=== PATIENT | female | born 1960 | race Caucasian/White ===

== ENCOUNTER 2017-07-11 16:59 | Inpatient (IN) | payer MEDICARE, OTHER ==
[2017-07-11 18:13] LABS: BASO # 0.1 10^3/uL (0.0-0.2); BASO % 0.9 % (0.0-1.0); EOS % 0.4 % (0.0-3.0); HEMATOCRIT 29.2 % (36.0-47.0); HEMOGLOBIN 9.3 g/dl (12.0-15.5); IMMATURE GRANULOCYTE % 0.4 % (0-3.0); LYMPH # 1.1 10^3/uL (1.5-4.5); LYMPH % 15.8 % (24.0-44.0); MEAN CORPUSCULAR HGB CONC 31.8 g/dl (32.0-36.5); MONO # 0.3 10^3/uL (0.0-0.8); MONO % 3.7 % (0.0-5.0); NEUTROPHILS # 5.4 10^3/uL (1.8-7.7); NEUTROPHILS % 78.8 % (36.0-66.0); PLATELET COUNT, AUTOMATED 363 10^3/uL (150-450); RED BLOOD COUNT 3.32 10^6/uL (4.00-5.40); RED CELL DISTRIBUTION WIDTH 14.2 % (11.5-14.5); WHITE BLOOD COUNT 6.8 10^3/uL (4.0-10.0)
[2017-07-11 18:22] LABS: INR 1.12; PROTHROMBIN TIME 14.6 SECONDS (12.4-14.5)
[2017-07-11 18:33] LABS: LACTIC ACID SEPSIS PROTOCOL 1.4 MMOL/L (0.4-2.0)
[2017-07-11 18:36] LABS: ALBUMIN 2.3 GM/DL (3.2-5.2); ALBUMIN/GLOBULIN RATIO 0.56 (1.00-1.93); ALKALINE PHOSPHATASE 192 U/L (45-117); ALT/SGPT 33 U/L (12-78); ANION GAP 11 MEQ/L (8-16); AST/SGOT 11 U/L (7-37); BILIRUBIN,DIRECT < 0.1 MG/DL (0.0-0.2); BILIRUBIN,TOTAL 0.1 MG/DL (0.2-1.0); BLOOD UREA NITROGEN 81 MG/DL (7-18); CALCIUM LEVEL 6.4 MG/DL (8.5-10.1); CARBON DIOXIDE LEVEL 17 MEQ/L (21-32); CHLORIDE LEVEL 110 MEQ/L (98-107); CPK CREATINE PHOSPHOKINASE 111 U/L (26-192); CREATININE FOR GFR 4.42 MG/DL (0.55-1.30); POTASSIUM SERUM 4.7 MEQ/L (3.5-5.1); SODIUM LEVEL 138 MEQ/L (136-145); TOTAL PROTEIN 6.4 GM/DL (6.4-8.2); TROPONIN I 0.03 NG/ML (< 0.10)
[2017-07-11 18:38] LABS: GLUCOSE, FASTING 409 MG/DL (70-100)
[2017-07-11 18:48] LABS: INFLUENZA A AMPLIFICATION NEGATIVE (NEGATIVE); INFLUENZA B AMPLIFICATION NEGATIVE (NEGATIVE)
[2017-07-11 18:51] LABS: CK-MB VALUE MASS 3.4 NG/ML (<3.6); MB/CK RELATIVE INDEX 3.06 (< OR =4); NT-PRO BNP 38772 PG/ML (<125)
[2017-07-11 19:11] LABS: C REACTIVE PROTEIN QUANTITATIV 5.29 MG/DL (0.00-0.30)
[2017-07-11] MEDS: ACETAMINOPHEN TAB 650MG DOSE (2X325MG) PO (19:30)
[2017-07-11 19:42] LABS: ERYTHROCYTE SEDIMENTATION RATE 56 mm/hr (0-30)
[2017-07-11] MEDS ORDERED: DEXTROSE 50% 50 ML SYRINGE IV (21:00)
[2017-07-11] MEDS: CYCLOBENZAPRINE 10 MG TAB PO (21:00)
[2017-07-11] MEDS ORDERED: GLUCAGON FOR INJ 1 MG VIAL (J1610) SC (21:00)
[2017-07-11] MEDS ORDERED: GLUCOSE 4 GM CHEW TABLET PO (21:00)
[2017-07-11] MEDS: PERCOCET 5MG/325MG TAB PO (21:08)
[2017-07-11] MEDS ORDERED: NITROGLYCERIN 0.4 MG SUBL TABLET SL (21:45)
[2017-07-11] MEDS: DOCUSATE SODIUM 100 MG CAP PO (22:40)
[2017-07-11 22:49] LABS: CK-MB VALUE MASS 3.5 NG/ML (<3.6); CPK CREATINE PHOSPHOKINASE 121 U/L (26-192); MB/CK RELATIVE INDEX 2.89 (< OR =4); TROPONIN I 0.04 NG/ML (< 0.10)
[2017-07-11] MEDS: ATORVASTATIN 20 MG TAB PO (23:07)
[2017-07-11] MEDS: ADACEL/BOOSTRIX VACCINE (DIPHTH/PERTUSS/ACELL/TETANUS)0.5ML SYR (90715) IM (23:08)
[2017-07-11] MEDS: NS 1,000 ML IV (23:08)
[2017-07-11] MEDS: METOPROLOL TART 50 MG TAB PO (23:08)
[2017-07-11] MEDS: AUGMENTIN 500 MG TAB PO (23:08)
[2017-07-11] MEDS: LEVEMIR (INSULIN DETEMIR) 1 UNITS/0.01ML SC (23:09)
[2017-07-11] MEDS: HumaLOG INSULIN (NovoLOG) PER UNIT SC (23:09)
[2017-07-12] MEDS: AUGMENTIN 500 MG TAB PO ×4 (00:17→22:23)
[2017-07-12] MEDS: PERCOCET 5MG/325MG TAB PO ×2 (00:56→05:28)
[2017-07-12] MEDS: CYCLOBENZAPRINE 10 MG TAB PO ×2 (02:39→20:32)
[2017-07-12] MEDS: HEPARIN SOD (PORCINE) 5000 UNITS/ML VIAL SC ×3 (05:29→22:23)
[2017-07-12 06:21] LABS: BEDSIDE GLUCOSE 278 MG/DL (70-105)
[2017-07-12 06:21] LABS: BEDSIDE GLUCOSE 496 MG/DL (70-105)
[2017-07-12 06:21] LABS: BEDSIDE GLUCOSE 217 MG/DL (70-105)
[2017-07-12 06:43] LABS: HEMATOCRIT 26.7 % (36.0-47.0); HEMOGLOBIN 8.6 g/dl (12.0-15.5); MEAN CORPUSCULAR HEMOGLOBIN 28.7 pg (27.0-33.0); MEAN CORPUSCULAR HGB CONC 32.2 g/dl (32.0-36.5); PLATELET COUNT, AUTOMATED 314 10^3/uL (150-450); RED CELL DISTRIBUTION WIDTH 14.3 % (11.5-14.5); WHITE BLOOD COUNT 6.8 10^3/uL (4.0-10.0)
[2017-07-12 07:07] LABS: ALBUMIN 1.9 GM/DL (3.2-5.2); ANION GAP 9 MEQ/L (8-16); BLOOD UREA NITROGEN 82 MG/DL (7-18); CALCIUM LEVEL 6.5 MG/DL (8.5-10.1); CARBON DIOXIDE LEVEL 18 MEQ/L (21-32); CHLORIDE LEVEL 114 MEQ/L (98-107); CK-MB VALUE MASS 3.3 NG/ML (<3.6); CPK CREATINE PHOSPHOKINASE 100 U/L (26-192); CREATININE FOR GFR 4.31 MG/DL (0.55-1.30); GLOMERULAR FILTRATION RATE 11.3 (>51); GLUCOSE, FASTING 63 MG/DL (70-100); PHOSPHORUS LEVEL 7.8 MG/DL (2.5-4.9); POTASSIUM SERUM 4.7 MEQ/L (3.5-5.1); SODIUM LEVEL 141 MEQ/L (136-145); TROPONIN I 0.04 NG/ML (< 0.10)
[2017-07-12] MEDS: HumaLOG INSULIN (NovoLOG) PER UNIT SC ×4 (07:30→20:21)
[2017-07-12] MEDS: LACTOBACILLUS ACIDOPHILUS CAP (BACID) PO ×3 (09:02→17:19)
[2017-07-12] MEDS: ASPIRIN 81 MG ENTERIC TAB PO (09:02)
[2017-07-12] MEDS: CLOPIDOGREL 75 MG TAB PO (09:02)
[2017-07-12] MEDS: METOPROLOL TART 50 MG TAB PO ×2 (09:03→20:32)
[2017-07-12] MEDS: LEVEMIR (INSULIN DETEMIR) 1 UNITS/0.01ML SC ×2 (09:03→20:34)
[2017-07-12] MEDS: amLODIPine 5 MG TAB PO (09:03)
[2017-07-12] MEDS: DOCUSATE SODIUM 100 MG CAP PO ×2 (09:03→20:31)
[2017-07-12] MEDS: NS 1,000 ML IV ×2 (13:21→21:30)
[2017-07-12] MEDS: NORCO, ANEXSIA 5/325MG TABLET (HYDROcodone/ACETAMINOPHEN) PO ×2 (14:39→20:34)
[2017-07-12 17:20] LABS: BEDSIDE GLUCOSE 291 MG/DL (70-105)
[2017-07-12] MEDS: ADVAIR HFA 230/21MCG INHALER INH (19:48)
[2017-07-12] MEDS: ATORVASTATIN 20 MG TAB PO (20:32)
[2017-07-12 20:34] LABS: AMORPHOUS SEDIMENT SMALL (NEGATIVE); APPEARANCE, URINE CLOUDY (CLEAR); BACTERIA, URINE AUTO NEGATIVE (NEGATIVE); BILIRUBIN, URINE AUTO NEGATIVE (NEGATIVE); BLOOD, URINE BLOOD 1+ (NEGATIVE); COLOR, URINE YELLOW (YELLOW); GLUCOSE, URINE (UA) AUTO 3+ mg/dL (NEGATIVE); KETONE, URINE AUTO NEGATIVE (NEGATIVE); LEUKOCYTE ESTERASE, URINE AUTO NEGATIVE (NEGATIVE); MUCUS, URINE SMALL (NEGATIVE); NITRITE, URINE AUTO NEGATIVE (NEGATIVE); PROTEIN, URINE AUTO 3+ mg/dL (NEGATIVE); RBC, URINE AUTO 2 /HPF (0-3); SPECIFIC GRAVITY URINE AUTO 1.012 (1.002-1.035); SQUAMOUS EPITHELIAL CELL UR AU 3 /HPF (0-6); UROBILINOGEN, URINE AUTO 0.2 mg/dL (0.0-2.0); WBC, URINE AUTO 2 /HPF (0-3)
[2017-07-12 20:42] LABS: CREATININE,RANDOM URINE 71.2 MG/DL; SODIUM,RANDOM URINE 12 MEQ/L
[2017-07-12 20:47] LABS: BEDSIDE GLUCOSE 208 MG/DL (70-105)
[2017-07-12] MEDS: ACETAMINOPHEN TAB 650MG DOSE (2X325MG) PO (23:41)
[2017-07-13] MEDS ORDERED: UNRESOLVED CLARIFICATION ENTRY XX (00:01)
[2017-07-13] MEDS: NORCO, ANEXSIA 5/325MG TABLET (HYDROcodone/ACETAMINOPHEN) PO ×5 (00:32→21:49)
[2017-07-13] MEDS: AUGMENTIN 500 MG TAB PO ×3 (05:05→21:47)
[2017-07-13] MEDS: HEPARIN SOD (PORCINE) 5000 UNITS/ML VIAL SC ×3 (05:06→21:47)
[2017-07-13 06:11] LABS: HEMATOCRIT 27.2 % (36.0-47.0); HEMOGLOBIN 8.7 g/dl (12.0-15.5); MEAN CORPUSCULAR HEMOGLOBIN 27.6 pg (27.0-33.0); MEAN CORPUSCULAR VOLUME 86.3 fl (80.0-96.0); PLATELET COUNT, AUTOMATED 338 10^3/uL (150-450); RED BLOOD COUNT 3.15 10^6/uL (4.00-5.40); RED CELL DISTRIBUTION WIDTH 14.2 % (11.5-14.5); WHITE BLOOD COUNT 6.1 10^3/uL (4.0-10.0)
[2017-07-13 06:34] LABS: ALBUMIN 1.9 GM/DL (3.2-5.2); ANION GAP 10 MEQ/L (8-16); BLOOD UREA NITROGEN 82 MG/DL (7-18); C REACTIVE PROTEIN QUANTITATIV 3.99 MG/DL (0.00-0.30); CALCIUM LEVEL 6.2 MG/DL (8.5-10.1); CARBON DIOXIDE LEVEL 14 MEQ/L (21-32); CHLORIDE LEVEL 112 MEQ/L (98-107); GLOMERULAR FILTRATION RATE 11.7 (>51); GLUCOSE, FASTING 59 MG/DL (70-100); PHOSPHORUS LEVEL 7.8 MG/DL (2.5-4.9); SODIUM LEVEL 136 MEQ/L (136-145)
[2017-07-13] MEDS: HumaLOG INSULIN (NovoLOG) PER UNIT SC ×4 (07:18→21:00)
[2017-07-13 07:38] LABS: BEDSIDE GLUCOSE 193 MG/DL (70-105)
[2017-07-13] MEDS: ADVAIR HFA 230/21MCG INHALER INH ×2 (07:52→21:42)
[2017-07-13] MEDS: LEVEMIR (INSULIN DETEMIR) 1 UNITS/0.01ML SC ×3 (08:53→21:00)
[2017-07-13] MEDS: amLODIPine 5 MG TAB PO (08:58)
[2017-07-13] MEDS: LACTOBACILLUS ACIDOPHILUS CAP (BACID) PO ×3 (08:58→17:34)
[2017-07-13] MEDS: CLOPIDOGREL 75 MG TAB PO (08:59)
[2017-07-13] MEDS: METOPROLOL TART 50 MG TAB PO ×2 (08:59→21:46)
[2017-07-13] MEDS: DOCUSATE SODIUM 100 MG CAP PO ×2 (08:59→21:47)
[2017-07-13] MEDS: ASPIRIN 81 MG ENTERIC TAB PO (08:59)
[2017-07-13 12:29] LABS: BEDSIDE GLUCOSE 167 MG/DL (70-105)
[2017-07-13] MEDS: SODIUM BICARBONATE 150 MEQ in STERILE WATER LITER BAG 1,000 ML IV (12:35)
[2017-07-13 16:55] LABS: BEDSIDE GLUCOSE 120 MG/DL (70-105)
[2017-07-13] MEDS: FUROSEMIDE 40 MG/4 ML VIAL (J1940) IV (17:34)
[2017-07-13 20:53] LABS: BEDSIDE GLUCOSE 235 MG/DL (70-105)
[2017-07-13] MEDS: ATORVASTATIN 20 MG TAB PO (21:46)
[2017-07-13] MEDS: CYCLOBENZAPRINE 10 MG TAB PO (21:47)
[2017-07-14] MEDS: SODIUM BICARBONATE 150 MEQ in STERILE WATER LITER BAG 1,000 ML IV ×3 (02:38→21:57)
[2017-07-14] MEDS: NORCO, ANEXSIA 5/325MG TABLET (HYDROcodone/ACETAMINOPHEN) PO ×4 (02:43→21:56)
[2017-07-14] MEDS: AUGMENTIN 500 MG TAB PO ×3 (05:36→21:53)
[2017-07-14] MEDS: HEPARIN SOD (PORCINE) 5000 UNITS/ML VIAL SC ×3 (05:37→21:54)
[2017-07-14 06:31] LABS: HEMATOCRIT 24.3 % (36.0-47.0); HEMOGLOBIN 7.9 g/dl (12.0-15.5); MEAN CORPUSCULAR HEMOGLOBIN 28.2 pg (27.0-33.0); MEAN CORPUSCULAR HGB CONC 32.5 g/dl (32.0-36.5); MEAN CORPUSCULAR VOLUME 86.8 fl (80.0-96.0); PLATELET COUNT, AUTOMATED 305 10^3/uL (150-450); WHITE BLOOD COUNT 5.8 10^3/uL (4.0-10.0)
[2017-07-14 06:44] LABS: ALBUMIN 1.8 GM/DL (3.2-5.2); BLOOD UREA NITROGEN 78 MG/DL (7-18); C REACTIVE PROTEIN QUANTITATIV 6.52 MG/DL (0.00-0.30); CHLORIDE LEVEL 101 MEQ/L (98-107); CREATININE FOR GFR 4.03 MG/DL (0.55-1.30); GLUCOSE, FASTING 297 MG/DL (70-100); PHOSPHORUS LEVEL 7.4 MG/DL (2.5-4.9); POTASSIUM SERUM 4.9 MEQ/L (3.5-5.1); SODIUM LEVEL 130 MEQ/L (136-145)
[2017-07-14] MEDS: HumaLOG INSULIN (NovoLOG) PER UNIT SC ×4 (07:30→21:00)
[2017-07-14] MEDS: LEVEMIR (INSULIN DETEMIR) 1 UNITS/0.01ML SC ×2 (09:03→21:55)
[2017-07-14] MEDS: LACTOBACILLUS ACIDOPHILUS CAP (BACID) PO ×3 (09:03→16:07)
[2017-07-14] MEDS: amLODIPine 5 MG TAB PO (09:04)
[2017-07-14] MEDS: METOPROLOL TART 50 MG TAB PO ×2 (09:04→21:54)
[2017-07-14] MEDS: DOCUSATE SODIUM 100 MG CAP PO ×2 (09:04→21:53)
[2017-07-14] MEDS: CLOPIDOGREL 75 MG TAB PO (09:16)
[2017-07-14] MEDS: ASPIRIN 81 MG ENTERIC TAB PO (09:16)
[2017-07-14] MEDS: ADVAIR HFA 230/21MCG INHALER INH ×2 (09:41→21:18)
[2017-07-14] MEDS ORDERED: guaiFENesin SYRUP 200 MG/10 ML UDC PO (09:45)
[2017-07-14 10:30] LABS: ANION GAP 13 MEQ/L (8-16); CARBON DIOXIDE LEVEL 16 MEQ/L (21-32)
[2017-07-14] MEDS: CALCIUM CARBONATE 500 MG CHEW U/D PO ×2 (12:00→16:07)
[2017-07-14 12:37] LABS: BEDSIDE GLUCOSE 334 MG/DL (70-105)
[2017-07-14 12:59] LABS: IMMEDIATE SPIN CROSSMATCH 1 1
[2017-07-14 13:58] LABS: FERRITIN 69 NG/ML (8-252); IRON (FE) 22 UG/DL (50-170); PERCENT SATURATION 10.8 % (13.2-45.0); TOTAL IRON BINDING CAPACITY 204 UG/DL (250-450)
[2017-07-14 14:20] LABS: OSMOLALITY SERUM 301 MOSM/KG (275-295)
[2017-07-14 15:53] LABS: BEDSIDE GLUCOSE 214 MG/DL (70-105)
[2017-07-14] MEDS: IPRATROPIUM 0.5MG/ALBUTEROL 2.5MG INH SOL UD 3ML (DUONEB)(J7620) NEB (16:18)
[2017-07-14 20:57] LABS: BEDSIDE GLUCOSE 143 MG/DL (70-105)
[2017-07-14] MEDS: CYCLOBENZAPRINE 10 MG TAB PO (21:53)
[2017-07-14] MEDS: ATORVASTATIN 20 MG TAB PO (21:53)
[2017-07-15] MEDS: ALPRAZolam 0.25 MG TAB PO ×2 (00:06→14:06)
[2017-07-15] MEDS: NORCO, ANEXSIA 5/325MG TABLET (HYDROcodone/ACETAMINOPHEN) PO ×3 (03:34→22:26)
[2017-07-15 05:51] LABS: HEMATOCRIT 26.9 % (36.0-47.0); HEMOGLOBIN 9.1 g/dl (12.0-15.5); MEAN CORPUSCULAR HEMOGLOBIN 27.7 pg (27.0-33.0); MEAN CORPUSCULAR HGB CONC 33.8 g/dl (32.0-36.5); PLATELET COUNT, AUTOMATED 314 10^3/uL (150-450); RED BLOOD COUNT 3.28 10^6/uL (4.00-5.40); RED CELL DISTRIBUTION WIDTH 14.7 % (11.5-14.5); WHITE BLOOD COUNT 8.4 10^3/uL (4.0-10.0)
[2017-07-15] MEDS: HEPARIN SOD (PORCINE) 5000 UNITS/ML VIAL SC (05:59)
[2017-07-15] MEDS: AUGMENTIN 500 MG TAB PO ×3 (05:59→22:27)
[2017-07-15 06:06] LABS: ALBUMIN 1.8 GM/DL (3.2-5.2); ANION GAP 14 MEQ/L (8-16); BLOOD UREA NITROGEN 73 MG/DL (7-18); CALCIUM LEVEL 5.8 MG/DL (8.5-10.1); CARBON DIOXIDE LEVEL 18 MEQ/L (21-32); CHLORIDE LEVEL 100 MEQ/L (98-107); CREATININE FOR GFR 3.98 MG/DL (0.55-1.30); GLOMERULAR FILTRATION RATE 12.4 (>51); GLUCOSE, FASTING 216 MG/DL (70-100); PHOSPHORUS LEVEL 7.2 MG/DL (2.5-4.9); POTASSIUM SERUM 4.6 MEQ/L (3.5-5.1); SODIUM LEVEL 132 MEQ/L (136-145)
[2017-07-15 06:43] LABS: OSMOLALITY URINE 238 MOSM/KG (500-800)
[2017-07-15 06:57] LABS: AMORPHOUS SEDIMENT SMALL (NEGATIVE); APPEARANCE, URINE HAZY (CLEAR); BACTERIA, URINE AUTO NEGATIVE (NEGATIVE); BILIRUBIN, URINE AUTO NEGATIVE (NEGATIVE); BLOOD, URINE BLOOD 1+ (NEGATIVE); COLOR, URINE YELLOW (YELLOW); GLUCOSE, URINE (UA) AUTO 1+ mg/dL (NEGATIVE); KETONE, URINE AUTO NEGATIVE (NEGATIVE); LEUKOCYTE ESTERASE, URINE AUTO NEGATIVE (NEGATIVE); MUCUS, URINE SMALL (NEGATIVE); NITRITE, URINE AUTO NEGATIVE (NEGATIVE); PROTEIN, URINE AUTO 3+ mg/dL (NEGATIVE); RBC, URINE AUTO 1 /HPF (0-3); SQUAMOUS EPITHELIAL CELL UR AU 2 /HPF (0-6); UROBILINOGEN, URINE AUTO 0.2 mg/dL (0.0-2.0); WBC, URINE AUTO 3 /HPF (0-3)
[2017-07-15 07:07] LABS: CREATININE,RANDOM URINE 46.2 MG/DL; SODIUM,RANDOM URINE 14 MEQ/L
[2017-07-15 08:07] LABS: TRANSFERRIN 150 mg/dL (200-370)
[2017-07-15] MEDS: ADVAIR HFA 230/21MCG INHALER INH ×2 (08:10→21:00)
[2017-07-15] MEDS: LACTOBACILLUS ACIDOPHILUS CAP (BACID) PO ×3 (08:54→17:56)
[2017-07-15] MEDS: ASPIRIN 81 MG ENTERIC TAB PO (08:54)
[2017-07-15] MEDS: amLODIPine 5 MG TAB PO (08:56)
[2017-07-15] MEDS: CLOPIDOGREL 75 MG TAB PO (08:56)
[2017-07-15] MEDS: CALCIUM CARBONATE 500 MG CHEW U/D PO ×3 (08:57→17:57)
[2017-07-15] MEDS: DOCUSATE SODIUM 100 MG CAP PO ×2 (08:57→22:27)
[2017-07-15] MEDS: METOPROLOL TART 50 MG TAB PO ×2 (08:57→22:25)
[2017-07-15] MEDS: LEVEMIR (INSULIN DETEMIR) 1 UNITS/0.01ML SC ×2 (08:58→22:28)
[2017-07-15] MEDS: SODIUM BICARBONATE 150 MEQ in STERILE WATER LITER BAG 1,000 ML IV (08:58)
[2017-07-15] MEDS: HumaLOG INSULIN (NovoLOG) PER UNIT SC ×4 (08:58→22:28)
[2017-07-15 12:17] LABS: BEDSIDE GLUCOSE 322 MG/DL (70-105)
[2017-07-15 12:37] LABS: PARTIAL THROMBOPLASTIN TIME 40.3 SECONDS (26.8-37.9)
[2017-07-15] MEDS: HEPARIN DRIP 25,000 UNITS in APPROPRIATE DILUENT 1 EA IV (14:06)
[2017-07-15] MEDS ORDERED: IRON SUCROSE 100MG 5ML VIAL (J1756 PER 1MG) IV (15:15)
[2017-07-15 16:57] LABS: BEDSIDE GLUCOSE 99 MG/DL (70-105)
[2017-07-15 20:13] LABS: PARTIAL THROMBOPLASTIN TIME 99.1 SECONDS (26.8-37.9)
[2017-07-15] MEDS: ONDANSETRON 4MG/2ML VIAL (J2405) IV (20:36)
[2017-07-15 20:40] LABS: ESTIMATED AVERAGE GLUCOSE 235 MG/DL (60-110); HEMOGLOBIN A1c 9.8 %
[2017-07-15 20:56] LABS: BEDSIDE GLUCOSE 72 MG/DL (70-105)
[2017-07-15 21:15] LABS: CHOLESTEROL LEVEL 95 MG/DL (<200); CHOLESTEROL RISK RATIO 1.979 (<5); HDL CHOLESTEROL 48 MG/DL (>40); LDL CHOLESTEROL 34.6 MG/DL (<100); NON-HDL-C 47 MG/DL; TRIGLYCERIDES LEVEL 62 MG/DL (<150)
[2017-07-15] MEDS: SODIUM BICARBONATE 325 MG TAB PO (22:24)
[2017-07-15] MEDS: CYCLOBENZAPRINE 10 MG TAB PO (22:24)
[2017-07-15] MEDS: ATORVASTATIN 20 MG TAB PO (22:27)
[2017-07-16 02:26] LABS: PARTIAL THROMBOPLASTIN TIME 81.5 SECONDS (26.8-37.9)
[2017-07-16] MEDS: NORCO, ANEXSIA 5/325MG TABLET (HYDROcodone/ACETAMINOPHEN) PO ×4 (03:05→20:20)
[2017-07-16 06:12] LABS: HEMATOCRIT 27.6 % (36.0-47.0); HEMOGLOBIN 9.1 g/dl (12.0-15.5); MEAN CORPUSCULAR HEMOGLOBIN 27.2 pg (27.0-33.0); MEAN CORPUSCULAR VOLUME 82.4 fl (80.0-96.0); PLATELET COUNT, AUTOMATED 339 10^3/uL (150-450); RED BLOOD COUNT 3.35 10^6/uL (4.00-5.40); RED CELL DISTRIBUTION WIDTH 14.7 % (11.5-14.5); WHITE BLOOD COUNT 8.3 10^3/uL (4.0-10.0)
[2017-07-16 06:31] LABS: ALBUMIN 1.9 GM/DL (3.2-5.2); ANION GAP 12 MEQ/L (8-16); BLOOD UREA NITROGEN 71 MG/DL (7-18); CARBON DIOXIDE LEVEL 21 MEQ/L (21-32); CHLORIDE LEVEL 96 MEQ/L (98-107); CREATININE FOR GFR 4.06 MG/DL (0.55-1.30); GLOMERULAR FILTRATION RATE 12.1 (>51); GLUCOSE, FASTING 237 MG/DL (70-100); PHOSPHORUS LEVEL 7.4 MG/DL (2.5-4.9); POTASSIUM SERUM 4.9 MEQ/L (3.5-5.1); SODIUM LEVEL 129 MEQ/L (136-145)
[2017-07-16] MEDS: AUGMENTIN 500 MG TAB PO ×3 (06:37→20:20)
[2017-07-16 06:42] LABS: PARTIAL THROMBOPLASTIN TIME 123.6 SECONDS (26.8-37.9)
[2017-07-16] MEDS: HumaLOG INSULIN (NovoLOG) PER UNIT SC ×4 (07:30→20:14)
[2017-07-16] MEDS: ADVAIR HFA 230/21MCG INHALER INH ×2 (08:27→20:38)
[2017-07-16] MEDS: CALCIUM CARBONATE 500 MG CHEW U/D PO ×3 (09:29→17:28)
[2017-07-16] MEDS: LACTOBACILLUS ACIDOPHILUS CAP (BACID) PO ×3 (09:30→17:29)
[2017-07-16] MEDS: CLOPIDOGREL 75 MG TAB PO (09:30)
[2017-07-16] MEDS: DOCUSATE SODIUM 100 MG CAP PO ×2 (09:30→20:20)
[2017-07-16] MEDS: METOPROLOL TART 50 MG TAB PO ×2 (09:30→20:21)
[2017-07-16] MEDS: PANTOPRAZOLE 40MG INJ (PROTONIX) (C9113) IV (09:31)
[2017-07-16] MEDS: SODIUM BICARBONATE 325 MG TAB PO ×2 (09:31→20:19)
[2017-07-16] MEDS: amLODIPine 5 MG TAB PO (09:31)
[2017-07-16] MEDS: ASPIRIN 81 MG ENTERIC TAB PO (09:31)
[2017-07-16] MEDS: LEVEMIR (INSULIN DETEMIR) 1 UNITS/0.01ML SC ×2 (09:32→20:22)
[2017-07-16] MEDS: GI COCKTAIL 50ML BTL(HYOSCYAMINE/MAALOX/LIDOCAINE VISCOUS)(1:3:1) PO (09:33)
[2017-07-16] MEDS: ONDANSETRON 4MG/2ML VIAL (J2405) IV (10:52)
[2017-07-16] MEDS: ALPRAZolam 0.25 MG TAB PO ×2 (10:52→20:21)
[2017-07-16 12:40] LABS: BEDSIDE GLUCOSE 376 MG/DL (70-105)
[2017-07-16] MEDS: HEPARIN DRIP 25,000 UNITS in APPROPRIATE DILUENT 1 EA IV (12:51)
[2017-07-16 13:58] LABS: PARTIAL THROMBOPLASTIN TIME 57.1 SECONDS (26.8-37.9)
[2017-07-16] MEDS: HEPARIN SOD (PORCINE) 5000 UNITS/ML VIAL IV (16:02)
[2017-07-16 17:13] LABS: BEDSIDE GLUCOSE 280 MG/DL (70-105)
[2017-07-16] MEDS: FUROSEMIDE 100 MG/10 ML VIAL (J1940) IV (17:28)
[2017-07-16] MEDS: CYCLOBENZAPRINE 10 MG TAB PO (20:19)
[2017-07-16] MEDS: ATORVASTATIN 20 MG TAB PO (20:20)
[2017-07-16 20:32] LABS: BEDSIDE GLUCOSE 157 MG/DL (70-105)
[2017-07-16 22:16] LABS: PARTIAL THROMBOPLASTIN TIME 84.5 SECONDS (26.8-37.9)
[2017-07-16] MEDS: MOM 30ML SUSPENSION UDC PO (23:59)
[2017-07-17 01:15] LABS: BEDSIDE GLUCOSE 170 MG/DL (70-105)
[2017-07-17] MEDS: NORCO, ANEXSIA 5/325MG TABLET (HYDROcodone/ACETAMINOPHEN) PO ×5 (02:21→22:15)
[2017-07-17] MEDS: ACETAMINOPHEN TAB 650MG DOSE (2X325MG) PO ×2 (03:16→19:47)
[2017-07-17 04:27] LABS: HEMATOCRIT 29.2 % (36.0-47.0); HEMOGLOBIN 9.5 g/dl (12.0-15.5); MEAN CORPUSCULAR HEMOGLOBIN 27.4 pg (27.0-33.0); MEAN CORPUSCULAR HGB CONC 32.5 g/dl (32.0-36.5); MEAN CORPUSCULAR VOLUME 84.1 fl (80.0-96.0); PLATELET COUNT, AUTOMATED 346 10^3/uL (150-450); RED BLOOD COUNT 3.47 10^6/uL (4.00-5.40); RED CELL DISTRIBUTION WIDTH 14.9 % (11.5-14.5); WHITE BLOOD COUNT 7.3 10^3/uL (4.0-10.0)
[2017-07-17 04:39] LABS: PARTIAL THROMBOPLASTIN TIME 73.5 SECONDS (26.8-37.9)
[2017-07-17 04:43] LABS: ALBUMIN 1.9 GM/DL (3.2-5.2); ANION GAP 9 MEQ/L (8-16); BLOOD UREA NITROGEN 78 MG/DL (7-18); CALCIUM LEVEL 6.2 MG/DL (8.5-10.1); CARBON DIOXIDE LEVEL 26 MEQ/L (21-32); CHLORIDE LEVEL 97 MEQ/L (98-107); CREATININE FOR GFR 4.37 MG/DL (0.55-1.30); GLOMERULAR FILTRATION RATE 11.1 (>51); GLUCOSE, FASTING 113 MG/DL (70-100); PHOSPHORUS LEVEL 7.3 MG/DL (2.5-4.9); SODIUM LEVEL 132 MEQ/L (136-145)
[2017-07-17 05:19] LABS: POTASSIUM SERUM 5.4 MEQ/L (3.5-5.1)
[2017-07-17] MEDS: AUGMENTIN 500 MG TAB PO ×3 (06:18→20:44)
[2017-07-17] MEDS: HumaLOG INSULIN (NovoLOG) PER UNIT SC ×4 (07:30→20:45)
[2017-07-17] MEDS ORDERED: DARBEPOETIN 100 MCG/0.5 ML *DIALYSIS* SYRINGE (J0882) IV (08:00)
[2017-07-17] MEDS: PANTOPRAZOLE 40MG INJ (PROTONIX) (C9113) IV (08:17)
[2017-07-17] MEDS: LACTOBACILLUS ACIDOPHILUS CAP (BACID) PO ×3 (08:17→17:41)
[2017-07-17] MEDS: amLODIPine 5 MG TAB PO (08:18)
[2017-07-17] MEDS: CALCIUM CARBONATE 500 MG CHEW U/D PO ×3 (08:18→17:41)
[2017-07-17] MEDS: DOCUSATE SODIUM 100 MG CAP PO ×2 (08:18→20:44)
[2017-07-17] MEDS: METOPROLOL TART 50 MG TAB PO ×2 (08:18→20:45)
[2017-07-17] MEDS: ADVAIR HFA 230/21MCG INHALER INH ×2 (08:19→20:58)
[2017-07-17] MEDS: ALPRAZolam 0.25 MG TAB PO ×2 (09:21→19:47)
[2017-07-17] MEDS: ONDANSETRON 4MG/2ML VIAL (J2405) IV (09:22)
[2017-07-17] MEDS: ASPIRIN 81 MG ENTERIC TAB PO (09:22)
[2017-07-17] MEDS: CLOPIDOGREL 75 MG TAB PO (09:22)
[2017-07-17] MEDS: LEVEMIR (INSULIN DETEMIR) 1 UNITS/0.01ML SC ×2 (09:22→20:45)
[2017-07-17 10:44] LABS: PTH INTACT 616.3 PG/ML (18.5-88.0)
[2017-07-17] MEDS ORDERED: HEPARIN 1,000 UNITS/ML 10ML VIAL (FOR RADIOLOGY& DIALYSIS ONLY) As Ordered (11:11)
[2017-07-17] MEDS ORDERED: LIDOCAINE 2% MDV 20 ML VIAL As Ordered (11:29)
[2017-07-17 11:59] LABS: HEPATITIS B SURFACE ANTIBODY NEGATIVE (POSITIVE)
[2017-07-17 12:08] LABS: HEPATITIS B SURFACE ANTIGEN NEGATIVE (NEGATIVE)
[2017-07-17 12:36] LABS: HEPATITIS B CORE ANTIBODY IGM NEGATIVE (NEGATIVE); HEPATITIS C VIRUS ABY INDEX < 0.0 INDEX (<0.8)
[2017-07-17] MEDS: HEPARIN 1,000 UNITS/ML 10ML VIAL (FOR RADIOLOGY& DIALYSIS ONLY) XX (12:49)
[2017-07-17] MEDS: HEPARIN 1,000 UNITS/ML 10ML VIAL (FOR RADIOLOGY& DIALYSIS ONLY) IV (12:49)
[2017-07-17 13:16] LABS: BEDSIDE GLUCOSE 70 MG/DL (70-105)
[2017-07-17 13:16] LABS: BEDSIDE GLUCOSE 152 MG/DL (70-105)
[2017-07-17] MEDS: HEPARIN DRIP 25,000 UNITS in APPROPRIATE DILUENT 1 EA IV (13:43)
[2017-07-17] MEDS: CALCITRIOL 0.25 MCG CAP (S0169) PO (13:44)
[2017-07-17] MEDS: ATORVASTATIN 20 MG TAB PO (20:44)
[2017-07-17] MEDS: CYCLOBENZAPRINE 10 MG TAB PO (20:44)
[2017-07-17 21:30] LABS: BEDSIDE GLUCOSE 194 MG/DL (70-105)
[2017-07-18] MEDS: AUGMENTIN 500 MG TAB PO ×2 (05:49→15:55)
[2017-07-18] MEDS: NORCO, ANEXSIA 5/325MG TABLET (HYDROcodone/ACETAMINOPHEN) PO ×3 (05:50→15:57)
[2017-07-18 06:08] LABS: HEMATOCRIT 27.7 % (36.0-47.0); MEAN CORPUSCULAR HEMOGLOBIN 27.5 pg (27.0-33.0); MEAN CORPUSCULAR HGB CONC 32.5 g/dl (32.0-36.5); MEAN CORPUSCULAR VOLUME 84.7 fl (80.0-96.0); PLATELET COUNT, AUTOMATED 356 10^3/uL (150-450); RED BLOOD COUNT 3.27 10^6/uL (4.00-5.40); RED CELL DISTRIBUTION WIDTH 14.8 % (11.5-14.5); WHITE BLOOD COUNT 9.2 10^3/uL (4.0-10.0)
[2017-07-18 06:20] LABS: PARTIAL THROMBOPLASTIN TIME 47.7 SECONDS (26.8-37.9)
[2017-07-18 06:23] LABS: ALBUMIN 1.8 GM/DL (3.2-5.2); ANION GAP 9 MEQ/L (8-16); BLOOD UREA NITROGEN 56 MG/DL (7-18); CARBON DIOXIDE LEVEL 24 MEQ/L (21-32); CHLORIDE LEVEL 101 MEQ/L (98-107); CREATININE FOR GFR 3.55 MG/DL (0.55-1.30); GLOMERULAR FILTRATION RATE 14.2 (>51); GLUCOSE, FASTING 336 MG/DL (70-100); PHOSPHORUS LEVEL 5.3 MG/DL (2.5-4.9); POTASSIUM SERUM 4.9 MEQ/L (3.5-5.1); SODIUM LEVEL 134 MEQ/L (136-145)
[2017-07-18] MEDS: HEPARIN SOD (PORCINE) 5000 UNITS/ML VIAL IV (06:40)
[2017-07-18] MEDS: HEPARIN DRIP 25,000 UNITS in APPROPRIATE DILUENT 1 EA IV (06:43)
[2017-07-18 06:44] LABS: BEDSIDE GLUCOSE 200 MG/DL (70-105)
[2017-07-18] MEDS: LACTOBACILLUS ACIDOPHILUS CAP (BACID) PO ×2 (06:59→12:06)
[2017-07-18] MEDS: CALCIUM CARBONATE 500 MG CHEW U/D PO ×2 (06:59→12:05)
[2017-07-18] MEDS: CLOPIDOGREL 75 MG TAB PO (06:59)
[2017-07-18] MEDS: amLODIPine 5 MG TAB PO (07:00)
[2017-07-18] MEDS: DOCUSATE SODIUM 100 MG CAP PO (07:00)
[2017-07-18] MEDS: ASPIRIN 81 MG ENTERIC TAB PO (07:00)
[2017-07-18] MEDS: ALPRAZolam 0.25 MG TAB PO (07:00)
[2017-07-18] MEDS: METOPROLOL TART 50 MG TAB PO (07:00)
[2017-07-18] MEDS: PANTOPRAZOLE 40MG INJ (PROTONIX) (C9113) IV (07:01)
[2017-07-18] MEDS: LEVEMIR (INSULIN DETEMIR) 1 UNITS/0.01ML SC (07:01)
[2017-07-18] MEDS: HumaLOG INSULIN (NovoLOG) PER UNIT SC ×2 (07:01→12:06)
[2017-07-18] MEDS: ADVAIR HFA 230/21MCG INHALER INH (07:21)
[2017-07-18 08:24] LABS: HEPATITIS B CORE ANTIBODY IGG Negative (Negative)
[2017-07-18] MEDS: HEPARIN 1,000 UNITS/ML 10ML VIAL (FOR RADIOLOGY& DIALYSIS ONLY) IV (10:45)
[2017-07-18 11:26] LABS: BEDSIDE GLUCOSE 203 MG/DL (70-105)
[2017-07-18 14:01] LABS: PARTIAL THROMBOPLASTIN TIME 187.2 SECONDS (26.8-37.9)
[2017-07-18 17:21] LABS: BEDSIDE GLUCOSE 136 MG/DL (70-105)
[2017-07-18] MEDS ORDERED: predniSONE 50 MG TAB PO (20:00)
[2017-07-18] MEDS ORDERED: diphenhydrAMINE 50 MG CAP PO (20:00)
[2017-07-19] MEDS ORDERED: predniSONE 50 MG TAB PO ×2 (02:00→09:00)
[2017-07-19] MEDS ORDERED: diphenhydrAMINE 50 MG CAP PO ×2 (02:00→09:00)
== END 2017-07-18 18:15 | disposition left against medical advice (07) | DRG 683 ==
LOC: M MSPAV 07-12 15:07 → M ED 16:59 → M ED INP 21:23
PROVIDERS: Hospitalist
PROC: 30233N1 Transfusion of Nonautologous Red Blood Cells into Peripheral Vein, Percutaneous Approach (ICD-10-PCS; 2017-07-14)
PROC: 5A1D70Z Performance of Urinary Filtration, Intermittent, Less than 6 Hours Per Day (ICD-10-PCS; principal; 2017-07-17)
PROC: 02HV33Z Insertion of Infusion Device into Superior Vena Cava, Percutaneous Approach (ICD-10-PCS; 2017-07-17)
PROC: B518YZA Fluoroscopy of Superior Vena Cava using Other Contrast, Guidance (ICD-10-PCS; 2017-07-17)
PROC: B548ZZA Ultrasonography of Superior Vena Cava, Guidance (ICD-10-PCS; 2017-07-17)
DX: N17.9 Acute kidney failure, unspecified (principal); E87.2 Acidosis; L03.115 Cellulitis of right lower limb; I12.0 Hypertensive chronic kidney disease with stage 5 chronic kidney disease or end stage renal disease; L97.519 Non-pressure chronic ulcer of other part of right foot with unspecified severity; N18.5 Chronic kidney disease, stage 5; S91.155A Open bite of left lesser toe(s) without damage to nail, initial encounter; E11.51 Type 2 diabetes mellitus with diabetic peripheral angiopathy without gangrene; F17.210 Nicotine dependence, cigarettes, uncomplicated; E78.5 Hyperlipidemia, unspecified; J44.9 Chronic obstructive pulmonary disease, unspecified; Z90.49 Acquired absence of other specified parts of digestive tract; Z79.82 Long term (current) use of aspirin; Z79.4 Long term (current) use of insulin; Z88.5 Allergy status to narcotic agent; Z91.041 Radiographic dye allergy status; Z89.512 Acquired absence of left leg below knee; Z95.9 Presence of cardiac and vascular implant and graft, unspecified; I25.2 Old myocardial infarction; W55.01XA Bitten by cat, initial encounter; Y92.9 Unspecified place or not applicable; Y93.9 Activity, unspecified

== ENCOUNTER 2017-08-17 13:55 | Inpatient (IN) | payer MEDICARE ==
[2017-08-17 14:51] LABS: BASO % 0.3 % (0.0-1.0); EOS # 0.1 10^3/uL (0.0-0.50); EOS % 0.5 % (0.0-3.0); HEMATOCRIT 27.7 % (36.0-47.0); HEMOGLOBIN 8.4 g/dl (12.0-15.5); IMMATURE GRANULOCYTE % 0.5 % (0-3.0); LYMPH # 0.5 10^3/uL (1.5-4.5); LYMPH % 3.8 % (24.0-44.0); MEAN CORPUSCULAR HEMOGLOBIN 27.2 pg (27.0-33.0); MEAN CORPUSCULAR HGB CONC 30.3 g/dl (32.0-36.5); MEAN CORPUSCULAR VOLUME 89.6 fl (80.0-96.0); MONO # 0.4 10^3/uL (0.0-0.8); MONO % 3.4 % (0.0-5.0); NEUTROPHILS # 11.9 10^3/uL (1.8-7.7); NEUTROPHILS % 91.5 % (36.0-66.0); PLATELET COUNT, AUTOMATED 466 10^3/uL (150-450); RED BLOOD COUNT 3.09 10^6/uL (4.00-5.40); RED CELL DISTRIBUTION WIDTH 17.6 % (11.5-14.5)
[2017-08-17 14:59] LABS: ABG BASE EXCESS 1.6 (-2.0-2.0); ABG HCO3 26.3 MEQ/L (22.0-26.0); ABG O2 SATURATION 96.9 % (95.0-99.0); ABG PARTIAL PRESSURE CO2 42.2 mmHg (35.0-45.0); ABG PARTIAL PRESSURE O2 85.7 mmHg (75.0-100.0); ABG STANDARD HCO3 25.9 MEQ/L (22.0-26.0); ABG TOTAL CO2 27.6 MEQ/L (22.0-29.0); ABG pH (ARTERIAL) 7.413 UNITS (7.350-7.450)
[2017-08-17 15:05] LABS: LACTIC ACID SEPSIS PROTOCOL 1.9 MMOL/L (0.4-2.0)
[2017-08-17 15:06] LABS: ALBUMIN 2.4 GM/DL (3.2-5.2); ALBUMIN/GLOBULIN RATIO 0.62 (1.00-1.93); ALKALINE PHOSPHATASE 189 U/L (45-117); ALT/SGPT 18 U/L (12-78); ANION GAP 10 MEQ/L (8-16); AST/SGOT 20 U/L (7-37); BILIRUBIN,DIRECT 0.2 MG/DL (0.0-0.2); BILIRUBIN,TOTAL 0.3 MG/DL (0.2-1.0); BLOOD UREA NITROGEN 36 MG/DL (7-18); CALCIUM LEVEL 7.7 MG/DL (8.5-10.1); CARBON DIOXIDE LEVEL 25 MEQ/L (21-32); CHLORIDE LEVEL 104 MEQ/L (98-107); CPK CREATINE PHOSPHOKINASE 99 U/L (26-192); CREATININE FOR GFR 3.36 MG/DL (0.55-1.30); GLOMERULAR FILTRATION RATE 15.1 (>51); GLUCOSE, FASTING 123 MG/DL (70-100); POTASSIUM SERUM 4.4 MEQ/L (3.5-5.1); SODIUM LEVEL 139 MEQ/L (136-145); THYROXINE (T4) 7.1 UG/DL (4.5-12.0); TOTAL PROTEIN 6.3 GM/DL (6.4-8.2); TROPONIN I 0.07 NG/ML (< 0.10)
[2017-08-17 15:08] LABS: INR 1.05; PROTHROMBIN TIME 13.8 SECONDS (12.4-14.5)
[2017-08-17 15:19] LABS: CK-MB VALUE MASS 2.3 NG/ML (<3.6); MB/CK RELATIVE INDEX 2.32 (< OR =4); NT-PRO BNP 66262 PG/ML (<125)
[2017-08-17 17:04] LABS: INFLUENZA A AMPLIFICATION NEGATIVE (NEGATIVE); INFLUENZA B AMPLIFICATION NEGATIVE (NEGATIVE); RSV AMPLIFICATION NEGATIVE (NEGATIVE)
[2017-08-17] MEDS: CLINDAMYCIN 600 MG in APPROPRIATE DILUENT 1 EA IV (18:15)
[2017-08-17] MEDS: FLEET ENEMA PR (18:40)
[2017-08-17] MEDS ORDERED: GLUCAGON FOR INJ 1 MG VIAL (J1610) SC (19:45)
[2017-08-17] MEDS ORDERED: ALBUTEROL SULFATE 2.5 MG/0.5 ML INH NEB SOLN NEB (19:45)
[2017-08-17] MEDS ORDERED: DEXTROSE 50% 50 ML SYRINGE IV (19:45)
[2017-08-17] MEDS ORDERED: ACETAMINOPHEN TAB 650MG DOSE (2X325MG) PO (19:45)
[2017-08-17] MEDS ORDERED: GLUCOSE 4 GM CHEW TABLET PO (19:45)
[2017-08-17] MEDS ORDERED: MIRALAX *UNIT DOSE* 17GM PACKET PO (20:00)
[2017-08-17] MEDS ORDERED: ALBUTEROL 90 MCG/ACT 8GM HFA INHALER INH (20:15)
[2017-08-17 20:46] LABS: CPK CREATINE PHOSPHOKINASE 93 U/L (26-192)
[2017-08-17 20:47] LABS: CK-MB VALUE MASS 2.3 NG/ML (<3.6); MB/CK RELATIVE INDEX 2.47 (< OR =4)
[2017-08-17] MEDS: ALPRAZolam 0.25 MG TAB PO (21:38)
[2017-08-17] MEDS: ATORVASTATIN 20 MG TAB PO (21:39)
[2017-08-17] MEDS: METOPROLOL TART 50 MG TAB PO (21:39)
[2017-08-17] MEDS: FUROSEMIDE 100 MG/10 ML VIAL (J1940) IV (21:39)
[2017-08-17] MEDS: HEPARIN SOD (PORCINE) 5000 UNITS/ML VIAL SC (21:40)
[2017-08-17] MEDS: HumaLOG INSULIN (NovoLOG) PER UNIT SC (21:50)
[2017-08-17] MEDS: CEFTAROLINE FOSAMIL 200 MG in D5W 50 ML IV (22:24)
[2017-08-17] MEDS: SENNA 8.6 MG TAB (SENOKOT) PO (22:48)
[2017-08-17] MEDS: traMADol 50 MG TAB PO (22:48)
[2017-08-18] MEDS: CYCLOBENZAPRINE 10 MG TAB PO (00:25)
[2017-08-18] MEDS: NORCO, ANEXSIA 5/325MG TABLET (HYDROcodone/ACETAMINOPHEN) PO ×4 (01:24→20:34)
[2017-08-18 02:37] LABS: BEDSIDE GLUCOSE 140 MG/DL (70-105)
[2017-08-18 02:37] LABS: BEDSIDE GLUCOSE 178 MG/DL (70-105)
[2017-08-18] MEDS: HEPARIN SOD (PORCINE) 5000 UNITS/ML VIAL SC ×3 (05:34→20:32)
[2017-08-18 05:44] LABS: HEMATOCRIT 25.8 % (36.0-47.0); HEMOGLOBIN 7.9 g/dl (12.0-15.5); MEAN CORPUSCULAR HEMOGLOBIN 26.9 pg (27.0-33.0); MEAN CORPUSCULAR HGB CONC 30.6 g/dl (32.0-36.5); MEAN CORPUSCULAR VOLUME 87.8 fl (80.0-96.0); PLATELET COUNT, AUTOMATED 430 10^3/uL (150-450); RED BLOOD COUNT 2.94 10^6/uL (4.00-5.40); RED CELL DISTRIBUTION WIDTH 17.3 % (11.5-14.5); WHITE BLOOD COUNT 8.1 10^3/uL (4.0-10.0)
[2017-08-18 06:12] LABS: ANION GAP 7 MEQ/L (8-16); BLOOD UREA NITROGEN 41 MG/DL (7-18); CALCIUM LEVEL 7.8 MG/DL (8.5-10.1); CARBON DIOXIDE LEVEL 28 MEQ/L (21-32); CHLORIDE LEVEL 104 MEQ/L (98-107); CPK CREATINE PHOSPHOKINASE 78 U/L (26-192); GLOMERULAR FILTRATION RATE 13.1 (>51); GLUCOSE, FASTING 365 MG/DL (70-100); MB/CK RELATIVE INDEX 2.56 (< OR =4); SODIUM LEVEL 139 MEQ/L (136-145)
[2017-08-18 06:22] LABS: POTASSIUM SERUM 5.3 MEQ/L (3.5-5.1)
[2017-08-18] MEDS: ALPRAZolam 0.25 MG TAB PO ×2 (06:31→14:13)
[2017-08-18] MEDS: HumaLOG INSULIN (NovoLOG) PER UNIT SC ×4 (08:19→21:00)
[2017-08-18] MEDS: CLOPIDOGREL 75 MG TAB PO (08:20)
[2017-08-18] MEDS: ASPIRIN 81 MG ENTERIC TAB PO (08:20)
[2017-08-18] MEDS: METOPROLOL TART 50 MG TAB PO ×2 (08:20→20:33)
[2017-08-18] MEDS: SERTRALINE 100 MG TAB PO (08:21)
[2017-08-18] MEDS: amLODIPine 5 MG TAB PO (08:21)
[2017-08-18] MEDS: FAMOTIDINE 20 MG TAB PO (08:22)
[2017-08-18] MEDS ORDERED: TORSEMIDE 20 MG TAB PO (09:00)
[2017-08-18] MEDS: HEPARIN 1,000 UNITS/ML 10ML VIAL (FOR RADIOLOGY& DIALYSIS ONLY) IV (10:30)
[2017-08-18 11:14] LABS: FERRITIN 45 NG/ML (8-252); IRON (FE) 19 UG/DL (50-170); PERCENT SATURATION 6.5 % (13.2-45.0); TOTAL IRON BINDING CAPACITY 291 UG/DL (250-450)
[2017-08-18 13:36] LABS: BEDSIDE GLUCOSE 144 MG/DL (70-105)
[2017-08-18] MEDS: CEFTAROLINE FOSAMIL 200 MG in D5W 50 ML IV ×2 (13:36→22:30)
[2017-08-18 17:56] LABS: BEDSIDE GLUCOSE 123 MG/DL (70-105)
[2017-08-18 20:25] LABS: BEDSIDE GLUCOSE 184 MG/DL (70-105)
[2017-08-18] MEDS: IRON SUCROSE 100MG 5ML VIAL (J1756 PER 1MG) IV (20:32)
[2017-08-18] MEDS: ATORVASTATIN 20 MG TAB PO (20:33)
[2017-08-19] MEDS: ALPRAZolam 0.25 MG TAB PO ×3 (00:23→22:59)
[2017-08-19] MEDS: NORCO, ANEXSIA 5/325MG TABLET (HYDROcodone/ACETAMINOPHEN) PO ×4 (00:23→21:11)
[2017-08-19] MEDS: HEPARIN SOD (PORCINE) 5000 UNITS/ML VIAL SC ×3 (05:27→21:11)
[2017-08-19 05:36] LABS: HEMATOCRIT 27.8 % (36.0-47.0); HEMOGLOBIN 8.3 g/dl (12.0-15.5); MEAN CORPUSCULAR HEMOGLOBIN 26.8 pg (27.0-33.0); MEAN CORPUSCULAR HGB CONC 29.9 g/dl (32.0-36.5); MEAN CORPUSCULAR VOLUME 89.7 fl (80.0-96.0); PLATELET COUNT, AUTOMATED 416 10^3/uL (150-450); RED CELL DISTRIBUTION WIDTH 17.3 % (11.5-14.5); WHITE BLOOD COUNT 8.7 10^3/uL (4.0-10.0)
[2017-08-19 06:04] LABS: ANION GAP 5 MEQ/L (8-16); BLOOD UREA NITROGEN 29 MG/DL (7-18); CALCIUM LEVEL 7.5 MG/DL (8.5-10.1); CARBON DIOXIDE LEVEL 29 MEQ/L (21-32); CHLORIDE LEVEL 103 MEQ/L (98-107); GLOMERULAR FILTRATION RATE 19.4 (>51); GLUCOSE, FASTING 185 MG/DL (70-100); POTASSIUM SERUM 4.7 MEQ/L (3.5-5.1); SODIUM LEVEL 137 MEQ/L (136-145)
[2017-08-19] MEDS: HumaLOG INSULIN (NovoLOG) PER UNIT SC ×4 (08:15→21:00)
[2017-08-19] MEDS: SERTRALINE 100 MG TAB PO (09:03)
[2017-08-19] MEDS: FAMOTIDINE 20 MG TAB PO (09:03)
[2017-08-19] MEDS: HEPARIN 1,000 UNITS/ML 10ML VIAL (FOR RADIOLOGY& DIALYSIS ONLY) IV (10:30)
[2017-08-19] MEDS ORDERED: IRON SUCROSE 100MG 5ML VIAL (J1756 PER 1MG) IV (10:45)
[2017-08-19 13:07] LABS: BEDSIDE GLUCOSE 173 MG/DL (70-105)
[2017-08-19] MEDS: CLOPIDOGREL 75 MG TAB PO (14:40)
[2017-08-19] MEDS: METOPROLOL TART 50 MG TAB PO ×2 (14:40→21:10)
[2017-08-19] MEDS: ASPIRIN 81 MG ENTERIC TAB PO (14:40)
[2017-08-19] MEDS: amLODIPine 5 MG TAB PO (14:40)
[2017-08-19] MEDS: CEFTAROLINE FOSAMIL 200 MG in D5W 50 ML IV ×2 (15:03→21:09)
[2017-08-19 17:08] LABS: BEDSIDE GLUCOSE 184 MG/DL (70-105)
[2017-08-19] MEDS: FLUTICASONE PROP 0.05% NASAL SPRAY 16 GM (FLONASE) (18:56)
[2017-08-19 20:42] LABS: BEDSIDE GLUCOSE 83 MG/DL (70-105)
[2017-08-19 20:42] LABS: BEDSIDE GLUCOSE 55 MG/DL (70-105)
[2017-08-19] MEDS: ATORVASTATIN 20 MG TAB PO (21:09)
[2017-08-19] MEDS: CYCLOBENZAPRINE 10 MG TAB PO (21:10)
[2017-08-20] MEDS: NORCO, ANEXSIA 5/325MG TABLET (HYDROcodone/ACETAMINOPHEN) PO ×4 (03:47→21:01)
[2017-08-20 05:11] LABS: BEDSIDE GLUCOSE 391 MG/DL (70-105)
[2017-08-20] MEDS: HEPARIN SOD (PORCINE) 5000 UNITS/ML VIAL SC ×3 (05:30→21:02)
[2017-08-20 06:06] LABS: HEMATOCRIT 25.8 % (36.0-47.0); HEMOGLOBIN 7.9 g/dl (12.0-15.5); MEAN CORPUSCULAR HEMOGLOBIN 26.7 pg (27.0-33.0); MEAN CORPUSCULAR HGB CONC 30.6 g/dl (32.0-36.5); MEAN CORPUSCULAR VOLUME 87.2 fl (80.0-96.0); PLATELET COUNT, AUTOMATED 254 10^3/uL (150-450); RED BLOOD COUNT 2.96 10^6/uL (4.00-5.40); RED CELL DISTRIBUTION WIDTH 17.2 % (11.5-14.5); WHITE BLOOD COUNT 8.3 10^3/uL (4.0-10.0)
[2017-08-20 06:27] LABS: ANION GAP 11 MEQ/L (8-16); BLOOD UREA NITROGEN 39 MG/DL (7-18); CALCIUM LEVEL 7.4 MG/DL (8.5-10.1); CARBON DIOXIDE LEVEL 23 MEQ/L (21-32); CHLORIDE LEVEL 99 MEQ/L (98-107); GLUCOSE, FASTING 357 MG/DL (70-100); MAGNESIUM LEVEL 1.8 MG/DL (1.8-2.4); SODIUM LEVEL 133 MEQ/L (136-145)
[2017-08-20 06:31] LABS: POTASSIUM SERUM 5.2 MEQ/L (3.5-5.1)
[2017-08-20] MEDS: HumaLOG INSULIN (NovoLOG) PER UNIT SC ×4 (07:30→21:00)
[2017-08-20] MEDS: FLUTICASONE PROP 0.05% NASAL SPRAY 16 GM (FLONASE) (09:00)
[2017-08-20] MEDS: METOPROLOL TART 50 MG TAB PO ×2 (09:36→21:00)
[2017-08-20] MEDS: FAMOTIDINE 20 MG TAB PO (09:36)
[2017-08-20] MEDS: SERTRALINE 100 MG TAB PO (09:36)
[2017-08-20] MEDS: ASPIRIN 81 MG ENTERIC TAB PO (09:36)
[2017-08-20] MEDS: CLOPIDOGREL 75 MG TAB PO (09:37)
[2017-08-20] MEDS: amLODIPine 5 MG TAB PO (09:37)
[2017-08-20] MEDS: ALPRAZolam 0.25 MG TAB PO ×2 (09:44→16:12)
[2017-08-20] MEDS: CEFTAROLINE FOSAMIL 200 MG in D5W 50 ML IV (10:30)
[2017-08-20 11:51] LABS: BEDSIDE GLUCOSE 400 MG/DL (70-105)
[2017-08-20] MEDS: LevoFLOXacin IV 500 MG in APPROPRIATE DILUENT 1 EA IV (13:00)
[2017-08-20 17:24] LABS: BEDSIDE GLUCOSE 221 MG/DL (70-105)
[2017-08-20] MEDS: ATORVASTATIN 20 MG TAB PO (21:00)
[2017-08-20 21:40] LABS: BEDSIDE GLUCOSE 159 MG/DL (70-105)
[2017-08-21] MEDS: ALPRAZolam 0.25 MG TAB PO ×2 (01:11→18:13)
[2017-08-21] MEDS ORDERED: METOPROLOL TART 50 MG TAB As Ordered (05:40)
[2017-08-21] MEDS ORDERED: SERTRALINE 100 MG TAB As Ordered (05:40)
[2017-08-21] MEDS ORDERED: amLODIPine 5 MG TAB As Ordered (05:40)
[2017-08-21] MEDS ORDERED: FAMOTIDINE 20 MG TAB As Ordered (05:41)
[2017-08-21] MEDS ORDERED: ASPIRIN 81 MG ENTERIC TAB As Ordered (05:42)
[2017-08-21] MEDS ORDERED: CLOPIDOGREL 75 MG TAB As Ordered (05:42)
[2017-08-21] MEDS: FAMOTIDINE 20 MG TAB PO (05:53)
[2017-08-21] MEDS: CLOPIDOGREL 75 MG TAB PO (05:55)
[2017-08-21] MEDS: ASPIRIN 81 MG ENTERIC TAB PO (05:55)
[2017-08-21] MEDS: SERTRALINE 100 MG TAB PO (05:55)
[2017-08-21] MEDS: HEPARIN SOD (PORCINE) 5000 UNITS/ML VIAL SC ×3 (05:55→20:05)
[2017-08-21] MEDS: amLODIPine 5 MG TAB PO (05:56)
[2017-08-21] MEDS: METOPROLOL TART 50 MG TAB PO ×2 (05:56→20:06)
[2017-08-21] MEDS: FLUTICASONE PROP 0.05% NASAL SPRAY 16 GM (FLONASE) (05:57)
[2017-08-21 06:28] LABS: HEMATOCRIT 27.4 % (36.0-47.0); HEMOGLOBIN 8.5 g/dl (12.0-15.5); MEAN CORPUSCULAR HEMOGLOBIN 26.6 pg (27.0-33.0); MEAN CORPUSCULAR VOLUME 85.9 fl (80.0-96.0); PLATELET COUNT, AUTOMATED 323 10^3/uL (150-450); RED BLOOD COUNT 3.19 10^6/uL (4.00-5.40); WHITE BLOOD COUNT 8.1 10^3/uL (4.0-10.0)
[2017-08-21 06:51] LABS: ANION GAP 10 MEQ/L (8-16); BLOOD UREA NITROGEN 53 MG/DL (7-18); CALCIUM LEVEL 7.9 MG/DL (8.5-10.1); CARBON DIOXIDE LEVEL 23 MEQ/L (21-32); CHLORIDE LEVEL 98 MEQ/L (98-107); CREATININE FOR GFR 3.75 MG/DL (0.55-1.30); GLOMERULAR FILTRATION RATE 13.3 (>51); GLUCOSE, FASTING 285 MG/DL (70-100); MAGNESIUM LEVEL 1.9 MG/DL (1.8-2.4); SODIUM LEVEL 131 MEQ/L (136-145)
[2017-08-21 07:00] LABS: POTASSIUM SERUM 5.2 MEQ/L (3.5-5.1)
[2017-08-21] MEDS: HumaLOG INSULIN (NovoLOG) PER UNIT SC ×4 (07:54→20:05)
[2017-08-21] MEDS: HEPARIN 1,000 UNITS/ML 10ML VIAL (FOR RADIOLOGY& DIALYSIS ONLY) IV (11:00)
[2017-08-21] MEDS: HEPARIN 1,000 UNITS/ML 10ML VIAL (FOR RADIOLOGY& DIALYSIS ONLY) XX (11:00)
[2017-08-21 12:34] LABS: BEDSIDE GLUCOSE 143 MG/DL (70-105)
[2017-08-21] MEDS: NORCO, ANEXSIA 5/325MG TABLET (HYDROcodone/ACETAMINOPHEN) PO ×2 (13:01→20:07)
[2017-08-21 16:41] LABS: BEDSIDE GLUCOSE 347 MG/DL (70-105)
[2017-08-21] MEDS: SENNA 8.6 MG TAB (SENOKOT) PO (18:13)
[2017-08-21] MEDS ORDERED: HEPARIN SOD (PORCINE) 5000 UNITS/ML VIAL As Ordered (19:44)
[2017-08-21 20:02] LABS: BEDSIDE GLUCOSE 281 MG/DL (70-105)
[2017-08-21] MEDS: ATORVASTATIN 20 MG TAB PO (20:05)
[2017-08-22] MEDS: NORCO, ANEXSIA 5/325MG TABLET (HYDROcodone/ACETAMINOPHEN) PO ×3 (01:05→13:08)
[2017-08-22] MEDS: LevoFLOXacin IV 250 MG in APPROPRIATE DILUENT 1 EA IV (05:39)
[2017-08-22] MEDS: HEPARIN SOD (PORCINE) 5000 UNITS/ML VIAL SC ×2 (05:39→13:16)
[2017-08-22 06:44] LABS: HEMATOCRIT 26.6 % (36.0-47.0); HEMOGLOBIN 8.2 g/dl (12.0-15.5); MEAN CORPUSCULAR HEMOGLOBIN 26.5 pg (27.0-33.0); MEAN CORPUSCULAR HGB CONC 30.8 g/dl (32.0-36.5); MEAN CORPUSCULAR VOLUME 85.8 fl (80.0-96.0); PLATELET COUNT, AUTOMATED 248 10^3/uL (150-450); RED CELL DISTRIBUTION WIDTH 17.3 % (11.5-14.5); WHITE BLOOD COUNT 6.7 10^3/uL (4.0-10.0)
[2017-08-22 06:58] LABS: ANION GAP 12 MEQ/L (8-16); BLOOD UREA NITROGEN 42 MG/DL (7-18); CALCIUM LEVEL 7.3 MG/DL (8.5-10.1); CARBON DIOXIDE LEVEL 23 MEQ/L (21-32); CHLORIDE LEVEL 100 MEQ/L (98-107); CREATININE FOR GFR 3.21 MG/DL (0.55-1.30); GLOMERULAR FILTRATION RATE 15.9 (>51); GLUCOSE, FASTING 316 MG/DL (70-100); MAGNESIUM LEVEL 1.9 MG/DL (1.8-2.4); POTASSIUM SERUM 4.8 MEQ/L (3.5-5.1); SODIUM LEVEL 135 MEQ/L (136-145)
[2017-08-22 08:01] LABS: C REACTIVE PROTEIN QUANTITATIV 5.29 MG/DL (0.00-0.30)
[2017-08-22] MEDS: HumaLOG INSULIN (NovoLOG) PER UNIT SC ×2 (08:47→13:17)
[2017-08-22] MEDS: LEVEMIR (INSULIN DETEMIR) 1 UNITS/0.01ML SC (08:47)
[2017-08-22 13:07] LABS: BEDSIDE GLUCOSE 301 MG/DL (70-105)
[2017-08-22] MEDS: CLOPIDOGREL 75 MG TAB PO (13:07)
[2017-08-22] MEDS: ASPIRIN 81 MG ENTERIC TAB PO (13:07)
[2017-08-22] MEDS: FAMOTIDINE 20 MG TAB PO (13:08)
[2017-08-22] MEDS: SERTRALINE 100 MG TAB PO (13:08)
[2017-08-22] MEDS: LACTOBACILLUS ACIDOPHILUS CAP (BACID) PO (13:08)
[2017-08-22] MEDS: ALPRAZolam 0.25 MG TAB PO (13:08)
[2017-08-22] MEDS: METOPROLOL TART 50 MG TAB PO (13:09)
[2017-08-22] MEDS: amLODIPine 5 MG TAB PO (13:09)
[2017-08-22] MEDS: FLUTICASONE PROP 0.05% NASAL SPRAY 16 GM (FLONASE) (13:10)
[2017-08-22] MEDS: HEPARIN 1,000 UNITS/ML 10ML VIAL (FOR RADIOLOGY& DIALYSIS ONLY) IV (13:18)
== END 2017-08-22 15:50 | disposition short-term general hospital (02) | DRG 862 ==
LOC: M MS5PR 08-18 00:07 → M ED 13:55 → M ED INP 19:34
DX: T81.4XXA Infection following a procedure, initial encounter (principal); N18.6 End stage renal disease; I13.0 Hypertensive heart and chronic kidney disease with heart failure and stage 1 through stage 4 chronic kidney disease, or unspecified chronic kidney disease; I50.22 Chronic systolic (congestive) heart failure; I70.261 Atherosclerosis of native arteries of extremities with gangrene, right leg; L03.314 Cellulitis of groin; E87.70 Fluid overload, unspecified; R06.03 Acute respiratory distress; E11.21 Type 2 diabetes mellitus with diabetic nephropathy; F41.9 Anxiety disorder, unspecified; I25.2 Old myocardial infarction; Z95.2 Presence of prosthetic heart valve; J44.9 Chronic obstructive pulmonary disease, unspecified; Z79.899 Other long term (current) drug therapy; Z79.82 Long term (current) use of aspirin; Z79.4 Long term (current) use of insulin; I25.10 Atherosclerotic heart disease of native coronary artery without angina pectoris; Z87.891 Personal history of nicotine dependence; B96.1 Klebsiella pneumoniae [K. pneumoniae] as the cause of diseases classified elsewhere; B95.5 Unspecified streptococcus as the cause of diseases classified elsewhere; B97.19 Other enterovirus as the cause of diseases classified elsewhere; D63.1 Anemia in chronic kidney disease; Z88.5 Allergy status to narcotic agent; Z91.041 Radiographic dye allergy status; Z91.19 Patient's noncompliance with other medical treatment and regimen; E87.5 Hyperkalemia; Y83.8 Other surgical procedures as the cause of abnormal reaction of the patient, or of later complication, without mention of misadventure at the time of the procedure

== ENCOUNTER 2017-09-09 12:07 | Inpatient (IN) | payer MEDICARE ==
[2017-09-09 12:42] LABS: BASO # 0.2 10^3/uL (0.0-0.2); BASO % 1.9 % (0.0-1.0); EOS % 0.4 % (0.0-3.0); HEMATOCRIT 31.8 % (36.0-47.0); HEMOGLOBIN 9.6 g/dl (12.0-15.5); IMMATURE GRANULOCYTE % 0.5 % (0-3.0); LYMPH # 1.2 10^3/uL (1.5-4.5); LYMPH % 14.4 % (24.0-44.0); MEAN CORPUSCULAR HEMOGLOBIN 26.3 pg (27.0-33.0); MEAN CORPUSCULAR HGB CONC 30.2 g/dl (32.0-36.5); MEAN CORPUSCULAR VOLUME 87.1 fl (80.0-96.0); MONO # 0.5 10^3/uL (0.0-0.8); MONO % 5.6 % (0.0-5.0); NEUTROPHILS # 6.2 10^3/uL (1.8-7.7); NEUTROPHILS % 77.2 % (36.0-66.0); PLATELET COUNT, AUTOMATED 609 10^3/uL (150-450); RED BLOOD COUNT 3.65 10^6/uL (4.00-5.40); RED CELL DISTRIBUTION WIDTH 18.9 % (11.5-14.5)
[2017-09-09 12:52] LABS: ALBUMIN 2.4 GM/DL (3.2-5.2); ALBUMIN/GLOBULIN RATIO 0.52 (1.00-1.93); ALKALINE PHOSPHATASE 432 U/L (45-117); ALT/SGPT 60 U/L (12-78); ANION GAP 9 MEQ/L (8-16); AST/SGOT 77 U/L (7-37); BILIRUBIN,DIRECT 0.2 MG/DL (0.0-0.2); BILIRUBIN,TOTAL 0.4 MG/DL (0.2-1.0); BLOOD UREA NITROGEN 46 MG/DL (7-18); CALCIUM LEVEL 8.6 MG/DL (8.5-10.1); CARBON DIOXIDE LEVEL 23 MEQ/L (21-32); CHLORIDE LEVEL 106 MEQ/L (98-107); CREATININE FOR GFR 5.01 MG/DL (0.55-1.30); GLOMERULAR FILTRATION RATE 9.5 (>51); GLUCOSE, FASTING 107 MG/DL (70-100); LIPASE 43 U/L (73-393); SODIUM LEVEL 138 MEQ/L (136-145)
[2017-09-09 13:02] LABS: POTASSIUM SERUM 7.7 MEQ/L (3.5-5.1)
[2017-09-09] MEDS: IPRATROPIUM 0.5MG/ALBUTEROL 2.5MG INH SOL UD 3ML (DUONEB)(J7620) NEB ×2 (13:15→20:00)
[2017-09-09] MEDS: ALBUTEROL SULFATE 2.5 MG/0.5 ML INH NEB SOLN INH (13:16)
[2017-09-09] MEDS: DEXTROSE 50% 50 ML SYRINGE IV (13:20)
[2017-09-09] MEDS: HumuLIN R (REGULAR) INSULIN (NovoLIN R) **100U/ML** PER UNIT IV (13:20)
[2017-09-09] MEDS: SOD POLYSTYRENE SULFONATE SUSP 15 GM/60 ML UD PO (13:23)
[2017-09-09 13:34] LABS: TROPONIN I 0.06 NG/ML (< 0.10)
[2017-09-09] MEDS: LORazepam 2 MG/ML VIAL (J2060) IV (13:35)
[2017-09-09 13:38] LABS: ABG BASE EXCESS -4.7 (-2.0-2.0); ABG HCO3 19.6 MEQ/L (22.0-26.0); ABG O2 SATURATION 96.4 % (95.0-99.0); ABG PARTIAL PRESSURE O2 91.2 mmHg (75.0-100.0); ABG STANDARD HCO3 20.6 MEQ/L (22.0-26.0); ABG TOTAL CO2 20.6 MEQ/L (22.0-29.0); ABG pH (ARTERIAL) 7.391 UNITS (7.350-7.450); CK-MB VALUE MASS 4.1 NG/ML (<3.6); CPK CREATINE PHOSPHOKINASE 141 U/L (26-192)
[2017-09-09] MEDS: NS 500 ML IV (14:15)
[2017-09-09] MEDS ORDERED: DEXTROSE 50% 50 ML SYRINGE IV (15:00)
[2017-09-09] MEDS ORDERED: GLUCOSE 4 GM CHEW TABLET PO (15:00)
[2017-09-09] MEDS ORDERED: GLUCAGON FOR INJ 1 MG VIAL (J1610) SC (15:00)
[2017-09-09] MEDS ORDERED: ONDANSETRON 4MG/2ML VIAL (J2405) IV (15:00)
[2017-09-09] MEDS ORDERED: NITROGLYCERIN 0.4 MG SUBL TABLET SL (16:00)
[2017-09-09] MEDS ORDERED: IPRATROPIUM 0.5MG/ALBUTEROL 2.5MG INH SOL UD 3ML (DUONEB)(J7620) NEB (16:00)
[2017-09-09] MEDS: HumaLOG INSULIN (NovoLOG) PER UNIT SC ×2 (17:30→20:49)
[2017-09-09 20:13] LABS: POTASSIUM SERUM 4.9 MEQ/L (3.5-5.1)
[2017-09-09 20:47] LABS: BEDSIDE GLUCOSE 101 MG/DL (70-105)
[2017-09-09] MEDS: FAMOTIDINE 20 MG TAB PO (21:30)
[2017-09-09] MEDS: SERTRALINE 100 MG TAB PO (21:31)
[2017-09-09] MEDS: ATORVASTATIN 20 MG TAB PO (21:31)
[2017-09-09] MEDS: ASPIRIN 81 MG ENTERIC TAB PO (21:31)
[2017-09-09] MEDS: amLODIPine 5 MG TAB PO (21:31)
[2017-09-09] MEDS: CLOPIDOGREL 75 MG TAB PO (21:31)
[2017-09-09] MEDS: METOPROLOL TART 50 MG TAB PO (21:31)
[2017-09-09] MEDS: HEPARIN SOD (PORCINE) 5000 UNITS/ML VIAL SQ (21:32)
[2017-09-09] MEDS: CALCIUM GLUCONATE 1,000 MG in D5W MINI-BAG PLUS 100 ML IV (21:32)
[2017-09-09] MEDS: ACETAMINOPHEN TAB 650MG DOSE (2X325MG) PO (21:33)
[2017-09-10] MEDS: IPRATROPIUM 0.5MG/ALBUTEROL 2.5MG INH SOL UD 3ML (DUONEB)(J7620) NEB ×4 (01:29→20:20)
[2017-09-10] MEDS: NORCO, ANEXSIA 5/325MG TABLET (HYDROcodone/ACETAMINOPHEN) PO ×3 (04:23→18:11)
[2017-09-10 04:41] LABS: HEMATOCRIT 27.7 % (36.0-47.0); HEMOGLOBIN 8.5 g/dl (12.0-15.5); MEAN CORPUSCULAR HEMOGLOBIN 26.1 pg (27.0-33.0); MEAN CORPUSCULAR HGB CONC 30.7 g/dl (32.0-36.5); PLATELET COUNT, AUTOMATED 527 10^3/uL (150-450); RED BLOOD COUNT 3.26 10^6/uL (4.00-5.40); RED CELL DISTRIBUTION WIDTH 18.7 % (11.5-14.5); WHITE BLOOD COUNT 6.9 10^3/uL (4.0-10.0)
[2017-09-10 04:55] LABS: ALBUMIN 1.9 GM/DL (3.2-5.2); ALKALINE PHOSPHATASE 332 U/L (45-117); ALT/SGPT 55 U/L (12-78); ANION GAP 10 MEQ/L (8-16); AST/SGOT 71 U/L (7-37); BILIRUBIN,TOTAL 0.3 MG/DL (0.2-1.0); BLOOD UREA NITROGEN 30 MG/DL (7-18); CALCIUM LEVEL 7.6 MG/DL (8.5-10.1); CARBON DIOXIDE LEVEL 22 MEQ/L (21-32); CHLORIDE LEVEL 107 MEQ/L (98-107); CREATININE FOR GFR 3.65 MG/DL (0.55-1.30); GLOMERULAR FILTRATION RATE 13.7 (>51); GLUCOSE, FASTING 291 MG/DL (70-100); MAGNESIUM LEVEL 1.8 MG/DL (1.8-2.4); SODIUM LEVEL 139 MEQ/L (136-145); TOTAL PROTEIN 5.7 GM/DL (6.4-8.2)
[2017-09-10 05:16] LABS: POTASSIUM SERUM 5.4 MEQ/L (3.5-5.1)
[2017-09-10] MEDS: HEPARIN SOD (PORCINE) 5000 UNITS/ML VIAL SQ ×3 (05:52→21:05)
[2017-09-10] MEDS: HumaLOG INSULIN (NovoLOG) PER UNIT SC ×4 (08:13→21:00)
[2017-09-10] MEDS: FAMOTIDINE 20 MG TAB PO (08:14)
[2017-09-10] MEDS: SERTRALINE 100 MG TAB PO (08:14)
[2017-09-10] MEDS: CLOPIDOGREL 75 MG TAB PO (08:14)
[2017-09-10] MEDS: ASPIRIN 81 MG ENTERIC TAB PO (08:14)
[2017-09-10] MEDS: amLODIPine 5 MG TAB PO (08:14)
[2017-09-10] MEDS: ALPRAZolam 0.5 MG TAB PO ×2 (08:14→20:01)
[2017-09-10] MEDS: METOPROLOL TART 50 MG TAB PO ×2 (08:14→21:06)
[2017-09-10 11:53] LABS: BEDSIDE GLUCOSE 374 MG/DL (70-105)
[2017-09-10 15:24] LABS: FERRITIN 209 NG/ML (8-252); IRON (FE) 30 UG/DL (50-170); PERCENT SATURATION 10.3 % (13.2-45.0); TOTAL IRON BINDING CAPACITY 290 UG/DL (250-450)
[2017-09-10 16:56] LABS: BEDSIDE GLUCOSE 280 MG/DL (70-105)
[2017-09-10 20:57] LABS: BEDSIDE GLUCOSE 218 MG/DL (70-105)
[2017-09-10] MEDS: LEVEMIR (INSULIN DETEMIR) 1 UNITS/0.01ML SC (21:06)
[2017-09-10] MEDS: ATORVASTATIN 20 MG TAB PO (21:06)
[2017-09-11] MEDS: NORCO, ANEXSIA 5/325MG TABLET (HYDROcodone/ACETAMINOPHEN) PO ×3 (00:21→23:30)
[2017-09-11] MEDS: IPRATROPIUM 0.5MG/ALBUTEROL 2.5MG INH SOL UD 3ML (DUONEB)(J7620) NEB ×4 (00:39→20:38)
[2017-09-11] MEDS ORDERED: IRON SUCROSE 100MG 5ML VIAL (J1756 PER 1MG) IV (04:15)
[2017-09-11] MEDS ORDERED: DARBEPOETIN 100 MCG/0.5 ML *DIALYSIS* SYRINGE (J0882) IV (04:15)
[2017-09-11 05:01] LABS: HEMATOCRIT 28.5 % (36.0-47.0); HEMOGLOBIN 8.7 g/dl (12.0-15.5); MEAN CORPUSCULAR HEMOGLOBIN 26.3 pg (27.0-33.0); MEAN CORPUSCULAR HGB CONC 30.5 g/dl (32.0-36.5); MEAN CORPUSCULAR VOLUME 86.1 fl (80.0-96.0); PLATELET COUNT, AUTOMATED 503 10^3/uL (150-450); RED BLOOD COUNT 3.31 10^6/uL (4.00-5.40); RED CELL DISTRIBUTION WIDTH 18.6 % (11.5-14.5); WHITE BLOOD COUNT 5.4 10^3/uL (4.0-10.0)
[2017-09-11 05:21] LABS: ALBUMIN 1.9 GM/DL (3.2-5.2); ALBUMIN/GLOBULIN RATIO 0.53 (1.00-1.93); ALKALINE PHOSPHATASE 304 U/L (45-117); ALT/SGPT 42 U/L (12-78); ANION GAP 9 MEQ/L (8-16); AST/SGOT 30 U/L (7-37); BILIRUBIN,TOTAL 0.2 MG/DL (0.2-1.0); BLOOD UREA NITROGEN 40 MG/DL (7-18); CALCIUM LEVEL 7.2 MG/DL (8.5-10.1); CARBON DIOXIDE LEVEL 24 MEQ/L (21-32); CHLORIDE LEVEL 106 MEQ/L (98-107); CREATININE FOR GFR 4.28 MG/DL (0.55-1.30); GLOMERULAR FILTRATION RATE 11.4 (>51); GLUCOSE, FASTING 165 MG/DL (70-100); MAGNESIUM LEVEL 1.8 MG/DL (1.8-2.4); POTASSIUM SERUM 5.1 MEQ/L (3.5-5.1); SODIUM LEVEL 139 MEQ/L (136-145); TOTAL PROTEIN 5.5 GM/DL (6.4-8.2)
[2017-09-11] MEDS: HEPARIN SOD (PORCINE) 5000 UNITS/ML VIAL SQ ×3 (05:25→21:10)
[2017-09-11] MEDS: HumaLOG INSULIN (NovoLOG) PER UNIT SC ×4 (08:46→20:57)
[2017-09-11] MEDS: LEVEMIR (INSULIN DETEMIR) 1 UNITS/0.01ML SC ×2 (08:46→21:00)
[2017-09-11] MEDS: CLOPIDOGREL 75 MG TAB PO (08:47)
[2017-09-11] MEDS: ASPIRIN 81 MG ENTERIC TAB PO (08:47)
[2017-09-11] MEDS: FAMOTIDINE 20 MG TAB PO (08:47)
[2017-09-11] MEDS: SERTRALINE 100 MG TAB PO (08:47)
[2017-09-11] MEDS: METOPROLOL TART 50 MG TAB PO ×2 (08:47→21:10)
[2017-09-11] MEDS: amLODIPine 5 MG TAB PO (08:48)
[2017-09-11] MEDS: HEPARIN 1,000 UNITS/ML 10ML VIAL (FOR RADIOLOGY& DIALYSIS ONLY) IV (12:00)
[2017-09-11] MEDS: HEPARIN 1,000 UNITS/ML 10ML VIAL (FOR RADIOLOGY& DIALYSIS ONLY) XX (12:00)
[2017-09-11 13:49] LABS: BEDSIDE GLUCOSE 70 MG/DL (70-105)
[2017-09-11] MEDS: ALPRAZolam 0.5 MG TAB PO (14:01)
[2017-09-11] MEDS: SENNA 8.6 MG TAB (SENOKOT) PO (14:01)
[2017-09-11 17:09] LABS: BEDSIDE GLUCOSE 137 MG/DL (70-105)
[2017-09-11 20:39] LABS: BEDSIDE GLUCOSE 129 MG/DL (70-105)
[2017-09-11] MEDS: ATORVASTATIN 20 MG TAB PO (21:10)
[2017-09-12] MEDS: HEPARIN SOD (PORCINE) 5000 UNITS/ML VIAL SQ ×3 (05:51→21:36)
[2017-09-12 05:56] LABS: HEMOGLOBIN 8.7 g/dl (12.0-15.5); MEAN CORPUSCULAR VOLUME 86.6 fl (80.0-96.0); PLATELET COUNT, AUTOMATED 477 10^3/uL (150-450); RED BLOOD COUNT 3.35 10^6/uL (4.00-5.40); RED CELL DISTRIBUTION WIDTH 18.8 % (11.5-14.5); WHITE BLOOD COUNT 6.3 10^3/uL (4.0-10.0)
[2017-09-12 06:25] LABS: ALBUMIN 1.8 GM/DL (3.2-5.2); ALBUMIN/GLOBULIN RATIO 0.47 (1.00-1.93); ALKALINE PHOSPHATASE 280 U/L (45-117); ALT/SGPT 35 U/L (12-78); ANION GAP 10 MEQ/L (8-16); AST/SGOT 26 U/L (7-37); BILIRUBIN,TOTAL 0.2 MG/DL (0.2-1.0); BLOOD UREA NITROGEN 29 MG/DL (7-18); CALCIUM LEVEL 6.9 MG/DL (8.5-10.1); CARBON DIOXIDE LEVEL 24 MEQ/L (21-32); CHLORIDE LEVEL 102 MEQ/L (98-107); CREATININE FOR GFR 3.23 MG/DL (0.55-1.30); GLOMERULAR FILTRATION RATE 15.8 (>51); GLUCOSE, FASTING 337 MG/DL (70-100); MAGNESIUM LEVEL 1.7 MG/DL (1.8-2.4); POTASSIUM SERUM 4.9 MEQ/L (3.5-5.1); SODIUM LEVEL 136 MEQ/L (136-145); TOTAL PROTEIN 5.6 GM/DL (6.4-8.2)
[2017-09-12] MEDS: IPRATROPIUM 0.5MG/ALBUTEROL 2.5MG INH SOL UD 3ML (DUONEB)(J7620) NEB ×3 (07:39→20:00)
[2017-09-12 08:03] LABS: PTH INTACT 515.5 PG/ML (18.5-88.0)
[2017-09-12] MEDS: HumaLOG INSULIN (NovoLOG) PER UNIT SC ×4 (09:34→21:00)
[2017-09-12] MEDS: SENNA 8.6 MG TAB (SENOKOT) PO (09:35)
[2017-09-12] MEDS: LEVEMIR (INSULIN DETEMIR) 1 UNITS/0.01ML SC ×2 (09:35→21:35)
[2017-09-12] MEDS: ALPRAZolam 0.5 MG TAB PO (09:35)
[2017-09-12] MEDS: ASPIRIN 81 MG ENTERIC TAB PO (09:36)
[2017-09-12] MEDS: SERTRALINE 100 MG TAB PO (09:37)
[2017-09-12] MEDS: FAMOTIDINE 20 MG TAB PO (09:37)
[2017-09-12] MEDS: CLOPIDOGREL 75 MG TAB PO (09:37)
[2017-09-12] MEDS: NORCO, ANEXSIA 5/325MG TABLET (HYDROcodone/ACETAMINOPHEN) PO (09:37)
[2017-09-12] MEDS: amLODIPine 5 MG TAB PO (09:39)
[2017-09-12] MEDS: METOPROLOL TART 50 MG TAB PO ×2 (09:39→21:37)
[2017-09-12 12:07] LABS: BEDSIDE GLUCOSE 411 MG/DL (70-105)
[2017-09-12] MEDS: CALCITRIOL 0.25 MCG CAP (S0169) PO (13:47)
[2017-09-12 16:51] LABS: BEDSIDE GLUCOSE 243 MG/DL (70-105)
[2017-09-12 20:54] LABS: BEDSIDE GLUCOSE 124 MG/DL (70-105)
[2017-09-12] MEDS: ATORVASTATIN 20 MG TAB PO (21:36)
[2017-09-13] MEDS: NORCO, ANEXSIA 5/325MG TABLET (HYDROcodone/ACETAMINOPHEN) PO ×3 (00:33→14:11)
[2017-09-13] MEDS: IPRATROPIUM 0.5MG/ALBUTEROL 2.5MG INH SOL UD 3ML (DUONEB)(J7620) NEB ×4 (03:59→20:47)
[2017-09-13] MEDS: HEPARIN SOD (PORCINE) 5000 UNITS/ML VIAL SQ ×3 (05:52→21:20)
[2017-09-13 05:59] LABS: HEMATOCRIT 31.3 % (36.0-47.0); HEMOGLOBIN 9.4 g/dl (12.0-15.5); MEAN CORPUSCULAR HEMOGLOBIN 26.3 pg (27.0-33.0); MEAN CORPUSCULAR VOLUME 87.7 fl (80.0-96.0); PLATELET COUNT, AUTOMATED 503 10^3/uL (150-450); RED BLOOD COUNT 3.57 10^6/uL (4.00-5.40); RED CELL DISTRIBUTION WIDTH 18.8 % (11.5-14.5); WHITE BLOOD COUNT 7.2 10^3/uL (4.0-10.0)
[2017-09-13 06:19] LABS: PHOSPHORUS LEVEL 6.1 MG/DL (2.5-4.9)
[2017-09-13] MEDS ORDERED: HEPARIN 1,000 UNITS/ML 10ML VIAL (FOR RADIOLOGY& DIALYSIS ONLY) As Ordered (06:19)
[2017-09-13] MEDS ORDERED: LIDOCAINE 2% MDV 20 ML VIAL As Ordered (06:19)
[2017-09-13 06:28] LABS: ALBUMIN 2.2 GM/DL (3.2-5.2); ALBUMIN/GLOBULIN RATIO 0.58 (1.00-1.93); ALKALINE PHOSPHATASE 289 U/L (45-117); ALT/SGPT 36 U/L (12-78); ANION GAP 10 MEQ/L (8-16); AST/SGOT 25 U/L (7-37); BILIRUBIN,TOTAL 0.2 MG/DL (0.2-1.0); BLOOD UREA NITROGEN 34 MG/DL (7-18); CALCIUM LEVEL 7.4 MG/DL (8.5-10.1); CARBON DIOXIDE LEVEL 26 MEQ/L (21-32); CHLORIDE LEVEL 104 MEQ/L (98-107); CREATININE FOR GFR 3.75 MG/DL (0.55-1.30); GLOMERULAR FILTRATION RATE 13.3 (>51); GLUCOSE, FASTING 61 MG/DL (70-100); MAGNESIUM LEVEL 1.8 MG/DL (1.8-2.4); POTASSIUM SERUM 5.1 MEQ/L (3.5-5.1); SODIUM LEVEL 140 MEQ/L (136-145)
[2017-09-13] MEDS: ALPRAZolam 0.5 MG TAB PO ×2 (06:33→19:28)
[2017-09-13] MEDS: HumaLOG INSULIN (NovoLOG) PER UNIT SC ×4 (07:56→21:00)
[2017-09-13] MEDS: ACETAMINOPHEN TAB 650MG DOSE (2X325MG) PO (09:46)
[2017-09-13] MEDS: LEVEMIR (INSULIN DETEMIR) 1 UNITS/0.01ML SC ×2 (12:15→21:00)
[2017-09-13] MEDS ORDERED: SLF 3 ML SYR IV (12:30)
[2017-09-13 13:56] LABS: BEDSIDE GLUCOSE 283 MG/DL (70-105)
[2017-09-13] MEDS: ASPIRIN 81 MG ENTERIC TAB PO (14:11)
[2017-09-13] MEDS: CALCITRIOL 0.25 MCG CAP (S0169) PO (14:11)
[2017-09-13] MEDS: FAMOTIDINE 20 MG TAB PO (14:11)
[2017-09-13] MEDS: SERTRALINE 100 MG TAB PO (14:11)
[2017-09-13] MEDS: CALCIUM ACETATE 667 MG GELCAP PO ×2 (14:12→17:52)
[2017-09-13] MEDS: CLOPIDOGREL 75 MG TAB PO (14:12)
[2017-09-13] MEDS: amLODIPine 5 MG TAB PO (14:13)
[2017-09-13] MEDS: METOPROLOL TART 50 MG TAB PO ×2 (14:13→21:20)
[2017-09-13] MEDS: SLF 3 ML SYR IV ×2 (14:13→21:21)
[2017-09-13] MEDS: HEPARIN 1,000 UNITS/ML 10ML VIAL (FOR RADIOLOGY& DIALYSIS ONLY) IV (14:15)
[2017-09-13] MEDS: HEPARIN 1,000 UNITS/ML 10ML VIAL (FOR RADIOLOGY& DIALYSIS ONLY) XX (14:15)
[2017-09-13 17:03] LABS: BEDSIDE GLUCOSE 260 MG/DL (70-105)
[2017-09-13] MEDS: SENNA 8.6 MG TAB (SENOKOT) PO (19:28)
[2017-09-13 20:40] LABS: BEDSIDE GLUCOSE 73 MG/DL (70-105)
[2017-09-13] MEDS: ATORVASTATIN 20 MG TAB PO (21:20)
[2017-09-14] MEDS: IPRATROPIUM 0.5MG/ALBUTEROL 2.5MG INH SOL UD 3ML (DUONEB)(J7620) NEB ×4 (01:42→20:38)
[2017-09-14] MEDS: HEPARIN SOD (PORCINE) 5000 UNITS/ML VIAL SQ ×3 (05:38→21:45)
[2017-09-14] MEDS: SLF 3 ML SYR IV ×2 (05:39→14:57)
[2017-09-14] MEDS: ALPRAZolam 0.5 MG TAB PO ×2 (07:47→23:40)
[2017-09-14] MEDS: NORCO, ANEXSIA 5/325MG TABLET (HYDROcodone/ACETAMINOPHEN) PO (07:48)
[2017-09-14 07:51] LABS: HEMATOCRIT 31.6 % (36.0-47.0); HEMOGLOBIN 9.1 g/dl (12.0-15.5); MEAN CORPUSCULAR HEMOGLOBIN 25.7 pg (27.0-33.0); MEAN CORPUSCULAR HGB CONC 28.8 g/dl (32.0-36.5); MEAN CORPUSCULAR VOLUME 89.3 fl (80.0-96.0); PLATELET COUNT, AUTOMATED 417 10^3/uL (150-450); RED BLOOD COUNT 3.54 10^6/uL (4.00-5.40); RED CELL DISTRIBUTION WIDTH 19.6 % (11.5-14.5)
[2017-09-14 07:57] LABS: BEDSIDE GLUCOSE 466 MG/DL (70-105)
[2017-09-14] MEDS: FAMOTIDINE 20 MG TAB PO (08:14)
[2017-09-14] MEDS: HumaLOG INSULIN (NovoLOG) PER UNIT SC ×4 (08:14→20:28)
[2017-09-14] MEDS: diphenhydrAMINE CREAM 30GM TOP ×2 (08:15→23:37)
[2017-09-14] MEDS: CALCIUM ACETATE 667 MG GELCAP PO ×3 (08:15→17:41)
[2017-09-14] MEDS: LEVEMIR (INSULIN DETEMIR) 1 UNITS/0.01ML SC ×2 (08:15→21:00)
[2017-09-14] MEDS: ASPIRIN 81 MG ENTERIC TAB PO (08:16)
[2017-09-14] MEDS: amLODIPine 5 MG TAB PO (08:16)
[2017-09-14] MEDS: SERTRALINE 100 MG TAB PO (08:16)
[2017-09-14] MEDS: CLOPIDOGREL 75 MG TAB PO (08:16)
[2017-09-14] MEDS: CALCITRIOL 0.25 MCG CAP (S0169) PO (08:16)
[2017-09-14] MEDS: METOPROLOL TART 50 MG TAB PO ×2 (08:18→21:42)
[2017-09-14 08:21] LABS: ALBUMIN 2.2 GM/DL (3.2-5.2); ALBUMIN/GLOBULIN RATIO 0.51 (1.00-1.93); ALKALINE PHOSPHATASE 272 U/L (45-117); ALT/SGPT 30 U/L (12-78); ANION GAP 11 MEQ/L (8-16); AST/SGOT 20 U/L (7-37); BILIRUBIN,TOTAL 0.3 MG/DL (0.2-1.0); BLOOD UREA NITROGEN 23 MG/DL (7-18); CALCIUM LEVEL 7.6 MG/DL (8.5-10.1); CARBON DIOXIDE LEVEL 24 MEQ/L (21-32); CHLORIDE LEVEL 101 MEQ/L (98-107); CREATININE FOR GFR 2.79 MG/DL (0.55-1.30); GLOMERULAR FILTRATION RATE 18.7 (>51); MAGNESIUM LEVEL 1.7 MG/DL (1.8-2.4); POTASSIUM SERUM 4.8 MEQ/L (3.5-5.1); SODIUM LEVEL 136 MEQ/L (136-145); TOTAL PROTEIN 6.5 GM/DL (6.4-8.2)
[2017-09-14 08:23] LABS: GLUCOSE, FASTING 492 MG/DL (70-100)
[2017-09-14 12:19] LABS: BEDSIDE GLUCOSE 370 MG/DL (70-105)
[2017-09-14] MEDS: ACETAMINOPHEN TAB 650MG DOSE (2X325MG) PO (14:57)
[2017-09-14 16:11] LABS: BEDSIDE GLUCOSE 208 MG/DL (70-105)
[2017-09-14 17:37] LABS: MEAN CORPUSCULAR HEMOGLOBIN 26.2 pg (27.0-33.0); MEAN CORPUSCULAR VOLUME 87.5 fl (80.0-96.0); PLATELET COUNT, AUTOMATED 411 10^3/uL (150-450); RED BLOOD COUNT 3.43 10^6/uL (4.00-5.40); RED CELL DISTRIBUTION WIDTH 19.7 % (11.5-14.5); WHITE BLOOD COUNT 6.5 10^3/uL (4.0-10.0)
[2017-09-14 18:06] LABS: ANION GAP 9 MEQ/L (8-16); BLOOD UREA NITROGEN 30 MG/DL (7-18); CALCIUM LEVEL 7.6 MG/DL (8.5-10.1); CARBON DIOXIDE LEVEL 24 MEQ/L (21-32); CHLORIDE LEVEL 106 MEQ/L (98-107); CREATININE FOR GFR 2.93 MG/DL (0.55-1.30); GLOMERULAR FILTRATION RATE 17.7 (>51); GLUCOSE, FASTING 142 MG/DL (70-100); POTASSIUM SERUM 4.2 MEQ/L (3.5-5.1); SODIUM LEVEL 139 MEQ/L (136-145)
[2017-09-14 20:23] LABS: BEDSIDE GLUCOSE 64 MG/DL (70-105)
[2017-09-14] MEDS: RAMELTEON 8 MG TAB (ROZEREM) PO (21:42)
[2017-09-14] MEDS: ATORVASTATIN 20 MG TAB PO (21:42)
[2017-09-14 22:54] LABS: BEDSIDE GLUCOSE 129 MG/DL (70-105)
[2017-09-15] MEDS: ACETAMINOPHEN TAB 650MG DOSE (2X325MG) PO (00:47)
[2017-09-15] MEDS: IPRATROPIUM 0.5MG/ALBUTEROL 2.5MG INH SOL UD 3ML (DUONEB)(J7620) NEB ×4 (01:26→20:09)
[2017-09-15] MEDS: HEPARIN SOD (PORCINE) 5000 UNITS/ML VIAL SQ ×3 (05:39→21:01)
[2017-09-15 05:48] LABS: HEMATOCRIT 27.7 % (36.0-47.0); HEMOGLOBIN 8.5 g/dl (12.0-15.5); MEAN CORPUSCULAR HEMOGLOBIN 26.6 pg (27.0-33.0); MEAN CORPUSCULAR HGB CONC 30.7 g/dl (32.0-36.5); MEAN CORPUSCULAR VOLUME 86.6 fl (80.0-96.0); PLATELET COUNT, AUTOMATED 389 10^3/uL (150-450); RED CELL DISTRIBUTION WIDTH 19.8 % (11.5-14.5); WHITE BLOOD COUNT 6.1 10^3/uL (4.0-10.0)
[2017-09-15 06:08] LABS: ALBUMIN 1.9 GM/DL (3.2-5.2); ALBUMIN/GLOBULIN RATIO 0.49 (1.00-1.93); ALKALINE PHOSPHATASE 212 U/L (45-117); ALT/SGPT 25 U/L (12-78); ANION GAP 10 MEQ/L (8-16); AST/SGOT 16 U/L (7-37); BILIRUBIN,TOTAL 0.2 MG/DL (0.2-1.0); BLOOD UREA NITROGEN 35 MG/DL (7-18); CALCIUM LEVEL 7.9 MG/DL (8.5-10.1); CARBON DIOXIDE LEVEL 22 MEQ/L (21-32); CHLORIDE LEVEL 106 MEQ/L (98-107); CREATININE FOR GFR 3.12 MG/DL (0.55-1.30); GLOMERULAR FILTRATION RATE 16.4 (>51); GLUCOSE, FASTING 146 MG/DL (70-100); MAGNESIUM LEVEL 1.7 MG/DL (1.8-2.4); POTASSIUM SERUM 4.3 MEQ/L (3.5-5.1); SODIUM LEVEL 138 MEQ/L (136-145); TOTAL PROTEIN 5.8 GM/DL (6.4-8.2)
[2017-09-15] MEDS: CALCITRIOL 0.25 MCG CAP (S0169) PO (09:09)
[2017-09-15] MEDS: HumaLOG INSULIN (NovoLOG) PER UNIT SC ×4 (09:09→21:00)
[2017-09-15] MEDS: LEVEMIR (INSULIN DETEMIR) 1 UNITS/0.01ML SC ×2 (09:09→21:00)
[2017-09-15] MEDS: METOPROLOL TART 50 MG TAB PO ×2 (09:10→20:59)
[2017-09-15] MEDS: amLODIPine 5 MG TAB PO (09:10)
[2017-09-15] MEDS: ASPIRIN 81 MG ENTERIC TAB PO (09:10)
[2017-09-15] MEDS: CLOPIDOGREL 75 MG TAB PO (09:10)
[2017-09-15] MEDS: FAMOTIDINE 20 MG TAB PO (09:10)
[2017-09-15] MEDS: CALCIUM ACETATE 667 MG GELCAP PO ×3 (09:10→18:17)
[2017-09-15] MEDS: SERTRALINE 100 MG TAB PO (09:10)
[2017-09-15] MEDS: SENNA 8.6 MG TAB (SENOKOT) PO ×2 (09:18→20:57)
[2017-09-15] MEDS: ALPRAZolam 0.5 MG TAB PO ×2 (09:18→21:11)
[2017-09-15] MEDS: NORCO, ANEXSIA 5/325MG TABLET (HYDROcodone/ACETAMINOPHEN) PO ×3 (09:19→20:59)
[2017-09-15] MEDS: HEPARIN 1,000 UNITS/ML 10ML VIAL (FOR RADIOLOGY& DIALYSIS ONLY) XX (11:00)
[2017-09-15] MEDS: HEPARIN 1,000 UNITS/ML 10ML VIAL (FOR RADIOLOGY& DIALYSIS ONLY) IV (11:00)
[2017-09-15 14:32] LABS: BEDSIDE GLUCOSE 98 MG/DL (70-105)
[2017-09-15 18:01] LABS: BEDSIDE GLUCOSE 210 MG/DL (70-105)
[2017-09-15 20:49] LABS: BEDSIDE GLUCOSE 168 MG/DL (70-105)
[2017-09-15] MEDS: ATORVASTATIN 20 MG TAB PO (20:58)
[2017-09-15] MEDS: RAMELTEON 8 MG TAB (ROZEREM) PO (21:00)
[2017-09-16] MEDS: MOM 30ML SUSPENSION UDC PO ×2 (00:46→05:32)
[2017-09-16] MEDS: IPRATROPIUM 0.5MG/ALBUTEROL 2.5MG INH SOL UD 3ML (DUONEB)(J7620) NEB ×4 (02:00→19:52)
[2017-09-16] MEDS: NORCO, ANEXSIA 5/325MG TABLET (HYDROcodone/ACETAMINOPHEN) PO (03:32)
[2017-09-16 05:22] LABS: BEDSIDE GLUCOSE 490 MG/DL (70-105)
[2017-09-16 05:29] LABS: HEMATOCRIT 30.3 % (36.0-47.0); MEAN CORPUSCULAR HGB CONC 29.7 g/dl (32.0-36.5); MEAN CORPUSCULAR VOLUME 87.6 fl (80.0-96.0); PLATELET COUNT, AUTOMATED 411 10^3/uL (150-450); RED BLOOD COUNT 3.46 10^6/uL (4.00-5.40); RED CELL DISTRIBUTION WIDTH 20.6 % (11.5-14.5); WHITE BLOOD COUNT 4.6 10^3/uL (4.0-10.0)
[2017-09-16] MEDS: CALCITRIOL 0.25 MCG CAP (S0169) PO (05:32)
[2017-09-16] MEDS: amLODIPine 5 MG TAB PO (05:33)
[2017-09-16] MEDS: SENNA 8.6 MG TAB (SENOKOT) PO (05:34)
[2017-09-16] MEDS: CLOPIDOGREL 75 MG TAB PO (05:34)
[2017-09-16] MEDS: CALCIUM ACETATE 667 MG GELCAP PO ×3 (05:34→18:20)
[2017-09-16] MEDS: ASPIRIN 81 MG ENTERIC TAB PO (05:34)
[2017-09-16] MEDS: FAMOTIDINE 20 MG TAB PO (05:34)
[2017-09-16] MEDS: METOPROLOL TART 50 MG TAB PO ×2 (05:34→20:15)
[2017-09-16] MEDS: SERTRALINE 100 MG TAB PO (05:35)
[2017-09-16] MEDS: HEPARIN SOD (PORCINE) 5000 UNITS/ML VIAL SQ ×3 (05:35→20:15)
[2017-09-16] MEDS: HumaLOG INSULIN (NovoLOG) PER UNIT SC ×4 (05:36→20:28)
[2017-09-16] MEDS: LEVEMIR (INSULIN DETEMIR) 1 UNITS/0.01ML SC ×2 (05:36→20:55)
[2017-09-16 05:48] LABS: ALBUMIN 2.1 GM/DL (3.2-5.2); ALBUMIN/GLOBULIN RATIO 0.51 (1.00-1.93); ALKALINE PHOSPHATASE 263 U/L (45-117); ALT/SGPT 22 U/L (12-78); ANION GAP 9 MEQ/L (8-16); AST/SGOT 15 U/L (7-37); BILIRUBIN,TOTAL 0.3 MG/DL (0.2-1.0); BLOOD UREA NITROGEN 25 MG/DL (7-18); CALCIUM LEVEL 7.9 MG/DL (8.5-10.1); CARBON DIOXIDE LEVEL 27 MEQ/L (21-32); CHLORIDE LEVEL 102 MEQ/L (98-107); CREATININE FOR GFR 2.63 MG/DL (0.55-1.30); POTASSIUM SERUM 4.7 MEQ/L (3.5-5.1); SODIUM LEVEL 138 MEQ/L (136-145); TOTAL PROTEIN 6.2 GM/DL (6.4-8.2)
[2017-09-16 05:56] LABS: GLUCOSE, FASTING 429 MG/DL (70-100)
[2017-09-16 12:26] LABS: BEDSIDE GLUCOSE 144 MG/DL (70-105)
[2017-09-16 16:56] LABS: BEDSIDE GLUCOSE 109 MG/DL (70-105)
[2017-09-16] MEDS: FLUTICASONE PROP 0.05% NASAL SPRAY 16 GM (FLONASE) (18:19)
[2017-09-16] MEDS: ACETAMINOPHEN TAB 650MG DOSE (2X325MG) PO (18:20)
[2017-09-16] MEDS: ALPRAZolam 0.5 MG TAB PO (18:20)
[2017-09-16] MEDS: ATORVASTATIN 20 MG TAB PO (20:15)
[2017-09-16] MEDS: RAMELTEON 8 MG TAB (ROZEREM) PO (20:16)
[2017-09-16 20:27] LABS: BEDSIDE GLUCOSE 135 MG/DL (70-105)
[2017-09-16] MEDS: PERCOCET 5MG/325MG TAB PO (21:58)
[2017-09-17] MEDS: IPRATROPIUM 0.5MG/ALBUTEROL 2.5MG INH SOL UD 3ML (DUONEB)(J7620) NEB ×4 (02:00→20:00)
[2017-09-17] MEDS: NORCO, ANEXSIA 5/325MG TABLET (HYDROcodone/ACETAMINOPHEN) PO ×2 (02:13→17:01)
[2017-09-17 04:15] LABS: BEDSIDE GLUCOSE 472 MG/DL (70-105)
[2017-09-17] MEDS: LEVEMIR (INSULIN DETEMIR) 1 UNITS/0.01ML SC ×2 (04:23→20:27)
[2017-09-17] MEDS: HumaLOG INSULIN (NovoLOG) PER UNIT SC ×4 (04:23→20:24)
[2017-09-17] MEDS: METOPROLOL TART 50 MG TAB PO ×2 (04:24→20:35)
[2017-09-17 04:46] LABS: BASO # 0.1 10^3/uL (0.0-0.2); EOS # 0.1 10^3/uL (0.0-0.50); EOS % 2.2 % (0.0-3.0); HEMATOCRIT 30.8 % (36.0-47.0); HEMOGLOBIN 9.1 g/dl (12.0-15.5); IMMATURE GRANULOCYTE % 0.5 % (0-3.0); LYMPH # 0.7 10^3/uL (1.5-4.5); LYMPH % 11.4 % (24.0-44.0); MEAN CORPUSCULAR HEMOGLOBIN 26.2 pg (27.0-33.0); MEAN CORPUSCULAR HGB CONC 29.5 g/dl (32.0-36.5); MEAN CORPUSCULAR VOLUME 88.8 fl (80.0-96.0); MONO # 0.5 10^3/uL (0.0-0.8); MONO % 7.6 % (0.0-5.0); NEUTROPHILS # 4.7 10^3/uL (1.8-7.7); NEUTROPHILS % 77.3 % (36.0-66.0); PLATELET COUNT, AUTOMATED 380 10^3/uL (150-450); RED BLOOD COUNT 3.47 10^6/uL (4.00-5.40)
[2017-09-17] MEDS: amLODIPine 10 MG TAB PO (04:46)
[2017-09-17 05:11] LABS: ALBUMIN 2.2 GM/DL (3.2-5.2); ALBUMIN/GLOBULIN RATIO 0.63 (1.00-1.93); ALKALINE PHOSPHATASE 257 U/L (45-117); ALT/SGPT 20 U/L (12-78); ANION GAP 12 MEQ/L (8-16); AST/SGOT 14 U/L (7-37); BILIRUBIN,TOTAL 0.3 MG/DL (0.2-1.0); BLOOD UREA NITROGEN 37 MG/DL (7-18); CARBON DIOXIDE LEVEL 24 MEQ/L (21-32); CHLORIDE LEVEL 100 MEQ/L (98-107); CREATININE FOR GFR 3.15 MG/DL (0.55-1.30); GLOMERULAR FILTRATION RATE 16.2 (>51); MAGNESIUM LEVEL 2.3 MG/DL (1.8-2.4); SODIUM LEVEL 136 MEQ/L (136-145); TOTAL PROTEIN 5.7 GM/DL (6.4-8.2)
[2017-09-17 05:14] LABS: GLUCOSE, FASTING 481 MG/DL (70-100); POTASSIUM SERUM 5.3 MEQ/L (3.5-5.1)
[2017-09-17] MEDS: HEPARIN SOD (PORCINE) 5000 UNITS/ML VIAL SQ ×3 (06:00→22:00)
[2017-09-17 06:45] LABS: BEDSIDE GLUCOSE 313 MG/DL (70-105)
[2017-09-17] MEDS: CLOPIDOGREL 75 MG TAB PO (08:52)
[2017-09-17] MEDS: ASPIRIN 81 MG ENTERIC TAB PO (08:52)
[2017-09-17] MEDS: SERTRALINE 100 MG TAB PO (08:52)
[2017-09-17] MEDS: ACETAMINOPHEN TAB 650MG DOSE (2X325MG) PO (08:52)
[2017-09-17] MEDS: ALPRAZolam 0.5 MG TAB PO (08:52)
[2017-09-17] MEDS: FAMOTIDINE 20 MG TAB PO (08:53)
[2017-09-17] MEDS: CALCITRIOL 0.25 MCG CAP (S0169) PO (08:53)
[2017-09-17] MEDS: CALCIUM ACETATE 667 MG GELCAP PO ×3 (08:53→17:14)
[2017-09-17] MEDS: FLUTICASONE PROP 0.05% NASAL SPRAY 16 GM (FLONASE) ×2 (08:54→20:35)
[2017-09-17 12:42] LABS: BEDSIDE GLUCOSE 236 MG/DL (70-105)
[2017-09-17] MEDS ORDERED: PILL CRUSHER/CUTTER 1 EACH XX (13:45)
[2017-09-17] MEDS: SOD POLYSTYRENE SULFONATE SUSP 15 GM/60 ML UD PO (14:47)
[2017-09-17 17:06] LABS: BEDSIDE GLUCOSE 221 MG/DL (70-105)
[2017-09-17 20:24] LABS: BEDSIDE GLUCOSE 180 MG/DL (70-105)
[2017-09-17] MEDS: RAMELTEON 8 MG TAB (ROZEREM) PO (20:24)
[2017-09-17] MEDS: ATORVASTATIN 20 MG TAB PO (20:27)
[2017-09-18] MEDS: IPRATROPIUM 0.5MG/ALBUTEROL 2.5MG INH SOL UD 3ML (DUONEB)(J7620) NEB (01:55)
[2017-09-18] MEDS: ALPRAZolam 0.5 MG TAB PO (02:53)
[2017-09-18 03:32] LABS: BEDSIDE GLUCOSE 273 MG/DL (70-105)
[2017-09-18 05:52] LABS: BASO # 0.1 10^3/uL (0.0-0.2); BASO % 1.1 % (0.0-1.0); EOS # 0.2 10^3/uL (0.0-0.50); EOS % 3.3 % (0.0-3.0); HEMATOCRIT 31.8 % (36.0-47.0); HEMOGLOBIN 9.6 g/dl (12.0-15.5); IMMATURE GRANULOCYTE % 0.5 % (0-3.0); LYMPH % 16.1 % (24.0-44.0); MEAN CORPUSCULAR HEMOGLOBIN 26.4 pg (27.0-33.0); MEAN CORPUSCULAR HGB CONC 30.2 g/dl (32.0-36.5); MEAN CORPUSCULAR VOLUME 87.6 fl (80.0-96.0); MONO # 0.5 10^3/uL (0.0-0.8); MONO % 7.1 % (0.0-5.0); NEUTROPHILS # 4.6 10^3/uL (1.8-7.7); NEUTROPHILS % 71.9 % (36.0-66.0); PLATELET COUNT, AUTOMATED 407 10^3/uL (150-450); RED BLOOD COUNT 3.63 10^6/uL (4.00-5.40); RED CELL DISTRIBUTION WIDTH 20.8 % (11.5-14.5); WHITE BLOOD COUNT 6.4 10^3/uL (4.0-10.0)
[2017-09-18] MEDS: HEPARIN SOD (PORCINE) 5000 UNITS/ML VIAL SQ (06:00)
[2017-09-18 06:26] LABS: ALBUMIN 2.2 GM/DL (3.2-5.2); ALKALINE PHOSPHATASE 278 U/L (45-117); ALT/SGPT 23 U/L (12-78); ANION GAP 9 MEQ/L (8-16); AST/SGOT 17 U/L (7-37); BILIRUBIN,TOTAL 0.3 MG/DL (0.2-1.0); BLOOD UREA NITROGEN 48 MG/DL (7-18); CARBON DIOXIDE LEVEL 24 MEQ/L (21-32); CHLORIDE LEVEL 101 MEQ/L (98-107); CREATININE FOR GFR 3.68 MG/DL (0.55-1.30); GLOMERULAR FILTRATION RATE 13.6 (>51); GLUCOSE, FASTING 264 MG/DL (70-100); MAGNESIUM LEVEL 2.4 MG/DL (1.8-2.4); POTASSIUM SERUM 4.9 MEQ/L (3.5-5.1); SODIUM LEVEL 134 MEQ/L (136-145); TOTAL PROTEIN 6.6 GM/DL (6.4-8.2)
[2017-09-18] MEDS ORDERED: amLODIPine 10 MG TAB PO ×2 (09:00)
== END 2017-09-18 07:38 | disposition left against medical advice (07) | DRG 299 ==
LOC: M ED 12:07 → M ED INP 14:59 → M PCU 19:20
PROC: 02PY33Z Removal of Infusion Device from Great Vessel, Percutaneous Approach (ICD-10-PCS; principal; 2017-09-13)
PROC: 0JPT0XZ Removal of Tunneled Vascular Access Device from Trunk Subcutaneous Tissue and Fascia, Open Approach (ICD-10-PCS; 2017-09-13)
PROC: 02H633Z Insertion of Infusion Device into Right Atrium, Percutaneous Approach (ICD-10-PCS; 2017-09-13)
PROC: 0JH63XZ Insertion of Tunneled Vascular Access Device into Chest Subcutaneous Tissue and Fascia, Percutaneous Approach (ICD-10-PCS; 2017-09-13)
DX: E11.52 Type 2 diabetes mellitus with diabetic peripheral angiopathy with gangrene (principal); N18.6 End stage renal disease; I50.23 Acute on chronic systolic (congestive) heart failure; I13.2 Hypertensive heart and chronic kidney disease with heart failure and with stage 5 chronic kidney disease, or end stage renal disease; E87.5 Hyperkalemia; E11.65 Type 2 diabetes mellitus with hyperglycemia; R19.7 Diarrhea, unspecified; N25.0 Renal osteodystrophy; K21.9 Gastro-esophageal reflux disease without esophagitis; F41.9 Anxiety disorder, unspecified; F32.9 Major depressive disorder, single episode, unspecified; I25.10 Atherosclerotic heart disease of native coronary artery without angina pectoris; G47.00 Insomnia, unspecified; D50.9 Iron deficiency anemia, unspecified; Z89.512 Acquired absence of left leg below knee; Z91.19 Patient's noncompliance with other medical treatment and regimen; Z79.82 Long term (current) use of aspirin; Z79.899 Other long term (current) drug therapy; Z88.5 Allergy status to narcotic agent; Z91.041 Radiographic dye allergy status; J44.9 Chronic obstructive pulmonary disease, unspecified; E78.5 Hyperlipidemia, unspecified; E11.21 Type 2 diabetes mellitus with diabetic nephropathy; D63.1 Anemia in chronic kidney disease; Z95.2 Presence of prosthetic heart valve

== ENCOUNTER 2017-10-21 14:38 | Inpatient (IN) | payer MEDICARE ==
[2017-10-21] MEDS ORDERED: DEXTROSE 50% 50 ML SYRINGE As Ordered (14:44)
[2017-10-21] MEDS: DEXTROSE 50% 50 ML SYRINGE IV (14:48)
[2017-10-21 14:53] LABS: BASO # 0.1 10^3/uL (0.0-0.2); EOS # 0.4 10^3/uL (0.0-0.50); EOS % 5.3 % (0.0-3.0); HEMOGLOBIN 10.1 g/dl (12.0-15.5); IMMATURE GRANULOCYTE % 0.3 % (0-3.0); LYMPH # 1.6 10^3/uL (1.5-4.5); LYMPH % 22.6 % (24.0-44.0); MEAN CORPUSCULAR HEMOGLOBIN 24.6 pg (27.0-33.0); MEAN CORPUSCULAR HGB CONC 29.7 g/dl (32.0-36.5); MEAN CORPUSCULAR VOLUME 82.9 fl (80.0-96.0); MONO # 0.4 10^3/uL (0.0-0.8); MONO % 6.1 % (0.0-5.0); NEUTROPHILS # 4.5 10^3/uL (1.8-7.7); NEUTROPHILS % 64.7 % (36.0-66.0); PLATELET COUNT, AUTOMATED 406 10^3/uL (150-450); RED CELL DISTRIBUTION WIDTH 19.6 % (11.5-14.5)
[2017-10-21 14:56] LABS: VENOUS HCO3 17.6 MEQ/L (23.0-27.0); VENOUS PARTIAL PRESSURE CO2 40.7 mmHg (38.0-50.0); VENOUS PARTIAL PRESSURE O2 85.7 mmHg (30.0-50.0); VENOUS PH 7.254 UNITS (7.330-7.430); VENOUS STANDARD HCO3 17.2 MEQ/L; VENOUS TOTAL CO2 18.9 MEQ/L (24.0-28.0)
[2017-10-21 15:20] LABS: LACTIC ACID SEPSIS PROTOCOL 1.2 MMOL/L (0.4-2.0)
[2017-10-21 15:21] LABS: ANION GAP 14 MEQ/L (8-16); BLOOD UREA NITROGEN 55 MG/DL (7-18); CALCIUM LEVEL 6.7 MG/DL (8.5-10.1); CARBON DIOXIDE LEVEL 21 MEQ/L (21-32); CHLORIDE LEVEL 110 MEQ/L (98-107); CK-MB VALUE MASS 4.1 NG/ML (<3.6); CPK CREATINE PHOSPHOKINASE 68 U/L (26-192); CREATININE FOR GFR 5.22 MG/DL (0.55-1.30); GLOMERULAR FILTRATION RATE 9.1 (>51); MB/CK RELATIVE INDEX 6.02 (< OR =4); POTASSIUM SERUM 4.6 MEQ/L (3.5-5.1); SODIUM LEVEL 145 MEQ/L (136-145); TROPONIN I 0.06 NG/ML (< 0.10)
[2017-10-21 15:23] LABS: GLUCOSE, FASTING 21 MG/DL (70-100)
[2017-10-21 15:24] LABS: BEDSIDE GLUCOSE 84 MG/DL (70-105)
[2017-10-21] MEDS ORDERED: ALBUTEROL 90 MCG/ACT 8GM HFA INHALER INH (18:00)
[2017-10-21] MEDS: CALCIUM ACETATE 667 MG GELCAP PO (18:00)
[2017-10-21] MEDS: HEPARIN 1,000 UNITS/ML 10ML VIAL (FOR RADIOLOGY& DIALYSIS ONLY) IV (18:30)
[2017-10-21 21:14] LABS: BEDSIDE GLUCOSE 268 MG/DL (70-105)
[2017-10-21] MEDS: ATORVASTATIN 20 MG TAB PO (22:40)
[2017-10-21] MEDS: METOPROLOL TART 50 MG TAB PO (22:41)
[2017-10-21] MEDS: ALPRAZolam 0.5 MG TAB PO (22:41)
[2017-10-21 23:03] LABS: TROPONIN I 0.07 NG/ML (< 0.10)
[2017-10-22 01:04] LABS: BEDSIDE GLUCOSE 306 MG/DL (70-105)
[2017-10-22 04:37] LABS: BASO # 0.1 10^3/uL (0.0-0.2); BASO % 1.2 % (0.0-1.0); EOS # 0.3 10^3/uL (0.0-0.50); EOS % 4.9 % (0.0-3.0); HEMATOCRIT 30.9 % (36.0-47.0); HEMOGLOBIN 9.6 g/dl (12.0-15.5); IMMATURE GRANULOCYTE % 0.4 % (0-3.0); LYMPH # 1.4 10^3/uL (1.5-4.5); LYMPH % 25.4 % (24.0-44.0); MEAN CORPUSCULAR HEMOGLOBIN 24.7 pg (27.0-33.0); MEAN CORPUSCULAR HGB CONC 31.1 g/dl (32.0-36.5); MEAN CORPUSCULAR VOLUME 79.4 fl (80.0-96.0); MONO # 0.5 10^3/uL (0.0-0.8); MONO % 8.1 % (0.0-5.0); NEUTROPHILS # 3.4 10^3/uL (1.8-7.7); PLATELET COUNT, AUTOMATED 342 10^3/uL (150-450); RED BLOOD COUNT 3.89 10^6/uL (4.00-5.40); RED CELL DISTRIBUTION WIDTH 19.8 % (11.5-14.5); WHITE BLOOD COUNT 5.7 10^3/uL (4.0-10.0)
[2017-10-22 05:01] LABS: ALBUMIN 1.7 GM/DL (3.2-5.2); ANION GAP 11 MEQ/L (8-16); BLOOD UREA NITROGEN 33 MG/DL (7-18); CALCIUM LEVEL 6.5 MG/DL (8.5-10.1); CARBON DIOXIDE LEVEL 24 MEQ/L (21-32); CHLORIDE LEVEL 107 MEQ/L (98-107); CREATININE FOR GFR 3.83 MG/DL (0.55-1.30); GLUCOSE, FASTING 214 MG/DL (70-100); MAGNESIUM LEVEL 1.7 MG/DL (1.8-2.4); PHOSPHORUS LEVEL 5.7 MG/DL (2.5-4.9); POTASSIUM SERUM 4.2 MEQ/L (3.5-5.1); SODIUM LEVEL 142 MEQ/L (136-145)
[2017-10-22 05:05] LABS: TROPONIN I 0.07 NG/ML (< 0.10)
[2017-10-22] MEDS ORDERED: GLUCAGON FOR INJ 1 MG VIAL (J1610) SC (07:45)
[2017-10-22] MEDS ORDERED: DEXTROSE 50% 50 ML SYRINGE IV (07:45)
[2017-10-22] MEDS: TORSEMIDE 20 MG TAB PO (08:55)
[2017-10-22] MEDS: FAMOTIDINE 20 MG TAB PO (08:55)
[2017-10-22] MEDS: SENNA 8.6 MG TAB (SENOKOT) PO (08:55)
[2017-10-22] MEDS: HumaLOG INSULIN (NovoLOG) PER UNIT SC ×4 (08:55→20:23)
[2017-10-22] MEDS: CALCITRIOL 0.25 MCG CAP (S0169) PO (08:56)
[2017-10-22] MEDS: amLODIPine 5 MG TAB PO (08:56)
[2017-10-22] MEDS: METOPROLOL TART 50 MG TAB PO ×2 (08:56→20:18)
[2017-10-22] MEDS: CLOPIDOGREL 75 MG TAB PO (08:56)
[2017-10-22] MEDS: ALPRAZolam 0.5 MG TAB PO ×3 (08:56→20:17)
[2017-10-22] MEDS: ASPIRIN 81 MG ENTERIC TAB PO (08:57)
[2017-10-22] MEDS: CALCIUM ACETATE 667 MG GELCAP PO ×3 (08:57→17:44)
[2017-10-22] MEDS: SERTRALINE 100 MG TAB PO (08:57)
[2017-10-22] MEDS: MAG SULF 1GM/100ML (MAG RUN) 1 GM in APPROPRIATE DILUENT 1 EA IV (08:57)
[2017-10-22] MEDS: ATORVASTATIN 20 MG TAB PO (20:17)
[2017-10-23] MEDS: ONDANSETRON 4 MG TAB (S0181) PO (00:24)
[2017-10-23] MEDS: NORCO, ANEXSIA 5/325MG TABLET (HYDROcodone/ACETAMINOPHEN) PO (00:24)
[2017-10-23 02:21] LABS: BEDSIDE GLUCOSE 136 MG/DL (70-105)
[2017-10-23 02:21] LABS: BEDSIDE GLUCOSE 45 MG/DL (70-105)
[2017-10-23 02:21] LABS: BEDSIDE GLUCOSE 309 MG/DL (70-105)
[2017-10-23] MEDS: SENNA 8.6 MG TAB (SENOKOT) PO (05:55)
[2017-10-23] MEDS: ALPRAZolam 0.5 MG TAB PO ×3 (05:56→20:53)
[2017-10-23] MEDS: CLOPIDOGREL 75 MG TAB PO (05:56)
[2017-10-23] MEDS: TORSEMIDE 20 MG TAB PO (05:56)
[2017-10-23] MEDS: ASPIRIN 81 MG ENTERIC TAB PO (05:56)
[2017-10-23] MEDS: CALCITRIOL 0.25 MCG CAP (S0169) PO (05:57)
[2017-10-23] MEDS: SERTRALINE 100 MG TAB PO (05:57)
[2017-10-23] MEDS: METOPROLOL TART 50 MG TAB PO ×2 (05:57→20:53)
[2017-10-23] MEDS: amLODIPine 5 MG TAB PO (05:58)
[2017-10-23] MEDS: FAMOTIDINE 20 MG TAB PO (05:58)
[2017-10-23] MEDS: CALCIUM ACETATE 667 MG GELCAP PO ×3 (05:58→17:54)
[2017-10-23 06:05] LABS: BASO # 0.1 10^3/uL (0.0-0.2); BASO % 1.3 % (0.0-1.0); EOS # 0.3 10^3/uL (0.0-0.50); EOS % 5.7 % (0.0-3.0); HEMATOCRIT 33.7 % (36.0-47.0); IMMATURE GRANULOCYTE % 0.4 % (0-3.0); LYMPH # 1.6 10^3/uL (1.5-4.5); LYMPH % 28.6 % (24.0-44.0); MEAN CORPUSCULAR HEMOGLOBIN 24.2 pg (27.0-33.0); MEAN CORPUSCULAR HGB CONC 29.7 g/dl (32.0-36.5); MEAN CORPUSCULAR VOLUME 81.6 fl (80.0-96.0); MONO # 0.5 10^3/uL (0.0-0.8); MONO % 8.8 % (0.0-5.0); NEUTROPHILS % 55.2 % (36.0-66.0); PLATELET COUNT, AUTOMATED 422 10^3/uL (150-450); RED BLOOD COUNT 4.13 10^6/uL (4.00-5.40); RED CELL DISTRIBUTION WIDTH 19.8 % (11.5-14.5); WHITE BLOOD COUNT 5.5 10^3/uL (4.0-10.0)
[2017-10-23 06:27] LABS: ALBUMIN 1.8 GM/DL (3.2-5.2); ANION GAP 8 MEQ/L (8-16); BLOOD UREA NITROGEN 33 MG/DL (7-18); CALCIUM LEVEL 7.3 MG/DL (8.5-10.1); CARBON DIOXIDE LEVEL 27 MEQ/L (21-32); CHLORIDE LEVEL 102 MEQ/L (98-107); CREATININE FOR GFR 4.24 MG/DL (0.55-1.30); FERRITIN 48 NG/ML (8-252); GLOMERULAR FILTRATION RATE 11.5 (>51); GLUCOSE, FASTING 203 MG/DL (70-100); IRON (FE) 19 UG/DL (50-170); MAGNESIUM LEVEL 1.9 MG/DL (1.8-2.4); PERCENT SATURATION 8.4 % (13.2-45.0); PHOSPHORUS LEVEL 6.2 MG/DL (2.5-4.9); POTASSIUM SERUM 4.4 MEQ/L (3.5-5.1); SODIUM LEVEL 137 MEQ/L (136-145); TOTAL IRON BINDING CAPACITY 227 UG/DL (250-450)
[2017-10-23] MEDS: HumaLOG INSULIN (NovoLOG) PER UNIT SC ×4 (08:23→20:53)
[2017-10-23] MEDS ORDERED: IRON SUCROSE 100MG 5ML VIAL (J1756 PER 1MG) IV (08:45)
[2017-10-23 09:21] LABS: CPK CREATINE PHOSPHOKINASE 65 U/L (26-192); TROPONIN I 0.06 NG/ML (< 0.10)
[2017-10-23 09:22] LABS: CK-MB VALUE MASS 3.9 NG/ML (<3.6)
[2017-10-23 12:24] LABS: BEDSIDE GLUCOSE 44 MG/DL (70-105)
[2017-10-23 13:39] LABS: BEDSIDE GLUCOSE 47 MG/DL (70-105)
[2017-10-23] MEDS: GLUCOSE 4 GM CHEW TABLET PO (13:42)
[2017-10-23 15:05] LABS: BEDSIDE GLUCOSE 125 MG/DL (70-105)
[2017-10-23 16:56] LABS: BEDSIDE GLUCOSE 137 MG/DL (70-105)
[2017-10-23 20:23] LABS: BEDSIDE GLUCOSE 240 MG/DL (70-105)
[2017-10-23] MEDS: ATORVASTATIN 20 MG TAB PO (20:53)
[2017-10-24] MEDS: ONDANSETRON 4 MG TAB (S0181) PO (05:44)
[2017-10-24] MEDS: TORSEMIDE 20 MG TAB PO (06:25)
[2017-10-24] MEDS: CLOPIDOGREL 75 MG TAB PO (06:26)
[2017-10-24] MEDS: SERTRALINE 100 MG TAB PO (06:26)
[2017-10-24] MEDS: CALCIUM ACETATE 667 MG GELCAP PO ×3 (06:27→18:00)
[2017-10-24] MEDS: SENNA 8.6 MG TAB (SENOKOT) PO (06:27)
[2017-10-24] MEDS: ASPIRIN 81 MG ENTERIC TAB PO (06:28)
[2017-10-24] MEDS: METOPROLOL TART 50 MG TAB PO ×2 (06:28→20:17)
[2017-10-24] MEDS: ALPRAZolam 0.5 MG TAB PO ×3 (06:28→20:17)
[2017-10-24] MEDS: FAMOTIDINE 20 MG TAB PO (06:28)
[2017-10-24] MEDS: CALCITRIOL 0.25 MCG CAP (S0169) PO (06:28)
[2017-10-24] MEDS: amLODIPine 5 MG TAB PO (06:28)
[2017-10-24 07:01] LABS: BASO # 0.1 10^3/uL (0.0-0.2); BASO % 1.1 % (0.0-1.0); EOS # 0.1 10^3/uL (0.0-0.50); HEMATOCRIT 35.7 % (36.0-47.0); HEMOGLOBIN 10.5 g/dl (12.0-15.5); IMMATURE GRANULOCYTE % 0.5 % (0-3.0); LYMPH # 1.1 10^3/uL (1.5-4.5); LYMPH % 18.4 % (24.0-44.0); MEAN CORPUSCULAR HEMOGLOBIN 24.4 pg (27.0-33.0); MEAN CORPUSCULAR HGB CONC 29.4 g/dl (32.0-36.5); MONO # 0.4 10^3/uL (0.0-0.8); NEUTROPHILS # 4.3 10^3/uL (1.8-7.7); PLATELET COUNT, AUTOMATED 446 10^3/uL (150-450); WHITE BLOOD COUNT 6.1 10^3/uL (4.0-10.0)
[2017-10-24 07:20] LABS: ALBUMIN 1.9 GM/DL (3.2-5.2); ANION GAP 11 MEQ/L (8-16); BLOOD UREA NITROGEN 38 MG/DL (7-18); CALCIUM LEVEL 7.9 MG/DL (8.5-10.1); CARBON DIOXIDE LEVEL 23 MEQ/L (21-32); CHLORIDE LEVEL 99 MEQ/L (98-107); PHOSPHORUS LEVEL 6.5 MG/DL (2.5-4.9); SODIUM LEVEL 133 MEQ/L (136-145)
[2017-10-24 07:22] LABS: GLUCOSE, FASTING 494 MG/DL (70-100); POTASSIUM SERUM 5.4 MEQ/L (3.5-5.1)
[2017-10-24] MEDS: HumaLOG INSULIN (NovoLOG) PER UNIT SC ×4 (08:33→20:17)
[2017-10-24] MEDS: HEPARIN 1,000 UNITS/ML 10ML VIAL (FOR RADIOLOGY& DIALYSIS ONLY) IV (12:00)
[2017-10-24] MEDS: HEPARIN 1,000 UNITS/ML 10ML VIAL (FOR RADIOLOGY& DIALYSIS ONLY) XX (12:00)
[2017-10-24 15:42] LABS: CK-MB VALUE MASS 3.1 NG/ML (<3.6); CPK CREATINE PHOSPHOKINASE 57 U/L (26-192); MB/CK RELATIVE INDEX 5.43 (< OR =4); TROPONIN I 0.05 NG/ML (< 0.10)
[2017-10-24] MEDS: ATORVASTATIN 20 MG TAB PO (20:16)
[2017-10-25 03:28] LABS: BEDSIDE GLUCOSE 135 MG/DL (70-105)
[2017-10-25 03:28] LABS: BEDSIDE GLUCOSE 129 MG/DL (70-105)
[2017-10-25 03:28] LABS: BEDSIDE GLUCOSE 455 MG/DL (70-105)
[2017-10-25] MEDS ORDERED: NORCO, ANEXSIA 5/325MG TABLET (HYDROcodone/ACETAMINOPHEN) PO (04:15)
[2017-10-25] MEDS: ONDANSETRON 4 MG TAB (S0181) PO (04:27)
[2017-10-25] MEDS: NORCO, ANEXSIA 5/325MG TABLET (HYDROcodone/ACETAMINOPHEN) PO (04:28)
[2017-10-25] MEDS: SERTRALINE 100 MG TAB PO (06:45)
[2017-10-25] MEDS: CALCITRIOL 0.25 MCG CAP (S0169) PO (06:45)
[2017-10-25] MEDS: CALCIUM ACETATE 667 MG GELCAP PO ×3 (06:45→18:00)
[2017-10-25] MEDS: FAMOTIDINE 20 MG TAB PO (06:46)
[2017-10-25] MEDS: ASPIRIN 81 MG ENTERIC TAB PO (06:46)
[2017-10-25] MEDS: METOPROLOL TART 50 MG TAB PO ×2 (06:46→21:21)
[2017-10-25] MEDS: CLOPIDOGREL 75 MG TAB PO (06:46)
[2017-10-25] MEDS: TORSEMIDE 20 MG TAB PO (06:46)
[2017-10-25] MEDS: ALPRAZolam 0.5 MG TAB PO ×3 (06:47→21:21)
[2017-10-25] MEDS: SENNA 8.6 MG TAB (SENOKOT) PO (06:47)
[2017-10-25] MEDS: amLODIPine 5 MG TAB PO (06:47)
[2017-10-25 06:58] LABS: BASO # 0.1 10^3/uL (0.0-0.2); BASO % 1.3 % (0.0-1.0); EOS # 0.1 10^3/uL (0.0-0.50); EOS % 0.8 % (0.0-3.0); HEMATOCRIT 33.5 % (36.0-47.0); HEMOGLOBIN 10.3 g/dl (12.0-15.5); IMMATURE GRANULOCYTE % 0.8 % (0-3.0); LYMPH # 0.6 10^3/uL (1.5-4.5); LYMPH % 9.8 % (24.0-44.0); MEAN CORPUSCULAR HEMOGLOBIN 24.5 pg (27.0-33.0); MEAN CORPUSCULAR HGB CONC 30.7 g/dl (32.0-36.5); MEAN CORPUSCULAR VOLUME 79.8 fl (80.0-96.0); MONO # 0.3 10^3/uL (0.0-0.8); MONO % 4.6 % (0.0-5.0); NEUTROPHILS % 82.7 % (36.0-66.0); PLATELET COUNT, AUTOMATED 431 10^3/uL (150-450); RED CELL DISTRIBUTION WIDTH 19.9 % (11.5-14.5); WHITE BLOOD COUNT 6.1 10^3/uL (4.0-10.0)
[2017-10-25 07:23] LABS: ALBUMIN 2.1 GM/DL (3.2-5.2); ANION GAP 12 MEQ/L (8-16); BLOOD UREA NITROGEN 32 MG/DL (7-18); CARBON DIOXIDE LEVEL 22 MEQ/L (21-32); CHLORIDE LEVEL 99 MEQ/L (98-107); CREATININE FOR GFR 4.02 MG/DL (0.55-1.30); GLOMERULAR FILTRATION RATE 12.3 (>51); MAGNESIUM LEVEL 1.9 MG/DL (1.8-2.4); PHOSPHORUS LEVEL 5.1 MG/DL (2.5-4.9); POTASSIUM SERUM 4.8 MEQ/L (3.5-5.1); SODIUM LEVEL 133 MEQ/L (136-145)
[2017-10-25 08:13] LABS: GLUCOSE, FASTING 405 MG/DL (70-100)
[2017-10-25] MEDS: HumaLOG INSULIN (NovoLOG) PER UNIT SC ×4 (08:52→21:00)
[2017-10-25 11:50] LABS: PTH INTACT 269.6 PG/ML (18.5-88.0)
[2017-10-25 12:13] LABS: BEDSIDE GLUCOSE 387 MG/DL (70-105)
[2017-10-25] MEDS: HEPARIN 1,000 UNITS/ML 10ML VIAL (FOR RADIOLOGY& DIALYSIS ONLY) XX (13:00)
[2017-10-25] MEDS: HEPARIN 1,000 UNITS/ML 10ML VIAL (FOR RADIOLOGY& DIALYSIS ONLY) IV (13:00)
[2017-10-25 18:34] LABS: BEDSIDE GLUCOSE 175 MG/DL (70-105)
[2017-10-25 20:23] LABS: BEDSIDE GLUCOSE 139 MG/DL (70-105)
[2017-10-25] MEDS: ATORVASTATIN 20 MG TAB PO (21:20)
[2017-10-25 21:37] LABS: BEDSIDE GLUCOSE 117 MG/DL (70-105)
[2017-10-26] MEDS: TORSEMIDE 20 MG TAB PO (06:06)
[2017-10-26] MEDS: SENNA 8.6 MG TAB (SENOKOT) PO (06:06)
[2017-10-26] MEDS: CLOPIDOGREL 75 MG TAB PO (06:06)
[2017-10-26] MEDS: CALCITRIOL 0.25 MCG CAP (S0169) PO (06:06)
[2017-10-26] MEDS: CALCIUM ACETATE 667 MG GELCAP PO ×3 (06:07→17:48)
[2017-10-26] MEDS: FAMOTIDINE 20 MG TAB PO (06:07)
[2017-10-26] MEDS: ASPIRIN 81 MG ENTERIC TAB PO (06:07)
[2017-10-26] MEDS: ALPRAZolam 0.5 MG TAB PO ×3 (06:08→20:36)
[2017-10-26] MEDS: METOPROLOL TART 50 MG TAB PO ×2 (06:08→20:38)
[2017-10-26] MEDS: SERTRALINE 100 MG TAB PO (06:08)
[2017-10-26] MEDS: amLODIPine 5 MG TAB PO (06:08)
[2017-10-26 06:49] LABS: BASO # 0.1 10^3/uL (0.0-0.2); BASO % 0.9 % (0.0-1.0); EOS # 0.1 10^3/uL (0.0-0.50); EOS % 2.2 % (0.0-3.0); HEMATOCRIT 32.7 % (36.0-47.0); IMMATURE GRANULOCYTE % 0.6 % (0-3.0); LYMPH # 1.9 10^3/uL (1.5-4.5); MEAN CORPUSCULAR HEMOGLOBIN 24.1 pg (27.0-33.0); MEAN CORPUSCULAR HGB CONC 30.6 g/dl (32.0-36.5); MEAN CORPUSCULAR VOLUME 78.8 fl (80.0-96.0); MONO # 0.4 10^3/uL (0.0-0.8); MONO % 6.9 % (0.0-5.0); NEUTROPHILS # 3.8 10^3/uL (1.8-7.7); NEUTROPHILS % 59.4 % (36.0-66.0); PLATELET COUNT, AUTOMATED 443 10^3/uL (150-450); RED BLOOD COUNT 4.15 10^6/uL (4.00-5.40); RED CELL DISTRIBUTION WIDTH 19.9 % (11.5-14.5); WHITE BLOOD COUNT 6.4 10^3/uL (4.0-10.0)
[2017-10-26 07:03] LABS: ANION GAP 13 MEQ/L (8-16); BLOOD UREA NITROGEN 39 MG/DL (7-18); CALCIUM LEVEL 7.8 MG/DL (8.5-10.1); CARBON DIOXIDE LEVEL 23 MEQ/L (21-32); CHLORIDE LEVEL 99 MEQ/L (98-107); CREATININE FOR GFR 4.58 MG/DL (0.55-1.30); GLOMERULAR FILTRATION RATE 10.5 (>51); GLUCOSE, FASTING 280 MG/DL (70-100); PHOSPHORUS LEVEL 5.6 MG/DL (2.5-4.9); POTASSIUM SERUM 4.5 MEQ/L (3.5-5.1); SODIUM LEVEL 135 MEQ/L (136-145)
[2017-10-26] MEDS: HumaLOG INSULIN (NovoLOG) PER UNIT SC ×5 (07:30→20:37)
[2017-10-26] MEDS: LEVEMIR (INSULIN DETEMIR) 1 UNITS/0.01ML SC (08:00)
[2017-10-26] MEDS: ACETAMINOPHEN 325 MG TAB PO (09:30)
[2017-10-26] MEDS: HEPARIN 1,000 UNITS/ML 10ML VIAL (FOR RADIOLOGY& DIALYSIS ONLY) XX (12:00)
[2017-10-26] MEDS: HEPARIN 1,000 UNITS/ML 10ML VIAL (FOR RADIOLOGY& DIALYSIS ONLY) IV (12:00)
[2017-10-26 15:07] LABS: BEDSIDE GLUCOSE 265 MG/DL (70-105)
[2017-10-26] MEDS: LACTULOSE 20 GM/30 ML SYRUP UD PO (16:25)
[2017-10-26 18:02] LABS: BEDSIDE GLUCOSE 320 MG/DL (70-105)
[2017-10-26 20:04] LABS: BEDSIDE GLUCOSE 262 MG/DL (70-105)
[2017-10-26] MEDS: ATORVASTATIN 20 MG TAB PO (20:36)
[2017-10-27 06:35] LABS: BEDSIDE GLUCOSE 271 MG/DL (70-105)
[2017-10-27 06:45] LABS: BASO # 0.1 10^3/uL (0.0-0.2); BASO % 0.9 % (0.0-1.0); EOS # 0.1 10^3/uL (0.0-0.50); EOS % 1.9 % (0.0-3.0); HEMATOCRIT 32.4 % (36.0-47.0); IMMATURE GRANULOCYTE % 0.9 % (0-3.0); LYMPH # 1.3 10^3/uL (1.5-4.5); LYMPH % 19.6 % (24.0-44.0); MEAN CORPUSCULAR HEMOGLOBIN 24.4 pg (27.0-33.0); MEAN CORPUSCULAR HGB CONC 30.9 g/dl (32.0-36.5); MEAN CORPUSCULAR VOLUME 79.2 fl (80.0-96.0); MONO # 0.4 10^3/uL (0.0-0.8); MONO % 6.4 % (0.0-5.0); NEUTROPHILS # 4.7 10^3/uL (1.8-7.7); NEUTROPHILS % 70.3 % (36.0-66.0); PLATELET COUNT, AUTOMATED 421 10^3/uL (150-450); RED BLOOD COUNT 4.09 10^6/uL (4.00-5.40); WHITE BLOOD COUNT 6.7 10^3/uL (4.0-10.0)
[2017-10-27 07:05] LABS: ANION GAP 11 MEQ/L (8-16); BLOOD UREA NITROGEN 28 MG/DL (7-18); CALCIUM LEVEL 7.9 MG/DL (8.5-10.1); CARBON DIOXIDE LEVEL 25 MEQ/L (21-32); CHLORIDE LEVEL 101 MEQ/L (98-107); CREATININE FOR GFR 3.74 MG/DL (0.55-1.30); GLOMERULAR FILTRATION RATE 13.3 (>51); GLUCOSE, FASTING 254 MG/DL (70-100); PHOSPHORUS LEVEL 3.9 MG/DL (2.5-4.9); SODIUM LEVEL 137 MEQ/L (136-145)
[2017-10-27] MEDS: HumaLOG INSULIN (NovoLOG) PER UNIT SC ×4 (08:29→20:48)
[2017-10-27] MEDS: TORSEMIDE 20 MG TAB PO (08:29)
[2017-10-27] MEDS: CALCIUM ACETATE 667 MG GELCAP PO ×3 (08:30→17:47)
[2017-10-27] MEDS: SERTRALINE 100 MG TAB PO (08:30)
[2017-10-27] MEDS: CALCITRIOL 0.25 MCG CAP (S0169) PO (08:30)
[2017-10-27] MEDS: SENNA 8.6 MG TAB (SENOKOT) PO (08:31)
[2017-10-27] MEDS: CLOPIDOGREL 75 MG TAB PO (08:31)
[2017-10-27] MEDS: amLODIPine 5 MG TAB PO (08:31)
[2017-10-27] MEDS: ALPRAZolam 0.5 MG TAB PO ×3 (08:31→20:46)
[2017-10-27] MEDS: FAMOTIDINE 20 MG TAB PO (08:31)
[2017-10-27] MEDS: METOPROLOL TART 50 MG TAB PO ×2 (08:31→20:46)
[2017-10-27] MEDS: ASPIRIN 81 MG ENTERIC TAB PO (08:31)
[2017-10-27 12:13] LABS: BEDSIDE GLUCOSE 359 MG/DL (70-105)
[2017-10-27 16:57] LABS: BEDSIDE GLUCOSE 330 MG/DL (70-105)
[2017-10-27 20:38] LABS: BEDSIDE GLUCOSE 393 MG/DL (70-105)
[2017-10-27] MEDS: ATORVASTATIN 20 MG TAB PO (20:46)
[2017-10-28 06:13] LABS: BASO # 0.1 10^3/uL (0.0-0.2); BASO % 0.9 % (0.0-1.0); EOS # 0.1 10^3/uL (0.0-0.50); EOS % 1.3 % (0.0-3.0); HEMATOCRIT 33.4 % (36.0-47.0); IMMATURE GRANULOCYTE % 0.6 % (0-3.0); LYMPH % 14.2 % (24.0-44.0); MEAN CORPUSCULAR HEMOGLOBIN 24.2 pg (27.0-33.0); MEAN CORPUSCULAR HGB CONC 29.9 g/dl (32.0-36.5); MEAN CORPUSCULAR VOLUME 80.7 fl (80.0-96.0); MONO # 0.5 10^3/uL (0.0-0.8); MONO % 7.2 % (0.0-5.0); NEUTROPHILS # 5.1 10^3/uL (1.8-7.7); NEUTROPHILS % 75.8 % (36.0-66.0); PLATELET COUNT, AUTOMATED 432 10^3/uL (150-450); RED BLOOD COUNT 4.14 10^6/uL (4.00-5.40); RED CELL DISTRIBUTION WIDTH 21.4 % (11.5-14.5); WHITE BLOOD COUNT 6.8 10^3/uL (4.0-10.0)
[2017-10-28] MEDS: SENNA 8.6 MG TAB (SENOKOT) PO (06:16)
[2017-10-28] MEDS: ALPRAZolam 0.5 MG TAB PO ×3 (06:17→21:26)
[2017-10-28] MEDS: ASPIRIN 81 MG ENTERIC TAB PO (06:17)
[2017-10-28] MEDS: CALCITRIOL 0.25 MCG CAP (S0169) PO (06:17)
[2017-10-28] MEDS: TORSEMIDE 20 MG TAB PO (06:17)
[2017-10-28] MEDS: FAMOTIDINE 20 MG TAB PO (06:17)
[2017-10-28] MEDS: SERTRALINE 100 MG TAB PO (06:18)
[2017-10-28] MEDS: METOPROLOL TART 50 MG TAB PO ×2 (06:18→21:27)
[2017-10-28] MEDS: CLOPIDOGREL 75 MG TAB PO (06:18)
[2017-10-28 06:39] LABS: ALBUMIN 2.1 GM/DL (3.2-5.2); BLOOD UREA NITROGEN 36 MG/DL (7-18); CARBON DIOXIDE LEVEL 24 MEQ/L (21-32); CHLORIDE LEVEL 95 MEQ/L (98-107); CREATININE FOR GFR 4.28 MG/DL (0.55-1.30); GLOMERULAR FILTRATION RATE 11.4 (>51); MAGNESIUM LEVEL 1.8 MG/DL (1.8-2.4); PHOSPHORUS LEVEL 3.2 MG/DL (2.5-4.9)
[2017-10-28 06:54] LABS: ANION GAP 12 MEQ/L (8-16); POTASSIUM SERUM 4.8 MEQ/L (3.5-5.1); SODIUM LEVEL 131 MEQ/L (136-145)
[2017-10-28 06:57] LABS: GLUCOSE, FASTING 657 MG/DL (70-100)
[2017-10-28] MEDS: HumaLOG INSULIN (NovoLOG) PER UNIT SC ×5 (07:10→21:00)
[2017-10-28] MEDS: LEVEMIR (INSULIN DETEMIR) 1 UNITS/0.01ML SC (07:10)
[2017-10-28] MEDS: CALCIUM ACETATE 667 MG GELCAP PO ×3 (07:32→17:12)
[2017-10-28] MEDS: amLODIPine 5 MG TAB PO (07:33)
[2017-10-28] MEDS: HEPARIN 1,000 UNITS/ML 10ML VIAL (FOR RADIOLOGY& DIALYSIS ONLY) IV (11:21)
[2017-10-28] MEDS: HEPARIN 1,000 UNITS/ML 10ML VIAL (FOR RADIOLOGY& DIALYSIS ONLY) XX (11:21)
[2017-10-28] MEDS: CANDESARTAN 4MG TABLET PO (15:52)
[2017-10-28 19:59] LABS: BEDSIDE GLUCOSE 178 MG/DL (70-105)
[2017-10-28 19:59] LABS: BEDSIDE GLUCOSE 237 MG/DL (70-105)
[2017-10-28 20:31] LABS: BEDSIDE GLUCOSE 191 MG/DL (70-105)
[2017-10-28] MEDS: ATORVASTATIN 20 MG TAB PO (21:27)
[2017-10-29 06:43] LABS: BEDSIDE GLUCOSE CONFIRMATION 724 MG/DL (LESS THAN 200)
[2017-10-29] MEDS: HumaLOG INSULIN (NovoLOG) PER UNIT SC ×4 (06:59→17:29)
[2017-10-29 07:38] LABS: BEDSIDE GLUCOSE > 600 MG/DL (70-105)
[2017-10-29 07:38] LABS: BEDSIDE GLUCOSE > 600 MG/DL (70-105)
[2017-10-29] MEDS: LEVEMIR (INSULIN DETEMIR) 1 UNITS/0.01ML SC (09:49)
[2017-10-29] MEDS: FAMOTIDINE 20 MG TAB PO (09:49)
[2017-10-29] MEDS: CANDESARTAN 4MG TABLET PO (09:49)
[2017-10-29] MEDS: CALCIUM ACETATE 667 MG GELCAP PO ×3 (09:49→17:29)
[2017-10-29] MEDS: CALCITRIOL 0.25 MCG CAP (S0169) PO (09:49)
[2017-10-29] MEDS: SERTRALINE 100 MG TAB PO (09:50)
[2017-10-29] MEDS: CLOPIDOGREL 75 MG TAB PO (09:50)
[2017-10-29] MEDS: ALPRAZolam 0.5 MG TAB PO ×3 (09:50→21:30)
[2017-10-29] MEDS: TORSEMIDE 20 MG TAB PO (09:50)
[2017-10-29] MEDS: ASPIRIN 81 MG ENTERIC TAB PO (09:50)
[2017-10-29] MEDS: SENNA 8.6 MG TAB (SENOKOT) PO (09:50)
[2017-10-29] MEDS: METOPROLOL TART 50 MG TAB PO ×2 (09:52→21:34)
[2017-10-29] MEDS ORDERED: ANEXSIA, NORCO 7.5MG/325MG TABLET(HYDROCODONE/APAP) PO (10:00)
[2017-10-29] MEDS ORDERED: VANCOMYCIN HCL 500 MG in D5W MINI-BAG PLUS 100 ML IV (10:00)
[2017-10-29] MEDS: ANEXSIA, NORCO 7.5MG/325MG TABLET(HYDROCODONE/APAP) PO (10:36)
[2017-10-29] MEDS: PIPERACILLIN/TAZOBACTAM SOD 2.25 GM in D5W MINI-BAG PLUS 50 ML IV ×2 (10:40→21:30)
[2017-10-29 11:06] LABS: C REACTIVE PROTEIN QUANTITATIV 4.68 MG/DL (0.00-0.30)
[2017-10-29 11:16] LABS: ERYTHROCYTE SEDIMENTATION RATE 18 mm/hr (0-30)
[2017-10-29 11:18] LABS: BEDSIDE GLUCOSE 576 MG/DL (70-105)
[2017-10-29] MEDS: VANCOMYCIN HCL 1,000 MG, VIAL MATE ADAPTER 1 EACH in D5W 250 ML IV (12:08)
[2017-10-29 14:04] LABS: BEDSIDE GLUCOSE 391 MG/DL (70-105)
[2017-10-29 17:09] LABS: BEDSIDE GLUCOSE 174 MG/DL (70-105)
[2017-10-29 20:51] LABS: BEDSIDE GLUCOSE 19 MG/DL (70-105)
[2017-10-29 20:55] LABS: BEDSIDE GLUCOSE 20 MG/DL (70-105)
[2017-10-29] MEDS: GLUCOSE 4 GM CHEW TABLET PO ×3 (21:28→22:34)
[2017-10-29] MEDS: ATORVASTATIN 20 MG TAB PO (21:30)
[2017-10-29 21:36] LABS: BEDSIDE GLUCOSE 20 MG/DL (70-105)
[2017-10-29 21:41] LABS: BEDSIDE GLUCOSE CONFIRMATION 29 MG/DL (LESS THAN 200)
[2017-10-29 21:48] LABS: BEDSIDE GLUCOSE 32 MG/DL (70-105)
[2017-10-29 23:07] LABS: BEDSIDE GLUCOSE 72 MG/DL (70-105)
[2017-10-30] MEDS: ANEXSIA, NORCO 7.5MG/325MG TABLET(HYDROCODONE/APAP) PO ×3 (03:57→21:22)
[2017-10-30 07:01] LABS: BEDSIDE GLUCOSE 60 MG/DL (70-105)
[2017-10-30 07:01] LABS: BEDSIDE GLUCOSE 153 MG/DL (70-105)
[2017-10-30 07:01] LABS: BEDSIDE GLUCOSE 133 MG/DL (70-105)
[2017-10-30 08:11] LABS: BEDSIDE GLUCOSE 159 MG/DL (70-105)
[2017-10-30 08:15] LABS: BASO # 0.1 10^3/uL (0.0-0.2); EOS # 0.2 10^3/uL (0.0-0.50); EOS % 2.6 % (0.0-3.0); HEMATOCRIT 34.9 % (36.0-47.0); HEMOGLOBIN 11.1 g/dl (12.0-15.5); IMMATURE GRANULOCYTE % 0.3 % (0-3.0); LYMPH # 1.6 10^3/uL (1.5-4.5); LYMPH % 22.2 % (24.0-44.0); MEAN CORPUSCULAR HEMOGLOBIN 24.7 pg (27.0-33.0); MEAN CORPUSCULAR HGB CONC 31.8 g/dl (32.0-36.5); MEAN CORPUSCULAR VOLUME 77.7 fl (80.0-96.0); MONO # 0.6 10^3/uL (0.0-0.8); MONO % 7.7 % (0.0-5.0); NEUTROPHILS # 4.8 10^3/uL (1.8-7.7); NEUTROPHILS % 66.2 % (36.0-66.0); PLATELET COUNT, AUTOMATED 410 10^3/uL (150-450); RED BLOOD COUNT 4.49 10^6/uL (4.00-5.40); RED CELL DISTRIBUTION WIDTH 20.9 % (11.5-14.5); WHITE BLOOD COUNT 7.2 10^3/uL (4.0-10.0)
[2017-10-30] MEDS: VANCOMYCIN HCL 500 MG in D5W MINI-BAG PLUS 100 ML IV (08:15)
[2017-10-30] MEDS: HumaLOG INSULIN (NovoLOG) PER UNIT SC ×4 (08:15→23:57)
[2017-10-30] MEDS: CALCITRIOL 0.25 MCG CAP (S0169) PO (08:15)
[2017-10-30] MEDS: ASPIRIN 81 MG ENTERIC TAB PO (08:15)
[2017-10-30] MEDS: CALCIUM ACETATE 667 MG GELCAP PO ×3 (08:16→17:28)
[2017-10-30] MEDS: CANDESARTAN 4MG TABLET PO (08:16)
[2017-10-30] MEDS: TORSEMIDE 20 MG TAB PO (08:16)
[2017-10-30] MEDS: SENNA 8.6 MG TAB (SENOKOT) PO (08:17)
[2017-10-30] MEDS: FAMOTIDINE 20 MG TAB PO (08:17)
[2017-10-30] MEDS: CLOPIDOGREL 75 MG TAB PO (08:17)
[2017-10-30] MEDS: METOPROLOL TART 50 MG TAB PO ×2 (08:17→21:24)
[2017-10-30] MEDS: ALPRAZolam 0.5 MG TAB PO ×3 (08:17→21:21)
[2017-10-30] MEDS: SERTRALINE 100 MG TAB PO (08:17)
[2017-10-30 08:42] LABS: ERYTHROCYTE SEDIMENTATION RATE 6 mm/hr (0-30)
[2017-10-30 08:59] LABS: ALBUMIN 1.8 GM/DL (3.2-5.2); ALBUMIN/GLOBULIN RATIO 0.53 (1.00-1.93); ALKALINE PHOSPHATASE 171 U/L (45-117); ALT/SGPT 18 U/L (12-78); ANION GAP 9 MEQ/L (8-16); AST/SGOT 23 U/L (7-37); BILIRUBIN,TOTAL 0.3 MG/DL (0.2-1.0); BLOOD UREA NITROGEN 36 MG/DL (7-18); C REACTIVE PROTEIN QUANTITATIV 3.06 MG/DL (0.00-0.30); CALCIUM LEVEL 7.5 MG/DL (8.5-10.1); CARBON DIOXIDE LEVEL 26 MEQ/L (21-32); CHLORIDE LEVEL 101 MEQ/L (98-107); CREATININE FOR GFR 3.59 MG/DL (0.55-1.30); GLUCOSE, FASTING 149 MG/DL (70-100); MAGNESIUM LEVEL 1.6 MG/DL (1.8-2.4); POTASSIUM SERUM 4.1 MEQ/L (3.5-5.1); SODIUM LEVEL 136 MEQ/L (136-145); TOTAL PROTEIN 5.2 GM/DL (6.4-8.2)
[2017-10-30] MEDS: PIPERACILLIN/TAZOBACTAM SOD 2.25 GM in D5W MINI-BAG PLUS 50 ML IV ×2 (10:11→21:24)
[2017-10-30 11:45] LABS: BEDSIDE GLUCOSE 109 MG/DL (70-105)
[2017-10-30 15:13] LABS: BEDSIDE GLUCOSE 80 MG/DL (70-105)
[2017-10-30] MEDS: **VANCO AFTER HD** MISC XX (15:30)
[2017-10-30 19:48] LABS: BEDSIDE GLUCOSE 232 MG/DL (70-105)
[2017-10-30] MEDS: ATORVASTATIN 20 MG TAB PO (21:22)
[2017-10-30 23:36] LABS: BEDSIDE GLUCOSE 381 MG/DL (70-105)
[2017-10-31 05:57] LABS: BASO # 0.1 10^3/uL (0.0-0.2); BASO % 0.9 % (0.0-1.0); EOS # 0.2 10^3/uL (0.0-0.50); EOS % 3.5 % (0.0-3.0); HEMATOCRIT 34.7 % (36.0-47.0); HEMOGLOBIN 10.6 g/dl (12.0-15.5); IMMATURE GRANULOCYTE % 0.3 % (0-3.0); LYMPH # 1.5 10^3/uL (1.5-4.5); LYMPH % 22.7 % (24.0-44.0); MEAN CORPUSCULAR HEMOGLOBIN 24.5 pg (27.0-33.0); MEAN CORPUSCULAR HGB CONC 30.5 g/dl (32.0-36.5); MEAN CORPUSCULAR VOLUME 80.3 fl (80.0-96.0); MONO # 0.7 10^3/uL (0.0-0.8); MONO % 10.5 % (0.0-5.0); NEUTROPHILS # 4.1 10^3/uL (1.8-7.7); NEUTROPHILS % 62.1 % (36.0-66.0); PLATELET COUNT, AUTOMATED 397 10^3/uL (150-450); RED BLOOD COUNT 4.32 10^6/uL (4.00-5.40); RED CELL DISTRIBUTION WIDTH 21.6 % (11.5-14.5); WHITE BLOOD COUNT 6.7 10^3/uL (4.0-10.0)
[2017-10-31 06:16] LABS: ANION GAP 10 MEQ/L (8-16); BLOOD UREA NITROGEN 41 MG/DL (7-18); CALCIUM LEVEL 7.5 MG/DL (8.5-10.1); CARBON DIOXIDE LEVEL 26 MEQ/L (21-32); CHLORIDE LEVEL 99 MEQ/L (98-107); CREATININE FOR GFR 3.93 MG/DL (0.55-1.30); GLOMERULAR FILTRATION RATE 12.6 (>51); GLUCOSE, FASTING 266 MG/DL (70-100); POTASSIUM SERUM 4.4 MEQ/L (3.5-5.1); SODIUM LEVEL 135 MEQ/L (136-145); VANCOMYCIN RANDOM 16.9 UG/ML
[2017-10-31] MEDS: HumaLOG INSULIN (NovoLOG) PER UNIT SC ×3 (07:30→17:22)
[2017-10-31] MEDS: SENNA 8.6 MG TAB (SENOKOT) PO ×2 (07:50→07:53)
[2017-10-31] MEDS: TORSEMIDE 20 MG TAB PO (07:50)
[2017-10-31] MEDS: FAMOTIDINE 20 MG TAB PO (07:51)
[2017-10-31] MEDS: CALCIUM ACETATE 667 MG GELCAP PO ×3 (07:51→17:27)
[2017-10-31] MEDS: CANDESARTAN 4MG TABLET PO (07:51)
[2017-10-31] MEDS: SERTRALINE 100 MG TAB PO (07:51)
[2017-10-31] MEDS: ALPRAZolam 0.5 MG TAB PO ×3 (07:51→21:58)
[2017-10-31] MEDS: METOPROLOL TART 50 MG TAB PO ×2 (07:51→21:58)
[2017-10-31] MEDS: CALCITRIOL 0.25 MCG CAP (S0169) PO (07:51)
[2017-10-31] MEDS: ASPIRIN 81 MG ENTERIC TAB PO (07:51)
[2017-10-31] MEDS: CLOPIDOGREL 75 MG TAB PO (07:51)
[2017-10-31 08:20] LABS: BEDSIDE GLUCOSE 286 MG/DL (70-105)
[2017-10-31 08:20] LABS: BEDSIDE GLUCOSE 275 MG/DL (70-105)
[2017-10-31] MEDS: HEPARIN 1,000 UNITS/ML 10ML VIAL (FOR RADIOLOGY& DIALYSIS ONLY) IV (10:30)
[2017-10-31] MEDS: HEPARIN 1,000 UNITS/ML 10ML VIAL (FOR RADIOLOGY& DIALYSIS ONLY) XX (10:30)
[2017-10-31] MEDS ORDERED: DARBEPOETIN 100 MCG/0.5 ML *DIALYSIS* SYRINGE (J0882) IV (11:45)
[2017-10-31 12:46] LABS: BEDSIDE GLUCOSE 231 MG/DL (70-105)
[2017-10-31] MEDS: PIPERACILLIN/TAZOBACTAM SOD 2.25 GM in D5W MINI-BAG PLUS 50 ML IV ×2 (12:51→21:59)
[2017-10-31] MEDS: **VANCO AFTER HD** MISC XX (16:00)
[2017-10-31] MEDS: VANCOMYCIN HCL 1,000 MG, VIAL MATE ADAPTER 1 EACH in D5W 250 ML IV (16:21)
[2017-10-31 17:13] LABS: BEDSIDE GLUCOSE 150 MG/DL (70-105)
[2017-10-31] MEDS: ANEXSIA, NORCO 7.5MG/325MG TABLET(HYDROCODONE/APAP) PO ×2 (17:32→23:27)
[2017-10-31 20:30] LABS: BEDSIDE GLUCOSE 336 MG/DL (70-105)
[2017-10-31] MEDS: ATORVASTATIN 20 MG TAB PO (21:59)
[2017-10-31] MEDS: LEVEMIR (INSULIN DETEMIR) 1 UNITS/0.01ML SC (21:59)
[2017-11-01 01:32] LABS: BEDSIDE GLUCOSE CONFIRMATION 628 MG/DL (LESS THAN 200)
[2017-11-01] MEDS: HumaLOG INSULIN (NovoLOG) PER UNIT SC ×5 (02:24→21:30)
[2017-11-01 05:58] LABS: BASO # 0.1 10^3/uL (0.0-0.2); EOS # 0.1 10^3/uL (0.0-0.50); EOS % 2.2 % (0.0-3.0); HEMOGLOBIN 9.9 g/dl (12.0-15.5); IMMATURE GRANULOCYTE % 0.3 % (0-3.0); LYMPH # 1.4 10^3/uL (1.5-4.5); LYMPH % 23.4 % (24.0-44.0); MEAN CORPUSCULAR HEMOGLOBIN 24.4 pg (27.0-33.0); MEAN CORPUSCULAR HGB CONC 30.9 g/dl (32.0-36.5); MEAN CORPUSCULAR VOLUME 78.8 fl (80.0-96.0); MONO # 0.7 10^3/uL (0.0-0.8); MONO % 12.4 % (0.0-5.0); NEUTROPHILS # 3.6 10^3/uL (1.8-7.7); NEUTROPHILS % 60.7 % (36.0-66.0); PLATELET COUNT, AUTOMATED 357 10^3/uL (150-450); RED BLOOD COUNT 4.06 10^6/uL (4.00-5.40); RED CELL DISTRIBUTION WIDTH 21.8 % (11.5-14.5)
[2017-11-01 05:59] LABS: BEDSIDE GLUCOSE 245 MG/DL (70-105)
[2017-11-01 06:21] LABS: ANION GAP 10 MEQ/L (8-16); BLOOD UREA NITROGEN 32 MG/DL (7-18); CALCIUM LEVEL 7.5 MG/DL (8.5-10.1); CARBON DIOXIDE LEVEL 23 MEQ/L (21-32); CHLORIDE LEVEL 102 MEQ/L (98-107); CREATININE FOR GFR 3.18 MG/DL (0.55-1.30); GLOMERULAR FILTRATION RATE 16.1 (>51); GLUCOSE, FASTING 208 MG/DL (70-100); POTASSIUM SERUM 3.8 MEQ/L (3.5-5.1); SODIUM LEVEL 135 MEQ/L (136-145)
[2017-11-01] MEDS: LEVEMIR (INSULIN DETEMIR) 1 UNITS/0.01ML SC ×2 (08:37→21:30)
[2017-11-01] MEDS: SERTRALINE 100 MG TAB PO (08:37)
[2017-11-01] MEDS: TORSEMIDE 20 MG TAB PO (08:38)
[2017-11-01] MEDS: FAMOTIDINE 20 MG TAB PO (08:38)
[2017-11-01] MEDS: ASPIRIN 81 MG ENTERIC TAB PO (08:38)
[2017-11-01] MEDS: CALCIUM ACETATE 667 MG GELCAP PO ×3 (08:38→16:56)
[2017-11-01] MEDS: SENNA 8.6 MG TAB (SENOKOT) PO (08:38)
[2017-11-01] MEDS: CALCITRIOL 0.25 MCG CAP (S0169) PO (08:38)
[2017-11-01] MEDS: METOPROLOL TART 50 MG TAB PO ×2 (08:38→21:31)
[2017-11-01] MEDS: CLOPIDOGREL 75 MG TAB PO (08:38)
[2017-11-01] MEDS: ALPRAZolam 0.5 MG TAB PO ×3 (08:38→22:03)
[2017-11-01] MEDS: CANDESARTAN 4MG TABLET PO (08:38)
[2017-11-01 09:31] LABS: BEDSIDE GLUCOSE > 600 MG/DL (70-105)
[2017-11-01 09:31] LABS: BEDSIDE GLUCOSE > 600 MG/DL (70-105)
[2017-11-01] MEDS: PIPERACILLIN/TAZOBACTAM SOD 2.25 GM in D5W MINI-BAG PLUS 50 ML IV ×2 (09:35→21:31)
[2017-11-01] MEDS: ONDANSETRON 4 MG TAB (S0181) PO (09:35)
[2017-11-01] MEDS: **VANCO AFTER HD** MISC XX (15:21)
[2017-11-01] MEDS: METOCLOPRAMIDE INJ 10MG/2ML VIAL (J2765) IV ×2 (15:21→21:28)
[2017-11-01] MEDS: ATORVASTATIN 20 MG TAB PO (21:28)
[2017-11-01] MEDS: ANEXSIA, NORCO 7.5MG/325MG TABLET(HYDROCODONE/APAP) PO (21:32)
[2017-11-02] MEDS: HumaLOG INSULIN (NovoLOG) PER UNIT SC ×4 (01:53→17:30)
[2017-11-02 06:16] LABS: BASO % 0.7 % (0.0-1.0); EOS # 0.2 10^3/uL (0.0-0.50); EOS % 3.7 % (0.0-3.0); HEMATOCRIT 33.1 % (36.0-47.0); HEMOGLOBIN 10.1 g/dl (12.0-15.5); IMMATURE GRANULOCYTE % 0.6 % (0-3.0); LYMPH # 1.6 10^3/uL (1.5-4.5); LYMPH % 29.1 % (24.0-44.0); MEAN CORPUSCULAR HEMOGLOBIN 25.1 pg (27.0-33.0); MEAN CORPUSCULAR HGB CONC 30.5 g/dl (32.0-36.5); MEAN CORPUSCULAR VOLUME 82.1 fl (80.0-96.0); MONO # 0.7 10^3/uL (0.0-0.8); MONO % 13.7 % (0.0-5.0); NEUTROPHILS # 2.8 10^3/uL (1.8-7.7); NEUTROPHILS % 52.2 % (36.0-66.0); PLATELET COUNT, AUTOMATED 346 10^3/uL (150-450); RED BLOOD COUNT 4.03 10^6/uL (4.00-5.40); RED CELL DISTRIBUTION WIDTH 22.1 % (11.5-14.5); WHITE BLOOD COUNT 5.4 10^3/uL (4.0-10.0)
[2017-11-02] MEDS: FAMOTIDINE 20 MG TAB PO (06:27)
[2017-11-02] MEDS: CALCIUM ACETATE 667 MG GELCAP PO ×3 (06:27→18:05)
[2017-11-02] MEDS: TORSEMIDE 20 MG TAB PO (06:27)
[2017-11-02] MEDS: CLOPIDOGREL 75 MG TAB PO (06:27)
[2017-11-02] MEDS: ASPIRIN 81 MG ENTERIC TAB PO (06:27)
[2017-11-02] MEDS: SERTRALINE 100 MG TAB PO (06:27)
[2017-11-02] MEDS: CALCITRIOL 0.25 MCG CAP (S0169) PO (06:28)
[2017-11-02] MEDS: METOCLOPRAMIDE INJ 10MG/2ML VIAL (J2765) IV ×3 (06:28→22:13)
[2017-11-02] MEDS: ALPRAZolam 0.5 MG TAB PO ×3 (06:28→22:13)
[2017-11-02] MEDS: CANDESARTAN 4MG TABLET PO (06:28)
[2017-11-02] MEDS: METOPROLOL TART 50 MG TAB PO ×2 (06:29→22:12)
[2017-11-02 06:40] LABS: ANION GAP 9 MEQ/L (8-16); BLOOD UREA NITROGEN 37 MG/DL (7-18); CALCIUM LEVEL 7.5 MG/DL (8.5-10.1); CARBON DIOXIDE LEVEL 25 MEQ/L (21-32); CHLORIDE LEVEL 103 MEQ/L (98-107); CREATININE FOR GFR 3.66 MG/DL (0.55-1.30); GLOMERULAR FILTRATION RATE 13.7 (>51); GLUCOSE, FASTING 85 MG/DL (70-100); POTASSIUM SERUM 3.9 MEQ/L (3.5-5.1); SODIUM LEVEL 137 MEQ/L (136-145)
[2017-11-02] MEDS: GLUCOSE 4 GM CHEW TABLET PO ×4 (07:39→09:15)
[2017-11-02] MEDS: LEVEMIR (INSULIN DETEMIR) 1 UNITS/0.01ML SC ×2 (08:10→21:00)
[2017-11-02 08:19] LABS: BEDSIDE GLUCOSE 124 MG/DL (70-105)
[2017-11-02 08:19] LABS: BEDSIDE GLUCOSE 102 MG/DL (70-105)
[2017-11-02 08:19] LABS: BEDSIDE GLUCOSE 78 MG/DL (70-105)
[2017-11-02 08:19] LABS: BEDSIDE GLUCOSE 64 MG/DL (70-105)
[2017-11-02 08:19] LABS: BEDSIDE GLUCOSE 23 MG/DL (70-105)
[2017-11-02 08:19] LABS: BEDSIDE GLUCOSE 476 MG/DL (70-105)
[2017-11-02 08:19] LABS: BEDSIDE GLUCOSE 252 MG/DL (70-105)
[2017-11-02 08:19] LABS: BEDSIDE GLUCOSE 62 MG/DL (70-105)
[2017-11-02 08:21] LABS: BEDSIDE GLUCOSE CONFIRMATION 50 MG/DL (LESS THAN 200)
[2017-11-02 08:32] LABS: BEDSIDE GLUCOSE 110 MG/DL (70-105)
[2017-11-02] MEDS: HEPARIN 1,000 UNITS/ML 10ML VIAL (FOR RADIOLOGY& DIALYSIS ONLY) XX (09:45)
[2017-11-02] MEDS: HEPARIN 1,000 UNITS/ML 10ML VIAL (FOR RADIOLOGY& DIALYSIS ONLY) IV (09:45)
[2017-11-02 12:56] LABS: BEDSIDE GLUCOSE 132 MG/DL (70-105)
[2017-11-02] MEDS: PIPERACILLIN/TAZOBACTAM SOD 2.25 GM in D5W MINI-BAG PLUS 50 ML IV ×2 (13:08→22:13)
[2017-11-02 15:35] LABS: BEDSIDE GLUCOSE 143 MG/DL (70-105)
[2017-11-02] MEDS: **VANCO AFTER HD** MISC XX (16:00)
[2017-11-02] MEDS: VANCOMYCIN HCL 1,000 MG, VIAL MATE ADAPTER 1 EACH in D5W 250 ML IV (16:22)
[2017-11-02] MEDS: ANEXSIA, NORCO 7.5MG/325MG TABLET(HYDROCODONE/APAP) PO ×2 (16:23→23:38)
[2017-11-02 17:26] LABS: BEDSIDE GLUCOSE 354 MG/DL (70-105)
[2017-11-02 21:16] LABS: BEDSIDE GLUCOSE 314 MG/DL (70-105)
[2017-11-02] MEDS: ATORVASTATIN 20 MG TAB PO (22:12)
[2017-11-03 00:22] LABS: BEDSIDE GLUCOSE 419 MG/DL (70-105)
[2017-11-03] MEDS: HumaLOG INSULIN (NovoLOG) PER UNIT SC ×5 (00:47→18:00)
[2017-11-03] MEDS: SENNA 8.6 MG TAB (SENOKOT) PO (00:47)
[2017-11-03 05:46] LABS: BEDSIDE GLUCOSE 244 MG/DL (70-105)
[2017-11-03] MEDS: ONDANSETRON 4MG/2ML VIAL (J2405) IV (06:14)
[2017-11-03] MEDS: ANEXSIA, NORCO 7.5MG/325MG TABLET(HYDROCODONE/APAP) PO (06:14)
[2017-11-03 07:14] LABS: BASO # 0.1 10^3/uL (0.0-0.2); EOS # 0.2 10^3/uL (0.0-0.50); EOS % 2.8 % (0.0-3.0); HEMATOCRIT 34.2 % (36.0-47.0); HEMOGLOBIN 10.3 g/dl (12.0-15.5); IMMATURE GRANULOCYTE % 0.7 % (0-3.0); LYMPH # 1.8 10^3/uL (1.5-4.5); LYMPH % 29.7 % (24.0-44.0); MEAN CORPUSCULAR HEMOGLOBIN 24.5 pg (27.0-33.0); MEAN CORPUSCULAR HGB CONC 30.1 g/dl (32.0-36.5); MEAN CORPUSCULAR VOLUME 81.4 fl (80.0-96.0); MONO # 0.7 10^3/uL (0.0-0.8); MONO % 10.7 % (0.0-5.0); NEUTROPHILS # 3.3 10^3/uL (1.8-7.7); NEUTROPHILS % 55.1 % (36.0-66.0); PLATELET COUNT, AUTOMATED 354 10^3/uL (150-450); RED CELL DISTRIBUTION WIDTH 22.8 % (11.5-14.5); WHITE BLOOD COUNT 6.1 10^3/uL (4.0-10.0)
[2017-11-03 07:27] LABS: ANION GAP 9 MEQ/L (8-16); BLOOD UREA NITROGEN 29 MG/DL (7-18); CALCIUM LEVEL 7.6 MG/DL (8.5-10.1); CARBON DIOXIDE LEVEL 25 MEQ/L (21-32); CHLORIDE LEVEL 102 MEQ/L (98-107); CREATININE FOR GFR 2.97 MG/DL (0.55-1.30); GLOMERULAR FILTRATION RATE 17.4 (>51); GLUCOSE, FASTING 234 MG/DL (70-100); POTASSIUM SERUM 4.4 MEQ/L (3.5-5.1); SODIUM LEVEL 136 MEQ/L (136-145)
[2017-11-03] MEDS: CALCIUM ACETATE 667 MG GELCAP PO ×3 (08:00→18:00)
[2017-11-03] MEDS: FAMOTIDINE 20 MG TAB PO (08:57)
[2017-11-03] MEDS: CANDESARTAN 4MG TABLET PO (08:58)
[2017-11-03] MEDS: METOPROLOL TART 50 MG TAB PO ×2 (08:58→21:32)
[2017-11-03] MEDS: TORSEMIDE 20 MG TAB PO (08:58)
[2017-11-03] MEDS: CALCITRIOL 0.25 MCG CAP (S0169) PO (08:58)
[2017-11-03] MEDS: SERTRALINE 100 MG TAB PO (08:58)
[2017-11-03] MEDS: ALPRAZolam 0.5 MG TAB PO ×3 (08:58→21:28)
[2017-11-03] MEDS: METOCLOPRAMIDE INJ 10MG/2ML VIAL (J2765) IV ×3 (08:59→21:28)
[2017-11-03] MEDS ORDERED: D5W/0.9% SODIUM CHLORIDE 1,000 ML IV (09:00)
[2017-11-03 09:42] LABS: INR 1.06; PARTIAL THROMBOPLASTIN TIME 27.2 SECONDS (25.4-37.6); PROTHROMBIN TIME 13.9 SECONDS (12.1-14.4)
[2017-11-03 09:58] LABS: BEDSIDE GLUCOSE 300 MG/DL (70-105)
[2017-11-03 11:57] LABS: BEDSIDE GLUCOSE 367 MG/DL (70-105)
[2017-11-03] MEDS: ASPIRIN 81 MG ENTERIC TAB PO (12:15)
[2017-11-03] MEDS: PANTOPRAZOLE 20 MG TAB PO (12:15)
[2017-11-03] MEDS: CLOPIDOGREL 75 MG TAB PO (12:15)
[2017-11-03] MEDS: PIPERACILLIN/TAZOBACTAM SOD 2.25 GM in D5W MINI-BAG PLUS 50 ML IV ×2 (12:16→21:29)
[2017-11-03] MEDS: NS 1,000 ML IV (12:18)
[2017-11-03 14:57] LABS: BEDSIDE GLUCOSE 233 MG/DL (70-105)
[2017-11-03] MEDS: **VANCO AFTER HD** MISC XX (16:00)
[2017-11-03] MEDS ORDERED: PROPOFOL 200 MG/20 ML VIAL As Ordered (16:57)
[2017-11-03] MEDS ORDERED: MIDAZOLAM INJ 2 MG/2 ML VIAL (J2250) As Ordered (16:57)
[2017-11-03] MEDS ORDERED: LIDOCAINE 2% INJ 100 MG/5 ML SDV (FOR ANES.) As Ordered (16:57)
[2017-11-03] MEDS ORDERED: fentaNYL 100 MCG/2 ML INJECTION (J3010) As Ordered (16:57)
[2017-11-03 17:03] LABS: BEDSIDE GLUCOSE 249 MG/DL (70-105)
[2017-11-03] MEDS ORDERED: KETAMINE HCL 200 MG/20 ML VIAL As Ordered (17:29)
[2017-11-03] MEDS ORDERED: ONDANSETRON 4MG/2ML VIAL (J2405) As Ordered (17:42)
[2017-11-03] MEDS: LIDOCAINE 1% SDV INJ 30 ML VIAL As Ordered (17:56)
[2017-11-03] MEDS: BUPIVACAINE HCL 0.5% 30 ML VIAL As Ordered (17:56)
[2017-11-03 18:25] LABS: BEDSIDE GLUCOSE 282 MG/DL (70-105)
[2017-11-03] MEDS ORDERED: METOCLOPRAMIDE INJ 10MG/2ML VIAL (J2765) IV (18:30)
[2017-11-03] MEDS ORDERED: fentaNYL 100 MCG/2 ML INJECTION (J3010) IV (18:30)
[2017-11-03] MEDS ORDERED: ONDANSETRON 4MG/2ML VIAL (J2405) IV (18:30)
[2017-11-03] MEDS ORDERED: MEPERIDINE INJ 25 MG/ML VIAL (J2175) IV (18:30)
[2017-11-03] MEDS: LR 1,000 ML IV (18:30)
[2017-11-03] MEDS ORDERED: PERCOCET 5MG/325MG TAB As Ordered (18:43)
[2017-11-03] MEDS: PERCOCET 5MG/325MG TAB PO (18:50)
[2017-11-03] MEDS: ATORVASTATIN 20 MG TAB PO (21:28)
[2017-11-03 22:17] LABS: BEDSIDE GLUCOSE 566 MG/DL (70-105)
[2017-11-03] MEDS: NORCO, ANEXSIA 5/325MG TABLET (HYDROcodone/ACETAMINOPHEN) PO (22:41)
[2017-11-03] MEDS: LEVEMIR (INSULIN DETEMIR) 1 UNITS/0.01ML SC (22:41)
[2017-11-04 00:51] LABS: BEDSIDE GLUCOSE CONFIRMATION 689 MG/DL (LESS THAN 200)
[2017-11-04] MEDS: HumaLOG INSULIN (NovoLOG) PER UNIT SC ×6 (01:13→20:47)
[2017-11-04 02:59] LABS: BEDSIDE GLUCOSE 539 MG/DL (70-105)
[2017-11-04 05:50] LABS: BEDSIDE GLUCOSE 319 MG/DL (70-105)
[2017-11-04 06:34] LABS: BASO # 0.1 10^3/uL (0.0-0.2); BASO % 1.3 % (0.0-1.0); EOS # 0.1 10^3/uL (0.0-0.50); EOS % 2.3 % (0.0-3.0); HEMATOCRIT 34.1 % (36.0-47.0); HEMOGLOBIN 10.1 g/dl (12.0-15.5); IMMATURE GRANULOCYTE % 0.8 % (0-3.0); LYMPH # 1.8 10^3/uL (1.5-4.5); LYMPH % 28.3 % (24.0-44.0); MEAN CORPUSCULAR HEMOGLOBIN 24.9 pg (27.0-33.0); MEAN CORPUSCULAR HGB CONC 29.6 g/dl (32.0-36.5); MEAN CORPUSCULAR VOLUME 84.2 fl (80.0-96.0); MONO # 0.8 10^3/uL (0.0-0.8); MONO % 12.1 % (0.0-5.0); NEUTROPHILS # 3.4 10^3/uL (1.8-7.7); NEUTROPHILS % 55.2 % (36.0-66.0); PLATELET COUNT, AUTOMATED 340 10^3/uL (150-450); RED BLOOD COUNT 4.05 10^6/uL (4.00-5.40); RED CELL DISTRIBUTION WIDTH 22.8 % (11.5-14.5); WHITE BLOOD COUNT 6.2 10^3/uL (4.0-10.0)
[2017-11-04] MEDS: CANDESARTAN 4MG TABLET PO (06:44)
[2017-11-04] MEDS: ALPRAZolam 0.5 MG TAB PO ×3 (06:44→20:35)
[2017-11-04] MEDS: TORSEMIDE 20 MG TAB PO (06:44)
[2017-11-04] MEDS: CALCITRIOL 0.25 MCG CAP (S0169) PO (06:44)
[2017-11-04] MEDS: CALCIUM ACETATE 667 MG GELCAP PO ×3 (06:44→16:48)
[2017-11-04] MEDS: METOCLOPRAMIDE INJ 10MG/2ML VIAL (J2765) IV ×3 (06:44→20:39)
[2017-11-04] MEDS: SERTRALINE 100 MG TAB PO (06:45)
[2017-11-04] MEDS: CLOPIDOGREL 75 MG TAB PO (06:45)
[2017-11-04] MEDS: ASPIRIN 81 MG ENTERIC TAB PO (06:45)
[2017-11-04] MEDS: PANTOPRAZOLE 20 MG TAB PO (06:45)
[2017-11-04] MEDS: METOPROLOL TART 50 MG TAB PO ×2 (06:48→20:38)
[2017-11-04 07:02] LABS: ANION GAP 11 MEQ/L (8-16); BLOOD UREA NITROGEN 38 MG/DL (7-18); CALCIUM LEVEL 7.2 MG/DL (8.5-10.1); CARBON DIOXIDE LEVEL 22 MEQ/L (21-32); CHLORIDE LEVEL 101 MEQ/L (98-107); CREATININE FOR GFR 3.63 MG/DL (0.55-1.30); GLOMERULAR FILTRATION RATE 13.8 (>51); GLUCOSE, FASTING 295 MG/DL (70-100); POTASSIUM SERUM 4.2 MEQ/L (3.5-5.1); SODIUM LEVEL 134 MEQ/L (136-145); VANCOMYCIN RANDOM 21.3 UG/ML
[2017-11-04 08:39] LABS: BEDSIDE GLUCOSE 168 MG/DL (70-105)
[2017-11-04] MEDS: ANEXSIA, NORCO 7.5MG/325MG TABLET(HYDROCODONE/APAP) PO ×2 (08:47→15:53)
[2017-11-04] MEDS: HEPARIN 1,000 UNITS/ML 10ML VIAL (FOR RADIOLOGY& DIALYSIS ONLY) IV (11:00)
[2017-11-04 13:14] LABS: BEDSIDE GLUCOSE 267 MG/DL (70-105)
[2017-11-04] MEDS: PIPERACILLIN/TAZOBACTAM SOD 2.25 GM in D5W MINI-BAG PLUS 50 ML IV ×2 (13:33→22:00)
[2017-11-04] MEDS: **VANCO AFTER HD** MISC XX (15:54)
[2017-11-04] MEDS: VANCOMYCIN HCL 1,000 MG, VIAL MATE ADAPTER 1 EACH in D5W 250 ML IV (15:54)
[2017-11-04 16:46] LABS: BEDSIDE GLUCOSE 205 MG/DL (70-105)
[2017-11-04] MEDS: SENNA 8.6 MG TAB (SENOKOT) PO (20:35)
[2017-11-04] MEDS: ATORVASTATIN 20 MG TAB PO (20:38)
[2017-11-04] MEDS: LEVEMIR (INSULIN DETEMIR) 1 UNITS/0.01ML SC (20:42)
[2017-11-04 20:55] LABS: BEDSIDE GLUCOSE 164 MG/DL (70-105)
[2017-11-04] MEDS: NORCO, ANEXSIA 5/325MG TABLET (HYDROcodone/ACETAMINOPHEN) PO (22:01)
[2017-11-05] MEDS: NORCO, ANEXSIA 5/325MG TABLET (HYDROcodone/ACETAMINOPHEN) PO ×3 (03:50→17:44)
[2017-11-05 08:33] LABS: BEDSIDE GLUCOSE 216 MG/DL (70-105)
[2017-11-05] MEDS: HumaLOG INSULIN (NovoLOG) PER UNIT SC ×4 (08:52→20:47)
[2017-11-05] MEDS: METOCLOPRAMIDE INJ 10MG/2ML VIAL (J2765) IV (08:53)
[2017-11-05] MEDS: TORSEMIDE 20 MG TAB PO (08:53)
[2017-11-05] MEDS: CALCIUM ACETATE 667 MG GELCAP PO ×3 (08:54→17:43)
[2017-11-05] MEDS: PANTOPRAZOLE 20 MG TAB PO (08:54)
[2017-11-05] MEDS: CALCITRIOL 0.25 MCG CAP (S0169) PO (08:54)
[2017-11-05] MEDS: CLOPIDOGREL 75 MG TAB PO (08:55)
[2017-11-05] MEDS: ASPIRIN 81 MG ENTERIC TAB PO (08:55)
[2017-11-05] MEDS: CANDESARTAN 4MG TABLET PO (08:55)
[2017-11-05] MEDS: SERTRALINE 100 MG TAB PO (08:55)
[2017-11-05] MEDS: ALPRAZolam 0.5 MG TAB PO ×3 (08:56→20:44)
[2017-11-05] MEDS: METOPROLOL TART 50 MG TAB PO ×2 (08:57→20:47)
[2017-11-05 13:42] LABS: BEDSIDE GLUCOSE 220 MG/DL (70-105)
[2017-11-05] MEDS: **VANCO AFTER HD** MISC XX (16:00)
[2017-11-05 16:55] LABS: BEDSIDE GLUCOSE 184 MG/DL (70-105)
[2017-11-05] MEDS: ATORVASTATIN 20 MG TAB PO (20:44)
[2017-11-05] MEDS: LEVEMIR (INSULIN DETEMIR) 1 UNITS/0.01ML SC (20:45)
[2017-11-05 22:08] LABS: BEDSIDE GLUCOSE 220 MG/DL (70-105)
[2017-11-05 22:08] LABS: BEDSIDE GLUCOSE 208 MG/DL (70-105)
[2017-11-06] MEDS: NORCO, ANEXSIA 5/325MG TABLET (HYDROcodone/ACETAMINOPHEN) PO ×4 (00:12→22:05)
[2017-11-06] MEDS: ANEXSIA, NORCO 7.5MG/325MG TABLET(HYDROCODONE/APAP) PO (02:23)
[2017-11-06 06:35] LABS: BEDSIDE GLUCOSE 353 MG/DL (70-105)
[2017-11-06 06:53] LABS: HEMOGLOBIN 9.6 g/dl (12.0-15.5); MEAN CORPUSCULAR HEMOGLOBIN 24.7 pg (27.0-33.0); MEAN CORPUSCULAR VOLUME 82.3 fl (80.0-96.0); PLATELET COUNT, AUTOMATED 371 10^3/uL (150-450); RED BLOOD COUNT 3.89 10^6/uL (4.00-5.40); RED CELL DISTRIBUTION WIDTH 23.4 % (11.5-14.5); WHITE BLOOD COUNT 6.8 10^3/uL (4.0-10.0)
[2017-11-06 07:02] LABS: ANION GAP 10 MEQ/L (8-16); BLOOD UREA NITROGEN 35 MG/DL (7-18); CALCIUM LEVEL 7.6 MG/DL (8.5-10.1); CARBON DIOXIDE LEVEL 23 MEQ/L (21-32); CHLORIDE LEVEL 101 MEQ/L (98-107); CREATININE FOR GFR 3.68 MG/DL (0.55-1.30); GLOMERULAR FILTRATION RATE 13.6 (>51); GLUCOSE, FASTING 341 MG/DL (70-100); POTASSIUM SERUM 5.1 MEQ/L (3.5-5.1); SODIUM LEVEL 134 MEQ/L (136-145)
[2017-11-06] MEDS: CALCITRIOL 0.25 MCG CAP (S0169) PO (08:42)
[2017-11-06] MEDS: TORSEMIDE 20 MG TAB PO (08:43)
[2017-11-06] MEDS: SERTRALINE 100 MG TAB PO (08:43)
[2017-11-06] MEDS: CALCIUM ACETATE 667 MG GELCAP PO ×3 (08:44→18:07)
[2017-11-06] MEDS: PANTOPRAZOLE 20 MG TAB PO (08:44)
[2017-11-06] MEDS: CLOPIDOGREL 75 MG TAB PO (08:44)
[2017-11-06] MEDS: ASPIRIN 81 MG ENTERIC TAB PO (08:44)
[2017-11-06] MEDS: ALPRAZolam 0.5 MG TAB PO ×3 (08:45→21:48)
[2017-11-06] MEDS: METOPROLOL TART 50 MG TAB PO ×2 (08:49→21:48)
[2017-11-06] MEDS: HumaLOG INSULIN (NovoLOG) PER UNIT SC ×4 (08:49→21:55)
[2017-11-06] MEDS: CANDESARTAN 4MG TABLET PO (09:00)
[2017-11-06] MEDS: SENNA 8.6 MG TAB (SENOKOT) PO (09:09)
[2017-11-06] MEDS ORDERED: PILL CRUSHER/CUTTER 1 EACH XX (09:15)
[2017-11-06 12:03] LABS: BEDSIDE GLUCOSE > 600 MG/DL (70-105)
[2017-11-06 12:17] LABS: BEDSIDE GLUCOSE 223 MG/DL (70-105)
[2017-11-06] MEDS: **VANCO AFTER HD** MISC XX (16:00)
[2017-11-06] MEDS: GLUCOSE 4 GM CHEW TABLET PO (17:33)
[2017-11-06 20:42] LABS: BEDSIDE GLUCOSE 85 MG/DL (70-105)
[2017-11-06 20:42] LABS: BEDSIDE GLUCOSE 58 MG/DL (70-105)
[2017-11-06] MEDS: ATORVASTATIN 20 MG TAB PO (21:48)
[2017-11-06] MEDS: LEVEMIR (INSULIN DETEMIR) 1 UNITS/0.01ML SC (21:48)
[2017-11-06 22:22] LABS: BEDSIDE GLUCOSE 205 MG/DL (70-105)
[2017-11-07 06:08] LABS: BASO # 0.1 10^3/uL (0.0-0.2); BASO % 1.1 % (0.0-1.0); EOS # 0.2 10^3/uL (0.0-0.50); EOS % 2.2 % (0.0-3.0); HEMATOCRIT 33.9 % (36.0-47.0); HEMOGLOBIN 10.1 g/dl (12.0-15.5); IMMATURE GRANULOCYTE % 0.7 % (0-3.0); LYMPH # 1.7 10^3/uL (1.5-4.5); LYMPH % 23.6 % (24.0-44.0); MEAN CORPUSCULAR HEMOGLOBIN 24.9 pg (27.0-33.0); MEAN CORPUSCULAR HGB CONC 29.8 g/dl (32.0-36.5); MEAN CORPUSCULAR VOLUME 83.7 fl (80.0-96.0); MONO # 0.8 10^3/uL (0.0-0.8); NEUTROPHILS # 4.5 10^3/uL (1.8-7.7); NEUTROPHILS % 61.4 % (36.0-66.0); PLATELET COUNT, AUTOMATED 395 10^3/uL (150-450); RED BLOOD COUNT 4.05 10^6/uL (4.00-5.40); RED CELL DISTRIBUTION WIDTH 23.9 % (11.5-14.5); WHITE BLOOD COUNT 7.3 10^3/uL (4.0-10.0)
[2017-11-07 06:35] LABS: ANION GAP 8 MEQ/L (8-16); BLOOD UREA NITROGEN 42 MG/DL (7-18); CALCIUM LEVEL 8.1 MG/DL (8.5-10.1); CARBON DIOXIDE LEVEL 26 MEQ/L (21-32); CHLORIDE LEVEL 101 MEQ/L (98-107); CREATININE FOR GFR 4.23 MG/DL (0.55-1.30); GLOMERULAR FILTRATION RATE 11.6 (>51); GLUCOSE, FASTING 217 MG/DL (70-100); POTASSIUM SERUM 5.1 MEQ/L (3.5-5.1); SODIUM LEVEL 135 MEQ/L (136-145)
[2017-11-07] MEDS: CANDESARTAN 4MG TABLET PO (06:50)
[2017-11-07] MEDS: TORSEMIDE 20 MG TAB PO (06:51)
[2017-11-07] MEDS: CALCITRIOL 0.25 MCG CAP (S0169) PO (06:51)
[2017-11-07] MEDS: METOPROLOL TART 50 MG TAB PO ×2 (06:51→20:39)
[2017-11-07] MEDS: ALPRAZolam 0.5 MG TAB PO ×3 (06:51→20:39)
[2017-11-07] MEDS: PANTOPRAZOLE 20 MG TAB PO (06:51)
[2017-11-07] MEDS: CALCIUM CARBONATE 500 MG CHEW U/D PO ×2 (06:51→21:34)
[2017-11-07] MEDS: ASPIRIN 81 MG ENTERIC TAB PO (06:52)
[2017-11-07] MEDS: SERTRALINE 100 MG TAB PO (06:52)
[2017-11-07] MEDS: CLOPIDOGREL 75 MG TAB PO (06:52)
[2017-11-07] MEDS: CALCIUM ACETATE 667 MG GELCAP PO ×3 (08:00→17:57)
[2017-11-07] MEDS: HumaLOG INSULIN (NovoLOG) PER UNIT SC ×4 (08:29→20:38)
[2017-11-07] MEDS: oxyCODONE 5MG TAB PO (08:30)
[2017-11-07] MEDS: HEPARIN 1,000 UNITS/ML 10ML VIAL (FOR RADIOLOGY& DIALYSIS ONLY) XX (12:15)
[2017-11-07] MEDS: HEPARIN 1,000 UNITS/ML 10ML VIAL (FOR RADIOLOGY& DIALYSIS ONLY) IV (12:15)
[2017-11-07] MEDS: **VANCO AFTER HD** MISC XX (13:08)
[2017-11-07] MEDS ORDERED: GLUCOSE 4 GM CHEW TABLET As Ordered (14:42)
[2017-11-07] MEDS: GLUCOSE 4 GM CHEW TABLET PO ×2 (14:45→15:22)
[2017-11-07] MEDS: NORCO, ANEXSIA 5/325MG TABLET (HYDROcodone/ACETAMINOPHEN) PO ×2 (15:20→21:34)
[2017-11-07 17:36] LABS: BEDSIDE GLUCOSE 139 MG/DL (70-105)
[2017-11-07 17:36] LABS: BEDSIDE GLUCOSE 49 MG/DL (70-105)
[2017-11-07 17:36] LABS: BEDSIDE GLUCOSE 76 MG/DL (70-105)
[2017-11-07] MEDS: LEVEMIR (INSULIN DETEMIR) 1 UNITS/0.01ML SC (20:38)
[2017-11-07] MEDS: ATORVASTATIN 20 MG TAB PO (20:39)
[2017-11-08 06:53] LABS: BASO # 0.1 10^3/uL (0.0-0.2); BASO % 0.7 % (0.0-1.0); EOS # 0.1 10^3/uL (0.0-0.50); EOS % 1.7 % (0.0-3.0); HEMATOCRIT 32.3 % (36.0-47.0); HEMOGLOBIN 9.7 g/dl (12.0-15.5); IMMATURE GRANULOCYTE % 0.6 % (0-3.0); LYMPH # 1.5 10^3/uL (1.5-4.5); LYMPH % 20.3 % (24.0-44.0); MEAN CORPUSCULAR HEMOGLOBIN 24.9 pg (27.0-33.0); MONO # 0.8 10^3/uL (0.0-0.8); MONO % 11.7 % (0.0-5.0); NEUTROPHILS # 4.7 10^3/uL (1.8-7.7); PLATELET COUNT, AUTOMATED 406 10^3/uL (150-450); RED BLOOD COUNT 3.89 10^6/uL (4.00-5.40); RED CELL DISTRIBUTION WIDTH 24.1 % (11.5-14.5); WHITE BLOOD COUNT 7.2 10^3/uL (4.0-10.0)
[2017-11-08] MEDS: SENNA 8.6 MG TAB (SENOKOT) PO (06:53)
[2017-11-08] MEDS: NORCO, ANEXSIA 5/325MG TABLET (HYDROcodone/ACETAMINOPHEN) PO ×3 (06:54→22:23)
[2017-11-08 07:12] LABS: ANION GAP 8 MEQ/L (8-16); BLOOD UREA NITROGEN 26 MG/DL (7-18); CALCIUM LEVEL 7.9 MG/DL (8.5-10.1); CARBON DIOXIDE LEVEL 27 MEQ/L (21-32); CHLORIDE LEVEL 101 MEQ/L (98-107); CREATININE FOR GFR 3.14 MG/DL (0.55-1.30); GLOMERULAR FILTRATION RATE 16.3 (>51); GLUCOSE, FASTING 201 MG/DL (70-100); POTASSIUM SERUM 4.3 MEQ/L (3.5-5.1); SODIUM LEVEL 136 MEQ/L (136-145)
[2017-11-08] MEDS: IPRATROPIUM 0.5MG/ALBUTEROL 2.5MG INH SOL UD 3ML (DUONEB)(J7620) NEB (07:22)
[2017-11-08] MEDS: CALCIUM ACETATE 667 MG GELCAP PO ×3 (07:57→17:55)
[2017-11-08] MEDS: HumaLOG INSULIN (NovoLOG) PER UNIT SC ×4 (07:57→22:22)
[2017-11-08] MEDS: ASPIRIN 81 MG ENTERIC TAB PO (07:59)
[2017-11-08] MEDS: SERTRALINE 100 MG TAB PO (07:59)
[2017-11-08] MEDS: TORSEMIDE 20 MG TAB PO (08:03)
[2017-11-08] MEDS: PANTOPRAZOLE 20 MG TAB PO (08:04)
[2017-11-08] MEDS: ALPRAZolam 0.5 MG TAB PO ×3 (08:04→22:23)
[2017-11-08] MEDS: METOPROLOL TART 50 MG TAB PO ×2 (08:04→22:24)
[2017-11-08] MEDS: CLOPIDOGREL 75 MG TAB PO (08:04)
[2017-11-08] MEDS: CALCITRIOL 0.25 MCG CAP (S0169) PO (08:05)
[2017-11-08] MEDS: CANDESARTAN 4MG TABLET PO (08:09)
[2017-11-08 08:18] LABS: BEDSIDE GLUCOSE 458 MG/DL (70-105)
[2017-11-08 11:41] LABS: BEDSIDE GLUCOSE 280 MG/DL (70-105)
[2017-11-08] MEDS: **VANCO AFTER HD** MISC XX (16:00)
[2017-11-08 22:03] LABS: BEDSIDE GLUCOSE 117 MG/DL (70-105)
[2017-11-08 22:04] LABS: BEDSIDE GLUCOSE 309 MG/DL (70-105)
[2017-11-08] MEDS: LEVEMIR (INSULIN DETEMIR) 1 UNITS/0.01ML SC (22:22)
[2017-11-08] MEDS: ATORVASTATIN 20 MG TAB PO (22:23)
[2017-11-09 06:19] LABS: BASO # 0.1 10^3/uL (0.0-0.2); EOS # 0.1 10^3/uL (0.0-0.50); EOS % 1.7 % (0.0-3.0); HEMATOCRIT 30.3 % (36.0-47.0); HEMOGLOBIN 9.2 g/dl (12.0-15.5); IMMATURE GRANULOCYTE % 0.7 % (0-3.0); LYMPH # 1.4 10^3/uL (1.5-4.5); LYMPH % 22.4 % (24.0-44.0); MEAN CORPUSCULAR HEMOGLOBIN 24.7 pg (27.0-33.0); MEAN CORPUSCULAR HGB CONC 30.4 g/dl (32.0-36.5); MEAN CORPUSCULAR VOLUME 81.5 fl (80.0-96.0); MONO # 0.7 10^3/uL (0.0-0.8); NEUTROPHILS # 3.8 10^3/uL (1.8-7.7); NEUTROPHILS % 62.2 % (36.0-66.0); PLATELET COUNT, AUTOMATED 392 10^3/uL (150-450); RED BLOOD COUNT 3.72 10^6/uL (4.00-5.40); RED CELL DISTRIBUTION WIDTH 24.2 % (11.5-14.5); WHITE BLOOD COUNT 6.1 10^3/uL (4.0-10.0)
[2017-11-09 06:40] LABS: ANION GAP 8 MEQ/L (8-16); BLOOD UREA NITROGEN 37 MG/DL (7-18); CALCIUM LEVEL 7.4 MG/DL (8.5-10.1); CARBON DIOXIDE LEVEL 24 MEQ/L (21-32); CHLORIDE LEVEL 100 MEQ/L (98-107); CREATININE FOR GFR 4.08 MG/DL (0.55-1.30); GLOMERULAR FILTRATION RATE 12.1 (>51); POTASSIUM SERUM 4.9 MEQ/L (3.5-5.1); SODIUM LEVEL 132 MEQ/L (136-145); VANCOMYCIN RANDOM 22.5 UG/ML
[2017-11-09 06:53] LABS: GLUCOSE, FASTING 452 MG/DL (70-100)
[2017-11-09] MEDS: HumaLOG INSULIN (NovoLOG) PER UNIT SC ×4 (07:30→21:00)
[2017-11-09] MEDS: CALCIUM ACETATE 667 MG GELCAP PO ×4 (08:00→17:25)
[2017-11-09] MEDS: HumaLOG 75/25 MIX INSULIN PER UNIT SC (08:00)
[2017-11-09] MEDS: TORSEMIDE 20 MG TAB PO (08:15)
[2017-11-09] MEDS: SERTRALINE 100 MG TAB PO (08:15)
[2017-11-09] MEDS: CANDESARTAN 4MG TABLET PO (08:15)
[2017-11-09] MEDS: CALCITRIOL 0.25 MCG CAP (S0169) PO (08:15)
[2017-11-09] MEDS: PANTOPRAZOLE 20 MG TAB PO (08:16)
[2017-11-09] MEDS: ALPRAZolam 0.5 MG TAB PO ×3 (08:16→22:17)
[2017-11-09] MEDS: METOPROLOL TART 50 MG TAB PO ×2 (08:16→22:19)
[2017-11-09] MEDS: HEPARIN 1,000 UNITS/ML 10ML VIAL (FOR RADIOLOGY& DIALYSIS ONLY) XX (10:00)
[2017-11-09] MEDS: HEPARIN 1,000 UNITS/ML 10ML VIAL (FOR RADIOLOGY& DIALYSIS ONLY) IV (10:00)
[2017-11-09] MEDS: VANCOMYCIN HCL 1,000 MG, VIAL MATE ADAPTER 1 EACH in D5W 250 ML IV (12:32)
[2017-11-09] MEDS: **VANCO AFTER HD** MISC XX (12:33)
[2017-11-09 14:14] LABS: BEDSIDE GLUCOSE 75 MG/DL (70-105)
[2017-11-09] MEDS: GLUCOSE 4 GM CHEW TABLET PO (14:18)
[2017-11-09 14:47] LABS: BEDSIDE GLUCOSE 75 MG/DL (70-105)
[2017-11-09 15:00] LABS: BEDSIDE GLUCOSE 66 MG/DL (70-105)
[2017-11-09 15:22] LABS: BEDSIDE GLUCOSE 86 MG/DL (70-105)
[2017-11-09 16:35] LABS: BEDSIDE GLUCOSE 126 MG/DL (70-105)
[2017-11-09] MEDS: NORCO, ANEXSIA 5/325MG TABLET (HYDROcodone/ACETAMINOPHEN) PO (17:40)
[2017-11-09 19:50] LABS: BEDSIDE GLUCOSE 221 MG/DL (70-105)
[2017-11-09] MEDS: ATORVASTATIN 20 MG TAB PO (22:17)
[2017-11-09] MEDS: LEVEMIR (INSULIN DETEMIR) 1 UNITS/0.01ML SC (22:20)
[2017-11-10 05:55] LABS: BASO # 0.1 10^3/uL (0.0-0.2); BASO % 0.7 % (0.0-1.0); EOS # 0.2 10^3/uL (0.0-0.50); EOS % 2.1 % (0.0-3.0); HEMATOCRIT 31.6 % (36.0-47.0); HEMOGLOBIN 9.7 g/dl (12.0-15.5); IMMATURE GRANULOCYTE % 0.5 % (0-3.0); LYMPH # 1.9 10^3/uL (1.5-4.5); LYMPH % 26.4 % (24.0-44.0); MEAN CORPUSCULAR HEMOGLOBIN 25.5 pg (27.0-33.0); MEAN CORPUSCULAR HGB CONC 30.7 g/dl (32.0-36.5); MEAN CORPUSCULAR VOLUME 83.2 fl (80.0-96.0); MONO # 0.8 10^3/uL (0.0-0.8); NEUTROPHILS # 4.3 10^3/uL (1.8-7.7); NEUTROPHILS % 59.3 % (36.0-66.0); PLATELET COUNT, AUTOMATED 388 10^3/uL (150-450); RED CELL DISTRIBUTION WIDTH 24.3 % (11.5-14.5); WHITE BLOOD COUNT 7.3 10^3/uL (4.0-10.0)
[2017-11-10 06:09] LABS: ANION GAP 6 MEQ/L (8-16); BLOOD UREA NITROGEN 23 MG/DL (7-18); CALCIUM LEVEL 7.7 MG/DL (8.5-10.1); CARBON DIOXIDE LEVEL 30 MEQ/L (21-32); CHLORIDE LEVEL 102 MEQ/L (98-107); CREATININE FOR GFR 3.08 MG/DL (0.55-1.30); GLOMERULAR FILTRATION RATE 16.7 (>51); GLUCOSE, FASTING 136 MG/DL (70-100); POTASSIUM SERUM 4.3 MEQ/L (3.5-5.1); SODIUM LEVEL 138 MEQ/L (136-145)
[2017-11-10] MEDS: NORCO, ANEXSIA 5/325MG TABLET (HYDROcodone/ACETAMINOPHEN) PO ×3 (06:30→21:10)
[2017-11-10] MEDS: CALCIUM ACETATE 667 MG GELCAP PO ×4 (08:00→17:29)
[2017-11-10] MEDS: CANDESARTAN 4MG TABLET PO ×2 (08:10→14:18)
[2017-11-10] MEDS: HumaLOG INSULIN (NovoLOG) PER UNIT SC ×4 (08:10→21:00)
[2017-11-10] MEDS: CALCITRIOL 0.25 MCG CAP (S0169) PO (08:11)
[2017-11-10] MEDS: TORSEMIDE 20 MG TAB PO (08:12)
[2017-11-10] MEDS: METOPROLOL TART 50 MG TAB PO ×2 (08:12→21:10)
[2017-11-10] MEDS: PANTOPRAZOLE 20 MG TAB PO (08:13)
[2017-11-10] MEDS: ALPRAZolam 0.5 MG TAB PO ×3 (08:13→21:07)
[2017-11-10] MEDS: SERTRALINE 100 MG TAB PO (08:13)
[2017-11-10 12:06] LABS: BEDSIDE GLUCOSE 168 MG/DL (70-105)
[2017-11-10] MEDS: CLOPIDOGREL 75 MG TAB PO (14:19)
[2017-11-10] MEDS: ASPIRIN 81 MG ENTERIC TAB PO (14:19)
[2017-11-10] MEDS: **hydrALAZINE** 10 MG TAB PO ×2 (14:22→17:55)
[2017-11-10] MEDS: **VANCO AFTER HD** MISC XX (16:00)
[2017-11-10 16:21] LABS: BEDSIDE GLUCOSE 311 MG/DL (70-105)
[2017-11-10 20:50] LABS: BEDSIDE GLUCOSE 175 MG/DL (70-105)
[2017-11-10] MEDS: ATORVASTATIN 20 MG TAB PO (21:07)
[2017-11-10] MEDS: LEVEMIR (INSULIN DETEMIR) 1 UNITS/0.01ML SC (21:09)
[2017-11-11] MEDS: **hydrALAZINE** 10 MG TAB PO ×4 (00:29→17:41)
[2017-11-11] MEDS: SERTRALINE 100 MG TAB PO (05:58)
[2017-11-11] MEDS: CALCIUM ACETATE 667 MG GELCAP PO ×4 (05:59→17:42)
[2017-11-11] MEDS: PANTOPRAZOLE 20 MG TAB PO (05:59)
[2017-11-11] MEDS: CALCIUM CARBONATE 500 MG CHEW U/D PO ×2 (05:59→06:44)
[2017-11-11] MEDS: CLOPIDOGREL 75 MG TAB PO (05:59)
[2017-11-11] MEDS: ASPIRIN 81 MG ENTERIC TAB PO (06:00)
[2017-11-11] MEDS: TORSEMIDE 20 MG TAB PO (06:00)
[2017-11-11] MEDS: ALPRAZolam 0.5 MG TAB PO ×3 (06:00→21:42)
[2017-11-11] MEDS: CALCITRIOL 0.25 MCG CAP (S0169) PO (06:00)
[2017-11-11] MEDS: METOPROLOL TART 50 MG TAB PO ×2 (06:01→21:42)
[2017-11-11 06:27] LABS: BASO # 0.1 10^3/uL (0.0-0.2); BASO % 0.8 % (0.0-1.0); EOS # 0.2 10^3/uL (0.0-0.50); EOS % 2.8 % (0.0-3.0); HEMATOCRIT 31.5 % (36.0-47.0); HEMOGLOBIN 9.5 g/dl (12.0-15.5); IMMATURE GRANULOCYTE % 0.7 % (0-3.0); LYMPH # 1.3 10^3/uL (1.5-4.5); LYMPH % 20.9 % (24.0-44.0); MEAN CORPUSCULAR HEMOGLOBIN 25.1 pg (27.0-33.0); MEAN CORPUSCULAR HGB CONC 30.2 g/dl (32.0-36.5); MEAN CORPUSCULAR VOLUME 83.1 fl (80.0-96.0); MONO # 0.6 10^3/uL (0.0-0.8); MONO % 10.6 % (0.0-5.0); NEUTROPHILS # 3.9 10^3/uL (1.8-7.7); NEUTROPHILS % 64.2 % (36.0-66.0); PLATELET COUNT, AUTOMATED 372 10^3/uL (150-450); RED BLOOD COUNT 3.79 10^6/uL (4.00-5.40); RED CELL DISTRIBUTION WIDTH 24.5 % (11.5-14.5)
[2017-11-11] MEDS: NORCO, ANEXSIA 5/325MG TABLET (HYDROcodone/ACETAMINOPHEN) PO ×2 (06:45→17:34)
[2017-11-11 06:51] LABS: ANION GAP 9 MEQ/L (8-16); BLOOD UREA NITROGEN 28 MG/DL (7-18); CALCIUM LEVEL 7.2 MG/DL (8.5-10.1); CARBON DIOXIDE LEVEL 26 MEQ/L (21-32); CHLORIDE LEVEL 103 MEQ/L (98-107); GLOMERULAR FILTRATION RATE 13.5 (>51); POTASSIUM SERUM 4.6 MEQ/L (3.5-5.1); SODIUM LEVEL 138 MEQ/L (136-145)
[2017-11-11 07:00] LABS: GLUCOSE, FASTING 439 MG/DL (70-100)
[2017-11-11] MEDS: HumaLOG INSULIN (NovoLOG) PER UNIT SC ×4 (07:43→21:43)
[2017-11-11] MEDS: NITROGLYCERIN 0.4 MG SUBL TABLET SL (07:49)
[2017-11-11] MEDS: GI COCKTAIL 50ML BTL(HYOSCYAMINE/MAALOX/LIDOCAINE VISCOUS)(1:3:1) PO (08:16)
[2017-11-11] MEDS: CANDESARTAN 4MG TABLET PO (09:00)
[2017-11-11] MEDS ORDERED: GI COCKTAIL 50ML BTL(HYOSCYAMINE/MAALOX/LIDOCAINE VISCOUS)(1:3:1) PO (09:00)
[2017-11-11 09:06] LABS: CK-MB VALUE MASS 3.9 NG/ML (<3.6); CPK CREATINE PHOSPHOKINASE 35 U/L (26-192); MB/CK RELATIVE INDEX 11.14 (< OR =4); TROPONIN I 0.05 NG/ML (< 0.10)
[2017-11-11 11:53] LABS: BEDSIDE GLUCOSE 63 MG/DL (70-105)
[2017-11-11 12:36] LABS: BEDSIDE GLUCOSE 75 MG/DL (70-105)
[2017-11-11] MEDS: HEPARIN 1,000 UNITS/ML 10ML VIAL (FOR RADIOLOGY& DIALYSIS ONLY) XX (15:15)
[2017-11-11] MEDS: HEPARIN 1,000 UNITS/ML 10ML VIAL (FOR RADIOLOGY& DIALYSIS ONLY) IV (15:15)
[2017-11-11] MEDS: **VANCO AFTER HD** MISC XX (15:50)
[2017-11-11 17:14] LABS: BEDSIDE GLUCOSE 85 MG/DL (70-105)
[2017-11-11 21:34] LABS: BEDSIDE GLUCOSE 404 MG/DL (70-105)
[2017-11-11] MEDS: ATORVASTATIN 20 MG TAB PO (21:42)
[2017-11-11] MEDS: LEVEMIR (INSULIN DETEMIR) 1 UNITS/0.01ML SC (21:43)
[2017-11-12] MEDS: NORCO, ANEXSIA 5/325MG TABLET (HYDROcodone/ACETAMINOPHEN) PO ×2 (01:13→09:12)
[2017-11-12 05:51] LABS: BASO # 0.1 10^3/uL (0.0-0.2); EOS # 0.2 10^3/uL (0.0-0.50); EOS % 2.3 % (0.0-3.0); HEMATOCRIT 31.7 % (36.0-47.0); HEMOGLOBIN 9.4 g/dl (12.0-15.5); IMMATURE GRANULOCYTE % 0.7 % (0-3.0); LYMPH # 1.4 10^3/uL (1.5-4.5); LYMPH % 20.2 % (24.0-44.0); MEAN CORPUSCULAR HEMOGLOBIN 24.9 pg (27.0-33.0); MEAN CORPUSCULAR HGB CONC 29.7 g/dl (32.0-36.5); MEAN CORPUSCULAR VOLUME 84.1 fl (80.0-96.0); MONO # 0.8 10^3/uL (0.0-0.8); MONO % 11.9 % (0.0-5.0); NEUTROPHILS # 4.4 10^3/uL (1.8-7.7); NEUTROPHILS % 63.9 % (36.0-66.0); PLATELET COUNT, AUTOMATED 303 10^3/uL (150-450); RED BLOOD COUNT 3.77 10^6/uL (4.00-5.40); RED CELL DISTRIBUTION WIDTH 24.4 % (11.5-14.5); WHITE BLOOD COUNT 6.9 10^3/uL (4.0-10.0)
[2017-11-12 06:12] LABS: ANION GAP 8 MEQ/L (8-16); BLOOD UREA NITROGEN 21 MG/DL (7-18); CALCIUM LEVEL 7.4 MG/DL (8.5-10.1); CARBON DIOXIDE LEVEL 28 MEQ/L (21-32); CHLORIDE LEVEL 99 MEQ/L (98-107); GLOMERULAR FILTRATION RATE 16.5 (>51); POTASSIUM SERUM 4.6 MEQ/L (3.5-5.1); SODIUM LEVEL 135 MEQ/L (136-145)
[2017-11-12 06:17] LABS: GLUCOSE, FASTING 476 MG/DL (70-100)
[2017-11-12] MEDS: HumaLOG INSULIN (NovoLOG) PER UNIT SC ×5 (06:34→21:07)
[2017-11-12] MEDS: **hydrALAZINE** 10 MG TAB PO ×4 (06:35→17:46)
[2017-11-12] MEDS: SENNA 8.6 MG TAB (SENOKOT) PO ×2 (06:35→21:05)
[2017-11-12 07:45] LABS: BEDSIDE GLUCOSE 444 MG/DL (70-105)
[2017-11-12] MEDS: METOPROLOL TART 50 MG TAB PO ×3 (09:00→21:05)
[2017-11-12] MEDS: CALCIUM ACETATE 667 MG GELCAP PO ×3 (09:10→17:46)
[2017-11-12] MEDS: PANTOPRAZOLE 20 MG TAB PO (09:11)
[2017-11-12] MEDS: TORSEMIDE 20 MG TAB PO (09:13)
[2017-11-12] MEDS: CALCITRIOL 0.25 MCG CAP (S0169) PO (09:13)
[2017-11-12] MEDS: SERTRALINE 100 MG TAB PO (09:14)
[2017-11-12] MEDS: ASPIRIN 81 MG ENTERIC TAB PO (09:14)
[2017-11-12] MEDS: ALPRAZolam 0.5 MG TAB PO ×3 (09:14→21:05)
[2017-11-12] MEDS: CANDESARTAN 4MG TABLET PO (09:14)
[2017-11-12] MEDS: CLOPIDOGREL 75 MG TAB PO (09:14)
[2017-11-12 11:16] LABS: BEDSIDE GLUCOSE 188 MG/DL (70-105)
[2017-11-12] MEDS: METOCLOPRAMIDE 5 MG TAB PO ×3 (13:05→21:04)
[2017-11-12] MEDS: **VANCO AFTER HD** MISC XX (16:00)
[2017-11-12 16:27] LABS: BEDSIDE GLUCOSE 144 MG/DL (70-105)
[2017-11-12 20:31] LABS: BEDSIDE GLUCOSE 284 MG/DL (70-105)
[2017-11-12] MEDS: ATORVASTATIN 20 MG TAB PO (21:06)
[2017-11-12] MEDS: LEVEMIR (INSULIN DETEMIR) 1 UNITS/0.01ML SC (21:06)
[2017-11-12] MEDS: CALCIUM CARBONATE 500 MG CHEW U/D PO (21:13)
[2017-11-13] MEDS: **hydrALAZINE** 10 MG TAB PO ×4 (00:58→17:36)
[2017-11-13] MEDS: NORCO, ANEXSIA 5/325MG TABLET (HYDROcodone/ACETAMINOPHEN) PO ×3 (05:55→17:36)
[2017-11-13 06:14] LABS: BASO # 0.1 10^3/uL (0.0-0.2); BASO % 0.7 % (0.0-1.0); EOS # 0.1 10^3/uL (0.0-0.50); EOS % 1.9 % (0.0-3.0); HEMATOCRIT 31.3 % (36.0-47.0); HEMOGLOBIN 9.4 g/dl (12.0-15.5); IMMATURE GRANULOCYTE % 0.9 % (0-3.0); LYMPH # 1.5 10^3/uL (1.5-4.5); LYMPH % 21.3 % (24.0-44.0); MEAN CORPUSCULAR HEMOGLOBIN 24.7 pg (27.0-33.0); MEAN CORPUSCULAR VOLUME 82.4 fl (80.0-96.0); MONO # 0.8 10^3/uL (0.0-0.8); MONO % 11.3 % (0.0-5.0); NEUTROPHILS # 4.4 10^3/uL (1.8-7.7); NEUTROPHILS % 63.9 % (36.0-66.0); PLATELET COUNT, AUTOMATED 340 10^3/uL (150-450); RED CELL DISTRIBUTION WIDTH 24.1 % (11.5-14.5); WHITE BLOOD COUNT 6.9 10^3/uL (4.0-10.0)
[2017-11-13 06:27] LABS: ANION GAP 9 MEQ/L (8-16); BLOOD UREA NITROGEN 28 MG/DL (7-18); CALCIUM LEVEL 7.8 MG/DL (8.5-10.1); CARBON DIOXIDE LEVEL 25 MEQ/L (21-32); CHLORIDE LEVEL 101 MEQ/L (98-107); CREATININE FOR GFR 3.65 MG/DL (0.55-1.30); GLOMERULAR FILTRATION RATE 13.7 (>51); GLUCOSE, FASTING 365 MG/DL (70-100); POTASSIUM SERUM 4.8 MEQ/L (3.5-5.1); SODIUM LEVEL 135 MEQ/L (136-145)
[2017-11-13] MEDS: HumaLOG INSULIN (NovoLOG) PER UNIT SC ×4 (07:30→21:19)
[2017-11-13] MEDS: CALCIUM ACETATE 667 MG GELCAP PO ×3 (08:00→17:39)
[2017-11-13] MEDS: METOCLOPRAMIDE 5 MG TAB PO ×4 (08:04→21:17)
[2017-11-13] MEDS: ALPRAZolam 0.5 MG TAB PO ×3 (08:04→21:18)
[2017-11-13] MEDS: TORSEMIDE 20 MG TAB PO (08:04)
[2017-11-13] MEDS: SERTRALINE 100 MG TAB PO (08:04)
[2017-11-13] MEDS: PANTOPRAZOLE 20 MG TAB PO (08:05)
[2017-11-13] MEDS: CALCITRIOL 0.25 MCG CAP (S0169) PO (08:05)
[2017-11-13] MEDS: METOPROLOL TART 50 MG TAB PO ×2 (08:05→21:18)
[2017-11-13] MEDS: ASPIRIN 81 MG ENTERIC TAB PO (08:05)
[2017-11-13] MEDS: CANDESARTAN 4MG TABLET PO (08:05)
[2017-11-13] MEDS: CLOPIDOGREL 75 MG TAB PO (08:05)
[2017-11-13 11:15] LABS: BEDSIDE GLUCOSE 249 MG/DL (70-105)
[2017-11-13] MEDS: SENNA 8.6 MG TAB (SENOKOT) PO (11:26)
[2017-11-13] MEDS: **VANCO AFTER HD** MISC XX (16:00)
[2017-11-13 17:03] LABS: BEDSIDE GLUCOSE 76 MG/DL (70-105)
[2017-11-13 20:14] LABS: BEDSIDE GLUCOSE 315 MG/DL (70-105)
[2017-11-13] MEDS: ATORVASTATIN 20 MG TAB PO (21:17)
[2017-11-13] MEDS: LEVEMIR (INSULIN DETEMIR) 1 UNITS/0.01ML SC (21:19)
[2017-11-14] MEDS: **hydrALAZINE** 10 MG TAB PO ×4 (00:48→17:52)
[2017-11-14] MEDS: NORCO, ANEXSIA 5/325MG TABLET (HYDROcodone/ACETAMINOPHEN) PO ×2 (00:51→17:49)
[2017-11-14 06:17] LABS: VANCOMYCIN RANDOM 19.7 UG/ML
[2017-11-14] MEDS: ALPRAZolam 0.5 MG TAB PO ×3 (06:28→21:25)
[2017-11-14] MEDS: CALCIUM ACETATE 667 MG GELCAP PO ×4 (06:28→17:48)
[2017-11-14] MEDS: ASPIRIN 81 MG ENTERIC TAB PO (06:28)
[2017-11-14] MEDS: CALCIUM CARBONATE 500 MG CHEW U/D PO (06:28)
[2017-11-14] MEDS: SERTRALINE 100 MG TAB PO (06:29)
[2017-11-14] MEDS: METOPROLOL TART 50 MG TAB PO ×2 (06:29→21:25)
[2017-11-14] MEDS: PANTOPRAZOLE 20 MG TAB PO (06:29)
[2017-11-14] MEDS: METOCLOPRAMIDE 5 MG TAB PO ×4 (06:29→21:25)
[2017-11-14] MEDS: TORSEMIDE 20 MG TAB PO (06:29)
[2017-11-14] MEDS: CALCITRIOL 0.25 MCG CAP (S0169) PO (06:30)
[2017-11-14] MEDS: CANDESARTAN 4MG TABLET PO (06:30)
[2017-11-14] MEDS: CLOPIDOGREL 75 MG TAB PO (06:30)
[2017-11-14] MEDS: IPRATROPIUM 0.5MG/ALBUTEROL 2.5MG INH SOL UD 3ML (DUONEB)(J7620) NEB (06:37)
[2017-11-14 07:14] LABS: BEDSIDE GLUCOSE 299 MG/DL (70-105)
[2017-11-14] MEDS: HumaLOG INSULIN (NovoLOG) PER UNIT SC ×4 (09:52→21:00)
[2017-11-14] MEDS: HEPARIN 1,000 UNITS/ML 10ML VIAL (FOR RADIOLOGY& DIALYSIS ONLY) IV (12:00)
[2017-11-14] MEDS: HEPARIN 1,000 UNITS/ML 10ML VIAL (FOR RADIOLOGY& DIALYSIS ONLY) XX (12:00)
[2017-11-14 12:11] LABS: BEDSIDE GLUCOSE 202 MG/DL (70-105)
[2017-11-14] MEDS: **VANCO AFTER HD** MISC XX (16:00)
[2017-11-14 17:01] LABS: BEDSIDE GLUCOSE 101 MG/DL (70-105)
[2017-11-14 20:15] LABS: BEDSIDE GLUCOSE 218 MG/DL (70-105)
[2017-11-14] MEDS: LEVEMIR (INSULIN DETEMIR) 1 UNITS/0.01ML SC (21:00)
[2017-11-14] MEDS: ATORVASTATIN 20 MG TAB PO (21:25)
[2017-11-15] MEDS: NORCO, ANEXSIA 5/325MG TABLET (HYDROcodone/ACETAMINOPHEN) PO ×2 (01:14→11:28)
[2017-11-15] MEDS: **hydrALAZINE** 10 MG TAB PO ×4 (05:53→17:28)
[2017-11-15 06:40] LABS: BEDSIDE GLUCOSE CONFIRMATION 742 MG/DL (LESS THAN 200)
[2017-11-15] MEDS: LEVEMIR (INSULIN DETEMIR) 1 UNITS/0.01ML SC ×2 (07:18→21:00)
[2017-11-15] MEDS: HumaLOG INSULIN (NovoLOG) PER UNIT SC ×4 (07:18→21:00)
[2017-11-15 08:23] LABS: BASO # 0.1 10^3/uL (0.0-0.2); EOS # 0.1 10^3/uL (0.0-0.50); HEMATOCRIT 32.4 % (36.0-47.0); HEMOGLOBIN 9.6 g/dl (12.0-15.5); IMMATURE GRANULOCYTE % 0.7 % (0-3.0); LYMPH % 15.8 % (24.0-44.0); MEAN CORPUSCULAR HGB CONC 29.6 g/dl (32.0-36.5); MEAN CORPUSCULAR VOLUME 84.4 fl (80.0-96.0); MONO # 0.5 10^3/uL (0.0-0.8); MONO % 8.3 % (0.0-5.0); NEUTROPHILS # 4.4 10^3/uL (1.8-7.7); NEUTROPHILS % 73.2 % (36.0-66.0); PLATELET COUNT, AUTOMATED 349 10^3/uL (150-450); RED BLOOD COUNT 3.84 10^6/uL (4.00-5.40); RED CELL DISTRIBUTION WIDTH 24.4 % (11.5-14.5)
[2017-11-15 08:25] LABS: CARBON DIOXIDE LEVEL 22 MEQ/L (21-32)
[2017-11-15 08:31] LABS: BEDSIDE GLUCOSE > 600 MG/DL (70-105)
[2017-11-15 08:31] LABS: BEDSIDE GLUCOSE > 600 MG/DL (70-105)
[2017-11-15] MEDS: ALPRAZolam 0.5 MG TAB PO ×3 (08:50→22:34)
[2017-11-15] MEDS: PANTOPRAZOLE 20 MG TAB PO (08:50)
[2017-11-15] MEDS: CALCIUM ACETATE 667 MG GELCAP PO ×3 (08:50→17:28)
[2017-11-15] MEDS: METOCLOPRAMIDE 5 MG TAB PO ×4 (08:50→22:34)
[2017-11-15] MEDS: ASPIRIN 81 MG ENTERIC TAB PO (08:50)
[2017-11-15] MEDS: METOPROLOL TART 50 MG TAB PO ×2 (08:51→22:34)
[2017-11-15] MEDS: TORSEMIDE 20 MG TAB PO (08:51)
[2017-11-15] MEDS: CLOPIDOGREL 75 MG TAB PO (08:51)
[2017-11-15] MEDS: CANDESARTAN 4MG TABLET PO (08:51)
[2017-11-15] MEDS: CALCITRIOL 0.25 MCG CAP (S0169) PO (08:52)
[2017-11-15] MEDS: SERTRALINE 100 MG TAB PO (08:53)
[2017-11-15 11:23] LABS: BEDSIDE GLUCOSE 483 MG/DL (70-105)
[2017-11-15] MEDS: **VANCO AFTER HD** MISC XX (16:00)
[2017-11-15 16:37] LABS: BEDSIDE GLUCOSE 190 MG/DL (70-105)
[2017-11-15 20:00] LABS: BEDSIDE GLUCOSE 71 MG/DL (70-105)
[2017-11-15 21:04] LABS: ANION GAP 13 MEQ/L (8-16); BLOOD UREA NITROGEN 28 MG/DL (7-18); CHLORIDE LEVEL 94 MEQ/L (98-107); CREATININE FOR GFR 3.25 MG/DL (0.55-1.30); GLOMERULAR FILTRATION RATE 15.7 (>51); GLUCOSE, FASTING 742 MG/DL (70-100); POTASSIUM SERUM 5.7 MEQ/L (3.5-5.1); SODIUM LEVEL 129 MEQ/L (136-145)
[2017-11-15 21:05] LABS: CALCIUM LEVEL 7.9 MG/DL (8.5-10.1)
[2017-11-15] MEDS: ATORVASTATIN 20 MG TAB PO (22:34)
[2017-11-15 23:36] LABS: BEDSIDE GLUCOSE 134 MG/DL (70-105)
[2017-11-16] MEDS: **hydrALAZINE** 10 MG TAB PO ×4 (00:09→17:25)
[2017-11-16] MEDS: NORCO, ANEXSIA 5/325MG TABLET (HYDROcodone/ACETAMINOPHEN) PO ×2 (00:10→17:35)
[2017-11-16] MEDS: SENNA 8.6 MG TAB (SENOKOT) PO ×2 (00:36→22:25)
[2017-11-16 05:51] LABS: BEDSIDE GLUCOSE 342 MG/DL (70-105)
[2017-11-16] MEDS: SERTRALINE 100 MG TAB PO (06:37)
[2017-11-16] MEDS: METOCLOPRAMIDE 5 MG TAB PO ×4 (06:37→21:44)
[2017-11-16] MEDS: CALCIUM ACETATE 667 MG GELCAP PO ×3 (06:37→17:34)
[2017-11-16] MEDS: ALPRAZolam 0.5 MG TAB PO ×3 (06:37→21:44)
[2017-11-16] MEDS: CALCITRIOL 0.25 MCG CAP (S0169) PO (06:38)
[2017-11-16] MEDS: PANTOPRAZOLE 20 MG TAB PO (06:38)
[2017-11-16] MEDS: ASPIRIN 81 MG ENTERIC TAB PO (06:38)
[2017-11-16] MEDS: TORSEMIDE 20 MG TAB PO (06:38)
[2017-11-16] MEDS: METOPROLOL TART 50 MG TAB PO ×2 (06:40→21:00)
[2017-11-16] MEDS: CANDESARTAN 4MG TABLET PO (06:41)
[2017-11-16] MEDS: HumaLOG INSULIN (NovoLOG) PER UNIT SC ×4 (07:30→21:45)
[2017-11-16] MEDS: LEVEMIR (INSULIN DETEMIR) 1 UNITS/0.01ML SC (09:00)
[2017-11-16] MEDS: CLOPIDOGREL 75 MG TAB PO (09:00)
[2017-11-16 09:45] LABS: HEMOGLOBIN 9.1 g/dl (12.0-15.5); MEAN CORPUSCULAR HEMOGLOBIN 25.1 pg (27.0-33.0); MEAN CORPUSCULAR HGB CONC 31.4 g/dl (32.0-36.5); MEAN CORPUSCULAR VOLUME 80.1 fl (80.0-96.0); PLATELET COUNT, AUTOMATED 348 10^3/uL (150-450); RED BLOOD COUNT 3.62 10^6/uL (4.00-5.40); RED CELL DISTRIBUTION WIDTH 22.8 % (11.5-14.5); WHITE BLOOD COUNT 6.1 10^3/uL (4.0-10.0)
[2017-11-16 10:27] LABS: ANION GAP 12 MEQ/L (8-16); BLOOD UREA NITROGEN 24 MG/DL (7-18); CALCIUM LEVEL 7.9 MG/DL (8.5-10.1); CARBON DIOXIDE LEVEL 27 MEQ/L (21-32); CHLORIDE LEVEL 97 MEQ/L (98-107); CREATININE FOR GFR 2.39 MG/DL (0.55-1.30); GLOMERULAR FILTRATION RATE 22.3 (>51); GLUCOSE, FASTING 309 MG/DL (70-100); POTASSIUM SERUM 4.4 MEQ/L (3.5-5.1); SODIUM LEVEL 136 MEQ/L (136-145)
[2017-11-16] MEDS: HEPARIN 1,000 UNITS/ML 10ML VIAL (FOR RADIOLOGY& DIALYSIS ONLY) XX (11:30)
[2017-11-16] MEDS: HEPARIN 1,000 UNITS/ML 10ML VIAL (FOR RADIOLOGY& DIALYSIS ONLY) IV (11:30)
[2017-11-16 13:50] LABS: BEDSIDE GLUCOSE 299 MG/DL (70-105)
[2017-11-16] MEDS ORDERED: ONDANSETRON 4MG/2ML VIAL (J2405) As Ordered (14:06)
[2017-11-16] MEDS ORDERED: LIDOCAINE 2% INJ 100 MG/5 ML SDV (FOR ANES.) As Ordered (14:06)
[2017-11-16] MEDS ORDERED: fentaNYL 100 MCG/2 ML INJECTION (J3010) As Ordered (14:06)
[2017-11-16] MEDS ORDERED: PROPOFOL 200 MG/20 ML VIAL As Ordered (14:06)
[2017-11-16] MEDS ORDERED: MIDAZOLAM INJ 2 MG/2 ML VIAL (J2250) As Ordered (14:06)
[2017-11-16] MEDS ORDERED: KETAMINE HCL 200 MG/20 ML VIAL As Ordered (15:21)
[2017-11-16] MEDS: HEPARIN SOD (PORCINE) 5000 UNITS/ML VIAL As Ordered (15:38)
[2017-11-16] MEDS: LIDOCAINE 1% SDV INJ 30 ML VIAL As Ordered (15:49)
[2017-11-16] MEDS: BUPIVACAINE HCL 0.5% 30 ML VIAL As Ordered (15:49)
[2017-11-16] MEDS: **VANCO AFTER HD** MISC XX (16:00)
[2017-11-16 16:12] LABS: BEDSIDE GLUCOSE 334 MG/DL (70-105)
[2017-11-16] MEDS ORDERED: HumaLOG INSULIN (NovoLOG) PER UNIT As Ordered (16:20)
[2017-11-16] MEDS ORDERED: ONDANSETRON 4MG/2ML VIAL (J2405) IV (16:30)
[2017-11-16] MEDS ORDERED: fentaNYL 100 MCG/2 ML INJECTION (J3010) IV (16:30)
[2017-11-16] MEDS ORDERED: HumaLOG INSULIN (NovoLOG) PER UNIT SC (16:30)
[2017-11-16 17:03] LABS: BEDSIDE GLUCOSE 342 MG/DL (70-105)
[2017-11-16 20:09] LABS: BEDSIDE GLUCOSE 430 MG/DL (70-105)
[2017-11-16] MEDS: ATORVASTATIN 20 MG TAB PO (21:44)
[2017-11-17] MEDS: **hydrALAZINE** 10 MG TAB PO ×5 (00:03→17:19)
[2017-11-17] MEDS: NORCO, ANEXSIA 5/325MG TABLET (HYDROcodone/ACETAMINOPHEN) PO ×3 (01:32→22:04)
[2017-11-17 06:45] LABS: BEDSIDE GLUCOSE 511 MG/DL (70-105)
[2017-11-17 06:45] LABS: BEDSIDE GLUCOSE 500 MG/DL (70-105)
[2017-11-17 07:26] LABS: BEDSIDE GLUCOSE CONFIRMATION 539 MG/DL (LESS THAN 200)
[2017-11-17] MEDS: LEVEMIR (INSULIN DETEMIR) 1 UNITS/0.01ML SC (08:19)
[2017-11-17] MEDS: SERTRALINE 100 MG TAB PO (08:20)
[2017-11-17] MEDS: METOCLOPRAMIDE 5 MG TAB PO ×4 (08:20→22:04)
[2017-11-17] MEDS: CALCITRIOL 0.25 MCG CAP (S0169) PO (08:20)
[2017-11-17] MEDS: HumaLOG INSULIN (NovoLOG) PER UNIT SC ×5 (08:20→22:04)
[2017-11-17] MEDS: CANDESARTAN 4MG TABLET PO (08:20)
[2017-11-17] MEDS: SENNA 8.6 MG TAB (SENOKOT) PO (08:20)
[2017-11-17] MEDS: CLOPIDOGREL 75 MG TAB PO (08:22)
[2017-11-17] MEDS: ALPRAZolam 0.5 MG TAB PO ×3 (08:22→22:04)
[2017-11-17] MEDS: TORSEMIDE 20 MG TAB PO (08:22)
[2017-11-17] MEDS: ASPIRIN 81 MG ENTERIC TAB PO (08:22)
[2017-11-17] MEDS: PANTOPRAZOLE 20 MG TAB PO (08:22)
[2017-11-17] MEDS: CALCIUM ACETATE 667 MG GELCAP PO ×3 (08:23→17:20)
[2017-11-17] MEDS: METOPROLOL TART 50 MG TAB PO ×2 (08:26→22:03)
[2017-11-17 11:40] LABS: BEDSIDE GLUCOSE > 600 MG/DL (70-105)
[2017-11-17 11:45] LABS: BEDSIDE GLUCOSE > 600 MG/DL (70-105)
[2017-11-17 12:32] LABS: BEDSIDE GLUCOSE CONFIRMATION 672 MG/DL (LESS THAN 200)
[2017-11-17] MEDS: **VANCO AFTER HD** MISC XX (16:00)
[2017-11-17 17:08] LABS: BEDSIDE GLUCOSE 381 MG/DL (70-105)
[2017-11-17 20:45] LABS: BEDSIDE GLUCOSE 295 MG/DL (70-105)
[2017-11-17] MEDS: ATORVASTATIN 20 MG TAB PO (22:02)
[2017-11-18] MEDS: ANEXSIA, NORCO 7.5MG/325MG TABLET(HYDROCODONE/APAP) PO (06:04)
[2017-11-18] MEDS: **hydrALAZINE** 10 MG TAB PO ×4 (06:05→17:10)
[2017-11-18 06:33] LABS: BEDSIDE GLUCOSE 170 MG/DL (70-105)
[2017-11-18] MEDS: HumaLOG INSULIN (NovoLOG) PER UNIT SC ×4 (07:30→21:00)
[2017-11-18] MEDS: CALCIUM ACETATE 667 MG GELCAP PO ×3 (08:00→17:11)
[2017-11-18] MEDS: LEVEMIR (INSULIN DETEMIR) 1 UNITS/0.01ML SC (08:47)
[2017-11-18] MEDS: CALCITRIOL 0.25 MCG CAP (S0169) PO (08:48)
[2017-11-18] MEDS: ALPRAZolam 0.5 MG TAB PO ×3 (08:48→21:37)
[2017-11-18] MEDS: METOCLOPRAMIDE 5 MG TAB PO ×4 (08:48→21:39)
[2017-11-18] MEDS: TORSEMIDE 20 MG TAB PO (08:48)
[2017-11-18] MEDS: CANDESARTAN 4MG TABLET PO (08:48)
[2017-11-18] MEDS: PANTOPRAZOLE 20 MG TAB PO (08:48)
[2017-11-18] MEDS: ASPIRIN 81 MG ENTERIC TAB PO (08:48)
[2017-11-18] MEDS: CLOPIDOGREL 75 MG TAB PO (08:48)
[2017-11-18] MEDS: SERTRALINE 100 MG TAB PO (08:48)
[2017-11-18] MEDS: KETOROLAC 30 MG/ML VIAL (J1885) IV (08:49)
[2017-11-18] MEDS: METOPROLOL TART 50 MG TAB PO ×2 (08:49→21:40)
[2017-11-18 10:10] LABS: HEMATOCRIT 32.4 % (36.0-47.0); HEMOGLOBIN 9.7 g/dl (12.0-15.5); MEAN CORPUSCULAR HGB CONC 29.9 g/dl (32.0-36.5); MEAN CORPUSCULAR VOLUME 83.5 fl (80.0-96.0); PLATELET COUNT, AUTOMATED 430 10^3/uL (150-450); RED BLOOD COUNT 3.88 10^6/uL (4.00-5.40); WHITE BLOOD COUNT 7.5 10^3/uL (4.0-10.0)
[2017-11-18 10:20] LABS: ANION GAP 11 MEQ/L (8-16); BLOOD UREA NITROGEN 42 MG/DL (7-18); CALCIUM LEVEL 7.8 MG/DL (8.5-10.1); CARBON DIOXIDE LEVEL 25 MEQ/L (21-32); CHLORIDE LEVEL 98 MEQ/L (98-107); CREATININE FOR GFR 3.97 MG/DL (0.55-1.30); GLOMERULAR FILTRATION RATE 12.4 (>51); GLUCOSE, FASTING 308 MG/DL (70-100); PHOSPHORUS LEVEL 5.9 MG/DL (2.5-4.9); SODIUM LEVEL 134 MEQ/L (136-145)
[2017-11-18 10:21] LABS: POTASSIUM SERUM 5.5 MEQ/L (3.5-5.1)
[2017-11-18] MEDS: HEPARIN 1,000 UNITS/ML 10ML VIAL (FOR RADIOLOGY& DIALYSIS ONLY) IV (10:45)
[2017-11-18] MEDS: HEPARIN 1,000 UNITS/ML 10ML VIAL (FOR RADIOLOGY& DIALYSIS ONLY) XX ×2 (10:45)
[2017-11-18] MEDS: VANCOMYCIN HCL 1,000 MG, VIAL MATE ADAPTER 1 EACH in D5W 250 ML IV (15:50)
[2017-11-18] MEDS: **VANCO AFTER HD** MISC XX (15:51)
[2017-11-18 16:54] LABS: BEDSIDE GLUCOSE 107 MG/DL (70-105)
[2017-11-18] MEDS: SENNA 8.6 MG TAB (SENOKOT) PO (18:19)
[2017-11-18] MEDS: NORCO, ANEXSIA 5/325MG TABLET (HYDROcodone/ACETAMINOPHEN) PO (18:19)
[2017-11-18 20:48] LABS: BEDSIDE GLUCOSE 237 MG/DL (70-105)
[2017-11-18] MEDS: ATORVASTATIN 20 MG TAB PO (21:39)
[2017-11-19] MEDS: CALCIUM CARBONATE 500 MG CHEW U/D PO (05:54)
[2017-11-19] MEDS: ANEXSIA, NORCO 7.5MG/325MG TABLET(HYDROCODONE/APAP) PO ×2 (05:55→21:54)
[2017-11-19] MEDS: **hydrALAZINE** 10 MG TAB PO ×5 (06:00→23:52)
[2017-11-19 06:48] LABS: BEDSIDE GLUCOSE CONFIRMATION 703 MG/DL (LESS THAN 200)
[2017-11-19] MEDS: HumaLOG INSULIN (NovoLOG) PER UNIT SC ×6 (07:25→21:50)
[2017-11-19 07:35] LABS: ANION GAP 14 MEQ/L (8-16); BLOOD UREA NITROGEN 32 MG/DL (7-18); CARBON DIOXIDE LEVEL 21 MEQ/L (21-32); CHLORIDE LEVEL 94 MEQ/L (98-107); CREATININE FOR GFR 3.13 MG/DL (0.55-1.30); GLOMERULAR FILTRATION RATE 16.4 (>51); SODIUM LEVEL 129 MEQ/L (136-145)
[2017-11-19 07:37] LABS: HEMATOCRIT 35.8 % (36.0-47.0); HEMOGLOBIN 10.6 g/dl (12.0-15.5); MEAN CORPUSCULAR HEMOGLOBIN 24.9 pg (27.0-33.0); MEAN CORPUSCULAR HGB CONC 29.6 g/dl (32.0-36.5); MEAN CORPUSCULAR VOLUME 84.2 fl (80.0-96.0); PLATELET COUNT, AUTOMATED 479 10^3/uL (150-450); RED BLOOD COUNT 4.25 10^6/uL (4.00-5.40); RED CELL DISTRIBUTION WIDTH 23.8 % (11.5-14.5); WHITE BLOOD COUNT 8.7 10^3/uL (4.0-10.0)
[2017-11-19] MEDS: CALCIUM ACETATE 667 MG GELCAP PO ×3 (08:00→17:09)
[2017-11-19] MEDS ORDERED: HumaLOG 75/25 MIX INSULIN PER UNIT SC (08:00)
[2017-11-19] MEDS: CALCITRIOL 0.25 MCG CAP (S0169) PO (08:34)
[2017-11-19] MEDS: CANDESARTAN 4MG TABLET PO (08:34)
[2017-11-19] MEDS: TORSEMIDE 20 MG TAB PO (08:35)
[2017-11-19] MEDS: PANTOPRAZOLE 20 MG TAB PO (08:35)
[2017-11-19] MEDS: SERTRALINE 100 MG TAB PO (08:35)
[2017-11-19] MEDS: ASPIRIN 81 MG ENTERIC TAB PO (08:35)
[2017-11-19] MEDS: CLOPIDOGREL 75 MG TAB PO (08:35)
[2017-11-19] MEDS: METOPROLOL TART 50 MG TAB PO ×2 (08:36→21:55)
[2017-11-19] MEDS: ALPRAZolam 0.5 MG TAB PO ×3 (08:36→21:54)
[2017-11-19] MEDS: METOCLOPRAMIDE 5 MG TAB PO ×4 (08:36→21:54)
[2017-11-19] MEDS: NORCO, ANEXSIA 5/325MG TABLET (HYDROcodone/ACETAMINOPHEN) PO (08:39)
[2017-11-19] MEDS: LEVEMIR (INSULIN DETEMIR) 1 UNITS/0.01ML SC ×2 (08:40→13:19)
[2017-11-19] MEDS: PATIROMER SORBITEX CALCIUM 8.4 GM POWDER PACKET (VELTASSA) PO (09:11)
[2017-11-19 09:45] LABS: GLUCOSE, FASTING 703 MG/DL (70-100)
[2017-11-19 12:43] LABS: ANION GAP 11 MEQ/L (8-16); BLOOD UREA NITROGEN 35 MG/DL (7-18); CALCIUM LEVEL 7.5 MG/DL (8.5-10.1); CARBON DIOXIDE LEVEL 23 MEQ/L (21-32); CHLORIDE LEVEL 92 MEQ/L (98-107); CREATININE FOR GFR 3.27 MG/DL (0.55-1.30); GLOMERULAR FILTRATION RATE 15.6 (>51); SODIUM LEVEL 126 MEQ/L (136-145)
[2017-11-19 12:45] LABS: GLUCOSE, FASTING 635 MG/DL (70-100); POTASSIUM SERUM 5.9 MEQ/L (3.5-5.1)
[2017-11-19 12:45] LABS: BEDSIDE GLUCOSE CONFIRMATION 647 MG/DL (LESS THAN 200)
[2017-11-19 14:37] LABS: BEDSIDE GLUCOSE 543 MG/DL (70-105)
[2017-11-19 16:35] LABS: BEDSIDE GLUCOSE 288 MG/DL (70-105)
[2017-11-19 21:45] LABS: BEDSIDE GLUCOSE 109 MG/DL (70-105)
[2017-11-19] MEDS: SENNA 8.6 MG TAB (SENOKOT) PO (21:54)
[2017-11-19] MEDS: ATORVASTATIN 20 MG TAB PO (21:54)
[2017-11-20] MEDS: **hydrALAZINE** 10 MG TAB PO ×4 (06:00→23:23)
[2017-11-20 07:12] LABS: HEMOGLOBIN 10.4 g/dl (12.0-15.5); MEAN CORPUSCULAR HEMOGLOBIN 24.7 pg (27.0-33.0); MEAN CORPUSCULAR HGB CONC 30.6 g/dl (32.0-36.5); MEAN CORPUSCULAR VOLUME 80.8 fl (80.0-96.0); PLATELET COUNT, AUTOMATED 471 10^3/uL (150-450); RED BLOOD COUNT 4.21 10^6/uL (4.00-5.40); RED CELL DISTRIBUTION WIDTH 22.8 % (11.5-14.5); WHITE BLOOD COUNT 8.2 10^3/uL (4.0-10.0)
[2017-11-20 07:30] LABS: ANION GAP 11 MEQ/L (8-16); BLOOD UREA NITROGEN 43 MG/DL (7-18); CALCIUM LEVEL 8.1 MG/DL (8.5-10.1); CARBON DIOXIDE LEVEL 24 MEQ/L (21-32); CHLORIDE LEVEL 95 MEQ/L (98-107); CREATININE FOR GFR 3.46 MG/DL (0.55-1.30); GLOMERULAR FILTRATION RATE 14.6 (>51); GLUCOSE, FASTING 64 MG/DL (70-100); SODIUM LEVEL 130 MEQ/L (136-145)
[2017-11-20] MEDS: HumaLOG INSULIN (NovoLOG) PER UNIT SC ×4 (07:30→21:00)
[2017-11-20 07:34] LABS: POTASSIUM SERUM 5.6 MEQ/L (3.5-5.1)
[2017-11-20] MEDS: SERTRALINE 100 MG TAB PO (09:25)
[2017-11-20] MEDS: NORCO, ANEXSIA 5/325MG TABLET (HYDROcodone/ACETAMINOPHEN) PO ×3 (09:26→20:43)
[2017-11-20] MEDS: ALPRAZolam 0.5 MG TAB PO ×3 (09:27→20:40)
[2017-11-20] MEDS: CALCIUM ACETATE 667 MG GELCAP PO ×3 (09:27→17:38)
[2017-11-20] MEDS: CANDESARTAN 4MG TABLET PO (09:27)
[2017-11-20] MEDS: PANTOPRAZOLE 20 MG TAB PO (09:27)
[2017-11-20] MEDS: CLOPIDOGREL 75 MG TAB PO (09:27)
[2017-11-20] MEDS: TORSEMIDE 20 MG TAB PO (09:27)
[2017-11-20] MEDS: METOCLOPRAMIDE 5 MG TAB PO ×4 (09:27→20:40)
[2017-11-20] MEDS: CALCITRIOL 0.25 MCG CAP (S0169) PO (09:27)
[2017-11-20] MEDS: ASPIRIN 81 MG ENTERIC TAB PO (09:27)
[2017-11-20] MEDS: METOPROLOL TART 50 MG TAB PO ×2 (09:28→20:41)
[2017-11-20] MEDS: LEVEMIR (INSULIN DETEMIR) 1 UNITS/0.01ML SC (09:29)
[2017-11-20] MEDS: ATORVASTATIN 20 MG TAB PO (20:42)
[2017-11-20 21:23] LABS: BEDSIDE GLUCOSE 103 MG/DL (70-105)
[2017-11-21] MEDS: **hydrALAZINE** 10 MG TAB PO ×4 (05:44→23:32)
[2017-11-21] MEDS: NORCO, ANEXSIA 5/325MG TABLET (HYDROcodone/ACETAMINOPHEN) PO ×4 (05:46→22:22)
[2017-11-21 07:54] LABS: BEDSIDE GLUCOSE 185 MG/DL (70-105)
[2017-11-21] MEDS: HumaLOG INSULIN (NovoLOG) PER UNIT SC ×4 (09:11→21:00)
[2017-11-21] MEDS: LEVEMIR (INSULIN DETEMIR) 1 UNITS/0.01ML SC (09:12)
[2017-11-21] MEDS: CLOPIDOGREL 75 MG TAB PO (09:12)
[2017-11-21] MEDS: CALCIUM ACETATE 667 MG GELCAP PO ×3 (09:12→18:32)
[2017-11-21] MEDS: CALCITRIOL 0.25 MCG CAP (S0169) PO (09:13)
[2017-11-21] MEDS: TORSEMIDE 20 MG TAB PO (09:13)
[2017-11-21] MEDS: ASPIRIN 81 MG ENTERIC TAB PO (09:13)
[2017-11-21] MEDS: METOPROLOL TART 50 MG TAB PO ×2 (09:13→22:24)
[2017-11-21] MEDS: PANTOPRAZOLE 20 MG TAB PO (09:13)
[2017-11-21] MEDS: ALPRAZolam 0.5 MG TAB PO ×3 (09:14→22:24)
[2017-11-21] MEDS: SERTRALINE 100 MG TAB PO (09:15)
[2017-11-21] MEDS: METOCLOPRAMIDE 5 MG TAB PO ×4 (09:15→22:23)
[2017-11-21] MEDS: CANDESARTAN 4MG TABLET PO (09:20)
[2017-11-21] MEDS: KETOROLAC 30 MG/ML VIAL (J1885) IV (10:16)
[2017-11-21] MEDS: HEPARIN 1,000 UNITS/ML 10ML VIAL (FOR RADIOLOGY& DIALYSIS ONLY) IV (10:30)
[2017-11-21] MEDS: HEPARIN 1,000 UNITS/ML 10ML VIAL (FOR RADIOLOGY& DIALYSIS ONLY) XX (10:30)
[2017-11-21 13:13] LABS: BASO # 0.1 10^3/uL (0.0-0.2); BASO % 1.2 % (0.0-1.0); EOS # 0.2 10^3/uL (0.0-0.50); EOS % 2.9 % (0.0-3.0); HEMATOCRIT 28.2 % (36.0-47.0); HEMOGLOBIN 8.9 g/dl (12.0-15.5); LYMPH # 1.1 10^3/uL (1.5-4.5); MEAN CORPUSCULAR HEMOGLOBIN 24.9 pg (27.0-33.0); MEAN CORPUSCULAR HGB CONC 31.6 g/dl (32.0-36.5); MONO # 0.5 10^3/uL (0.0-0.8); MONO % 7.7 % (0.0-5.0); NEUTROPHILS % 68.2 % (36.0-66.0); PLATELET COUNT, AUTOMATED 423 10^3/uL (150-450); RED BLOOD COUNT 3.57 10^6/uL (4.00-5.40); RED CELL DISTRIBUTION WIDTH 22.6 % (11.5-14.5); WHITE BLOOD COUNT 5.8 10^3/uL (4.0-10.0)
[2017-11-21 13:34] LABS: ALBUMIN 1.9 GM/DL (3.2-5.2); ANION GAP 9 MEQ/L (8-16); BLOOD UREA NITROGEN 29 MG/DL (7-18); CALCIUM LEVEL 7.5 MG/DL (8.5-10.1); CARBON DIOXIDE LEVEL 28 MEQ/L (21-32); CHLORIDE LEVEL 97 MEQ/L (98-107); CREATININE FOR GFR 2.49 MG/DL (0.55-1.30); GLOMERULAR FILTRATION RATE 21.3 (>51); GLUCOSE, FASTING 186 MG/DL (70-100); PHOSPHORUS LEVEL 2.9 MG/DL (2.5-4.9); POTASSIUM SERUM 3.9 MEQ/L (3.5-5.1); SODIUM LEVEL 134 MEQ/L (136-145)
[2017-11-21 20:21] LABS: BEDSIDE GLUCOSE 85 MG/DL (70-105)
[2017-11-21 20:21] LABS: BEDSIDE GLUCOSE 174 MG/DL (70-105)
[2017-11-21 20:21] LABS: BEDSIDE GLUCOSE 174 MG/DL (70-105)
[2017-11-21 20:21] LABS: BEDSIDE GLUCOSE 71 MG/DL (70-105)
[2017-11-21 21:43] LABS: BEDSIDE GLUCOSE 71 MG/DL (70-105)
[2017-11-21] MEDS: ATORVASTATIN 20 MG TAB PO (22:21)
[2017-11-21] MEDS: SENNA 8.6 MG TAB (SENOKOT) PO (23:49)
[2017-11-22] MEDS: **hydrALAZINE** 10 MG TAB PO ×3 (05:44→18:02)
[2017-11-22 05:45] LABS: BEDSIDE GLUCOSE 277 MG/DL (70-105)
[2017-11-22] MEDS: CALCIUM ACETATE 667 MG GELCAP PO ×3 (08:13→18:01)
[2017-11-22] MEDS: TORSEMIDE 20 MG TAB PO (08:13)
[2017-11-22] MEDS: ALPRAZolam 0.5 MG TAB PO ×3 (08:13→21:44)
[2017-11-22] MEDS: ASPIRIN 81 MG ENTERIC TAB PO (08:13)
[2017-11-22] MEDS: METOCLOPRAMIDE 5 MG TAB PO ×4 (08:13→21:45)
[2017-11-22] MEDS: CALCITRIOL 0.25 MCG CAP (S0169) PO (08:14)
[2017-11-22] MEDS: CLOPIDOGREL 75 MG TAB PO (08:14)
[2017-11-22] MEDS: HumaLOG INSULIN (NovoLOG) PER UNIT SC ×4 (08:14→21:00)
[2017-11-22] MEDS: CANDESARTAN 4MG TABLET PO (08:14)
[2017-11-22] MEDS: PANTOPRAZOLE 20 MG TAB PO (08:14)
[2017-11-22] MEDS: SERTRALINE 100 MG TAB PO (08:14)
[2017-11-22] MEDS: METOPROLOL TART 50 MG TAB PO ×2 (08:17→21:45)
[2017-11-22] MEDS: LEVEMIR (INSULIN DETEMIR) 1 UNITS/0.01ML SC (08:18)
[2017-11-22] MEDS: NORCO, ANEXSIA 5/325MG TABLET (HYDROcodone/ACETAMINOPHEN) PO ×3 (08:22→21:50)
[2017-11-22 08:37] LABS: BASO # 0.1 10^3/uL (0.0-0.2); EOS # 0.2 10^3/uL (0.0-0.50); EOS % 1.7 % (0.0-3.0); HEMATOCRIT 31.8 % (36.0-47.0); HEMOGLOBIN 9.9 g/dl (12.0-15.5); IMMATURE GRANULOCYTE % 0.7 % (0-3.0); LYMPH # 0.9 10^3/uL (1.5-4.5); LYMPH % 10.3 % (24.0-44.0); MEAN CORPUSCULAR HEMOGLOBIN 24.8 pg (27.0-33.0); MEAN CORPUSCULAR HGB CONC 31.1 g/dl (32.0-36.5); MEAN CORPUSCULAR VOLUME 79.7 fl (80.0-96.0); MONO # 0.7 10^3/uL (0.0-0.8); MONO % 7.4 % (0.0-5.0); NEUTROPHILS % 78.9 % (36.0-66.0); PLATELET COUNT, AUTOMATED 485 10^3/uL (150-450); RED BLOOD COUNT 3.99 10^6/uL (4.00-5.40); RED CELL DISTRIBUTION WIDTH 22.5 % (11.5-14.5); WHITE BLOOD COUNT 8.9 10^3/uL (4.0-10.0)
[2017-11-22 09:01] LABS: ALBUMIN 2.1 GM/DL (3.2-5.2); ANION GAP 14 MEQ/L (8-16); BLOOD UREA NITROGEN 35 MG/DL (7-18); CALCIUM LEVEL 7.6 MG/DL (8.5-10.1); CARBON DIOXIDE LEVEL 22 MEQ/L (21-32); CHLORIDE LEVEL 97 MEQ/L (98-107); CREATININE FOR GFR 3.17 MG/DL (0.55-1.30); GLOMERULAR FILTRATION RATE 16.1 (>51); GLUCOSE, FASTING 345 MG/DL (70-100); PHOSPHORUS LEVEL 5.1 MG/DL (2.5-4.9); SODIUM LEVEL 133 MEQ/L (136-145)
[2017-11-22 09:04] LABS: POTASSIUM SERUM 5.2 MEQ/L (3.5-5.1)
[2017-11-22 11:49] LABS: BEDSIDE GLUCOSE 264 MG/DL (70-105)
[2017-11-22 16:50] LABS: BEDSIDE GLUCOSE 145 MG/DL (70-105)
[2017-11-22 20:19] LABS: BEDSIDE GLUCOSE 102 MG/DL (70-105)
[2017-11-22] MEDS: ATORVASTATIN 20 MG TAB PO (21:44)
[2017-11-23] MEDS: **hydrALAZINE** 10 MG TAB PO ×4 (00:37→18:28)
[2017-11-23] MEDS: CALCIUM ACETATE 667 MG GELCAP PO ×3 (05:52→18:27)
[2017-11-23] MEDS: CALCIUM CARBONATE 500 MG CHEW U/D PO (05:53)
[2017-11-23] MEDS: ASPIRIN 81 MG ENTERIC TAB PO (05:53)
[2017-11-23] MEDS: CANDESARTAN 4MG TABLET PO (05:53)
[2017-11-23] MEDS: ALPRAZolam 0.5 MG TAB PO ×3 (05:53→21:52)
[2017-11-23] MEDS: CALCITRIOL 0.25 MCG CAP (S0169) PO (05:53)
[2017-11-23] MEDS: METOCLOPRAMIDE 5 MG TAB PO ×4 (05:54→21:52)
[2017-11-23] MEDS: CLOPIDOGREL 75 MG TAB PO (05:54)
[2017-11-23] MEDS: TORSEMIDE 20 MG TAB PO (05:58)
[2017-11-23] MEDS: METOPROLOL TART 50 MG TAB PO ×2 (05:59→21:52)
[2017-11-23] MEDS: NORCO, ANEXSIA 5/325MG TABLET (HYDROcodone/ACETAMINOPHEN) PO ×2 (05:59→13:56)
[2017-11-23] MEDS: PANTOPRAZOLE 20 MG TAB PO (06:07)
[2017-11-23] MEDS: SERTRALINE 100 MG TAB PO (06:08)
[2017-11-23 06:20] LABS: BEDSIDE GLUCOSE 188 MG/DL (70-105)
[2017-11-23] MEDS: LEVEMIR (INSULIN DETEMIR) 1 UNITS/0.01ML SC (08:32)
[2017-11-23] MEDS: HumaLOG INSULIN (NovoLOG) PER UNIT SC ×4 (08:32→21:00)
[2017-11-23] MEDS: HEPARIN 1,000 UNITS/ML 10ML VIAL (FOR RADIOLOGY& DIALYSIS ONLY) XX (13:35)
[2017-11-23] MEDS: HEPARIN 1,000 UNITS/ML 10ML VIAL (FOR RADIOLOGY& DIALYSIS ONLY) IV (13:35)
[2017-11-23 13:45] LABS: BEDSIDE GLUCOSE 136 MG/DL (70-105)
[2017-11-23] MEDS: SENNA 8.6 MG TAB (SENOKOT) PO (14:09)
[2017-11-23 20:20] LABS: BEDSIDE GLUCOSE 86 MG/DL (70-105)
[2017-11-23 20:39] LABS: BEDSIDE GLUCOSE 95 MG/DL (70-105)
[2017-11-23] MEDS: ATORVASTATIN 20 MG TAB PO (21:52)
[2017-11-24] MEDS: **hydrALAZINE** 10 MG TAB PO ×4 (00:18→18:00)
[2017-11-24 06:03] LABS: BEDSIDE GLUCOSE 325 MG/DL (70-105)
[2017-11-24] MEDS: CANDESARTAN 4MG TABLET PO (09:26)
[2017-11-24] MEDS: CALCITRIOL 0.25 MCG CAP (S0169) PO (09:26)
[2017-11-24] MEDS: NORCO, ANEXSIA 5/325MG TABLET (HYDROcodone/ACETAMINOPHEN) PO (09:27)
[2017-11-24] MEDS: CALCIUM ACETATE 667 MG GELCAP PO ×3 (09:27→18:55)
[2017-11-24] MEDS: LEVEMIR (INSULIN DETEMIR) 1 UNITS/0.01ML SC (09:27)
[2017-11-24] MEDS: ALPRAZolam 0.5 MG TAB PO ×3 (09:28→21:30)
[2017-11-24] MEDS: ASPIRIN 81 MG ENTERIC TAB PO (09:28)
[2017-11-24] MEDS: METOCLOPRAMIDE 5 MG TAB PO ×4 (09:28→21:30)
[2017-11-24] MEDS: HumaLOG INSULIN (NovoLOG) PER UNIT SC ×4 (09:28→21:00)
[2017-11-24] MEDS: CLOPIDOGREL 75 MG TAB PO (09:28)
[2017-11-24] MEDS: METOPROLOL TART 50 MG TAB PO ×2 (09:29→21:30)
[2017-11-24] MEDS: TORSEMIDE 20 MG TAB PO (09:29)
[2017-11-24] MEDS: SERTRALINE 100 MG TAB PO (09:29)
[2017-11-24] MEDS: PANTOPRAZOLE 20 MG TAB PO (09:29)
[2017-11-24 11:35] LABS: BEDSIDE GLUCOSE 396 MG/DL (70-105)
[2017-11-24 17:15] LABS: BEDSIDE GLUCOSE 208 MG/DL (70-105)
[2017-11-24 20:20] LABS: BEDSIDE GLUCOSE 162 MG/DL (70-105)
[2017-11-24] MEDS: ATORVASTATIN 20 MG TAB PO (21:30)
[2017-11-25] MEDS: **hydrALAZINE** 10 MG TAB PO ×4 (00:35→18:00)
[2017-11-25] MEDS: ANEXSIA, NORCO 7.5MG/325MG TABLET(HYDROCODONE/APAP) PO (00:49)
[2017-11-25] MEDS: NORCO, ANEXSIA 5/325MG TABLET (HYDROcodone/ACETAMINOPHEN) PO ×3 (03:28→22:19)
[2017-11-25 05:58] LABS: BEDSIDE GLUCOSE 308 MG/DL (70-105)
[2017-11-25] MEDS: CANDESARTAN 4MG TABLET PO (06:03)
[2017-11-25] MEDS: CLOPIDOGREL 75 MG TAB PO (06:03)
[2017-11-25] MEDS: CALCIUM ACETATE 667 MG GELCAP PO ×3 (06:03→18:00)
[2017-11-25] MEDS: METOCLOPRAMIDE 5 MG TAB PO ×4 (06:03→22:22)
[2017-11-25] MEDS: SERTRALINE 100 MG TAB PO (06:03)
[2017-11-25] MEDS: ALPRAZolam 0.5 MG TAB PO ×3 (06:03→22:22)
[2017-11-25] MEDS: ASPIRIN 81 MG ENTERIC TAB PO (06:03)
[2017-11-25] MEDS: CALCITRIOL 0.25 MCG CAP (S0169) PO (06:04)
[2017-11-25] MEDS: PANTOPRAZOLE 20 MG TAB PO (06:04)
[2017-11-25] MEDS: TORSEMIDE 20 MG TAB PO (06:04)
[2017-11-25] MEDS: METOPROLOL TART 50 MG TAB PO ×2 (06:05→22:22)
[2017-11-25 08:23] LABS: BEDSIDE GLUCOSE > 600 MG/DL (70-105)
[2017-11-25 08:23] LABS: BEDSIDE GLUCOSE > 600 MG/DL (70-105)
[2017-11-25 08:23] LABS: BEDSIDE GLUCOSE > 600 MG/DL (70-105)
[2017-11-25] MEDS: LEVEMIR (INSULIN DETEMIR) 1 UNITS/0.01ML SC (08:49)
[2017-11-25] MEDS: HumaLOG INSULIN (NovoLOG) PER UNIT SC ×4 (08:49→21:00)
[2017-11-25] MEDS: HEPARIN 1,000 UNITS/ML 10ML VIAL (FOR RADIOLOGY& DIALYSIS ONLY) XX (11:15)
[2017-11-25] MEDS: HEPARIN 1,000 UNITS/ML 10ML VIAL (FOR RADIOLOGY& DIALYSIS ONLY) IV (11:15)
[2017-11-25 12:11] LABS: BEDSIDE GLUCOSE 168 MG/DL (70-105)
[2017-11-25] MEDS: SENNA 8.6 MG TAB (SENOKOT) PO (16:50)
[2017-11-25 17:01] LABS: BEDSIDE GLUCOSE 52 MG/DL (70-105)
[2017-11-25] MEDS: GLUCOSE 4 GM CHEW TABLET PO (17:04)
[2017-11-25 17:19] LABS: BEDSIDE GLUCOSE 50 MG/DL (70-105)
[2017-11-25 17:42] LABS: BEDSIDE GLUCOSE 81 MG/DL (70-105)
[2017-11-25 21:00] LABS: BEDSIDE GLUCOSE 135 MG/DL (70-105)
[2017-11-25] MEDS: ATORVASTATIN 20 MG TAB PO (22:19)
[2017-11-26 05:53] LABS: BEDSIDE GLUCOSE 496 MG/DL (70-105)
[2017-11-26] MEDS: HumaLOG INSULIN (NovoLOG) PER UNIT SC ×5 (06:18→21:00)
[2017-11-26] MEDS: **hydrALAZINE** 10 MG TAB PO ×2 (06:18)
[2017-11-26] MEDS: NORCO, ANEXSIA 5/325MG TABLET (HYDROcodone/ACETAMINOPHEN) PO (06:42)
[2017-11-26 06:55] LABS: BEDSIDE GLUCOSE 450 MG/DL (70-105)
[2017-11-26] MEDS: LEVEMIR (INSULIN DETEMIR) 1 UNITS/0.01ML SC (08:01)
[2017-11-26] MEDS: CANDESARTAN 4MG TABLET PO (09:35)
[2017-11-26] MEDS: PANTOPRAZOLE 20 MG TAB PO (09:35)
[2017-11-26] MEDS: ASPIRIN 81 MG ENTERIC TAB PO (09:35)
[2017-11-26] MEDS: METOCLOPRAMIDE 5 MG TAB PO ×4 (09:35→21:45)
[2017-11-26] MEDS: CLOPIDOGREL 75 MG TAB PO (09:36)
[2017-11-26] MEDS: TORSEMIDE 20 MG TAB PO (09:36)
[2017-11-26] MEDS: SERTRALINE 100 MG TAB PO (09:36)
[2017-11-26] MEDS: ALPRAZolam 0.5 MG TAB PO ×3 (09:36→21:44)
[2017-11-26] MEDS: METOPROLOL TART 50 MG TAB PO ×2 (09:41→21:45)
[2017-11-26] MEDS: CALCITRIOL 0.25 MCG CAP (S0169) PO (09:42)
[2017-11-26] MEDS: CALCIUM ACETATE 667 MG GELCAP PO ×3 (09:43→17:41)
[2017-11-26 11:29] LABS: BEDSIDE GLUCOSE 267 MG/DL (70-105)
[2017-11-26 16:27] LABS: BEDSIDE GLUCOSE 61 MG/DL (70-105)
[2017-11-26] MEDS: ANEXSIA, NORCO 7.5MG/325MG TABLET(HYDROCODONE/APAP) PO (16:36)
[2017-11-26] MEDS: GLUCOSE 4 GM CHEW TABLET PO (18:43)
[2017-11-26 20:34] LABS: BEDSIDE GLUCOSE 105 MG/DL (70-105)
[2017-11-26] MEDS: ATORVASTATIN 20 MG TAB PO (21:44)
[2017-11-27] MEDS: SENNA 8.6 MG TAB (SENOKOT) PO (02:16)
[2017-11-27 05:49] LABS: BEDSIDE GLUCOSE 440 MG/DL (70-105)
[2017-11-27] MEDS: NORCO, ANEXSIA 5/325MG TABLET (HYDROcodone/ACETAMINOPHEN) PO (05:56)
[2017-11-27 06:37] LABS: HEMATOCRIT 30.9 % (36.0-47.0); HEMOGLOBIN 9.4 g/dl (12.0-15.5); MEAN CORPUSCULAR HEMOGLOBIN 24.3 pg (27.0-33.0); MEAN CORPUSCULAR HGB CONC 30.4 g/dl (32.0-36.5); MEAN CORPUSCULAR VOLUME 79.8 fl (80.0-96.0); PLATELET COUNT, AUTOMATED 521 10^3/uL (150-450); RED BLOOD COUNT 3.87 10^6/uL (4.00-5.40); RED CELL DISTRIBUTION WIDTH 22.1 % (11.5-14.5); WHITE BLOOD COUNT 8.5 10^3/uL (4.0-10.0)
[2017-11-27] MEDS: METOCLOPRAMIDE 5 MG TAB PO ×4 (06:44→21:55)
[2017-11-27] MEDS: HumaLOG INSULIN (NovoLOG) PER UNIT SC ×4 (06:45→21:00)
[2017-11-27 07:06] LABS: ANION GAP 11 MEQ/L (8-16); BLOOD UREA NITROGEN 44 MG/DL (7-18); CALCIUM LEVEL 7.9 MG/DL (8.5-10.1); CARBON DIOXIDE LEVEL 22 MEQ/L (21-32); CHLORIDE LEVEL 101 MEQ/L (98-107); CREATININE FOR GFR 3.85 MG/DL (0.55-1.30); GLOMERULAR FILTRATION RATE 12.9 (>51); PHOSPHORUS LEVEL 5.8 MG/DL (2.5-4.9); SODIUM LEVEL 134 MEQ/L (136-145)
[2017-11-27 07:08] LABS: GLUCOSE, FASTING 407 MG/DL (70-100); POTASSIUM SERUM 5.3 MEQ/L (3.5-5.1)
[2017-11-27] MEDS: ALPRAZolam 0.5 MG TAB PO ×3 (09:02→21:56)
[2017-11-27] MEDS: CANDESARTAN 4MG TABLET PO (09:29)
[2017-11-27] MEDS: METOPROLOL TART 50 MG TAB PO ×2 (09:29→21:56)
[2017-11-27] MEDS: CALCITRIOL 0.25 MCG CAP (S0169) PO (09:29)
[2017-11-27] MEDS: CLOPIDOGREL 75 MG TAB PO (09:30)
[2017-11-27] MEDS: PANTOPRAZOLE 20 MG TAB PO (09:30)
[2017-11-27] MEDS: CALCIUM ACETATE 667 MG GELCAP PO ×3 (09:30→17:27)
[2017-11-27] MEDS: ASPIRIN 81 MG ENTERIC TAB PO (09:30)
[2017-11-27] MEDS: SERTRALINE 100 MG TAB PO (09:31)
[2017-11-27] MEDS: TORSEMIDE 100 MG TAB PO (09:31)
[2017-11-27] MEDS: LEVEMIR (INSULIN DETEMIR) 1 UNITS/0.01ML SC (09:32)
[2017-11-27 11:40] LABS: BEDSIDE GLUCOSE 310 MG/DL (70-105)
[2017-11-27 16:15] LABS: BEDSIDE GLUCOSE 177 MG/DL (70-105)
[2017-11-27] MEDS: ANEXSIA, NORCO 7.5MG/325MG TABLET(HYDROCODONE/APAP) PO ×2 (16:19→21:56)
[2017-11-27 20:28] LABS: BEDSIDE GLUCOSE 94 MG/DL (70-105)
[2017-11-27] MEDS: ATORVASTATIN 20 MG TAB PO (21:55)
[2017-11-28 06:17] LABS: BEDSIDE GLUCOSE 136 MG/DL (70-105)
[2017-11-28] MEDS: METOCLOPRAMIDE 5 MG TAB PO ×4 (06:35→22:25)
[2017-11-28] MEDS: CANDESARTAN 4MG TABLET PO (06:35)
[2017-11-28] MEDS: CLOPIDOGREL 75 MG TAB PO (06:35)
[2017-11-28] MEDS: CALCITRIOL 0.25 MCG CAP (S0169) PO (06:35)
[2017-11-28] MEDS: PANTOPRAZOLE 20 MG TAB PO (06:36)
[2017-11-28] MEDS: TORSEMIDE 100 MG TAB PO (06:36)
[2017-11-28] MEDS: METOPROLOL TART 50 MG TAB PO ×2 (06:36→22:25)
[2017-11-28] MEDS: ALPRAZolam 0.5 MG TAB PO ×3 (06:36→22:25)
[2017-11-28] MEDS: SERTRALINE 100 MG TAB PO (06:37)
[2017-11-28] MEDS: ASPIRIN 81 MG ENTERIC TAB PO (06:37)
[2017-11-28] MEDS: ANEXSIA, NORCO 7.5MG/325MG TABLET(HYDROCODONE/APAP) PO (06:37)
[2017-11-28] MEDS: CALCIUM ACETATE 667 MG GELCAP PO ×3 (06:37→17:10)
[2017-11-28] MEDS: HumaLOG INSULIN (NovoLOG) PER UNIT SC ×4 (07:30→22:28)
[2017-11-28] MEDS: LEVEMIR (INSULIN DETEMIR) 1 UNITS/0.01ML SC (07:47)
[2017-11-28] MEDS: HEPARIN 1,000 UNITS/ML 10ML VIAL (FOR RADIOLOGY& DIALYSIS ONLY) XX (12:15)
[2017-11-28] MEDS: HEPARIN 1,000 UNITS/ML 10ML VIAL (FOR RADIOLOGY& DIALYSIS ONLY) IV (12:15)
[2017-11-28 13:08] LABS: BEDSIDE GLUCOSE 128 MG/DL (70-105)
[2017-11-28] MEDS: NORCO, ANEXSIA 5/325MG TABLET (HYDROcodone/ACETAMINOPHEN) PO (14:33)
[2017-11-28 19:10] LABS: BEDSIDE GLUCOSE 83 MG/DL (70-105)
[2017-11-28 21:30] LABS: BEDSIDE GLUCOSE 88 MG/DL (70-105)
[2017-11-28] MEDS: ATORVASTATIN 20 MG TAB PO (22:25)
[2017-11-29] MEDS: NORCO, ANEXSIA 5/325MG TABLET (HYDROcodone/ACETAMINOPHEN) PO ×2 (05:05→22:00)
[2017-11-29 06:27] LABS: BEDSIDE GLUCOSE 189 MG/DL (70-105)
[2017-11-29] MEDS: CALCIUM ACETATE 667 MG GELCAP PO ×3 (08:06→17:55)
[2017-11-29] MEDS: SERTRALINE 100 MG TAB PO (08:06)
[2017-11-29] MEDS: CLOPIDOGREL 75 MG TAB PO (08:06)
[2017-11-29] MEDS: CANDESARTAN 4MG TABLET PO (08:07)
[2017-11-29] MEDS: ASPIRIN 81 MG ENTERIC TAB PO (08:07)
[2017-11-29] MEDS: TORSEMIDE 100 MG TAB PO (08:07)
[2017-11-29] MEDS: METOPROLOL TART 50 MG TAB PO ×2 (08:07→21:56)
[2017-11-29] MEDS: ALPRAZolam 0.5 MG TAB PO ×3 (08:07→21:56)
[2017-11-29] MEDS: PANTOPRAZOLE 20 MG TAB PO (08:07)
[2017-11-29] MEDS: METOCLOPRAMIDE 5 MG TAB PO ×4 (08:07→21:56)
[2017-11-29] MEDS: CALCITRIOL 0.25 MCG CAP (S0169) PO (08:07)
[2017-11-29] MEDS: HumaLOG INSULIN (NovoLOG) PER UNIT SC ×4 (08:08→21:00)
[2017-11-29] MEDS: LEVEMIR (INSULIN DETEMIR) 1 UNITS/0.01ML SC (08:08)
[2017-11-29] MEDS: SENNA 8.6 MG TAB (SENOKOT) PO (08:13)
[2017-11-29 11:38] LABS: BEDSIDE GLUCOSE 262 MG/DL (70-105)
[2017-11-29] MEDS: ANEXSIA, NORCO 7.5MG/325MG TABLET(HYDROCODONE/APAP) PO (15:14)
[2017-11-29 17:28] LABS: BEDSIDE GLUCOSE 157 MG/DL (70-105)
[2017-11-29 21:51] LABS: BEDSIDE GLUCOSE 109 MG/DL (70-105)
[2017-11-29] MEDS: ATORVASTATIN 20 MG TAB PO (21:56)
[2017-11-30] MEDS: NORCO, ANEXSIA 5/325MG TABLET (HYDROcodone/ACETAMINOPHEN) PO ×3 (04:16→22:32)
[2017-11-30] MEDS: TORSEMIDE 100 MG TAB PO (05:59)
[2017-11-30] MEDS: CANDESARTAN 4MG TABLET PO (06:00)
[2017-11-30] MEDS: PANTOPRAZOLE 20 MG TAB PO (06:00)
[2017-11-30] MEDS: ASPIRIN 81 MG ENTERIC TAB PO (06:00)
[2017-11-30] MEDS: CALCITRIOL 0.25 MCG CAP (S0169) PO (06:01)
[2017-11-30] MEDS: SERTRALINE 100 MG TAB PO (06:01)
[2017-11-30] MEDS: CLOPIDOGREL 75 MG TAB PO (06:01)
[2017-11-30] MEDS: METOCLOPRAMIDE 5 MG TAB PO ×4 (06:01→20:43)
[2017-11-30] MEDS: CALCIUM ACETATE 667 MG GELCAP PO ×3 (06:01→18:35)
[2017-11-30] MEDS: ALPRAZolam 0.5 MG TAB PO ×3 (06:01→20:40)
[2017-11-30] MEDS: METOPROLOL TART 50 MG TAB PO ×2 (06:05→20:42)
[2017-11-30 06:15] LABS: BEDSIDE GLUCOSE 211 MG/DL (70-105)
[2017-11-30] MEDS: LEVEMIR (INSULIN DETEMIR) 1 UNITS/0.01ML SC (07:20)
[2017-11-30] MEDS: HumaLOG INSULIN (NovoLOG) PER UNIT SC ×4 (07:20→20:43)
[2017-11-30] MEDS: HEPARIN 1,000 UNITS/ML 10ML VIAL (FOR RADIOLOGY& DIALYSIS ONLY) IV (10:45)
[2017-11-30] MEDS: HEPARIN 1,000 UNITS/ML 10ML VIAL (FOR RADIOLOGY& DIALYSIS ONLY) XX (10:59)
[2017-11-30 12:57] LABS: BEDSIDE GLUCOSE 168 MG/DL (70-105)
[2017-11-30] MEDS ORDERED: MOM 30ML SUSPENSION UDC PO (13:15)
[2017-11-30] MEDS ORDERED: MIRALAX *UNIT DOSE* 17GM PACKET PO (14:45)
[2017-11-30] MEDS: SENNA 8.6 MG TAB (SENOKOT) PO (15:27)
[2017-11-30 17:33] LABS: BEDSIDE GLUCOSE 67 MG/DL (70-105)
[2017-11-30] MEDS: GLUCOSE 4 GM CHEW TABLET PO (18:35)
[2017-11-30 20:37] LABS: BEDSIDE GLUCOSE 158 MG/DL (70-105)
[2017-11-30] MEDS: ATORVASTATIN 20 MG TAB PO (20:40)
[2017-12-01] MEDS: SENNA 8.6 MG TAB (SENOKOT) PO ×2 (05:45→12:15)
[2017-12-01] MEDS: NORCO, ANEXSIA 5/325MG TABLET (HYDROcodone/ACETAMINOPHEN) PO (05:46)
[2017-12-01 05:51] LABS: BEDSIDE GLUCOSE 468 MG/DL (70-105)
[2017-12-01 06:53] LABS: BEDSIDE GLUCOSE 463 MG/DL (70-105)
[2017-12-01] MEDS: HumaLOG INSULIN (NovoLOG) PER UNIT SC ×2 (07:25→11:50)
[2017-12-01] MEDS: CALCIUM ACETATE 667 MG GELCAP PO ×2 (07:26→11:48)
[2017-12-01] MEDS: CANDESARTAN 4MG TABLET PO (08:24)
[2017-12-01] MEDS: TORSEMIDE 100 MG TAB PO (08:24)
[2017-12-01] MEDS: CALCITRIOL 0.25 MCG CAP (S0169) PO (08:25)
[2017-12-01] MEDS: ALPRAZolam 0.5 MG TAB PO (08:25)
[2017-12-01] MEDS: METOPROLOL TART 50 MG TAB PO (08:25)
[2017-12-01] MEDS: CLOPIDOGREL 75 MG TAB PO (08:25)
[2017-12-01] MEDS: METOCLOPRAMIDE 5 MG TAB PO ×2 (08:25→11:49)
[2017-12-01] MEDS: SERTRALINE 100 MG TAB PO (08:25)
[2017-12-01] MEDS: ASPIRIN 81 MG ENTERIC TAB PO (08:25)
[2017-12-01] MEDS: PANTOPRAZOLE 20 MG TAB PO (08:25)
[2017-12-01] MEDS: LEVEMIR (INSULIN DETEMIR) 1 UNITS/0.01ML SC (08:26)
[2017-12-01 11:41] LABS: BEDSIDE GLUCOSE 345 MG/DL (70-105)
== END 2017-12-01 13:19 | disposition home or self-care (01) | DRG 239 ==
LOC: M ED 14:38 → M ED INP 16:39 → M MS5PR 19:55
PROC: 0Y6M0Z9 Detachment at Right Foot, Partial 1st Ray, Open Approach (ICD-10-PCS; principal; 2017-11-03 17:00)
PROC: 0Y6M0ZB Detachment at Right Foot, Partial 2nd Ray, Open Approach (ICD-10-PCS; 2017-11-03 17:00)
PROC: 0Y6M0ZC Detachment at Right Foot, Partial 3rd Ray, Open Approach (ICD-10-PCS; 2017-11-03 17:00)
PROC: 0Y6M0ZD Detachment at Right Foot, Partial 4th Ray, Open Approach (ICD-10-PCS; 2017-11-03 17:00)
PROC: 0Y6M0ZF Detachment at Right Foot, Partial 5th Ray, Open Approach (ICD-10-PCS; 2017-11-03 17:00)
PROC: 03170ZF Bypass Right Brachial Artery to Lower Arm Vein, Open Approach (ICD-10-PCS; 2017-11-03 17:09)
PROC: 5A1D70Z Performance of Urinary Filtration, Intermittent, Less than 6 Hours Per Day (ICD-10-PCS; 2017-11-03 17:09)
DX: I13.2 Hypertensive heart and chronic kidney disease with heart failure and with stage 5 chronic kidney disease, or end stage renal disease (principal); G93.41 Metabolic encephalopathy; N18.6 End stage renal disease; I50.43 Acute on chronic combined systolic (congestive) and diastolic (congestive) heart failure; M86.9 Osteomyelitis, unspecified; E11.52 Type 2 diabetes mellitus with diabetic peripheral angiopathy with gangrene; D62 Acute posthemorrhagic anemia; E11.21 Type 2 diabetes mellitus with diabetic nephropathy; E11.649 Type 2 diabetes mellitus with hypoglycemia without coma; I27.20 Pulmonary hypertension, unspecified; E11.69 Type 2 diabetes mellitus with other specified complication; D63.1 Anemia in chronic kidney disease; I50.812 Chronic right heart failure; F32.9 Major depressive disorder, single episode, unspecified; B96.89 Other specified bacterial agents as the cause of diseases classified elsewhere; B95.2 Enterococcus as the cause of diseases classified elsewhere; F41.9 Anxiety disorder, unspecified; B95.61 Methicillin susceptible Staphylococcus aureus infection as the cause of diseases classified elsewhere; I70.201 Unspecified atherosclerosis of native arteries of extremities, right leg; E78.5 Hyperlipidemia, unspecified; F17.210 Nicotine dependence, cigarettes, uncomplicated; E11.22 Type 2 diabetes mellitus with diabetic chronic kidney disease; I25.10 Atherosclerotic heart disease of native coronary artery without angina pectoris; J44.9 Chronic obstructive pulmonary disease, unspecified; Z99.2 Dependence on renal dialysis; Z91.19 Patient's noncompliance with other medical treatment and regimen; Z79.82 Long term (current) use of aspirin; Z79.4 Long term (current) use of insulin; Z79.899 Other long term (current) drug therapy; Z79.51 Long term (current) use of inhaled steroids; Z88.5 Allergy status to narcotic agent; Z91.041 Radiographic dye allergy status; Z90.49 Acquired absence of other specified parts of digestive tract; Z95.9 Presence of cardiac and vascular implant and graft, unspecified; Z89.512 Acquired absence of left leg below knee; I25.2 Old myocardial infarction; Z98.62 Peripheral vascular angioplasty status

== ENCOUNTER → 2018-01-11 | Outpatient (REF) | payer MEDICARE | LOC: M LAB REF 17:47 | DX: R19.7 Diarrhea, unspecified (principal); N18.6 End stage renal disease | CPT/HCPCS: 87493 ==

== ENCOUNTER 2018-01-16 16:11 | Inpatient (IN) | payer MEDICARE, MEDICAID ==
[~2018-01-16] VITALS: Ht 172.7 cm; Wt 74.3 kg
[~2018-01-16 16:11] MED LIST: /ADVA50050 INH; ACCUKIT15 XX; ACET65TA OR; ADV250INH INH; ALPR0.25 PO; ALPR0.5T3 PO; AMLO5TAB4 PO; ASPI81TA24 PO; ASPI81TA83 PO; ASPI81TAEC PO; ATAC1TAB PO; ATOR40TA75 PO; ATROVENT0.02% INH; BACITAB PO; BREO1INH INH; CALC1CAP PO; CALC1CAP31 PO; CEFT250T OR; CEFU50TA PO; CIPR25SS OR; CLOP75TA2 PO; COLA100C2 OR; COLA100C5 PO; COZA25TA8 OR; CYCL10TA PO; DOCU100C16 PO; FAMO1TAB11 PO; FAMO40TA3 PO; FERR325T OR; FISHCAP PO; FLEXERIL PO; HUMALOG INSULIN SC; HYDR-3719 PO; INSUDET SC; INSUH10VL SC; INSUHUMDS SC; INSULADS INJ; INSULANT SC; IPRAINH INH; KLOR20TA42 PO; LANTINJ4 SC; LASI20TA OR; LASI20TA PO; LASIX PO; LEVAINH INH; LIDO2.5C15 EXT; LOPR50TA PO; LORA0.5T11 PO; LORA1TAB OR; LOSA25TA33 PO; LOSARTAN-HCTZ PO; METO50TA7 PO; MILKSUS OR; MIRC0.3I INJ; NICODIS3 TD; NITR0.1D10 TD; NITR0.4S SL; NITR4TASL SL; NOVOINJ3 SC; PATIENT COMMENTS; PEG1POW PO; PLAV75TA2 PO; PROC1INJ5 IJ; SENN1TAB10 PO; SENN8.6T17 PO; SERT-138 PO; SIMIVASTATIN PO; SODIUM BICARBONATE PO; SPIRIVA HANDIHALER; TIOT18INH INH; TORS100T PO; TORS20TA2 PO; TRAM50TA2 OR; TUMS500C PO; VENO20IN IVP; VENTAER INH; VITA500T OR; XANA0.5T PO; XOPE1.252 IN; ZOCO5TAB PO; ZOLO100T PO; [UNRECOGNIZED DRUG - OTHER] PO
[2018-01-16] MEDS ORDERED: DIAPER RELIEF PASTE (DESITIN) 60GM TOP SCH (17:15)
--- NOTE | 2018-01-16 17:31 | REP ---
Clinical: Lower chest and abdominal pain. Technique: PA and lateral. Comparison: 10/21/2017. Findings: Double-lumen dialysis catheter extends to the SVC. Visualized cardiac silhouette is stable with mild cardiomegaly again suggested. Bibasilar atelectasis and small right pleural effusion identified. No pneumothorax. Skeletal structures intact. Impression: Small right pleural effusion. Electronically Signed by Manan Jiménez MD 01/16/2018 05:21 P
[2018-01-16 17:44] LABS: BASO # 0.1 10^3/uL (0.0-0.2); EOS % 0.4 % (0.0-3.0); HEMATOCRIT 46.5 % (36.0-47.0); HEMOGLOBIN 13.4 g/dl (12.0-15.5); LYMPH # 0.5 10^3/uL (1.5-4.5); LYMPH % 9.3 % (24.0-44.0); MEAN CORPUSCULAR HEMOGLOBIN 23.9 pg (27.0-33.0); MEAN CORPUSCULAR HGB CONC 28.8 g/dl (32.0-36.5); MEAN CORPUSCULAR VOLUME 82.9 fl (80.0-96.0); MONO # 0.2 10^3/uL (0.0-0.8); MONO % 4.1 % (0.0-5.0); NEUTROPHILS # 4.3 10^3/uL (1.8-7.7); NEUTROPHILS % 83.6 % (36.0-66.0); PLATELET COUNT, AUTOMATED 274 10^3/uL (150-450); RED BLOOD COUNT 5.61 10^6/uL (4.00-5.40); WHITE BLOOD COUNT 5.1 10^3/uL (4.0-10.0)
[2018-01-16] MEDS ORDERED: AURY1TAB PO (17:58)
[2018-01-16] MEDS ORDERED: NYST1POW9 TOP (17:58)
[2018-01-16] MEDS ORDERED: FLUTISP (17:58)
[2018-01-16 18:14] LABS: ALBUMIN 2.3 GM/DL (3.2-5.2); BILIRUBIN,DIRECT 0.1 MG/DL (0.0-0.2); BILIRUBIN,TOTAL 0.3 MG/DL (0.2-1.0); C REACTIVE PROTEIN QUANTITATIV 1.82 MG/DL (0.00-0.30); CALCIUM LEVEL 7.3 MG/DL (8.5-10.1); CREATININE FOR GFR 5.17 MG/DL (0.55-1.30); GLOMERULAR FILTRATION RATE 9.2 (>51); MB/CK RELATIVE INDEX 6.85 (< OR =4); POTASSIUM SERUM 5.7 MEQ/L (3.5-5.1); TOTAL PROTEIN 6.4 GM/DL (6.4-8.2); TROPONIN I 0.03 NG/ML (< 0.10)
[2018-01-16 19:58] LABS: ERYTHROCYTE SEDIMENTATION RATE 1 mm/hr (0-30)
[2018-01-16] MEDS ORDERED: SOD POLYSTYRENE SULFONATE SUSP 15 GM/60 ML UD PO ONE (20:45)
[2018-01-16] MEDS ORDERED: ALBUTEROL 90 MCG/ACT 8GM HFA INHALER INH PRN (21:15)
[2018-01-16] MEDS ORDERED: NITROGLYCERIN 0.4 MG SUBL TABLET SL PRN (21:15)
[2018-01-16] MEDS ORDERED: DEXTROSE 50% 50 ML SYRINGE IV PRN (21:15)
[2018-01-16] MEDS ORDERED: GLUCAGON FOR INJ 1 MG VIAL (J1610) SC PRN (21:15)
[2018-01-16 21:26] LABS: MAGNESIUM LEVEL 1.7 MG/DL (1.8-2.4)
--- NOTE | 2018-01-16 21:40 | HPEPDOC ---
General Date of Admission 01/16/18 Primary Care Physician: Evelio Benjamin Chief Complaint The patient is a 57-year-old female admitted with a reason for visit of General Illness. History of Present Illness Ms. Ibarra is a 57 y/o female with past medical history of DM2, CAD s/p stenting, PVD s/p left BKA, COPD, HTN and ESRD on HD T,R,Sa. non-compliant with dialysis who presents to the ED with complaints of SOB for the past two days, diarrhea and nausea. The patient states that she went to her dialysis session last Monday and the following day woke up with profuse diarrhea and vomiting of bile, she did have a fever of 103.0. This is not unusual for her, she states she always has diarrhea and vomiting the day after a dialysis treatment. Denies recent travel or sick contacts, no muscle aches, chills or night sweats. However, she was so weak after this particular dialysis session a week ago that she could not make her follow or Monday dialysis appts., effectively missing two dialysis days. She states she is more SOB the past two days, non- exertional, and worse with laying flat, she describes some vague, sharp right breast pain that radiates to her mid sternum that has bothered her for two days, she states that the pain does not feel like her past heart attack, it apparently is worsened with inspiration and external palpation of the area of her right breast and sternum. No history of trauma. She was recently given a 10 day course ( which she states she completed) of antibiotic ( she thinks erythromycin but is unsure) by her PCP for a pus filled cyst located on the back of her scalp, apparently she thought it was red and swollen and she lanced it herself at home and states a lot of pus was exuded. PCP gave her abx for this. She states she saw vascular surgery yesterday outpatient and they wanted to bring her to the OR for debridement tomorrow of the right lower extremity/toes which she states have recently been more painful and red, she has history of toe amputations on this foot. In regards to her stool, she states there was no blood except a couple days last week she thought it looked black, she attributes this to "little orange pills they give me at dialysis", although this is the first time she states she noted black diarrhea. The diarrhea has continued to this morning and is now green/yellow and causes some vague abdominal discomfort with nausea, vomiting has subsided. She figured she should come in due to it not resolving for almost one week. Home Medications Scheduled (Auryxia) 210 Mg Tab, 420 MG PO WM, (Reported) Alprazolam (Alprazolam) 0.5 Mg Tab, 0.5 MG PO TID, (Reported) Aspirin (Aspirin EC) 81 Mg Tab, 81 MG PO DAILY, (Reported) Atorvastatin Calcium (Atorvastatin Calcium) 40 Mg Tab, 40 MG PO QHS, (Reported) Calcitriol (Calcitriol) 0.25 Mcg Cap, 0.25 MCG PO DAILY, (Reported) Candesartan Cilexetil (Atacand) 4 Mg Tab, 4 MG PO DAILY Clopidogrel Bisulfate (Clopidogrel) 75 Mg Tab, 75 MG PO DAILY, (Reported) Famotidine (Famotidine) 40 Mg Tab, 40 MG PO DAILY, (Reported) Fluticasone Propionate (Fluticasone Propionate) 50 Mcg/Act Spr, 1 SPRAY NA BID, (Reported) Fluticasone/Vilanterol (Breo Ellipta 100-25 Mcg/INH) 1 Inh Inh, 1 PUFF INH DAILY, (Reported) Insulin Aspart (Novolog Flexpen) 100 Unit/Ml Inj, 0 SC AC, (Reported) PER SLIDING SCALE Insulin Detemir (Levemir) 1 Units/0.01 Ml Susp, 30 UNITS SC QAM Metoprolol Tartrate (Metoprolol Tartrate) 50 Mg Tab, 50 MG PO BID, (Reported) Nystatin (Nystatin Powder) 100,000 Unit/Gm Pow, 0 TOP BID, (Reported) APPLY TO AFFECTED AREA(S) Senna (Senna Laxative) 8.6 Mg Tab, 2 TAB PO DAILY, (Reported) Sertraline HCl (Sertraline HCl) 100 Mg Tab, 100 MG PO DAILY, (Reported) Scheduled PRN Acetaminophen/Hydrocodone (Hydrocodone/Acetaminophen 10-325 mg) 1 Tab Tab, 1 TAB PO Q4H PRN for PAIN, (Reported) Albuterol Sulfate (Ventolin Hfa) 108 Mcg/Act Aer, 2 PUFFS INH QID PRN for SHORTNESS OF BREATH, (Reported) Nitroglycerin (Nitrostat) 0.4 Mg Subl, 0.4 MG SL Q5MP PRN for CHEST PAIN, (Reported) Allergies Coded Allergies: Codeine (Verified Allergy, Unknown, 07/11/17) hives Contrast Media (Verified Allergy, Unknown, 09/06/11) Morphine (Verified Allergy, Unknown, 07/11/17) hives Past Medical History Medical History please see HPI Surgical History cardiac cath cardiac stent placement cholecystectomy left groin vascular surgery left BKA 2013 hx right toe amputations Social History * Smoker: current smoker (5-6 cigarettes a day for 35+ years) Alcohol: Denies Drugs: denies Recent Travel/Sick Contacts: Denies: Recent travel, Recent sick contacts lives at home with her son Review of Systems Constitutional: Reports: Fever, Malaise, Weakness, Fatigue, Lethargy; Denies: Chills, Night Sweats, Weight Loss Eyes: Denies: Pain ENT: Reports: Head Aches Skin: Reports: Breakdown (right foot/toe area); Denies: Rash Pulmonary: Reports: Dyspnea, Cough (dry cough) Cardiovascular: Reports: Chest Pain, Orthopnea; Denies: Palpitations, Edema, Lt Headedness Gastrointestinal: Reports: Nausea, Abdominal Pain, Diarrhea, Melena; Denies: Vomiting, Constipation, Hematochezia Genitourinary: Denies: Dysuria, Frequency Musculoskeletal: Reports: Foot Pain (right LE) Neurological: Reports: Weakness; Denies: Numbness Psych: Reports: Mood Normal, Anxiety Physical Examination General Exam: Positive: Alert, Cooperative, No Acute Distress Eye Exam: Positive: PERRLA ENT Exam: Positive: Atraumatic, Mucous membr. moist/pink, Pharynx Normal, Tongue Midline Neck Exam: Positive: Supple, Other (posterior superior occiput area shows healing scab of prior sebacious appearing cyst, no pus or blood or erythema) Chest Exam: Positive: Wheezing, Diminished; Negative: Normal air movement Heart Exam: Positive: Rate Normal, Normal S1, Normal S2; Negative: Gallops, Murmurs, Rubs Telemetry: Positive: No significant arrhythmia Abdomen Exam: Positive: Normal bowel sounds, Soft, Tenderness (epigastric); Negative: Hepatospenomegaly Extremity Exam: Positive: Tenderness (right LE toe area); Negative: Clubbing, Cyanosis, Edema, Normal pulses (could not palpiate strong pulses in right LE, right LE shows some erythema on dorsal surface of toes, clean surgicial sutures, no pus or blood) Skin Exam: Positive: Breakdown (right LE) Psych Exam: Positive: Anxiety, Oriented x 3 Vital Signs Vital Signs Date Time Temp Pulse Resp B/P (MAP) Pulse Ox O2 Delivery O2 Flow Rate FiO2 01/16/18 19:11 63 20 01/16/18 19:01 180/84 (116) 01/16/18 18:11 86 01/16/18 16:27 97.1 Room Air Laboratory Data Labs 24H Laboratory Tests 2 01/16/18 17:22: Immature Granulocyte % (Auto) 1.6, White Blood Count 5.1, Red Blood Count 5.61H, Hemoglobin 13.4, Hematocrit 46.5, Mean Corpuscular Volume 82.9, Mean Corpuscular Hemoglobin 23.9L, Mean Corpuscular Hemoglobin Concent 28.8L, Red Cell Distribution Width 24.5H, Platelet Count 274, Neutrophils (%) (Auto) 83.6H, Lymphocytes (%) (Auto) 9.3L, Monocytes (%) (Auto) 4.1, Eosinophils (%) (Auto) 0.4, Basophils (%) (Auto) 1.0, Neutrophils # (Auto) 4.3, Lymphocytes # (Auto) 0.5L, Monocytes # (Auto) 0.2, Eosinophils # (Auto) 0.0, Basophils # (Auto) 0.1, Nucleated Red Blood Cells % (auto) 0.0, Erythrocyte Sedimentation Rate 1, Anion Gap 12, Glomerular Filtration Rate 9.2L, Lactic Acid Level 1.3, Calcium Level 7.3L, Aspartate Amino Transf (AST/SGOT) 20, Alanine Aminotransferase (ALT/SGPT) 18, Alkaline Phosphatase 229H, Total Bilirubin 0.3, Direct Bilirubin 0.1, Total Creatine Kinase 92, Creatine Kinase MB 6.0H, Creatine Kinase MB Relative Index 6.85H, Troponin I 0.03, C-Reactive Protein, Quantitative 1.82H, Total Protein 6.4, Albumin 2.3L, Albumin/Globulin Ratio 0.56L, Lipase 97 01/16/18 21:05: Bedside Glucose (Misc Panel) 298H CBC/BMP Laboratory Tests 01/16/18 17:22 Red Blood Count 5.61 H, Mean Corpuscular Volume 82.9, Mean Corpuscular Hemoglobin 23.9 L, Mean Corpuscular Hemoglobin Concent 28.8 L, Red Cell Distribution Width 24.5 H, Neutrophils (%) (Auto) 83.6 H, Lymphocytes (%) (Auto) 9.3 L, Monocytes (%) (Auto) 4.1, Eosinophils (%) (Auto) 0.4, Basophils (%) (Auto) 1.0, Neutrophils # (Auto) 4.3, Lymphocytes # (Auto) 0.5 L, Monocytes # (Auto) 0.2, Eosinophils # (Auto) 0.0, Basophils # (Auto) 0.1 Assessment/Plan 1. Acute onset and prolonged diarrhea -this is typical for the patient after dialysis sessions, however given recent antibiotic use, will conduct GI panel for C. Diff - patient afebrile and without a white count, hold antibiotic therapy for now - patient is tolerating a diet, was eating [employer] Errol on physical exam, no need for IVF, in fact we will place her back on 2 L daily fluid restriction she states she follows at home 2. Hyperkalemia -likely secondary to missed dialysis sessions -patient received Kayexalate in ED, monitor on telemetry -should see some resolution with dialysis session in AM 3. ESRD on HD -nephrology consulted, patient to be dialyzed in the morning, appreciate their help -history of non-compliance with outpatient HD 4. Atypical chest pain -likely MSK in nature, continue to monitor on telemetry, first set troponin neg. -EKG in ED noted and reviewed, no concerning st-t wave changes, nor impending or active ischemia -she is at heightened risk for ACD due to multiple comorbidities, continue to monitor for now 5. HTN -continue with home medications -likely to improve with dialysis 6. Dyslipidemia -c/w home statin therapy 7. DM2 -sliding scale -const. carb diet 8. CAD s/p stent -c/w home aspirin and plavix and metoprolol and atorvastatin -Stable, EKG in ED reviewed, no concern for ST changes or ischemia actively 9. COPD -c/w home inhalers, Oxygen therapy 10. DVT px -SCD/Teds Plan / VTE VTE Prophylaxis Ordered?: Yes GME ATTESTATION GME ATTESTATION My faculty preceptor for this patient encounter was physically present during the encounter and was fully available. All aspects of the patient interview, examination, medical decision making process, and medical care plan development were reviewed and approved by the faculty preceptor. The faculty preceptor is aware and concurs with the plan as stated in the body of this note and will attest to such by his/her cosignature. GINGER WARD DO Jan 16, 2018 21:40
[2018-01-17] MEDS: ATORVASTATIN 20 MG TAB PO SCH ×2 (00:32→21:19)
[2018-01-17] MEDS: ALPRAZolam 0.5 MG TAB PO SCH ×4 (00:33→21:19)
[2018-01-17] MEDS: METOPROLOL TART 50 MG TAB PO SCH ×3 (00:33→21:19)
[2018-01-17 00:45] VITALS: BP 147/67
[2018-01-17] MEDS: HumaLOG INSULIN (NovoLOG) PER UNIT SC SCH ×5 (01:14→21:00)
--- NOTE | 2018-01-17 05:51 | ECGEPIP ---
Stationary ECG Study [facility] - ED Test Date: 2018-01-16 Pat Name: MIGUELITO MALAVE Department: Room: - Gender: F Science Editor: justin : 1960 Requested By: Naz Rucker Order Number: [id number] Reading MD: Dmitri Conrad Measurements Intervals [place] Rate: 65 P: 44 AR: 188 QRS: -19 QRSD: 106 T: 134 QT: 460 QTc: 480 Interpretive Statements SINUS RHYTHM LEFT ATRIAL ENLARGEMENT LOW QRS VOLTAGE IN EXTREMITY LEADS POOR R WAVE PROGRESSION INFERIOR MYOCARDIAL INFARCTION, PROBABLY OLD SIMILAR TO 11/11/17 Electronically Signed On 01-17-2018 5:51:13 EDT by Dmitri Conrad
[2018-01-17 06:00] VITALS: BP 125/58
[2018-01-17] MEDS: VANCOMYCIN ORAL SOL 250MG/5ML ORAL SYRINGE PO SCH ×3 (06:08→17:47)
[2018-01-17] MEDS: ANEXSIA, NORCO 7.5MG/325MG TABLET(HYDROCODONE/APAP) PO PRN ×2 (06:09→12:53)
[2018-01-17 06:43] LABS: BASO # 0.1 10^3/uL (0.0-0.2); BASO % 0.9 % (0.0-1.0); EOS # 0.1 10^3/uL (0.0-0.50); EOS % 1.3 % (0.0-3.0); HEMOGLOBIN 11.5 g/dl (12.0-15.5); LYMPH # 0.9 10^3/uL (1.5-4.5); LYMPH % 16.5 % (24.0-44.0); MEAN CORPUSCULAR HEMOGLOBIN 24.5 pg (27.0-33.0); MEAN CORPUSCULAR HGB CONC 30.3 g/dl (32.0-36.5); MEAN CORPUSCULAR VOLUME 80.9 fl (80.0-96.0); MONO # 0.7 10^3/uL (0.0-0.8); MONO % 11.8 % (0.0-5.0); NEUTROPHILS # 3.8 10^3/uL (1.8-7.7); NEUTROPHILS % 68.6 % (36.0-66.0); PLATELET COUNT, AUTOMATED 270 10^3/uL (150-450); WHITE BLOOD COUNT 5.5 10^3/uL (4.0-10.0)
[2018-01-17 06:46] LABS: CALCIUM LEVEL 6.6 MG/DL (8.5-10.1); CREATININE FOR GFR 5.18 MG/DL (0.55-1.30); GLOMERULAR FILTRATION RATE 9.1 (>51); POTASSIUM SERUM 4.7 MEQ/L (3.5-5.1)
[2018-01-17] MEDS: SERTRALINE 100 MG TAB PO SCH (07:51)
[2018-01-17] MEDS: CLOPIDOGREL 75 MG TAB PO SCH (07:52)
[2018-01-17] MEDS: FAMOTIDINE 20 MG TAB PO SCH (07:52)
[2018-01-17] MEDS: ASPIRIN 81 MG ENTERIC TAB PO SCH (07:52)
[2018-01-17] MEDS: FLUTICASONE PROP 0.05% NASAL SPRAY 16 GM (FLONASE) SCH ×2 (07:53→21:19)
[2018-01-17] MEDS: NYSTATIN 100,000 UNITS/GM TOPICAL PWD 15 GM TOP SCH ×2 (07:53→21:20)
[2018-01-17] MEDS ORDERED: CANDESARTAN 4MG TABLET PO SCH (09:00)
[2018-01-17 09:14] LABS: IONIZED CALCIUM 4.1 MG/DL (4.5-5.3)
[2018-01-17 09:32] LABS: MAGNESIUM LEVEL 1.8 MG/DL (1.8-2.4)
[2018-01-17] MEDS ORDERED: HEPARIN 1,000 UNITS/ML 10ML VIAL (FOR RADIOLOGY& DIALYSIS ONLY) XX ONE (11:00)
[2018-01-17] MEDS ORDERED: HEPARIN 1,000 UNITS/ML 10ML VIAL (FOR RADIOLOGY& DIALYSIS ONLY) IV ONE (11:00)
[2018-01-17] MEDS ORDERED: VANCOMYCIN HCL 1,000 MG, VIAL MATE ADAPTER 1 EACH in D5W 250 ML IV SCH (13:45)
[2018-01-17 14:00] VITALS: BP 151/67
--- NOTE | 2018-01-17 14:12 | IPNPDOC ---
Text Note Date of Service The patient was seen on 01/17/18. NOTE Subjective: Pt states she has been having diarrhea over the past few days. P atient also noted that she's been having pain and erythema of her right foot wound site. She was scheduled to have surgery with Dr. Stern today outpatient. Patient also notes that she has chest discomfort at the region of the permacath site. It is tender on palpation. Objective: Vitals: (see below) General: No acute distress, laying comfortably in bed. HEENT: Moist mucous membranes. Permacath, with tenderness adjacent to it. Neck: No JVD or lymphadenopathy Cardiac: RRR, No murmurs Pulm: Diminished breath sounds at the bases b/l. No wheezing, rhonchi Abd: NT/ND + BS Ext: No edema or cyanosis. Left BKA. Right status post transmetatarsal amputation, with wound noted and sutures in place, appears to be consistent with erythema and swelling. Labs (see below) Images: Assessment/Plan 1. C. difficile diarrhea- started on vancomycin. No abdominal pain. 2. Right foot infection with sutures in place- started on vancomycin per prior cultures of enterococcus faecalis and MSSA. Discussed with Dr. Stern will see the patient and schedule her for surgery. Blood cultures pending. 3. Hypertension controlled continue current meds 4. End-stage renal disease on hemodialysis appreciate nephrology input. Patient has been noncompliant with dialysis and has been missing her sessions outpatient. 5. Diabetes mellitus continue sliding scale insulin, consistent carb diet 6. CAD status post PCI continue aspirin, Plavix, beta adeel, statin. Cardiac enzymes negative. 7. History of COPD stable DVT prophy: Heparin subcutaneous Dispo: VS,Fishbone, I+O VS, Fishbone, I+O Laboratory Tests 01/16/18 17:22 Red Blood Count 5.61 H, Mean Corpuscular Volume 82.9, Mean Corpuscular Hemoglobin 23.9 L, Mean Corpuscular Hemoglobin Concent 28.8 L, Red Cell Dist ribution Width 24.5 H, Neutrophils (%) (Auto) 83.6 H, Lymphocytes (%) (Auto) 9.3 L, Monocytes (%) (Auto) 4.1, Eosinophils (%) (Auto) 0.4, Basophils (%) (Auto) 1.0, Neutrophils # (Auto) 4.3, Lymphocytes # (Auto) 0.5 L, Monocytes # (Auto) 0.2, Eosinophils # (Auto) 0.0, Basophils # (Auto) 0.1 01/17/18 06:10 Red Blood Count 4.70, Mean Corpuscular Volume 80.9, Mean Corpuscular Hemoglobin 24.5 L, Mean Corpuscular Hemoglobin Concent 30.3 L, Red Cell Distribution Width 23.8 H, Neutrophils (%) (Auto) 68.6 H, Lymphocytes (%) (Auto) 16.5 L, Monocytes (%) (Auto) 11.8 H, Eosinophils (%) (Auto) 1.3, Basophils (%) (Auto) 0.9, Neutrophils # (Auto) 3.8, Lymphocytes # (Auto) 0.9 L, Monocytes # (Auto) 0.7, Eosinophils # (Auto) 0.1, Basophils # (Auto) 0.1, Anion Gap 13 Vital Signs Date Time Temp Pulse Resp B/P (MAP) Pulse Ox O2 Delivery O2 Flow Rate FiO2 01/17/18 13:23 18 01/17/18 07:52 70 138/60 01/17/18 06:00 98.1 95 01/17/18 00:45 Room Air I&O- Last 24 Hours up to 6 AM 01/17/18 06:00 Intake Total 150 ml Output Total 75 ml Balance 75 ml KIKE JOEL MD Jan 17, 2018 14:12
--- NOTE | 2018-01-17 15:05 | PHACANCOPD ---
PHARMACY VANCOMYCIN DOSING Pt Demographics Demographics Patient Age:57 , Weight:74.900 , Gender: female Adjusted Body Weight Date: 01/17/18, Adjusted Body Weight: Kg Events Past 24 Hours Events Past 24 Hours: YES: Dialysis; NO: Diuretic Therapy, Change in CrCl, Fever, Elevation in WBC, Pending Diagnostics, Pending Procedures, Other Vancomycin Vancomycin indication: INFECTED FOOT WOUND Vancomycin Target Ranges: 15-20 mcg/ml Vancomycin Load Y/N: No Load Dose Date Time Vancomycin Load Dose: Date: Time: Vancomycin Dose Date: 01/17/18. Current Vancomycin Dose: [1GM AFTER HD] Intermittent Dosing?: No Labs Labs Item Value Date Time White Blood Count 5.1 10^3/uL 01/16/18 1722 White Blood Count 5.5 10^3/uL 01/17/18 0610 Erythrocyte Sedimentation Rate 1 mm/hr 01/16/18 1722 Creatinine 5.17 MG/DL H 01/16/18 1722 Creatinine 5.18 MG/DL H 01/17/18 0610 C-Reactive Protein, Quantitative 1.82 MG/DL H 01/16/18 1722 Vital Signs Label Value Date Time Patient Temperature 98.1 degrees F 01/17/18 0600 Temperature Source Temporal 01/17/18 0600 Micro Microbiology 01/17/18 Stool Occult Blood (HUNG) - Final, Complete 01/17/18 Stool Occult Blood (HUNG) - Final, Complete 01/17/18 Stool Occult Blood (HUNG) - Final, Complete 01/16/18 Gastrointestinal Tract Panel (PCR) - Final, Complete Clostridium Difficile A/B Creatinine Clearance Date:01/17/18. Creatinine Clearance: . Assessment and Plan Maintaining Current Dose?: Yes Reason for dose change: No Dose Change Pharmacist Note Pharmacist Note Date: 01/17/18. Pharmacist note: Patient was started on Vancomycin today due to infected wound on her foot. Her previous wound cultures grew E.faecalis and MSSA. She is a dialysis patient with usual dialysis days of Monday, , and Monday. She has not received dialysis in over a week and therefore will receive dialysis today. They are unsure at this time what her dialysis schedule will be as they will be evaluating her day by day to see what her needs are. Currently she is set up with Vancomycin 1gm after HD and we will obtain a random level in the morning to make sure she is therapeutic range. We will continue to monitor and make adjustments as necessary. [facility] Jan 17, 2018 15:05
[2018-01-17] MEDS: VANCOMYCIN HCL 1,000 MG, VIAL MATE ADAPTER 1 EACH in D5W 250 ML IV SCH (16:29)
--- NOTE | 2018-01-17 16:29 | CR ---
DATE OF CONSULTATION: 01/17/2018 CONSULTATION REPORT FOR: Dr. Arnaud Loyd REASON FOR CONSULTATION: Management of end-stage renal disease on hemodialysis with missed dialysis sessions and hyperkalemia in this noncompliant patient. CHIEF COMPLAINT: Diarrhea. HISTORY OF PRESENT ILLNESS: Isabella Ibarra is well-known to me. She is a 57-year-old female with a past medical history of poorly controlled insulin-dependent type 2 diabetes, coronary artery disease status post stenting, severe systolic congestive heart failure with ejection fraction of only 15%, along with diastolic heart failure as well, hypertension, peripheral vascular disease status post left below-knee amputation (BKA) and right transmetatarsal amputation (TMA), chronic obstructive pulmonary disease (COPD), end-stage renal disease secondary to diabetic nephropathy and on hemodialysis on a Monday, , Monday schedule. She is chronically, severely noncompliant with dialysis and routinely misses a week of treatment. She has also recently been having infection of the right foot wound bed and has had a generally poor followup with podiatry and also multiple missed followup appointments with her vascular surgeon, Dr. Stern. The patient has poor insight into her multiple comorbid medical conditions and is generally noncompliant. She has a right upper extremity fistula which is patent but not mature and she is dialyzed via a right internal jugular (IJ) PermaCath. The patient apparently missed her last two hemodialysis sessions due to complaint of recurrent diarrhea. She mentions recent antibiotic course given by her primary care provider (PCP) for a purulent cyst of the scalp. She was found to be Clostridium (C) difficile positive and hyperkalemic. I have seen and examined the patient this morning on dialysis receiving her treatment. She is presently off schedule and she has been started on oral vancomycin for the diarrhea and she is due to see Dr. Stern for the foot. PAST MEDICAL HISTORY: As mentioned above. 1. Severe systolic congestive heart failure, ejection fraction of 15%. 2. Diastolic heart failure. 3. Coronary artery disease, status post stenting. 4. Peripheral vascular disease, status post left below-knee amputation (BKA) and right transmetatarsal amputation (TMA). 5. Poorly controlled insulin-dependent diabetes. 6. Anemia related to chronic inflammation and renal failure. 7. End-stage renal disease on hemodialysis, noncompliant. 8. Pulmonary hypertension. 9. Systemic hypertension. 10. Dyslipidemia. 11. Chronic obstructive pulmonary disease (COPD). 12. Anxiety. 13. Depression. PAST SURGICAL HISTORY: 1. Right upper extremity fistula. 2. Right internal jugular (IJ) PermaCath. 3. Left below-knee amputation (BKA). 4. Right transmetatarsal amputation (TMA). 5. Multiple vascular interventions. 6. Cholecystectomy. 7. Cardiac stents. SOCIAL HISTORY: She is a smoker. She denies alcohol and drugs. She lives at home with her son. ALLERGIES: CODEINE, CONTRAST MEDIA, MORPHINE. HOME MEDICATIONS: Reviewed and include Auryxia, Xanax, aspirin, atorvastatin, calcitriol, candesartan, Plavix, Pepcid, Advair, insulin, metoprolol, Senna, and as-needed Percocet. REVIEW OF SYSTEMS: CONSTITUTIONAL: She reports diarrhea, fatigue, weakness, lethargy. She denies weight loss. EYES: Denies change in vision or tearing. EARS, NOSE AND THROAT (ENT): She denies rhinorrhea or epistaxis or hearing changes. SKIN: She reports breakdown of the wound of the right foot. She denies pruritus. PULMONARY: She reports a dry cough. Denies hemoptysis. CARDIAC: History of heart failure and coronary artery disease as mentioned in the history of present illness (HPI). She reports edema. Denies palpitations. GASTROINTESTINAL (GI): She reports diarrhea, nausea. She is Clostridium (C) difficile positive. GENITOURINARY (): She still makes some urine. Denies dysuria or hematuria. MUSCULOSKELETAL: She reports pain in the right foot. She has amputations as mentioned in HPI. NEUROLOGIC: She reports weakness. Denies any acute arthralgias or myalgias. PSYCHIATRIC: She has a history of anxiety and depression. Hematology: no easy bleeding, or bruising. PHYSICAL EXAMINATION: VITAL SIGNS: Temperature 98.1, pulse 73, respiratory rate 20, blood pressure 125/58, saturating 95% on room air. Weight in the bed scale today is 74.9 kg. GENERAL: The patient is seen on hemodialysis receiving her maintenance treatment. She looks to be her usual self. She is complaining of discomfort, generalized but does not appear to be in any acute distress. HEENT: Extraocular muscles are intact. Tongue is moist. NECK: Supple. Right internal jugular (IJ) PermaCath is in use. CARDIAC: S1, S2, regular rate and rhythm. There is 1+ pitting edema in the lower extremities which are hardened on examination with edema. LUNGS: Show clear entry bilaterally. EXTREMITIES: There is a left below-knee amputation (BKA). The right foot has a dressing. The wound is not examined. There is a right upper extremity patent but not mature fistula with thrill and bruit. ABDOMEN: Soft, nontender. There are bowel sounds. PSYCHIATRIC: She is oriented, interactive, and cooperative with physical examination. LABORATORY DATA: White count 5.5, hemoglobin 11.5. Sodium 139, potassium 4.7, bicarbonate 15, phosphorus 7.0, magnesium 1.8. MICROBIOLOGY: Stool C. difficile positive and three stool occult blood specimens were negative. IMAGING STUDIES: Chest x-ray 01/16/2018 shows a small right pleural effusion and the dialysis catheter. INPATIENT MEDICATIONS: I held her candesartan. She otherwise continues on: - Percocet - Xanax 0.5 mg by mouth three times a day - aspirin 81 mg by mouth daily - atorvastatin 40 mg by mouth at bedtime - Plavix 75 mg by mouth daily - Pepcid 40 mg by mouth daily - Advair - heparin - insulin - metoprolol 50 mg by mouth twice a day - sertraline 100 mg by mouth daily She received a one-time dose of Kayexalate and she is on vancomycin 125 mg by mouth every six hours. PROBLEMS: 1. End-stage renal disease, on hemodialysis on Monday, , Monday schedule with a right internal jugular (IJ) PermaCath. She has a right upper extremity fistula that is patent but not mature. She is chronically noncompliant with hemodialysis. She missed her last two treatments. She is dialyzed today. She is off schedule. We are removing two liters with dialysis today. She will be dialyzed again tomorrow to bring her back to her maintenance schedule. 2. Systolic and diastolic congestive heart failure, ejection fraction of 15%. She missed her dialysis treatment. She is volume overloaded on examination with hard pitting edema in the lower extremities. She is dialyzed today with two liters fluid removal and she will be dialyzed again tomorrow to bring her back to her chronic maintenance schedule. In terms of her heart failure, she is on beta adeel and she is also on an angiotensin-receptor adeel. However, I did hold her angiotensin-receptor adeel (ARB), candesartan, due to the hyperkalemia she had yesterday. Her candesartan can now be resumed with holding parameters in view of Clostridium (C) difficile diarrhea. 3. C. difficile diarrhea. She continues on oral vancomycin. 4. Hyperkalemia due to missed dialysis sessions, already resolved. Okay to resume the candesartan. 5. Peripheral vascular disease, status post left below-knee amputation (BKA) and right transmetatarsal amputation (TMA) with overall poor followup with vascular surgery and podiatry. She is due to see Dr. Stern and reports that she was told she will need further debridement. 6. Hypertension. Blood pressures are acceptable. Continue metoprolol and resume candesartan. Holding parameters with antihypertensives. 7. Coronary artery disease and peripheral vascular disease. She continues on aspirin, Plavix and statin. She is still smoking and she is a poorly controlled diabetic. Thank you for involving me in the care of Mr. Ibarra. I will be happy to follow her along with you. STARLA
[2018-01-17] MEDS: **VANCO AFTER HD** MISC XX SCH (16:33)
[2018-01-17 22:00] VITALS: BP 138/66
[2018-01-18] MEDS: VANCOMYCIN ORAL SOL 250MG/5ML ORAL SYRINGE PO SCH ×4 (00:50→18:20)
[2018-01-18] MEDS: ANEXSIA, NORCO 7.5MG/325MG TABLET(HYDROCODONE/APAP) PO PRN ×2 (05:19→19:28)
[2018-01-18 06:00] VITALS: BP 145/68
[2018-01-18 06:56] LABS: VANCOMYCIN RANDOM 10.3 UG/ML
[2018-01-18] MEDS: HumaLOG INSULIN (NovoLOG) PER UNIT SC SCH ×4 (07:45→20:57)
[2018-01-18] MEDS ORDERED: VANCOMYCIN HCL 500 MG in D5W MINI-BAG PLUS 100 ML IV ONE (08:00)
[2018-01-18] MEDS ORDERED: HEPARIN 1,000 UNITS/ML 10ML VIAL (FOR RADIOLOGY& DIALYSIS ONLY) XX ONE (11:00)
[2018-01-18] MEDS ORDERED: HEPARIN 1,000 UNITS/ML 10ML VIAL (FOR RADIOLOGY& DIALYSIS ONLY) IV ONE (11:00)
--- NOTE | 2018-01-18 11:47 | IPNPDOC ---
Text Note Date of Service The patient was seen on 01/18/18. NOTE Subjective: Pt states she still has diarrhea. She notes that she's developed a productive cough and SOB, which has increased today. Objective: Vitals: (see below) General: No acute distress, laying comfortably in bed. HEENT: Moist mucous membranes. Permacath, with tenderness adjacent to it. Neck: No JVD or lymphadenopathy Cardiac: RRR, No murmurs Pulm: Diminished breath sounds at the bases b/l. No wheezing. + rhonchi Abd: NT/ND + BS Ext: No edema or cyanosis. Left BKA. Right status post transmetatarsal ampu tation, with wound noted and sutures in place, appears to be consistent with erythema and swelling. Labs (see below) Images: CT Chest pending. CT foot pending. Assessment/Plan 1. C. difficile diarrhea- started on vancomycin. No abdominal pain. 2. Right foot infection with sutures in place- started on vancomycin per prior cultures of enterococcus faecalis and MSSA. Discussed with Dr. Stern will see the patient and schedule her for surgery. Blood cultures pending. 3. ? PNA - productive cough, SOB. CT chest pending. Started on Zosyn. 4. Hypertension controlled continue current meds 5. End-stage renal disease on hemodialysis appreciate nephrology input. Patient has been noncompliant with dialysis and has been missing her sessions outpatient. 6. Diabetes mellitus continue sliding scale insulin, consistent carb diet 7. CAD status post PCI continue aspirin, Plavix, beta adeel, statin. Cardiac enzymes negative. 8. History of COPD stable DVT prophy: Heparin subcutaneous VS,Fishbone, I+O VS, Fishbone, I+O Vital Signs Date Time Temp Pulse Resp B/P (MAP) Pulse Ox O2 Delivery O2 Flow Rate FiO2 01/18/18 09:09 18 01/18/18 06:00 97.6 75 145/68 (93) 90 Room Air I&O- Last 24 Hours up to 6 AM 01/18/18 06:00 Intake Total 640 ml Output Total 2000 ml Balance -1360 ml KIKE JOEL MD Jan 18, 2018 11:47
[2018-01-18 11:55] LABS: HEMATOCRIT 38.4 % (36.0-47.0); HEMOGLOBIN 11.5 g/dl (12.0-15.5); MEAN CORPUSCULAR HGB CONC 29.9 g/dl (32.0-36.5); PLATELET COUNT, AUTOMATED 229 10^3/uL (150-450)
[2018-01-18] MEDS ORDERED: ALBUTEROL SULFATE 2.5 MG/0.5 ML INH NEB SOLN INH PRN (12:00)
[2018-01-18] MEDS: IPRATROPIUM 0.5MG/ALBUTEROL 2.5MG INH SOL UD 3ML (DUONEB)(J7620) NEB SCH ×4 (12:00→23:00)
[2018-01-18] MEDS ORDERED: PIPERACILLIN/TAZOBACTAM SOD 2.25 GM in D5W MINI-BAG PLUS 50 ML IV SCH (12:00)
[2018-01-18 12:11] LABS: ALBUMIN 2.1 GM/DL (3.2-5.2); BILIRUBIN,TOTAL 0.4 MG/DL (0.2-1.0); C REACTIVE PROTEIN QUANTITATIV 2.56 MG/DL (0.00-0.30); CALCIUM LEVEL 6.3 MG/DL (8.5-10.1); CREATININE FOR GFR 3.45 MG/DL (0.55-1.30); GLOMERULAR FILTRATION RATE 14.6 (>51); MAGNESIUM LEVEL 1.5 MG/DL (1.8-2.4); POTASSIUM SERUM 4.2 MEQ/L (3.5-5.1); TOTAL PROTEIN 5.5 GM/DL (6.4-8.2)
[2018-01-18] MEDS: SERTRALINE 100 MG TAB PO SCH (13:04)
[2018-01-18] MEDS: CLOPIDOGREL 75 MG TAB PO SCH (13:04)
[2018-01-18] MEDS: FAMOTIDINE 20 MG TAB PO SCH (13:04)
[2018-01-18] MEDS: ALPRAZolam 0.5 MG TAB PO SCH ×3 (13:04→20:56)
[2018-01-18] MEDS: CANDESARTAN 4MG TABLET PO SCH (13:05)
[2018-01-18] MEDS: ASPIRIN 81 MG ENTERIC TAB PO SCH (13:05)
[2018-01-18] MEDS: METOPROLOL TART 50 MG TAB PO SCH ×2 (13:05→20:56)
[2018-01-18] MEDS: guaiFENesin ER 600 MG TAB PO SCH ×2 (13:05→20:55)
[2018-01-18] MEDS: FLUTICASONE PROP 0.05% NASAL SPRAY 16 GM (FLONASE) SCH ×2 (13:05→20:57)
[2018-01-18] MEDS: NYSTATIN 100,000 UNITS/GM TOPICAL PWD 15 GM TOP SCH ×2 (13:06→20:57)
[2018-01-18 14:00] VITALS: BP 150/62
--- NOTE | 2018-01-18 15:23 | IPN ---
DATE: 01/18/2018 SUBJECTIVE: The patient is seen and examined this morning on dialysis receiving her maintenance treatment. She complains of a productive cough with brownish sputum. She is tolerating her hemodialysis treatment without any issues. She is pending a CT chest and a CT of the foot after dialysis today. She reports she is still having ongoing diarrhea. There were eight bowel movements recorded yesterday. VITAL SIGNS: Temperature 97.6, pulse 75, respiratory rate 18, blood pressure 145/68, saturating 90% on room air. Intake yesterday was 540. Dialysis yesterday removed 1999. Weight in the bed scale today is 74.9 kg. GENERAL: The patient is seen on dialysis, sitting upright, awake, alert, in no acute distress. HEENT: Extraocular muscles are intact. Dentition is poor. NECK: Supple. There is a right internal jugular (IJ) PermaCath presently in use. CARDIAC: S1, S2, regular rate and rhythm. LUNGS: Show scattered rhonchus and diminished breath sounds at the bases. She is coughing. ABDOMEN: Soft, nontender. Positive bowel sounds. EXTREMITIES: Show a left below-knee amputation (BKA) and a right transmetatarsal amputation (TMA) with a dressing over it. There is some hard edema present in both lower extremities. There is a right upper extremity brachiocephalic fistula with thrill and bruit. LABORATORY DATA: White count 5.0, hemoglobin 11.5. Sodium 139, potassium 4.2, bicarbonate 20, magnesium 1.5, CRP 2.5. IMAGING STUDIES: CT chest and CT foot pending. INPATIENT MEDICATIONS: She continues on vancomycin and Zosyn. She is started on Mucinex and albuterol and DuoNebs. Remainder of medications are unchanged from prior. PROBLEMS: 1. End-stage renal disease, on hemodialysis on a Monday, , Monday schedule. The patient is chronically noncompliant. She was dialyzed yesterday off of her schedule as she had missed a few treatments. We are dialyzing her again today to bring her back on schedule. Goal fluid removal today will be about two liters. She does have peripheral edema and is in decompensated heart failure due to missed dialysis treatments. She has a maturing right upper extremity fistula which needs further vascular intervention. At present, she is dialyzed via right internal jugular (IJ) PermaCath. 2. Hypertension. Blood pressures are acceptable. Continue current regimen. Her candesartan is resumed. 3. Productive cough and complaint of shortness of breath. I note she has been started on Zosyn by the primary team along with the usual bronchodilators and there is a noncontrast CT chest pending. 4. Coronary artery disease with systolic and diastolic congestive heart failure, ejection fraction of 15%, missed dialysis treatments, hard pitting edema in lower extremities, being dialyzed today again with about two liters to be removed. In terms of heart failure, she is on beta adeel and angiotensin-receptor adeel. In terms of coronary artery disease, she continues on aspirin, statin and Plavix. 5. Peripheral vascular disease, status post left below the knee amputation and right transmetatarsal amputation (TMA) with overall poor followup with vascular surgery and podiatry. She is pending further vascular intervention for her right foot. 6. Clostridium (C) difficile diarrhea. Eight bowel movements recorded yesterday. She continues on oral vancomycin. She reports a good appetite. 7. Insulin-dependent diabetes, overall long-term poorly controlled. Last A1c in July 2017 was 9.8%. Insulin is adjusted as per the primary team.
--- NOTE | 2018-01-18 15:26 | REP ---
Clinical: Acute cough. Technique: Axial noncontrast images from the thoracic inlet to the upper abdomen with coronal and sagittal re-formations. Findings: Small to moderate right pleural effusion with passive atelectasis noted. Remainder of lung portillo are relatively clear. Tracheobronchial tree is patent. No pneumothorax. Cardiomegaly suggested without pericardial effusion. Atherosclerotic changes to the thoracic aorta and coronary arteries noted. No obvious adenopathy. Musculoskeletal structures are intact. Impression: Small to moderate pleural effusion. Chronic cardiomegaly. Electronically Signed by Manan Jiménez MD 01/18/2018 03:18 P
--- NOTE | 2018-01-18 15:47 | REP ---
Clinical: Infection. Technique: Axial noncontrast images with coronal and sagittal re-formations. Findings: Diffuse subcutaneous infiltration is appreciated consistent with the given history of infectious/inflammatory disease. The patient is noted to be status post amputation at the tarsal head level. No focal drainable collection or subcutaneous emphysema appreciated. Impression: Status post amputation. Overlying soft tissue swelling and infiltration consistent with infection and inflammatory changes. No obvious drainable collection or subcutaneous emphysema. Consider MRI if underlying osteomyelitis is of concern. Electronically Signed by Manan Jiménez MD 01/18/2018 03:39 P
[2018-01-18] MEDS: **VANCO AFTER HD** MISC XX SCH (15:56)
[2018-01-18] MEDS: ATORVASTATIN 20 MG TAB PO SCH (20:56)
[2018-01-18 22:00] VITALS: BP 114/86
[2018-01-19] MEDS: VANCOMYCIN ORAL SOL 250MG/5ML ORAL SYRINGE PO SCH ×5 (00:22→22:59)
[2018-01-19] MEDS: IPRATROPIUM 0.5MG/ALBUTEROL 2.5MG INH SOL UD 3ML (DUONEB)(J7620) NEB SCH ×5 (04:00→20:00)
[2018-01-19] MEDS: ANEXSIA, NORCO 7.5MG/325MG TABLET(HYDROCODONE/APAP) PO PRN ×3 (05:34→22:59)
[2018-01-19 06:00] VITALS: BP 152/61
[2018-01-19 06:59] LABS: CALCIUM LEVEL 7.3 MG/DL (8.5-10.1); CREATININE FOR GFR 2.92 MG/DL (0.55-1.30); GLOMERULAR FILTRATION RATE 17.7 (>51); MAGNESIUM LEVEL 1.7 MG/DL (1.8-2.4); PHOSPHORUS LEVEL 4.3 MG/DL (2.5-4.9); POTASSIUM SERUM 4.3 MEQ/L (3.5-5.1)
[2018-01-19] MEDS: LEVEMIR (INSULIN DETEMIR) 1 UNITS/0.01ML SC SCH (08:01)
[2018-01-19] MEDS: HumaLOG INSULIN (NovoLOG) PER UNIT SC SCH ×4 (08:02→21:00)
[2018-01-19] MEDS: CANDESARTAN 4MG TABLET PO SCH (08:04)
[2018-01-19] MEDS: guaiFENesin ER 600 MG TAB PO SCH ×2 (08:04→21:02)
[2018-01-19] MEDS: SERTRALINE 100 MG TAB PO SCH (08:04)
[2018-01-19] MEDS: METOPROLOL TART 50 MG TAB PO SCH ×2 (08:05→21:03)
[2018-01-19] MEDS: ASPIRIN 81 MG ENTERIC TAB PO SCH (08:05)
[2018-01-19] MEDS: FAMOTIDINE 20 MG TAB PO SCH (08:05)
[2018-01-19] MEDS: ALPRAZolam 0.5 MG TAB PO SCH ×3 (08:05→21:03)
[2018-01-19] MEDS: CLOPIDOGREL 75 MG TAB PO SCH (08:06)
[2018-01-19] MEDS: NYSTATIN 100,000 UNITS/GM TOPICAL PWD 15 GM TOP SCH ×2 (08:06→21:04)
[2018-01-19] MEDS: FLUTICASONE PROP 0.05% NASAL SPRAY 16 GM (FLONASE) SCH ×2 (08:07→21:03)
[2018-01-19] MEDS: DIAPER RELIEF PASTE (DESITIN) 60GM TOP SCH (09:00)
[2018-01-19] MEDS: SANTYL OINT 30GM TOP SCH (09:00)
[2018-01-19] MEDS ORDERED: MAG SULF 1GM/100ML (MAG RUN) 1 GM in APPROPRIATE DILUENT 1 EA IV ONE (11:00)
--- NOTE | 2018-01-19 11:55 | IPNPDOC ---
Text Note Date of Service The patient was seen on 01/19/18. NOTE Subjective:Diarrhea improving. No Cough. Mild tenderness at the perm a cath site. Objective: Vitals: (see below) General: No acute distress, laying comfortably in bed. HEENT: Moist mucous membranes. Permacath, with tenderness adjacent to it. Neck: No JVD or lymphadenopathy Cardiac: RRR, No murmurs Pulm: Diminished breath sounds at the bases b/l. No wheezing. + rhonchi Abd: Tenderness in the lower quad. No rebound/guarding/rigidity./ND + BS Ext: No edema or cyanosis. Left BKA. Right status post transmetatarsal amputation, with wound noted and sutures in place, appears to be consistent with erythema and swelling. Labs (see below) Images: CT Chest pending. CT foot pending. Assessment/Plan 1. C. difficile diarrhea- started on vancomycin. No abdominal pain. CT abd/pelvis pending. 2. Right foot infection with sutures in place- started on vancomycin per prior cultures of enterococcus faecalis and MSSA. Discussed with Dr. Stern will see the patient and schedule her for surgery. Blood cultures pending. 3. Cough resolved. CT chest negative for infiltrate. 4. Hypertension controlled continue current meds 5. End-stage renal disease on hemodialysis appreciate nephrology input. Patient has been noncompliant with dialysis and has been missing her sessions ou tpatient. 6. Diabetes mellitus continue sliding scale insulin, consistent carb diet 7. CAD status post PCI continue aspirin, Plavix, beta adeel, statin. Cardiac enzymes negative. 8. History of COPD stable DVT prophy: Heparin subcutaneous Prognosis guarded. VS,Fishbone, I+O VS, Fishbone, I+O Laboratory Tests 01/19/18 05:55 Calcium Level 7.3 #L Vital Signs Date Time Temp Pulse Resp B/P (MAP) Pulse Ox O2 Delivery O2 Flow Rate FiO2 01/19/18 08:05 89 145/59 01/19/18 06:04 18 95 Room Air 01/19/18 06:00 97.8 I&O- Last 24 Hours up to 6 AM 01/19/18 06:00 Intake Total 1475 ml Output Total 2000 ml Balance -525 ml KIKE JOEL MD Jan 19, 2018 11:55
[2018-01-19 14:00] VITALS: BP 158/62
[2018-01-19] MEDS ORDERED: VANCOMYCIN HCL 1,000 MG, VIAL MATE ADAPTER 1 EACH in D5W 250 ML IV ONE (14:00)
[2018-01-19] MEDS: **VANCO AFTER HD** MISC XX SCH (15:18)
--- NOTE | 2018-01-19 16:35 | IPN ---
DATE: 01/19/2018 SUBJECTIVE: Isabella is seen and examined this morning at the bedside. She complains that she is still having diarrhea, although it seems to be improving. She is tolerating oral intake. She had a CT of the chest and CT of the extremities done yesterday, which I reviewed. She tolerated dialysis yesterday with 2 liters of fluid removed without any issues. She is still complaining of congestion. VITAL SIGNS: Temperature 97.8, pulse 84, respiratory rate 20, blood pressure 152/61, saturating 91-95% on room air. Intake yesterday 725. Dialysis yesterday removed 2000 mL. There were four bowel movements recorded yesterday and four voids recorded yesterday. Weight in the bed scale today is not recorded. GENERAL: She is seen lying in bed, lateral recumbent in no acute distress. Extraocular muscles are intact. Tongue is moist. NECK: Supple. There is a right internal jugular (IJ) Perm-A-Cath with new dressing. CARDIAC: Regular rate and rhythm, S1, S2. LUNGS: Show some tightness and mild diffuse wheeze. There is occasional rhonchus. ABDOMEN: Soft and nontender. There is a fistula in the right upper extremity, which is patent but not mature, and has a thrill. The lower extremities show a left below-knee amputation (BKA) and a right transmetatarsal amputation ((TMA). There is dressing on the right foot wound, and there is discharge present on dressing. Her peripheral edema is decreased from prior. NEUROLOGIC: She is at her usual baseline mentation and interactive. LABORATORY DATA: White count 5.0, hemoglobin 11.5. Sodium 135, potassium 4.3, bicarbonate 20, glucose 389, magnesium 1.7. CT of the chest January 18, noncontrast, shows a small to moderate right-sided pleural effusion, and the remainder of the lungs portillo is relatively clear. CT of the right foot, noncontrast, shows some soft tissue swelling and infiltration without obvious drainable collection. INPATIENT MEDICATIONS: She is receiving 1 gram of intravenous (IV) magnesium today. She continues on vancomycin dosed with dialysis. Her insulin was adjusted per the primary team. Remainder of medications is unchanged from prior. PROBLEMS: 1. End-stage renal disease, on hemodialysis on a Monday, , Monday schedule, chronically noncompliant. Presently being dialyzed with a right IJ Perm-A-Cath while we wait for her fistula to mature. She sees Dr. Stern for fistula ballooning and fistuloplasty as needed. Next dialysis treatment will be on Monday. She is mildly hypervolemic, but her acid base and electrolytes are otherwise acceptable. 2. Clostridium (C) difficile diarrhea. She continues to complain of watery bowel movements. She is on oral vancomycin. There were four bowel movements yesterday, which is decreased from prior. 3. Hypertension. Blood pressure is acceptable. She is continued on her home regimen. 4. Coronary artery disease with systolic and diastolic congestive heart failure, ejection fraction 15%. Missed dialysis treatments. She received serial dialysis on Monday and . She is back on her chronic schedule. Her edema is decreased. In terms of heart rate, she continues on beta adeel and angiotensin receptor adeel. In terms of coronary artery disease, she continues on aspirin, statin, Plavix. 5. Peripheral vascular disease, status post left BKA and right TMA. She is pending further vascular intervention for the right foot wound. CT is noted. 6. Poorly controlled insulin-dependent diabetes. Glucose is 389 on the chemistry today. Insulin is adjusted per the primary team. MTDD
[2018-01-19] MEDS: CEPACOL LOZENGE PO PRN (18:22)
[2018-01-19] MEDS: ATORVASTATIN 20 MG TAB PO SCH (21:02)
[2018-01-19 22:00] VITALS: BP 141/66
[2018-01-20] MEDS: IPRATROPIUM 0.5MG/ALBUTEROL 2.5MG INH SOL UD 3ML (DUONEB)(J7620) NEB SCH ×7 (03:28→23:28)
[2018-01-20 06:00] VITALS: BP 138/77
[2018-01-20] MEDS: VANCOMYCIN ORAL SOL 250MG/5ML ORAL SYRINGE PO SCH ×4 (06:17→23:23)
[2018-01-20] MEDS: ANEXSIA, NORCO 7.5MG/325MG TABLET(HYDROCODONE/APAP) PO PRN ×2 (06:18→22:26)
[2018-01-20] MEDS: CANDESARTAN 4MG TABLET PO SCH (07:29)
[2018-01-20] MEDS: FAMOTIDINE 20 MG TAB PO SCH (07:29)
[2018-01-20] MEDS: DIAPER RELIEF PASTE (DESITIN) 60GM TOP SCH (07:29)
[2018-01-20] MEDS: CLOPIDOGREL 75 MG TAB PO SCH (07:29)
[2018-01-20] MEDS: ASPIRIN 81 MG ENTERIC TAB PO SCH (07:29)
[2018-01-20] MEDS: ALPRAZolam 0.5 MG TAB PO SCH ×3 (07:30→22:20)
[2018-01-20] MEDS: guaiFENesin ER 600 MG TAB PO SCH ×2 (07:30→22:20)
[2018-01-20] MEDS: METOPROLOL TART 50 MG TAB PO SCH ×2 (07:30→22:20)
[2018-01-20] MEDS: LEVEMIR (INSULIN DETEMIR) 1 UNITS/0.01ML SC SCH (07:31)
[2018-01-20] MEDS: HumaLOG INSULIN (NovoLOG) PER UNIT SC SCH ×4 (07:32→22:22)
[2018-01-20] MEDS: FLUTICASONE PROP 0.05% NASAL SPRAY 16 GM (FLONASE) SCH ×2 (07:34→22:23)
[2018-01-20] MEDS: NYSTATIN 100,000 UNITS/GM TOPICAL PWD 15 GM TOP SCH ×2 (07:34→22:23)
[2018-01-20] MEDS: SERTRALINE 100 MG TAB PO SCH (07:35)
[2018-01-20] MEDS ORDERED: HEPARIN 1,000 UNITS/ML 10ML VIAL (FOR RADIOLOGY& DIALYSIS ONLY) IV ONE (12:00)
[2018-01-20] MEDS ORDERED: HEPARIN 1,000 UNITS/ML 10ML VIAL (FOR RADIOLOGY& DIALYSIS ONLY) XX ONE (12:00)
--- NOTE | 2018-01-20 13:05 | IPNPDOC ---
Text Note Date of Service The patient was seen on 01/20/18. NOTE Subjective: Patient seen and examined at bedside. No acute overnight events reported. States her diarrhea is improving. Objective: Vitals: (see below) General: No acute distress, laying comfortably in bed. HEENT: NC/AT, MMM Neck: right IJ in place Cardiac: RRR, No murmurs Pulm: Diminished breath sounds at the bases b/l. No wheezing. + rhonchi Abd: Tenderness in the lower quad. No rebound/guarding/rigidity./ND + BS Ext: No edema or cyanosis. Left BKA. Right transmetatarsal amputation, with wound noted and sutures in place, appears to be consistent with erythema and swelling. RUE fistula. Assessment/Plan: 57 yo female for # C. difficile diarrhea - PO vancomycin. No abdominal pain. Diarrhea improving. # Right foot infection with sutures in place- started on vancomycin per prior cultures of enterococcus faecalis and MSSA. Discussed with Dr. Stern will see the patient and schedule her for surgery. Blood cultures pending. # Cough resolved. CT chest negative for infiltrate. # Hypertension controlled continue current meds # ESRD/HD - dialyzed through right IJ waiting for fistula to mature - noncompliant with dialysis and has been missing her sessions outpatient. # Diabetes mellitus - poorly controlled - continue sliding scale insulin with basal insulin adjusted - she uses 30 units qam at home; consistent carb diet # CAD status post PCI continue aspirin, Plavix, beta adeel, statin. Cardiac enzymes negative. #ischemic cardiomyopathy - LVEF 15% #PVD - s/p left BKA, right TMA - follow as per vascular - assistance appreciated # History of COPD stable # non-compliance - further complicating factor to medical care DVT prophy: mechanical Prognosis guarded. VS,Fishbone, I+O VS, Fishbone, I+O Vital Signs Date Time Temp Pulse Resp B/P (MAP) Pulse Ox O2 Delivery O2 Flow Rate FiO2 01/20/18 07:30 78 138/78 01/20/18 06:48 18 91 01/20/18 06:18 Room Air 01/20/18 06:00 98.2 I&O- Last 24 Hours up to 6 AM 01/20/18 05:59 Intake Total 1810 ml Balance 1810 ml JAVIER ORDONEZ MD Jan 20, 2018 13:05
[2018-01-20 14:00] VITALS: BP 130/70
[2018-01-20] MEDS: SANTYL OINT 30GM TOP SCH (14:31)
--- NOTE | 2018-01-20 15:41 | PHACANCOPD ---
PHARMACY VANCOMYCIN DOSING Pt Demographics Demographics Patient Age:57 , Weight:74.900 , Gender: female Adjusted Body Weight Date: 01/17/18, Adjusted Body Weight: Kg Events Past 24 Hours Events Past 24 Hours: NO: Dialysis, Diuretic Therapy, Change in CrCl, Fever, Elevation in WBC, Pending Diagnostics, Pending Procedures, Other Vancomycin Vancomycin indication: INFECTED FOOT WOUND Vancomycin Target Ranges: 15-20 mcg/ml Vancomycin Load Y/N: No Load Dose Date Time Vancomycin Load Dose: Date: Time: Vancomycin Dose Date: 01/17/18. Current Vancomycin Dose: [1GM AFTER HD] Intermittent Dosing?: No Labs Labs Item Value Date Time White Blood Count 5.5 10^3/uL 01/17/18 0610 White Blood Count 5.0 10^3/uL 01/18/18 0601 Creatinine 3.45 MG/DL H 01/18/18 0609 Creatinine 2.92 MG/DL H 01/19/18 0555 Vital Signs Label Value Date Time Patient Temperature 98.8 degrees F 01/20/18 1400 Temperature Source Temporal 01/20/18 1400 Micro Microbiology 01/17/18 Stool Occult Blood (HUNG) - Final, Complete 01/17/18 Stool Occult Blood (HUNG) - Final, Complete 01/17/18 Stool Occult Blood (HUNG) - Final, Complete 01/16/18 Gastrointestinal Tract Panel (PCR) - Final, Complete Clostridium Difficile A/B Creatinine Clearance Date:01/17/18. Creatinine Clearance: . Assessment and Plan Maintaining Current Dose?: No Reason for dose change: Trough too high Pharmacist Note Pharmacist Note 01/20: Patient's random came back at 32.8 today. Her vancomycin was put on hold due to the high random this morning. She is receiving dialysis today and we will reevaluate random in the morning. We will continue to monitor and make adjustments as necessary. Date: 01/17/18. Pharmacist note: Patient was started on Vancomycin today due to infected wound on her foot. Her previous wound cultures grew E.faecalis and MSSA. She is a dialysis patient with usual dialysis days of Monday, , and Monday. She has not received dialysis in over a week and therefore will receive dialysis today. They are unsure at this time what her dialysis schedule will be as they will be evaluating her day by day to see what her needs are. Currently she is set up with Vancomycin 1gm after HD and we will obtain a random level in the morning to make sure she is therapeutic range. We will continue to monitor and make adjustments as necessary. RAY SÁNCHEZ PHARMACY Jan 20, 2018 15:41
[2018-01-20 22:00] VITALS: BP 135/66
[2018-01-20] MEDS: ATORVASTATIN 20 MG TAB PO SCH (22:20)
[2018-01-20] MEDS: SENNA 8.6 MG TAB (SENOKOT) PO PRN (23:23)
[2018-01-21] MEDS: IPRATROPIUM 0.5MG/ALBUTEROL 2.5MG INH SOL UD 3ML (DUONEB)(J7620) NEB SCH ×5 (04:00→19:52)
[2018-01-21 06:00] VITALS: BP 161/76
[2018-01-21] MEDS: VANCOMYCIN ORAL SOL 250MG/5ML ORAL SYRINGE PO SCH ×3 (06:27→17:44)
[2018-01-21] MEDS: ANEXSIA, NORCO 7.5MG/325MG TABLET(HYDROCODONE/APAP) PO PRN (06:30)
[2018-01-21] MEDS: LEVEMIR (INSULIN DETEMIR) 1 UNITS/0.01ML SC SCH (08:08)
[2018-01-21] MEDS: HumaLOG INSULIN (NovoLOG) PER UNIT SC SCH ×4 (08:08→20:35)
[2018-01-21] MEDS: CANDESARTAN 4MG TABLET PO SCH (08:12)
[2018-01-21] MEDS: guaiFENesin ER 600 MG TAB PO SCH ×2 (08:13→20:35)
[2018-01-21] MEDS: CLOPIDOGREL 75 MG TAB PO SCH (08:13)
[2018-01-21] MEDS: ASPIRIN 81 MG ENTERIC TAB PO SCH (08:13)
[2018-01-21] MEDS: SERTRALINE 100 MG TAB PO SCH (08:13)
[2018-01-21] MEDS: FAMOTIDINE 20 MG TAB PO SCH (08:13)
[2018-01-21] MEDS: ALPRAZolam 0.5 MG TAB PO SCH ×3 (08:16→20:35)
[2018-01-21] MEDS: METOPROLOL TART 50 MG TAB PO SCH ×2 (08:16→20:35)
[2018-01-21] MEDS: SANTYL OINT 30GM TOP SCH (08:17)
[2018-01-21] MEDS: DIAPER RELIEF PASTE (DESITIN) 60GM TOP SCH (08:17)
[2018-01-21] MEDS: NYSTATIN 100,000 UNITS/GM TOPICAL PWD 15 GM TOP SCH ×2 (08:17→20:36)
[2018-01-21] MEDS: FLUTICASONE PROP 0.05% NASAL SPRAY 16 GM (FLONASE) SCH ×2 (08:18→20:36)
--- NOTE | 2018-01-21 08:26 | IPN ---
DATE: 01/20/2018 SUBJECTIVE: Patient was seen and examined at the bedside today morning during hemodialysis procedure. She was tolerating the hemodialysis procedure well. She reported that she is still having loose bowel movements because of her Clostridium (C.) difficile. She is otherwise hemodynamically stable. OBJECTIVE: VITAL SIGNS: Temperature is 98.2 degrees Fahrenheit, blood pressure 138/77, pulse is 70, respiratory rate of 18, saturating 91% on room air. Intake and output: Urine output is not recorded. She had six bowel movements yesterday, two bowel movements so far today since overnight. Weight on the bed scale is not available because she refused it. PHYSICAL EXAMINATION: GENERAL: The patient is awake, alert and oriented times three. Agitated. Laying in bed. Getting hemodialysis done. HEAD/NECK: Extraocular muscles intact. Pupils equally round and reactive to light. Mucous membranes are moist. Neck is supple. There is no jugular venous distention (JVD). She has a right IJ tunneled hemodialysis catheter. CARDIOVASCULAR: S1, S2, regular rate. Trace edema of the bilateral lower extremities. RESPIRATORY: Chest is clear to auscultation bilaterally. Bilateral equal air entry. No rales or rhonchi. ABDOMEN: Soft. Positive bowel sounds. Nontender. No organomegaly. MUSCULOSKELETAL: Patient has a dressing on the right foot, transmetatarsal amputation site and she has a left below knee amputation. CENTRAL NERVOUS SYSTEM: No focal deficit. Power is 5/5 in bilateral upper extremities. PSYCHIATRIC: Patient is irritated and agitated. AV ACCESS: Patient has a right upper arm AV fistula with a positive thrill and bruit, but is not ready for use. Right IJ tunneled hemodialysis catheter is being used for dialysis. LAB REVIEW: CBC showed a WBC of 5, hemoglobin 11.5, platelets are 2029. BMP showed sodium 135, potassium 4.3, chloride 101, bicarbonate 20, BUN 30, creatinine is 2.9. These labs are from yesterday. CURRENT INPATIENT MEDICATIONS: Patient's medications were all reviewed by me. She continues to be on oral vancomycin. She is also getting vancomycin IV with hemodialysis. No other change in the medications today as compared with yesterday. ASSESSMENT AND PLAN: 1. End-stage renal disease with hemodialysis. Patient's regular dialysis days are Monday, , Monday. She is being dialyzed today as per her regular schedule. Ultrafiltration goal will be around 2 liters as tolerated by her blood pressure. 2. C. difficile colitis. Patient continues to be on oral vancomycin. Her diarrhea is slowly improving. 3. Chronic combined systolic and diastolic congestive heart failure. Patient missed multiple hemodialysis sessions because of diarrhea. Volume status is being optimized with hemodialysis. Continue current dose of metoprolol 50 mg by mouth twice a day and candesartan 4 mg by mouth daily. Left ventricular ejection fraction on latest echocardiogram is 15%. 4. Peripheral vascular disease. Status post right transmetatarsal amputation. Patient reports that her TMA amputation site is infected. She continues to be on IV vancomycin for this. She is pending further evaluation by vascular surgery for the infected TMA site. 5. Right upper extremity AV fistula site. It is not mature yet. Patient reports that when she goes for right foot treatment by vascular surgery she will get angiogram and possible ballooning of the AV fistula as well.
[2018-01-21 08:32] LABS: BASO # 0.1 10^3/uL (0.0-0.2); BASO % 0.8 % (0.0-1.0); EOS # 0.1 10^3/uL (0.0-0.50); EOS % 1.3 % (0.0-3.0); HEMATOCRIT 39.4 % (36.0-47.0); HEMOGLOBIN 11.8 g/dl (12.0-15.5); LYMPH # 1.1 10^3/uL (1.5-4.5); LYMPH % 17.4 % (24.0-44.0); MEAN CORPUSCULAR HEMOGLOBIN 23.8 pg (27.0-33.0); MEAN CORPUSCULAR HGB CONC 29.9 g/dl (32.0-36.5); MEAN CORPUSCULAR VOLUME 79.4 fl (80.0-96.0); MONO # 0.4 10^3/uL (0.0-0.8); MONO % 7.1 % (0.0-5.0); NEUTROPHILS # 4.4 10^3/uL (1.8-7.7); NEUTROPHILS % 72.7 % (36.0-66.0); PLATELET COUNT, AUTOMATED 263 10^3/uL (150-450); RED BLOOD COUNT 4.96 10^6/uL (4.00-5.40); WHITE BLOOD COUNT 6.1 10^3/uL (4.0-10.0)
[2018-01-21 09:06] LABS: ALBUMIN 2.3 GM/DL (3.2-5.2); BILIRUBIN,TOTAL 0.5 MG/DL (0.2-1.0); CALCIUM LEVEL 7.6 MG/DL (8.5-10.1); CREATININE FOR GFR 2.9 MG/DL (0.55-1.30); GLOMERULAR FILTRATION RATE 17.9 (>51); POTASSIUM SERUM 4.9 MEQ/L (3.5-5.1); TOTAL PROTEIN 6.4 GM/DL (6.4-8.2); VANCOMYCIN RANDOM 24.2 UG/ML
[2018-01-21] MEDS ORDERED: LEVEMIR (INSULIN DETEMIR) 1 UNITS/0.01ML SC ONE (09:30)
--- NOTE | 2018-01-21 10:25 | IPNPDOC ---
Text Note Date of Service The patient was seen on 01/21/18. NOTE Subjective: Patient seen and examined at bedside. No acute overnight events reported. Today she complains of constipation. Objective: Vitals: (see below) General: No acute distress, sitting at edge of bed eating breakfast HEENT: NC/AT, MMM Neck: right IJ in place Cardiac: RRR, No murmurs Pulm: Diminished breath sounds at the bases b/l. No wheezing. + rhonchi Abd: soft, NT, +BS Ext: Left BKA. Right transmetatarsal amputation, with dressings in place. RUE fistula. Assessment/Plan: 57 yo female for general malaise, fever, nausea and diarrhea with extensive medical history including CAD/PCI, PVD/BKA, ESRD/HD, DM and non-compliance. # C. difficile diarrhea - PO vancomycin day #5. No abdominal pain. Diarrhea resolved. # Right foot infection s/p TMA - started on vancomycin per prior cultures of enterococcus faecalis and MSSA - f/u Dr. Stern - vascular surgery - plan for further surgical intervention? # Hypertension - controlled continue current meds #hypomagnesemia - continue to follow and replete as needed # ESRD/HD - dialyzed through right IJ waiting for fistula to mature - noncompliant with dialysis and has been missing her sessions outpatient. # Diabetes mellitus - poorly controlled - continue sliding scale insulin with basal insulin adjusted - has been increase to home dosage 30 units qam; consistent carb diet #DLP - lipitor # CAD status post PCI continue aspirin, Plavix, beta adeel, statin. Cardiac enzymes negative. #ischemic cardiomyopathy - LVEF 15% #PVD - s/p left BKA, right TMA - multiple stents placed - vascular surgery in [place] - follow as per vascular - assistance appreciated # History of COPD stable # non-compliance - further complicating factor to medical care DVT prophy: mechanical Prognosis guarded. VS,Fishbone, I+O VS, Fishbone, I+O Laboratory Tests 01/21/18 08:25 Red Blood Count 4.96, Mean Corpuscular Volume 79.4 L, Mean Corpuscular Hemoglobin 23.8 L, Mean Corpuscular Hemoglobin Concent 29.9 L, Red Cell Distribution Width 24.0 H, Neutrophils (%) (Auto) 72.7 H, Lymphocytes (%) (Auto) 17.4 L, Monocytes (%) (Auto) 7.1 H, Eosinophils (%) (Auto) 1.3, Basophils (%) (Auto) 0.8, Neutrophils # (Auto) 4.4, Lymphocytes # (Auto) 1.1 L, Monocytes # (Auto) 0.4, Eosinophils # (Auto) 0.1, Basophils # (Auto) 0.1, Calcium Level 7.6 L, Aspartate Amino Transf (AST/SGOT) 23, Alanine Aminotransferase (ALT/SGPT) 17, Alkaline Phosphatase 245 H, Total Bilirubin 0.5, Total Protein 6.4, Albumin 2.3 L Vital Signs Date Time Temp Pulse Resp B/P (MAP) Pulse Ox O2 Delivery O2 Flow Rate FiO2 01/21/18 08:16 82 175/67 01/21/18 07:00 18 01/21/18 06:00 99.1 92 Room Air I&O- Last 24 Hours up to 6 AM 01/21/18 06:00 Intake Total 1930 ml Output Total 2700 ml Balance -770 ml JAVIER ORDONEZ MD Jan 21, 2018 10:25
[2018-01-21 10:30] LABS: MAGNESIUM LEVEL 1.8 MG/DL (1.8-2.4)
[2018-01-21 14:00] VITALS: BP 160/56
[2018-01-21] MEDS: ATORVASTATIN 20 MG TAB PO SCH (20:35)
[2018-01-21] MEDS: GLUCOSE 4 GM CHEW TABLET PO PRN (20:37)
[2018-01-21 22:00] VITALS: BP 152/72
[2018-01-22] MEDS: VANCOMYCIN ORAL SOL 250MG/5ML ORAL SYRINGE PO SCH ×4 (00:38→18:00)
[2018-01-22] MEDS: IPRATROPIUM 0.5MG/ALBUTEROL 2.5MG INH SOL UD 3ML (DUONEB)(J7620) NEB SCH ×8 (00:51→19:40)
[2018-01-22 06:00] VITALS: BP 146/62
[2018-01-22] MEDS: CANDESARTAN 4MG TABLET PO SCH (08:29)
[2018-01-22] MEDS: guaiFENesin ER 600 MG TAB PO SCH ×2 (08:31→22:35)
[2018-01-22] MEDS: METOPROLOL TART 50 MG TAB PO SCH ×2 (08:31→22:36)
[2018-01-22] MEDS: ANEXSIA, NORCO 7.5MG/325MG TABLET(HYDROCODONE/APAP) PO PRN ×2 (08:31→22:35)
[2018-01-22] MEDS: CLOPIDOGREL 75 MG TAB PO SCH (08:31)
[2018-01-22] MEDS: ASPIRIN 81 MG ENTERIC TAB PO SCH (08:31)
[2018-01-22] MEDS: SERTRALINE 100 MG TAB PO SCH (08:32)
[2018-01-22] MEDS: FAMOTIDINE 20 MG TAB PO SCH (08:32)
[2018-01-22] MEDS: ALPRAZolam 0.5 MG TAB PO SCH ×3 (08:32→22:34)
[2018-01-22] MEDS: HumaLOG INSULIN (NovoLOG) PER UNIT SC SCH ×4 (08:33→22:20)
[2018-01-22] MEDS: LEVEMIR (INSULIN DETEMIR) 1 UNITS/0.01ML SC SCH (08:34)
[2018-01-22] MEDS: DIAPER RELIEF PASTE (DESITIN) 60GM TOP SCH (08:35)
[2018-01-22] MEDS: NYSTATIN 100,000 UNITS/GM TOPICAL PWD 15 GM TOP SCH ×2 (09:00→22:37)
[2018-01-22] MEDS: SANTYL OINT 30GM TOP SCH (09:00)
[2018-01-22] MEDS: FLUTICASONE PROP 0.05% NASAL SPRAY 16 GM (FLONASE) SCH ×2 (09:00→22:36)
[2018-01-22 12:48] LABS: ALBUMIN 2.1 GM/DL (3.2-5.2); BILIRUBIN,TOTAL 0.4 MG/DL (0.2-1.0); CALCIUM LEVEL 7.2 MG/DL (8.5-10.1); CREATININE FOR GFR 3.58 MG/DL (0.55-1.30); MAGNESIUM LEVEL 1.7 MG/DL (1.8-2.4); POTASSIUM SERUM 5.2 MEQ/L (3.5-5.1); TOTAL PROTEIN 6.1 GM/DL (6.4-8.2)
--- NOTE | 2018-01-22 13:24 | IPN ---
DATE: 01/21/2018 SUBJECTIVE: Patient was seen and examined at the bedside today morning. Patient was complaining of headache. She was dialyzed yesterday. She tolerated the hemodialysis procedure well. Her glucose levels are high, in the 400s. I increased her dose of Levemir today. She had six bowel movements yesterday, but she reports that her diarrhea is improving now. OBJECTIVE: VITAL SIGNS: Temperature is 99.1 degrees Fahrenheit, blood pressure was 175/67, pulse was 82, respiratory rate of 18, saturating 92% on room air. INTAKE AND OUTPUT: Urine output is not recorded. She had incontinent voids. Ultrafiltration with hemodialysis was 2.5 liters. She is refusing the bed weight. PHYSICAL EXAMINATION: GENERAL: Patient is awake, alert and oriented times three, laying in bed, agitated and complaining of headache. HEAD/NECK: Extraocular muscles intact. Pupils equally round and reactive to light. Mucous membranes are moist. Neck is supple. There is no jugular venous distention (JVD). She has a right IJ tunneled hemodialysis catheter. CARDIOVASCULAR: S1, S2, regular rate. Trace edema of the bilateral lower extremities. RESPIRATORY: Chest is clear to auscultation bilaterally. Bilateral equal air entry. No rales or rhonchi. ABDOMEN: Soft. Positive bowel sounds. Nontender. No organomegaly. MUSCULOSKELETAL: She has a dressing on the right foot, transmetatarsal amputation (TMA) site and she has a left below knee amputation. CENTRAL NERVOUS SYSTEM: No focal deficit. Power is 5/5 in bilateral upper extremities. AV ACCESS: She has a right upper arm AV fistula with a thrill and bruit, and right IJ tunneled hemodialysis catheter. LAB REVIEW: CBC showed a WBC of 6.1, hemoglobin 11.8, platelets are 263. BMP showed sodium 134, potassium 4.9, chloride 102, bicarbonate 22, BUN 30, creatinine is 2.9. CURRENT INPATIENT MEDICATIONS: Patient's medications were all reviewed by me. Her IV vancomycin is on hold. Her insulin Levemir has been changed to 30 units subcu daily. She continues to be on oral vancomycin. ASSESSMENT AND PLAN: 1. End-stage renal disease with hemodialysis. Patient was dialyzed yesterday according to her regular schedule, 2.5 liters of fluid was removed. Next hemodialysis will be on Tuesday, January 23, 2018. 2. C. difficile colitis. Patient is currently on oral vancomycin. Diarrhea is improving. 3. Chronic combined systolic and diastolic congestive heart failure. Volume status is being optimized with dialysis. Continue metoprolol 50 mg twice a day and candesartan 4 mg daily. 4. Peripheral vascular disease status post right transmetatarsal amputation. Patient is on IV vancomycin for the infection. Vancomycin level was 24.2. Vancomycin is on hold. The rest of the management is as per vascular surgery.
[2018-01-22 13:26] LABS: BASO # 0.1 10^3/uL (0.0-0.2); BASO % 0.9 % (0.0-1.0); EOS # 0.1 10^3/uL (0.0-0.50); EOS % 1.8 % (0.0-3.0); HEMATOCRIT 37.2 % (36.0-47.0); HEMOGLOBIN 11.2 g/dl (12.0-15.5); LYMPH # 1.1 10^3/uL (1.5-4.5); MEAN CORPUSCULAR HGB CONC 30.1 g/dl (32.0-36.5); MEAN CORPUSCULAR VOLUME 79.8 fl (80.0-96.0); MONO # 0.5 10^3/uL (0.0-0.8); NEUTROPHILS # 4.9 10^3/uL (1.8-7.7); NEUTROPHILS % 73.6 % (36.0-66.0); PLATELET COUNT, AUTOMATED 232 10^3/uL (150-450); RED BLOOD COUNT 4.66 10^6/uL (4.00-5.40); WHITE BLOOD COUNT 6.7 10^3/uL (4.0-10.0)
[2018-01-22 14:00] VITALS: BP 129/70
[2018-01-22] MEDS: GLUCOSE 4 GM CHEW TABLET PO PRN ×3 (16:43→22:33)
[2018-01-22] MEDS ORDERED: MAG SULF 1GM/100ML (MAG RUN) 1 GM in APPROPRIATE DILUENT 1 EA IV ONE (17:30)
--- NOTE | 2018-01-22 17:34 | IPNPDOC ---
Text Note Date of Service The patient was seen on 01/22/18. NOTE Subjective: Patient is a 57-year-old female with a PMHx of CAD s/p stent, PVD s/p L BKA, IDDM2, COPD, HTN, ESRD on HD (TTS), who presented to the ER with diarrhea and fever of 103. Patient's found to have C. difficile colitis and was admitted to hospitalist service for further treatment and evaluation. Patient was seen and examined at the bedside. Patient denies any chest pain, shortness of breath or palpitations. Denies any nausea or vomiting. Denies abdominal pain. Notes that her diarrhea is doing better. She notes that the diarrhea still present but is becoming more formed. Objective: General: Lying in bed, No acute distress, Speaking in full sentences, AAOx3 HEENT: NC, AT Lungs: Fair air entry b/l, mild wheezing, no rhonchi / rales Heart: +S1S2 Abdomen: Soft, NT, ND Extremities: No signs of edema, No calf tenderness, L BKA, R transmetatarsal amputation Assessment and plan: Diarrhea - likely 2/2 C. diff colitis - Clinically patient is doing better stools becoming more formed - Physical without any abdominal tenderness, remains afebrile - c/w Vancomycin PO (Day #6) Right foot transmetatarsal amputation with ulceration - Prior cultures with a history of Enterococcus faecalis and MSSA - c/w Vancomycin dosed with HD - Follows with Dr. Stern; current plan of care is for further intervention once acute treatment of diarrhea is over - Dr. Stern on consultation; appreciate their input HTN - BP controlled - c/w Metoprolol Hypomagnesemia - will supplement Hyperkalemia - Will be going for dialysis tomorrow Normocytic anemia ESRD on HD (TTS) - Dialyzed through R IJ; fistula has not matured - Has history of noncompliance with dialysis and has missed several sessions in the past IDDM2 - c/w ISS DLP - c/w Atorvastatin CAD s/p PCI - c/w ASA, Plavix, Metoprolol, Atorvastatin, Chronic Systolic / Diastolic CHF - 2/2 Ischemic cardiomyopathy - No evidence of exacerbation at this time - LVEF 15% PVD - s/p left BKA, right TMA - Has had multiple stents placed by vascular surgery in [place] - Follows with Dr. Stern History of COPD - no evidence of exacerbation - c/w inhaled therapy as ordered Non-compliance - complicating medical care DVT prophylaxis - c/w SCDs - Will start Heparin VS,Fishbone, I+O VS, Fishbone, I+O Laboratory Tests 01/22/18 11:52 Calcium Level 7.2 L, Aspartate Amino Transf (AST/SGOT) 98 H, Alanine Aminotransferase (ALT/SGPT) 51, Alkaline Phosphatase 337 H, Total Bilirubin 0.4, Total Protein 6.1 L, Albumin 2.1 L 01/22/18 13:11 Red Blood Count 4.66, Mean Corpuscular Volume 79.8 L, Mean Corpuscular Hemoglobin 24.0 L, Mean Corpuscular Hemoglobin Concent 30.1 L, Red Cell Distribution Width 23.7 H, Neutrophils (%) (Auto) 73.6 H, Lymphocytes (%) (Auto) 16.0 L, Monocytes (%) (Auto) 7.0 H, Eosinophils (%) (Auto) 1.8, Basophils (%) (Auto) 0.9, Neutrophils # (Auto) 4.9, Lymphocytes # (Auto) 1.1 L, Monocytes # (Auto) 0.5, Eosinophils # (Auto) 0.1, Basophils # (Auto) 0.1 Vital Signs Date Time Temp Pulse Resp B/P (MAP) Pulse Ox O2 Delivery O2 Flow Rate FiO2 01/22/18 14:00 97.8 72 20 129/70 (89) 98 Room Air I&O- Last 24 Hours up to 6 AM 01/22/18 06:00 Intake Total 1670 ml Output Total 0 ml Balance 1670 ml JUANCHO MOSLEY MD Jan 22, 2018 17:34
--- NOTE | 2018-01-22 18:13 | IPN ---
DATE: 01/22/2018 SUBJECTIVE: The patient was seen and examined at the bedside today morning. The patient reports that she is having cough and chest pains because of persistent coughing. She was getting albuterol nebulizations but that is not helping her. She denies any fevers or chills at this point and she feels like she might need dialysis. OBJECTIVE: VITAL SIGNS: Temperature is 98.6 degrees Fahrenheit, blood pressure 146/62, pulse is 72, respiratory rate of 19, saturating 95% on room air. INTAKE AND OUTPUT: There is no urine output recorded. She had two voids overnight and she is refusing the bed scale weight. PHYSICAL EXAMINATION: GENERAL: Patient is awake, alert and oriented times three, mildly agitated, laying in bed, in no apparent distress. HEAD AND NECK: Extraocular muscles intact. Pupils are equally round and reactive to light. Mucous membranes are moist. Neck is supple. There is no jugular venous distention (JVD). She has a right internal jugular (IJ) tunneled hemodialysis catheter. CARDIOVASCULAR: S1, S2, regular rate. Trace edema in the lower extremities. Right upper arm arteriovenous (AV) fistula with positive thrill and bruit. RESPIRATORY: Decreased breath sounds at the bases. She has active rhonchi and harsh vesicular breathing in the left lower lobe. ABDOMEN: Soft. Positive bowel sounds. Nontender. No organomegaly. MUSCULOSKELETAL: She has a dressing on the right foot transmetatarsal amputation site and left below-knee amputation. 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 Power is 5/5 in bilateral upper extremities. LABORATORY REVIEW: CBC result is pending. BMP result is also pending. CURRENT INPATIENT MEDICATIONS: The patient's medications were all reviewed by me. She continues to be on IV vancomycin with hemodialysis. She is also on oral vancomycin 125 mg every six hours. I have started the patient on DuoNebs every six hours. ASSESSMENT AND PLAN: 1. End-stage renal disease, on hemodialysis. Her regular dialysis days are Monday, , Monday. She was dialyzed over the weekend. No urgent need of hemodialysis today. She will dialyzed tomorrow as per her regular schedule. 2. Cough and shortness of breath. I have started the patient on DuoNeb nebulizations. I have ordered a portable chest x-ray to rule out pneumonia. I am hesitant to start the patient on gram negative coverage because she has Clostridium (C) difficile colitis as well. 3. C. difficile colitis. Diarrhea is improving. Continue oral vancomycin as per primary team. 4. Chronic combined systolic and diastolic congestive heart failure. The patient has a left ventricular ejection fraction of around 15%. Volume status is optimized with dialysis. Continue metoprolol and candesartan. 5. Peripheral vascular disease, status post right transmetatarsal amputation. Site is infected. She is currently getting IV vancomycin with dialysis. Levels were supratherapeutic. Vancomycin is on hold.
[2018-01-22 22:00] VITALS: BP 132/68
[2018-01-22] MEDS: HEPARIN SOD (PORCINE) 5000 UNITS/ML VIAL SQ SCH (22:34)
[2018-01-22] MEDS: ATORVASTATIN 20 MG TAB PO SCH (22:34)
[2018-01-23] MEDS: VANCOMYCIN ORAL SOL 250MG/5ML ORAL SYRINGE PO SCH ×4 (00:10→17:45)
[2018-01-23 06:00] VITALS: BP 160/72
[2018-01-23] MEDS: HEPARIN SOD (PORCINE) 5000 UNITS/ML VIAL SQ SCH ×3 (06:16→21:51)
[2018-01-23] MEDS: CANDESARTAN 4MG TABLET PO SCH (06:17)
[2018-01-23] MEDS: FAMOTIDINE 20 MG TAB PO SCH (06:17)
[2018-01-23] MEDS: SERTRALINE 100 MG TAB PO SCH (06:18)
[2018-01-23] MEDS: CEPACOL LOZENGE PO PRN (06:18)
[2018-01-23] MEDS: guaiFENesin ER 600 MG TAB PO SCH ×2 (06:18→21:50)
[2018-01-23] MEDS: CLOPIDOGREL 75 MG TAB PO SCH (06:18)
[2018-01-23] MEDS: ASPIRIN 81 MG ENTERIC TAB PO SCH (06:18)
[2018-01-23] MEDS: METOPROLOL TART 50 MG TAB PO SCH ×2 (06:19→21:51)
[2018-01-23] MEDS: ANEXSIA, NORCO 7.5MG/325MG TABLET(HYDROCODONE/APAP) PO PRN ×2 (06:25→15:01)
[2018-01-23 06:39] LABS: BASO # 0.1 10^3/uL (0.0-0.2); BASO % 1.2 % (0.0-1.0); EOS # 0.2 10^3/uL (0.0-0.50); EOS % 2.8 % (0.0-3.0); HEMATOCRIT 40.1 % (36.0-47.0); HEMOGLOBIN 11.8 g/dl (12.0-15.5); LYMPH # 1.2 10^3/uL (1.5-4.5); LYMPH % 21.4 % (24.0-44.0); MEAN CORPUSCULAR HGB CONC 29.4 g/dl (32.0-36.5); MEAN CORPUSCULAR VOLUME 81.7 fl (80.0-96.0); MONO # 0.4 10^3/uL (0.0-0.8); NEUTROPHILS # 3.8 10^3/uL (1.8-7.7); NEUTROPHILS % 66.7 % (36.0-66.0); PLATELET COUNT, AUTOMATED 264 10^3/uL (150-450); RED BLOOD COUNT 4.91 10^6/uL (4.00-5.40); WHITE BLOOD COUNT 5.8 10^3/uL (4.0-10.0)
[2018-01-23 07:08] LABS: ALBUMIN 2.2 GM/DL (3.2-5.2); BILIRUBIN,TOTAL 0.5 MG/DL (0.2-1.0); CALCIUM LEVEL 7.6 MG/DL (8.5-10.1); CREATININE FOR GFR 3.88 MG/DL (0.55-1.30); GLOMERULAR FILTRATION RATE 12.8 (>51); POTASSIUM SERUM 5.7 MEQ/L (3.5-5.1); TOTAL PROTEIN 6.4 GM/DL (6.4-8.2)
--- NOTE | 2018-01-23 07:43 | REP ---
Portable chest x-ray: Single view. History: Shortness of breath. Comparison chest x-ray: January 16, 2018. Findings: A dual lumen tunnel catheter is again noted in place on the right. Mild cardiac enlargement is observed as before. There is hazy opacity in the bases bilaterally consistent with small amounts of pleural fluid. Discoid atelectasis is suspected in the left base. There is some linear fibrosis in the left perihilar region. No acute infiltrate. Electronically Signed by Chandana Childers MD 01/23/2018 09:43 A
[2018-01-23] MEDS: IPRATROPIUM 0.5MG/ALBUTEROL 2.5MG INH SOL UD 3ML (DUONEB)(J7620) NEB SCH ×4 (08:00→21:51)
[2018-01-23] MEDS: HumaLOG INSULIN (NovoLOG) PER UNIT SC SCH ×4 (08:11→21:49)
[2018-01-23] MEDS: NYSTATIN 100,000 UNITS/GM TOPICAL PWD 15 GM TOP SCH ×2 (08:12→21:51)
[2018-01-23] MEDS: DIAPER RELIEF PASTE (DESITIN) 60GM TOP SCH (08:12)
[2018-01-23] MEDS: LEVEMIR (INSULIN DETEMIR) 1 UNITS/0.01ML SC SCH (08:12)
[2018-01-23] MEDS: FLUTICASONE PROP 0.05% NASAL SPRAY 16 GM (FLONASE) SCH ×2 (08:13→21:52)
[2018-01-23] MEDS: SANTYL OINT 30GM TOP SCH (08:13)
[2018-01-23] MEDS: ALPRAZolam 0.5 MG TAB PO SCH ×3 (08:23→21:50)
[2018-01-23] MEDS ORDERED: HEPARIN 1,000 UNITS/ML 10ML VIAL (FOR RADIOLOGY& DIALYSIS ONLY) XX ONE (12:00)
[2018-01-23] MEDS ORDERED: HEPARIN 1,000 UNITS/ML 10ML VIAL (FOR RADIOLOGY& DIALYSIS ONLY) IV ONE (12:00)
[2018-01-23 14:00] VITALS: BP 144/62
--- NOTE | 2018-01-23 14:45 | PHACANCOPD ---
PHARMACY VANCOMYCIN DOSING Pt Demographics Demographics Patient Age:57 , Weight:74.900 , Gender: female Adjusted Body Weight Date: 01/17/18, Adjusted Body Weight: Kg Events Past 24 Hours Events Past 24 Hours: YES: Dialysis; NO: Diuretic Therapy, Change in CrCl, Fever, Elevation in WBC, Pending Diagnostics, Pending Procedures, Other Vancomycin Vancomycin indication: INFECTED FOOT WOUND Vancomycin Target Ranges: 15-20 mcg/ml Vancomycin Load Y/N: No Load Dose Date Time Vancomycin Load Dose: Date: Time: Vancomycin Dose Date: 01/17/18. Current Vancomycin Dose: [1GM AFTER HD] Intermittent Dosing?: No Labs Labs Item Value Date Time White Blood Count 6.7 10^3/uL 01/22/18 1311 White Blood Count 5.8 10^3/uL 01/23/18 0624 Creatinine 3.58 MG/DL H 01/22/18 1152 Creatinine 3.88 MG/DL H 01/23/18 0624 C-Reactive Protein, Quantitative 2.56 MG/DL H 01/18/18 0609 Random Vancomycin Level 16.1 UG/ML 01/23/18 0624 Vital Signs Label Value Date Time Patient Temperature 97.5 degrees F 01/23/18 0600 Temperature Source Oral 01/23/18 0600 Micro Microbiology 01/17/18 Stool Occult Blood (HUNG) - Final, Complete 01/17/18 Stool Occult Blood (HUNG) - Final, Complete 01/17/18 Stool Occult Blood (HUNG) - Final, Complete 01/16/18 Gastrointestinal Tract Panel (PCR) - Final, Complete Clostridium Difficile A/B Creatinine Clearance Date:01/17/18. Creatinine Clearance: . Assessment and Plan Maintaining Current Dose?: Yes Reason for dose change: No Dose Change Pharmacist Note Pharmacist Note 01/23: patient's trough is back in range today at 16.1 so we will resume her Vancomycin 1gm after HD today. She is receiving HD today. Her WBC is within normal limits and she is afebrile. She is waiting for consult from Dr. Stern to see what her next steps are for her wound care. WE will continue to monitor and make adjustments as necessary. 01/20: Patient's random came back at 32.8 today. Her vancomycin was put on hold due to the high random this morning. She is receiving dialysis today and we will reevaluate random in the morning. We will continue to monitor and make adjustments as necessary. Date: 01/17/18. Pharmacist note: Patient was started on Vancomycin today due to infected wound on her foot. Her previous wound cultures grew E.faecalis and MSSA. She is a dialysis patient with usual dialysis days of Monday, , and Monday. She has not received dialysis in over a week and therefore will receive dialysis today. They are unsure at this time what her dialysis schedule will be as they will be evaluating her day by day to see what her needs are. Currently she is set up with Vancomycin 1gm after HD and we will obtain a random level in the morning to make sure she is therapeutic range. We will continue to monitor and make adjustments as necessary. RAY SÁNCHEZ PHARMACY Jan 23, 2018 14:45
[2018-01-23] MEDS: VANCOMYCIN HCL 1,000 MG, VIAL MATE ADAPTER 1 EACH in D5W 250 ML IV SCH (14:59)
[2018-01-23] MEDS: **VANCO AFTER HD** MISC XX SCH (15:01)
--- NOTE | 2018-01-23 15:44 | IPN ---
DATE: 01/23/2018 SUBJECTIVE: The patient is seen and examined in the room today. The patient still complains about frequent bowel movements but stools are more formed. OBJECTIVE: VITAL SIGNS: Temperature is 97.5, pulse is 72, respiratory rate 18, blood pressure 160/72, pulse oximetry is 99% on room air. GENERAL: No sign of acute distress, alert and oriented times three. HEENT: Normocephalic, atraumatic. Extraocular motor grossly intact. CARDIOVASCULAR: Positive S1, S2, regular rate. LUNGS: Clear to auscultation bilaterally. ABDOMEN: Soft, nontender, nondistended. Bowel sounds present. EXTREMITIES: Left below-knee amputation. Right lower extremity wrapped with a dressing. There is some discomfort to palpation. LABORATORY DATA: WBC is 5.8, hemoglobin 11.8, hematocrit 40.1, platelet count is 264. Sodium is 134, potassium 5.7, chloride 105, carbon dioxide 18, BUN 54, creatinine 3.8, GFR is 12.8, fasting glucose 309, calcium 7.6, magnesium 2, total bilirubin is 0.5, AST is 196, ALT is 100, alkaline phosphatase 445, total protein 6.4, albumin 2.2. ASSESSMENT AND PLAN: 1. Clostridium (C) difficile colitis. The patient is on oral vancomycin and today is day number seven. The patient's stool has become more formed. 2. Right foot metatarsal amputation with ulcerations. Wound culture from 10/29/2017 grew Enterococcus faecalis, Staphylococcus aureus, Corynebacteria. Currently, the patient is on IV vancomycin with dialysis. Dr. Stern is consulted. The patient will have a wound debridement on 01/24/2018. 3. End-stage renal disease, on hemodialysis. The patient will have hemodialysis today on 01/23/2018. We appreciate nephrology's assistance. 4. Hypertension. The patient is on metoprolol. 5. Hypomagnesemia. Continue to monitor. Supplement as needed. 6. Hyperkalemia. The patient will have hemodialysis on 01/23/2018. Continue to monitor. 7. Insulin-dependent diabetes, on Levemir. On sliding scale. On consistent-carbohydrate diet. 8. Dyslipidemia, on statin. 9. 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 10. Systolic and diastolic dysfunction, secondary to ischemic cardiomyopathy. Ejection fraction (EF) of 15%. No sign of fluid overload at this moment. 11. Peripheral vascular disease, status post left below-knee amputation (BKA), status post multiple stent placement previously. 12. History of chronic obstructive pulmonary disease (COPD). No exacerbation. 13. Medical noncompliance. 14. Deep vein thrombosis (DVT) prophylaxis, on heparin.
--- NOTE | 2018-01-23 21:13 | IPN ---
DATE: 01/23/2018 The patient was seen and examined at the bedside today morning during hemodialysis procedure. He is tolerating hemodialysis procedure well. She reports that her cough is getting better. Her diarrhea is also improving. She had five bowel movements yesterday. OBJECTIVE: VITAL SIGNS: Temperature is 97.5 degrees Fahrenheit, blood pressure 160/72, pulse is 72, respiratory rate of 18, saturating 99% on room air. Intake and output: Urine output recorded as 125 mL. Weight on the bed scale is not available. PHYSICAL EXAMINATION: GENERAL: The patient is awake, alert and oriented times three. Sitting up in the bed, getting hemodialysis done. HEAD/NECK: Patient has periorbital puffiness. Head is normocephalic, atraumatic. Neck is supple. She has a right IJ tunneled hemodialysis catheter. CARDIOVASCULAR: S1, S2, regular rate. Trace edema of the lower extremities. Right arm AV fistula is being used for dialysis. RESPIRATORY: Decreased breath sounds at the bases. Mild expiratory rhonchi in the left base. ABDOMEN: Soft. Positive bowel sounds. Nontender. No organomegaly. MUSCULOSKELETAL: Dressing on the right foot transmetatarsal amputation site. There is a left below knee amputation. CENTRAL NERVOUS SYSTEM: No focal deficit. Power is 5/5 in all extremities. LABORATORY RESULTS: CBC showed a WBC of 5.8, hemoglobin 11.8, platelets are 264. BMP showed sodium 134, potassium 5.7, chloride 105, bicarbonate 18, BUN 54, creatinine is 3.8. Calcium 7.6, albumin 2.2. Random vancomycin level is 16.1. IMAGING: A chest x-ray was done yesterday, which showed hazy opacity in the bases bilaterally consistent with a small amount of effusion. Possible discoid atelectasis in the left base. CURRENT INPATIENT MEDICATIONS: Patient's medications were all reviewed by me. She continues to be on IV vancomycin with hemodialysis. She is also on nebulization. No other change in the medications today as compared with yesterday. ASSESSMENT AND PLAN: 1. End-stage renal disease on hemodialysis. Patient is being dialyzed today according to her regular Monday, , Monday schedule. She has significant fluid on board. Ultrafiltration goal will be around 4 liters as tolerated by her blood pressure. 2. Cough and shortness of breath. Continue nebulizations. Ultrafiltration would also help improve her shortness of breath. I would not give her any more IV antibiotics to this patient. She is actively being treated for C. Difficile colitis. 3. C. difficile colitis. Diarrhea is improving. Continue oral vancomycin. 4. Chronic combined systolic and diastolic congestive heart failure. Patient has left ventricular ejection fraction around 15%. 4 liter of fluid will be removed. Continue current dose of metoprolol and candesartan. 5. Infected right foot transmetatarsal amputation site. Continue IV vancomycin. Patient is pending evaluation by vascular surgery for possible debridement.
[2018-01-23] MEDS: ATORVASTATIN 20 MG TAB PO SCH (21:50)
[2018-01-23 22:00] VITALS: BP 125/75
[2018-01-24] MEDS: VANCOMYCIN ORAL SOL 250MG/5ML ORAL SYRINGE PO SCH ×4 (00:18→17:14)
[2018-01-24 04:41] VITALS: BP 160/80
[2018-01-24] MEDS: HEPARIN SOD (PORCINE) 5000 UNITS/ML VIAL SQ SCH ×3 (05:53→22:42)
[2018-01-24 06:00] VITALS: BP 128/60
[2018-01-24 06:19] LABS: BASO # 0.1 10^3/uL (0.0-0.2); BASO % 1.2 % (0.0-1.0); EOS # 0.2 10^3/uL (0.0-0.50); EOS % 3.4 % (0.0-3.0); HEMATOCRIT 39.8 % (36.0-47.0); HEMOGLOBIN 11.6 g/dl (12.0-15.5); LYMPH % 18.1 % (24.0-44.0); MEAN CORPUSCULAR HEMOGLOBIN 24.2 pg (27.0-33.0); MEAN CORPUSCULAR HGB CONC 29.1 g/dl (32.0-36.5); MEAN CORPUSCULAR VOLUME 83.1 fl (80.0-96.0); MONO # 0.4 10^3/uL (0.0-0.8); MONO % 7.6 % (0.0-5.0); NEUTROPHILS # 3.9 10^3/uL (1.8-7.7); NEUTROPHILS % 69.2 % (36.0-66.0); PLATELET COUNT, AUTOMATED 202 10^3/uL (150-450); RED BLOOD COUNT 4.79 10^6/uL (4.00-5.40); WHITE BLOOD COUNT 5.7 10^3/uL (4.0-10.0)
[2018-01-24 06:49] LABS: ALBUMIN 2.1 GM/DL (3.2-5.2); BILIRUBIN,TOTAL 0.4 MG/DL (0.2-1.0); CALCIUM LEVEL 7.4 MG/DL (8.5-10.1); CREATININE FOR GFR 2.96 MG/DL (0.55-1.30); GLOMERULAR FILTRATION RATE 17.5 (>51); POTASSIUM SERUM 5.4 MEQ/L (3.5-5.1); TOTAL PROTEIN 6.5 GM/DL (6.4-8.2)
[2018-01-24] MEDS: HumaLOG INSULIN (NovoLOG) PER UNIT SC SCH ×4 (07:30→22:47)
[2018-01-24] MEDS: IPRATROPIUM 0.5MG/ALBUTEROL 2.5MG INH SOL UD 3ML (DUONEB)(J7620) NEB SCH ×4 (07:54→20:00)
[2018-01-24] MEDS: CANDESARTAN 4MG TABLET PO SCH (09:00)
[2018-01-24] MEDS: NYSTATIN 100,000 UNITS/GM TOPICAL PWD 15 GM TOP SCH ×2 (09:00→22:43)
[2018-01-24] MEDS: LEVEMIR (INSULIN DETEMIR) 1 UNITS/0.01ML SC SCH (09:00)
[2018-01-24] MEDS: ASPIRIN 81 MG ENTERIC TAB PO SCH (09:11)
[2018-01-24] MEDS: SERTRALINE 100 MG TAB PO SCH (09:11)
[2018-01-24] MEDS: CLOPIDOGREL 75 MG TAB PO SCH (09:12)
[2018-01-24] MEDS: FAMOTIDINE 20 MG TAB PO SCH (09:12)
[2018-01-24] MEDS: ALPRAZolam 0.5 MG TAB PO SCH ×3 (09:12→22:41)
[2018-01-24] MEDS: guaiFENesin ER 600 MG TAB PO SCH ×2 (09:12→22:41)
[2018-01-24] MEDS: METOPROLOL TART 50 MG TAB PO SCH ×2 (09:12→22:45)
[2018-01-24] MEDS: DIAPER RELIEF PASTE (DESITIN) 60GM TOP SCH (09:13)
[2018-01-24] MEDS: SANTYL OINT 30GM TOP SCH (09:13)
[2018-01-24] MEDS: FLUTICASONE PROP 0.05% NASAL SPRAY 16 GM (FLONASE) SCH ×2 (09:14→22:44)
--- NOTE | 2018-01-24 09:49 | IPNPDOC ---
Subjective Date Seen The patient was seen on 01/24/18. Subjective Chief Complaint/HPI Patient seen and examined at the bedside. She is reporting that she has been having cough, runny nose, and dyspnea overnight. CT of the chest and chest x-ray from this admission notable for some right sided pleural effusion. However, upon checking the patient's pulse oximeter she is noted to be 98% on room air. Respiratory panel pending for possible viral URI. We will continue to monitor. Objective Physical Examination General Exam: Positive: Alert, Cooperative, No Acute Distress ENT Exam: Positive: Atraumatic, Mucous membr. moist/pink Chest Exam: Positive: Diminished; Negative: Normal air movement Heart Exam: Positive: Rate Normal, Normal S1, Normal S2 Abdomen Exam: Positive: Normal bowel sounds, Soft; Negative: Tenderness Extremity Exam: Positive: Other (LLE BKA, Right foot noted to be wrapped in surgical dressing) Psych Exam: Positive: Oriented x 3 Assessment /Plan Plan/VTE VTE Prophylaxis Ordered?: Yes Plan Clostridium (C) difficile colitis Patient reports more formed stools, less in frequency Denies any abd pain, or N/V Cont oral vancomycin Right foot metatarsal amputation with ulcerations. Wound culture from 10/29/2017 grew Enterococcus faecalis, Staphylococcus aureus, Corynebacteria. Cont on IV vancomycin with dialysis. Dr. Stern on board for wound debridement today End-stage renal disease, on hemodialysis HD as per Nephro Hypertension Cont metoprolol. Insulin-dependent diabetes Cont regimen as ordered Dyslipidemia Cont statin. Coronary artery disease Cont on aspirin, Lipitor, Plavix. Hx of Systolic and diastolic dysfunction CHF Ejection fraction (EF) of 15%. No sign of fluid overload at this moment. Peripheral vascular disease, status post left below-knee amputation (BKA), History of chronic obstructive pulmonary disease (COPD), stable Medical noncompliance. Complicating medical care Anxiety/Depression Sertraline, Xanax as ordered Deep vein thrombosis (DVT) prophylaxis Heparin SC VS, I&O, 24H, Fishbone Vital Signs/I&O Vital Signs Date Time Temp Pulse Resp B/P (MAP) Pulse Ox O2 Delivery O2 Flow Rate FiO2 01/24/18 09:12 74 130/70 01/24/18 06:00 97.7 21 93 Room Air I&O- Last 24 Hours up to 6 AM 01/24/18 06:00 Intake Total 1500 ml Output Total 4000 ml Balance -2500 ml Laboratory Data 24H LABS Laboratory Tests 2 01/23/18 16:50: Bedside Glucose (Misc Panel) 136H 01/23/18 21:46: Bedside Glucose (Misc Panel) 187H 01/24/18 06:02: Immature Granulocyte % (Auto) 0.5, White Blood Count 5.7, Red Blood Count 4.79, Hemoglobin 11.6L, Hematocrit 39.8, Mean Corpuscular Volume 83.1, Mean Corpuscular Hemoglobin 24.2L, Mean Corpuscular Hemoglobin Concent 29.1L, Red Cell Distribution Width 24.0H, Platelet Count 202, Neutrophils (%) (Auto) 69.2H, Lymphocytes (%) (Auto) 18.1L, Monocytes (%) (Auto) 7.6H, Eosinophils (%) (Auto) 3.4H, Basophils (%) (Auto) 1.2H, Neutrophils # (Auto) 3.9, Lymphocytes # (Auto) 1.0L, Monocytes # (Auto) 0.4, Eosinophils # (Auto) 0.2, Basophils # (Auto) 0.1, Nucleated Red Blood Cells % (auto) 0.0, Anion Gap 9, Glomerular Filtration Rate 17.5L, Blood Urea Nitrogen 36H, Creatinine 2.96H, Sodium Level 135L, Potassium Level 5.4H, Chloride Level 103, Carbon Dioxide Level 23, Calcium Level 7.4L, Aspartate Amino Transf (AST/SGOT) 187H, Alanine Aminotransferase (ALT/SGPT) 114H, Alkaline Phosphatase 483H, Total Bilirubin 0.4, Total Protein 6.5, Albumin 2.1L, Magnesium Level 2.0, Albumin/Globulin Ratio 0.48L CBC/BMP Laboratory Tests 01/24/18 06:02 Red Blood Count 4.79, Mean Corpuscular Volume 83.1, Mean Corpuscular Hemoglobin 24.2 L, Mean Corpuscular Hemoglobin Concent 29.1 L, Red Cell Distribution Width 24.0 H, Neutrophils (%) (Auto) 69.2 H, Lymphocytes (%) (Auto) 18.1 L, Monocytes (%) (Auto) 7.6 H, Eosinophils (%) (Auto) 3.4 H, Basophils (%) (Auto) 1.2 H, Neutrophils # (Auto) 3.9, Lymphocytes # (Auto) 1.0 L, Monocytes # (Auto) 0.4, Eosinophils # (Auto) 0.2, Basophils # (Auto) 0.1, Calcium Level 7.4 L, Aspartate Amino Transf (AST/SGOT) 187 H, Alanine Aminotransferase (ALT/SGPT) 114 H, Alkaline Phosphatase 483 H, Total Bilirubin 0.4, Total Protein 6.5, Albumin 2.1 L Microbiology Microbiology 01/17/18 Stool Occult Blood (HUNG) - Final, Complete 01/17/18 Stool Occult Blood (HUNG) - Final, Complete 01/17/18 Stool Occult Blood (HUNG) - Final, Complete 01/16/18 Gastrointestinal Tract Panel (PCR) - Final, Complete Clostridium Difficile A/B 01/24/18 Respiratory Virus Panel (PCR) ([facility]G) - Final, Complete MAYI HOLT MD Jan 24, 2018 09:49
[2018-01-24] MEDS: methylPREDNISolone INJ 125 MG/2 ML VIAL (J2930) IV SCH ×2 (13:07→22:43)
[2018-01-24] MEDS: ANEXSIA, NORCO 7.5MG/325MG TABLET(HYDROCODONE/APAP) PO PRN (13:08)
[2018-01-24] MEDS: SENNA 8.6 MG TAB (SENOKOT) PO PRN (13:09)
[2018-01-24] MEDS: **VANCO AFTER HD** MISC XX SCH (15:10)
--- NOTE | 2018-01-24 15:51 | IPN ---
DATE: 01/24/2018 SUBJECTIVE: The patient was seen and examined at the bedside today morning. The patient is nothing by mouth for the right foot procedure today. She is upset that she has not eaten anything since last night. Otherwise, she reports that her diarrhea is getting better. The patient got up at night with cough and shortness of breath and she reports that she is persistently having the cough and her symptoms are not getting better with the nebulizations. She was dialyzed yesterday and four liters of fluid were removed. OBJECTIVE: VITAL SIGNS: Temperature is 97.7 degrees Fahrenheit, blood pressure 130/74, pulse is 74, respiratory rate of 21, saturating 93% on room air. INTAKE AND OUTPUT: Ultrafiltration with hemodialysis was four liters yesterday. She had some voids as well and she is refusing bed scale weight. PHYSICAL EXAMINATION: GENERAL: The patient is awake, alert and oriented times three, sitting up in the bed, mild respiratory distress and cough. HEAD AND NECK: Extraocular muscles intact. Pupils are equally round and reactive to light. Neck is supple. Right internal jugular (IJ) tunneled hemodialysis catheter. CARDIOVASCULAR: S1, S2, regular rate. Trace edema of the right lower extremity. RESPIRATORY: Decreased breath sounds at the bases with expiratory rhonchi bilaterally and active coughing. ABDOMEN: Soft. Positive bowel sounds. Nontender. No organomegaly. MUSCULOSKELETAL: Dressing on the right foot transmetatarsal amputation site and left below-knee amputation. CENTRAL NERVOUS SYSTEM (TRANSPORTATION SUPERINTENDENT): No focal deficit. Power is 5/5 in all extremities. LYMPH NODE: No significant cervical or axillary lymphadenopathy. LABORATORY REVIEW: CBC showed a WBC of 5.7, hemoglobin 11.6, platelets are 202. BMP showed sodium 135, potassium 5.4, chloride 103, bicarbonate 23, BUN 36, creatinine is 2.9, calcium 7.4, albumin 2.1. MICROBIOLOGY: Respiratory viral panel was checked today and it is negative. CURRENT INPATIENT MEDICATIONS: The patient's medications were all reviewed by me. She continues to be on nebulizations four times a day. I have started the patient on Solu-Medrol 60 mg IV every 12 hours. ASSESSMENT AND PLAN: 1. End-stage renal disease on hemodialysis. The patient was dialyzed yesterday according to her Monday, , Monday schedule. Four liters of fluid were removed. Next hemodialysis session will be tomorrow. 2. Acute chronic obstructive pulmonary disease (COPD) exacerbation. The patient is having active cough and rhonchi. Continue nebulizations. I have started the patient on Solu-Medrol 60 mg IV every 12 hours. 3. Clostridium (C) difficile colitis. Diarrhea is improving. Continue oral vancomycin. 4. Chronic combined systolic and diastolic congestive heart failure. The patient has a very low ejection fraction (EF) around 15%. Four liters of fluid were removed yesterday. The patient still has edema. Next dialysis will be tomorrow. If needed, the patient will get an extra session of ultrafiltration. I will not do ultrafiltration today because the patient is nothing by mouth for the procedure. Continue current dose of metoprolol and candesartan. 5. Infected right foot transmetatarsal amputation site. Continue IV vancomycin. The patient is nothing by mouth today for possible debridement of the wound in the operating room (OR).
[2018-01-24 22:00] VITALS: BP 154/62
[2018-01-24] MEDS: ATORVASTATIN 20 MG TAB PO SCH (22:41)
[2018-01-25] MEDS: VANCOMYCIN ORAL SOL 250MG/5ML ORAL SYRINGE PO SCH ×4 (00:35→18:16)
[2018-01-25 06:00] VITALS: BP 148/82
[2018-01-25] MEDS: ASPIRIN 81 MG ENTERIC TAB PO SCH (06:38)
[2018-01-25] MEDS: FAMOTIDINE 20 MG TAB PO SCH (06:38)
[2018-01-25] MEDS: ALPRAZolam 0.5 MG TAB PO SCH ×3 (06:38→20:45)
[2018-01-25] MEDS: CLOPIDOGREL 75 MG TAB PO SCH (06:38)
[2018-01-25] MEDS: CANDESARTAN 4MG TABLET PO SCH (06:38)
[2018-01-25] MEDS: guaiFENesin ER 600 MG TAB PO SCH ×2 (06:38→20:48)
[2018-01-25] MEDS: HEPARIN SOD (PORCINE) 5000 UNITS/ML VIAL SQ SCH ×3 (06:38→22:58)
[2018-01-25] MEDS: SERTRALINE 100 MG TAB PO SCH (06:38)
[2018-01-25] MEDS: METOPROLOL TART 50 MG TAB PO SCH ×2 (06:39→20:48)
[2018-01-25] MEDS: FLUTICASONE PROP 0.05% NASAL SPRAY 16 GM (FLONASE) SCH ×2 (06:39→20:49)
[2018-01-25] MEDS: NYSTATIN 100,000 UNITS/GM TOPICAL PWD 15 GM TOP SCH ×2 (07:48→20:50)
[2018-01-25] MEDS: DIAPER RELIEF PASTE (DESITIN) 60GM TOP SCH (07:48)
[2018-01-25] MEDS: SANTYL OINT 30GM TOP SCH (07:49)
[2018-01-25] MEDS: IPRATROPIUM 0.5MG/ALBUTEROL 2.5MG INH SOL UD 3ML (DUONEB)(J7620) NEB SCH ×4 (08:00→20:13)
[2018-01-25 08:25] LABS: BASO % 0.3 % (0.0-1.0); HEMOGLOBIN 12.1 g/dl (12.0-15.5); LYMPH # 0.3 10^3/uL (1.5-4.5); LYMPH % 5.1 % (24.0-44.0); MEAN CORPUSCULAR HEMOGLOBIN 24.1 pg (27.0-33.0); MEAN CORPUSCULAR HGB CONC 30.3 g/dl (32.0-36.5); MEAN CORPUSCULAR VOLUME 79.5 fl (80.0-96.0); MONO # 0.1 10^3/uL (0.0-0.8); MONO % 0.9 % (0.0-5.0); NEUTROPHILS # 6.2 10^3/uL (1.8-7.7); NEUTROPHILS % 93.2 % (36.0-66.0); PLATELET COUNT, AUTOMATED 323 10^3/uL (150-450); RED BLOOD COUNT 5.03 10^6/uL (4.00-5.40); WHITE BLOOD COUNT 6.6 10^3/uL (4.0-10.0)
[2018-01-25 09:08] LABS: ALBUMIN 2.3 GM/DL (3.2-5.2); BILIRUBIN,TOTAL 0.5 MG/DL (0.2-1.0); CREATININE FOR GFR 3.98 MG/DL (0.55-1.30); GLOMERULAR FILTRATION RATE 12.4 (>51); POTASSIUM SERUM 6.1 MEQ/L (3.5-5.1); TOTAL PROTEIN 6.8 GM/DL (6.4-8.2); VANCOMYCIN RANDOM 24.1 UG/ML
[2018-01-25] MEDS: LEVEMIR (INSULIN DETEMIR) 1 UNITS/0.01ML SC SCH (09:20)
[2018-01-25] MEDS: HumaLOG INSULIN (NovoLOG) PER UNIT SC SCH ×4 (09:21→20:49)
--- NOTE | 2018-01-25 10:13 | PHACANCOPD ---
PHARMACY VANCOMYCIN DOSING Pt Demographics Demographics Patient Age:57 , Weight:86.200 , Gender: female Adjusted Body Weight Date: 01/17/18, Adjusted Body Weight: Kg Vancomycin Vancomycin indication: INFECTED FOOT WOUND Vancomycin Target Ranges: 15-20 mcg/ml Vancomycin Load Y/N: No Load Dose Date Time Vancomycin Load Dose: Date: Time: Vancomycin Dose Date: 01/17/18. Current Vancomycin Dose: [1GM AFTER HD] Intermittent Dosing?: No Labs Labs Vital Signs Label Value Date Time Patient Temperature 98.3 degrees F 01/25/18 0600 Temperature Source Temporal 01/25/18 06 Patient Temperature 96.8 degrees F 01/24/18 2200 Temperature Source Temporal 01/24/18 220 Patient Temperature 97.7 degrees F 01/24/18 06 Temperature Source Temporal 01/24/18 06 Patient Temperature 98.0 degrees F 01/24/18 044 Temperature Source Oral 01/24/18 044 Item Value Date Time White Blood Count 6.6 10^3/uL 01/25/18 0806 White Blood Count 5.7 10^3/uL 01/24/18 0602 White Blood Count 5.8 10^3/uL 01/23/18 0624 Creatinine 3.98 MG/DL H 01/25/18 0806 Creatinine 2.96 MG/DL H 01/24/18 0602 Creatinine 3.88 MG/DL H 01/23/18 0624 Random Vancomycin Level 24.1 UG/ML 01/25/18 0806 Random Vancomycin Level 16.1 UG/ML 01/23/18 0624 Random Vancomycin Level 24.2 UG/ML 01/21/18 0825 Micro Microbiology 01/17/18 Stool Occult Blood (HUNG) - Final, Complete 01/17/18 Stool Occult Blood (HUNG) - Final, Complete 01/17/18 Stool Occult Blood (HUNG) - Final, Complete 01/16/18 Gastrointestinal Tract Panel (PCR) - Final, Complete Clostridium Difficile A/B 01/24/18 Respiratory Virus Panel (PCR) ([facility]UNG) - Final, Complete Creatinine Clearance Date:01/17/18. Creatinine Clearance: . Assessment and Plan Maintaining Current Dose?: No Reason for dose change: Trough too high Pharmacist Note Pharmacist Note 01/25/18: Random this AM resulted at 24.2mcg/ml. The patient is continuing to accumulate. I have lowered the dose to Vanco 750mg IV HD. We will continue to monitor and adjust dose as needed. 01/23: patient's trough is back in range today at 16.1 so we will resume her Vancomycin 1gm after HD today. She is receiving HD today. Her WBC is within normal limits and she is afebrile. She is waiting for consult from Dr. Stern to see what her next steps are for her wound care. WE will continue to monitor and make adjustments as necessary. 01/20: Patient's random came back at 32.8 today. Her vancomycin was put on hold due to the high random this morning. She is receiving dialysis today and we will reevaluate random in the morning. We will continue to monitor and make adjustments as necessary. Date: 01/17/18. Pharmacist note: Patient was started on Vancomycin today due to infected wound on her foot. Her previous wound cultures grew E.faecalis and MSSA. She is a dialysis patient with usual dialysis days of Monday, , and Monday. She has not received dialysis in over a week and therefore will receive dialysis today. They are unsure at this time what her dialysis schedule will be as they will be evaluating her day by day to see what her needs are. Currently she is set up with Vancomycin 1gm after HD and we will obtain a random level in the morning to make sure she is therapeutic range. We will continue to monitor and make adjustments as necessary. [facility]ELY [facility] Jan 25, 2018 10:13
--- NOTE | 2018-01-25 10:30 | IPNPDOC ---
Subjective Date Seen The patient was seen on 01/25/18. Subjective Chief Complaint/HPI C/o thirsty and mod dyspnea, Rt foot wound malodorous. High FBS 693 this am believed d/t systemic steroid Tx yesterday. Anxious for the scheduled debridement today. Objective Physical Examination General Exam: Positive: Alert, Cooperative, Moderate Distress Eye Exam: Positive: PERRLA, EOMI ENT Exam: Positive: Atraumatic, Other ENT (facial swelling) Neck Exam: Positive: Supple; Negative: JVD Chest Exam: Positive: Wheezing (R>L), Diminished (breath sounds aden); Negative: Clear to auscultation, Normal air movement, Rales, Rhonchi, Other Heart Exam: Positive: Rate Normal, Regular Rhythm, Normal S1, Normal S2; Negative: Gallops, Murmurs, Rubs, Other Abdomen Exam: Positive: Normal bowel sounds, Soft; Negative: Tenderness Extremity Exam: Positive: Other (LLE BKA, Right foot noted to be wrapped in surgical dressing); Negative: Clubbing, Cyanosis, Edema, Tenderness Neuro Exam: Positive: Normal Speech, Strength at 5/5 X4 ext, Cranial Nerves 3- 12 NL Psych Exam: Positive: Anxiety, Oriented x 3 Assessment /Plan Assessment 1. Infected nonhealing wound of right forefoot s/p TMA 2. Insulin dependent DM, FBS 693 today believed to be secondary to systemic steroid Tx 3. ESRD on HD TThSa, on dialysis today 4. Acute COPD exacerbation 5. Combined systolic and diastolic CHF 6. C. Diff colitis Plan/VTE VTE Prophylaxis Ordered?: Yes Plan 1. Continue current regimen per hospital med and nephrology 2. Debridement of infected nonhealing wound of right forefoot from S/p TMA Procedure was scheduled for this afternoon if patient's COPD exacerbation is well controlled. NPO VS, I&O, 24H, Fishbone Vital Signs/I&O Vital Signs Date Time Temp Pulse Resp B/P (MAP) Pulse Ox O2 Delivery O2 Flow Rate FiO2 01/25/18 06:39 73 140/82 01/25/18 06:00 98.3 17 92 Room Air I&O- Last 24 Hours up to 6 AM 01/25/18 06:00 Intake Total 1200 ml Output Total 0 ml Balance 1200 ml Laboratory Data 24H LABS Laboratory Tests 2 01/24/18 12:04: Bedside Glucose (Misc Panel) 221H 01/24/18 16:39: Bedside Glucose (Misc Panel) 276H 01/24/18 20:27: Bedside Glucose (Misc Panel) 360H 01/25/18 08:06: Immature Granulocyte % (Auto) 0.5, White Blood Count 6.6, Red Blood Count 5.03, Hemoglobin 12.1, Hematocrit 40.0, Mean Corpuscular Volume 79.5L, Mean Corpuscular Hemoglobin 24.1L, Mean Corpuscular Hemoglobin Concent 30.3L, Red Cell Distribution Width 24.3H, Platelet Count 323, Neutrophils (%) (Auto) 93.2H, Lymphocytes (%) (Auto) 5.1L, Monocytes (%) (Auto) 0.9, Eosinophils (%) (Auto) 0.0, Basophils (%) (Auto) 0.3, Neutrophils # (Auto) 6.2, Lymphocytes # (Auto) 0.3L, Monocytes # (Auto) 0.1, Eosinophils # (Auto) 0.0, Basophils # (Auto) 0.0, Nucleated Red Blood Cells % (auto) 0.0, Anion Gap 14, Glomerular Filtration Rate 12.4L, Blood Urea Nitrogen 54H, Creatinine 3.98H, Sodium Level 128#L, Potassium Level 6.1*H, Chloride Level 97L, Carbon Dioxide Level 17L, Calcium Level 8.0L, Aspartate Amino Transf (AST/SGOT) 92H, Alanine Aminotransferase (ALT/SGPT) 103H, Alkaline Phosphatase 559H, Total Bilirubin 0.5, Total Protein 6.8, Albumin 2.3L, Magnesium Level 2.0, Albumin/Globulin Ratio 0.51L, Random Vancomycin Level 24.1 CBC/BMP Laboratory Tests 01/25/18 08:06 Red Blood Count 5.03, Mean Corpuscular Volume 79.5 L, Mean Corpuscular Hemoglobin 24.1 L, Mean Corpuscular Hemoglobin Concent 30.3 L, Red Cell Distribution Width 24.3 H, Neutrophils (%) (Auto) 93.2 H, Lymphocytes (%) (Auto) 5.1 L, Monocytes (%) (Auto) 0.9, Eosinophils (%) (Auto) 0.0, Basophils (%) (Auto) 0.3, Neutrophils # (Auto) 6.2, Lymphocytes # (Auto) 0.3 L, Monocytes # (Auto) 0.1, Eosinophils # (Auto) 0.0, Basophils # (Auto) 0.0, Calcium Level 8.0 L, Aspartate Amino Transf (AST/SGOT) 92 H, Alanine Aminotransferase (ALT/SGPT) 103 H, Alkaline Phosphatase 559 H, Total Bilirubin 0.5, Total Protein 6.8, Albumin 2.3 L Microbiology Microbiology 01/17/18 Stool Occult Blood (HUNG) - Final, Complete 01/17/18 Stool Occult Blood (HUNG) - Final, Complete 01/17/18 Stool Occult Blood ([facility]UNG) - Final, Complete 01/16/18 Gastrointestinal Tract Panel (PCR) - Final, Complete Clostridium Difficile A/B 01/24/18 Respiratory Virus Panel (PCR) ([facility]) - Final, Complete PADMINI FIGUEROA PA-C Jan 25, 2018 10:30
[2018-01-25] MEDS: methylPREDNISolone INJ 125 MG/2 ML VIAL (J2930) IV SCH ×2 (11:22→22:58)
[2018-01-25] MEDS ORDERED: HEPARIN 1,000 UNITS/ML 10ML VIAL (FOR RADIOLOGY& DIALYSIS ONLY) IV ONE (11:45)
[2018-01-25 14:00] VITALS: BP 137/65
--- NOTE | 2018-01-25 14:24 | IPN ---
DATE: 01/25/2018 SUBJECTIVE: The patient was seen and examined at the bedside today morning during hemodialysis procedure. She was tolerating the dialysis procedure well. She reports that her cough is improving. She was started on Solu-Medrol; however, her sugar levels are very high. Her right foot debridement was postponed because the patient refused it yesterday because of cough and shortness of breath. OBJECTIVE: VITAL SIGNS: Temperature is 98.3 degrees Fahrenheit, blood pressure 140/82, pulse is 73, respiratory rate of 17, saturating 92% on room air. INTAKE AND OUTPUT: Urine output was not recorded. Weight on the bed scale is 86.2 kg. PHYSICAL EXAMINATION: GENERAL: The patient is awake, alert and oriented times three, laying in the bed and getting hemodialysis done. HEAD AND NECK: Extraocular muscles intact. Pupils are equally round and reactive to light. Neck is supple. She has a right internal jugular (IJ) tunneled hemodialysis catheter. CARDIOVASCULAR: S1, S2, regular rate. Trace edema of the right lower extremity. RESPIRATORY: Decreased breath sounds at the bases with very mild expiratory rhonchi, which are better today as compared with yesterday. ABDOMEN: Soft. Positive bowel sounds. Nontender. No organomegaly. MUSCULOSKELETAL: Dressing on the right foot transmetatarsal amputation site and left below-knee amputation. CENTRAL NERVOUS SYSTEM (REJOGGER): No focal deficit. Power is 5/5 in all extremities. AV ACCESS: The patient has a right upper arm AV fistula with positive thrill and bruit, but it is not ready for use at this point. LABORATORY REVIEW: CBC showed a WBC of 6.6, hemoglobin 12, platelets are 323. BMP showed sodium 128, potassium 3.1, chloride 97, bicarbonate 17, BUN 54, creatinine 3.9, glucose 693, calcium 8, albumin 2.3. CURRENT INPATIENT MEDICATIONS: The patient's medications were all reviewed by me. Her vancomycin dose has been changed to 750 mg at hemodialysis. She continues to be on Solu-Medrol 60 mg by mouth 12 hours, which was started yesterday. She continues to be on oral vancomycin, no other change in the medications today. ASSESSMENT AND PLAN: 1. End-stage renal disease on hemodialysis. The patient's regular dialysis days are Monday, , Monday. She is being dialyzed today according to her regular schedule. For optimization of volume status, I will try to removal at 3.5 to 4 liters of fluid was tolerated by her blood pressure. 2. Hyperkalemia. The patient is being dialyzed with a 2 K bath. I will switch it to 1 K in the last hour of dialysis for improvement of her potassium. 3. Acute chronic obstructive pulmonary disease (COPD) exacerbation. The patient was started on IV Solu-Medrol. Her wheezing is significantly better. Continue Solu-Medrol for at least four days. 4. Clostridium (C) difficile colitis. Diarrhea is improving. Continue oral vancomycin. 5. Chronic combined systolic and diastolic congestive heart failure. The patient has a very low ejection fraction (EF) around 15%. Fluid status is being optimized with dialysis. Continue fluid restriction and low sodium diet. Continue metoprolol and candesartan. 6. Infected right foot transmetatarsal amputation site. Continue IV vancomycin. Pending possible debridement by vascular surgery. 7. Hyperglycemia. The patient is an insulin dependent diabetic. Her sugar levels are high because of use of Solu-Medrol. Continue insulin sliding scale and insulin Levemir 30 units subcutaneously daily.
[2018-01-25] MEDS: **VANCO AFTER HD** MISC XX SCH (15:56)
[2018-01-25] MEDS: VANCOMYCIN HCL 750 MG, VIAL MATE ADAPTER 1 EACH in D5W 250 ML IV SCH (16:05)
--- NOTE | 2018-01-25 16:06 | IPNPDOC ---
Text Note Date of Service The patient was seen on 01/25/18. NOTE SUBJECTIVE: The patient is seen and examined in the room today. The patient still her stool is more formed. She is complaining about wheeze. Patient is agitated this morning she is NPO for few hours for liver US. OBJECTIVE: VITAL SIGNS: Listed below. GENERAL: No sign of acute distress, alert and oriented times three. HEENT: Normocephalic, atraumatic. Extraocular motor grossly intact. CARDIOVASCULAR: Positive S1, S2, regular rate. LUNGS: Clear to auscultation bilaterally. ABDOMEN: Soft, nontender, nondistended. Bowel sounds present. EXTREMITIES: Left below-knee amputation. Right lower extremity wrapped with a dressing. There is some discomfort to palpation. LABORATORY DATA: Listed below. ASSESSMENT AND PLAN: #. Clostridium (C) difficile colitis. - On oral vancomycin since 01/17/18. The patient's stool has become more formed. #. Right foot metatarsal amputation with ulcerations. - Wound culture from 10/29/2017 grew Enterococcus faecalis, Staphylococcus aureus, Corynebacteria. On IV vancomycin with dialysis. - Dr. Stern is consulted. Patient will need wound debridement. # COPD exacerbation - On steroid. On azithromycin. # Elevated liver function test. - Medications reviewed. Follow up with liver ultrasound. #. Insulin-dependent diabetes - Due to COPD exacerbation, patient is on steroid. Glucose has been very uncontrolled. On Levemir. On sliding scale. On consistent-carbohydrate diet. #. End-stage renal disease, on hemodialysis. The patient will have hemodialysis today on 01/23/2018. We appreciate nephrology's assistance. #. Hypertension. The patient is on metoprolol. #. Hypomagnesemia. Continue to monitor. Supplement as needed. #. Hyperkalemia. The patient will have hemodialysis on 01/23/2018. Continue to monitor. #. Dyslipidemia, on statin. #. Coronary artery disease, status post percutaneous coronary angioplasty ([employer]), on aspirin, Lipitor, Plavix. #. Systolic and diastolic dysfunction, secondary to ischemic cardiomyopathy. Ejection fraction (EF) of 15%. No sign of fluid overload at this moment. #. Peripheral vascular disease, status post left below-knee amputation (BKA), status post multiple stent placement previously. #. History of chronic obstructive pulmonary disease (COPD). No exacerbation. #. Medical noncompliance. #. Deep vein thrombosis (DVT) prophylaxis, on heparin. VS,Fishbone, I+O VS, Fishbone, I+O Laboratory Tests 01/25/18 08:06 Red Blood Count 5.03, Mean Corpuscular Volume 79.5 L, Mean Corpuscular Hemoglobin 24.1 L, Mean Corpuscular Hemoglobin Concent 30.3 L, Red Cell Distribution Width 24.3 H, Neutrophils (%) (Auto) 93.2 H, Lymphocytes (%) (Auto) 5.1 L, Monocytes (%) (Auto) 0.9, Eosinophils (%) (Auto) 0.0, Basophils (%) (Auto) 0.3, Neutrophils # (Auto) 6.2, Lymphocytes # (Auto) 0.3 L, Monocytes # (Auto) 0.1, Eosinophils # (Auto) 0.0, Basophils # (Auto) 0.0, Calcium Level 8.0 L, Aspartate Amino Transf (AST/SGOT) 92 H, Alanine Aminotransferase (ALT/SGPT) 103 H, Alkaline Phosphatase 559 H, Total Bilirubin 0.5, Total Protein 6.8, [place] min 2.3 L Vital Signs Date Time Temp Pulse Resp B/P (MAP) Pulse Ox O2 Delivery O2 Flow Rate FiO2 01/25/18 14:00 97.6 66 19 137/65 (89) 90 Room Air I&O- Last 24 Hours up to 6 AM 01/25/18 06:00 Intake Total 1200 ml Output Total 0 ml Balance 1200 ml WILIAM JOHNS DO Jan 25, 2018 16:06
[2018-01-25] MEDS ORDERED: dexameTHASONE 4 MG/ML 1ML VIAL (J1100) As Ordered ONE (16:57)
[2018-01-25] MEDS ORDERED: LIDOCAINE 2% INJ 100 MG/5 ML SDV (FOR ANES.) As Ordered ONE (16:57)
[2018-01-25] MEDS ORDERED: ONDANSETRON 4MG/2ML VIAL (J2405) As Ordered ONE (16:57)
[2018-01-25] MEDS ORDERED: PROPOFOL 200 MG/20 ML VIAL As Ordered ONE (16:57)
[2018-01-25] MEDS ORDERED: MIDAZOLAM INJ 2 MG/2 ML VIAL (J2250) As Ordered ONE (16:58)
[2018-01-25] MEDS ORDERED: fentaNYL 100 MCG/2 ML INJECTION (J3010) As Ordered ONE (16:58)
[2018-01-25] MEDS ORDERED: LIDOCAINE 1% SDV INJ 30 ML VIAL As Ordered ONE (17:34)
[2018-01-25] MEDS ORDERED: BUPIVACAINE HCL 0.5% 30 ML VIAL As Ordered ONE (17:34)
[2018-01-25] MEDS ORDERED: ONDANSETRON 4MG/2ML VIAL (J2405) IV PRN (18:00)
[2018-01-25] MEDS ORDERED: fentaNYL 100 MCG/2 ML INJECTION (J3010) IV PRN (18:00)
[2018-01-25] MEDS ORDERED: LR 1,000 ML IV SCH (18:00)
[2018-01-25] MEDS: AZITHROMYCIN 250 MG TAB PO SCH (18:16)
[2018-01-25] MEDS: ATORVASTATIN 20 MG TAB PO SCH (20:44)
[2018-01-25] MEDS: oxyCODONE 5MG TAB PO PRN (20:45)
[2018-01-25 22:00] VITALS: BP 130/68
[2018-01-26] MEDS: VANCOMYCIN ORAL SOL 250MG/5ML ORAL SYRINGE PO SCH ×5 (00:11→23:27)
[2018-01-26 06:00] VITALS: BP 156/92
[2018-01-26] MEDS: HEPARIN SOD (PORCINE) 5000 UNITS/ML VIAL SQ SCH ×3 (06:00→22:00)
[2018-01-26] MEDS: IPRATROPIUM 0.5MG/ALBUTEROL 2.5MG INH SOL UD 3ML (DUONEB)(J7620) NEB SCH ×4 (07:40→20:00)
[2018-01-26] MEDS ORDERED: HumaLOG INSULIN (NovoLOG) PER UNIT SC ONE ×2 (09:00→12:30)
[2018-01-26 09:13] LABS: BASO % 0.1 % (0.0-1.0); HEMOGLOBIN 11.5 g/dl (12.0-15.5); LYMPH # 0.5 10^3/uL (1.5-4.5); LYMPH % 5.3 % (24.0-44.0); MEAN CORPUSCULAR HEMOGLOBIN 24.5 pg (27.0-33.0); MEAN CORPUSCULAR HGB CONC 31.1 g/dl (32.0-36.5); MEAN CORPUSCULAR VOLUME 78.9 fl (80.0-96.0); MONO # 0.2 10^3/uL (0.0-0.8); MONO % 1.9 % (0.0-5.0); NEUTROPHILS # 9.1 10^3/uL (1.8-7.7); NEUTROPHILS % 92.3 % (36.0-66.0); PLATELET COUNT, AUTOMATED 351 10^3/uL (150-450); RED BLOOD COUNT 4.69 10^6/uL (4.00-5.40); WHITE BLOOD COUNT 9.9 10^3/uL (4.0-10.0)
[2018-01-26] MEDS: FAMOTIDINE 20 MG TAB PO SCH (09:22)
[2018-01-26] MEDS: CLOPIDOGREL 75 MG TAB PO SCH (09:22)
[2018-01-26] MEDS: SERTRALINE 100 MG TAB PO SCH (09:22)
[2018-01-26] MEDS: AZITHROMYCIN 250 MG TAB PO SCH (09:22)
[2018-01-26] MEDS: FLUTICASONE PROP 0.05% NASAL SPRAY 16 GM (FLONASE) SCH ×2 (09:23→22:52)
[2018-01-26] MEDS: ALPRAZolam 0.5 MG TAB PO SCH ×3 (09:23→22:51)
[2018-01-26] MEDS: ASPIRIN 81 MG ENTERIC TAB PO SCH (09:23)
[2018-01-26] MEDS: guaiFENesin ER 600 MG TAB PO SCH ×2 (09:23→22:50)
[2018-01-26] MEDS: HumaLOG INSULIN (NovoLOG) PER UNIT SC SCH ×4 (09:24→22:54)
[2018-01-26] MEDS: LEVEMIR (INSULIN DETEMIR) 1 UNITS/0.01ML SC SCH ×2 (09:24→22:55)
[2018-01-26] MEDS: DIAPER RELIEF PASTE (DESITIN) 60GM TOP SCH (09:26)
[2018-01-26] MEDS: SANTYL OINT 30GM TOP SCH (09:27)
[2018-01-26] MEDS: NYSTATIN 100,000 UNITS/GM TOPICAL PWD 15 GM TOP SCH ×2 (09:27→22:53)
[2018-01-26] MEDS: METOPROLOL TART 50 MG TAB PO SCH ×2 (09:30→22:53)
[2018-01-26] MEDS: oxyCODONE 5MG TAB PO PRN (09:31)
[2018-01-26] MEDS: CANDESARTAN 4MG TABLET PO SCH (09:31)
--- NOTE | 2018-01-26 09:58 | IPNPDOC ---
Subjective Date Seen The patient was seen on 01/26/18. Subjective Chief Complaint/HPI Feeling better but still wheeze, HD yesterday, Rt foot wound bled with pain. Objective Physical Examination General Exam: Positive: Alert, Cooperative, Mild Distress Eye Exam: Positive: PERRLA, EOMI ENT Exam: Positive: Atraumatic, Other ENT (facial swelling) Neck Exam: Positive: Supple; Negative: JVD Chest Exam: Positive: Wheezing (significantly diminished ), Diminished (breath sounds aden); Negative: Clear to auscultation, Normal air movement, Rales, Rhonchi, Other Heart Exam: Positive: Rate Normal, Regular Rhythm, Normal S1, Normal S2; Negative: Gallops, Murmurs, Rubs, Other Abdomen Exam: Positive: Normal bowel sounds, Soft; Negative: Tenderness Extremity Exam: Positive: Other (LLE BKA, Right foot dressing soaked with dark red blood, slow oozing from where debridement took place. purple color change to fore plantar); Negative: Clubbing, Cyanosis, Edema, Tenderness Neuro Exam: Positive: Normal Speech, Strength at 5/5 X4 ext, Cranial Nerves 3- 12 NL Psych Exam: Positive: Anxiety, Oriented x 3 Assessment /Plan Assessment 1. Infected nonhealing wound of right forefoot s/p TMA, s/p debridement, slow oozing with surrounding purple color change in plantar 2. Insulin dependent DM, FBS 582 today 3. ESRD on HD TThSa 4. Acute COPD exacerbation resolving 5. Combined systolic and diastolic CHF 6. C. Diff colitis Plan/VTE VTE Prophylaxis Ordered?: Yes Plan 1. Continue current regimen per hospital med and nephrology 2. dressing change with wet to dry dressing with Dakins q8 hrs VS, I&O, 24H, Fishbone Vital Signs/I&O Vital Signs Date Time Temp Pulse Resp B/P (MAP) Pulse Ox O2 Delivery O2 Flow Rate FiO2 01/26/18 09:31 80 20 170/82 Room Air 01/26/18 06:00 96.8 92 01/25/18 17:50 2 I&O- Last 24 Hours up to 6 AM 01/26/18 06:00 Intake Total 470 ml Output Total 4000 ml Balance -3530 ml Laboratory Data 24H LABS Laboratory Tests 2 01/26/18 08:57: Immature Granulocyte % (Auto) 0.4, White Blood Count 9.9, Red Blood Count 4.69, Hemoglobin 11.5L, Hematocrit 37.0, Mean Corpuscular Volume 78.9L, Mean Corpus cular Hemoglobin 24.5L, Mean Corpuscular Hemoglobin Concent 31.1L, Red Cell Distribution Width 23.9H, Platelet Count 351, Neutrophils (%) (Auto) 92.3H, Lymphocytes (%) (Auto) 5.3L, Monocytes (%) (Auto) 1.9, Eosinophils (%) (Auto) 0.0, Basophils (%) (Auto) 0.1, Neutrophils # (Auto) 9.1H, Lymphocytes # (Auto) 0.5L, Monocytes # (Auto) 0.2, Eosinophils # (Auto) 0.0, Basophils # (Auto) 0.0, Nucleated Red Blood Cells % (auto) 0.0 CBC/BMP Laboratory Tests 01/26/18 08:57 Red Blood Count 4.69, Mean Corpuscular Volume 78.9 L, Mean Corpuscular Hemoglobin 24.5 L, Mean Corpuscular Hemoglobin Concent 31.1 L, Red Cell Distribution Width 23.9 H, Neutrophils (%) (Auto) 92.3 H, Lymphocytes (%) (Auto) 5.3 L, Monocytes (%) (Auto) 1.9, Eosinophils (%) (Auto) 0.0, Basophils (%) (Auto) 0.1, Neutrophils # (Auto) 9.1 H, Lymphocytes # (Auto) 0.5 L, Monocytes # (Auto) 0.2, Eosinophils # (Auto) 0.0, Basophils # (Auto) 0.0 Microbiology Microbiology 01/17/18 Stool Occult Blood (HUNG) - Final, Complete 01/17/18 Stool Occult Blood (HUNG) - Final, Complete 01/17/18 Stool Occult Blood (HUNG) - Final, Complete 01/16/18 Gastrointestinal Tract Panel (PCR) - Final, Complete Clostridium Difficile A/B 01/24/18 Respiratory Virus Panel (PCR) ([facility]G) - Final, Complete PADMINI FIGUEROA PA-C Jan 26, 2018 09:58
[2018-01-26 10:08] LABS: ALBUMIN 2.2 GM/DL (3.2-5.2); BILIRUBIN,TOTAL 0.5 MG/DL (0.2-1.0); CALCIUM LEVEL 7.9 MG/DL (8.5-10.1); CREATININE FOR GFR 3.21 MG/DL (0.55-1.30); GLOMERULAR FILTRATION RATE 15.9 (>51); MAGNESIUM LEVEL 1.9 MG/DL (1.8-2.4); POTASSIUM SERUM 5.5 MEQ/L (3.5-5.1); TOTAL PROTEIN 6.5 GM/DL (6.4-8.2)
[2018-01-26] MEDS: methylPREDNISolone INJ 125 MG/2 ML VIAL (J2930) IV SCH (10:47)
[2018-01-26] MEDS ORDERED: PATIROMER SORBITEX CALCIUM 8.4 GM POWDER PACKET (VELTASSA) PO ONE (12:00)
[2018-01-26] MEDS ORDERED: PILL CRUSHER/CUTTER 1 EACH XX PRN (12:00)
[2018-01-26 14:00] VITALS: BP 124/78
--- NOTE | 2018-01-26 14:16 | IPNPDOC ---
Text Note Date of Service The patient was seen on 01/26/18. NOTE SUBJECTIVE: The patient is seen and examined in the room today. The patient states her stool is formed. She still has wheeze. Patient refused liver ultrasound. She tolerated wound debridement. OBJECTIVE: VITAL SIGNS: Listed below. GENERAL: No sign of acute distress, alert and oriented times three. HEENT: Normocephalic, atraumatic. Extraocular motor grossly intact. CARDIOVASCULAR: Positive S1, S2, regular rate. LUNGS: Clear to auscultation bilaterally. ABDOMEN: Soft, nontender, nondistended. Bowel sounds present. EXTREMITIES: Left below-knee amputation. Right lower extremity wrapped with a dressing. There is some discomfort to palpation. LABORATORY DATA: Listed below. ASSESSMENT AND PLAN: #. Clostridium (C) difficile colitis. - On oral vancomycin since 01/17/18. Today is day 10. The patient's stool is formed. #. Right foot metatarsal amputation with ulcerations. - Wound culture from 10/29/2017 grew Enterococcus faecalis, Staphylococcus aureus, Corynebacteria. On IV vancomycin with dialysis. - Dr. Stern is consulted. S/P wound debridement. # COPD exacerbation - On tapering steroid. On azithromycin. # Elevated liver function test. - Medications reviewed. Patient refused liver ultrasound. Liver function is improving. #. Insulin-dependent diabetes - Due to COPD exacerbation, patient is on steroid. Glucose has been very uncontrolled. On Levemir. On sliding scale. On consistent-carbohydrate diet. #. End-stage renal disease, on hemodialysis. We appreciate nephrology's assistance. #. Hypertension. The patient is on metoprolol. #. Hypomagnesemia. Continue to monitor. Supplement as needed. #. Hyperkalemia. Patient is on dialysis. Continue to monitor. #. Dyslipidemia, on statin. #. Coronary artery disease, status post percutaneous coronary angioplasty ([facility]C TECH), on aspirin, Lipitor, Plavix. #. Systolic and diastolic dysfunction, secondary to ischemic cardiomyopathy. Ejection fraction (EF) of 15%. No sign of fluid overload at this moment. #. Peripheral vascular disease, status post left below-knee amputation (BKA), status post multiple stent placement previously. #. Medical noncompliance. #. Deep vein thrombosis (DVT) prophylaxis, on heparin. VS,Fishbone, I+O VS, Fishbone, I+O Laboratory Tests 01/26/18 08:57 Red Blood Count 4.69, Mean Corpuscular Volume 78.9 L, Mean Corpuscular Hemoglobin 24.5 L, Mean Corpuscular Hemoglobin Concent 31.1 L, Red Cell Distribution Width 23.9 H, Neutrophils (%) (Auto) 92.3 H, Lymphocytes (%) (Auto) 5.3 L, Monocytes (%) (Auto) 1.9, Eosinophils (%) (Auto) 0.0, Basophils (%) (Auto) 0.1, Neutrophils # (Auto) 9.1 H, Lymphocytes # (Auto) 0.5 L, Monocytes # (Auto) 0.2, Eosinophils # (Auto) 0.0, Basophils # (Auto) 0.0, Calcium Level 7.9 L, Aspartate Amino Transf (AST/SGOT) 34, Alanine Aminotransferase (ALT/SGPT) 74, Alkaline Phosphatase 391 H, Total Bilirubin 0.5, Total Protein 6.5, Albumin 2.2 L Vital Signs Date Time Temp Pulse Resp B/P (MAP) Pulse Ox O2 Delivery O2 Flow Rate FiO2 01/26/18 14:00 98.6 77 16 124/78 (93) 94 Room Air 01/25/18 17:50 2 I&O- Last 24 Hours up to 6 AM0 01/26/18 06:00 Intake Total 470 ml Output Total 4000 ml Balance -3530 ml WILIAM JOHNS DO Jan 26, 2018 14:16
--- NOTE | 2018-01-26 16:19 | IPN ---
DATE: 01/26/2018 SUBJECTIVE: Patient was seen and examined at the bedside today morning. She was dialyzed yesterday. Four liters of fluid was removed. She is afebrile. She reports that her cough is significantly better. She got debridement of the foot transmetatarsal amputation site yesterday. OBJECTIVE: Vital signs: Temperature is 96.8 degrees Fahrenheit, blood pressure 156/92, pulse is 64, respiratory rate of 16, saturating 92% on room air. Intake and output: Urine output is not recorded. Ultrafiltration with hemodialysis was 4 liters yesterday. Weight in the bed scale was 86.2 kg yesterday. PHYSICAL EXAMINATION: GENERAL: Patient is awake, alert, oriented times three, sitting up in bed. No apparent distress. HEAD AND NECK: Extraocular muscles intact. Pupils equally round and reactive to light. Neck is supple. She has a right internal jugular (IJ) tunneled hemodialysis catheter. CARDIOVASCULAR: S1, S2, regular rate. Trace edema of the bilateral lower extremities. RESPIRATORY: Mildly decreased breath sounds at the bases with harsh vesicular breathing. Breath sounds are better clinically today as compared with yesterday. ABDOMEN: Soft. Positive bowel sounds. Nontender. No organomegaly. MUSCULOSKELETAL: She has a dressing on the right foot transmetatarsal amputation site that was just debrided yesterday, and she has a left below-knee amputation. CENTRAL NERVOUS SYSTEM: No focal deficit. Power is 5/5 in all extremities. ARTERIOVENOUS (AV) ACCESS: She has a right upper arm AV fistula with thrill and bruit, but it is nonmature for use at this point. LABORATORY REVIEW: CBC showed a WBC 9.9, hemoglobin 11.5, platelets are 351. BMP showed sodium 130, potassium 5.5, chloride 95, bicarbonate is 19, BUN 45, creatinine is 3.2, glucose 582, calcium 7.9, albumin is 2.2. CURRENT INPATIENT MEDICATIONS: Patient's medications were all reviewed by me. She continues to be on intravenous (IV) vancomycin and oral vancomycin. She is getting intravenous (IV) Solu-Medrol for chronic obstructive pulmonary disease (COPD) exacerbation. I am going to decrease the dose to 40 mg every 12 hours. ASSESSMENT AND PLAN: 1. End-stage renal disease, on hemodialysis. Patient was dialyzed yesterday according to her Monday, , Monday schedule. Four liters of fluid was removed. 2. Hyperkalemia. Patient has persistent hyperkalemia despite being dialyzed with 2K and 1K bath yesterday. She will be dialyzed again tomorrow with 1K bath. Some of the hyperkalemia is being induced by use of candesartan. Diet is being changed to low-potassium diet. 3. Acute COPD exacerbation. Patient's symptoms are significantly better with IV Solu-Medrol; however, her hyperglycemia is worse. I have changed the Solu-Medrol to 40 mg every 12 hours now. 4. Clostridium (C) difficile colitis. Diarrhea is significantly better. Continue oral vancomycin. 5. Chronic combined systolic and diastolic congestive heart failure. Patient is on candesartan 4 mg daily. She is also on metoprolol 50 mg twice a day. Volume status is being optimized with dialysis. Because of the persistent hyperkalemia, I would decreased the candesartan dose to 2 mg daily. 6. Infected right foot transmetatarsal amputation site. Patient continues to be on IV vancomycin. She got debridement of the wound done yesterday. 7. Insulin-dependent diabetes mellitus and hyperglycemia. Her sugar was again 579 today. Solu-Medrol dose has been decreased. Continue insulin sliding scale.
[2018-01-26] MEDS: **VANCO AFTER HD** MISC XX SCH (16:48)
[2018-01-26] MEDS: DAKIN'S 0.25% HALF-STRENGTH SOLN 480 ML TOP SCH ×2 (16:48→22:52)
[2018-01-26 22:00] VITALS: BP 144/67
[2018-01-26] MEDS: ATORVASTATIN 20 MG TAB PO SCH (22:51)
[2018-01-26] MEDS: methylPREDNISolone INJ 40 MG/1 ML VIAL (J2920) IV SCH (22:52)
[2018-01-27 06:00] VITALS: BP 158/90
[2018-01-27] MEDS: VANCOMYCIN ORAL SOL 250MG/5ML ORAL SYRINGE PO SCH ×2 (06:26→15:50)
[2018-01-27] MEDS: AZITHROMYCIN 250 MG TAB PO SCH (06:27)
[2018-01-27] MEDS: ASPIRIN 81 MG ENTERIC TAB PO SCH (06:27)
[2018-01-27] MEDS: CLOPIDOGREL 75 MG TAB PO SCH (06:27)
[2018-01-27] MEDS: SERTRALINE 100 MG TAB PO SCH (06:27)
[2018-01-27] MEDS: FAMOTIDINE 20 MG TAB PO SCH (06:27)
[2018-01-27] MEDS: ALPRAZolam 0.5 MG TAB PO SCH ×3 (06:27→21:53)
[2018-01-27] MEDS: guaiFENesin ER 600 MG TAB PO SCH ×2 (06:27→21:53)
[2018-01-27] MEDS: FLUTICASONE PROP 0.05% NASAL SPRAY 16 GM (FLONASE) SCH ×2 (06:28→21:55)
[2018-01-27] MEDS: METOPROLOL TART 50 MG TAB PO SCH ×2 (06:28→21:54)
[2018-01-27] MEDS: NYSTATIN 100,000 UNITS/GM TOPICAL PWD 15 GM TOP SCH ×2 (06:29→21:55)
[2018-01-27] MEDS: SANTYL OINT 30GM TOP SCH (06:29)
[2018-01-27] MEDS: DIAPER RELIEF PASTE (DESITIN) 60GM TOP SCH (06:29)
[2018-01-27] MEDS: DAKIN'S 0.25% HALF-STRENGTH SOLN 480 ML TOP SCH ×3 (06:30→21:56)
[2018-01-27] MEDS: HEPARIN SOD (PORCINE) 5000 UNITS/ML VIAL SQ SCH ×3 (06:30→21:55)
[2018-01-27] MEDS: ANEXSIA, NORCO 7.5MG/325MG TABLET(HYDROCODONE/APAP) PO PRN ×2 (06:31→21:54)
[2018-01-27] MEDS: IPRATROPIUM 0.5MG/ALBUTEROL 2.5MG INH SOL UD 3ML (DUONEB)(J7620) NEB SCH (08:00)
[2018-01-27] MEDS: HumaLOG INSULIN (NovoLOG) PER UNIT SC SCH ×4 (08:28→21:00)
[2018-01-27] MEDS: LEVEMIR (INSULIN DETEMIR) 1 UNITS/0.01ML SC SCH ×2 (08:28→21:55)
[2018-01-27] MEDS: CANDESARTAN 4MG TABLET PO SCH (08:29)
[2018-01-27 09:57] LABS: BASO % 0.1 % (0.0-1.0); HEMATOCRIT 35.2 % (36.0-47.0); LYMPH # 0.6 10^3/uL (1.5-4.5); LYMPH % 6.3 % (24.0-44.0); MEAN CORPUSCULAR HEMOGLOBIN 24.7 pg (27.0-33.0); MEAN CORPUSCULAR HGB CONC 31.3 g/dl (32.0-36.5); MEAN CORPUSCULAR VOLUME 79.1 fl (80.0-96.0); MONO # 0.4 10^3/uL (0.0-0.8); MONO % 4.1 % (0.0-5.0); NEUTROPHILS # 8.6 10^3/uL (1.8-7.7); NEUTROPHILS % 89.2 % (36.0-66.0); PLATELET COUNT, AUTOMATED 345 10^3/uL (150-450); RED BLOOD COUNT 4.45 10^6/uL (4.00-5.40); WHITE BLOOD COUNT 9.6 10^3/uL (4.0-10.0)
[2018-01-27 10:28] LABS: ALBUMIN 2.3 GM/DL (3.2-5.2); BILIRUBIN,TOTAL 0.5 MG/DL (0.2-1.0); CALCIUM LEVEL 7.5 MG/DL (8.5-10.1); CREATININE FOR GFR 3.54 MG/DL (0.55-1.30); GLOMERULAR FILTRATION RATE 14.2 (>51); MAGNESIUM LEVEL 1.9 MG/DL (1.8-2.4); PHOSPHORUS LEVEL 6.8 MG/DL (2.5-4.9); POTASSIUM SERUM 5.2 MEQ/L (3.5-5.1); TOTAL PROTEIN 6.3 GM/DL (6.4-8.2); VANCOMYCIN RANDOM 22.2 UG/ML
--- NOTE | 2018-01-27 10:47 | PHACANCOPD ---
PHARMACY VANCOMYCIN DOSING Pt Demographics Demographics Patient Age:57 , Weight:86.200 , Gender: female Adjusted Body Weight Date: 01/17/18, Adjusted Body Weight: Kg Events Past 24 Hours Events Past 24 Hours: YES: Dialysis; NO: Diuretic Therapy, Change in CrCl, Fever, Elevation in WBC, Pending Diagnostics, Pending Procedures, Other Vancomycin Vancomycin indication: INFECTED FOOT WOUND Vancomycin Target Ranges: 15-20 mcg/ml Vancomycin Load Y/N: No Load Dose Date Time Vancomycin Load Dose: Date: Time: Vancomycin Dose Date: 01/17/18. Current Vancomycin Dose: [1GM AFTER HD] Intermittent Dosing?: No Labs Labs Vital Signs Label Value Date Time Pulse 73 01/25/18 0600 Item Value Date Time Random Vancomycin Level 22.2 UG/ML 01/27/18 0928 Random Vancomycin Level 24.1 UG/ML 01/25/18 0806 Random Vancomycin Level 16.1 UG/ML 01/23/18 0624 Creatinine 3.54 MG/DL H 01/27/18 0928 Creatinine 3.21 MG/DL H 01/26/18 0857 Creatinine 3.98 MG/DL H 01/25/18 0806 White Blood Count 9.6 10^3/uL 01/27/18 0928 White Blood Count 9.9 10^3/uL 01/26/18 0857 White Blood Count 6.6 10^3/uL 01/25/18 0806 Micro Microbiology 01/17/18 Stool Occult Blood (HUNG) - Final, Complete 01/17/18 Stool Occult Blood (HUNG) - Final, Complete 01/17/18 Stool Occult Blood (HUNG) - Final, Complete 01/24/18 Respiratory Virus Panel (PCR) ([facility]UNG) - Final, Complete Creatinine Clearance Date:01/17/18. Creatinine Clearance: . Assessment and Plan Maintaining Current Dose?: Yes Reason for dose change: No Dose Change Pharmacist Note Pharmacist Note 01/27/18: Random this AM resulted at 22.2mcg/ml. Level is coming down. I have scheduled a random for AM before next dialysis session to ensure appropriate level. We will continue to monitor and adjust dose as needed. 01/25/18: Random this AM resulted at 24.2mcg/ml. The patient is continuing to accumulate. I have lowered the dose to Vanco 750mg IV HD. We will continue to monitor and adjust dose as needed. 01/23: patient's trough is back in range today at 16.1 so we will resume her Vancomycin 1gm after HD today. She is receiving HD today. Her WBC is within normal limits and she is afebrile. She is waiting for consult from Dr. Stern to see what her next steps are for her wound care. WE will continue to monitor and make adjustments as necessary. 01/20: Patient's random came back at 32.8 today. Her vancomycin was put on hold due to the high random this morning. She is receiving dialysis today and we will reevaluate random in the morning. We will continue to monitor and make adjustments as necessary. Date: 01/17/18. Pharmacist note: Patient was started on Vancomycin today due to infected wound on her foot. Her previous wound cultures grew E.faecalis and MSSA. She is a dialysis patient with usual dialysis days of Monday, , and Monday. She has not received dialysis in over a week and therefore will receive dialysis today. They are unsure at this time what her dialysis schedule will be as they will be evaluating her day by day to see what her needs are. Currently she is set up with Vancomycin 1gm after HD and we will obtain a random level in the morning to make sure she is therapeutic range. We will continue to monitor and make adjustments as necessary. CELY GUALLPA PHARMACY Jan 27, 2018 10:47
[2018-01-27] MEDS ORDERED: LIDOCAINE 1% SDV 5 ML VIAL SQ ONE (13:00)
[2018-01-27] MEDS ORDERED: HEPARIN 1,000 UNITS/ML 10ML VIAL (FOR RADIOLOGY& DIALYSIS ONLY) IV ONE (13:00)
[2018-01-27] MEDS ORDERED: HEPARIN 1,000 UNITS/ML 10ML VIAL (FOR RADIOLOGY& DIALYSIS ONLY) XX ONE (13:00)
[2018-01-27] MEDS: methylPREDNISolone INJ 40 MG/1 ML VIAL (J2920) IV SCH (13:39)
[2018-01-27 14:00] VITALS: BP 156/57
[2018-01-27] MEDS: predniSONE 10 MG TAB PO SCH (15:50)
--- NOTE | 2018-01-27 15:50 | IPN ---
DATE: 01/27/2018 SUBJECTIVE: Patient was seen and examined at the bedside today morning during hemodialysis procedure. She is tolerating the hemodialysis procedure well. She reports her cough and wheezing are significantly better. She continues to be very hyperglycemic because of the intravenous (IV) Solu-Medrol. OBJECTIVE: Vital signs: Temperature 97.7 degrees Fahrenheit, blood pressure 156/57, pulse is 57, respiratory rate of 19, saturating 95% on room air. Intake and output: Urine output recorded is 0 mL. Weight in the bed scale is not available. PHYSICAL EXAMINATION: GENERAL: Patient is awake, alert, oriented times three, lying in bed getting hemodialysis done. No apparent distress. HEAD AND NECK: Extraocular muscles intact. Pupils equally round and reactive to light. Mucous membranes are moist. Neck is supple. She has right internal jugular (IJ) tunneled hemodialysis catheter. CARDIOVASCULAR: S1, S2, regular rate. Trace edema of the right lower extremity. RESPIRATORY: Chest is clear to auscultation bilaterally. Bilateral equal air entry. No rales or rhonchi. ABDOMEN: Soft. Positive bowel sounds. Nontender. No organomegaly. MUSCULOSKELETAL: She has a dressing on the right foot transmetatarsal amputation (TMA) site, and she has left below-knee amputation. CENTRAL NERVOUS SYSTEM: No focal deficit. Power is 5/5 in all extremities. ARTERIOVENOUS (AV) ACCESS: Right upper AV fistula with thrill and bruit. LABORATORY REVIEW: CBC showed a WBC 9.6, hemoglobin is 11, platelets are 345. BMP showed sodium 135, potassium 5.2, chloride 102, bicarbonate 24, BUN 67, creatinine is 3.5, phosphorus 6.8, albumin 2.3. CURRENT INPATIENT MEDICATIONS: Patient continues to be on intravenous (IV) vancomycin with hemodialysis. She continues to be on oral vancomycin as well. IV Solu-Medrol has been stopped. She has been started on prednisone, tapering dose. ASSESSMENT AND PLAN: 1. End-stage renal disease, on hemodialysis. Patient is being dialyzed today according to her Monday, , Monday (TTS) schedule. Ultrafiltration goal will be 4.5 liters as tolerated by blood pressure. 2. Hyperkalemia. Patient is being dialyzed with a 2K bath. She was given a dose of Veltassa yesterday. Candesartan dose was changed to 2 mg by mouth daily. 3. Chronic combined systolic and diastolic congestive heart failure. Continue metoprolol 50 mg by mouth twice a day. Continue candesartan 2 mg daily. Rest of the volume status is being managed with hemodialysis. 4. Acute chronic obstructive pulmonary disease (COPD) exacerbation. IV Solu-Medrol is being stopped. Patient is being started on oral prednisone taper. Continue nebulizations. Wheezing is significantly better. 5. Clostridium (C) difficile colitis. Continue current dose of oral vancomycin. 6. Infected right foot transmetatarsal amputation site. Patient is getting IV vancomycin. Debridement of the wound was done on 01/25/2018. 7. Diabetes mellitus, type 2, insulin dependent. Patient was hyperglycemic because of Solu-Medrol. Steroids will be tapered down now. A 10-day course of tapering prednisone was ordered.
[2018-01-27] MEDS: oxyCODONE 5MG TAB PO PRN (15:51)
[2018-01-27] MEDS: VANCOMYCIN HCL 750 MG, VIAL MATE ADAPTER 1 EACH in D5W 250 ML IV SCH (15:51)
[2018-01-27] MEDS: **VANCO AFTER HD** MISC XX SCH (16:00)
--- NOTE | 2018-01-27 17:58 | IPNPDOC ---
Text Note Date of Service The patient was seen on 01/27/18. NOTE SUBJECTIVE: The patient is seen and examined in the room today after dialysis. Patient states her stool are formed. Denies significant shortness of breath. No acute event is reported. OBJECTIVE: VITAL SIGNS: Listed below. GENERAL: No sign of acute distress, alert and oriented times three. HEENT: Normocephalic, atraumatic. Extraocular motor grossly intact. CARDIOVASCULAR: Positive S1, S2, regular rate. LUNGS: Clear to auscultation bilaterally. ABDOMEN: Soft, nontender, nondistended. Bowel sounds present. EXTREMITIES: Left below-knee amputation. Right lower extremity wrapped with a dressing. There is some discomfort to palpation. LABORATORY DATA: Listed below. ASSESSMENT AND PLAN: #. Right foot metatarsal amputation with ulcerations. - Wound culture from 10/29/2017 grew Enterococcus faecalis, Staphylococcus aureus, Corynebacteria. On IV vancomycin with dialysis. - Dr. Stern is consulted. S/P wound dbridements. #. Clostridium (C) difficile colitis. - S/P oral vancomycin treatment. The patient's stool is formed. # COPD exacerbation - On tapering steroid. On azithromycin. # Elevated liver function test. - Medications reviewed. Patient refused liver ultrasound. Liver function is improving. #. Insulin-dependent diabetes - Due to COPD exacerbation, patient is on steroid. Glucose has been very uncontrolled. On Levemir. On sliding scale. On consistent-carbohydrate diet. #. End-stage renal disease, on hemodialysis. We appreciate nephrology's assist ance. #. Hypertension. The patient is on metoprolol. #. Hypomagnesemia. Continue to monitor. Supplement as needed. #. Hyperkalemia. Patient is on dialysis. Continue to monitor. #. Dyslipidemia, on statin. #. Coronary artery disease, status post percutaneous coronary angioplasty ([employer]), on aspirin, Lipitor, Plavix. #. Systolic and diastolic dysfunction, secondary to ischemic cardiomyopathy. Ejection fraction (EF) of 15%. No sign of fluid overload at this moment. #. Peripheral vascular disease, status post left below-knee amputation (BKA), status post multiple stent placement previously. #. Medical noncompliance. #. Deep vein thrombosis (DVT) prophylaxis, on heparin. VS,Fishbone, I+O VS, Fishbone, I+O Laboratory Tests 01/27/18 09:28 Red Blood Count 4.45, Mean Corpuscular Volume 79.1 L, Mean Corpuscular Hemoglobin 24.7 L, Mean Corpuscular Hemoglobin Concent 31.3 L, Red Cell Distribution Width 23.4 H, Neutrophils (%) (Auto) 89.2 H, Lymphocytes (%) (Auto) 6.3 L, Monocytes (%) (Auto) 4.1, Eosinophils (%) (Auto) 0.0, Basophils (%) (Auto) 0.1, Neutrophils # (Auto) 8.6 H, Lymphocytes # (Auto) 0.6 L, Monocytes # (Auto) 0.4, Eosinophils # (Auto) 0.0, Basophils # (Auto) 0.0, Calcium Level 7.5 L, Phosphorus Level 6.8 H, Aspartate Amino Transf (AST/SGOT) 48 H, Alanine Aminotransferase (ALT/SGPT) 67, Alkaline Phosphatase 350 H, Total Bilirubin 0.5, Total Protein 6.3 L, Albumin 2.3 L Vital Signs Date Time Temp Pulse Resp B/P (MAP) Pulse Ox O2 Delivery O2 Flow Rate FiO2 01/27/18 16:21 18 01/27/18 14:00 97.7 57 156/57 (90) 95 Room Air 01/25/18 17:50 2 I&O- Last 24 Hours up to 6 AM 01/27/18 06:00 Intake Total 1260 ml Output Total 200 ml Balance 1060 ml WILIAM JOHNS DO Jan 27, 2018 17:58
[2018-01-27] MEDS: ATORVASTATIN 20 MG TAB PO SCH (21:53)
[2018-01-27 22:00] VITALS: BP 160/68
[2018-01-28] MEDS: HEPARIN SOD (PORCINE) 5000 UNITS/ML VIAL SQ SCH ×3 (05:43→21:25)
[2018-01-28] MEDS: oxyCODONE 5MG TAB PO PRN ×2 (05:44→16:47)
[2018-01-28 06:00] VITALS: BP 168/80
[2018-01-28 06:48] LABS: HEMATOCRIT 36.5 % (36.0-47.0); HEMOGLOBIN 11.3 g/dl (12.0-15.5); LYMPH # 0.6 10^3/uL (1.5-4.5); LYMPH % 7.8 % (24.0-44.0); MEAN CORPUSCULAR HEMOGLOBIN 24.2 pg (27.0-33.0); MEAN CORPUSCULAR VOLUME 78.3 fl (80.0-96.0); MONO # 0.9 10^3/uL (0.0-0.8); MONO % 10.6 % (0.0-5.0); NEUTROPHILS # 6.7 10^3/uL (1.8-7.7); NEUTROPHILS % 81.2 % (36.0-66.0); PLATELET COUNT, AUTOMATED 322 10^3/uL (150-450); RED BLOOD COUNT 4.66 10^6/uL (4.00-5.40); WHITE BLOOD COUNT 8.2 10^3/uL (4.0-10.0)
[2018-01-28 07:17] LABS: ALBUMIN 2.2 GM/DL (3.2-5.2); BILIRUBIN,TOTAL 0.4 MG/DL (0.2-1.0); CALCIUM LEVEL 7.1 MG/DL (8.5-10.1); CREATININE FOR GFR 2.88 MG/DL (0.55-1.30); MAGNESIUM LEVEL 1.9 MG/DL (1.8-2.4); POTASSIUM SERUM 4.9 MEQ/L (3.5-5.1); TOTAL PROTEIN 6.2 GM/DL (6.4-8.2)
[2018-01-28] MEDS: predniSONE 10 MG TAB PO SCH (07:39)
[2018-01-28] MEDS: CLOPIDOGREL 75 MG TAB PO SCH (07:40)
[2018-01-28] MEDS: FAMOTIDINE 20 MG TAB PO SCH (07:40)
[2018-01-28] MEDS: SERTRALINE 100 MG TAB PO SCH (07:40)
[2018-01-28] MEDS: AZITHROMYCIN 250 MG TAB PO SCH (07:40)
[2018-01-28] MEDS: ASPIRIN 81 MG ENTERIC TAB PO SCH (07:40)
[2018-01-28] MEDS: ALPRAZolam 0.5 MG TAB PO SCH ×3 (07:40→21:27)
[2018-01-28] MEDS: guaiFENesin ER 600 MG TAB PO SCH ×2 (07:40→21:27)
[2018-01-28] MEDS: HumaLOG INSULIN (NovoLOG) PER UNIT SC SCH ×4 (07:41→21:26)
[2018-01-28] MEDS: LEVEMIR (INSULIN DETEMIR) 1 UNITS/0.01ML SC SCH ×2 (07:42→21:26)
[2018-01-28] MEDS: CANDESARTAN 4MG TABLET PO SCH (07:42)
[2018-01-28] MEDS: METOPROLOL TART 50 MG TAB PO SCH ×2 (07:44→21:27)
[2018-01-28] MEDS: DAKIN'S 0.25% HALF-STRENGTH SOLN 480 ML TOP SCH ×3 (07:45→21:25)
[2018-01-28] MEDS: FLUTICASONE PROP 0.05% NASAL SPRAY 16 GM (FLONASE) SCH ×2 (07:45→21:27)
[2018-01-28] MEDS: NYSTATIN 100,000 UNITS/GM TOPICAL PWD 15 GM TOP SCH ×2 (07:46→21:28)
[2018-01-28] MEDS: **hydrALAZINE** 10 MG TAB PO SCH ×2 (13:57→21:27)
[2018-01-28 14:00] VITALS: BP 160/60
[2018-01-28] MEDS: **VANCO AFTER HD** MISC XX SCH (16:00)
--- NOTE | 2018-01-28 18:09 | IPNPDOC ---
Text Note Date of Service The patient was seen on 01/28/18. NOTE SUBJECTIVE: The patient is seen and examined in the room today. Patient states her stools remain formed. Patient has noticed throat discomfort. Denies fever or chill. OBJECTIVE: VITAL SIGNS: Listed below. GENERAL: No sign of acute distress, alert and oriented times three. HEENT: Normocephalic, atraumatic. Extraocular motor grossly intact. CARDIOVASCULAR: Positive S1, S2, regular rate. LUNGS: Wheezes in bilateral lungs. No significant crackle. ABDOMEN: Soft, nontender, nondistended. Bowel sounds present. EXTREMITIES: Left below-knee amputation. Right lower extremity wrapped with a dressing. There is some discomfort to palpation. LABORATORY DATA: Listed below. ASSESSMENT AND PLAN: #. Right foot metatarsal amputation with ulcerations. - Wound culture from 10/29/2017 grew Enterococcus faecalis, Staphylococcus aureus, Corynebacteria. On IV vancomycin with dialysis. - Dr. Stern is consulted. S/P wound dbridements. - Patient has been refusing physical therapy. #. Clostridium (C) difficile colitis. - S/P oral vancomycin treatment. The patient's stool is formed. # COPD exacerbation - Adjusting steroid as needed. On azithromycin. # Elevated liver function test. - Medications reviewed. Patient refused liver ultrasound. Liver function is improving. #. Insulin-dependent diabetes - Due to COPD exacerbation, patient is on steroid. Glucose has been very uncontrolled. On Levemir. On sliding scale. On consistent-carbohydrate diet. #. End-stage renal disease, on hemodialysis. We appreciate nephrology's assistance. #. Hypertension. The patient is on metoprolol. #. Hypomagnesemia. Continue to monitor. Supplement as needed. #. Hyperkalemia. Improved. Continue to monitor. #. Dyslipidemia, on statin. #. 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 #. Systolic and diastolic dysfunction, secondary to ischemic cardiomyopathy. Ejection fraction (EF) of 15%. No sign of fluid overload at this moment. #. Peripheral vascular disease, status post left below-knee amputation (BKA), s tatus post multiple stent placement previously. #. Medical noncompliance. #. Deep vein thrombosis (DVT) prophylaxis, on heparin. VS,Fishbone, I+O VS, Fishbone, I+O Laboratory Tests 10/28/18 06:28 Red Blood Count 4.66, Mean Corpuscular Volume 78.3 L, Mean Corpuscular Hemoglobin 24.2 L, Mean Corpuscular Hemoglobin Concent 31.0 L, Red Cell Distribution Width 23.7 H, Neutrophils (%) (Auto) 81.2 H, Lymphocytes (%) (Auto) 7.8 L, Monocytes (%) (Auto) 10.6 H, Eosinophils (%) (Auto) 0.0, Basophils (%) (Auto) 0.0, Neutrophils # (Auto) 6.7, Lymphocytes # (Auto) 0.6 L, Monocytes # (Auto) 0.9 H, Eosinophils # (Auto) 0.0, Basophils # (Auto) 0.0, Calcium Level 7.1 L, Aspartate Amino Transf (AST/SGOT) 35, Alanine Aminotransferase (ALT/SGPT) 60, Alkaline Phosphatase 409 H, Total Bilirubin 0.4, Total Protein 6.2 L, Albumin 2.2 L Vital Signs Date Time Temp Pulse Resp B/P (MAP) Pulse Ox O2 Delivery O2 Flow Rate FiO2 01/28/18 16:47 18 01/28/18 14:00 97.1 67 160/60 (93) 98 Room Air 01/25/18 17:50 2 I&O- Last 24 Hours up to 6 AM 01/28/18 06:00 Intake Total 1295 ml Output Total 4500 ml Balance -3205 ml WILIAM JOHNS DO Jan 28, 2018 18:09
[2018-01-28] MEDS: ATORVASTATIN 20 MG TAB PO SCH (21:27)
[2018-01-28] MEDS: ANEXSIA, NORCO 7.5MG/325MG TABLET(HYDROCODONE/APAP) PO PRN (21:34)
[2018-01-28 22:00] VITALS: BP 153/74
[2018-01-29 06:00] VITALS: BP 146/68
[2018-01-29 06:12] LABS: BASO % 0.1 % (0.0-1.0); EOS # 0.1 10^3/uL (0.0-0.50); HEMATOCRIT 39.4 % (36.0-47.0); LYMPH # 1.5 10^3/uL (1.5-4.5); LYMPH % 15.7 % (24.0-44.0); MEAN CORPUSCULAR HGB CONC 30.5 g/dl (32.0-36.5); MONO % 10.9 % (0.0-5.0); NEUTROPHILS # 6.7 10^3/uL (1.8-7.7); NEUTROPHILS % 71.5 % (36.0-66.0); PLATELET COUNT, AUTOMATED 368 10^3/uL (150-450); RED BLOOD COUNT 4.99 10^6/uL (4.00-5.40); WHITE BLOOD COUNT 9.3 10^3/uL (4.0-10.0)
[2018-01-29 06:30] LABS: ALBUMIN 2.1 GM/DL (3.2-5.2); BILIRUBIN,TOTAL 0.4 MG/DL (0.2-1.0); CALCIUM LEVEL 6.9 MG/DL (8.5-10.1); CREATININE FOR GFR 3.27 MG/DL (0.55-1.30); GLOMERULAR FILTRATION RATE 15.6 (>51); MAGNESIUM LEVEL 1.8 MG/DL (1.8-2.4); POTASSIUM SERUM 4.8 MEQ/L (3.5-5.1)
[2018-01-29] MEDS: HEPARIN SOD (PORCINE) 5000 UNITS/ML VIAL SQ SCH ×3 (06:31→21:32)
[2018-01-29] MEDS: **hydrALAZINE** 10 MG TAB PO SCH ×3 (06:31→21:34)
[2018-01-29] MEDS: oxyCODONE 5MG TAB PO PRN (06:33)
[2018-01-29] MEDS: DAKIN'S 0.25% HALF-STRENGTH SOLN 480 ML TOP SCH ×3 (06:34→23:57)
[2018-01-29] MEDS: SENNA 8.6 MG TAB (SENOKOT) PO PRN (06:38)
[2018-01-29] MEDS: HumaLOG INSULIN (NovoLOG) PER UNIT SC SCH ×4 (08:48→21:33)
[2018-01-29] MEDS: METOPROLOL TART 50 MG TAB PO SCH ×2 (08:49→21:34)
[2018-01-29] MEDS: guaiFENesin ER 600 MG TAB PO SCH ×2 (08:49→21:33)
[2018-01-29] MEDS: SERTRALINE 100 MG TAB PO SCH (08:49)
[2018-01-29] MEDS: ASPIRIN 81 MG ENTERIC TAB PO SCH (08:49)
[2018-01-29] MEDS: ALPRAZolam 0.5 MG TAB PO SCH ×3 (08:49→21:33)
[2018-01-29] MEDS: LEVEMIR (INSULIN DETEMIR) 1 UNITS/0.01ML SC SCH ×2 (08:49→21:32)
[2018-01-29] MEDS: CLOPIDOGREL 75 MG TAB PO SCH (08:50)
[2018-01-29] MEDS: predniSONE 10 MG TAB PO SCH (08:50)
[2018-01-29] MEDS: CANDESARTAN 4MG TABLET PO SCH (08:50)
[2018-01-29] MEDS: FAMOTIDINE 20 MG TAB PO SCH (08:51)
[2018-01-29] MEDS: NYSTATIN 100,000 UNITS/GM TOPICAL PWD 15 GM TOP SCH ×2 (08:51→21:36)
[2018-01-29] MEDS: AZITHROMYCIN 250 MG TAB PO SCH (08:51)
[2018-01-29] MEDS: FLUTICASONE PROP 0.05% NASAL SPRAY 16 GM (FLONASE) SCH ×2 (08:52→21:35)
--- NOTE | 2018-01-29 09:13 | IPN ---
DATE OF SERVICE: 01/28/2018 SUBJECTIVE: Patient was seen and examined at the bedside today morning. She is awake and alert. She does report some cough, which is slightly worse today as compared with yesterday. She was dialyzed yesterday. She tolerated the hemodialysis procedure well. OBJECTIVE: VITAL SIGNS: Temperature 96.9 degrees Fahrenheit, blood pressure 168/80, pulse is 64, respiratory rate of 18, saturating 96% on room air. INTAKE AND OUTPUT: Ultrafiltration with hemodialysis was 4.5 liters yesterday. Weight on the bed scale is not available. PHYSICAL EXAMINATION: GENERAL: Patient is awake, alert, oriented times three, laying in bed. No apparent distress. HEAD AND NECK: Extraocular muscles intact. Pupils equally round and reactive to light. Mucous membranes are moist. Neck is supple. She has right internal jugular (IJ) tunneled hemodialysis catheter. CARDIOVASCULAR: S1, S2, regular rate. Trace edema of the right lower extremity. RESPIRATORY: She has mild expiratory rhonchi at the right base and right mid lung zone and mild expiratory rhonchi in the left base. ABDOMEN: Soft. Positive bowel sounds. Nontender. No organomegaly. MUSCULOSKELETAL: She has a dressing on the right foot transmetatarsal amputation (TMA) site, and she has left below-knee amputation. CENTRAL NERVOUS SYSTEM: No focal deficit. Power is 5/5 in all extremities. AV ACCESS: Right upper AV fistula with thrill and bruit, but not ready for use at this point. LABORATORY REVIEW: CBC showed a WBC 8.2, hemoglobin is 11.3, platelets are 322. BMP showed sodium 134, potassium 4.9, chloride 100, bicarbonate 22, BUN 48, creatinine is 2.8, glucose 433, calcium is 7.1, albumin 2.2. CURRENT INPATIENT MEDICATIONS: The patient's medications were all reviewed by me. Solu-Medrol was stopped and she is currently on prednisone 40 mg by mouth daily with a tapering dose. Oral vancomycin has been stopped. She is also on azithromycin 500 mg by mouth daily. ASSESSMENT AND PLAN: 1. End-stage renal disease on hemodialysis. Patient was dialyzed yesterday according to her Monday, , Monday schedule. 4.5 liters of fluid was removed. Volume status is optimal. 2. Hyperkalemia. Potassium level is significantly better today. Her candesartan dose was also decreased to 2 mg daily, which helped improve her hyperkalemia. 3. Chronic combined systolic and diastolic congestive heart failure. Volume status is optimized with dialysis. 4.5 liters of fluid was removed. Continue current dose of metoprolol and candesartan. 4. Acute chronic obstructive pulmonary disease (COPD) exacerbation. IV Solu-Medrol has been stopped. She is currently on a tapering dose of prednisone. She is also on azithromycin. Wheezing is improving. 5. C. difficile colitis. Oral vancomycin has been stopped. Her diarrhea has improved. 6. Infected right foot transmetatarsal amputation site. She is currently on IV vancomycin. Wound debridement was done on 01/25/2018. 7. Diabetes mellitus, type 2, insulin dependent. Patient was having high glucose levels because of IV Solu-Medrol. She has been changed to oral prednisone. Insulin sliding scale to be continued for now. Continue Levemir 30 units subcu twice a day.
[2018-01-29 14:00] VITALS: BP 120/70
--- NOTE | 2018-01-29 14:23 | IPNPDOC ---
Text Note Date of Service The patient was seen on 01/29/18. NOTE SUBJECTIVE: The patient is seen and examined in the room today. Patient refused to be seen by PT because she is not feeling well. She will consider PT tomorrow if she is feeling better. Patient feels her wheezing is improving. Patient states her stools remain formed. Denies fever or chill. OBJECTIVE: VITAL SIGNS: Listed below. GENERAL: No sign of acute distress, alert and oriented times three. HEENT: Normocephalic, atraumatic. Extraocular motor grossly intact. CARDIOVASCULAR: Positive S1, S2, regular rate. LUNGS: Wheezes in bilateral lungs. No significant crackle. ABDOMEN: Soft, nontender, nondistended. Bowel sounds present. EXTREMITIES: Left below-knee amputation. Right lower extremity wrapped with a dressing. There is some discomfort to palpation. LABORATORY DATA: Listed below. ASSESSMENT AND PLAN: #. Right foot metatarsal amputation with ulcerations. - Wound culture from 10/29/2017 grew Enterococcus faecalis, Staphylococcus aureus, Corynebacteria. On IV vancomycin with dialysis. - Dr. Stern is consulted. S/P wound dbridements. - Patient has been refusing physical therapy. #. End-stage renal disease, on hemodialysis. We appreciate nephrology's assi stance. Dialysis is on Monday, and Monday. #. Clostridium (C) difficile colitis. - S/P oral vancomycin treatment. The patient's stool is formed. # COPD exacerbation - Adjusting steroid as needed. On azithromycin. # Elevated liver function test. - Medications reviewed. Patient refused liver ultrasound. Liver function is improving. #. Insulin-dependent diabetes - Due to COPD exacerbation, patient is on steroid taper. Glucose has been very uncontrolled. On Levemir. On sliding scale. On consistent-carbohydrate diet. #. Hypertension. The patient is on metoprolol. #. Hypomagnesemia. Continue to monitor. Supplement as needed. #. Hyperkalemia. Improved. Continue to monitor. #. Dyslipidemia, on statin. #. 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 #. Systolic and diastolic dysfunction, secondary to ischemic cardiomyopathy. Ejection fraction (EF) of 15%. Fluid management through dialysis. #. Peripheral vascular disease, status post left below-knee amputation (BKA), status post multiple stent placement previously. #. Medical noncompliance. #. Deep vein thrombosis (DVT) prophylaxis, on heparin. VS,Fishbone, I+O VS, Fishbone, I+O Laboratory Tests 01/29/18 05:48 Red Blood Count 4.99, Mean Corpuscular Volume 79.0 L, Mean Corpuscular Hemoglobin 24.0 L, Mean Corpuscular Hemoglobin Concent 30.5 L, Red Cell Distribution Width 23.5 H, Neutrophils (%) (Auto) 71.5 H, Lymphocytes (%) (Auto) 15.7 L, Monocytes (%) (Auto) 10.9 H, Eosinophils (%) (Auto) 1.0, Basophils (%) (Auto) 0.1, Neutrophils # (Auto) 6.7, Lymphocytes # (Auto) 1.5, Monocytes # (Au to) 1.0 H, Eosinophils # (Auto) 0.1, Basophils # (Auto) 0.0, Calcium Level 6.9 L, Aspartate Amino Transf (AST/SGOT) 47 H, Alanine Aminotransferase (ALT/SGPT) 68, Alkaline Phosphatase 396 H, Total Bilirubin 0.4, Total Protein 6.0 L, Albumin 2.1 L Vital Signs Date Time Temp Pulse Resp B/P (MAP) Pulse Ox O2 Delivery O2 Flow Rate FiO2 01/29/18 14:00 98.8 74 17 120/70 (87) 99 Room Air 01/25/18 17:50 2 I&O- Last 24 Hours up to 6 AM 01/29/18 05:59 Intake Total 930 ml Output Total 0 ml Balance 930 ml WILIAM JOHNS DO Jan 29, 2018 14:23
[2018-01-29] MEDS: **VANCO AFTER HD** MISC XX SCH (15:29)
[2018-01-29] MEDS ORDERED: HEPARIN 1,000 UNITS/ML 10ML VIAL (FOR RADIOLOGY& DIALYSIS ONLY) IV ONE (15:45)
[2018-01-29] MEDS ORDERED: HEPARIN 1,000 UNITS/ML 10ML VIAL (FOR RADIOLOGY& DIALYSIS ONLY) XX ONE (15:45)
--- NOTE | 2018-01-29 16:57 | IPN ---
DATE: 01/29/2018 Mrs. Ibarra is seen this morning on her bedside. She has been admitted with infected right foot wound. She has known history of end-stage renal disease and noncompliance with dietary and fluid restriction. She is grossly volume overloaded with generalized edema and shortness of breath. She has no fever or chills at present. She did have a debridement done of her right foot wound and is currently on azithromycin and vancomycin. PHYSICAL EXAMINATION: Temperature is 97.9 degrees Fahrenheit, heart rate 66 per minute and respiratory rate 18 per minute. Blood pressure 146/68 mmHg and oxygen saturation 94% on room air. Her head is atraumatic. She has facial edema present, but there is no oral thrush or ulcers. Pupils are equal and reactive to light and sclerae is anicteric. Neck is supple and jugular venous distention (JVD) is elevated about 8-9 cm above sternal angle. Lungs have diminished breath sounds at bases with bibasilar rales. Heart sounds are regular and without a pericardial friction rub. Abdomen is soft and nontender and edema of the abdominal wall is present. On the back she has at least 2+ sacral edema. Extremities have no cyanosis or clubbing. The right arm arteriovenous (AV) fistula is patent but not quite ready for use. On the lower extremities, she has massive edema up to her waist. Right foot stump is in the dressing. Neurologically she is awake, alert and oriented times three. Today's labs show WBC count 9.3, hemoglobin 12.0 and hematocrit 39.4. Sodium 137, potassium 4.8, CO2 21, BUN 61 and creatinine 3.27. Glucose 130. A random vancomycin level was 22.2 on 01/27/2018. PROBLEMS: 1. End-stage renal disease. The patient is regularly dialyzed on Monday, and Monday schedule. She was last dialyzed on Monday. Her regular dialysis will be scheduled for tomorrow. 2. Generalized hypervolemia and shortness of breath. She is grossly volume overloaded due to prior noncompliance with fluid restriction and hemodialysis. We are going to try to have an extra session of ultrafiltration today and will try to remove about 3-4 liters of fluid as tolerated. We will also remove further fluid tomorrow with dialysis. The patient is being advised to follow fluid restriction of 1500 ML per day. 3. Hyperglycemia. Her blood sugar is better today and she remains on insulin coverage. The patient understands that she needs to follow her dietary restrictions. 4. Right foot ulcer with chronic infection. The patient remains on azithromycin and vancomycin and is currently afebrile. 5. Clostridium (C) difficile colitis. The patient has history of pseudomembranous colitis previously. She is currently on oral vancomycin which should be continued. 6. Hypertension. Blood pressure is reasonably well-controlled on current antihypertensive medications and it is likely to improve once her volume status is corrected.
[2018-01-29] MEDS: ATORVASTATIN 20 MG TAB PO SCH (21:33)
[2018-01-29] MEDS: ANEXSIA, NORCO 7.5MG/325MG TABLET(HYDROCODONE/APAP) PO PRN (21:56)
[2018-01-29 22:00] VITALS: BP 148/66
[2018-01-30] MEDS: HEPARIN SOD (PORCINE) 5000 UNITS/ML VIAL SQ SCH ×3 (05:26→22:00)
[2018-01-30] MEDS: oxyCODONE 5MG TAB PO PRN ×2 (05:26→22:15)
[2018-01-30] MEDS: **hydrALAZINE** 10 MG TAB PO SCH ×3 (05:28→22:11)
[2018-01-30] MEDS: DAKIN'S 0.25% HALF-STRENGTH SOLN 480 ML TOP SCH ×3 (05:29→22:17)
[2018-01-30 06:00] VITALS: BP 146/72
[2018-01-30] MEDS: ALPRAZolam 0.5 MG TAB PO SCH ×3 (06:49→22:12)
[2018-01-30] MEDS: GLUCOSE 4 GM CHEW TABLET PO PRN ×2 (06:49→14:15)
[2018-01-30] MEDS: predniSONE 10 MG TAB PO SCH (06:50)
[2018-01-30] MEDS: FAMOTIDINE 20 MG TAB PO SCH (06:50)
[2018-01-30] MEDS: CANDESARTAN 4MG TABLET PO SCH (06:51)
[2018-01-30] MEDS: SERTRALINE 100 MG TAB PO SCH (06:51)
[2018-01-30] MEDS: guaiFENesin ER 600 MG TAB PO SCH ×2 (06:51→22:09)
[2018-01-30] MEDS: AZITHROMYCIN 250 MG TAB PO SCH (06:52)
[2018-01-30] MEDS: CLOPIDOGREL 75 MG TAB PO SCH (06:52)
[2018-01-30] MEDS: ASPIRIN 81 MG ENTERIC TAB PO SCH (06:52)
[2018-01-30] MEDS: METOPROLOL TART 50 MG TAB PO SCH ×2 (06:53→22:12)
[2018-01-30] MEDS: FLUTICASONE PROP 0.05% NASAL SPRAY 16 GM (FLONASE) SCH ×2 (06:53→22:13)
[2018-01-30] MEDS: HumaLOG INSULIN (NovoLOG) PER UNIT SC SCH ×4 (07:30→21:00)
[2018-01-30] MEDS: LEVEMIR (INSULIN DETEMIR) 1 UNITS/0.01ML SC SCH ×2 (08:56→22:12)
[2018-01-30] MEDS: NYSTATIN 100,000 UNITS/GM TOPICAL PWD 15 GM TOP SCH ×2 (09:00→22:14)
[2018-01-30 09:19] LABS: CALCIUM LEVEL 7.1 MG/DL (8.5-10.1); CREATININE FOR GFR 3.87 MG/DL (0.55-1.30); GLOMERULAR FILTRATION RATE 12.8 (>51); POTASSIUM SERUM 5.6 MEQ/L (3.5-5.1)
[2018-01-30 09:43] LABS: BASO % 0.3 % (0.0-1.0); EOS # 0.1 10^3/uL (0.0-0.50); EOS % 1.4 % (0.0-3.0); HEMATOCRIT 38.1 % (36.0-47.0); HEMOGLOBIN 11.4 g/dl (12.0-15.5); LYMPH # 1.1 10^3/uL (1.5-4.5); LYMPH % 12.2 % (24.0-44.0); MEAN CORPUSCULAR HEMOGLOBIN 24.4 pg (27.0-33.0); MEAN CORPUSCULAR HGB CONC 29.9 g/dl (32.0-36.5); MEAN CORPUSCULAR VOLUME 81.6 fl (80.0-96.0); MONO # 0.6 10^3/uL (0.0-0.8); MONO % 7.4 % (0.0-5.0); NEUTROPHILS # 6.7 10^3/uL (1.8-7.7); NEUTROPHILS % 77.1 % (36.0-66.0); PLATELET COUNT, AUTOMATED 363 10^3/uL (150-450); RED BLOOD COUNT 4.67 10^6/uL (4.00-5.40); WHITE BLOOD COUNT 8.7 10^3/uL (4.0-10.0)
[2018-01-30] MEDS ORDERED: HEPARIN 1,000 UNITS/ML 10ML VIAL (FOR RADIOLOGY& DIALYSIS ONLY) XX ONE (09:45)
[2018-01-30] MEDS ORDERED: HEPARIN 1,000 UNITS/ML 10ML VIAL (FOR RADIOLOGY& DIALYSIS ONLY) IV ONE (09:45)
--- NOTE | 2018-01-30 11:12 | IPNPDOC ---
Date Seen The patient was seen on 01/30/18. Progress Note SUBJECTIVE:Patient was seen at dialysis today. She c/o pain in her right foot. She states that her sons have not been of any help to her, and she still owes taxes on her house, and has until April to come up with a way to pay for it. She is still hopeful that her son will step up and place a ramp in her home, and is requesting an electronic wheelchair. She c/o loose stools without abd pain, fever, nausea or vomiting, but completed treatment for cdiff. OBJECTIVE: VITAL SIGNS: Listed below. GENERAL: No sign of acute distress, alert and oriented times three. HEENT: Normocephalic, atraumatic. Extraocular motor grossly intact. CARDIOVASCULAR: Positive S1, S2, regular rate. LUNGS: Wheezes in bilateral lungs. No significant crackle. ABDOMEN: Soft, nontender, nondistended. Bowel sounds present. EXTREMITIES: Left below-knee amputation. Right lower extremity wrapped with a dressing. There is some discomfort to palpation. LABORATORY DATA: Listed below. ASSESSMENT AND PLAN:Ms. Ibarra is a 57 y/o female with past medical history of DM2, CAD s/p stenting, PVD s/p left BKA, COPD, HTN and ESRD on HD T,R,Sa. non-compliant with dialysis who presents to the ED with complaints of SOB for the past two days, diarrhea and nausea. The patient states that she went to her dialysis session last Monday and the following day woke up with profuse diarrhea and vomiting of bile, she did have a fever of 103.0. This is not unusual for her, she states she always has diarrhea and vomiting the day after a dialysis treatment. Denies recent travel or sick contacts, no muscle aches, chills or night sweats. However, she was so weak after this particular dialysis session a week ago that she could not make her follow or Monday dialysis appts., effectively missing two dialysis days. She states she is more SOB the past two days, non-exertional, and worse with laying flat, she describes some vague, sharp right breast pain that radiates to her mid sternum that has bothered her for two days, she states that the pain does not feel like her past heart attack, it apparently is worsened with inspiration and external palpation of the area of her right breast and sternum. No history of trauma. She was recently given a 10 day course ( which she states she completed) of antibiotic ( she thinks erythromycin but is unsure) by her PCP for a pus filled cyst located on the back of her scalp, apparently she thought it was red and swollen and she lanced it herself at home and states a lot of pus was exuded. PCP gave her abx for this. She states she saw vascular surgery yesterday outpatient and they wanted to bring her to the OR for debridement tomorrow of the right lower extremity/toes which she states have recently been more painful and red, she has history of toe amputations on this foot. In regards to her stool, she states there was no blood except a couple days last week she thought it looked black, she attributes this to "little orange pills they give me at dialysis", although this is the first time she states she noted black diarrhea. The diarrhea has continued to this morning and is now green/yellow and causes some vague abdominal discomfort with nausea, vomiting has subsided. She figured she should come in due to it not resolving for almost one week. Right foot metatarsal amputation with ulcerations. - Wound culture from 10/29/2017 grew Enterococcus faecalis, Staphylococcus aureus, Corynebacteria. On IV vancomycin with dialysis. - Dr. Stern is consulted. S/P wound dbridements. - Patient has been refusing physical therapy. End-stage renal disease, on hemodialysis. We appreciate nephrology's assistance. Dialysis is on Monday, and Monday. Clostridium (C) difficile colitis. - S/P oral vancomycin treatment. The patient's stool is formed. COPD exacerbation - Adjusting steroid as needed. On azithromycin. Elevated liver function test. - Medications reviewed. Patient refused liver ultrasound. Liver function is improving. Insulin-dependent diabetes - Due to COPD exacerbation, patient is on steroid taper. Glucose has been very uncontrolled. On Levemir. On sliding scale. On consistent-carbohydrate diet. Hypertension. The patient is on metoprolol. Hypomagnesemia. Continue to monitor. Supplement as needed. Hyperkalemia. Improved. Continue to monitor. Dyslipidemia, on statin. 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 Systolic and diastolic dysfunction, secondary to ischemic cardiomyopathy. Ejection fraction (EF) of 15%. Fluid management through dialysis. Peripheral vascular disease, status post left below-knee amputation (BKA), status post multiple stent placement previously. Medical noncompliance. Deep vein thrombosis (DVT) prophylaxis, on heparin. VS, I&O, 24H, Fishbone Vital Signs/I&O Vital Signs Date Time Temp Pulse Resp B/P (MAP) Pulse Ox O2 Delivery O2 Flow Rate FiO2 01/29/18 22:26 14 01/29/18 22:00 97.5 66 148/66 (93) 96 Room Air 01/25/18 17:50 2 I&O- Last 24 Hours up to 6 AM 01/30/18 06:00 Intake Total 1620 ml Output Total 600 ml Balance 1020 ml Laboratory Data 24H LABS Laboratory Tests 2 01/29/18 05:48: Immature Granulocyte % (Auto) 0.8, White Blood Count 9.3, Red Blood Count 4.99, Hemoglobin 12.0, Hematocrit 39.4, Mean Corpuscular Volume 79.0L, Mean Corpuscular Hemoglobin 24.0L, Mean Corpuscular Hemoglobin Concent 30.5L, Red Cell Distribution Width 23.5H, Platelet Count 368, Neutrophils (%) (Auto) 71.5H, Lymphocytes (%) (Auto) 15.7L, Monocytes (%) (Auto) 10.9H, Eosinophils (%) (Auto) 1.0, Basophils (%) (Auto) 0.1, Neutrophils # (Auto) 6.7, Lymphocytes # (Auto) 1.5, Monocytes # (Auto) 1.0H, Eosinophils # (Auto) 0.1, Basophils # (Auto) 0.0, Nucleated Red Blood Cells % (auto) 0.0, Anion Gap 10, Glomerular Filtration Rate 15.6L, Blood Urea Nitrogen 61H, Creatinine 3.27H, Sodium Level 137, Potassium Level 4.8, Chloride Level 106, Carbon Dioxide Level 21, Calcium Level 6.9L, Aspartate Amino Transf (AST/SGOT) 47H, Alanine Aminotransferase (ALT/SGPT) 68, Alkaline Phosphatase 396H, Total Bilirubin 0.4, Total Protein 6.0L, Albumin 2.1L, Magnesium Level 1.8, Albumin/Globulin Ratio 0.54L 01/29/18 11:28: Bedside Glucose (Misc Panel) 129H 01/29/18 16:38: Bedside Glucose (Misc Panel) 139H 01/29/18 21:19: Bedside Glucose (Misc Panel) 320H CBC/BMP Laboratory Tests 01/29/18 05:48 Red Blood Count 4.99, Mean Corpuscular Volume 79.0 L, Mean Corpuscular Hemoglobin 24.0 L, Mean Corpuscular Hemoglobin Concent 30.5 L, Red Cell Distribution Width 23.5 H, Neutrophils (%) (Auto) 71.5 H, Lymphocytes (%) (Auto) 15.7 L, Monocytes (%) (Auto) 10.9 H, Eosinophils (%) (Auto) 1.0, Basophils (%) (Auto) 0.1, Neutrophils # (Auto) 6.7, Lymphocytes # (Auto) 1.5, Monocytes # (Auto) 1.0 H, Eosinophils # (Auto) 0.1, Basophils # (Auto) 0.0, Calcium Level 6.9 L, Aspartate Amino Transf (AST/SGOT) 47 H, Alanine Aminotransferase (ALT/SGPT) 68, Alkaline Phosphatase 396 H, Total Bilirubin 0.4, Total Protein 6.0 L, Albumin 2.1 L Microbiology Microbiology 01/29/18 Group A Streptococcus Screen ([facility]) - Final, Resulted 01/29/18 Group A Streptococcus Screen ([facility]), Resulted Pending 01/24/18 Respiratory Virus Panel (PCR) ([facility]) - Final, Complete DAISHA WEBB MD Jan 30, 2018 04:34
[2018-01-30] MEDS: VANCOMYCIN HCL 750 MG, VIAL MATE ADAPTER 1 EACH in D5W 250 ML IV SCH (12:16)
[2018-01-30 14:00] VITALS: BP 118/68
--- NOTE | 2018-01-30 14:55 | IPN ---
DATE OF VISIT: 01/30/2018 Mrs. Ibarra is seen this morning during hemodialysis. She declined extra dialysis for ultrafiltration yesterday, which was offered due to hypervolemia. Patient has no peripheral IV access and she refused blood work this morning and also refused to get an IV line placed. Patient reports diarrhea today and still has significant generalized edema but denies any nausea or vomiting. On physical exam, temperature 97 degrees Fahrenheit, heart rate 81 per minute and respiratory rate 18 per minute. Blood pressure 146/72 mmHg, oxygen saturation 98% on room air. Mild facial edema is noted. Neck veins are distended about 8-9 cm above sternal angle. There is no oral thrush or ulcers. Heart sounds are regular and lungs with diminished breath sounds at bases. Abdomen soft and nontender. There is edema of abdominal wall and also edema on the back. Bowel sounds are present. Extremities have no cyanosis or clubbing. She has arteriovenous (AV) fistula in her right arm, which is not well developed. Lower extremity edema is at least 4+ up to her waist. Neurologically, she is awake and at her baseline mentation. Her labs were drawn during dialysis, which have already resulted. WBC count is 8.7, hemoglobin 11.4 and hematocrit 38.1. Sodium 133, potassium 5.6, CO2 16, BUN 81 and creatinine 3.87. Random vancomycin level is 19.9. PROBLEMS: 1. End-stage renal disease. Patient is being dialyzed today and she is tolerating her dialysis treatment well. 2. Generalized edema and hypervolemia. She has generalized edema up to her waist. We are trying to remove 4 liters of fluid today. Patient understands that she is going to be offered for extra dialysis ultrafiltration tomorrow and she is willing to go for it. She should follow fluid restriction of 1500 mL per day. 3. Hyperkalemia related to dietary noncompliance. This will be corrected with dialysis today. Her electrolytes will be checked again tomorrow during dialysis. 4. Infected wound on her foot. She has been on vancomycin and will receive vancomycin 1 gram after dialysis. Her vancomycin level is therapeutic. 5. Metabolic acidosis related to end-stage renal disease and diarrhea. This will correct with dialysis today. 6. Diarrhea. Etiology is uncertain. I will defer to hospitalist service for further investigations.
[2018-01-30] MEDS: **VANCO AFTER HD** MISC XX SCH (16:00)
[2018-01-30 22:00] VITALS: BP 139/81
[2018-01-30] MEDS: ATORVASTATIN 20 MG TAB PO SCH (22:09)
[2018-01-31 06:00] VITALS: BP 154/74
[2018-01-31] MEDS: HEPARIN SOD (PORCINE) 5000 UNITS/ML VIAL SQ SCH ×3 (06:00→21:17)
[2018-01-31] MEDS: **hydrALAZINE** 10 MG TAB PO SCH ×3 (06:35→21:23)
[2018-01-31] MEDS: DAKIN'S 0.25% HALF-STRENGTH SOLN 480 ML TOP SCH ×3 (06:36→21:18)
[2018-01-31] MEDS: oxyCODONE 5MG TAB PO PRN ×2 (06:36→21:19)
[2018-01-31] MEDS: HumaLOG INSULIN (NovoLOG) PER UNIT SC SCH ×4 (07:30→21:21)
--- NOTE | 2018-01-31 08:30 | IPNPDOC ---
Date Seen The patient was seen on 01/31/18. Progress Note SUBJECTIVE:Patient c/o pain in her right foot despite 6am oxycodone. Pain clinic has been consulted. She says Dr. Watkins continues to manage her foot and it is less malodorous than before. She states that her sons have not been of any help to her, and she still owes taxes on her house, and has until April to come up with a way to pay for it. She is still hopeful that her son will step up and place a ramp in her home, and is requesting an electronic wheelchair. She c/o loose stools with out abd pain, fever, nausea or vomiting, but completed treatment for cdiff. OBJECTIVE: VITAL SIGNS: Listed below. GENERAL: No sign of acute distress, alert and oriented times three. HEENT: Normocephalic, atraumatic. Extraocular motor grossly intact. CARDIOVASCULAR: Positive S1, S2, regular rate. LUNGS: Wheezes in bilateral lungs. No significant crackle. ABDOMEN: Soft, nontender, nondistended. Bowel sounds present. EXTREMITIES: Left below-knee amputation. Right lower extremity wrapped with a dressing. There is some discomfort to palpation. LABORATORY DATA: Listed below. ASSESSMENT AND PLAN:Ms. Ibarra is a 57 y/o female with past medical history of DM2, CAD s/p stenting, PVD s/p left BKA, COPD, HTN and ESRD on HD T,R,Sa. non-compliant with dialysis who presents to the ED with complaints of SOB for the past two days, diarrhea and nausea. The patient states that she went to her dialysis session last Monday and the following day woke up with profuse diarrhea and vomiting of bile, she did have a fever of 103.0. This is not unusual for her, she states she always has diarrhea and vomiting the day after a dialysis treatment. Denies recent travel or sick contacts, no muscle aches, chills or night sweats. However, she was so weak after this particular dialysis session a week ago that she could not make her follow or Monday dialysis appts., effectively missing two dialysis days. She states she is more SOB the past two days, non-exertional, and worse with laying flat, she describes some vague, sharp right breast pain that radiates to her mid sternum that has bothered her for two days, she states that the pain does not feel like her past heart attack, it apparently is worsened with inspiration and external palpation of the area of her right breast and sternum. No history of trauma. She was recently given a 10 day course ( which she states she completed) of antibiotic ( she thinks erythromycin but is unsure) by her PCP for a pus filled cyst located on the back of her scalp, apparently she thought it was red and swollen and she lanced it herself at home and states a lot of pus was exuded. PCP gave her abx for this. She states she saw vascular surgery yesterday outpatient and they wanted to bring her to the OR for debridement tomorrow of the right lower extremity/toes which she states have recently been more painful and red, she has history of toe amputations on this foot. In regards to her stool, she states there was no blood except a couple days last week she thought it looked black, she attributes this to "little orange pills they give me at dialysis", although this is the first time she states she noted black diarrhea. The diarrhea has continued to this morning and is now green/yellow and causes some vague abdominal discomfort with nausea, vomiting has subsided. She figured she should come in due to it not resolving for almost one week. Right foot metatarsal amputation with ulcerations. - Wound culture from 10/29/2017 grew Enterococcus faecalis, Staphylococcus aureus, Corynebacteria. On IV vancomycin with dialysis. - Dr. Stern is consulted. S/P wound dbridements. - Patient has been refusing physical therapy. End-stage renal disease, on hemodialysis. We appreciate nephrology's assistance. Dialysis is on Monday, and Monday. Clostridium (C) difficile colitis. - S/P oral vancomycin treatment. The patient's stool is formed. COPD exacerbation - Adjusting steroid as needed. On azithromycin. Elevated liver function test. - Medications reviewed. Patient refused liver ultrasound. Liver function is improving. Insulin-dependent diabetes - Due to COPD exacerbation, patient is on steroid taper. Glucose has been very uncontrolled. On Levemir. On sliding scale. On consistent-carbohydrate diet. Hypertension. The patient is on metoprolol. Hypomagnesemia. Continue to monitor. Supplement as needed. Hyperkalemia. Improved. Continue to monitor. Dyslipidemia, on statin. Coronary artery disease, status post percutaneous coronary angioplasty ([employer]), on aspirin, Lipitor, Plavix. Systolic and diastolic dysfunction, secondary to ischemic cardiomyopathy. Ejection fraction (EF) of 15%. Fluid management through dialysis. Peripheral vascular disease, status post left below-knee amputation (BKA), status post multiple stent placement previously. Medical noncompliance. Deep vein thrombosis (DVT) prophylaxis, on heparin. VS, I&O, 24H, Fishbone Vital Signs/I&O Vital Signs Date Time Temp Pulse Resp B/P (MAP) Pulse Ox O2 Delivery O2 Flow Rate FiO2 01/30/18 22:45 16 Room Air 01/30/18 22:12 71 01/30/18 22:11 139/81 01/30/18 22:00 97.6 98 01/25/18 17:50 2 I&O- Last 24 Hours up to 6 AM 01/31/18 06:00 Intake Total 900 ml Output Total 4200 ml Balance -3300 ml Laboratory Data 24H LABS Laboratory Tests 2 01/30/18 06:29: Bedside Glucose (Misc Panel) 61L 01/30/18 08:35: Immature Granulocyte % (Auto) 1.6, White Blood Count 8.7, Red Blood Count 4.67, Hemoglobin 11.4L, Hematocrit 38.1, Mean Corpuscular Volume 81.6, Mean Corpuscular Hemoglobin 24.4L, Mean Corpuscular Hemoglobin Concent 29.9L, Red Cell Distribution Width 23.6H, Platelet Count 363, Neutrophils (%) (Auto) 77.1H, Lymphocytes (%) (Auto) 12.2L, Monocytes (%) (Auto) 7.4H, Eosinophils (%) (Auto) 1.4, Basophils (%) (Auto) 0.3, Neutrophils # (Auto) 6.7, Lymphocytes # (Auto) 1.1L, Monocytes # (Auto) 0.6, Eosinophils # (Auto) 0.1, Basophils # (Auto) 0.0, Nucleated Red Blood Cells % (auto) 0.0, Random Vancomycin Level 19.9 01/30/18 08:39: Anion Gap 11, Glomerular Filtration Rate 12.8L, Blood Urea Nitrogen 81H, Creatinine 3.87H, Sodium Level 133L, Potassium Level 5.6H, Chloride Level 106, Carbon Dioxide Level 16L, Calcium Level 7.1L 01/30/18 14:01: Bedside Glucose (Misc Panel) 49L 01/30/18 14:09: Bedside Glucose (Misc Panel) 43L 01/30/18 14:18: Bedside Glucose Confirm (Misc) 46 01/30/18 14:44: Bedside Glucose (Misc Panel) 68L 01/30/18 15:23: Bedside Glucose (Misc Panel) 103 01/30/18 17:05: Bedside Glucose (Misc Panel) 146H 01/30/18 21:01: Bedside Glucose (Misc Panel) 202H CBC/BMP Laboratory Tests 01/30/18 08:35 Red Blood Count 4.67, Mean Corpuscular Volume 81.6, Mean Corpuscular Hemoglobin 24.4 L, Mean Corpuscular Hemoglobin Concent 29.9 L, Red Cell Distribution Width 23.6 H, Neutrophils (%) (Auto) 77.1 H, Lymphocytes (%) (Auto) 12.2 L, Monocytes (%) (Auto) 7.4 H, Eosinophils (%) (Auto) 1.4, Basophils (%) (Auto) 0.3, Neutrophils # (Auto) 6.7, Lymphocytes # (Auto) 1.1 L, Monocytes # (Auto) 0.6, Eosinophils # (Auto) 0.1, Basophils # (Auto) 0.0 01/30/18 08:39 Calcium Level 7.1 L Microbiology Microbiology 01/29/18 Group A Streptococcus Screen ([facility]) - Final, Complete 01/29/18 Group A Streptococcus Screen ([facility]) - Final, Complete 01/24/18 Respiratory Virus Panel (PCR) ([facility]) - Final, Complete DAISHA WEBB MD Jan 31, 2018 05:20
[2018-01-31] MEDS ORDERED: oxyCODONE 5MG TAB PO ONE (08:45)
[2018-01-31] MEDS: guaiFENesin ER 600 MG TAB PO SCH ×2 (10:22→21:17)
[2018-01-31] MEDS: CLOPIDOGREL 75 MG TAB PO SCH (10:22)
[2018-01-31] MEDS: ASPIRIN 81 MG ENTERIC TAB PO SCH (10:22)
[2018-01-31] MEDS: predniSONE 10 MG TAB PO SCH (10:22)
[2018-01-31] MEDS: METOPROLOL TART 50 MG TAB PO SCH ×2 (10:22→21:23)
[2018-01-31] MEDS: AZITHROMYCIN 250 MG TAB PO SCH (10:23)
[2018-01-31] MEDS: CANDESARTAN 4MG TABLET PO SCH (10:23)
[2018-01-31] MEDS: FAMOTIDINE 20 MG TAB PO SCH (10:23)
[2018-01-31] MEDS: ALPRAZolam 0.5 MG TAB PO SCH ×3 (10:23→21:18)
[2018-01-31] MEDS: FLUTICASONE PROP 0.05% NASAL SPRAY 16 GM (FLONASE) SCH ×2 (10:25→21:20)
[2018-01-31] MEDS: LEVEMIR (INSULIN DETEMIR) 1 UNITS/0.01ML SC SCH ×2 (10:25→21:20)
[2018-01-31] MEDS: NYSTATIN 100,000 UNITS/GM TOPICAL PWD 15 GM TOP SCH ×2 (10:26→21:00)
[2018-01-31] MEDS: SERTRALINE 100 MG TAB PO SCH (10:27)
[2018-01-31] MEDS ORDERED: FLUCONAZOLE 100 MG TAB PO ONE (10:45)
[2018-01-31] MEDS ORDERED: HEPARIN 1,000 UNITS/ML 10ML VIAL (FOR RADIOLOGY& DIALYSIS ONLY) IV ONE (11:30)
[2018-01-31] MEDS ORDERED: HEPARIN 1,000 UNITS/ML 10ML VIAL (FOR RADIOLOGY& DIALYSIS ONLY) XX ONE (11:30)
[2018-01-31 16:00] VITALS: BP 140/72
[2018-01-31] MEDS: MICONAZOLE TOPICAL 2% CREAM 15GM TOP SCH (17:12)
[2018-01-31] MEDS: ATORVASTATIN 20 MG TAB PO SCH (21:17)
[2018-01-31 22:00] VITALS: BP 135/75
[2018-02-01 06:00] VITALS: BP 149/65
[2018-02-01] MEDS: GLUCOSE 4 GM CHEW TABLET PO PRN ×3 (06:37→08:06)
[2018-02-01] MEDS: DAKIN'S 0.25% HALF-STRENGTH SOLN 480 ML TOP SCH ×2 (06:38→14:00)
[2018-02-01] MEDS: FLUTICASONE PROP 0.05% NASAL SPRAY 16 GM (FLONASE) SCH ×2 (06:38→21:17)
[2018-02-01] MEDS: NYSTATIN 100,000 UNITS/GM TOPICAL PWD 15 GM TOP SCH ×2 (06:38→21:16)
[2018-02-01] MEDS: HEPARIN SOD (PORCINE) 5000 UNITS/ML VIAL SQ SCH ×2 (06:39→14:00)
[2018-02-01] MEDS: FAMOTIDINE 20 MG TAB PO SCH (06:39)
[2018-02-01] MEDS: predniSONE 10 MG TAB PO SCH (06:39)
[2018-02-01] MEDS: CANDESARTAN 4MG TABLET PO SCH (06:39)
[2018-02-01] MEDS: guaiFENesin ER 600 MG TAB PO SCH ×2 (06:39→21:10)
[2018-02-01] MEDS: SERTRALINE 100 MG TAB PO SCH (06:40)
[2018-02-01] MEDS: ASPIRIN 81 MG ENTERIC TAB PO SCH (06:40)
[2018-02-01] MEDS: ALPRAZolam 0.5 MG TAB PO SCH ×3 (06:40→21:15)
[2018-02-01] MEDS: CLOPIDOGREL 75 MG TAB PO SCH (06:40)
[2018-02-01] MEDS: **hydrALAZINE** 10 MG TAB PO SCH ×2 (06:40→14:00)
[2018-02-01] MEDS: MICONAZOLE TOPICAL 2% CREAM 15GM TOP SCH (06:41)
[2018-02-01] MEDS: oxyCODONE 5MG TAB PO PRN (06:41)
[2018-02-01] MEDS: METOPROLOL TART 50 MG TAB PO SCH ×2 (06:41→21:11)
[2018-02-01] MEDS: HumaLOG INSULIN (NovoLOG) PER UNIT SC SCH ×4 (07:30→21:13)
--- NOTE | 2018-02-01 08:06 | IPNPDOC ---
Date Seen The patient was seen on 02/01/18. Progress Note SUBJECTIVE:Patient pulled her iv out last night and would not permit RN to place another peripheral iv. She was hypoglycemic 52 and despite hypoglycemic protocol and breakfast remains low. picc line and d5w ordered. OBJECTIVE: VITAL SIGNS: Listed below. GENERAL: No sign of acute distress, alert and oriented times three. HEENT: Normocephalic, atraumatic. Extraocular motor grossly intact. CARDIOVASCULAR: Positive S1, S2, regular rate. LUNGS: Wheezes in bilateral lungs. No significant crackle. ABDOMEN: Soft, nontender, nondistended. Bowel sounds present. EXTREMITIES: Left below-knee amputation. Right lower extremity wrapped with a dressing. There is some discomfort to palpation. LABORATORY DATA: Listed below. ASSESSMENT AND PLAN:Ms. Ibarra is a 57 y/o female with past medical history of DM2, CAD s/p stenting, PVD s/p left BKA, COPD, HTN and ESRD on HD T,R,Sa. non-compliant with dialysis who presents to the ED with complaints of SOB for the past two days, diarrhea and nausea. The patient states that she went to her dialysis session last Monday and the following day woke up with profuse diarrhea and vomiting of bile, she did have a fever of 103.0. This is not unusual for her, she states she always has diarrhea and vomiting the day after a dialysis treatment. Denies recent travel or sick contacts, no muscle aches, chills or night sweats. However, she was so weak after this particular dialysis session a week ago that she could not make her follow or Monday dialysis appts., effectively missing two dialysis days. She states she is more SOB the past two days, non-exertional, and worse with laying flat, she describes some vague, sharp right breast pain that radiates to her mid sternum that has bothered her for two days, she states that the pain does not feel like her past heart attack, it apparently is worsened with inspiration and external palpation of the area of her right breast and sternum. No history of trauma. She was recently given a 10 day course ( which she states she completed) of antibiotic ( she thinks erythromycin but is unsure) by her PCP for a pus filled cyst located on the back of her scalp, apparently she thought it was red and swollen and she lanced it herself at home and states a lot of pus was exuded. PCP gave her abx for this. She states she saw vascular surgery yesterday outpatient and they wanted to bring her to the OR for debridement tomorrow of the right lower extremity/toes which she states have recently been more painful and red, she has history of toe amputations on this foot. In regards to her stool, she states there was no blood except a couple days last week she thought it looked black, she attributes this to "little orange pills they give me at dialysis", although this is the first time she states she noted black diarrhea. The diarrhea has con tinued to this morning and is now green/yellow and causes some vague abdominal discomfort with nausea, vomiting has subsided. She figured she should come in due to it not resolving for almost one week. Hypoglycemia/ Insulin-dependent diabetes - Due to COPD exacerbation, patient is on steroid taper. Glucose has been very uncontrolled. hold Levemir. On sliding scale. On consistent-carbohydrate diet. picc line for d5w. No IV Access PICC line as pt refused to have peripheral IV by RN. Right foot metatarsal amputation with ulcerations. - Wound culture from 10/29/2017 grew Enterococcus faecalis, Staphylococcus aureus, Corynebacteria. On IV vancomycin with dialysis. - Dr. Stern is consulted. S/P wound dbridements. - Patient has been refusing physical therapy. End-stage renal disease, on hemodialysis. We appreciate nephrology's assistance. Dialysis is on Monday, and Monday. Clostridium (C) difficile colitis. - S/P oral vancomycin treatment. The patient's stool is formed. COPD exacerbation - Adjusting steroid as needed. On azithromycin. Elevated liver function test. - Medications reviewed. Patient refused liver ultrasound. Liver function is improving. Hypertension. The patient is on metoprolol. Hypomagnesemia. Continue to monitor. Supplement as needed. Hyperkalemia. Improved. Continue to monitor. Dyslipidemia, on statin. Coronary artery disease, status post percutaneous coronary angioplasty ([employer]), on aspirin, Lipitor, Plavix. Systolic and diastolic dysfunction, secondary to ischemic cardiomyopathy. Ejection fraction (EF) of 15%. Fluid management through dialysis. Peripheral vascular disease, status post left below-knee amputation (BKA), status post multiple stent placement previously. Medical noncompliance. Deep vein thrombosis (DVT) prophylaxis, on heparin. VS, I&O, 24H, Fishbone Vital Signs/I&O Vital Signs Date Time Temp Pulse Resp B/P (MAP) Pulse Ox O2 Delivery O2 Flow Rate FiO2 02/01/18 07:58 19 02/01/18 06:41 69 145/65 02/01/18 06:00 98.1 96 Room Air I&O- Last 24 Hours up to 6 AM 02/01/18 05:59 Intake Total 1540 ml Output Total 4000 ml Balance -2460 ml Laboratory Data 24H LABS Laboratory Tests 2 01/31/18 11:30: Bedside Glucose (Misc Panel) 138H 01/31/18 16:34: Bedside Glucose (Misc Panel) 112H 01/31/18 21:18: Bedside Glucose (Misc Panel) 270H 02/01/18 06:28: Bedside Glucose Confirm (Misc) 43 Microbiology Microbiology 01/29/18 Group A Streptococcus Screen ([facility]) - Final, Complete 01/29/18 Group A Streptococcus Screen ([facility]) - Final, Complete 01/24/18 Respiratory Virus Panel (PCR) ([facility]) - Final, Complete DAISHA WEBB MD Feb 01, 2018 08:06
[2018-02-01] MEDS ORDERED: D5W 1,000 ML IV ONE (08:15)
[2018-02-01] MEDS: LEVEMIR (INSULIN DETEMIR) 1 UNITS/0.01ML SC SCH ×2 (08:59→21:12)
[2018-02-01] MEDS ORDERED: HEPARIN 1,000 UNITS/ML 10ML VIAL (FOR RADIOLOGY& DIALYSIS ONLY) XX ONE (11:00)
[2018-02-01] MEDS ORDERED: HEPARIN 1,000 UNITS/ML 10ML VIAL (FOR RADIOLOGY& DIALYSIS ONLY) IV ONE (11:00)
[2018-02-01] MEDS ORDERED: ONDANSETRON 4 MG ORAL DISINTEGRATING TAB (Q0162 PER 1MG) PO ONE (12:00)
[2018-02-01] MEDS ORDERED: ONDANSETRON 4MG/2ML VIAL (J2405) IV ONE (12:00)
[2018-02-01] MEDS ORDERED: NORCO, ANEXSIA 5/325MG TABLET (HYDROcodone/ACETAMINOPHEN) PO ONE (12:00)
[2018-02-01 12:04] LABS: ALBUMIN 2.2 GM/DL (3.2-5.2); CALCIUM LEVEL 6.9 MG/DL (8.5-10.1); CREATININE FOR GFR 4.04 MG/DL (0.55-1.30); GLOMERULAR FILTRATION RATE 12.2 (>51); PHOSPHORUS LEVEL 6.8 MG/DL (2.5-4.9); POTASSIUM SERUM 5.3 MEQ/L (3.5-5.1)
--- NOTE | 2018-02-01 12:08 | IPNPDOC ---
Subjective Date Seen The patient was seen on 02/01/18. Subjective Chief Complaint/HPI Not feeling good, sleepy, stump pain. Reported hypoglycemia 40s this morning. Objective Physical Examination General Exam: Positive: Alert, Cooperative, Moderate Distress, Other (drowsy) Eye Exam: Positive: PERRLA, EOMI ENT Exam: Positive: Atraumatic, Other ENT (facial swelling) Neck Exam: Positive: Supple; Negative: JVD Chest Exam: Positive: Clear to auscultation, Normal air movement, Diminished (breath sounds aden); Negative: Rales, Rhonchi, Wheezing, Other Heart Exam: Positive: Rate Normal, Regular Rhythm, Normal S1, Normal S2; Negative: Gallops, Murmurs, Rubs, Other Abdomen Exam: Positive: Normal bowel sounds, Soft; Negative: Tenderness Extremity Exam: Positive: Edema, Tenderness, Other (LLE BKA, Right stump nonhealing wound covered with fatty tissue with some granulation, not much drainage , purple color change to fore plantar stable); Negative: Clubbing, Cyanosis Neuro Exam: Positive: Normal Speech, Strength at 5/5 X4 ext, Cranial Nerves 3- 12 NL Psych Exam: Positive: Anxiety, Oriented x 3 Assessment /Plan Assessment 1. Infected nonhealing wound of right stump s/p TMA, s/p debridement. 2. Insulin dependent DM with hypoglycemia FBS 40s this morning 3. ESRD on HD TThSa 4. COPD 5. Combined systolic and diastolic CHF Plan/VTE VTE Prophylaxis Ordered?: Yes Plan 1. Continue current regimen. 2. Wound vac to Rt stump wound using black foam, change MWF VS, I&O, 24H, Fishbone Vital Signs/I&O Vital Signs Date Time Temp Pulse Resp B/P (MAP) Pulse Ox O2 Delivery O2 Flow Rate FiO2 02/01/18 07:58 19 02/01/18 06:41 69 145/65 02/01/18 06:00 98.1 96 Room Air I&O- Last 24 Hours up to 6 AM 02/01/18 05:59 Intake Total 1540 ml Output Total 4000 ml Balance -2460 ml Laboratory Data 24H LABS Laboratory Tests 2 01/31/18 16:34: Bedside Glucose (Misc Panel) 112H 01/31/18 21:18: Bedside Glucose (Misc Panel) 270H 02/01/18 06:16: Bedside Glucose (Misc Panel) 41L 02/01/18 06:28: Bedside Glucose Confirm (Misc) 43 02/01/18 07:20: Bedside Glucose (Misc Panel) 55L 02/01/18 07:58: Bedside Glucose (Misc Panel) 45L 02/01/18 08:58: Bedside Glucose (Misc Panel) 79 CBC/BMP Microbiology Microbiology 01/29/18 Group A Streptococcus Screen ([facility]) - Final, Complete 01/29/18 Group A Streptococcus Screen ([facility]) - Final, Complete 01/24/18 Respiratory Virus Panel (PCR) ([facility]) - Final, Complete PADMINI FIGUEROA PA-C Feb 01, 2018 12:08
[2018-02-01 12:11] LABS: HEMATOCRIT 36.8 % (36.0-47.0); MEAN CORPUSCULAR HEMOGLOBIN 24.5 pg (27.0-33.0); MEAN CORPUSCULAR HGB CONC 29.9 g/dl (32.0-36.5); PLATELET COUNT, AUTOMATED 386 10^3/uL (150-450); RED BLOOD COUNT 4.49 10^6/uL (4.00-5.40); WHITE BLOOD COUNT 10.4 10^3/uL (4.0-10.0)
--- NOTE | 2018-02-01 13:08 | IPN ---
DATE OF VISIT: 02/01/2018 Ms. Ibarra is seen this morning on her bedside. She underwent ultrafiltration yesterday and we were able to remove 4 liters of fluid. She still has significant volume overload with generalized edema. She denies any nausea, vomiting, dyspnea or chest pain. Today is her regular dialysis day and she will be dialyzed this afternoon. On physical exam, the patient is awake and alert at her baseline mentation. Temperature 98.1 degrees Fahrenheit, heart rate 70 per minute and respiratory rate 20 per minute. Blood pressure 145/65 mmHg and oxygen saturation 96% on room air. Head is atraumatic. Neck is supple and jugular venous distention (JVD) is still elevated. There is no oral thrush or ulcers. Heart sounds are regular and without pericardial friction rub. Lungs with slightly diminished breath sounds at bases. Abdomen: Soft and nontender and bowel sounds are present. Extremities have no cyanosis or clubbing. Lower extremity edema is still significant and extends up to waist. Neurologically, she is at her baseline mentation. Her right foot stump is wrapped in a dressing. PROBLEMS: 1. End-stage renal disease. The patient is due for dialysis today and will be dialyzed this afternoon. She has been tolerating dialysis and fluid removal very well. Will also get her labs drawn during dialysis. 2. Generalized volume overload and edema. She has significant volume overload and we are trying to remove fluid with hemodialysis and ultrafiltration. We will try to remove 4 liters of fluid today and then will try again ultrafiltration tomorrow if our schedule allows. 3. Anemia and anemia is stable and does not need any urgent intervention. 4. Hyperkalemia. She did have hyperkalemia on last labs on January 30 with potassium level 5.6. Since then, she has been dialyzed and her electrolytes will be checked again today. We will plan to dialyze her with 2.0 mEq potassium bath. 5. Right foot infected wound. She had a debridement done and continues with wound care. She is also on a pain medications and no systemic antibiotics at present.
[2018-02-01] MEDS: ANEXSIA, NORCO 7.5MG/325MG TABLET(HYDROCODONE/APAP) PO PRN (21:11)
[2018-02-01] MEDS: ATORVASTATIN 20 MG TAB PO SCH (21:11)
[2018-02-01] MEDS: SENNA 8.6 MG TAB (SENOKOT) PO PRN (21:20)
[2018-02-01 22:00] VITALS: BP 137/52
[2018-02-02] MEDS: HEPARIN SOD (PORCINE) 5000 UNITS/ML VIAL SQ SCH ×4 (00:02→20:34)
[2018-02-02] MEDS: DAKIN'S 0.25% HALF-STRENGTH SOLN 480 ML TOP SCH ×5 (00:03→22:29)
[2018-02-02] MEDS: **hydrALAZINE** 10 MG TAB PO SCH ×4 (00:06→20:33)
[2018-02-02] MEDS: oxyCODONE 5MG TAB PO PRN ×3 (00:09→22:57)
[2018-02-02 06:00] VITALS: BP 115/55
[2018-02-02] MEDS: LEVEMIR (INSULIN DETEMIR) 1 UNITS/0.01ML SC SCH ×2 (09:36→20:33)
[2018-02-02] MEDS: HumaLOG INSULIN (NovoLOG) PER UNIT SC SCH ×4 (09:36→21:00)
[2018-02-02] MEDS: SERTRALINE 100 MG TAB PO SCH (09:37)
[2018-02-02] MEDS: ASPIRIN 81 MG ENTERIC TAB PO SCH (09:37)
[2018-02-02] MEDS: FAMOTIDINE 20 MG TAB PO SCH (09:37)
[2018-02-02] MEDS: predniSONE 10 MG TAB PO SCH (09:37)
[2018-02-02] MEDS: METOPROLOL TART 50 MG TAB PO SCH ×2 (09:37→20:32)
[2018-02-02] MEDS: CLOPIDOGREL 75 MG TAB PO SCH (09:37)
[2018-02-02] MEDS: guaiFENesin ER 600 MG TAB PO SCH ×2 (09:37→20:33)
[2018-02-02] MEDS: CANDESARTAN 4MG TABLET PO SCH (09:37)
[2018-02-02] MEDS: ALPRAZolam 0.5 MG TAB PO SCH ×3 (09:37→20:33)
[2018-02-02] MEDS: NYSTATIN 100,000 UNITS/GM TOPICAL PWD 15 GM TOP SCH ×2 (09:39→20:34)
[2018-02-02] MEDS: MICONAZOLE TOPICAL 2% CREAM 15GM TOP SCH (09:40)
[2018-02-02] MEDS: FLUTICASONE PROP 0.05% NASAL SPRAY 16 GM (FLONASE) SCH ×2 (09:40→20:34)
[2018-02-02] MEDS ORDERED: PERCOCET 5MG/325MG TAB PO ONE (10:30)
--- NOTE | 2018-02-02 10:31 | IPNPDOC ---
Date Seen The patient was seen on 02/02/18. Progress Note SUBJECTIVE: Pt c/o 4loose bm, abd pain without nausea or vomiting,and persistent pain in the right foot. She is heading down to dialysis. c/o insomnia since her . OBJECTIVE: VITAL SIGNS: Listed below. GENERAL: No sign of acute distress, alert and oriented times three. HEENT: Normocephalic, atraumatic. Extraocular motor grossly intact. CARDIOVASCULAR: Positive S1, S2, regular rate. LUNGS: Wheezes in bilateral lungs. No significant crackle. ABDOMEN: Soft, nontender, nondistended. Bowel sounds present. EXTREMITIES: Left below-knee amputation. Right lower extremity wrapped with a dressing. There is some discomfort to palpation. LABORATORY DATA: Listed below. ASSESSMENT AND PLAN:Ms. Ibarra is a 57 y/o female with past medical history of DM2, CAD s/p stenting, PVD s/p left BKA, COPD, HTN and ESRD on HD T,R,Sa. non-compliant with dialysis who presents to the ED with complaints of SOB for the past two days, diarrhea and nausea. The patient states that she went to her dialysis session last Monday and the following day woke up with profuse diarrhea and vomiting of bile, she did have a fever of 103.0. This is not unusual for her, she states she always has diarrhea and vomiting the day after a dialysis treatment. Denies recent travel or sick contacts, no muscle aches, chil ls or night sweats. However, she was so weak after this particular dialysis session a week ago that she could not make her follow or Monday dialysis appts., effectively missing two dialysis days. She states she is more SOB the past two days, non-exertional, and worse with laying flat, she describes some vague, sharp right breast pain that radiates to her mid sternum that has bothered her for two days, she states that the pain does not feel like her past heart attack, it apparently is worsened with inspiration and external palpation of the area of her right breast and sternum. No history of trauma. She was recently given a 10 day course ( which she states she completed) of antibiotic ( she thinks erythromycin but is unsure) by her PCP for a pus filled cyst located on the back of her scalp, apparently she thought it was red and swollen and she lanced it herself at home and states a lot of pus was exuded. PCP gave her abx for this. She states she saw vascular surgery yesterday outpatient and they want ed to bring her to the OR for debridement tomorrow of the right lower extremity/toes which she states have recently been more painful and red, she has history of toe amputations on this foot. In regards to her stool, she states there was no blood except a couple days last week she thought it looked black, she attributes this to "little orange pills they give me at dialysis", although this is the first time she states she noted black diarrhea. The diarrhea has continued to this morning and is now green/yellow and causes some vague abdominal discomfort with nausea, vomiting has subsided. She figured she should come in due to it not resolving for almost one week. Insulin-dependent diabetes,uncontrolled - Due to COPD exacerbation, patient is on steroid taper. Glucose has been very uncontrolled. resumed Levemir. On sliding scale. On consistent-carbohydrate diet. No IV Access PICC line as pt refused to have peripheral IV by RN. Right foot metatarsal amputation with ulcerations. - Wound culture from 10/29/2017 grew Enterococcus faecalis, Staphylococcus aureus, Corynebacteria. On IV vancomycin with dialysis. - Dr. Stern is consulted. S/P wound dbridements. - Patient has been refusing physical therapy. -prn pain meds End-stage renal disease, on hemodialysis. We appreciate nephrology's assistance. Dialysis is on Monday, and Monday. Clostridium (C) difficile colitis. - S/P oral vancomycin treatment. The patient's stool is formed. COPD exacerbation - Adjusting steroid as needed. On azithromycin. Elevated liver function test. - Medications reviewed. Patient refused liver ultrasound. Liver function is improving. Hypertension. The patient is on metoprolol. Hypomagnesemia. Continue to monitor. Supplement as needed. Hyperkalemia. Improved. Continue to monitor. Dyslipidemia, on statin. Coronary artery disease, status post percutaneous coronary angioplasty ([employer]), on aspirin, Lipitor, Plavix. Systolic and diastolic dysfunction, secondary to ischemic cardiomyopathy. Ejection fraction (EF) of 15%. Fluid management through dialysis. Peripheral vascular disease, status post left below-knee amputation (BKA), st atus post multiple stent placement previously. Medical noncompliance. Deep vein thrombosis (DVT) prophylaxis, on heparin. VS, I&O, 24H, Fishbone Vital Signs/I&O Vital Signs Date Time Temp Pulse Resp B/P (MAP) Pulse Ox O2 Delivery O2 Flow Rate FiO2 02/02/18 09:37 84 115/55 02/02/18 06:00 97.8 18 100 Room Air I&O- Last 24 Hours up to 6 AM 02/02/18 06:00 Intake Total 900 ml Output Total 4500 ml Balance -3600 ml Laboratory Data 24H LABS Laboratory Tests 2 02/01/18 11:29: Bedside Glucose (Misc Panel) 158H 02/01/18 20:42: Bedside Glucose (Misc Panel) 557*H 02/01/18 20:46: Bedside Glucose (Misc Panel) 534*H 02/01/18 21:02: Bedside Glucose Confirm (Misc) 563*H 02/01/18 22:54: Bedside Glucose (Misc Panel) 466H 02/02/18 06:54: Bedside Glucose (Misc Panel) 119H Microbiology Microbiology 01/29/18 Group A Streptococcus Screen ([facility]) - Final, Complete 01/29/18 Group A Streptococcus Screen ([facility]) - Final, Complete 01/24/18 Respiratory Virus Panel (PCR) ([facility]) - Final, Complete DAISHA WEBB MD Feb 02, 2018 10:31
[2018-02-02] MEDS ORDERED: HEPARIN 1,000 UNITS/ML 10ML VIAL (FOR RADIOLOGY& DIALYSIS ONLY) IV ONE (10:45)
[2018-02-02] MEDS ORDERED: HEPARIN 1,000 UNITS/ML 10ML VIAL (FOR RADIOLOGY& DIALYSIS ONLY) XX ONE (10:45)
--- NOTE | 2018-02-02 13:45 | IPN ---
DATE OF VISIT: 02/02/2018 Ms. Fred milan is seen this morning on her bedside. She underwent her regular hemodialysis treatment yesterday and another 4500 mL of fluid was removed. So far we have removed about 20 liters of fluid since admission. Her generalized edema has improved significantly and she denies any nausea, vomiting, dyspnea or chest pain. On physical examination, temperature 97.8 degrees Fahrenheit, heart rate 84 per minute and respiratory rate 18 per minute. Blood pressure 115/55 mmHg and oxygen saturation 100% on room air. Facial edema has completely resolved. Head is atraumatic. Neck is supple and jugular venous distention (JVD) is not abnormally elevated. Heart sounds are regular and lungs sound clear to auscultation. Her back edema has also resolved. Abdomen soft and nontender and bowel sounds are present. Extremities have 3+ lower extremity edema but no cyanosis or clubbing. Her right foot stump is in a dressing. She has a left [id number]-wtzy amputation. Neurologically, she is awake, alert and at her baseline mentation. She did not have any new labs done today. Her fingerstick blood sugars this morning are 119 133 respectively. PROBLEMS: 1. End-stage renal disease. The patient was dialyzed yesterday and 4500 mL of fluid was removed. She tolerated her dialysis treatment very well. 2. Hyperkalemia. Potassium level was 5.3 prior to dialysis and she was dialyzed with 2.0 mEq potassium bath. The patient did not have any labs drawn today and she refuses any labs to be drawn due to difficulty with her peripheral access. 3. Generalized edema and hypervolemia. Her volume status has improved significantly, but she still has at least 3+ lower extremity edema. We will try to bring her for another session of ultrafiltration today and will remove another 3 liters of fluid as tolerated. She should continue with fluid restriction of 1500 mL per day. 4. Anemia. Her anemia is stable at this point and no changes are being made.
[2018-02-02 16:30] VITALS: BP 128/60
[2018-02-02] MEDS: ATORVASTATIN 20 MG TAB PO SCH (20:32)
[2018-02-02] MEDS: ANEXSIA, NORCO 7.5MG/325MG TABLET(HYDROCODONE/APAP) PO PRN (20:33)
[2018-02-02 22:00] VITALS: BP 148/60
[2018-02-03] MEDS: ANEXSIA, NORCO 7.5MG/325MG TABLET(HYDROCODONE/APAP) PO PRN ×2 (03:50→17:29)
[2018-02-03] MEDS: HEPARIN SOD (PORCINE) 5000 UNITS/ML VIAL SQ SCH ×3 (05:44→21:25)
[2018-02-03 06:00] VITALS: BP 151/59
[2018-02-03] MEDS: FAMOTIDINE 20 MG TAB PO SCH (06:13)
[2018-02-03] MEDS: SERTRALINE 100 MG TAB PO SCH (06:13)
[2018-02-03] MEDS: CANDESARTAN 4MG TABLET PO SCH (06:14)
[2018-02-03] MEDS: METOPROLOL TART 50 MG TAB PO SCH ×2 (06:15→21:26)
[2018-02-03] MEDS: guaiFENesin ER 600 MG TAB PO SCH ×2 (06:15→21:26)
[2018-02-03] MEDS: CLOPIDOGREL 75 MG TAB PO SCH (06:15)
[2018-02-03] MEDS: predniSONE 10 MG TAB PO SCH (06:16)
[2018-02-03] MEDS: ASPIRIN 81 MG ENTERIC TAB PO SCH (06:16)
[2018-02-03] MEDS: **hydrALAZINE** 10 MG TAB PO SCH ×3 (06:16→21:26)
[2018-02-03] MEDS: ALPRAZolam 0.5 MG TAB PO SCH ×3 (06:16→21:26)
[2018-02-03] MEDS: LEVEMIR (INSULIN DETEMIR) 1 UNITS/0.01ML SC SCH ×2 (06:17→21:27)
[2018-02-03] MEDS: FLUTICASONE PROP 0.05% NASAL SPRAY 16 GM (FLONASE) SCH ×2 (06:17→21:28)
[2018-02-03] MEDS: MICONAZOLE TOPICAL 2% CREAM 15GM TOP SCH (06:18)
[2018-02-03] MEDS: NYSTATIN 100,000 UNITS/GM TOPICAL PWD 15 GM TOP SCH ×2 (06:20→21:28)
[2018-02-03] MEDS: oxyCODONE 5MG TAB PO PRN ×2 (06:20→21:29)
[2018-02-03] MEDS: SENNA 8.6 MG TAB (SENOKOT) PO PRN (06:42)
[2018-02-03 06:44] LABS: HEMATOCRIT 33.7 % (36.0-47.0); HEMOGLOBIN 10.2 g/dl (12.0-15.5); MEAN CORPUSCULAR HEMOGLOBIN 24.6 pg (27.0-33.0); MEAN CORPUSCULAR HGB CONC 30.3 g/dl (32.0-36.5); MEAN CORPUSCULAR VOLUME 81.2 fl (80.0-96.0); PLATELET COUNT, AUTOMATED 344 10^3/uL (150-450); RED BLOOD COUNT 4.15 10^6/uL (4.00-5.40); WHITE BLOOD COUNT 8.8 10^3/uL (4.0-10.0)
[2018-02-03 07:09] LABS: CALCIUM LEVEL 7.5 MG/DL (8.5-10.1); CREATININE FOR GFR 3.66 MG/DL (0.55-1.30); GLOMERULAR FILTRATION RATE 13.7 (>51); POTASSIUM SERUM 5.1 MEQ/L (3.5-5.1)
[2018-02-03] MEDS: HumaLOG INSULIN (NovoLOG) PER UNIT SC SCH ×4 (07:58→21:27)
--- NOTE | 2018-02-03 08:20 | IPNPDOC ---
Date Seen The patient was seen on 02/03/18. Progress Note SUBJECTIVE: Pt refusing dialysis today. "My foot was throbbing all night. I got no sleep, and if I see my son, I will wring his neck," referring to her family refusing to help her get a ramp into her house,and refusing to help pay for her property taxes, concerned that she will lose her house if cannot pay by April. no sob, no cp, lightheadedness. 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 OBJECTIVE: VITAL SIGNS: Listed below. GENERAL: No sign of acute distress, alert and oriented times three. HEENT: Normocephalic, atraumatic. Extraocular motor grossly intact. CARDIOVASCULAR: Positive S1, S2, regular rate. LUNGS: Wheezes in bilateral lungs. No significant crackle. ABDOMEN: Soft, nontender, nondistended. Bowel sounds present. EXTREMITIES: Left below-knee amputation. Right lower extremity wrapped with a dressing. There is some discomfort to palpation. LABORATORY DATA: Listed below. ASSESSMENT AND PLAN:Ms. Ibarra is a 57 y/o female with past medical history of DM2, CAD s/p stenting, PVD s/p left BKA, COPD, HTN and ESRD on HD T,R,Sa. non -compliant with dialysis who presents to the ED with complaints of SOB for the past two days, diarrhea and nausea. The patient states that she went to her dialysis session last Monday and the following day woke up with profuse diarrhea and vomiting of bile, she did have a fever of 103.0. This is not unusual for her, she states she always has diarrhea and vomiting the day after a dialysis treatment. Denies recent travel or sick contacts, no muscle aches, chills or night sweats. However, she was so weak after this particular dialysis session a week ago that she could not make her follow or Monday dialysis appts., effectively missing two dialysis days. She states she is more SOB the past two days, non-exertional, and worse with laying flat, she describes some vague, sharp right breast pain that radiates to her mid sternum that has bothered her for two days, she states that the pain does not feel like her past heart attack, it apparently is worsened with inspiration and external palpation of the area of her right breast and sternum. No history of trauma. She was recently given a 10 day course ( which she states she completed) of antibiotic ( she thinks erythromycin but is unsure) by her PCP for a pus filled cyst located on the back of her scalp, apparently she thought it was red and swollen and she lanced it herself at home and states a lot of pus was exuded. PCP gave her abx for this. She states she saw vascular surgery yesterday outpatient and they wanted to bring her to the OR for debridement tomorrow of the right lower extremity/toes which she states have recently been more painful and red, she has history of toe amputations on this foot. In regards to her stool, she states there was no blood except a couple days last week she thought it looked black, she attributes this to "little orange pills they give me at dialysis", although this is the first time she states she noted black diarrhea. The diarrhea has continued to this morning and is now green/yellow and causes some vague abdominal discomfort with nausea, vomiting has subsided. She figured she should come in due to it not resolving for almost one week. Insulin-dependent diabetes,uncontrolled - Due to COPD exacerbation, patient is on steroid taper. Glucose has been very uncontrolled. resumed Levemir. On sliding scale. On consistent-carbohydrate diet. No IV Access PICC line as pt refused to have peripheral IV by RN. Right foot metatarsal amputation with ulcerations. - Wound culture from 10/29/2017 grew Enterococcus faecalis, Staphylococcus aureus, Corynebacteria. On IV vancomycin with dialysis. - Dr. Stern is consulted. S/P wound dbridements. - Patient has been refusing physical therapy. -prn pain meds End-stage renal disease, on hemodialysis. We appreciate nephrology's ass istance. Dialysis is on Monday, and Monday. Clostridium (C) difficile colitis. - S/P oral vancomycin treatment. The patient's stool is formed. COPD exacerbation - Adjusting steroid as needed. On azithromycin. Elevated liver function test. - Medications reviewed. Patient refused liver ultrasound. Liver function is improving. Hypertension. The patient is on metoprolol. Hypomagnesemia. Continue to monitor. Supplement as needed. Hyperkalemia. Improved. Continue to monitor. Dyslipidemia, on statin. 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 Systolic and diastolic dysfunction, secondary to ischemic cardiomyopathy. Ejection fraction (EF) of 15%. Fluid management through dialysis. Peripheral vascular disease, status post left below-knee amputation (BKA), status post multiple stent placement previously. Medical noncompliance. Deep vein thrombosis (DVT) prophylaxis, on heparin. VS, I&O, 24H, Fishbone Vital Signs/I&O Vital Signs Date Time Temp Pulse Resp B/P (MAP) Pulse Ox O2 Delivery O2 Flow Rate FiO2 02/03/18 06:50 15 02/03/18 06:15 68 151/59 02/03/18 06:00 98.0 95 Room Air I&O- Last 24 Hours up to 6 AM 02/03/18 06:00 Intake Total 1870 ml Output Total 4000 ml Balance -2130 ml Laboratory Data 24H LABS Laboratory Tests 2 02/02/18 11:46: Bedside Glucose (Misc Panel) 133H 02/02/18 16:34: Bedside Glucose (Misc Panel) 77 02/02/18 22:02: Bedside Glucose (Misc Panel) 181H 02/03/18 06:16: Nucleated Red Blood Cells % (auto) 0.0, Anion Gap 11, Glomerular Filtration Rate 13.7L, Blood Urea Nitrogen 69H, Creatinine 3.66H, Sodium Level 137, Potassium Level 5.1, Chloride Level 106, Carbon Dioxide Level 20L, Calcium Level 7.5L CBC/BMP Laboratory Tests 02/03/18 06:16 Red Blood Count 4.15, Mean Corpuscular Volume 81.2, Mean Corpuscular Hemoglobin 24.6 L, Mean Corpuscular Hemoglobin Concent 30.3 L, Red Cell Distribution Width 23.6 H, Calcium Level 7.5 L Microbiology Microbiology 01/29/18 Group A Streptococcus Screen ([facility]) - Final, Complete 01/29/18 Group A Streptococcus Screen ([facility]) - Final, Complete 01/24/18 Respiratory Virus Panel (PCR) ([facility]) - Final, Complete DAISHA WEBB MD Feb 03, 2018 08:20
[2018-02-03] MEDS: DAKIN'S 0.25% HALF-STRENGTH SOLN 480 ML TOP SCH ×2 (13:52→21:10)
[2018-02-03 14:00] VITALS: BP 142/72
[2018-02-03] MEDS ORDERED: PATIROMER SORBITEX CALCIUM 8.4 GM POWDER PACKET (VELTASSA) PO ONE (14:30)
--- NOTE | 2018-02-03 15:14 | IPN ---
DATE: 02/03/2018 SUBJECTIVE: Patient seen and examined this morning at the bedside. She is not in a good mood. Reports she stayed up until 4 a.m. waiting for her son to come visit her yesterday. She refuses to go for hemodialysis today and asked to be left alone. I discussed her mild hyperkalemia with her. VITAL SIGNS: Temperature 98.0, pulse 65, respiratory rate 16, blood pressure 151/59, saturating 95% on room air. Intake yesterday was 1870, Dialysis yesterday removed 4000 mL. Net negative 2130. Weight in the bed scale today was refused by the patient. GENERAL: She is seen sitting up in bed, awake, alert. No acute distress. Extraocular muscles are intact. Tongue is moist. Neck is supple. Jugular veins are not elevated. CARDIAC: S1, S2, regular rate and rhythm. There is a right internal jugular (IJ) Perm-A-Cath that is dressed. LUNGS: Clear to auscultation. ABDOMEN: Soft and nontender. EXTREMITIES: Her lower extremities have 2+ pitting edema in the peripheries. Right foot stump has a dressing. There is a left below-knee amputation. There is a right upper extremity fistula, which is patent but not mature. NEUROLOGIC: She is awake, alert, and at her baseline mentation. LABORATORY DATA: Sodium 137, potassium 5.1, bicarbonate 20, BUN 69, creatinine 3.6. Hemoglobin 10.2. INPATIENT MEDICATIONS: Reviewed by myself and no change from prior. PROBLEMS: 1. End-stage renal disease, on hemodialysis via Perm-A-Cath with a patent but not mature fistula in the right upper extremity on a Monday, , Monday schedule. She was aggressively dialyzed over the past week with four [id number] treatments and a total of 16 liters of fluid removed. She was scheduled for dialysis this afternoon, but the patient was adamant and refusing. Her next dialysis treatment will be on Monday, and then we will put her back on her Monday, , Monday schedule. 2. Hyperkalemia. Potassium has been borderline elevated the past couple days. I will give her Veltassa over the weekend. Her next dialysis will be on Monday. She is already on a renal diet. 3. Severe systolic congestive heart failure and diastolic heart failure. Her echo from October of this year is reviewed. She has ejection fraction of 15%. She is volume overloaded. She was aggressively dialyzed the past 4 days. There was 16 liters of fluid removed. Her volume status is improved. She refused dialysis today. I encourage her to adhere to fluid restriction. We will plan for an extra treatment on Monday and then bring her back to her maintenance schedule. She is chronically noncompliant and usually volume overloaded. 4. Anemia related to chronic renal failure and chronic inflammatory state. Hemoglobin is at goal, and no changes are being made at present. 5. Right foot status post metatarsal amputation with wound ulcers, followed by vascular surgery and continues with local wound care. As per the primary team, she has peripheral vascular disease underlying. 6. Hypertension. Blood pressures are acceptable, systolic 110s to 140, and no changes are being made.
[2018-02-03] MEDS: ATORVASTATIN 20 MG TAB PO SCH (21:25)
[2018-02-03 22:00] VITALS: BP 150/70
[2018-02-04] MEDS: DAKIN'S 0.25% HALF-STRENGTH SOLN 480 ML TOP SCH ×2 (01:05→14:00)
[2018-02-04] MEDS: **hydrALAZINE** 10 MG TAB PO SCH ×3 (05:32→22:07)
[2018-02-04] MEDS: HEPARIN SOD (PORCINE) 5000 UNITS/ML VIAL SQ SCH ×3 (05:33→21:01)
[2018-02-04] MEDS: ANEXSIA, NORCO 7.5MG/325MG TABLET(HYDROCODONE/APAP) PO PRN (05:33)
[2018-02-04 06:00] VITALS: BP 146/67
[2018-02-04 07:42] LABS: HEMATOCRIT 35.2 % (36.0-47.0); HEMOGLOBIN 10.5 g/dl (12.0-15.5); MEAN CORPUSCULAR HEMOGLOBIN 24.7 pg (27.0-33.0); MEAN CORPUSCULAR HGB CONC 29.8 g/dl (32.0-36.5); MEAN CORPUSCULAR VOLUME 82.8 fl (80.0-96.0); PLATELET COUNT, AUTOMATED 343 10^3/uL (150-450); RED BLOOD COUNT 4.25 10^6/uL (4.00-5.40); WHITE BLOOD COUNT 6.7 10^3/uL (4.0-10.0)
[2018-02-04 08:28] LABS: CALCIUM LEVEL 7.5 MG/DL (8.5-10.1); CREATININE FOR GFR 4.36 MG/DL (0.55-1.30); GLOMERULAR FILTRATION RATE 11.2 (>51); POTASSIUM SERUM 6.1 MEQ/L (3.5-5.1)
[2018-02-04] MEDS: NYSTATIN 100,000 UNITS/GM TOPICAL PWD 15 GM TOP SCH ×2 (09:00→20:59)
[2018-02-04] MEDS: LEVEMIR (INSULIN DETEMIR) 1 UNITS/0.01ML SC SCH ×2 (09:02→21:00)
[2018-02-04] MEDS: HumaLOG INSULIN (NovoLOG) PER UNIT SC SCH ×4 (09:02→21:00)
[2018-02-04] MEDS: CANDESARTAN 4MG TABLET PO SCH (09:03)
[2018-02-04] MEDS: ASPIRIN 81 MG ENTERIC TAB PO SCH (09:03)
[2018-02-04] MEDS: FAMOTIDINE 20 MG TAB PO SCH (09:03)
[2018-02-04] MEDS: METOPROLOL TART 50 MG TAB PO SCH ×2 (09:07→22:08)
[2018-02-04] MEDS: ALPRAZolam 0.5 MG TAB PO SCH ×3 (09:08→20:57)
[2018-02-04] MEDS: SERTRALINE 100 MG TAB PO SCH (09:08)
[2018-02-04] MEDS: CLOPIDOGREL 75 MG TAB PO SCH (09:08)
[2018-02-04] MEDS: guaiFENesin ER 600 MG TAB PO SCH ×2 (09:08→20:57)
[2018-02-04] MEDS: predniSONE 10 MG TAB PO SCH (09:08)
[2018-02-04] MEDS: FLUTICASONE PROP 0.05% NASAL SPRAY 16 GM (FLONASE) SCH ×2 (09:09→20:59)
[2018-02-04] MEDS ORDERED: PERCOCET 5MG/325MG TAB PO ONE (09:30)
[2018-02-04] MEDS: MICONAZOLE TOPICAL 2% CREAM 15GM TOP SCH (09:37)
[2018-02-04] MEDS ORDERED: SOD POLYSTYRENE SULFONATE SUSP 15 GM/60 ML UD PO ONE ×2 (10:00→20:00)
--- NOTE | 2018-02-04 12:07 | IPNPDOC ---
Date Seen The patient was seen on 02/04/18. Progress Note SUBJECTIVE: Pt refused hemodialysis Monday02/03/18, and continues to have uncontrolled glucose>400 on increased doses of levemir at 30 units sq bid, continued on sliding scale with coverage. she continues to c/o right foot pain, awaiting vascular surgery on Monday to re-assess. no cyanosis of the LE. OBJECTIVE: VITAL SIGNS: Listed below. GENERAL: No sign of acute distress, alert and oriented times three. HEENT: Normocephalic, atraumatic. Extraocular motor grossly intact. CARDIOVASCULAR: Positive S1, S2, regular rate. LUNGS: Wheezes in bilateral lungs. No significant crackle. ABDOMEN: Soft, nontender, nondistended. Bowel sounds present. EXTREMITIES: Left below-knee amputation. Right lower extremity wrapped with a dressing. There is some discomfort to palpation. LABORATORY DATA: Listed below. ASSESSMENT AND PLAN:Ms. Ibarra is a 57 y/o female with past medical history of DM2, CAD s/p stenting, PVD s/p left BKA, COPD, HTN and ESRD on HD T,R,Sa. non-compliant with dialysis who presents to the ED with complaints of SOB for the past two days, diarrhea and nausea. The patient states that she went to her dialysis session last Monday and the following day woke up with profuse diarrhea and vomiting of bile, she did have a fever of 103.0. This is not unusual for her, she states she always has diarrhea and vomiting the day after a dialysis treatment. Denies recent travel or sick contacts, no muscle aches, chills or night sweats. However, she was so weak after this particular dialysis session a week ago that she could not make her follow or Monday dialysis appts., effectively missing two dialysis days. She states she is more SOB the past two days, non-exertional, and worse with laying flat, she describes some vague, sharp right breast pain that radiates to her mid sternum that has bothered her for two days, she states that the pain does not feel like her past heart attack, it apparently is worsened with inspiration and external palpation of the area of her right breast and sternum. No history of trauma. She was recently given a 10 day course ( which she states she completed) of antibiotic ( she thinks erythromycin but is unsure) by her PCP for a pus filled cyst located on the back of her scalp, apparently she thought it was red and swollen and she lanced it herself at home and states a lot of pus was exuded. PCP gave her abx for this. She states she saw vascular surgery yesterday outpatient and they wanted to bring her to the OR for debridement tomorrow of the right lower extremity/toes which she states have recently been more painful and red, she has history of toe amputations on this foot. In regards to her stool, she states there was no blood except a couple days last week she thought it looked black, she attributes this to "little orange pills they give me at dialysis", although this is the first time she states she noted black diarrhea. The diarrhea has continued to this morning and is now green/yellow and causes some vague abdo kavon discomfort with nausea, vomiting has subsided. She figured she should come in due to it not resolving for almost one week. Insulin-dependent diabetes,uncontrolled - Due to COPD exacerbation, patient is on steroid taper. Glucose has been very uncontrolled. resumed and titrated Levemir up. On sliding scale. On consistent-carbohydrate diet. No IV Access pt refused to have peripheral IV by RN. Right foot metatarsal amputation with ulcerations. - Wound culture from 10/29/2017 grew Enterococcus faecalis, Staphylococcus aureus, Corynebacteria. On IV vancomycin with dialysis. - Dr. Stern is consulted. S/P wound dbridements. - Patient has been refusing physical therapy. -prn pain meds End-stage renal disease, on hemodialysis. We appreciate nephrology's assistance. Dialysis is on Monday, and Monday. -refused dialysis on Monday02/03/18 with resultant hyperkalemia 02/04/18 s/p kayexalate and insulin for hyperglycemia. Clostridium (C) difficile colitis. - S/P oral vancomycin treatment. The patient's stool is formed. COPD exacerbation - Adjusting steroid as needed. On azithromycin. Elevated liver function test. - Medications reviewed. Patient refused liver ultrasound. Liver function is improving. Hypertension. The patient is on metoprolol. Hypomagnesemia. Continue to monitor. Supplement as needed. Hyperkalemia. Improved. Continue to monitor. Dyslipidemia, on statin. 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 Systolic and diastolic dysfunction, secondary to ischemic cardiomyopathy. Ejection fraction (EF) of 15%. Fluid management through dialysis. Peripheral vascular disease, status post left below-knee amputation (BKA), status post multiple stent placement previously. Medical noncompliance. Deep vein thrombosis (DVT) prophylaxis, on heparin. VS, I&O, 24H, Fishbone Vital Signs/I&O Vital Signs Date Time Temp Pulse Resp B/P (MAP) Pulse Ox O2 Delivery O2 Flow Rate FiO2 02/04/18 11:14 18 02/04/18 09:07 64 128/80 02/04/18 06:00 97.9 95 Room Air I&O- Last 24 Hours up to 6 AM 02/04/18 05:59 Intake Total 1396 ml Output Total 0 ml Balance 1396 ml Laboratory Data 24H LABS Laboratory Tests 2 02/03/18 16:44: Bedside Glucose (Misc Panel) 188H 02/03/18 21:03: Bedside Glucose (Misc Panel) 257H 02/04/18 05:11: Bedside Glucose (Misc Panel) 506*H 02/04/18 05:14: Bedside Glucose (Misc Panel) 464H 02/04/18 07:34: Nucleated Red Blood Cells % (auto) 0.0, Anion Gap 13, Glomerular Filtration Rate 11.2L, Blood Urea Nitrogen 87H, Creatinine 4.36H, Sodium Level 133L, Potassium Level 6.1*H, Chloride Level 102, Carbon Dioxide Level 18L, Calcium Level 7.5L 02/04/18 11:52: Bedside Glucose (Misc Panel) 171H CBC/BMP Laboratory Tests 02/04/18 07:34 Red Blood Count 4.25, Mean Corpuscular Volume 82.8, Mean Corpuscular Hemoglobin 24.7 L, Mean Corpuscular Hemoglobin Concent 29.8 L, Red Cell Distribution Width 23.9 H, Calcium Level 7.5 L Microbiology Microbiology 01/29/18 Group A Streptococcus Screen ([facility]) - Final, Complete 01/29/18 Group A Streptococcus Screen ([facility]) - Final, Complete DAISHA WEBB MD Feb 04, 2018 12:07
[2018-02-04 14:00] VITALS: BP 123/68
[2018-02-04] MEDS: GLUCOSE 4 GM CHEW TABLET PO PRN ×2 (17:02→17:25)
[2018-02-04 18:35] LABS: CALCIUM LEVEL 7.6 MG/DL (8.5-10.1); CREATININE FOR GFR 4.52 MG/DL (0.55-1.30); GLOMERULAR FILTRATION RATE 10.7 (>51); POTASSIUM SERUM 5.5 MEQ/L (3.5-5.1)
[2018-02-04] MEDS: ATORVASTATIN 20 MG TAB PO SCH (20:57)
[2018-02-04] MEDS: oxyCODONE 5MG TAB PO PRN (20:58)
[2018-02-04 22:00] VITALS: BP 147/59
[2018-02-05] MEDS: ANEXSIA, NORCO 7.5MG/325MG TABLET(HYDROCODONE/APAP) PO PRN ×2 (03:25→20:19)
[2018-02-05 06:00] VITALS: BP 141/58
[2018-02-05] MEDS: ALPRAZolam 0.5 MG TAB PO SCH ×3 (06:08→21:25)
[2018-02-05] MEDS: HEPARIN SOD (PORCINE) 5000 UNITS/ML VIAL SQ SCH ×3 (06:08→22:36)
[2018-02-05] MEDS: FAMOTIDINE 20 MG TAB PO SCH (06:08)
[2018-02-05] MEDS: ASPIRIN 81 MG ENTERIC TAB PO SCH (06:09)
[2018-02-05] MEDS: **hydrALAZINE** 10 MG TAB PO SCH ×3 (06:09→22:35)
[2018-02-05] MEDS: SERTRALINE 100 MG TAB PO SCH (06:09)
[2018-02-05] MEDS: guaiFENesin ER 600 MG TAB PO SCH ×2 (06:09→20:19)
[2018-02-05] MEDS: METOPROLOL TART 50 MG TAB PO SCH ×2 (06:09→21:25)
[2018-02-05] MEDS: CLOPIDOGREL 75 MG TAB PO SCH (06:11)
[2018-02-05] MEDS: predniSONE 10 MG TAB PO SCH (06:11)
[2018-02-05] MEDS: MICONAZOLE TOPICAL 2% CREAM 15GM TOP SCH (06:11)
[2018-02-05] MEDS: FLUTICASONE PROP 0.05% NASAL SPRAY 16 GM (FLONASE) SCH ×2 (06:11→20:19)
[2018-02-05] MEDS: NYSTATIN 100,000 UNITS/GM TOPICAL PWD 15 GM TOP SCH ×2 (06:12→20:20)
[2018-02-05 06:24] LABS: BASO % 0.5 % (0.0-1.0); EOS # 0.2 10^3/uL (0.0-0.50); EOS % 2.1 % (0.0-3.0); HEMATOCRIT 33.2 % (36.0-47.0); LYMPH # 1.2 10^3/uL (1.5-4.5); LYMPH % 14.3 % (24.0-44.0); MEAN CORPUSCULAR HEMOGLOBIN 24.7 pg (27.0-33.0); MEAN CORPUSCULAR HGB CONC 30.1 g/dl (32.0-36.5); MONO # 0.9 10^3/uL (0.0-0.8); MONO % 10.6 % (0.0-5.0); NEUTROPHILS # 5.8 10^3/uL (1.8-7.7); NEUTROPHILS % 71.1 % (36.0-66.0); PLATELET COUNT, AUTOMATED 306 10^3/uL (150-450); RED BLOOD COUNT 4.05 10^6/uL (4.00-5.40); WHITE BLOOD COUNT 8.1 10^3/uL (4.0-10.0)
[2018-02-05 07:27] LABS: CALCIUM LEVEL 7.5 MG/DL (8.5-10.1); CREATININE FOR GFR 4.56 MG/DL (0.55-1.30); GLOMERULAR FILTRATION RATE 10.6 (>51); POTASSIUM SERUM 5.7 MEQ/L (3.5-5.1)
[2018-02-05] MEDS: HumaLOG INSULIN (NovoLOG) PER UNIT SC SCH ×5 (07:30→21:32)
[2018-02-05] MEDS: LEVEMIR (INSULIN DETEMIR) 1 UNITS/0.01ML SC SCH ×3 (08:04→21:31)
[2018-02-05] MEDS ORDERED: HEPARIN 1,000 UNITS/ML 10ML VIAL (FOR RADIOLOGY& DIALYSIS ONLY) XX ONE (10:15)
[2018-02-05] MEDS ORDERED: HEPARIN 1,000 UNITS/ML 10ML VIAL (FOR RADIOLOGY& DIALYSIS ONLY) IV ONE (10:15)
--- NOTE | 2018-02-05 11:56 | IPNPDOC ---
Date Seen The patient was seen on 02/05/18. Progress Note SUBJECTIVE: Per RN, patient tried to leave AMA to smoke cigarettes yesterday and left her room in her wheelchair, but was stopped by [facility] staff prior to reaching the elevator. Pt refused hemodialysis Monday02/03/18, and continues to have uncontrolled glucose>400 on increased doses of levemir at 30 units sq bid, continued on sliding scale with coverage, but developed hypoglycemia 47 later in the afternoon on 02/04/18. she continues to c/o right foot pain, awaiting vascular surgery to re-assess. no cyanosis of the LE. OBJECTIVE: VITAL SIGNS: Listed below. GENERAL: No sign of acute distress, alert and oriented times three. sleeping in dialysis. easily arousable. HEENT: Normocephalic, atraumatic. Extraocular motor grossly intact. CARDIOVASCULAR: Positive S1, S2, regular rate. LUNGS: diminished. bilateral crackles. ABDOMEN: Soft, nontender, nondistended. Bowel sounds present. EXTREMITIES: Left below-knee amputation. Right lower extremity wrapped with a dressing. There is some discomfort to palpation. LABORATORY DATA: Listed below. ASSESSMENT AND PLAN:Ms. Ibarra is a 57 y/o female with past medical history of DM2, CAD s/p stenting, PVD s/p left BKA, COPD, HTN and ESRD on HD T,R,Sa. non-compliant with dialysis who presents to the ED with complaints of SOB for the past two days, diarrhea and nausea. The patient states that she went to her dialysis session last Monday and the following day woke up with profuse diarrhea and vomiting of bile, she did have a fever of 103.0. This is not unusual for her, she states she always has diarrhea and vomiting the day after a dialysis treatment. Denies recent travel or sick contacts, no muscle aches, chills or night sweats. However, she was so weak after this particular dialysis session a week ago that she could not make her follow or Monday dialysis appts., effectively missing two dialysis days. She states she is more SOB the past two days, non-exertional, and worse with laying flat, she describes some vague, sharp right breast pain that radiates to her mid sternum that has bothered her for two days, she states that the pain does not feel like her past heart attack, it apparently is worsened with inspiration and external palpation of the area of her right breast and sternum. No history of trauma. She was recently given a 10 day course ( which she states she completed) of antibiotic ( she thinks erythromycin but is unsure) by her PCP for a pus filled cyst located on the back of her scalp, apparently she thought it was red and swollen and she lanced it herself at home and states a lot of pus was exuded. PCP gave her abx for this. She states she saw vascular surgery yesterday outpatient and they wa nted to bring her to the OR for debridement tomorrow of the right lower extremity/toes which she states have recently been more painful and red, she has history of toe amputations on this foot. In regards to her stool, she states there was no blood except a couple days last week she thought it looked black, she attributes this to "little orange pills they give me at dialysis", although this is the first time she states she noted black diarrhea. The diarrhea has continued to this morning and is now green/yellow and causes some vague abdominal discomfort with nausea, vomiting has subsided. She figured she should come in due to it not resolving for almost one week. Insulin-dependent diabetes,uncontrolled - Due to COPD exacerbation, patient is on steroid taper. Glucose has been very uncontrolled. resumed and titrated Levemir up, but had episodes of hypoglycemia 47 on 02/04/18. On sliding scale. On consistent-carbohydrate diet. No IV Access pt refused to have peripheral IV by RN. Right foot metatarsal amputation with ulcerations. - Wound culture from 10/29/2017 grew Enterococcus faecalis, Staphylococcus aureus, Corynebacteria. On IV vancomycin with dialysis. - Dr. Stern is consulted. S/P wound dbridements. - Patient has been refusing physical therapy. -prn pain meds End-stage renal disease, on hemodialysis. We appreciate nephrology's assistance. Dialysis is on Monday, and Monday. -refused dialysis on Monday02/03/18 with resultant hyperkalemia 02/04/18 s/p kayexalate and insulin for hyperglycemia. Clostridium (C) difficile colitis. - S/P oral vancomycin treatment. The patient's stool is formed. COPD exacerbation - Adjusting steroid as needed. On azithromycin. Elevated liver function test. - Medications reviewed. Patient refused liver ultrasound. Liver function is improving. Hypertension. The patient is on metoprolol. Hypomagnesemia. Continue to monitor. Supplement as needed. Hyperkalemia. Improved. Continue to monitor. Dyslipidemia, on statin. Coronary artery disease, status post percutaneous coronary angioplasty ([employer]), on aspirin, Lipitor, Plavix. Systolic and diastolic dysfunction, secondary to ischemic cardiomyopathy. Ejection fraction (EF) of 15%. Fluid management through dialysis. Peripheral vascular disease, status post left below-knee amputation (BKA), status post multiple stent placement previously. Medical noncompliance. Deep vein thrombosis (DVT) prophylaxis, on heparin. VS, I&O, 24H, Fishbone Vital Signs/I&O Vital Signs Date Time Temp Pulse Resp B/P (MAP) Pulse Ox O2 Delivery O2 Flow Rate FiO2 02/05/18 06:09 141/54 02/05/18 06:09 62 02/05/18 06:00 98.0 18 98 Room Air I&O- Last 24 Hours up to 6 AM 02/05/18 05:59 Intake Total 956 ml Output Total 1 ml Balance 955 ml Laboratory Data 24H LABS Laboratory Tests 2 02/04/18 16:58: Bedside Glucose (Misc Panel) 46L 02/04/18 17:23: Bedside Glucose (Misc Panel) 47L 02/04/18 17:46: Bedside Glucose (Misc Panel) 84 02/04/18 18:03: Bedside Glucose Confirm (Misc) 115, Anion Gap 14, Glomerular Filtration Rate 10.7L, Blood Urea Nitrogen 96H, Creatinine 4.52H, Sodium Level 137, Potassium Level 5.5H, Chloride Level 107, Carbon Dioxide Level 16L, Calcium Level 7.6L 02/04/18 20:17: Bedside Glucose (Misc Panel) 161H 02/05/18 05:53: Immature Granulocyte % (Auto) 1.4, White Blood Count 8.1, Red Blood Count 4.05, Hemoglobin 10.0L, Hematocrit 33.2L, Mean Corpuscular Volume 82.0, Mean Corpuscular Hemoglobin 24.7L, Mean Corpuscular Hemoglobin Concent 30.1L, Red Cell Distribution Width 23.6H, Platelet Count 306, Neutrophils (%) (Auto) 71.1H, Lymphocytes (%) (Auto) 14.3L, Monocytes (%) (Auto) 10.6H, Eosinophils (%) (Auto) 2.1, Basophils (%) (Auto) 0.5, Neutrophils # (Auto) 5.8, Lymphocytes # (Auto) 1.2L, Monocytes # (Auto) 0.9H, Eosinophils # (Auto) 0.2, Basophils # (Auto) 0.0, Nucleated Red Blood Cells % (auto) 0.0, Anion Gap 14, Glomerular Filtration Rate 10.6L, Blood Urea Nitrogen 94H, Creatinine 4.56H, Sodium Level 136, Potassium Level 5.7H, Chloride Level 104, Carbon Dioxide Level 18L, Calcium Level 7.5L 02/05/18 08:48: Bedside Glucose (Misc Panel) 105 CBC/BMP Laboratory Tests 02/04/18 18:03 Calcium Level 7.6 L 02/05/18 05:53 Calcium Level 7.5 L, Red Blood Count 4.05, Mean Corpuscular Volume 82.0, Mean Corpuscular Hemoglobin 24.7 L, Mean Corpuscular Hemoglobin Concent 30.1 L, Red Cell Distribution Width 23.6 H, Neutrophils (%) (Auto) 71.1 H, Lymphocytes (%) (Auto) 14.3 L, Monocytes (%) (Auto) 10.6 H, Eosinophils (%) (Auto) 2.1, Basophils (%) (Auto) 0.5, Neutrophils # (Auto) 5.8, Lymphocytes # (Auto) 1.2 L, Monocytes # (Auto) 0.9 H, Eosinophils # (Auto) 0.2, Basophils # (Auto) 0.0 Microbiology Microbiology 01/29/18 Group A Streptococcus Screen ([facility]) - Final, Complete 01/29/18 Group A Streptococcus Screen ([facility]) - Final, Complete DAISHA WEBB MD Feb 05, 2018 11:56
[2018-02-05 14:00] VITALS: BP 144/50
--- NOTE | 2018-02-05 14:35 | IPN ---
DATE: 02/04/2018 SUBJECTIVE: Patient seen and examined this morning at the bedside. As usual, she is refusing interactions and is not in a good mood, asked to be left alone. She refused dialysis yesterday, even though I advised her that she was borderline hyperkalemic, we gave her a dose of Veltassa yesterday. This morning, she is frankly hyperkalemic with a potassium 6.1 and I discussed with the hospitalist staff regarding her insulin and concomitant hyperglycemia. She also received a dose of Kayexalate. She agrees to go for an extra dialysis treatment tomorrow morning. VITAL SIGNS: Temperature 97.9, pulse 64, respiratory rate 18, blood pressure 146/67, saturating 95% on room air. Intake yesterday was 860, weight on the bed scale today was 92.6 kg. GENERAL: She is seen lying in bed. Does not want to cooperate or participate with physical examination. Tongue is moist. There is a right IJ Perm-a-Cath in place with dressing. Jugular veins are mildly elevated. CARDIAC: S1, S2. Regular rate and rhythm. LUNGS: Diminished breath sounds at the base. Otherwise clear. ABDOMEN: Soft and nontender. EXTREMITIES: Significant edema, 2+ up to the hip and dependent areas. The right foot was not examined today. There is a right upper extremity fistula, which is patent but not mature. NEUROLOGIC: She is awake, alert, and at her usual baseline mentation. LABORATORY DATA: Sodium 133, potassium 6.1, bicarbonate 18, BUN 87, glucose 519. Hemoglobin 10.5. INPATIENT MEDICATIONS: I have discontinued the candesartan at present due to the hyperkalemia. Her insulin was adjusted per the primary team. She received a one time dose of Veltassa yesterday and she received a dose of Kayexalate today. Remainder of medications are unchanged from prior. PROBLEMS: 1. End-stage renal disease, on hemodialysis via Perm-A-Cath with a patent but not mature fistula in the right upper extremity. She is usually on a Monday, , Monday schedule; however, she was aggressively dialyzed on this admission. She had four serial hemodialysis treatments on Monday, Monday, and Monday. She refused her treatment yesterday, even though she was advised regarding the decompensated congestive heart failure (CHF) and the hyperkalemia. She is frankly hyperkalemic today. Next treatment will be on Monday morning if she agrees. Noncompliance very greatly complicates her care. 2. Hyperkalemia. She is requested to follow the renal diet with potassium restrictions. She refused dialysis yesterday. She received Veltassa yesterday and today she received Kayexalate. Primary team has adjusted her insulin, which will also help with her sugar and hyperkalemia. We will repeat a chemistry in the evening. She can also receive some sodium bicarbonate if needed. 3. Severe systolic congestive heart failure and diastolic heart failure. Ejection fraction of 15%. Very volume overloaded on exam. She was aggressively dialyzed with four back to back treatments this week with 16 liters of fluid removed. Unfortunately, she refused dialysis yesterday . We will plan for treatment tomorrow morning. I encouraged her to adhere to fluid restriction. As an outpatient she is noncompliant with diet and dialysis and is usually significantly volume overloaded. 4. Anemia related to chronic renal failure and chronic inflammatory state. Hemoglobin is at goal, and no changes are being made. 5. Hypertension. Blood pressures are acceptable, but I am holding the candesartan at present due to the hyperkalemia. 6. Right foot status metatarsal amputation with wound ulcers. Followed by vascular surgery and the primary team. Continue with local wound care. There is underlying peripheral vascular disease as well. She continues on aspirin, statin, Plavix.
[2018-02-05] MEDS: oxyCODONE 5MG TAB PO PRN ×2 (16:16→22:36)
[2018-02-05] MEDS: SENNA 8.6 MG TAB (SENOKOT) PO PRN (16:16)
[2018-02-05] MEDS: ATORVASTATIN 20 MG TAB PO SCH (20:19)
--- NOTE | 2018-02-05 21:51 | IPN ---
DATE: 02/05/2018 SUBJECTIVE: The patient is seen and examined this morning on hemodialysis, receiving an extra treatment, as she refused her dialysis treatment on Monday and became significantly hyperkalemic over the weekend necessitating Kayexalate. She complains of foot pain, otherwise denies any new complaint. Temperature 98.0, pulse 62, respiratory rate 18, blood pressure 141/58, saturation 98% on room air. Intake yesterday was 1500. Weight in the bed scale today is 87.4 kg. GENERAL: She is seen on dialysis, receiving her treatment, sleepy, but easily arousable and oriented. Extraocular muscles are intact. Tongue is moist. There is a right internal jugular PermCath in use. CARDIAC: S1, S2, regular rate. LUNGS: Have diminished breath sounds at the bases. ABDOMEN: Soft, and nontender. There are bowel sounds. There is a right upper extremity fistula, which is patent, but not mature. There is a left below the knee amputation and the right foot has a wound VAC. There is 2+ hard pitting edema in the peripheries that extends up to the hips in dependent area. LABORATORY: Sodium 136, potassium 5.7, bicarbonate 18, BUN 94, hemoglobin 10.0. INPATIENT MEDICATIONS REVIEWED BY MYSELF: Her candesartan is held because of hyperkalemia. Her insulin was adjusted per the primary team as was were here pain medications. Remainder of medications are unchanged from prior. PROBLEMS: 1. End-stage renal disease on hemodialysis in a patient who is grossly noncompliant with dialysis and fluid restriction. She is dialyzed via PermCath. She has patent, but not mature fistula in the right upper extremity. She refused Monday's dialysis session. She became hyperkalemic over the weekend. She received Kayexalate. She is now receiving an extra dialysis treatment today for hyperkalemia and we will dialyze her again tomorrow to bring her back on her maintenance schedule of Monday, and Monday. 2. Hyperkalemia secondary to missed/refused dialysis treatment. The patient is a potassium restricted diet. I held her candesartan. She is being dialyzed this morning in view of potassium 5.7 and she will be dialyzed again tomorrow to bring her back to her maintenance schedule. 3. Severe systolic congestive heart failure and diastolic heart failure. Her echocardiogram showed ejection fraction of 15% in October of this year. She is volume overloaded. She is noncompliant with fluid restriction as an outpatient and also noncompliant with dialysis. She was aggressively dialyzed last week with four [id number] treatments and 16 liters of fluid removed. I am dialyzing her today and again tomorrow; she is chronically noncompliant and usually volume overloaded. 4. Anemia related to chronic renal failure and chronic inflammatory state. Hemoglobin is at goal and no changes are being made at present. Iron panel pending. 5. Right foot status post transmetatarsal amputation with wound ulcers and with wound VAC. Continues with local wound care and with vascular surgery followup. 6. Hypertension. Blood pressures are acceptable. Her candesartan was held due to recurrent hyperkalemia. MTDD
[2018-02-05 22:00] VITALS: BP 144/62
[2018-02-06] MEDS: HEPARIN SOD (PORCINE) 5000 UNITS/ML VIAL SQ SCH ×3 (05:11→22:26)
[2018-02-06] MEDS: **hydrALAZINE** 10 MG TAB PO SCH ×3 (05:11→22:27)
[2018-02-06] MEDS: oxyCODONE 5MG TAB PO PRN ×2 (05:12→23:25)
[2018-02-06] MEDS: GLUCOSE 4 GM CHEW TABLET PO PRN ×4 (05:25→07:33)
[2018-02-06 06:00] VITALS: BP 146/59
[2018-02-06 06:02] LABS: BASO # 0.1 10^3/uL (0.0-0.2); BASO % 0.7 % (0.0-1.0); EOS # 0.2 10^3/uL (0.0-0.50); EOS % 2.1 % (0.0-3.0); HEMATOCRIT 32.4 % (36.0-47.0); HEMOGLOBIN 9.9 g/dl (12.0-15.5); LYMPH # 1.6 10^3/uL (1.5-4.5); LYMPH % 18.6 % (24.0-44.0); MEAN CORPUSCULAR HEMOGLOBIN 24.6 pg (27.0-33.0); MEAN CORPUSCULAR HGB CONC 30.6 g/dl (32.0-36.5); MEAN CORPUSCULAR VOLUME 80.6 fl (80.0-96.0); MONO % 11.8 % (0.0-5.0); NEUTROPHILS # 5.7 10^3/uL (1.8-7.7); NEUTROPHILS % 65.5 % (36.0-66.0); PLATELET COUNT, AUTOMATED 310 10^3/uL (150-450); RED BLOOD COUNT 4.02 10^6/uL (4.00-5.40); WHITE BLOOD COUNT 8.7 10^3/uL (4.0-10.0)
[2018-02-06 06:26] LABS: CALCIUM LEVEL 7.1 MG/DL (8.5-10.1); CREATININE FOR GFR 3.61 MG/DL (0.55-1.30); GLOMERULAR FILTRATION RATE 13.9 (>51); POTASSIUM SERUM 4.1 MEQ/L (3.5-5.1)
[2018-02-06] MEDS: guaiFENesin ER 600 MG TAB PO SCH ×2 (06:38→20:26)
[2018-02-06] MEDS: FAMOTIDINE 20 MG TAB PO SCH (06:38)
[2018-02-06] MEDS: CLOPIDOGREL 75 MG TAB PO SCH (06:38)
[2018-02-06] MEDS: NYSTATIN 100,000 UNITS/GM TOPICAL PWD 15 GM TOP SCH ×2 (06:39→20:26)
[2018-02-06] MEDS: SERTRALINE 100 MG TAB PO SCH (06:39)
[2018-02-06] MEDS: FLUTICASONE PROP 0.05% NASAL SPRAY 16 GM (FLONASE) SCH ×2 (06:39→20:27)
[2018-02-06] MEDS: ASPIRIN 81 MG ENTERIC TAB PO SCH (06:39)
[2018-02-06] MEDS: MICONAZOLE TOPICAL 2% CREAM 15GM TOP SCH (06:40)
[2018-02-06] MEDS: HumaLOG INSULIN (NovoLOG) PER UNIT SC SCH ×2 (07:30→13:48)
[2018-02-06] MEDS: ALPRAZolam 0.5 MG TAB PO SCH ×3 (08:14→20:26)
[2018-02-06] MEDS: METOPROLOL TART 50 MG TAB PO SCH ×2 (08:14→20:26)
[2018-02-06] MEDS: LEVEMIR (INSULIN DETEMIR) 1 UNITS/0.01ML SC SCH (09:00)
[2018-02-06] MEDS ORDERED: HEPARIN 1,000 UNITS/ML 10ML VIAL (FOR RADIOLOGY& DIALYSIS ONLY) XX ONE (12:15)
[2018-02-06] MEDS ORDERED: HEPARIN 1,000 UNITS/ML 10ML VIAL (FOR RADIOLOGY& DIALYSIS ONLY) IV ONE (12:15)
[2018-02-06] MEDS ORDERED: DARBEPOETIN 100 MCG/0.5 ML *DIALYSIS* SYRINGE (J0882) IV SCH (12:30)
[2018-02-06] MEDS: CANDESARTAN 4MG TABLET PO SCH (13:47)
[2018-02-06 14:00] VITALS: BP 148/59
[2018-02-06] MEDS: HumuLIN (NovoLIN)70/30 INSULIN INJ PER UNIT SC SCH (17:30)
[2018-02-06] MEDS: ATORVASTATIN 20 MG TAB PO SCH (20:26)
--- NOTE | 2018-02-06 21:31 | IPN ---
DATE: 02/06/2018 SUBJECTIVE: Isabella is seen and examined this morning on hemodialysis receiving her maintenance treatment. She complains of right foot pain. She complains of superficial wounds on the arms. She is otherwise tolerating her dialysis treatment without issue. Temperature 96.5, pulse 75, respiratory rate 18, blood pressure 146/59, saturating 95% on room air. Intake yesterday was 1040, dialysis yesterday removed 4000 mL. Weight in the bed scale today is 84.8 kg. General: Patient is seen on dialysis, awake, alert, no acute distress, receiving her maintenance treatment. Extraocular muscles are intact. Tongue is moist. Right internal jugular (IJ) Permacath is in use. Cardiac: S1, S2, regular rate. Lungs: Symmetric air entry bilaterally, no crackle or rale. Abdomen is soft and nontender. There are bowel sounds. There is a right upper extremity fistula which is patent, but not mature. There is a left [id number] amputation and the right foot has a wound vacuum assisted closure (VAC) in place. There is decreased pitting edema in the peripheries. Neurologic: She is interactive, conversational, and cooperative with physical exam. LABORATORY DATA: White count 8.7, hemoglobin 9.9, platelets 310, sodium 137, potassium 4.1. INPATIENT MEDICATIONS: I resumed her on candesartan 2 mg by mouth daily. Primary team adjusted her pain medication. Her insulin was also adjusted per the primary team. She is off of prednisone and remainder of medications are unchanged from prior. PROBLEMS: 1. End-stage renal disease on hemodialysis on a Monday, , Monday schedule. Patient is grossly noncompliant with dialysis. She has recurrent congestive heart failure (CHF) decompensation and has been aggressively dialyzed on this admission for improvement in volume status. She is now back on her regular Monday, , Monday maintenance schedule. 2. Hyperkalemia secondary to missed/refused dialysis treatment and dietary indiscretion. Patient is on a potassium restricted diet. She had dialysis yesterday and again today. She is normokalemic now. I have resumed her candesartan. 3. Severe systolic congestive heart failure and diastolic congestive heart failure. Ejection fraction of 15%. Her hypervolemia is improving with aggressive dialysis and ultrafiltration. 4. Anemia related to chronic renal failure and chronic inflammatory state. Hemoglobin is fairly close to goal and she is on Aranesp. 5. Hypertension. Blood pressures are acceptable. Her candesartan was resumed. 6. Insulin-dependent diabetes, uncontrolled with labile blood sugars. She is off of prednisone now. She fluctuates between hypoglycemia and hyperglycemia. She is receiving consistent carbohydrate diet and primary team has adjusted her insulin. 7. Right foot metatarsal amputation with ulcerations and wound vacuum assisted closure (VAC). She is followed by vascular surgery and receiving local wound care per the primary team. STARLA
[2018-02-06 22:00] VITALS: BP 133/61
--- NOTE | 2018-02-06 22:43 | IPNPDOC ---
Text Note Date of Service The patient was seen on 02/06/18. NOTE SUBJECTIVE: Patient had HD today so she back in her usual TTS schedule. recur rent hypoglycemias since last night but asymptomatic. she continues to c/o right foot pain, awaiting vascular surgery to re-assess. no cyanosis of the LE. She is not keeping the wound vac or the dressing on. Picking on them and taking them off. OBJECTIVE: VITAL SIGNS: Listed below. GENERAL: No sign of acute distress, alert and oriented times three. sleeping in dialysis. easily arousable. HEENT: Normocephalic, atraumatic. Extraocular motor grossly intact. CARDIOVASCULAR: Positive S1, S2, regular rate. LUNGS: diminished. bilateral crackles. ABDOMEN: Soft, nontender, nondistended. Bowel sounds present. EXTREMITIES: Left below-knee amputation. Right lower extremity wrapped with a dressing. There is some discomfort to palpation. LABORATORY DATA: Listed below. ASSESSMENT AND PLAN:Ms. Ibarra is a 57 y/o female with past medical history of DM2, CAD s/p stenting, PVD s/p left BKA, COPD, HTN and ESRD on HD T,R,Sa. non-compliant with dialysis who presents to the ED with complaints of SOB for the past two days, diarrhea and nausea. The patient states that she went to her dialysis session last Monday and the following day woke up with profuse diarrhea and vomiting of bile, she did have a fever of 103.0. This is not unusual for her, she states she always has diarrhea and vomiting the day after a dialysis treatment. Denies recent travel or sick contacts, no muscle aches, chills or night sweats. However, she was so weak after this particular dialysis session a week ago that she could not make her follow or Monday dialysis appts., effectively missing two dialysis days. She states she is more SOB the past two days, non-exertional, and worse with laying flat, she describes some vague, sharp right breast pain that radiates to her mid sternum that has bothered her for two days, she states that the pain does not feel like her past heart attack, it apparently is worsened with inspiration and external palpation of the area of her right breast and sternum. No history of trauma. She was recently given a 10 day course ( which she states she completed) of antibiotic ( she thinks erythromycin but is unsure) by her PCP for a pus filled cyst located on the back of her scalp, apparently she thought it was red and swollen and she lanced it herself at home and states a lot of pus was exuded. PCP gave her abx for this. She states she saw vascular surgery yesterday outpatient and they wanted to bring her to the OR for debridement tomorrow of the right lower extremity/toes which she states have recently been more painful and red, she has history of toe amputations on this foot. In regards to her stool, she states there was no blood except a couple days last week she thought it looked black, she attributes this to "little orange pills they give me at dialysis", although this is the first time she states she noted black diarrhea. The diarrhea has continued to this morning and is now green/yellow and causes some vague abdominal discomfort with nausea, vomiting has subsided. She figured she should come in due to it not resolving for almost one week. Insulin-dependent diabetes,uncontrolled very brittle insulin changed to humulin 70/30 as it is noted that patient only takes 2 meals a day. also on dialysis days she has mostly one meal. No IV Access pt refused to have peripheral IV by RN. Right foot metatarsal amputation with ulcerations. - Wound culture from 10/29/2017 grew Enterococcus faecalis, Staphylococcus aureus, Corynebacteria. On IV vancomycin with dialysis. - Dr. Stern is consulted. S/P wound dbridements. - Patient has been refusing physical therapy. -prn pain meds End-stage renal disease, on hemodialysis. We appreciate nephrology's assistance. Dialysis is on Monday, and Monday. -refused dialysis on Monday02/03/18 with resultant hyperkalemia 02/04/18 s/p kayexalate and insulin for hyperglycemia. back back to back HD on 02/05 and 02/06 Clostridium (C) difficile colitis. S/P oral vancomycin treatment. The patient's stool is formed. COPD Had an exacerbation which has now resolved. off steoids now. Elevated liver function test. Medications reviewed. Patient refused liver ultrasound. Liver function is imp roving. Hypertension. The patient is on metoprolol, hydralazine Dyslipidemia, on statin. Coronary artery disease, status post percutaneous coronary angioplasty ([employer]), on aspirin, Lipitor, Plavix. Systolic and diastolic CHF , secondary to ischemic cardiomyopathy. Ejection fraction (EF) of 15%. Fluid management through dialysis. Peripheral vascular disease, status post left below-knee amputation (BKA), status post multiple stent placement previously. smoker. Medical noncompliance. Deep vein thrombosis (DVT) prophylaxis, on heparin. VS,Fishbone, I+O VS, Fishbone, I+O Laboratory Tests 02/06/18 05:44 Red Blood Count 4.02, Mean Corpuscular Volume 80.6, Mean Corpuscular Hemoglobin 24.6 L, Mean Corpuscular Hemoglobin Concent 30.6 L, Red Cell Distribution Width 23.8 H, Neutrophils (%) (Auto) 65.5, Lymphocytes (%) (Auto) 18.6 L, Monocytes (%) (Auto) 11.8 H, Eosinophils (%) (Auto) 2.1, Basophils (%) (Auto) 0.7, Neutrophils # (Auto) 5.7, Lymphocytes # (Auto) 1.6, Monocytes # (Auto) 1.0 H, Eosinophils # (Auto) 0.2, Basophils # (Auto) 0.1, Calcium Level 7.1 L Vital Signs Date Time Temp Pulse Resp B/P (MAP) Pulse Ox O2 Delivery O2 Flow Rate FiO2 02/06/18 13:51 142/68 02/06/18 08:14 64 02/06/18 06:00 96.5 18 95 Room Air I&O- Last 24 Hours up to 6 AM 02/06/18 05:59 Intake Total 1040 ml Output Total 4000 ml Balance -2960 ml JABIER BRANHAM MD Feb 06, 2018 14:24
[2018-02-07] MEDS: ANEXSIA, NORCO 7.5MG/325MG TABLET(HYDROCODONE/APAP) PO PRN ×2 (05:20→22:15)
[2018-02-07] MEDS: HEPARIN SOD (PORCINE) 5000 UNITS/ML VIAL SQ SCH ×3 (05:29→22:12)
[2018-02-07] MEDS: **hydrALAZINE** 10 MG TAB PO SCH ×3 (05:30→22:13)
[2018-02-07] MEDS: HumuLIN (NovoLIN)70/30 INSULIN INJ PER UNIT SC SCH ×2 (05:48→18:30)
[2018-02-07 06:00] VITALS: BP 159/50
[2018-02-07 06:04] LABS: BASO # 0.1 10^3/uL (0.0-0.2); BASO % 0.7 % (0.0-1.0); EOS # 0.1 10^3/uL (0.0-0.50); HEMATOCRIT 30.5 % (36.0-47.0); HEMOGLOBIN 9.4 g/dl (12.0-15.5); LYMPH # 0.7 10^3/uL (1.5-4.5); LYMPH % 9.4 % (24.0-44.0); MEAN CORPUSCULAR HEMOGLOBIN 24.6 pg (27.0-33.0); MEAN CORPUSCULAR HGB CONC 30.8 g/dl (32.0-36.5); MEAN CORPUSCULAR VOLUME 79.8 fl (80.0-96.0); MONO # 0.7 10^3/uL (0.0-0.8); MONO % 9.5 % (0.0-5.0); PLATELET COUNT, AUTOMATED 292 10^3/uL (150-450); RED BLOOD COUNT 3.82 10^6/uL (4.00-5.40); WHITE BLOOD COUNT 7.7 10^3/uL (4.0-10.0)
[2018-02-07 06:25] LABS: CALCIUM LEVEL 7.3 MG/DL (8.5-10.1); CREATININE FOR GFR 3.1 MG/DL (0.55-1.30); GLOMERULAR FILTRATION RATE 16.5 (>51); POTASSIUM SERUM 5.4 MEQ/L (3.5-5.1)
[2018-02-07] MEDS ORDERED: HumuLIN (NovoLIN)70/30 INSULIN INJ PER UNIT SC SCH (07:30)
[2018-02-07] MEDS: CLOPIDOGREL 75 MG TAB PO SCH (08:20)
[2018-02-07] MEDS: ALPRAZolam 0.5 MG TAB PO SCH ×3 (08:20→22:13)
[2018-02-07] MEDS: FAMOTIDINE 20 MG TAB PO SCH (08:20)
[2018-02-07] MEDS: CANDESARTAN 4MG TABLET PO SCH (08:20)
[2018-02-07] MEDS: guaiFENesin ER 600 MG TAB PO SCH ×2 (08:20→22:14)
[2018-02-07] MEDS: SERTRALINE 100 MG TAB PO SCH (08:20)
[2018-02-07] MEDS: ASPIRIN 81 MG ENTERIC TAB PO SCH (08:20)
[2018-02-07] MEDS: FLUTICASONE PROP 0.05% NASAL SPRAY 16 GM (FLONASE) SCH ×2 (08:21→22:16)
[2018-02-07] MEDS: NYSTATIN 100,000 UNITS/GM TOPICAL PWD 15 GM TOP SCH ×2 (08:21→22:17)
[2018-02-07] MEDS: METOPROLOL TART 50 MG TAB PO SCH ×2 (08:21→22:14)
--- NOTE | 2018-02-07 11:45 | IPNPDOC ---
Text Note Date of Service The patient was seen on 02/07/18. NOTE SUBJECTIVE: Does not have any complaints this am. sugars > 600 today. insulin dose adjusted. OBJECTIVE: VITAL SIGNS: Listed below. GENERAL: No sign of acute distress, alert and oriented times three. sleeping in dialysis. easily arousable. HEENT: Normocephalic, atraumatic. Extraocular motor grossly intact. CARDIOVASCULAR: Positive S1, S2, regular rate. LUNGS: diminished. bilateral crackles. ABDOMEN: Soft, nontender, nondistended. Bowel sounds present. EXTREMITIES: Left below-knee amputation. Right lower extremity with wound vac LABORATORY DATA: Listed below. ASSESSMENT AND PLAN:Ms. Ibarra is a 57 y/o female with past medical history of DM2, CAD s/p stenting, PVD s/p left BKA, COPD, HTN and ESRD on HD T,R,Sa. non-compliant with dialysis who presents to the ED with complaints of SOB for the past two days, diarrhea and nausea. The patient states that she went to her dialysis session last Monday and the following day woke up with profuse diarrhea and vomiting of bile, she did have a fever of 103.0. This is not unusual for her, she states she always has diarrhea and vomiting the day after a dialysis treatment. Denies recent travel or sick contacts, no muscle aches, chills or night sweats. However, she was so weak after this particular dialysis session a week ago that she could not make her follow or Monday dialysis appts., effectively missing two dialysis days. She states she is more SOB the past two days, non-exertional, and worse with laying flat, she describes some vague, sharp right breast pain that radiates to her mid sternum that has bothered her for two days, she states that the pain does not feel like her past heart attack, it apparently is worsened with inspiration and external palpation of the area of her right breast and sternum. No history of trauma. She was recently given a 10 day course ( which she states she completed) of antibiotic ( she thinks erythromycin but is unsure) by her PCP for a pus filled cyst located on the back of her scalp, apparently she thought it was red and swollen and she lanced it herself at home and states a lot of pus was exuded. PCP gave her abx for this. She states she saw vascular surgery yesterday outpatient and they wanted to bring her to the OR for debridement tomorrow of the right lower extremity/toes which she states have recently been more painful and red, she has history of toe amputations on this foot. In regards to her stool, she states there was no blood except a couple days last week she thought it looked black, she attributes this to "little orange pills they give me at dialysis", although this is the first time she states she noted black diarrhea. The diarrhea has continued to this morning and is now green/yellow and causes some vague abdominal discomfort with nausea, vomiting has subsided. She figured she should come in due to it not resolving for almost one week. Insulin-dependent diabetes,uncontrolled very brittle insulin changed to human 70/30 as it is noted that patient only takes 2 meals a day. also on dialysis days she has mostly one meal. No IV Access pt refused to have peripheral IV by RN. Right foot metatarsal amputation with ulcerations. -Wound culture from 10/29/2017 grew Enterococcus faecalis, Staphylococcus aureus, Corynebacteria. On IV vancomycin with dialysis. - Dr. Stern is consulted. S/P wound dbridements. When patient ready to go home wound vac can be removed and can do foam dressing daily and prn. - Patient has been refusing physical therapy. -prn pain meds End-stage renal disease, on hemodialysis. We appreciate nephrology's assistance. Dialysis is on Monday, and Monday. -refused dialysis on Monday02/03/18 with resultant hyperkalemia 02/04/18 s/p kayexalate and insulin for hyperglycemia. back back to back HD on 02/05 and 02/06 Clostridium (C) difficile colitis. S/P oral vancomycin treatment. The patient's stool is formed. COPD Had an exacerbation which has now resolved. off steroids now. Elevated liver function test. Medications reviewed. Patient refused liver ultrasound. Liver function is improving. Hypertension. The patient is on metoprolol, hydralazine, candesartan Dyslipidemia, on statin. Coronary artery disease, status post percutaneous coronary angioplasty ([employer]), on aspirin, Lipitor, Plavix. Systolic and diastolic CHF , secondary to ischemic cardiomyopathy. Ejection fraction (EF) of 15%. Fluid management through dialysis. Peripheral vascular disease, status post left below-knee amputation (BKA), status post multiple stent placement previously. smoker. Medical noncompliance. Deep vein thrombosis (DVT) prophylaxis, on heparin. VS,Fishbone, I+O VS, Fishbone, I+O Laboratory Tests 02/07/18 05:44 Red Blood Count 3.82 L, Mean Corpuscular Volume 79.8 L, Mean Corpuscular Hemoglobin 24.6 L, Mean Corpuscular Hemoglobin Concent 30.8 L, Red Cell Distribution Width 23.8 H, Neutrophils (%) (Auto) 78.0 H, Lymphocytes (%) (Auto) 9.4 L, Monocytes (%) (Auto) 9.5 H, Eosinophils (%) (Auto) 1.0, Basophils (%) (Auto) 0.7, Neutrophils # (Auto) 6.0, Lymphocytes # (Auto) 0.7 L, Monocytes # (Auto) 0.7, Eosinophils # (Auto) 0.1, Basophils # (Auto) 0.1, Calcium Level 7.3 L Vital Signs Date Time Temp Pulse Resp B/P (MAP) Pulse Ox O2 Delivery O2 Flow Rate FiO2 02/07/18 08:21 73 159/50 02/07/18 06:00 99.6 17 94 Room Air I&O- Last 24 Hours up to 6 AM 02/07/18 06:00 Intake Total 1660 ml Output Total 3500 ml Balance -1840 ml JABIER BRANHAM MD Feb 07, 2018 11:45
[2018-02-07] MEDS ORDERED: HumaLOG INSULIN (NovoLOG) PER UNIT SC ONE (12:15)
[2018-02-07] MEDS: LACTULOSE 20 GM/30 ML SYRUP UD PO PRN (12:37)
[2018-02-07 14:00] VITALS: BP 147/58
--- NOTE | 2018-02-07 18:43 | IPN ---
DATE: 02/07/2018 SUBJECTIVE: The patient is seen and examined this morning at the bedside. She tolerated dialysis yesterday without issues and 3500 mL was removed. She is back on her usual Monday, , Monday schedule. Glucose today was 600+. She complains of right foot pain. VITAL SIGNS: Temperature 99.6, pulse 73, respiratory rate 17, blood pressure 159/50, saturating 94% on room air. Intake yesterday 1420, dialysis removed 3500, net negative 2079. Weight in the bed scale today was refused by the patient. GENERAL: She is seen lying in bed, cantankerous, but in no acute distress, picking at the wounds on her arms now with dressings bilaterally from wrist to elbow. Extraocular muscles are intact. Tongue is moist. Right internal jugular (IJ) PermaCath in place. CARDIAC: S1, S2, regular rate and rhythm. LUNGS: Diminished at the bases, otherwise clear, comfortable on room air. ABDOMEN: Soft and nontender. There are bowel sounds. EXTREMITIES: Left [id number] amputation. Right foot with a transmetatarsal amputation and with a wound vacuum-assisted closure (VAC). There is pitting edema in the peripheries. LABORATORY DATA: White count 7.7, hemoglobin 9.4. Sodium 130, potassium 5.4, glucose 612. INPATIENT MEDICATIONS: Reviewed by myself. Her insulin was adjusted per the primary team. She is started on lactulose. Remainder of medications are unchanged from prior. PROBLEMS: 1. End-stage renal disease, on hemodialysis on Monday, , Monday schedule. She has received extra treatments over the course of her admission due to decompensated heart failure. She has had improvement in her volume status. Next dialysis session will be on . Her PermaCath is in good use. The right upper extremity fistula is patent but not mature. She is pending further vascular intervention for the same. 2. Hyperkalemia, secondary to significant hyperglycemia. Insulin has been adjusted per the primary team. She will be dialyzed tomorrow with a 2.0 mEq bath. She is continue on a potassium restricted diet. Okay to continue low-dose candesartan. 3. Severe systolic congestive heart failure and diastolic congestive heart failure. Ejection fraction 15%. Hypervolemia is improving with the dialysis and ultrafiltration. She is counseled on fluid restriction. 4. Anemia related to chronic renal failure and chronic inflammatory state. Continue Aranesp. She may be hyporesponsive due to inflammation. She can receive transfusion as needed. At present, there is no need for transfusion. 5. Right foot metatarsal amputation with ulcerations and wound vacuum-assisted closure (VAC), followed by vascular surgery and managed as well by primary team. Continue with local wound care. There is peripheral vascular disease underlying and she continues on aspirin, statin, and Plavix. 6. Hypertension. Blood pressures are acceptable and no change is being made to the current regimen.
[2018-02-07 22:00] VITALS: BP 169/72
[2018-02-07] MEDS: ATORVASTATIN 20 MG TAB PO SCH (22:12)
[2018-02-08 06:00] VITALS: BP 153/69
[2018-02-08 06:31] LABS: BASO # 0.1 10^3/uL (0.0-0.2); BASO % 0.6 % (0.0-1.0); EOS # 0.3 10^3/uL (0.0-0.50); EOS % 3.2 % (0.0-3.0); HEMATOCRIT 30.8 % (36.0-47.0); HEMOGLOBIN 9.8 g/dl (12.0-15.5); LYMPH # 1.1 10^3/uL (1.5-4.5); LYMPH % 13.7 % (24.0-44.0); MEAN CORPUSCULAR HEMOGLOBIN 25.3 pg (27.0-33.0); MEAN CORPUSCULAR HGB CONC 31.8 g/dl (32.0-36.5); MEAN CORPUSCULAR VOLUME 79.6 fl (80.0-96.0); MONO # 0.8 10^3/uL (0.0-0.8); MONO % 9.6 % (0.0-5.0); NEUTROPHILS # 5.8 10^3/uL (1.8-7.7); PLATELET COUNT, AUTOMATED 293 10^3/uL (150-450); RED BLOOD COUNT 3.87 10^6/uL (4.00-5.40); WHITE BLOOD COUNT 8.1 10^3/uL (4.0-10.0)
[2018-02-08] MEDS: guaiFENesin ER 600 MG TAB PO SCH ×2 (06:48→21:00)
[2018-02-08] MEDS: ASPIRIN 81 MG ENTERIC TAB PO SCH (06:48)
[2018-02-08] MEDS: CANDESARTAN 4MG TABLET PO SCH (06:48)
[2018-02-08] MEDS: HEPARIN SOD (PORCINE) 5000 UNITS/ML VIAL SQ SCH ×3 (06:48→22:00)
[2018-02-08] MEDS: FAMOTIDINE 20 MG TAB PO SCH (06:49)
[2018-02-08] MEDS: ALPRAZolam 0.5 MG TAB PO SCH ×3 (06:50→21:00)
[2018-02-08] MEDS: **hydrALAZINE** 10 MG TAB PO SCH ×3 (06:51→22:00)
[2018-02-08] MEDS: CLOPIDOGREL 75 MG TAB PO SCH (06:51)
[2018-02-08] MEDS: SERTRALINE 100 MG TAB PO SCH (06:51)
[2018-02-08] MEDS: FLUTICASONE PROP 0.05% NASAL SPRAY 16 GM (FLONASE) SCH ×2 (06:51→21:00)
[2018-02-08] MEDS: NYSTATIN 100,000 UNITS/GM TOPICAL PWD 15 GM TOP SCH ×2 (06:53→21:00)
[2018-02-08 08:44] LABS: CALCIUM LEVEL 7.8 MG/DL (8.5-10.1); CREATININE FOR GFR 3.94 MG/DL (0.55-1.30); GLOMERULAR FILTRATION RATE 12.5 (>51); POTASSIUM SERUM 5.2 MEQ/L (3.5-5.1)
[2018-02-08] MEDS: METOPROLOL TART 50 MG TAB PO SCH ×2 (09:00→21:00)
[2018-02-08] MEDS: HumuLIN (NovoLIN)70/30 INSULIN INJ PER UNIT SC SCH ×2 (09:00→17:15)
[2018-02-08] MEDS: ANEXSIA, NORCO 7.5MG/325MG TABLET(HYDROCODONE/APAP) PO PRN (09:56)
[2018-02-08] MEDS ORDERED: HEPARIN 1,000 UNITS/ML 10ML VIAL (FOR RADIOLOGY& DIALYSIS ONLY) XX ONE (11:30)
[2018-02-08] MEDS ORDERED: HEPARIN 1,000 UNITS/ML 10ML VIAL (FOR RADIOLOGY& DIALYSIS ONLY) IV ONE (11:30)
[2018-02-08] MEDS ORDERED: LIDOCAINE 1% SDV 5 ML VIAL SQ ONE (11:30)
--- NOTE | 2018-02-08 13:49 | IPNPDOC ---
Text Note Date of Service The patient was seen on 02/08/18. NOTE SUBJECTIVE: Does not have any complaints this am. sugars better today no hypo glycemia, sugars in 300s. OBJECTIVE: VITAL SIGNS: Listed below. GENERAL: No sign of acute distress, alert and oriented times three. sleeping in dialysis. easily arousable. HEENT: Normocephalic, atraumatic. Extraocular motor grossly intact. CARDIOVASCULAR: Positive S1, S2, regular rate. LUNGS: diminished. bilateral crackles. ABDOMEN: Soft, nontender, nondistended. Bowel sounds present. EXTREMITIES: Left below-knee amputation. Right lower extremity with wound vac LABORATORY DATA: Listed below. ASSESSMENT AND PLAN:Ms. Ibarra is a 57 y/o female with past medical history of DM2, CAD s/p stenting, PVD s/p left BKA, COPD, HTN and ESRD on HD T,R,Sa. non-compliant with dialysis who presents to the ED with complaints of SOB for the past two days, diarrhea and nausea. The patient states that she went to her dialysis session last Monday and the following day woke up with profuse diarrhea and vomiting of bile, she did have a fever of 103.0. This is not unusual for her, she states she always has diarrhea and vomiting the day after a dialysis treatment. Denies recent travel or sick contacts, no muscle aches, chills or night sweats. However, she was so weak after this particular dialysis session a week ago that she could not make her follow or Monday dialysis appts., effectively missing two dialysis days. She states she is more SOB the past two days, non-exertional, and worse with laying flat, she describes some vague, sharp right breast pain that radiates to her mid sternum that has bothered her for two days, she states that the pain does not feel like her past heart attack, it apparently is worsened with inspiration and external palpation of the area of her right breast and sternum. No history of trauma. She was recently given a 10 day course ( which she states she completed) of antibiotic ( she thinks erythromycin but is unsure) by her PCP for a pus filled cyst located on the back of her scalp, apparently she thought it was red and swollen and she lanced it herself at home and states a lot of pus was exuded. PCP gave her abx for this. She states she saw vascular surgery yesterday outpatient and they wanted to bring her to the OR for debridement tomorrow of the right lower extremity/toes which she states have recently been more painful and red, she has history of toe amputations on this foot. In regards to her stool, she states there was no blood except a couple days last week she thought it looked black, she attributes this to "little orange pills they give me at dialysis", although this is the first time she states she noted black diarrhea. The diarrhea has continued to this morning and is now green/yellow and causes some vague abdominal discomfort with nausea, vomiting has subsided. She figured she should come in due to it not resolving for almost one week. Insulin-dependent diabetes,uncontrolled very brittle insulin changed to human 70/30 as it is noted that patient only takes 2 meals a day. also on dialysis days she has mostly one meal. No IV Access pt refused to have peripheral IV by RN. Right foot metatarsal amputation with ulcerations. -Wound culture from 10/29/2017 grew Enterococcus faecalis, Staphylococcus aureus, Corynebacteria. On IV vancomycin with dialysis. - Dr. Stern is consulted. S/P wound dbridements. When patient ready to go home wound vac can be removed and can do foam dressing daily and prn. - Patient has been refusing physical therapy. -prn pain meds End-stage renal disease, on hemodialysis. We appreciate nephrology's assistance. Dialysis is on Monday, and Monday. -refused dialysis on Monday02/03/18 with resultant hyperkalemia 02/04/18 s/p kayexalate and insulin for hyperglycemia. back back to back HD on 02/05 and 02/06 Clostridium (C) difficile colitis. S/P oral vancomycin treatment. The patient's stool is formed. COPD Had an exacerbation which has now resolved. off steroids now. Elevated liver function test. Medications reviewed. Patient refused liver ultrasound. Liver function is improving. Hypertension. The patient is on metoprolol, hydralazine, candesartan Dyslipidemia, on statin. Coronary artery disease, status post percutaneous coronary angioplasty (OXYACETYLENE BURNER), on aspirin, Lipitor, Plavix. Systolic and diastolic CHF , secondary to ischemic cardiomyopathy. Ejection fraction (EF) of 15%. Fluid management through dialysis. Peripheral vascular disease, status post left below-knee amputation (BKA), status post multiple stent placement previously. smoker. Medical noncompliance. Deep vein thrombosis (DVT) prophylaxis, on heparin. VS,Fishbone, I+O VS, Fishbone, I+O Laboratory Tests 02/08/18 06:18 Red Blood Count 3.87 L, Mean Corpuscular Volume 79.6 L, Mean Corpuscular Hemoglobin 25.3 L, Mean Corpuscular Hemoglobin Concent 31.8 L, Red Cell Distribution Width 23.2 H, Neutrophils (%) (Auto) 72.0 H, Lymphocytes (%) (Auto) 13.7 L, Monocytes (%) (Auto) 9.6 H, Eosinophils (%) (Auto) 3.2 H, Basophils (%) (Auto) 0.6, Neutrophils # (Auto) 5.8, Lymphocytes # (Auto) 1.1 L, Monocytes # (Auto) 0.8, Eosinophils # (Auto) 0.3, Basophils # (Auto) 0.1 Vital Signs Date Time Temp Pulse Resp B/P (MAP) Pulse Ox O2 Delivery O2 Flow Rate FiO2 02/07/18 22:45 20 Room Air 02/07/18 22:14 61 169/72 02/07/18 22:00 97.6 99 I&O- Last 24 Hours up to 6 AM 02/08/18 06:00 Intake Total 1190 ml Output Total 0 ml Balance 1190 ml JABIER BRANHAM MD Feb 08, 2018 06:41
[2018-02-08 15:30] VITALS: BP 128/62
[2018-02-08 22:00] VITALS: BP 159/60
[2018-02-08] MEDS: ATORVASTATIN 20 MG TAB PO SCH (22:01)
[2018-02-09] MEDS ORDERED: HumaLOG INSULIN (NovoLOG) PER UNIT SC ONE ×2 (00:45)
[2018-02-09] MEDS ORDERED: GLUCAGON FOR INJ 1 MG VIAL (J1610) SC PRN (02:15)
[2018-02-09] MEDS ORDERED: GLUCOSE 4 GM CHEW TABLET PO PRN (02:15)
[2018-02-09] MEDS ORDERED: DEXTROSE 50% 50 ML SYRINGE IV PRN (02:15)
[2018-02-09] MEDS: HumaLOG INSULIN (NovoLOG) PER UNIT SC SCH ×3 (02:47→16:45)
[2018-02-09 06:00] VITALS: BP 137/65
[2018-02-09] MEDS: HEPARIN SOD (PORCINE) 5000 UNITS/ML VIAL SQ SCH ×4 (06:00→20:54)
[2018-02-09] MEDS: **hydrALAZINE** 10 MG TAB PO SCH ×4 (06:00→20:55)
[2018-02-09 06:29] LABS: BASO # 0.1 10^3/uL (0.0-0.2); BASO % 0.7 % (0.0-1.0); EOS # 0.3 10^3/uL (0.0-0.50); EOS % 3.8 % (0.0-3.0); HEMATOCRIT 30.3 % (36.0-47.0); HEMOGLOBIN 9.5 g/dl (12.0-15.5); LYMPH # 1.1 10^3/uL (1.5-4.5); LYMPH % 12.8 % (24.0-44.0); MEAN CORPUSCULAR HEMOGLOBIN 24.8 pg (27.0-33.0); MEAN CORPUSCULAR HGB CONC 31.4 g/dl (32.0-36.5); MEAN CORPUSCULAR VOLUME 79.1 fl (80.0-96.0); MONO # 0.8 10^3/uL (0.0-0.8); MONO % 9.4 % (0.0-5.0); NEUTROPHILS # 6.1 10^3/uL (1.8-7.7); NEUTROPHILS % 72.1 % (36.0-66.0); PLATELET COUNT, AUTOMATED 277 10^3/uL (150-450); RED BLOOD COUNT 3.83 10^6/uL (4.00-5.40); WHITE BLOOD COUNT 8.5 10^3/uL (4.0-10.0)
[2018-02-09 06:50] LABS: CALCIUM LEVEL 8.2 MG/DL (8.5-10.1); CREATININE FOR GFR 3.14 MG/DL (0.55-1.30); GLOMERULAR FILTRATION RATE 16.3 (>51); PERCENT SATURATION 9.8 % (13.2-45.0); POTASSIUM SERUM 4.2 MEQ/L (3.5-5.1)
[2018-02-09] MEDS: GLUCOSE 4 GM CHEW TABLET PO PRN (07:02)
[2018-02-09] MEDS: HumuLIN (NovoLIN)70/30 INSULIN INJ PER UNIT SC SCH ×2 (07:30→18:11)
[2018-02-09] MEDS: NYSTATIN 100,000 UNITS/GM TOPICAL PWD 15 GM TOP SCH ×2 (09:00→20:56)
[2018-02-09] MEDS ORDERED: IRON SUCROSE 100MG 5ML VIAL (J1756 PER 1MG) IV SCH (09:00)
[2018-02-09] MEDS: ALPRAZolam 0.5 MG TAB PO SCH ×3 (09:00→20:56)
[2018-02-09] MEDS: METOPROLOL TART 50 MG TAB PO SCH ×2 (10:33→20:56)
[2018-02-09] MEDS: ASPIRIN 81 MG ENTERIC TAB PO SCH (10:34)
[2018-02-09] MEDS: CANDESARTAN 4MG TABLET PO SCH (10:35)
[2018-02-09] MEDS: CLOPIDOGREL 75 MG TAB PO SCH (10:36)
[2018-02-09] MEDS: FAMOTIDINE 20 MG TAB PO SCH (10:36)
[2018-02-09] MEDS: SERTRALINE 100 MG TAB PO SCH (10:36)
[2018-02-09] MEDS: guaiFENesin ER 600 MG TAB PO SCH ×2 (10:36→20:56)
[2018-02-09] MEDS: FLUTICASONE PROP 0.05% NASAL SPRAY 16 GM (FLONASE) SCH ×2 (10:39→20:56)
--- NOTE | 2018-02-09 11:58 | IPNPDOC ---
Text Note Date of Service The patient was seen on 02/09/18. NOTE SUBJECTIVE: Says very shaky this morning. Her sugars was low. As per nurses y last night she was chewing glucose tabs , also bottles of norco and xanax were found in her room last night. Her sugars at midnight were > 400 so received lispro and this morning it was down to 40 OBJECTIVE: VITAL SIGNS: Listed below. GENERAL: No sign of acute distress, alert and oriented times three. sleeping in dialysis. easily arousable. HEENT: Normocephalic, atraumatic. Extraocular motor grossly intact. CARDIOVASCULAR: Positive S1, S2, regular rate. LUNGS: diminished. bilateral crackles. ABDOMEN: Soft, nontender, nondistended. Bowel sounds present. EXTREMITIES: Left below-knee amputation. Right lower extremity with wound vac LABORATORY DATA: Listed below. ASSESSMENT AND PLAN:Ms. Ibarra is a 57 y/o female with past medical history of DM2, CAD s/p stenting, PVD s/p left BKA, COPD, HTN and ESRD on HD T,R,Sa. non-compliant with dialysis who presents to the ED with complaints of SOB for the past two days, diarrhea and nausea. The patient states that she went to her dialysis session last Monday and the following day woke up with profuse diarrhea and vomiting of bile, she did have a fever of 103.0. This is not unusual for her, she states she always has diarrhea and vomiting the day after a dialysis treatment. Denies recent travel or sick contacts, no muscle aches, chills or night sweats. However, she was so weak after this particular dialysis session a week ago that she could not make her follow or Monday dialysis appts., effectively missing two dialysis days. She states she is more SOB the past two days, non-exertional, and worse with laying flat, she describes some vague, sharp right breast pain that radiates to her mid sternum that has bothered her for two days, she states that the pain does not feel like her past heart attack, it apparently is worsened with inspiration and external palpation of the area of her right breast and sternum. No history of trauma. She was recently given a 10 day course ( which she states she completed) of antibiotic ( she thinks erythromycin but is unsure) by her PCP for a pus filled cyst located on the back of her scalp, apparently she thought it was red and swollen and she lanced it herself at home and states a lot of pus was exuded. PCP gave her abx for this. She states she saw vascular surgery yesterday outpatient and they wanted to bring her to the OR for debridement tomorrow of the right lower extremity/toes which she states have recently been more painful and red, she has history of toe amputations on this foot. In regards to her stool, she states there was no blood except a couple days last week she thought it looked black, she attributes this to "little orange pills they give me at dialysis", although this is the first time she states she noted black diarrhea. The diarrhea has continued to this morning and is now green/yellow and causes some vague abdominal discomfort with nausea, vomiting has subsided. She figured she should come in due to it not resolving for almost one week. Insulin-dependent diabetes,uncontrolled very brittle insulin changed to human 70/30 as it is noted that patient only takes 2 meals a day. also on dialysis days she has mostly one meal. dietary indiscretion, family brings her glucose tabs which she likes to chew on. Right foot metatarsal amputation with ulcerations. Wound culture from 10/29/2017 grew Enterococcus faecalis, Staphylococcus aureus, Corynebacteria. On IV vancomycin with dialysis. Dr. Stern is consulted. S/P wound dbridements. When patient ready to go home wound vac can be removed and can do foam dressing daily and prn. Patient has been refusing physical therapy. prn pain meds End-stage renal disease, on hemodialysis. We appreciate nephrology's assistance. Dialysis is on Monday, and Monday. refused dialysis on Monday02/03/18 with resultant hyperkalemia 02/04/18 s/p kayexalate and insulin for hyperglycemia. back back to back HD on 02/05 and 02/06 Clostridium (C) difficile colitis. S/P oral vancomycin treatment. The patient's stool is formed. COPD Had an exacerbation which has now resolved. off steroids now. Elevated liver function test. Medications reviewed. Patient refused liver ultrasound. Liver function is improving. Hypertension. The patient is on metoprolol, hydralazine, candesartan Dyslipidemia, on statin. Coronary artery disease, status post percutaneous coronary angioplasty ([employer]), on aspirin, Lipitor, Plavix. Systolic and diastolic CHF , secondary to ischemic cardiomyopathy. Ejection fraction (EF) of 15%. Fluid management through dialysis. Peripheral vascular disease, status post left below-knee amputation (BKA), status post multiple stent placement previously. smoker. Medical noncompliance. Deep vein thrombosis (DVT) prophylaxis, on heparin. VS,Fishbone, I+O VS, Fishbone, I+O Laboratory Tests 02/09/18 06:00 Red Blood Count 3.83 L, Mean Corpuscular Volume 79.1 L, Mean Corpuscular Hemoglobin 24.8 L, Mean Corpuscular Hemoglobin Concent 31.4 L, Red Cell Distribution Width 23.3 H, Neutrophils (%) (Auto) 72.1 H, Lymphocytes (%) (Auto) 12.8 L, Monocytes (%) (Auto) 9.4 H, Eosinophils (%) (Auto) 3.8 H, Basophils (%) (Auto) 0.7, Neutrophils # (Auto) 6.1, Lymphocytes # (Auto) 1.1 L, Monocytes # (Auto) 0.8, Eosinophils # (Auto) 0.3, Basophils # (Auto) 0.1, Calcium Level 8.2 L Vital Signs Date Time Temp Pulse Resp B/P (MAP) Pulse Ox O2 Delivery O2 Flow Rate FiO2 02/09/18 10:33 60 160/108 02/09/18 06:00 98.8 20 98 02/08/18 15:30 Room Air I&O- Last 24 Hours up to 6 AM 02/09/18 05:59 Intake Total 990 ml Output Total 4150 ml Balance -3160 ml JABIER BRANHAM MD Feb 09, 2018 11:58
[2018-02-09 14:00] VITALS: BP 157/65
[2018-02-09] MEDS: SENNA 8.6 MG TAB (SENOKOT) PO PRN (14:24)
[2018-02-09] MEDS: oxyCODONE 5MG TAB PO PRN (14:25)
[2018-02-09] MEDS: LACTULOSE 20 GM/30 ML SYRUP UD PO PRN (18:11)
[2018-02-09] MEDS: ATORVASTATIN 20 MG TAB PO SCH (20:54)
--- NOTE | 2018-02-09 21:26 | IPN ---
DATE: 02/08/2018 SUBJECTIVE: Patient seen and examined this morning at the bedside. Initially she was refusing hemodialysis treatment today but then she agreed. She was seen later in the afternoon on dialysis receiving her maintenance treatment. Her glucose is somewhat improved this morning. She complains of scabs on the arms. VITAL SIGNS: Temperature 98.0, pulse 55, respiratory rate 18, blood pressure 153/69, saturating 96% on room air. Intake yesterday was 1430. Patient refused weight on the bed scale today. General: She is seen on dialysis, awake, alert, in no acute distress. Extraocular muscles are intact. Tongue is moist. Right internal jugular (IJ) PermCath is in use. Cardiac: S1, S2 regular rate and rhythm. Lungs diminished at the bases, otherwise clear. Abdomen is soft and nontender. There are bowel sounds. Extremities: Show left [id number] amputation. Right foot with wound VAC. There is pitting edema in the peripheries. There are dressings on both of her arms. There is a right upper extremity fistula that is patent but not mature. LABORATORY: White count 8.1, hemoglobin 9.8. Sodium 130, potassium 5.2, glucose 334. INPATIENT MEDICATIONS: Her insulin was adjusted per the primary team. Remainder of medications are unchanged from prior. PROBLEMS: 1. End-stage renal disease - on hemodialysis on a Monday, , Monday schedule. Chronically noncompliant with dialysis, intermittently refuses dialysis as an inpatient as well and then needs Kayexalate as she is easily prone to hyperkalemia because of the renal failure and the poorly controlled diabetes. She is dialyzing via PermCath. Her right upper extremity has a patent but not mature fistula. Her volume status is improving. 2. Severe systolic congestive heart failure with ejection fraction 15% and also diastolic congestive heart failure. Still hypervolemic on exam but improving with dialysis and ultrafiltration. Counseled on fluid restriction. Her usual goal ultrafiltration is 3.5 to 4 liters per treatment, and she receives extra treatments for further ultrafiltration when she agrees. 3. Anemia related to chronic renal failure and inflammatory state. Continue Aranesp. There is no need for transfusion at present. Will check iron stores. 4. Hypertension. Blood pressures are acceptable and no changes are being made.
[2018-02-09 22:00] VITALS: BP 148/58
[2018-02-10 06:00] VITALS: BP 160/64
[2018-02-10] MEDS: HEPARIN SOD (PORCINE) 5000 UNITS/ML VIAL SQ SCH ×3 (06:25→21:26)
[2018-02-10] MEDS: FAMOTIDINE 20 MG TAB PO SCH (06:25)
[2018-02-10] MEDS: CANDESARTAN 4MG TABLET PO SCH (06:25)
[2018-02-10] MEDS: ALPRAZolam 0.5 MG TAB PO SCH ×3 (06:26→21:25)
[2018-02-10] MEDS: **hydrALAZINE** 10 MG TAB PO SCH ×3 (06:26→21:27)
[2018-02-10] MEDS: ASPIRIN 81 MG ENTERIC TAB PO SCH (06:26)
[2018-02-10] MEDS: guaiFENesin ER 600 MG TAB PO SCH ×2 (06:26→21:25)
[2018-02-10] MEDS: CLOPIDOGREL 75 MG TAB PO SCH (06:27)
[2018-02-10] MEDS: METOPROLOL TART 50 MG TAB PO SCH ×2 (06:27→21:26)
[2018-02-10] MEDS: SERTRALINE 100 MG TAB PO SCH (06:27)
[2018-02-10] MEDS: FLUTICASONE PROP 0.05% NASAL SPRAY 16 GM (FLONASE) SCH ×2 (06:28→21:00)
[2018-02-10] MEDS: NYSTATIN 100,000 UNITS/GM TOPICAL PWD 15 GM TOP SCH ×2 (06:28→21:00)
[2018-02-10 06:40] LABS: CALCIUM LEVEL 7.7 MG/DL (8.5-10.1); CREATININE FOR GFR 3.77 MG/DL (0.55-1.30); GLOMERULAR FILTRATION RATE 13.2 (>51); POTASSIUM SERUM 4.7 MEQ/L (3.5-5.1)
[2018-02-10] MEDS: HumuLIN (NovoLIN)70/30 INSULIN INJ PER UNIT SC SCH ×2 (06:54→18:51)
[2018-02-10] MEDS ORDERED: diphenhydrAMINE 25 MG CAP PO ONE (11:30)
--- NOTE | 2018-02-10 11:31 | IPN ---
DATE: 02/09/2018 SUBJECTIVE: Isabella is seen and examined this morning at the bedside. She says she ate her whole breakfast. Her glucose this morning on the chemistry was 40. Repeat was up to 127 this morning. Her wound vacuum-assisted closure (VAC) was removed from the foot and she now just has dressings on the wounds. She tolerated dialysis yesterday with 4 liters removed without any issue. VITAL SIGNS: 98.8, pulse 61, respiratory rate 20, blood pressure 137/65, saturating 98% on room air. Intake yesterday was 1 liter. Dialysis yesterday removed 4 liters. Net negative 3 liters. Weight in the bed scale today is 80 kg. General: Patient is seen lying in bed, drowsy but easily arousable. Disheveled female. Appears older than stated age. Extraocular muscles are intact. Tongue is moist. Right internal jugular (IJ) PermCath. Cardiac: S1, S2, regular rate and rhythm. Lungs: Diminished at the base, otherwise clear. Air entry comfortable on room air. Abdomen is soft and nontender. There are bowel sounds. The extremities that right foot no longer has a wound VAC. There is now a dressing over the metatarsal amputation site. The left lower extremity has a nsykh-[id number]-nllv-amputation. There is edema in the peripheries. There right upper extremity fistula is patent but not mature. Skin shows scattered superficial breakdown on the arms. LABS: White count 8.5. Hemoglobin 9.5. Sodium 136. Potassium 4.2. Transferrin saturation less than 10%, ferritin less than 150. INPATIENT MEDICATIONS: I added Venofer 100 mg IV with dialysis times 10 doses. Her insulin was adjusted again by the primary team. Remainder of medications are unchanged from prior. PROBLEMS: 1. End-stage renal disease on hemodialysis on Monday, , Monday schedule. Tolerating her treatment well and without issue. Has some ongoing hypervolemia on exam. Goal ultrafiltration for her treatments is between 3.5-4 liters per session. Volume status is improving. Her PermCath is in use. She will see Dr. Stern for further fistuloplasty as needed for the patent but not mature right upper extremity fistula. Next dialysis will be on Monday. 2. Anemia related to chronic renal failure, chronic inflammatory state and iron deficiency. Transferrin saturation was less than 10%, ferritin was less than 150. I have ordered 10 doses of Venofer to be given on dialysis, and she also continues on Aranesp. At present, there is no need for transfusion. 3. Severe systolic congestive heart failure (CHF) and diastolic congestive heart failure. Ejection fraction (EF) 15%. Hypervolemia is improving with the dialysis and ultrafiltration. Continue fluid restriction. 4. Right foot metatarsal amputation with ulcerations. I note that the wound VAC has been removed. She now has dressings. She continues with local wound care and is followed by vascular surgery and managed as well by the primary team. There is peripheral vascular disease underlying. She continues on aspirin, statin, and Plavix. 5. Hypertension. Blood pressures are acceptable and no changes are being made to her current regimen. 6. Insulin-dependent diabetes, uncontrolled and very brittle. Very significant fluctuation in her sugars. Primary team is adjusting insulin as needed.
[2018-02-10] MEDS ORDERED: HEPARIN 1,000 UNITS/ML 10ML VIAL (FOR RADIOLOGY& DIALYSIS ONLY) IV ONE (13:15)
[2018-02-10] MEDS ORDERED: HEPARIN 1,000 UNITS/ML 10ML VIAL (FOR RADIOLOGY& DIALYSIS ONLY) XX ONE (13:15)
[2018-02-10] MEDS ORDERED: ALTEPLASE 2 MG/2 ML VIAL (J2997 PER 1MG) XX ONE (14:00)
--- NOTE | 2018-02-10 14:35 | IPN ---
DATE: 02/10/2018 Patient is seen and examined at the bedside this morning. Patient was reporting that she is having itching all over the body. She is otherwise afebrile and hemodynamically stable. Today is patient's regular day of dialysis. OBJECTIVE: Vital signs: Temperature is 97.7 degrees Fahrenheit, blood pressure 160/64, pulse is 62, respiratory rate of 70, saturating 96% in room air. Intake and output: There is no urine output recorded. Weight on the bed scale is not available today. Yesterday she weighed 80 kg in the bed scale. PHYSICAL EXAMINATION: General: Patient is awake, alert, oriented times three. Sitting in the bed in no apparent distress. Head and Neck exam: Extraocular muscles intact. Pupils equal, round, and reactive to light. Mucous membranes are moist. Neck is supple. There is no jugular venous distention (JVD). She has a right internal jugular (IJ) tunnel hemodialysis catheter. Cardiovascular: S1, S2, regular rate. Trace edema of the right lower extremity. Respiratory: Chest is clear to auscultation bilaterally. Bilaterally good air entry. No rales or rhonchi. Abdomen: Soft, positive bowel sounds. Nontender. Musculoskeletal: She has left below knee amputation, right foot transmetatarsal amputation site has a dressing now. Right upper extremity has an arteriovenous fistula with positive thrill and bruit. 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 Power is 5/5 in bilateral upper extremities. Skin: Multiple excoriations are seen in bilateral lower extremities and upper extremities. LAB REVIEW: CBC showed a WBC of 8.5, hemoglobin 9.5 and these labs are from yesterday. This morning BMP showed sodium 133, potassium 4.7, chloride 98, bicarbonate 21, BUN 57, creatinine 3.7. CURRENT INPATIENT MEDICATIONS: Patients medications are all reviewed by me. She was given one dose of Benadryl 25 mg by mouth times one dose this morning. She was started on Venofer 100 mg IV with hemodialysis yesterday. No other changes in her medications today. ASSESSMENT/PLAN: 1. Endstage renal disease on hemodialysis: Patient's regular dialysis days are Monday, , Monday. Today the patient will be dialysis according to her regular schedule. Ultrafiltration goal will be around 4 liters as tolerated by her blood pressure. 2. Generalized itching: It might be secondary to her opioid pain medications. I have given her a dose of Benadryl 25 mg by mouth. 3. Severe systolic congestive heart failure: The patient has an ejection fraction (EF) of around 15%. Fluid management will be done with hemodialysis. Continue low dose of candesartan. Continue hydralazine 10 mg every 8 hours and metoprolol 50 mg by mouth twice a day. 4. Anemia secondary to iron deficiency and endstage renal disease: Patient's iron level is already low. She has been started on Venofer 100 mg IV with hemodialysis. Total of 10 doses. Continue current dose of Aranesp 100 mcg with hemodialysis. 5. Hypertension: Blood pressure is within the acceptable range. Continue current dose of candesartan 2 mg by mouth daily, hydralazine 10 mg every 8 hours, metoprolol 50 mg by mouth twice a day. 6. Hyponatremia: Patient has hypervolemic, hyponatremia. Sodium level is expected to improve with hemodialysis.
[2018-02-10] MEDS: ATORVASTATIN 20 MG TAB PO SCH (21:25)
[2018-02-10 22:00] VITALS: BP 150/58
[2018-02-11] MEDS: HEPARIN SOD (PORCINE) 5000 UNITS/ML VIAL SQ SCH ×3 (05:58→21:22)
[2018-02-11] MEDS: **hydrALAZINE** 10 MG TAB PO SCH ×3 (05:58→21:21)
[2018-02-11 06:00] VITALS: BP 152/65
--- NOTE | 2018-02-11 06:46 | IPNPDOC ---
Text Note Date of Service The patient was seen on 02/10/18. NOTE SUBJECTIVE: Still sleeping this am . wants to be left alone. Yesterday also she slept most of the day and as per nurses she had some episodes of hallucination. In view of different bottles found again she is probably self medicating herself with this abnormal mental status. Unsure how she is getting this medications as bottles have been taken from her before also. My concern is whether her visitors are bringing her medications or not. She did refill norco 10/325 120 tabs on january 03 and alprazolam 90 tabs also. So may be her is getting her home medications brought. OBJECTIVE: VITAL SIGNS: Listed below. GENERAL: No sign of acute distress, alert and oriented times three. HEENT: Normocephalic, atraumatic. Extraocular motor grossly intact. CARDIOVASCULAR: Positive S1, S2, regular rate. LUNGS: diminished. bilateral crackles. ABDOMEN: Soft, nontender, nondistended. Bowel sounds present. EXTREMITIES: Left below-knee amputation. Right lower extremity with wound vac LABORATORY DATA: Listed below. ASSESSMENT AND PLAN:Ms. Ibarra is a 57 y/o female with past medical history of DM2, CAD s/p stenting, PVD s/p left BKA, COPD, HTN and ESRD on HD T,R,Sa. non-compliant with dialysis who presents to the ED with complaints of SOB for the past two days, diarrhea and nausea. The patient states that she went to her dialysis session last Monday and the following day woke up with profuse diarrhea and vomiting of bile, she did have a fever of 103.0. This is not u nusual for her, she states she always has diarrhea and vomiting the day after a dialysis treatment. Denies recent travel or sick contacts, no muscle aches, chills or night sweats. However, she was so weak after this particular dialysis session a week ago that she could not make her follow or Monday dialysis appts., effectively missing two dialysis days. She states she is more SOB the past two days, non-exertional, and worse with laying flat, she describes some vague, sharp right breast pain that radiates to her mid sternum that has bothered her for two days, she states that the pain does not feel like her past heart attack, it apparently is worsened with inspiration and external palpation of the area of her right breast and sternum. No history of trauma. She was recently given a 10 day course ( which she states she completed) of antibiotic ( she thinks erythromycin but is unsure) by her PCP for a pus filled cyst located on the back of her scalp, apparently she thought it was red and swollen and she lanced it herself at home and states a lot of pus was exuded. PCP gave her abx for this. She states she saw vascular surgery yesterday outpatient and they wanted to bring her to the OR for debridement tomorrow of the right lower extremity/toes which she states have recently been more painful and red, she has history of toe amputations on this foot. In regards to her stool, she states there was no blood except a couple days last week she thought it looked black, she attributes this to "little orange pills they give me at dialysis", although this is the first time she states she noted black diarrhea. The diarrhea has continued to this morning and is now green/yellow and causes some vague abdominal discomfort with nausea, vomiting has subsided. She figured she should come in due to it not resolving for almost one week. Insulin-dependent diabetes,uncontrolled very brittle insulin changed to human 70/30 as it is noted that patient only takes 2 meals a day. also on dialysis days she has mostly one meal. dietary indiscretion, family brings her glucose tabs which she likes to chew on. Right foot metatarsal amputation with ulcerations. Wound culture from 10/29/2017 grew Enterococcus faecalis, Staphylococcus aureus, Corynebacteria. On IV vancomycin with dialysis. Dr. Stern is consulted. S/P wound dbridements. When patient ready to go home wound vac can be removed and can do foam dressing daily and prn. Patient has been refusing physical therapy. prn pain meds End-stage renal disease, on hemodialysis. We appreciate nephrology's assistance. Dialysis is on Monday, and Monday. refused dialysis on Monday02/03/18 with resultant hyperkalemia 02/04/18 s/p kayexalate and insulin for hyperglycemia. back back to back HD on 02/05 and 02/06 Clostridium (C) difficile colitis. S/P oral vancomycin treatment. The patient's stool is formed. COPD Had an exacerbation which has now resolved. off steroids now. Elevated liver function test. Medications reviewed. Patient refused liver ultrasound. Liver function is improving. Hypertension. The patient is on metoprolol, hydralazine, candesartan Dyslipidemia, on statin. 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 Systolic and diastolic CHF , secondary to ischemic cardiomyopathy. Ejection fraction (EF) of 15%. Fluid management through dialysis. Peripheral vascular disease, status post left below-knee amputation (BKA), status post multiple stent placement previously. smoker. Medical noncompliance. Deep vein thrombosis (DVT) prophylaxis, on heparin. VS,Fishbone, I+O VS, Fishbone, I+O Laboratory Tests 02/10/18 05:51 Calcium Level 7.7 L Vital Signs Date Time Temp Pulse Resp B/P (MAP) Pulse Ox O2 Delivery O2 Flow Rate FiO2 02/10/18 06:27 64 160/64 02/10/18 06:00 97.7 17 96 Room Air I&O- Last 24 Hours up to 6 AM 02/10/18 06:00 Intake Total 640 ml Output Total 0 ml Balance 640 ml JABIER BRANHAM MD Feb 10, 2018 08:37
[2018-02-11 06:50] LABS: CALCIUM LEVEL 7.6 MG/DL (8.5-10.1); CREATININE FOR GFR 3.27 MG/DL (0.55-1.30); GLOMERULAR FILTRATION RATE 15.6 (>51); POTASSIUM SERUM 4.3 MEQ/L (3.5-5.1)
[2018-02-11] MEDS: HumuLIN (NovoLIN)70/30 INSULIN INJ PER UNIT SC SCH ×2 (07:50→17:30)
[2018-02-11] MEDS: FAMOTIDINE 20 MG TAB PO SCH (09:00)
[2018-02-11] MEDS: CANDESARTAN 4MG TABLET PO SCH (09:00)
[2018-02-11] MEDS: METOPROLOL TART 50 MG TAB PO SCH ×2 (09:00→21:20)
[2018-02-11] MEDS: CLOPIDOGREL 75 MG TAB PO SCH (09:00)
[2018-02-11] MEDS: ALPRAZolam 0.5 MG TAB PO SCH ×3 (09:00→21:20)
[2018-02-11] MEDS: ASPIRIN 81 MG ENTERIC TAB PO SCH (09:00)
[2018-02-11] MEDS: SERTRALINE 100 MG TAB PO SCH (09:00)
[2018-02-11] MEDS: FLUTICASONE PROP 0.05% NASAL SPRAY 16 GM (FLONASE) SCH ×2 (09:00→21:20)
[2018-02-11] MEDS: guaiFENesin ER 600 MG TAB PO SCH ×2 (09:00→21:20)
[2018-02-11] MEDS: NYSTATIN 100,000 UNITS/GM TOPICAL PWD 15 GM TOP SCH ×2 (09:00→21:21)
[2018-02-11] MEDS: oxyCODONE 5MG TAB PO PRN (10:08)
[2018-02-11] MEDS: ANEXSIA, NORCO 7.5MG/325MG TABLET(HYDROCODONE/APAP) PO PRN (13:27)
[2018-02-11 14:00] VITALS: BP 165/69
[2018-02-11] MEDS ORDERED: diphenhydrAMINE 25 MG CAP PO ONE (16:30)
[2018-02-11] MEDS: ATORVASTATIN 20 MG TAB PO SCH (21:17)
[2018-02-11 22:00] VITALS: BP 138/58
[2018-02-12] MEDS: HEPARIN SOD (PORCINE) 5000 UNITS/ML VIAL SQ SCH ×3 (05:10→21:26)
[2018-02-12] MEDS: **hydrALAZINE** 10 MG TAB PO SCH ×3 (05:10→21:27)
[2018-02-12 06:00] VITALS: BP 152/57
[2018-02-12 06:59] LABS: CALCIUM LEVEL 7.7 MG/DL (8.5-10.1); CREATININE FOR GFR 3.9 MG/DL (0.55-1.30); GLOMERULAR FILTRATION RATE 12.7 (>51); POTASSIUM SERUM 4.4 MEQ/L (3.5-5.1)
[2018-02-12] MEDS: HumuLIN (NovoLIN)70/30 INSULIN INJ PER UNIT SC SCH ×3 (07:30→18:34)
--- NOTE | 2018-02-12 08:45 | IPNPDOC ---
Text Note Date of Service The patient was seen on 02/11/18. NOTE SUBJECTIVE:Sugars better controlled yesterday. However Patient slept most of the day and had only hospital food. Her wound looks a litlle macerated today. will ask Dr Stern to evaluate OBJECTIVE: VITAL SIGNS: Listed below. GENERAL: No sign of acute distress, alert and oriented times three. HEENT: Normocephalic, atraumatic. Extraocular motor grossly intact. CARDIOVASCULAR: Positive S1, S2, regular rate. LUNGS: diminished. bilateral crackles. ABDOMEN: Soft, nontender, nondistended. Bowel sounds present. EXTREMITIES: Left below-knee amputation. Right lower extremity with wound vac LABORATORY DATA: Listed below. ASSESSMENT AND PLAN:Ms. Ibarra is a 57 y/o female with past medical history of DM2, CAD s/p stenting, PVD s/p left BKA, COPD, HTN and ESRD on HD T,R,Sa. non-compliant with dialysis who presents to the ED with complaints of SOB for the past two days, diarrhea and nausea. The patient states that she went to her dialysis session last Monday and the following day woke up with profuse diarrhea and vomiting of bile, she did have a fever of 103.0. This is not unusual for her, she states she always has diarrhea and vomiting the day after a dialysis treatment. Denies recent travel or sick contacts, no muscle aches, chills or night sweats. However, she was so weak after this particular dialysis session a week ago that she could not make her follow or Monday dialysis appts., effectively missing two dialysis days. She states she is more SOB the past two days, non-exertional, and worse with laying flat, she describes some vague, sharp right breast pain that radiates to her mid sternum that has bothered her for two days, she states that the pain does not feel like her past heart attack, it apparently is worsened with inspiration and external palpation of the area of her right breast and sternum. No history of trauma. She was recently given a 10 day course ( which she states she completed) of antibiotic ( she thinks erythromycin but is unsure) by her PCP for a pus filled cyst located on the back of her scalp, apparently she thought it was red and swollen and she lanced it herself at home and states a lot of pus was exuded. PCP gave her abx for this. She states she saw vascular surgery yesterday outpatient and they wanted to bring her to the OR for debridement tomorrow of the right lower extremity/toes which she states have recently been more painful and red, she has history of toe amputations on this foot. In regards to her stool, she states there was no blood except a couple days last week she thought it looked black, she attributes this to "little orange pills they give me at dialysis", although this is the first time she states she noted black diarrhea. The diarrhea has continued to this morning and is now green/yellow and causes some vague abdominal discomfort with nausea, vomiting has subsided. She figured she should come in due to it not resolving for almost one week. Insulin-dependent diabetes,uncontrolled very brittle insulin changed to human 70/30 as it is noted that patient only takes 2 meals a day. also on dialysis days she has mostly one meal. dietary indiscretion, family brings her glucose tabs which she likes to chew on. Right foot metatarsal amputation with ulcerations. Wound culture from 10/29/2017 grew Enterococcus faecalis, Staphylococcus aureus, Corynebacteria. On IV vancomycin with dialysis. Dr. Stern is consulted. S/P wound dbridements. continue foam dressing. Patient has been refusing physical therapy. prn pain meds End-stage renal disease, on hemodialysis. We appreciate nephrology's assistance. Often refuses treatment. Clostridium (C) difficile colitis. S/P oral vancomycin treatment. The patient's stool is formed. COPD Had an exacerbation which has now resolved. off steroids now. Elevated liver function test. Medications reviewed. Patient refused liver ultrasound. Hypertension. The patient is on metoprolol, hydralazine, candesartan Dyslipidemia, on statin. 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 Systolic and diastolic CHF , secondary to ischemic cardiomyopathy. Ejection fraction (EF) of 15%. Fluid management through dialysis. Peripheral vascular disease, status post left below-knee amputation (BKA), status post multiple stent placement previously. smoker. Medical noncompliance. Deep vein thrombosis (DVT) prophylaxis, on heparin. VS,Fishbone, I+O VS, Fishbone, I+O Vital Signs Date Time Temp Pulse Resp B/P (MAP) Pulse Ox O2 Delivery O2 Flow Rate FiO2 02/11/18 05:58 152/60 02/10/18 22:00 97.7 69 18 95 Room Air I&O- Last 24 Hours up to 6 AM 02/11/18 06:00 Intake Total 900 ml Output Total 4000 ml Balance -3100 ml JABIER BRANHAM MD Feb 11, 2018 06:49
[2018-02-12] MEDS: CANDESARTAN 4MG TABLET PO SCH (08:47)
[2018-02-12] MEDS: SERTRALINE 100 MG TAB PO SCH (08:47)
[2018-02-12] MEDS: FAMOTIDINE 20 MG TAB PO SCH (08:48)
[2018-02-12] MEDS: ASPIRIN 81 MG ENTERIC TAB PO SCH (08:48)
[2018-02-12] MEDS: ALPRAZolam 0.5 MG TAB PO SCH ×3 (08:48→21:27)
[2018-02-12] MEDS: guaiFENesin ER 600 MG TAB PO SCH ×2 (08:48→21:27)
[2018-02-12] MEDS: METOPROLOL TART 50 MG TAB PO SCH ×2 (08:48→21:27)
[2018-02-12] MEDS: CLOPIDOGREL 75 MG TAB PO SCH (08:49)
[2018-02-12] MEDS: FLUTICASONE PROP 0.05% NASAL SPRAY 16 GM (FLONASE) SCH ×2 (08:49→21:28)
[2018-02-12] MEDS: NYSTATIN 100,000 UNITS/GM TOPICAL PWD 15 GM TOP SCH ×2 (08:50→21:27)
[2018-02-12] MEDS: ANEXSIA, NORCO 7.5MG/325MG TABLET(HYDROCODONE/APAP) PO PRN ×2 (10:11→18:35)
--- NOTE | 2018-02-12 10:59 | IPNPDOC ---
Text Note Date of Service The patient was seen on 02/12/18. NOTE SUBJECTIVE: Last 3 days patient did not have any severe hyperglycemia or hyp oglycemia episodes. This am she is her usual self not sleepy or confused. going for HD today. Wound care changed today as the optifoam may be making it a little macerated around the edges. OBJECTIVE: VITAL SIGNS: Listed below. GENERAL: No sign of acute distress, alert and oriented times three. HEENT: Normocephalic, atraumatic. Extraocular motor grossly intact. CARDIOVASCULAR: Positive S1, S2, regular rate. LUNGS: diminished. bilateral crackles. ABDOMEN: Soft, nontender, nondistended. Bowel sounds present. EXTREMITIES: Left below-knee amputation. Right lower extremity with wound vac LABORATORY DATA: Listed below. ASSESSMENT AND PLAN:Ms. Ibarra is a 57 y/o female with past medical history of DM2, CAD s/p stenting, PVD s/p left BKA, COPD, HTN and ESRD on HD T,R,Sa. non-compliant with dialysis who presents to the ED with complaints of SOB for the past two days, diarrhea and nausea. The patient states that she went to her dialysis session last Monday and the following day woke up with profuse diarrhea and vomiting of bile, she did have a fever of 103.0. This is not unusual for her, she states she always has diarrhea and vomiting the day after a dialysis treatment. Denies recent travel or sick contacts, no muscle aches, chills or night sweats. However, she was so weak after this particular dialysis session a week ago that she could not make her follow or Monday dialysis appts., effectively missing two dialysis days. She states she is more SOB the past two days, non-exertional, and worse with laying flat, she describes some vague, sharp right breast pain that radiates to her mid sternum that has bothered her for two days, she states that the pain does not feel like her past heart attack, it apparently is worsened with inspiration and external palpation of the area of her right breast and sternum. No history of trauma. She was recently given a 10 day course ( which she states she completed) of antibiotic ( she thinks erythromycin but is unsure) by her PCP for a pus filled cyst located on the back of her scalp, apparently she thought it was red and swollen and she lanced it herself at home and states a lot of pus was exuded. PCP gave her abx for this. She states she saw vascular surgery yesterday outpatient and they wanted to bring her to the OR for debridement tomorrow of the right lower extremity/toes which she states have recently been more painful and red, she has history of toe amputations on this foot. In regards to her stool, she states there was no blood except a couple days last week she thought it looked black, she attributes this to "little orange pills they give me at dialysis", although this is the first time she states she noted black diarrhea. The diarrhea has continued to this morning and is now green/yellow and causes some vague abdominal discomfort with nausea, vomiting has subsided. She figured she should come in due to it not resolving for almost one week. Insulin-dependent diabetes,uncontrolled very brittle insulin changed to human 70/30 as it is noted that patient only takes 2 meals a day. also on dialysis days she has mostly one meal. dietary indiscretion, family brings her glucose tabs which she likes to chew on. FS before lunch and dinner and prn is too sedated or nonresponsive. Right foot metatarsal amputation with ulcerations. Wound culture from 10/29/2017 grew Enterococcus faecalis, Staphylococcus aureus, Corynebacteria. On IV vancomycin with dialysis. Dr. Stern is consulted. S/P wound dbridements. continue dressing with dakin krystal wet to dry q [address] Stern to reevaluate the wound. prn pain meds End-stage renal disease, on hemodialysis. We appreciate nephrology's assistance. Often refuses treatment. Clostridium (C) difficile colitis. treated. S/P oral vancomycin treatment. The patient's stool is formed. COPD Had an exacerbation which has now resolved. off steroids now. Elevated liver function test. Medications reviewed. Patient refused liver ultrasound. Hypertension. The patient is on metoprolol, hydralazine, candesartan Dyslipidemia, on statin. 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 Systolic and diastolic CHF , secondary to ischemic cardiomyopathy. Ejection fraction (EF) of 15%. Fluid management through dialysis. Peripheral vascular disease, status post left below-knee amputation (BKA), status post multiple stent placement previously. smoker. Medical noncompliance. Deep vein thrombosis (DVT) prophylaxis, on heparin. VS,Fishbone, I+O VS, Fishbone, I+O Laboratory Tests 02/12/18 06:05 Calcium Level 7.7 L Vital Signs Date Time Temp Pulse Resp B/P (MAP) Pulse Ox O2 Delivery O2 Flow Rate FiO2 02/12/18 10:11 18 02/12/18 08:48 70 140/62 02/12/18 06:00 97.0 96 Room Air I&O- Last 24 Hours up to 6 AM 02/12/18 06:00 Intake Total 1200 ml Output Total 0 ml Balance 1200 ml JABIER BRANHAM MD Feb 12, 2018 10:59
[2018-02-12 14:00] VITALS: BP 138/58
--- NOTE | 2018-02-12 17:18 | IPN ---
DATE: 02/11/2018 SUBJECTIVE: The patient was seen and examined at the bedside today morning. She was dialyzed yesterday. She tolerated the hemodialysis procedure well. Four liters of fluid was removed. She reports pain in her foot, otherwise she denies any active complaints. OBJECTIVE: VITAL SIGNS: Temperature is 99.2 degrees Fahrenheit, blood pressure 158/68, pulse is 68, respiratory rate of 18, saturating 96% in room air. Intake and output: Urine output is not recorded. Ultrafiltration with hemodialysis was 4 liters. Weight in the bed scale is 76.9 kg. PHYSICAL EXAMINATION: GENERAL: Patient is awake, alert, oriented times three, sitting in the sofa, no apparent distress. HEAD AND NECK EXAM: Extraocular muscles intact. Pupils equally round and reactive to light. Mucous membranes are moist. Neck is supple. There is no jugular venous distention (JVD). She has a right internal jugular (IJ) tunneled hemodialysis catheter. CARDIOVASCULAR: S1, S2, regular rate. Trace edema of the right lower extremity. RESPIRATORY: Chest is clear to auscultation bilaterally. Bilaterally equal air entry. No rales or rhonchi. ABDOMEN: Soft, positive bowel sounds, nontender. MUSCULOSKELETAL: She has a left below knee amputation. Right foot transmetatarsal amputation site is covered with a dressing. Right upper arm has an arteriovenous (AV) fistula with thrill and bruit. CENTRAL NERVOUS SYSTEM (GLOST PLACER): No focal deficit. Power is 5/5 in bilateral upper extremities. LABORATORY REVIEW: BMP showed sodium 134, potassium 4.3, chloride 101, bicarbonate 23, BUN 41, creatinine 3.2, calcium 7.6. CURRENT INPATIENT MEDICATIONS: Patients medications were all reviewed by me. There is no change in the medications today as compared with yesterday. ASSESSMENT/PLAN: 1. End-stage renal disease on hemodialysis. Patient was dialyzed yesterday according to her regular schedule. Next hemodialysis will be on 02/13/2018. 2. Chronic systolic congestive heart failure. Volume status is being optimized with hemodialysis. Continue current dose of candesartan, hydralazine, and metoprolol. 3. Anemia secondary to iron deficiency and end-stage renal disease. Continue Venofer with hemodialysis. Continue current dose of Aranesp 100 mcg with dialysis. 4. Hypertension. Blood pressure is acceptable. Continue current dose of candesartan, hydralazine, and metoprolol. 5. Right foot transmetatarsal amputation site infection. Patient is getting wound debridements by vascular surgery.
[2018-02-12] MEDS: ATORVASTATIN 20 MG TAB PO SCH (21:26)
[2018-02-12 22:00] VITALS: BP 150/70
[2018-02-12] MEDS: oxyCODONE 5MG TAB PO PRN (22:11)
--- NOTE | 2018-02-13 01:07 | IPN ---
DATE: 02/12/2018 SUBJECTIVE: The patient was seen and examined at the bedside today morning. She was getting right foot dressing done when I saw her. She denies any active complaints. She is afebrile, hemodynamically stable. OBJECTIVE: VITAL SIGNS: Temperature is 97 degrees Fahrenheit, blood pressure 140/62, pulse is 70, respiratory rate of 17, saturating 96% on room air. Intake and output: Urine output recorded as 200 mL. Weight in the bed scale is 78.6 kg. PHYSICAL EXAMINATION: The patient is awake, alert, oriented times three, laying in bed, in no apparent distress. HEAD AND NECK EXAM: Extraocular muscles intact. Pupils equally round and reactive to light. Mucous membranes are moist. Neck is supple. There is no jugular venous distension (JVD). Right internal jugular tunnel hemodialysis catheter was noted. CARDIOVASCULAR: S1, S2 regular rate. Trace edema of the right lower extremity. RESPIRATORY: Chest is clear to auscultation bilaterally. Bilateral equal air entry. No rales or rhonchi. ABDOMEN: Soft. Positive bowel sounds. Nontender. MUSCULOSKELETAL: Left below knee amputation. Right foot transmetatarsal site amputation site is being dressed at this point. CENTRAL NERVOUS SYSTEM: No focal deficit. Power is 5/5 in bilateral upper extremities. LABORATORY REVIEW: Complete blood count (CBC) and basic metabolic panel (BMP) are from yesterday. There are no labs done today. INPATIENT MEDICATIONS: The patient's medications are all reviewed by me. There is no change in the medications today as compared with yesterday. ASSESSMENT AND PLAN: 1. End-stage renal disease on hemodialysis. The patient's regular dialysis days are Monday, , Monday. She will be dialyzed tomorrow morning as per her regular schedule. 2. Chronic systolic congestive heart failure. Volume status is being managed with dialysis. Continue current dose of candesartan, metoprolol and hydralazine. Ultrafiltration goal will be around 4 liters as tolerated by blood pressure. 3. Anemia secondary to end-stage renal disease and iron deficiency. Continue Venofer and Aranesp with hemodialysis. 4. Hypertension with hypertensive heart disease. Continue current dose of candesartan 2 mg, hydralazine 10 mg every 8 hours and metoprolol 50 mg by mouth twice a day. 5. Infected right foot transmetatarsal amputation site. The patient is getting dressings done. Antibiotics have been stopped now.
[2018-02-13 06:00] VITALS: BP 138/74
[2018-02-13] MEDS: CANDESARTAN 4MG TABLET PO SCH (06:20)
[2018-02-13] MEDS: SENNA 8.6 MG TAB (SENOKOT) PO PRN (06:20)
[2018-02-13] MEDS: CLOPIDOGREL 75 MG TAB PO SCH (06:21)
[2018-02-13] MEDS: METOPROLOL TART 50 MG TAB PO SCH ×2 (06:21→22:13)
[2018-02-13] MEDS: guaiFENesin ER 600 MG TAB PO SCH ×2 (06:21→22:13)
[2018-02-13] MEDS: HEPARIN SOD (PORCINE) 5000 UNITS/ML VIAL SQ SCH ×3 (06:21→22:12)
[2018-02-13] MEDS: ANEXSIA, NORCO 7.5MG/325MG TABLET(HYDROCODONE/APAP) PO PRN ×2 (06:22→15:00)
[2018-02-13] MEDS: SERTRALINE 100 MG TAB PO SCH (06:22)
[2018-02-13] MEDS: ASPIRIN 81 MG ENTERIC TAB PO SCH (06:22)
[2018-02-13] MEDS: NYSTATIN 100,000 UNITS/GM TOPICAL PWD 15 GM TOP SCH ×2 (06:23→22:13)
[2018-02-13] MEDS: **hydrALAZINE** 10 MG TAB PO SCH ×3 (06:23→22:13)
[2018-02-13] MEDS: ALPRAZolam 0.5 MG TAB PO SCH ×3 (06:23→22:13)
[2018-02-13] MEDS: FLUTICASONE PROP 0.05% NASAL SPRAY 16 GM (FLONASE) SCH ×2 (06:24→22:14)
[2018-02-13] MEDS: FAMOTIDINE 20 MG TAB PO SCH (06:25)
[2018-02-13] MEDS: HumuLIN (NovoLIN)70/30 INSULIN INJ PER UNIT SC SCH ×2 (07:30→17:14)
[2018-02-13 07:53] LABS: ALBUMIN 2.3 GM/DL (3.2-5.2); BILIRUBIN,DIRECT 0.2 MG/DL (0.0-0.2); BILIRUBIN,TOTAL 0.7 MG/DL (0.2-1.0); CALCIUM LEVEL 8.1 MG/DL (8.5-10.1); CREATININE FOR GFR 4.59 MG/DL (0.55-1.30); GLOMERULAR FILTRATION RATE 10.5 (>51); POTASSIUM SERUM 4.7 MEQ/L (3.5-5.1); TOTAL PROTEIN 6.4 GM/DL (6.4-8.2)
[2018-02-13] MEDS ORDERED: HEPARIN 1,000 UNITS/ML 10ML VIAL (FOR RADIOLOGY& DIALYSIS ONLY) IV ONE (10:45)
[2018-02-13] MEDS ORDERED: HEPARIN 1,000 UNITS/ML 10ML VIAL (FOR RADIOLOGY& DIALYSIS ONLY) XX ONE (10:45)
[2018-02-13 14:00] VITALS: BP 130/70
--- NOTE | 2018-02-13 14:50 | IPNPDOC ---
Text Note Date of Service The patient was seen on 02/13/18. NOTE Subjective: No acute changes overnight. Objective: Vitals: (see below) General: No acute distress, laying comfortably in bed. HEENT: Moist mucous membranes. Neck: No JVD or lymphadenopathy Cardiac: RRR, No murmurs Pulm: Diminished breath sounds at the bases b/l. No wheezing, rhonchi Abd: NT/ND + BS Ext: No edema or cyanosis. sp L BKA. RLE with wound. Labs (see below) Assessment/Plan 1. IDDM - BS better controlled on Insulin 70/30. Consistent carb diet. SSI. 2. Right foot metatarsal amputation with ulcers - would cx with Enterococcus faecalis, Staphylococcus aureus, Corynebacteria. On IV vancomycin with dialysis. Dr. Stern on consult. s/p wound debridement 3. ESRD on HD. appreciate nephro input. 4. S/p c diff colitis 5. s/p copd exacerbation 6. HTN controlled. cont current meds 7. H/o CAD s/p PCI on asa/plavix/statin 8. ICM - systolic/diastolic HF EF 15% - on HD. Cont current meds 9. PAS s/p L BKA, perviously s/p multiple stent placement. 10. Medical noncompliance complicating care. DVT prophy:Hep SQ VS,Fishbone, I+O VS, Fishbone, I+O Laboratory Tests 02/13/18 06:58 Vital Signs Date Time Temp Pulse Resp B/P (MAP) Pulse Ox O2 Delivery O2 Flow Rate FiO2 02/13/18 14:00 98.7 67 16 130/70 (90) 97 Room Air I&O- Last 24 Hours up to 6 AM 02/13/18 05:59 Intake Total 1980 ml Output Total 400 ml Balance 1580 ml KIKE JOEL MD Feb 13, 2018 14:50
[2018-02-13] MEDS: ONDANSETRON 4 MG ORAL DISINTEGRATING TAB (Q0162 PER 1MG) PO PRN (15:00)
--- NOTE | 2018-02-13 15:58 | IPN ---
DATE: 02/13/2018 SUBJECTIVE: Patient was seen and examined at the bedside today morning during hemodialysis procedure. She is tolerating hemodialysis procedure well. She denies any active complaints. OBJECTIVE: VITAL SIGNS: Temperature 99 degrees Fahrenheit, blood pressure 138/74, pulse 60, respiratory rate 18, saturating 94% on room air. INTAKE AND OUTPUT: Urine output is not recorded. Weight in the bed scale was 78.6 kg yesterday. PHYSICAL EXAMINATION: GENERAL: Patient is awake, alert and oriented times three, laying in bed, getting hemodialysis done. HEAD AND NECK EXAMINATION: Extraocular muscles intact. Pupils equally round and reactive to light. Mucous membranes are moist. Neck is supple. She has a right internal jugular (IJ) tunneled hemodialysis catheter, which is being used for dialysis. CARDIOVASCULAR: S1, S2. Regular rate. Trace edema of the right lower extremity. RESPIRATORY: Chest is clear to auscultation bilaterally. Bilateral equal air entry. No rales or rhonchi. ABDOMEN: Soft. Positive bowel sounds. Nontender. MUSCULOSKELETAL: She has a left below knee amputation and right foot transmetatarsal amputation site has a dressing. CENTRAL NERVOUS SYSTEM: No focal deficits. Power is 5/5 in bilateral upper extremities. LABORATORY REVIEW: Basic metabolic panel (BMP) showed sodium 133, potassium 4.7, chloride 100, bicarbonate 21, BUN 58, creatinine 4.59. Albumin 2.3. CURRENT INPATIENT MEDICATIONS: Patient's medications are all reviewed by me. No change in the medications today as compared with yesterday. ASSESSMENT AND PLAN: 1. End-stage renal disease on hemodialysis. Patient is being dialyzed today according to her regular Monday, , Monday schedule. Ultrafiltration goal will be 4 liters, as tolerated by her blood pressure. 2. Chronic systolic congestive heart failure. Continue metoprolol, hydralazine and candesartan. Volume status is being optimized with dialysis. 3. Hypertension with hypertensive heart disease. Continue current dose of candesartan 2 mg daily, hydralazine 10 mg every 8 hours and metoprolol 50 mg by mouth twice a day. 4. Anemia secondary to end-stage renal disease. Hemoglobin on the latest lab is 9.5. Continue current dose of Venofer with dialysis and Aranesp 100 mcg with dialysis once a week.
[2018-02-13 22:00] VITALS: BP 149/55
[2018-02-13] MEDS: ATORVASTATIN 20 MG TAB PO SCH (22:12)
[2018-02-14 06:00] VITALS: BP 154/67
[2018-02-14 06:43] LABS: CALCIUM LEVEL 7.6 MG/DL (8.5-10.1); CREATININE FOR GFR 3.61 MG/DL (0.55-1.30); GLOMERULAR FILTRATION RATE 13.9 (>51); POTASSIUM SERUM 4.4 MEQ/L (3.5-5.1)
[2018-02-14] MEDS: HEPARIN SOD (PORCINE) 5000 UNITS/ML VIAL SQ SCH ×3 (06:44→22:20)
[2018-02-14] MEDS: **hydrALAZINE** 10 MG TAB PO SCH ×3 (06:45→22:19)
[2018-02-14] MEDS: ANEXSIA, NORCO 7.5MG/325MG TABLET(HYDROCODONE/APAP) PO PRN ×2 (06:46→20:45)
[2018-02-14] MEDS: ASPIRIN 81 MG ENTERIC TAB PO SCH (08:19)
[2018-02-14] MEDS: ALPRAZolam 0.5 MG TAB PO SCH ×3 (08:19→20:45)
[2018-02-14] MEDS: HumuLIN (NovoLIN)70/30 INSULIN INJ PER UNIT SC SCH (08:19)
[2018-02-14] MEDS: CLOPIDOGREL 75 MG TAB PO SCH (08:19)
[2018-02-14] MEDS: SERTRALINE 100 MG TAB PO SCH (08:19)
[2018-02-14] MEDS: guaiFENesin ER 600 MG TAB PO SCH ×2 (08:19→20:46)
[2018-02-14] MEDS: CANDESARTAN 4MG TABLET PO SCH (08:19)
[2018-02-14] MEDS: FAMOTIDINE 20 MG TAB PO SCH (08:19)
[2018-02-14] MEDS: METOPROLOL TART 50 MG TAB PO SCH ×2 (08:22→20:46)
[2018-02-14] MEDS: FLUTICASONE PROP 0.05% NASAL SPRAY 16 GM (FLONASE) SCH ×2 (08:23→20:47)
[2018-02-14] MEDS: NYSTATIN 100,000 UNITS/GM TOPICAL PWD 15 GM TOP SCH ×2 (08:24→20:47)
--- NOTE | 2018-02-14 11:42 | IPN ---
DATE: 02/14/2018 SUBJECTIVE: Patient was seen and examined at the bedside today morning. The patient reports that her right foot wound is having throbbing pain. She was dialyzed yesterday. She tolerated the hemodialysis and fluid removal well. 4 liters of fluid was removed. She was otherwise afebrile and hemodynamically stable. OBJECTIVE: VITAL SIGNS: Temperature 97.5 degrees Fahrenheit, blood pressure 145/62, pulse 76, respiratory rate 18, saturating 97% on room air. INTAKE AND OUTPUT: There is no urine output recorded. Fluid removal with dialysis was 4 liters yesterday. She has been refusing the bed scale weight for last two days. PHYSICAL EXAMINATION: GENERAL: Patient is awake, alert and oriented times three, laying in bed, in mild painful distress. HEAD AND NECK EXAMINATION: Extraocular muscles intact. Pupils equally round and reactive to light. Mucous membranes are moist. Neck is supple. She has a right internal jugular (IJ) tunneled dialysis catheter. CARDIOVASCULAR: S1, S2. Regular rate. Trace edema of the right lower extremity. RESPIRATORY: Chest is clear to auscultation bilaterally. Bilateral equal air entry. No rales or rhonchi. ABDOMEN: Soft. Positive bowel sounds. Nontender. No organomegaly. MUSCULOSKELETAL: She has a left below knee amputation and right foot transmetatarsal amputation site with a dressing and there is mild erythema close to the wound. CENTRAL NERVOUS SYSTEM: No focal deficits. Power is 5/5 in bilateral upper extremities. LABORATORY REVIEW: CBC latest is not available. I will order a CBC to be done tomorrow. BMP done today showed sodium 135, potassium 4.4, chloride 101, bicarbonate 24, BUN 37, creatinine 3.6. CURRENT INPATIENT MEDICATIONS: Patient's medications were all reviewed by me. Insulin dose has been increased by the primary team. No other change in the medications today as compared with yesterday. ASSESSMENT AND PLAN: 1. End-stage renal disease on hemodialysis. Patient's regular dialysis days are Monday, , Monday. She was dialyzed yesterday, next hemodialysis session will be tomorrow. Volume status is optimized. 2. Chronic systolic congestive heart failure. Continue current dose of candesartan, metoprolol, and hydralazine. 4 liters of fluid was removed yesterday. Another 4 liters will be remove tomorrow morning during hemodialysis. 3. Hypertension with hypertensive heart disease. Continue current dose of candesartan 2 mg daily, hydralazine 10 mg every 8 hours and metoprolol 50 mg by mouth twice a day. 4. Anemia of end-stage renal disease. Latest hemoglobin is not available. Continue Venofer and Aranicolep. I will check her hemoglobin tomorrow morning before dialysis. 5. Right foot transmetatarsal amputation site pain. Patient reports that she is pending evaluation by vascular surgery for possible debridement of the foot wound again.
[2018-02-14] MEDS: DAKIN'S 0.25% HALF-STRENGTH SOLN 480 ML TOP SCH ×2 (12:00→22:20)
--- NOTE | 2018-02-14 13:08 | IPNPDOC ---
Text Note Date of Service The patient was seen on 02/14/18. NOTE Subjective: Pt notes some pain at the right foot site. No drainage. Objective: Vitals: (see below) General: No acute distress, laying comfortably in bed. HEENT: Moist mucous membranes. Neck: No JVD or lymphadenopathy Cardiac: RRR, No murmurs Pulm: Diminished breath sounds at the bases b/l. No wheezing, rhonchi Abd: NT/ND + BS Ext: No edema or cyanosis. sp L BKA. RLE with wound, no drainage. Minimal erythema. Labs (see below) Assessment/Plan 1. IDDM - BS better controlled on Insulin 70/30. Consistent carb diet. SSI. 2. Right foot metatarsal amputation with ulcer - would cx with Enterococcus faecalis, Staphylococcus aureus, Corynebacteria. On IV vancomycin with dialysis. Dr. Stern on consult. s/p wound debridement. Discussed with Dr. Stern who will re-evaluate pt. 3. ESRD on HD. appreciate nephro input. 4. S/p c diff colitis 5. s/p copd exacerbation 6. HTN controlled. cont current meds 7. H/o CAD s/p PCI on asa/plavix/statin 8. ICM - systolic/diastolic HF EF 15% - on HD. Cont current meds 9. PAS s/p L BKA, perviously s/p multiple stent placement. 10. Medical noncompliance complicating care. DVT prophy:Hep SQ Prognosis guarded. VS,Fishbone, I+O VS, Fishbone, I+O Laboratory Tests 02/14/18 06:03 Calcium Level 7.6 L Vital Signs Date Time Temp Pulse Resp B/P (MAP) Pulse Ox O2 Delivery O2 Flow Rate FiO2 02/14/18 08:22 76 145/62 02/14/18 07:16 18 Room Air 02/14/18 06:00 97.5 97 I&O- Last 24 Hours up to 6 AM 02/14/18 05:59 Intake Total 1140 ml Output Total 4001 ml Balance -2861 ml KIKE JOEL MD Feb 14, 2018 13:08
[2018-02-14 14:00] VITALS: BP 143/59
[2018-02-14] MEDS ORDERED: HumuLIN (NovoLIN)70/30 INSULIN INJ PER UNIT SC SCH (17:30)
[2018-02-14] MEDS: ATORVASTATIN 20 MG TAB PO SCH (20:46)
[2018-02-14 22:00] VITALS: BP 157/82
[2018-02-15 06:00] VITALS: BP 149/78
[2018-02-15] MEDS: DAKIN'S 0.25% HALF-STRENGTH SOLN 480 ML TOP SCH ×3 (06:00→22:10)
[2018-02-15 06:23] LABS: BASO # 0.1 10^3/uL (0.0-0.2); BASO % 0.8 % (0.0-1.0); EOS # 0.5 10^3/uL (0.0-0.50); EOS % 8.3 % (0.0-3.0); HEMATOCRIT 30.3 % (36.0-47.0); HEMOGLOBIN 9.2 g/dl (12.0-15.5); LYMPH # 0.9 10^3/uL (1.5-4.5); LYMPH % 13.6 % (24.0-44.0); MEAN CORPUSCULAR HEMOGLOBIN 25.3 pg (27.0-33.0); MEAN CORPUSCULAR HGB CONC 30.4 g/dl (32.0-36.5); MEAN CORPUSCULAR VOLUME 83.2 fl (80.0-96.0); MONO # 0.7 10^3/uL (0.0-0.8); MONO % 10.6 % (0.0-5.0); NEUTROPHILS # 4.2 10^3/uL (1.8-7.7); NEUTROPHILS % 65.9 % (36.0-66.0); PLATELET COUNT, AUTOMATED 246 10^3/uL (150-450); RED BLOOD COUNT 3.64 10^6/uL (4.00-5.40); WHITE BLOOD COUNT 6.4 10^3/uL (4.0-10.0)
[2018-02-15] MEDS: HEPARIN SOD (PORCINE) 5000 UNITS/ML VIAL SQ SCH ×3 (06:36→22:07)
[2018-02-15] MEDS: CANDESARTAN 4MG TABLET PO SCH (06:36)
[2018-02-15] MEDS: CLOPIDOGREL 75 MG TAB PO SCH (06:37)
[2018-02-15] MEDS: FAMOTIDINE 20 MG TAB PO SCH (06:37)
[2018-02-15] MEDS: **hydrALAZINE** 10 MG TAB PO SCH ×3 (06:37→22:09)
[2018-02-15] MEDS: guaiFENesin ER 600 MG TAB PO SCH ×2 (06:37→22:08)
[2018-02-15] MEDS: ALPRAZolam 0.5 MG TAB PO SCH ×3 (06:38→22:08)
[2018-02-15] MEDS: METOPROLOL TART 50 MG TAB PO SCH ×2 (06:38→22:10)
[2018-02-15] MEDS: ASPIRIN 81 MG ENTERIC TAB PO SCH (06:38)
[2018-02-15] MEDS: SERTRALINE 100 MG TAB PO SCH (06:38)
[2018-02-15] MEDS: FLUTICASONE PROP 0.05% NASAL SPRAY 16 GM (FLONASE) SCH ×2 (06:39→21:00)
[2018-02-15] MEDS: NYSTATIN 100,000 UNITS/GM TOPICAL PWD 15 GM TOP SCH ×2 (06:39→22:11)
[2018-02-15 06:40] LABS: CALCIUM LEVEL 7.6 MG/DL (8.5-10.1); CREATININE FOR GFR 4.43 MG/DL (0.55-1.30); POTASSIUM SERUM 4.8 MEQ/L (3.5-5.1)
[2018-02-15] MEDS: SENNA 8.6 MG TAB (SENOKOT) PO PRN (06:54)
[2018-02-15] MEDS: HumuLIN (NovoLIN)70/30 INSULIN INJ PER UNIT SC SCH ×2 (06:55→17:30)
[2018-02-15] MEDS ORDERED: HEPARIN 1,000 UNITS/ML 10ML VIAL (FOR RADIOLOGY& DIALYSIS ONLY) IV ONE (11:15)
[2018-02-15] MEDS ORDERED: HEPARIN 1,000 UNITS/ML 10ML VIAL (FOR RADIOLOGY& DIALYSIS ONLY) XX ONE (11:15)
--- NOTE | 2018-02-15 11:38 | IPNPDOC ---
Text Note Date of Service The patient was seen on 02/15/18. NOTE Subjective: States right foot with increased pain. No CP/palpitations. Objective: Vitals: (see below) General: No acute distress, laying comfortably in bed. HEENT: Moist mucous membranes. Neck: No JVD or lymphadenopathy Cardiac: RRR, No murmurs Pulm: Diminished breath sounds at the bases b/l. No wheezing, rhonchi Abd: NT/ND + BS Ext: No edema or cyanosis. sp L BKA. RLE with wound, no drainage. Erythema of the RLE. Labs (see below) Assessment/Plan 1. IDDM - BS better controlled on Insulin 70/30. Consistent carb diet. SSI. 2. Right foot metatarsal amputation with ulcer - would cx with H/o Enterococcus faecalis, Staphylococcus aureus, Corynebacteria. Dr. Stern on consult. s/p wound debridement. Discussed with Dr. Stern who will re-evaluate pt. Restarted on vancomycin. CT foot. 3. ESRD on HD. appreciate nephro input. 4. S/p c diff colitis 5. s/p copd exacerbation 6. HTN controlled. cont current meds 7. H/o CAD s/p PCI on asa/plavix/statin 8. ICM - systolic/diastolic HF EF 15% - on HD. Cont current meds 9. PAS s/p L BKA, perviously s/p multiple stent placement. 10. Medical noncompliance complicating care. DVT prophy:Hep SQ Prognosis guarded. VS,Fishbone, I+O VS, Fishbone, I+O Laboratory Tests 02/15/18 06:10 Red Blood Count 3.64 L, Mean Corpuscular Volume 83.2, Mean Corpuscular Hemoglobin 25.3 L, Mean Corpuscular Hemoglobin Concent 30.4 L, Red Cell Distribution Width 23.9 H, Neutrophils (%) (Auto) 65.9, Lymphocytes (%) (Auto) 13.6 L, Monocytes (%) (Auto) 10.6 H, Eosinophils (%) (Auto) 8.3 H, Basophils (%) (Auto) 0.8, Neutrophils # (Auto) 4.2, Lymphocytes # (Auto) 0.9 L, Monocytes # (Auto) 0.7, Eosinophils # (Auto) 0.5, Basophils # (Auto) 0.1, Calcium Level 7.6 L Vital Signs Date Time Temp Pulse Resp B/P (MAP) Pulse Ox O2 Delivery O2 Flow Rate FiO2 02/15/18 06:38 64 157/82 02/15/18 06:00 98.5 18 96 Room Air I&O- Last 24 Hours up to 6 AM 02/15/18 06:00 Intake Total 1300 ml Output Total 0 ml Balance 1300 ml KIKE JOEL MD Feb 15, 2018 11:38
[2018-02-15] MEDS ORDERED: diphenhydrAMINE 25 MG CAP PO ONE (11:45)
[2018-02-15] MEDS ORDERED: DARBEPOETIN 100 MCG/0.5 ML *DIALYSIS* SYRINGE (J0882) IV SCH (12:30)
--- NOTE | 2018-02-15 13:03 | IPN ---
DATE: 02/15/2018 SUBJECTIVE: Patient was seen and examined at the bedside today morning during hemodialysis. She is tolerating the hemodialysis procedure well. She is just reporting generalized itching and requesting an antihistamine. Otherwise she denies any active complaints. OBJECTIVE: VITAL SIGNS: Temperature 98.5 degrees Fahrenheit, blood pressure 157/82, pulse 64, respiratory rate 18, saturating 96% on room air. INTAKE AND OUTPUT: Urine output is not recorded. Weight on the bed scale is not available because she is refusing it. PHYSICAL EXAMINATION: GENERAL: Patient is awake, alert and oriented times three, laying in bed, getting hemodialysis done. HEAD AND NECK EXAMINATION: Extraocular muscles intact. Pupils equally round and reactive to light. Neck is supple. Right internal jugular (IJ) tunneled hemodialysis catheter. CARDIOVASCULAR: S1, S2. Regular rate. Trace edema of the right lower extremity. Right upper arm AV fistula with thrill and bruit. RESPIRATORY: Chest is clear to auscultation bilaterally. Bilateral equal air entry. No rales or rhonchi. ABDOMEN: Soft. Positive bowel sounds. Nontender. No organomegaly. MUSCULOSKELETAL: She has a left below knee amputation and right foot transmetatarsal amputation. Wound is covered with a dressing. CENTRAL NERVOUS SYSTEM: No focal deficit. Power is 5/5 in all extremities. LABORATORY REVIEW: CBC showed a WBC of 6.4, hemoglobin 9.2, and platelets are 246. BMP showed sodium 134, potassium 4.8, chloride 99, bicarbonate 22, BUN 48, creatinine 4.4, calcium 7.6. CURRENT INPATIENT MEDICATIONS: Patient's medications were all reviewed by me. She was recently started on IV vancomycin 750 mg IV every 24 hours. No other change in the medications today as compared with yesterday. ASSESSMENT AND PLAN: 1. End-stage renal disease on hemodialysis. Patient is being dialyzed today according to her regular Monday, , Monday schedule. Ultrafiltration goal will be around 4 liters as tolerated by her blood pressure. 2. Right foot transmetatarsal amputation site infection. The patient has been restarted on vancomycin. I would recommend to give vancomycin after hemodialysis on hemodialysis days three times a week. 3. Chronic systolic congestive heart failure. Volume status is optimized. Continue current dose of beta adeel and angiotensin receptor adeel. 4. Hypertension with hypertensive heart disease. Continue current dose of candesartan 2 mg daily, hydralazine 10 mg every 8 hours and metoprolol 50 mg twice a day. 5. Generalized itching. I gave the patient a dose of Benadryl 25 mg by mouth times one dose. 6. Anemia and end-stage renal disease. Hemoglobin is 9.2 which is slightly suboptimal. I would increase her Aranesp dose to 200 mcg. Continue current dose of Venofer 100 mg with hemodialysis as well for a total of 10 doses.
--- NOTE | 2018-02-15 15:08 | PHACANCOPD ---
PHARMACY VANCOMYCIN DOSING Pt Demographics Demographics Patient Age:57 , Weight:78.600 , Gender: female Adjusted Body Weight Date: 01/17/18, Adjusted Body Weight: Kg Vancomycin Vancomycin indication: INFECTED FOOT WOUND Vancomycin Target Ranges: 15-20 mcg/ml Vancomycin Load Y/N: No Load Dose Date Time Vancomycin Load Dose: Date: Time: Vancomycin Dose Date: 02/15/18. Current Vancomycin Dose: [750mg after HD] Date: 01/17/18. Current Vancomycin Dose: [1GM AFTER HD] Intermittent Dosing?: No Labs Labs Item Value Date Time White Blood Count 8.5 10^3/uL 02/09/18 0600 White Blood Count 6.4 10^3/uL 02/15/18 0610 Creatinine 3.61 MG/DL H 02/14/18 0603 Creatinine 4.43 MG/DL H 02/15/18 0610 Vital Signs Label Value Date Time Patient Temperature 98.5 degrees F 02/15/18 0600 Temperature Source Temporal 02/15/18 0600 Creatinine Clearance Date:01/17/18. Creatinine Clearance: . Assessment and Plan Maintaining Current Dose?: Yes Reason for dose change: No Dose Change Pharmacist Note Pharmacist Note 02/15: Patient was restarted on Vancomycin today due to increased pain in right foot. She is status post right foot metatarsal amputation with ulcer. She receives dialysis on Monday, and Saturdays. Patient has a history of E. faecalis, Staph aureus, and Corynebacteria for wound cultures. She was started on Vancomycin 750mg after dialysis. We will continue to monitor and make adjustments as necessary. 01/27/18: Random this AM resulted at 22.2mcg/ml. Level is coming down. I have scheduled a random for AM before next dialysis session to ensure appropriate level. We will continue to monitor and adjust dose as needed. 01/25/18: Random this AM resulted at 24.2mcg/ml. The patient is continuing to accumulate. I have lowered the dose to Vanco 750mg IV HD. We will continue to monitor and adjust dose as needed. 01/23: patient's trough is back in range today at 16.1 so we will resume her Vancomycin 1gm after HD today. She is receiving HD today. Her WBC is within normal limits and she is afebrile. She is waiting for consult from Dr. Stern to see what her next steps are for her wound care. WE will continue to monitor and make adjustments as necessary. 01/20: Patient's random came back at 32.8 today. Her vancomycin was put on hold due to the high random this morning. She is receiving dialysis today and we will reevaluate random in the morning. We will continue to monitor and make adjustments as necessary. Date: 01/17/18. Pharmacist note: Patient was started on Vancomycin today due to infected wound on her foot. Her previous wound cultures grew E.faecalis and MSSA. She is a dialysis patient with usual dialysis days of Monday, , and Monday. She has not received dialysis in over a week and therefore will receive dialysis today. They are unsure at this time what her dialysis schedule will be as they will be evaluating her day by day to see what her needs are. Currently she is set up with Vancomycin 1gm after HD and we will obtain a random level in the morning to make sure she is therapeutic range. We will continue to monitor and make adjustments as necessary. R[facility] Feb 15, 2018 15:08
[2018-02-15] MEDS: ONDANSETRON 4 MG ORAL DISINTEGRATING TAB (Q0162 PER 1MG) PO PRN (15:29)
[2018-02-15 16:00] VITALS: BP 144/45
[2018-02-15 22:00] VITALS: BP 158/60
[2018-02-15] MEDS: ATORVASTATIN 20 MG TAB PO SCH (22:08)
[2018-02-16 06:00] VITALS: BP 163/78
[2018-02-16] MEDS: HEPARIN SOD (PORCINE) 5000 UNITS/ML VIAL SQ SCH ×3 (06:00→21:38)
[2018-02-16] MEDS: **hydrALAZINE** 10 MG TAB PO SCH ×3 (06:49→21:37)
[2018-02-16] MEDS: HumuLIN (NovoLIN)70/30 INSULIN INJ PER UNIT SC SCH ×2 (08:15→17:30)
[2018-02-16] MEDS: CANDESARTAN 4MG TABLET PO SCH (08:16)
[2018-02-16] MEDS: ASPIRIN 81 MG ENTERIC TAB PO SCH (08:17)
[2018-02-16] MEDS: METOPROLOL TART 50 MG TAB PO SCH ×2 (08:17→21:36)
[2018-02-16] MEDS: ALPRAZolam 0.5 MG TAB PO SCH ×3 (08:18→21:35)
[2018-02-16] MEDS: FAMOTIDINE 20 MG TAB PO SCH (08:18)
[2018-02-16] MEDS: CLOPIDOGREL 75 MG TAB PO SCH (08:18)
[2018-02-16] MEDS: SERTRALINE 100 MG TAB PO SCH (08:18)
[2018-02-16] MEDS: guaiFENesin ER 600 MG TAB PO SCH ×2 (08:18→21:37)
[2018-02-16] MEDS: FLUTICASONE PROP 0.05% NASAL SPRAY 16 GM (FLONASE) SCH ×2 (08:22→21:37)
[2018-02-16] MEDS: ANEXSIA, NORCO 7.5MG/325MG TABLET(HYDROCODONE/APAP) PO PRN ×2 (08:22→21:36)
[2018-02-16] MEDS: NYSTATIN 100,000 UNITS/GM TOPICAL PWD 15 GM TOP SCH ×2 (08:23→21:37)
--- NOTE | 2018-02-16 13:46 | IPNPDOC ---
Subjective Date Seen The patient was seen on 02/16/18. Subjective Chief Complaint/HPI Rt foot pain. Reported fluctuated FBS 40-350s, afebrile. Objective Physical Examination General Exam: Positive: Alert, Cooperative, Moderate Distress, Other (drowsy) Eye Exam: Positive: PERRLA, EOMI ENT Exam: Positive: Atraumatic, Other ENT (facial swelling) Neck Exam: Positive: Supple; Negative: JVD Chest Exam: Positive: Clear to auscultation, Normal air movement, Diminished (breath sounds aden); Negative: Rales, Rhonchi, Wheezing, Other Heart Exam: Positive: Rate Normal, Regular Rhythm, Normal S1, Normal S2; Negative: Gallops, Murmurs, Rubs, Other Abdomen Exam: Positive: Normal bowel sounds, Soft; Negative: Tenderness Extremity Exam: Positive: Edema, Tenderness, Other (LLE s/p BKA, Right stump nonhealing wound covered with a thick layer of necrotic tissue with some drainage, the wound edges purple red with edema.); Negative: Clubbing, Cyanosis Neuro Exam: Positive: Normal Speech, Strength at 5/5 X4 ext, Cranial Nerves 3- 12 NL Psych Exam: Positive: Anxiety, Oriented x 3 Assessment /Plan Assessment 1. Infected nonhealing wound of right stump s/p TMA, s/p debridement, worsening. 2. Insulin dependent DM poorly controlled 3. ESRD on HD TThSa 4. COPD 5. Combined systolic and diastolic CHF Plan/VTE VTE Prophylaxis Ordered?: Yes Plan Continue current management. Continue wound care. Consider debridement or foot amputation. VS, I&O, 24H, Fishbone Vital Signs/I&O Vital Signs Date Time Temp Pulse Resp B/P (MAP) Pulse Ox O2 Delivery O2 Flow Rate FiO2 02/16/18 08:22 80 14 95 Room Air 02/16/18 08:17 163/78 02/16/18 06:00 98.6 I&O- Last 24 Hours up to 6 AM0 02/16/18 06:00 Intake Total 820 ml Output Total 4000 ml Balance -3180 ml Laboratory Data 24H LABS Laboratory Tests 2 02/16/18 07:58: Bedside Glucose (Misc Panel) 439H PADMINI FIGUEROA PA-C Feb 16, 2018 13:46
[2018-02-16 14:00] VITALS: BP 162/60
[2018-02-16] MEDS: DAKIN'S 0.25% HALF-STRENGTH SOLN 480 ML TOP SCH ×2 (14:00→21:38)
--- NOTE | 2018-02-16 14:22 | IPNPDOC ---
Text Note Date of Service The patient was seen on 02/16/18. NOTE Subjective: Pain and swelling of right foot. Some decrease in erythema today. No fevers. No CP/palpitations. Had refused insulin and CT foot yesterday. Objective: Vitals: (see below) General: No acute distress, laying comfortably in bed. HEENT: Moist mucous membranes. Neck: No JVD or lymphadenopathy Cardiac: RRR, No murmurs. Pulm: Diminished breath sounds at the bases b/l. No wheezing, rhonchi Abd: NT/ND + BS Ext: No edema or cyanosis. sp L BKA. RLE with wound, no drainage. Erythema of the RLE foot region; minimal improvement since yesterday. Labs (see below) Assessment/Plan 1. IDDM - BS better controlled on Insulin 70/30. Consistent carb diet. SSI. 2. Right foot metatarsal amputation with ulcer - would cx with H/o Enterococcus faecalis, Staphylococcus aureus, Corynebacteria. Dr. Stern on consult. s/p wound debridement. Discussed with Dr. Stern who will re-evaluate pt. Restarted on vancomycin. CT foot. 3. ESRD on HD. appreciate nephro input. 4. S/p c diff colitis 5. s/p copd exacerbation 6. HTN controlled. cont current meds 7. H/o CAD s/p PCI on asa/plavix/statin 8. ICM - systolic/diastolic HF EF 15% - on HD. Cont current meds 9. PAS s/p L BKA, perviously s/p multiple stent placement. 10. Medical noncompliance complicating care. DVT prophy:Hep SQ Prognosis guarded. VS,Fishbone, I+O VS, Fishbone, I+O Vital Signs Date Time Temp Pulse Resp B/P (MAP) Pulse Ox O2 Delivery O2 Flow Rate FiO2 02/16/18 08:22 80 14 95 Room Air 02/16/18 08:17 163/78 02/16/18 06:00 98.6 I&O- Last 24 Hours up to 6 AM 02/16/18 06:00 Intake Total 820 ml Output Total 4000 ml Balance -3180 ml KIKE JOLE MD Feb 16, 2018 14:22
[2018-02-16] MEDS: **VANCO AFTER HD** MISC XX SCH (16:00)
--- NOTE | 2018-02-16 16:31 | REP ---
CT RIGHT FOOT WITHOUT CONTRAST: 02/16/2018. Clinical history: Prior right forefoot amputation at the distal metatarsals, evaluate for possible wound infection. Comparison noncontrast CT 01/18/2018. Technique: Axial soft-tissue and bone window settings with both coronal and sagittal bone window reconstructions provided. Lung windows were also reviewed for detection of subcutaneous air pockets. Amputation at the distal heads of the first through fifth metatarsals with soft tissue flap overlying. There are a few tiny bone fragments in that soft tissue flap as on the previous study. I do not see definite exposed bone for any of the distal amputations of those metatarsals. When reviewed in lung window settings I do not see subcutaneous emphysema. There is no interval development of a fracture or new destructive lesion. Irregularity of the margins of flap at the amputation site may reflect incomplete healing of that wound. Vascular calcifications in arteries about the ankle and foot noted. Calcaneus and talus are without fracture or destructive lesion. Tarsal bones and articulations are intact. Proximal heads of the metatarsals intact with some degenerative changes at the TMP joints and tarsal bones. Soft tissue edema over the foot particularly the distal flap. Impression: 1. Status post distal forefoot amputation at the distal ends of the first through fifth metatarsals. I do not see a definite subcutaneous emphysema or visible drainable fluid collection to suggest gangrene or abscess. There is some soft tissue swelling and edema, and irregularity of the flap that suggests it has not healed. 2. I do not see a significant change in the appearance of the bones since the study 4 weeks ago. Electronically Signed by Jai Matson MD 02/16/2018 04:41 P
[2018-02-16] MEDS ORDERED: GLUCAGON FOR INJ 1 MG VIAL (J1610) SC PRN (20:45)
[2018-02-16] MEDS ORDERED: DEXTROSE 50% 50 ML SYRINGE IV PRN (20:45)
--- NOTE | 2018-02-16 20:52 | IPN ---
DATE: 02/16/2018 SUBJECTIVE: The patient was seen and examined at the bedside today in the morning. She is afebrile, hemodynamically stable. She was dialyzed yesterday. She tolerated the hemodialysis procedure well. Four liters of fluid was removed. The patient also reports that she is going to have a CAT scan of the right foot done for possible infection in the right foot. OBJECTIVE: VITAL SIGNS: Temperature is 98.6 degrees Fahrenheit, blood pressure 163/78, pulse is 75, respiratory rate of 18, saturating 93% on room air. INTAKE/OUTPUT: Urine output is not recorded. Fluid removal with dialysis was 400 mL. Weight on the bed scale is not available. PHYSICAL EXAMINATION: GENERAL: The patient is awake, alert, oriented times three, sitting up in the bed in no apparent distress. HEAD AND NECK EXAM: Extraocular muscles intact. Pupils equally round and reactive to light. Mucous membranes are moist. Neck is supple. There is no jugular venous distention (JVD). CARDIOVASCULAR: S1, S2, regular rate. Trace edema of the right lower extremity. RESPIRATORY: Chest is clear to auscultation bilaterally. Bilateral equal air entry. No rales or rhonchi. ABDOMEN: Abdomen is soft. Positive bowel sounds. Nontender. No organomegaly. MUSCULOSKELETAL: She has left below-knee amputation. She has a right 4th transmetatarsal amputation. Wound is covered in a dressing. CENTRAL NERVOUS SYSTEM: No focal deficit. Power is 5/5 in bilateral upper extremities. LAB REVIEW: CBC showed a WBC of 6.4 and hemoglobin 9.2; that was from yesterday. There is no BMP available from today. CURRENT INPATIENT MEDICATIONS: The patient's medications were all reviewed by me. There is no change in the medications today as compared with yesterday. IMAGING: A CAT scan of the foot without contrast was done on the right side. It did not show any subcutaneous emphysema or a drainable fluid collection. ASSESSMENT AND PLAN: 1. End-stage renal disease, on hemodialysis. Patient's regular dialysis days are Monday, , Monday. She will be dialyzed tomorrow as per her regular schedule. 2. Right foot transmetatarsal amputation site infection. Patient got the CAT scan done today, which showed no active collection or subcutaneous emphysema. She is still getting vancomycin 750 mg with hemodialysis. The rest of the management is as per vascular surgery. 3. Chronic systolic congestive heart failure. Volume status is controlled with dialysis. Continue current dose of candesartan and metoprolol. 4. Hypertension with hypertensive heart disease. Continue current dose of candesartan 2 mg, hydralazine 10 mg every 8 hours and metoprolol 50 mg twice a day. 5. Anemia in end-stage renal disease. Hemoglobin was 9.2 yesterday. Continue current dose of Aranesp 200 mcg with hemodialysis and Venofer with hemodialysis for a total of two doses.
[2018-02-16] MEDS: ATORVASTATIN 20 MG TAB PO SCH (21:35)
[2018-02-16] MEDS: HumaLOG INSULIN (NovoLOG) PER UNIT SC SCH (21:39)
[2018-02-16 22:00] VITALS: BP 149/67
[2018-02-17 06:00] VITALS: BP 146/68
[2018-02-17] MEDS: CANDESARTAN 4MG TABLET PO SCH (06:14)
[2018-02-17] MEDS: FAMOTIDINE 20 MG TAB PO SCH (06:14)
[2018-02-17] MEDS: guaiFENesin ER 600 MG TAB PO SCH ×2 (06:15→20:20)
[2018-02-17] MEDS: ALPRAZolam 0.5 MG TAB PO SCH ×3 (06:15→20:21)
[2018-02-17] MEDS: METOPROLOL TART 50 MG TAB PO SCH ×2 (06:15→20:20)
[2018-02-17] MEDS: SERTRALINE 100 MG TAB PO SCH (06:15)
[2018-02-17] MEDS: **hydrALAZINE** 10 MG TAB PO SCH ×3 (06:16→21:30)
[2018-02-17] MEDS: ASPIRIN 81 MG ENTERIC TAB PO SCH (06:16)
[2018-02-17] MEDS: HEPARIN SOD (PORCINE) 5000 UNITS/ML VIAL SQ SCH ×3 (06:16→21:30)
[2018-02-17] MEDS: NYSTATIN 100,000 UNITS/GM TOPICAL PWD 15 GM TOP SCH ×2 (06:17→20:21)
[2018-02-17] MEDS: DAKIN'S 0.25% HALF-STRENGTH SOLN 480 ML TOP SCH ×3 (06:17→20:22)
[2018-02-17] MEDS: HumaLOG INSULIN (NovoLOG) PER UNIT SC SCH ×4 (07:30→20:35)
[2018-02-17 07:32] LABS: VANCOMYCIN RANDOM 2.1 UG/ML
[2018-02-17] MEDS: CLOPIDOGREL 75 MG TAB PO SCH (07:38)
[2018-02-17] MEDS: FLUTICASONE PROP 0.05% NASAL SPRAY 16 GM (FLONASE) SCH ×2 (07:40→20:22)
[2018-02-17] MEDS: LEVEMIR (INSULIN DETEMIR) 1 UNITS/0.01ML SC SCH (09:00)
[2018-02-17 10:08] LABS: HEMOGLOBIN 9.6 g/dl (12.0-15.5); MEAN CORPUSCULAR HEMOGLOBIN 24.7 pg (27.0-33.0); MEAN CORPUSCULAR VOLUME 82.3 fl (80.0-96.0); PLATELET COUNT, AUTOMATED 291 10^3/uL (150-450); RED BLOOD COUNT 3.89 10^6/uL (4.00-5.40); WHITE BLOOD COUNT 6.6 10^3/uL (4.0-10.0)
[2018-02-17 10:17] LABS: C REACTIVE PROTEIN QUANTITATIV 6.2 MG/DL (0.00-0.30); CALCIUM LEVEL 8.1 MG/DL (8.5-10.1); CREATININE FOR GFR 4.01 MG/DL (0.55-1.30); GLOMERULAR FILTRATION RATE 12.3 (>51); POTASSIUM SERUM 4.9 MEQ/L (3.5-5.1)
--- NOTE | 2018-02-17 11:20 | IPNPDOC ---
Text Note Date of Service The patient was seen on 02/17/18. NOTE Subjective: Pain and swelling of right foot improved. No fevers. No CP/palpi tations. Objective: Vitals: (see below) General: No acute distress, laying comfortably in bed. HEENT: Moist mucous membranes. Neck: No JVD or lymphadenopathy Cardiac: RRR, No murmurs. Pulm: Diminished breath sounds at the bases b/l. No wheezing, rhonchi Abd: NT/ND + BS Ext: No edema or cyanosis. sp L BKA. RLE with wound, no drainage. Erythema of the RLE foot region; minimal improvement since yesterday. Labs (see below) Assessment/Plan 1. IDDM - Started on levemir/SSI. Consistent carb diet. 2. Right foot metatarsal amputation with ulcer - would cx with H/o Enterococcus faecalis, Staphylococcus aureus, Corynebacteria. Dr. Stern on consult. s/p wound debridement. Discussed with Dr. Stern who will re-evaluate pt. On vancomycin. CT foot with no abscess. 3. ESRD on HD. appreciate nephro input. 4. S/p c diff colitis 5. s/p copd exacerbation 6. HTN controlled. cont current meds 7. H/o CAD s/p PCI on asa/plavix/statin 8. ICM - systolic/diastolic HF EF 15% - on HD. Cont current meds 9. PAS s/p L BKA, perviously s/p multiple stent placement. 10. Medical noncompliance complicating care. DVT prophy:Hep SQ Prognosis guarded. VS,Fishbone, I+O VS, Fishbone, I+O Laboratory Tests 02/17/18 06:18 Red Blood Count 3.89 L, Mean Corpuscular Volume 82.3, Mean Corpuscular Hemoglobin 24.7 L, Mean Corpuscular Hemoglobin Concent 30.0 L, Red Cell Distribution Width 23.6 H, Calcium Level 8.1 L Vital Signs Date Time Temp Pulse Resp B/P (MAP) Pulse Ox O2 Delivery O2 Flow Rate FiO2 02/17/18 06:15 64 146/68 02/17/18 06:00 98.3 16 96 Room Air I&O- Last 24 Hours up to 6 AM 02/17/18 05:59 Intake Total 1740 ml Output Total 0 ml Balance 1740 ml KIKE JOEL MD Feb 17, 2018 11:20
[2018-02-17] MEDS: ANEXSIA, NORCO 7.5MG/325MG TABLET(HYDROCODONE/APAP) PO PRN ×2 (12:18→18:53)
[2018-02-17] MEDS ORDERED: diphenhydrAMINE INJ 50MG/ML VIAL (J1200) IV PRN (12:45)
[2018-02-17] MEDS ORDERED: HEPARIN 1,000 UNITS/ML 10ML VIAL (FOR RADIOLOGY& DIALYSIS ONLY) XX ONE (13:00)
[2018-02-17] MEDS ORDERED: HEPARIN 1,000 UNITS/ML 10ML VIAL (FOR RADIOLOGY& DIALYSIS ONLY) IV ONE (13:00)
[2018-02-17] MEDS ORDERED: VANCOMYCIN HCL 750 MG, VIAL MATE ADAPTER 1 EACH in D5W 250 ML IV ONE (17:00)
[2018-02-17] MEDS: ATORVASTATIN 20 MG TAB PO SCH (20:20)
[2018-02-17 22:00] VITALS: BP 143/58
[2018-02-18] MEDS: oxyCODONE 5MG TAB PO PRN ×3 (01:32→22:10)
[2018-02-18] MEDS: ANEXSIA, NORCO 7.5MG/325MG TABLET(HYDROCODONE/APAP) PO PRN ×3 (03:17→18:50)
[2018-02-18] MEDS: HEPARIN SOD (PORCINE) 5000 UNITS/ML VIAL SQ SCH ×3 (06:00→22:00)
[2018-02-18] MEDS: DAKIN'S 0.25% HALF-STRENGTH SOLN 480 ML TOP SCH ×3 (06:00→22:00)
[2018-02-18] MEDS: **hydrALAZINE** 10 MG TAB PO SCH ×3 (06:32→22:08)
[2018-02-18 06:35] VITALS: BP 165/65
[2018-02-18] MEDS: HumaLOG INSULIN (NovoLOG) PER UNIT SC SCH ×4 (07:30→21:51)
[2018-02-18] MEDS: SERTRALINE 100 MG TAB PO SCH (07:37)
[2018-02-18] MEDS: LEVEMIR (INSULIN DETEMIR) 1 UNITS/0.01ML SC SCH (07:38)
[2018-02-18] MEDS ORDERED: LEVEMIR (INSULIN DETEMIR) 1 UNITS/0.01ML SC ONE ×2 (09:00→15:30)
[2018-02-18 09:14] LABS: HEMOGLOBIN 9.7 g/dl (12.0-15.5); MEAN CORPUSCULAR HEMOGLOBIN 25.3 pg (27.0-33.0); MEAN CORPUSCULAR HGB CONC 30.3 g/dl (32.0-36.5); MEAN CORPUSCULAR VOLUME 83.3 fl (80.0-96.0); PLATELET COUNT, AUTOMATED 275 10^3/uL (150-450); RED BLOOD COUNT 3.84 10^6/uL (4.00-5.40); WHITE BLOOD COUNT 6.5 10^3/uL (4.0-10.0)
[2018-02-18 09:33] LABS: CALCIUM LEVEL 7.9 MG/DL (8.5-10.1); CREATININE FOR GFR 3.76 MG/DL (0.55-1.30); GLOMERULAR FILTRATION RATE 13.2 (>51); POTASSIUM SERUM 4.3 MEQ/L (3.5-5.1)
[2018-02-18] MEDS: CLOPIDOGREL 75 MG TAB PO SCH (11:27)
[2018-02-18] MEDS: ASPIRIN 81 MG ENTERIC TAB PO SCH (11:28)
[2018-02-18] MEDS: ALPRAZolam 0.5 MG TAB PO SCH ×3 (11:28→22:09)
[2018-02-18] MEDS: METOPROLOL TART 50 MG TAB PO SCH ×2 (11:28→22:09)
[2018-02-18] MEDS: FAMOTIDINE 20 MG TAB PO SCH (11:28)
[2018-02-18] MEDS: guaiFENesin ER 600 MG TAB PO SCH ×2 (11:28→22:09)
[2018-02-18] MEDS: CANDESARTAN 4MG TABLET PO SCH (11:29)
[2018-02-18] MEDS: LACTULOSE 20 GM/30 ML SYRUP UD PO PRN (11:30)
[2018-02-18] MEDS: NYSTATIN 100,000 UNITS/GM TOPICAL PWD 15 GM TOP SCH ×2 (11:33→22:10)
[2018-02-18] MEDS: FLUTICASONE PROP 0.05% NASAL SPRAY 16 GM (FLONASE) SCH ×2 (11:34→22:11)
[2018-02-18 14:00] VITALS: BP 164/65
[2018-02-18] MEDS ORDERED: HEPARIN 1,000 UNITS/ML 10ML VIAL (FOR RADIOLOGY& DIALYSIS ONLY) IV ONE (14:00)
[2018-02-18] MEDS ORDERED: HEPARIN 1,000 UNITS/ML 10ML VIAL (FOR RADIOLOGY& DIALYSIS ONLY) XX ONE (14:00)
--- NOTE | 2018-02-18 15:20 | IPNPDOC ---
Text Note Date of Service The patient was seen on 02/18/18. NOTE Subjective: Pt denies any further pain and swelling in RLE. No fevers. No C P/palpitations. Objective: Vitals: (see below) General: No acute distress, laying comfortably in bed. HEENT: Moist mucous membranes. Neck: No JVD or lymphadenopathy Cardiac: RRR, No murmurs. Pulm: Diminished breath sounds at the bases b/l. No wheezing, rhonchi Abd: NT/ND + BS Ext: No edema or cyanosis. sp L BKA. RLE with wound, no drainage. Erythema of the RLE foot region resolved. Labs (see below) Assessment/Plan 1. IDDM - Levemir dose increased. Cont SSI. Consistent carb diet. 2. Right foot metatarsal amputation with ulcer - would cx with H/o Enterococcus faecalis, Staphylococcus aureus, Corynebacteria. Dr. Stern on consult. s/p wound debridement. Discussed with Dr. Stern who will re-evaluate pt. On vancomycin. CT foot with no abscess. 3. ESRD on HD. appreciate nephro input. 4. S/p c diff colitis 5. s/p copd exacerbation 6. HTN controlled. cont current meds 7. H/o CAD s/p PCI on asa/plavix/statin 8. ICM - systolic/diastolic HF EF 15% - on HD. Cont current meds 9. PAS s/p L BKA, perviously s/p multiple stent placement. 10. Medical noncompliance complicating care. DVT prophy:Hep SQ Prognosis guarded. VS,Fishbone, I+O VS, Fishbone, I+O Laboratory Tests 02/18/18 08:56 Red Blood Count 3.84 L, Mean Corpuscular Volume 83.3, Mean Corpuscular Hemoglobin 25.3 L, Mean Corpuscular Hemoglobin Concent 30.3 L, Red Cell Distr ibution Width 24.1 H, Calcium Level 7.9 L Vital Signs Date Time Temp Pulse Resp B/P (MAP) Pulse Ox O2 Delivery O2 Flow Rate FiO2 02/18/18 14:00 97.8 63 18 164/65 (98) 99 Room Air I&O- Last 24 Hours up to 6 AM 02/18/18 06:00 Intake Total 1860 ml Output Total 5700 ml Balance -3840 ml ABED,KIKE MD Feb 18, 2018 15:20
[2018-02-18] MEDS: **VANCO AFTER HD** MISC XX SCH (16:00)
[2018-02-18 22:00] VITALS: BP 145/62
[2018-02-18] MEDS: ATORVASTATIN 20 MG TAB PO SCH (22:08)
[2018-02-19] MEDS: HEPARIN SOD (PORCINE) 5000 UNITS/ML VIAL SQ SCH ×3 (05:44→21:12)
[2018-02-19 05:56] LABS: HEMATOCRIT 33.9 % (36.0-47.0); HEMOGLOBIN 10.3 g/dl (12.0-15.5); MEAN CORPUSCULAR HEMOGLOBIN 25.4 pg (27.0-33.0); MEAN CORPUSCULAR HGB CONC 30.4 g/dl (32.0-36.5); MEAN CORPUSCULAR VOLUME 83.7 fl (80.0-96.0); PLATELET COUNT, AUTOMATED 321 10^3/uL (150-450); RED BLOOD COUNT 4.05 10^6/uL (4.00-5.40); WHITE BLOOD COUNT 6.8 10^3/uL (4.0-10.0)
[2018-02-19 06:00] VITALS: BP 123/73
[2018-02-19] MEDS: SENNA 8.6 MG TAB (SENOKOT) PO PRN (06:07)
[2018-02-19] MEDS: ANEXSIA, NORCO 7.5MG/325MG TABLET(HYDROCODONE/APAP) PO PRN ×2 (06:08→14:45)
[2018-02-19] MEDS: DAKIN'S 0.25% HALF-STRENGTH SOLN 480 ML TOP SCH ×3 (06:08→21:12)
[2018-02-19] MEDS: **hydrALAZINE** 10 MG TAB PO SCH ×3 (06:09→21:12)
[2018-02-19 06:23] LABS: C REACTIVE PROTEIN QUANTITATIV 5.72 MG/DL (0.00-0.30); CALCIUM LEVEL 8.3 MG/DL (8.5-10.1); CREATININE FOR GFR 4.07 MG/DL (0.55-1.30); GLOMERULAR FILTRATION RATE 12.1 (>51)
[2018-02-19] MEDS: HumaLOG INSULIN (NovoLOG) PER UNIT SC SCH ×4 (07:45→21:00)
[2018-02-19] MEDS: **VANCO AFTER HD** MISC XX SCH ×3 (08:03→17:12)
[2018-02-19] MEDS: SERTRALINE 100 MG TAB PO SCH (09:33)
[2018-02-19] MEDS: ASPIRIN 81 MG ENTERIC TAB PO SCH (09:33)
[2018-02-19] MEDS: CLOPIDOGREL 75 MG TAB PO SCH (09:33)
[2018-02-19] MEDS: FAMOTIDINE 20 MG TAB PO SCH (09:33)
[2018-02-19] MEDS: METOPROLOL TART 50 MG TAB PO SCH ×2 (09:33→21:11)
[2018-02-19] MEDS: CANDESARTAN 4MG TABLET PO SCH (09:33)
[2018-02-19] MEDS: guaiFENesin ER 600 MG TAB PO SCH ×2 (09:33→21:11)
[2018-02-19] MEDS: ALPRAZolam 0.5 MG TAB PO SCH ×3 (09:33→21:10)
[2018-02-19] MEDS: FLUTICASONE PROP 0.05% NASAL SPRAY 16 GM (FLONASE) SCH ×2 (09:34→21:00)
[2018-02-19] MEDS: NYSTATIN 100,000 UNITS/GM TOPICAL PWD 15 GM TOP SCH ×2 (09:34→21:12)
[2018-02-19] MEDS: LEVEMIR (INSULIN DETEMIR) 1 UNITS/0.01ML SC SCH (09:34)
--- NOTE | 2018-02-19 10:58 | IPNPDOC ---
Text Note Date of Service The patient was seen on 02/19/18. NOTE Subjective: Feels well today. Denies any complaints. Objective: Vitals: (see below) General: No acute distress, laying comfortably in bed. HEENT: Moist mucous membranes. Neck: No JVD or lymphadenopathy Cardiac: RRR, No murmurs. Pulm: Diminished breath sounds at the bases b/l. No wheezing, rhonchi Abd: NT/ND + BS Ext: No edema or cyanosis. sp L BKA. RLE with wound, no drainage. Erythema of the RLE foot region resolved. Labs (see below) Assessment/Plan 1. IDDM - Levemir dose increased. Cont SSI. Consistent carb diet. 2. Right foot metatarsal amputation with ulcer - would cx with H/o Enterococcus faecalis, Staphylococcus aureus, Corynebacteria. Dr. Stern on consult. s/p wound debridement. Discussed with Dr. Stern who will re-evaluate pt. On vancomycin. CT foot with no abscess. 3. ESRD on HD. appreciate nephro input. 4. S/p c diff colitis 5. s/p copd exacerbation 6. HTN controlled. cont current meds 7. H/o CAD s/p PCI on asa/plavix/statin 8. ICM - systolic/diastolic HF EF 15% - on HD. Cont current meds 9. PAS s/p L BKA, perviously s/p multiple stent placement. 10. Medical noncompliance complicating care. DVT prophy:Hep SQ Prognosis guarded. VS,Fishbone, I+O VS, Fishbone, I+O Laboratory Tests 02/19/18 05:38 Red Blood Count 4.05, Mean Corpuscular Volume 83.7, Mean Corpuscular Hemoglobin 25.4 L, Mean Corpuscular Hemoglobin Concent 30.4 L, Red Cell Distribution Width 23.8 H, Calcium Level 8.3 L Vital Signs Date Time Temp Pulse Resp B/P (MAP) Pulse Ox O2 Delivery O2 Flow Rate FiO2 02/19/18 09:33 66 177/74 02/19/18 06:38 19 Room Air 02/19/18 06:00 97.2 97 I&O- Last 24 Hours up to 6 AM 02/19/18 06:00 Intake Total 1400 ml Output Total 0 ml Balance 1400 ml KIKE JOEL MD Feb 19, 2018 10:58
[2018-02-19] MEDS ORDERED: FLUCONAZOLE 50MG TABLET PO ONE (12:00)
[2018-02-19] MEDS ORDERED: ALTEPLASE 2 MG/2 ML VIAL (J2997 PER 1MG) XX ONE (13:00)
[2018-02-19] MEDS ORDERED: HEPARIN 1,000 UNITS/ML 10ML VIAL (FOR RADIOLOGY& DIALYSIS ONLY) XX ONE (14:00)
[2018-02-19] MEDS ORDERED: HEPARIN 1,000 UNITS/ML 10ML VIAL (FOR RADIOLOGY& DIALYSIS ONLY) IV ONE (14:00)
[2018-02-19 15:07] LABS: VANCOMYCIN RANDOM 16.2 UG/ML
--- NOTE | 2018-02-19 17:09 | IPN ---
DATE: 02/18/2018 Ms. Ibarra is seen this morning on her bedside. She is sitting in her bed and dressing on her right foot has been opened. I did look at the wound which looks quite necrotic but without any drainage. She has no fever or chills. She did have dialysis yesterday and we were able to remove 5 liters of fluid. The patient has been refusing to be weighed most of the time, however this morning she was weighed at 75.8 kg. PHYSICAL EXAMINATION: Temperature 97.7 degrees Fahrenheit, heart rate 70 per minute and respiratory rate 16 per minute. Blood pressure 165/65 mmHg and oxygen saturation 95% on room air. Her head is atraumatic. Some facial edema is noted. Neck veins are mildly distended and neck is otherwise supple. Dialysis catheter is present in right internal jugular vein. She has no oral thrush or ulcers. Lungs have diminished breath sounds at lower one-third bilaterally. Heart sounds are regular and there is no pericardial friction rub. Abdomen soft and nontender. She has edema on lower abdominal wall and on her back. Extremities have no cyanosis or clubbing. Her right foot wound following transmetatarsal amputation of toes has not healed and it looks necrotic. She has significant edema of her lower extremities. Neurologically she is awake and at her baseline mentation. Today's labs show WBC count 6.5, hemoglobin 9.7 and hematocrit 32.0. Sodium 131, potassium 4.3, CO2 23, BUN 34 and creatinine 3.76. Glucose was 466 this morning and calcium 4.9. PROBLEMS: 1. End-stage renal disease. The patient was dialyzed yesterday and her regular dialysis will be scheduled for tomorrow. I have discussed with her about her situation as she has significant hypervolemia and edema of her lower extremities and back. Initially she agreed to go for an extra ultrafiltration today. However, later on she declined it. She has been mostly quite noncompliant with her care. 2. Hyperglycemia. Her blood sugar is quite high this morning and she remains on insulin. I have advised her to follow her dietary restrictions. 3. Anemia. Anemia is stable and slowly improving. We will continue with Aranesp once a week during dialysis and the dose has already been increased to 200 mcg which she will receive neck week. 4. Hypervolemia and generalized edema. The patient has been noncompliant with fluid restriction and also she has been noncompliant with extra dialysis treatments whenever we try to help her. I have explained to her that it is in her best interest to follow instructions and dietary restrictions. 5. Infected wound right foot. The patient remains on antibiotics and received 1.5 grams of vancomycin yesterday after dialysis because of a low vancomycin level of 2.1. Apparently she missed her vancomycin on 02/14/2018. At this point we will continue with a dose of vancomycin after each dialysis due to lack of a peripheral IV access.
[2018-02-19] MEDS: VANCOMYCIN HCL 750 MG, VIAL MATE ADAPTER 1 EACH in D5W 250 ML IV SCH (17:57)
--- NOTE | 2018-02-19 20:45 | IPN ---
DATE: 02/19/2018 Mrs. Ibarra is seen this morning on her bedside. She is sitting in the bed and is quite upset as she wants to go home. She denies any nausea or vomiting. She has generalized edema, particularly on lower half of the body due to noncompliance with fluid restriction and dialysis treatments. She was scheduled for an ultrafiltration yesterday, however she declined when she was called. I have discussed with her at length again about need for compliance with dietary and fluid restriction in addition to compliance with dialysis treatment. Her compliance has been extremely poor even as an outpatient and inpatient. She has been declining dialysis at times. She has a nonhealing foot stump wound after amputation of her toes and infected wound has been treated with vancomycin. She receives vancomycin dose after dialysis. PHYSICAL EXAMINATION: Temperature 97.2 degrees Fahrenheit, heart rate 66 per minute and respiratory rate 18 per minute. Blood pressure 123/73 mmHg early this morning and 177/74 mmHg. Oxygen saturation is 97% on room air. She has mild facial edema and mildly distended neck veins. Head is atraumatic and there is no oral thrush or ulcers. Pupils are equal and reactive to light and sclera is anicteric. Heart: Sounds are regular and lungs with diminished breath sounds at bases. Abdomen: Soft and nontender and there is edema of lower abdominal wall and on her back. Lower extremities have significant edema. She has no cyanosis or clubbing. Neurologically she is awake, alert and oriented times three. She has a remote left [id number] amputation and right foot stump is wrapped in dressing. Today's labs show WBC count 6.8, hemoglobin 10.3 and hematocrit 33.9. Sodium 130, potassium 5.0, CO2 22, BUN 44 and creatinine 4.07. Glucose 153 and calcium 8.3. A C-reactive protein is 5.72. PROBLEMS: 1. End-stage renal disease. The patient is scheduled for dialysis later today and we will plan to dialyze her for 4 hours and try to remove about 6 liters of fluid. 2. Hyponatremia related to noncompliance with fluid restriction and volume overload. This will be at least partially corrected with dialysis today. We will plan to remove about 6 liters of fluid as tolerated. I would like to get frequent dialysis with ultrafiltration however, she has been declining it. 3. Hyponatremia. This is worsening and related to noncompliance with fluid restriction and dialysis treatments. This will be corrected at least partially with dialysis today. 4. Anemia. Her anemia is stable and we will continue with Aranesp treatment once a week. 5. Nonhealing and infected wound on right foot following amputation of toes. The patient is currently on vancomycin after each dialysis. Pharmacy has been checking the level and I do not see any level done since the . She will receive vancomycin today after dialysis.
[2018-02-19] MEDS: ATORVASTATIN 20 MG TAB PO SCH (21:10)
[2018-02-19 22:00] VITALS: BP 151/74
[2018-02-20] VITALS (7 sets, daily range): BP systolic 133–152; BP diastolic 57–80
[2018-02-20] MEDS: HEPARIN SOD (PORCINE) 5000 UNITS/ML VIAL SQ SCH ×3 (06:00→20:56)
[2018-02-20] MEDS: **hydrALAZINE** 10 MG TAB PO SCH ×3 (06:13→20:55)
[2018-02-20] MEDS: DAKIN'S 0.25% HALF-STRENGTH SOLN 480 ML TOP SCH ×3 (06:13→22:00)
[2018-02-20] MEDS: guaiFENesin ER 600 MG TAB PO SCH ×2 (08:50→20:55)
[2018-02-20] MEDS: HumaLOG INSULIN (NovoLOG) PER UNIT SC SCH ×4 (08:51→20:56)
[2018-02-20] MEDS: LEVEMIR (INSULIN DETEMIR) 1 UNITS/0.01ML SC SCH (08:52)
[2018-02-20] MEDS: CLOPIDOGREL 75 MG TAB PO SCH (08:52)
[2018-02-20] MEDS: SERTRALINE 100 MG TAB PO SCH (08:53)
[2018-02-20] MEDS: CANDESARTAN 4MG TABLET PO SCH (08:53)
[2018-02-20] MEDS: METOPROLOL TART 50 MG TAB PO SCH ×2 (08:53→20:55)
[2018-02-20] MEDS: ALPRAZolam 0.5 MG TAB PO SCH ×3 (08:53→20:55)
[2018-02-20] MEDS: ASPIRIN 81 MG ENTERIC TAB PO SCH (08:53)
[2018-02-20] MEDS: NYSTATIN 100,000 UNITS/GM TOPICAL PWD 15 GM TOP SCH ×2 (08:54→20:57)
[2018-02-20] MEDS: FAMOTIDINE 20 MG TAB PO SCH (08:54)
[2018-02-20] MEDS: FLUTICASONE PROP 0.05% NASAL SPRAY 16 GM (FLONASE) SCH ×2 (08:55→20:57)
--- NOTE | 2018-02-20 12:36 | IPNPDOC ---
Subjective Date Seen The patient was seen on 02/20/18. Subjective Chief Complaint/HPI Pt not feeling good as usual, wanting to go home for holiday. Objective Physical Examination General Exam: Positive: Alert, Cooperative, Moderate Distress, Other (drowsy) Eye Exam: Positive: PERRLA, EOMI ENT Exam: Positive: Atraumatic, Other ENT (facial swelling) Neck Exam: Positive: Supple; Negative: JVD Chest Exam: Positive: Clear to auscultation, Normal air movement, Diminished (breath sounds aden); Negative: Rales, Rhonchi, Wheezing, Other Heart Exam: Positive: Rate Normal, Regular Rhythm, Normal S1, Normal S2; Negative: Gallops, Murmurs, Rubs, Other Abdomen Exam: Positive: Normal bowel sounds, Soft; Negative: Tenderness Extremity Exam: Positive: Edema, Tenderness, Other (LLE s/p BKA, Right stump nonhealing wound covered with a thick layer of necrotic tissue with some draina ge, the wound edges purple red with edema.); Negative: Clubbing, Cyanosis Neuro Exam: Positive: Normal Speech, Strength at 5/5 X4 ext, Cranial Nerves 3- 12 NL Psych Exam: Positive: Anxiety, Oriented x 3 Assessment /Plan Assessment 1. Rt foot nonhealing stump wound with infection. 2. DM poorly controlled. Plan/VTE VTE Prophylaxis Ordered?: Yes Plan Continue current regimen as per hospital medicine. NPO after breakfast Rt foot stump wound debridement this pm. VS, I&O, 24H, Fishbone Vital Signs/I&O Vital Signs Date Time Temp Pulse Resp B/P (MAP) Pulse Ox O2 Delivery O2 Flow Rate FiO2 02/20/18 08:53 96 152/80 02/20/18 06:00 97.9 17 96 Room Air I&O- Last 24 Hours up to 6 AM 02/20/18 06:00 Intake Total 900 ml Output Total 5500 ml Balance -4600 ml Laboratory Data 24H LABS Laboratory Tests 2 02/19/18 20:24: Bedside Glucose (Misc Panel) 211H 02/20/18 07:19: Bedside Glucose (Misc Panel) 471H 02/20/18 11:30: Bedside Glucose (Misc Panel) 572*H PADMINI FIGUEROA PA-C Feb 20, 2018 12:36
[2018-02-20] MEDS: oxyCODONE 5MG TAB PO PRN (14:30)
[2018-02-20] MEDS: **VANCO AFTER HD** MISC XX SCH (16:00)
--- NOTE | 2018-02-20 16:05 | IPNPDOC ---
Text Note Date of Service The patient was seen on 02/20/18. NOTE Subjective: Patient is a 57 year old female with a PMHx of CAD s/p stent, PVD s/p L BKA, IDDM2, COPD, ESRD on HD (TTS), Hx of non-compliance who presented to the ER with SOB, N/V and diarrhea. Patient noted that she had received HD as s cheduled but she was found to be positive for C. diff colitis. Patient was admitted to the hospitalist service for further evaluation and treatment. Patient was seen and examined at the bedside. Currently she denies any N/V, abdominal pain, C/D or dysuria. Denies CP, SOB or palpitations. Objective: Vitals (See below) General: Lying in bed, no acute distress, comfortable, AAOx3 HEENT: NC, AT CVS: RRR, +S1S2 Lungs: Fair air entry b/l, -w/r/r Abdomen: Soft, ND, NT Extremities: - Edema, - Calf tenderness, L BKA Assessment and plan: IDDM2 - c/w ISS and Levemir Right foot metatarsal amputation with ulcer - Hx of Wound culture 10/29: with Enterococcus faecalis, Staphylococcus aureus, Corynebacteria - No leukocytosis / Improving CRP - CT R foot 02/16: 1. Status post distal forefoot amputation at the distal ends of the first through fifth metatarsals. I do not see a definite subcutaneous emphysema or visible drainable fluid collection to suggest gangrene or abscess. There is some soft tissue swelling and edema, and irregularity of the flap that suggests it has not healed. 2. I do not see a significant change in the appearance of the bones since the study 4 weeks ago. - c/w Vancomycin with HD - Will be evaluated by vascular surgery (Dr. Stern); on consult ESRD on HD - c/w HD on TTS - Nephrology on consult s/p C. diff colitis - Diarrhea resolved CAD s/p stent - c/w ASA, Plavix and Atorvastatin Systolic / Diastolic CHF - likely 2/2 Ischemic cardiomyopathy - No signs of fluid overload - c/w HD - c/w ASA, Plavix and Atorvastatin HTN - BP well controlled - c/w Candesartan, Hydralazine, Metoprolol DLP - c/w ASA and Atorvastatin COPD - no evidence of exacerbation - c/w inhaled therapy as ordered Anxiety - c/w Sertraline Medical non-compliance - complicating medical care GERD - c/w Famotidine DVT prophylaxis - c/w Heparin Prognosis: - Guarded VS,Fishbone, I+O VS, Fishbone, I+O Vital Signs Date Time Temp Pulse Resp B/P (MAP) Pulse Ox O2 Delivery O2 Flow Rate FiO2 02/20/18 14:30 20 Room Air 02/20/18 14:00 138/80 02/20/18 08:53 96 02/20/18 06:00 97.9 96 I&O- Last 24 Hours up to 6 AM 02/20/18 06:00 Intake Total 900 ml Output Total 5500 ml Balance -4600 ml JUANCHO MOSLEY MD Feb 20, 2018 16:05
[2018-02-20] MEDS ORDERED: MIDAZOLAM INJ 2 MG/2 ML VIAL (J2250) As Ordered ONE (18:46)
[2018-02-20] MEDS ORDERED: LIDOCAINE 2% INJ 100 MG/5 ML SDV (FOR ANES.) As Ordered ONE (18:46)
[2018-02-20] MEDS ORDERED: fentaNYL 100 MCG/2 ML INJECTION (J3010) As Ordered ONE (18:46)
[2018-02-20] MEDS ORDERED: PROPOFOL 200 MG/20 ML VIAL As Ordered ONE (18:46)
[2018-02-20] MEDS: VANCOMYCIN HCL 750 MG, VIAL MATE ADAPTER 1 EACH in D5W 250 ML IV SCH (19:50)
[2018-02-20] MEDS: ANEXSIA, NORCO 7.5MG/325MG TABLET(HYDROCODONE/APAP) PO PRN (19:50)
[2018-02-20] MEDS: ATORVASTATIN 20 MG TAB PO SCH (20:54)
--- NOTE | 2018-02-20 20:57 | IPN ---
DATE: 02/20/2018 Mrs. Ibarra is seen this morning on her bedside. She is sitting in the bed and wants to go home for Thanksgiving. She was dialyzed yesterday and has been seen by physician anesthesiologist assistant certified from vascular surgery. There is a concern about her foot stump not feeling and necrotic tissue. She is likely to require further debridement or further amputation. In the meantime, she also has massive volume overload and we are trying to correct her volume status with dialysis. PHYSICAL EXAMINATION Temperature is 97.9 degrees Fahrenheit, heart rate 80 per minute and respiratory rate 18 per minute. Blood pressure 152/80 mmHg and oxygen saturation 96% on room air. Mild facial edema is still present. Head is atraumatic. Neck veins are mildly distended and there is no oral thrush or ulcers. Heart: Sounds are regular and lungs with slightly diminished breath sounds at bases. Abdomen is soft and nontender and abdominal wall edema has improved. She has still trace of back edema. Extremities have no cyanosis or clubbing. Lower extremity edema has also improved significantly. Her right foot stump is wrapped in dressing and she has a remote left [id number] amputation. The patient did not have any new labs done today. Yesterday's labs have already been reviewed. PROBLEMS: 1. End-stage renal disease. The patient was dialyzed yesterday and she wants to go home tomorrow for Thanksgiving. I am going to try to dialyze her again this afternoon and we will also try to remove fluid at least 4 liters with dialysis today. 2. Hyponatremia. This is related to volume overload in the setting of end-stage renal disease and hyperglycemia. We anticipate improvement in her sodium level with dialysis and fluid removal. We are going to remove about 4 liters of fluid with dialysis today. 3. Volume overload with generalized edema. Her volume status remains decompensated but much improved compared to last week. We have removed 5-1/2 liters of fluid was last two treatments. Today we are planning to remove at least 4 more liters. I have stressed upon the patient to follow her fluid restriction if she wants to get her foot healed. 4. Anemia. Her anemia is stable and improving. We will continue with Aranesp once a week during dialysis. 5. Infected right foot stump. The patient has been on vancomycin after each dialysis and we will continue with the same.
[2018-02-21 02:00] VITALS: BP 133/60
[2018-02-21] MEDS: SENNA 8.6 MG TAB (SENOKOT) PO PRN (03:06)
[2018-02-21] MEDS: ANEXSIA, NORCO 7.5MG/325MG TABLET(HYDROCODONE/APAP) PO PRN (03:07)
[2018-02-21] MEDS: DAKIN'S 0.25% HALF-STRENGTH SOLN 480 ML TOP SCH ×3 (05:56→21:03)
[2018-02-21] MEDS: HEPARIN SOD (PORCINE) 5000 UNITS/ML VIAL SQ SCH ×3 (05:56→21:03)
[2018-02-21] MEDS: **hydrALAZINE** 10 MG TAB PO SCH ×3 (05:57→21:05)
[2018-02-21 06:00] VITALS: BP 159/70
[2018-02-21 06:00] LABS: HEMATOCRIT 32.5 % (36.0-47.0); HEMOGLOBIN 9.8 g/dl (12.0-15.5); MEAN CORPUSCULAR HEMOGLOBIN 25.6 pg (27.0-33.0); MEAN CORPUSCULAR HGB CONC 30.2 g/dl (32.0-36.5); MEAN CORPUSCULAR VOLUME 84.9 fl (80.0-96.0); PLATELET COUNT, AUTOMATED 208 10^3/uL (150-450); RED BLOOD COUNT 3.83 10^6/uL (4.00-5.40)
[2018-02-21 06:29] LABS: C REACTIVE PROTEIN QUANTITATIV 4.66 MG/DL (0.00-0.30); CALCIUM LEVEL 7.5 MG/DL (8.5-10.1); CREATININE FOR GFR 2.88 MG/DL (0.55-1.30); POTASSIUM SERUM 4.1 MEQ/L (3.5-5.1)
[2018-02-21] MEDS: HumaLOG INSULIN (NovoLOG) PER UNIT SC SCH ×4 (06:37→21:00)
[2018-02-21] MEDS: LEVEMIR (INSULIN DETEMIR) 1 UNITS/0.01ML SC SCH (07:25)
[2018-02-21 10:00] VITALS: BP 161/55
[2018-02-21] MEDS: CANDESARTAN 4MG TABLET PO SCH (10:24)
[2018-02-21] MEDS: ASPIRIN 81 MG ENTERIC TAB PO SCH (10:24)
[2018-02-21] MEDS: FAMOTIDINE 20 MG TAB PO SCH (10:24)
[2018-02-21] MEDS: guaiFENesin ER 600 MG TAB PO SCH ×2 (10:24→21:02)
[2018-02-21] MEDS: CLOPIDOGREL 75 MG TAB PO SCH (10:25)
[2018-02-21] MEDS: SERTRALINE 100 MG TAB PO SCH (10:25)
[2018-02-21] MEDS: oxyCODONE 5MG TAB PO PRN ×2 (10:25→16:17)
[2018-02-21] MEDS: ALPRAZolam 0.5 MG TAB PO SCH ×3 (10:25→21:02)
[2018-02-21] MEDS: NYSTATIN 100,000 UNITS/GM TOPICAL PWD 15 GM TOP SCH ×2 (10:26→21:00)
[2018-02-21] MEDS: METOPROLOL TART 50 MG TAB PO SCH ×2 (10:26→21:03)
[2018-02-21] MEDS: FLUTICASONE PROP 0.05% NASAL SPRAY 16 GM (FLONASE) SCH ×2 (10:26→21:00)
--- NOTE | 2018-02-21 12:17 | IPNPDOC ---
Text Note Date of Service The patient was seen on 02/21/18. NOTE Subjective: Patient is a 57 year old female with a PMHx of CAD s/p stent, PVD s/p L BKA, IDDM2, COPD, ESRD on HD (TTS), Hx of non-compliance who presented to the ER with SOB, N/V and diarrhea. Patient noted that she had received HD as scheduled but she was found to be positive for C. diff colitis. Patient was admitted to the hospitalist service for further evaluation and treatment. Patient was seen and examined at the bedside. Currently patient has no new complaints. Notes that she is going to have difficulty getting home today. Denies any CP, SOB, palpitations, N/V, abdominal pain, C/D. Objective: Vitals (See below) General: Lying in bed, no acute distress, comfortable, AAOx3 HEENT: NC, AT CVS: RRR, +S1S2 Lungs: Fair air entry b/l, no evidence of rhonchi / rales / wheezing Abdomen: Soft, ND, Remain non-tender Extremities: No evidence of edema, - Calf tenderness, L BKA, R foot in dressing Assessment and plan: IDDM2 - c/w ISS and Levemir Right foot metatarsal amputation with ulcer - Hx of Wound culture 10/29: with Enterococcus faecalis, Staphylococcus aureus, Corynebacteria - No leukocytosis / Improving CRP - CT R foot 02/16: 1. Status post distal forefoot amputation at the distal ends of the first through fifth metatarsals. I do not see a definite subcutaneous emphysema or visible drainable fluid collection to suggest gangrene or abscess. There is some soft tissue swelling and edema, and irregularity of the flap that suggests it has not healed. 2. I do not see a significant change in the appearance of the bones since the study 4 weeks ago. - c/w Vancomycin with HD - Vascular surgery (Dr. Stern) on consult; s/p Right foot debridement - 02/20/2018 ESRD on HD - c/w HD on TTS - Nephrology on consult s/p C. diff colitis - GI Panel 01/16: C. Diff A/B - Diarrhea resolved CAD s/p stent - c/w ASA, Plavix and Atorvastatin Systolic / Diastolic CHF - likely 2/2 Ischemic cardiomyopathy - No signs of fluid overload - c/w HD - c/w ASA, Plavix and Atorvastatin HTN - BP well controlled - c/w Candesartan, Hydralazine, Metoprolol DLP - c/w ASA and Atorvastatin COPD - no evidence of exacerbation - c/w inhaled therapy as ordered Anxiety - c/w Sertraline Medical non-compliance - complicating medical care GERD - c/w Famotidine DVT prophylaxis - c/w Heparin Prognosis: - Guarded Disposition: - Approaching euvolemia - Wound addressed - Possible evaluation of fistula VS,Judie, I+O VS, Judie, I+O Laboratory Tests 02/21/18 05:46 Red Blood Count 3.83 L, Mean Corpuscular Volume 84.9, Mean Corpuscular Hemoglobin 25.6 L, Mean Corpuscular Hemoglobin Concent 30.2 L, Red Cell Distribution Width 24.4 H, Calcium Level 7.5 L Vital Signs Date Time Temp Pulse Resp B/P (MAP) Pulse Ox O2 Delivery O2 Flow Rate FiO2 02/21/18 10:55 18 02/21/18 10:26 63 159/70 02/21/18 10:00 97.9 97 Room Air I&O- Last 24 Hours up to 6 AM 02/21/18 06:00 Intake Total 845 ml Output Total 4000 ml Balance -3155 ml JUANCHO MOSLEY MD Feb 21, 2018 12:17
[2018-02-21] MEDS ORDERED: ISOVUE-300 61% 50ML VIAL (Q9967) As Ordered ONE (13:10)
[2018-02-21] MEDS ORDERED: LIDOCAINE 2% MDV 20 ML VIAL As Ordered ONE (13:10)
[2018-02-21] MEDS ORDERED: methylPREDNISolone INJ 125 MG/2 ML VIAL (J2930) IV ONE (14:30)
[2018-02-21] MEDS ORDERED: diphenhydrAMINE INJ 50MG/ML VIAL (J1200) IV ONE (14:30)
[2018-02-21 15:00] VITALS: BP 162/86
--- NOTE | 2018-02-21 15:17 | IPNPDOC ---
Subjective Date Seen The patient was seen on 02/21/18. Subjective Chief Complaint/HPI Foot pain improved. Objective Physical Examination General Exam: Positive: Alert, Cooperative, Moderate Distress, Other (drowsy) Eye Exam: Positive: PERRLA, EOMI ENT Exam: Positive: Atraumatic, Other ENT (facial swelling) Neck Exam: Positive: Supple; Negative: JVD Chest Exam: Positive: Clear to auscultation, Normal air movement, Diminished (breath sounds aden); Negative: Rales, Rhonchi, Wheezing, Other Heart Exam: Positive: Rate Normal, Regular Rhythm, Normal S1, Normal S2; Negative: Gallops, Murmurs, Rubs, Other Abdomen Exam: Positive: Normal bowel sounds, Soft; Negative: Tenderness Extremity Exam: Positive: Edema, Tenderness, Other (LLE s/p BKA, Right stump wound covered with Kerlix, no drainage ); Negative: Clubbing, Cyanosis Neuro Exam: Positive: Normal Speech, Strength at 5/5 X4 ext, Cranial Nerves 3- 12 NL Psych Exam: Positive: Anxiety, Oriented x 3 Assessment /Plan Assessment S/p debridement of Rt foot stump wound. pt doing well. Plan/VTE VTE Prophylaxis Ordered?: Yes Plan Continue current regimen as per hospital medicine. Wound care: wet to dry with quarter string Dakins daily, No foam. VS, I&O, 24H, Fishbone Vital Signs/I&O Vital Signs Date Time Temp Pulse Resp B/P (MAP) Pulse Ox O2 Delivery O2 Flow Rate FiO2 02/21/18 10:55 18 02/21/18 10:26 63 159/70 02/21/18 10:00 97.9 97 Room Air I&O- Last 24 Hours up to 6 AM 02/21/18 06:00 Intake Total 845 ml Output Total 4000 ml Balance -3155 ml Laboratory Data 24H LABS Laboratory Tests 2 02/20/18 19:39: Bedside Glucose (Misc Panel) 110H 02/21/18 05:38: Bedside Glucose (Misc Panel) 543*H 02/21/18 05:46: Nucleated Red Blood Cells % (auto) 0.0, Anion Gap 8, Glomerular Filtration Rate 18.0L, Blood Urea Nitrogen 19#H, Creatinine 2.88H, Sodium Level 130L, Potassium Level 4.1, Chloride Level 95L, Carbon Dioxide Level 27, Calcium Level 7.5L, C- Reactive Protein, Quantitative 4.66H 02/21/18 07:06: Bedside Glucose (Misc Panel) 513*H 02/21/18 12:45: Bedside Glucose (Misc Panel) 380H CBC/BMP Laboratory Tests 02/21/18 05:46 Red Blood Count 3.83 L, Mean Corpuscular Volume 84.9, Mean Corpuscular Hemoglobin 25.6 L, Mean Corpuscular Hemoglobin Concent 30.2 L, Red Cell Distribution Width 24.4 H, Calcium Level 7.5 L PADMINI FIGUEROA PA-C Feb 21, 2018 15:17
[2018-02-21] MEDS: **VANCO AFTER HD** MISC XX SCH (16:00)
[2018-02-21 18:00] VITALS: BP 160/84
--- NOTE | 2018-02-21 19:06 | IPN ---
DATE: 02/21/2018 Ms. Ibarra is seen this morning on her bedside. She is sitting in the wheelchair and waiting for her son's call to go home. She wanted to go home for Thanksgiving; however, she has nobody to pick her up. She did undergo dialysis yesterday in preparation for going home today. Her lower extremity edema has improved significantly. She also had a debridement of her right foot stump last evening. There is a question for need for angioplasty of her right arm atrioventricular (AV) fistula by Dr. Stern, but no definite schedule is known at this point. PHYSICAL EXAMINATION: Temperature 97.8 degrees Fahrenheit, heart rate 62 per minute and respiratory rate 18 per minute. Blood pressure 159/70 mmHg and oxygen saturation is 98% on room air. Her head is atraumatic. Neck is supple and there is no jugular venous distention (JVD) sitting upright. There is no oral thrush or ulcers and mucous membranes are moist and healthy. Heart sounds are regular. Lung sounds clear to auscultation. Abdomen soft and nontender and without a palpable organomegaly. Bowel sounds are normal. Extremities have no cyanosis or clubbing. Right arm AV fistula is patent, but not very well developed. Her right foot stump is wrapped in dressing. She has a remote left [id number] amputation. Neurologically she is awake, alert and oriented times three and at her baseline mentation. Today's labs show WBC count 6.0, hemoglobin 9.8 and hematocrit 32.5. Platelets 208. Chemistry showed glucose 540 this morning, sodium 130 and potassium 4.1. BUN is 19 and creatinine 2.88. PROBLEMS: 1. End-stage renal disease. The patient was dialyzed two days in a low and during this week alone, we took off about 14 liters of fluid. She is very well dialyzed at this point and we will plan to dialyze her again on Monday. She will be dialyzed in the hospital if she does not get discharged and she is being advised to go to outpatient clinic if she gets discharged today. 2. Hypervolemia and generalized edema. She has chronic hypervolemia with chronic stasis changes and thickness of her skin. We removed 14 liters of fluid just this week and she is being advised to follow her fluid restriction of 1500 mL per day. We have been trying to aggressively remove fluid, which she had built up over the last few weeks. 3. Hyponatremia. She has mild chronic hyponatremia; however, today she also has pseudohyponatremia due to hyperglycemia. Overall, her sodium level and volume status has improved significantly over last few days with aggressive fluid removal. 4. Infected and nonhealing right foot wound. She had amputation of her toes due to gangrenous changes. She has generalized edema, particularly of her right lower extremity and poor circulation with delayed healing of her wound. She had a debridement done yesterday due to necrotic tissue and remains on intravenous vancomycin. 5. Anemia. Her anemia has been stable and improved. She receives Aranesp once a week during dialysis. DISPOSITION: From a renal standpoint, the patient is well dialyzed and if she gets discharged today, then she will return to outpatient dialysis clinic on Monday.
[2018-02-21] MEDS: ATORVASTATIN 20 MG TAB PO SCH (21:02)
[2018-02-21 22:00] VITALS: BP 135/53
[2018-02-22 02:00] VITALS: BP 130/60
[2018-02-22 06:00] VITALS: BP 130/77
[2018-02-22] MEDS: DAKIN'S 0.25% HALF-STRENGTH SOLN 480 ML TOP SCH ×3 (06:00→21:51)
[2018-02-22] MEDS: HEPARIN SOD (PORCINE) 5000 UNITS/ML VIAL SQ SCH ×3 (06:00→21:50)
[2018-02-22] MEDS: **hydrALAZINE** 10 MG TAB PO SCH ×3 (06:00→21:46)
[2018-02-22] MEDS: ANEXSIA, NORCO 7.5MG/325MG TABLET(HYDROCODONE/APAP) PO PRN ×3 (06:43→21:45)
[2018-02-22 08:35] LABS: HEMATOCRIT 32.6 % (36.0-47.0); MEAN CORPUSCULAR HEMOGLOBIN 25.5 pg (27.0-33.0); MEAN CORPUSCULAR HGB CONC 30.7 g/dl (32.0-36.5); MEAN CORPUSCULAR VOLUME 83.2 fl (80.0-96.0); PLATELET COUNT, AUTOMATED 237 10^3/uL (150-450); RED BLOOD COUNT 3.92 10^6/uL (4.00-5.40); WHITE BLOOD COUNT 6.6 10^3/uL (4.0-10.0)
[2018-02-22 08:56] LABS: C REACTIVE PROTEIN QUANTITATIV 4.83 MG/DL (0.00-0.30); CREATININE FOR GFR 3.7 MG/DL (0.55-1.30); GLOMERULAR FILTRATION RATE 13.5 (>51); POTASSIUM SERUM 4.3 MEQ/L (3.5-5.1)
[2018-02-22] MEDS: LEVEMIR (INSULIN DETEMIR) 1 UNITS/0.01ML SC SCH (09:27)
[2018-02-22] MEDS: LACTULOSE 20 GM/30 ML SYRUP UD PO PRN (09:28)
[2018-02-22] MEDS: CLOPIDOGREL 75 MG TAB PO SCH (09:28)
[2018-02-22] MEDS: FAMOTIDINE 20 MG TAB PO SCH (09:28)
[2018-02-22] MEDS: HumaLOG INSULIN (NovoLOG) PER UNIT SC SCH ×4 (09:28→21:00)
[2018-02-22] MEDS: SERTRALINE 100 MG TAB PO SCH (09:29)
[2018-02-22] MEDS: ALPRAZolam 0.5 MG TAB PO SCH ×3 (09:29→21:45)
[2018-02-22] MEDS: ASPIRIN 81 MG ENTERIC TAB PO SCH (09:29)
[2018-02-22] MEDS: CANDESARTAN 4MG TABLET PO SCH (09:30)
[2018-02-22] MEDS: guaiFENesin ER 600 MG TAB PO SCH ×2 (09:30→21:45)
[2018-02-22] MEDS: oxyCODONE 5MG TAB PO PRN ×4 (09:31→17:30)
[2018-02-22] MEDS: FLUTICASONE PROP 0.05% NASAL SPRAY 16 GM (FLONASE) SCH ×2 (09:35→21:00)
[2018-02-22] MEDS: NYSTATIN 100,000 UNITS/GM TOPICAL PWD 15 GM TOP SCH ×2 (09:35→21:00)
[2018-02-22] MEDS: METOPROLOL TART 50 MG TAB PO SCH ×2 (09:41→21:45)
--- NOTE | 2018-02-22 11:05 | IPNPDOC ---
Text Note Date of Service The patient was seen on 02/22/18. NOTE Subjective: Patient is a 57 year old female with a PMHx of CAD s/p stent, PVD s/p L BKA, IDDM2, COPD, ESRD on HD (TTS), Hx of non-compliance who presented to the ER with SOB, N/V and diarrhea. Patient noted that she had received HD as scheduled but she was found to be positive for C. diff colitis. Patient was admitted to the hospitalist service for further evaluation and treatment. Patient was seen and examined at the bedside. Currently denies any CP, SOB, palpitations. N/V, abdominal pain, C/D. She was evaluate by vascular surgery yesterday for evaluation of her fistula. Objective: Vitals (See below) General: Lying in bed, no acute distress, comfortable, AAOx3 HEENT: NC, AT CVS: RRR, +S1S2 Lungs: Fair air entry b/l, auscultation is without any wheezing / rales / rhonchi Abdomen: Soft, ND, Remain non-tender Extremities: No evidence of edema, - Calf tenderness, L BKA, R foot in dressing Assessment and plan: IDDM2 - c/w ISS and Levemir Right foot metatarsal amputation with ulcer - Hx of Wound culture 10/29: with Enterococcus faecalis, Staphylococcus aureus, Corynebacteria - No leukocytosis / Improving CRP - CT R foot 02/16: 1. Status post distal forefoot amputation at the distal ends of the first through fifth metatarsals. I do not see a definite subcutaneous emphysema or visible drainable fluid collection to suggest gangrene or abscess. There is some soft tissue swelling and edema, and irregularity of the flap that suggests it has not healed. 2. I do not see a significant change in the appearance of the bones since the study 4 weeks ago. - Vascular surgery (Dr. Stern) on consult; s/p Right foot debridement - 02/20/2018 - c/w Vancomycin with HD ESRD on HD - c/w HD on TTS - Dr. Stern (Vascular surgery) for right arm fistula evaluation / repair this coming week - Nephrology on consult s/p C. diff colitis - GI Panel 01/16: C. Diff A/B - Diarrhea resolved CAD s/p stent - c/w ASA, Plavix and Atorvastatin Systolic / Diastolic CHF - likely 2/2 Ischemic cardiomyopathy - No signs of fluid overload - c/w HD - c/w ASA, Plavix and Atorvastatin HTN - BP well controlled - c/w Candesartan, Hydralazine, Metoprolol DLP - c/w ASA and Atorvastatin COPD - no evidence of exacerbation - c/w inhaled therapy as ordered Anxiety - c/w Sertraline Medical non-compliance - complicating medical care GERD - c/w Famotidine DVT prophylaxis - c/w Heparin Prognosis: - Guarded Disposition: - Evaluation of fistula VS,Fishbone, I+O VS, Fishbone, I+O Laboratory Tests 02/22/18 07:56 Red Blood Count 3.92 L, Mean Corpuscular Volume 83.2, Mean Corpuscular Hemoglo bin 25.5 L, Mean Corpuscular Hemoglobin Concent 30.7 L, Red Cell Distribution Width 23.8 H, Calcium Level 8.0 L Vital Signs Date Time Temp Pulse Resp B/P (MAP) Pulse Ox O2 Delivery O2 Flow Rate FiO2 02/22/18 09:41 78 130/77 02/22/18 09:36 16 98 Room Air 02/22/18 06:00 98.4 I&O- Last 24 Hours up to 6 AM 02/22/18 06:00 Intake Total 1430 ml Output Total 0 ml Balance 1430 ml JUANCHO MOSLEY MD Feb 22, 2018 11:05
[2018-02-22 14:00] VITALS: BP 157/65
--- NOTE | 2018-02-22 14:12 | IPN ---
DATE: 02/22/2018 Mrs. Ibarra is seen this morning on her bedside. She is somewhat up upset as she could not go home yesterday. She is upset at her family more because they could not come to pick her up. He has no dyspnea, chest pain, nausea or vomiting. She had debridement of her right foot stump done and also had a fistulogram done yesterday. She still has a Perma-Cath present which is currently being used for dialysis. Patient denies any nausea or vomiting at present. PHYSICAL EXAMINATION: Temperature 98.4 degrees Fahrenheit, heart rate 78 per minute and respiratory rate 16 per minute. Blood pressure 130/76 mmHg and oxygen saturation 98% on room air. Head is atraumatic. Facial edema has improved significantly and she has no oral thrush or ulcers. Neck veins are not abnormally distended. Heart sounds are regular. Lungs clear to auscultation. Abdomen soft and nontender and without a palpable organomegaly. Bowel sounds are normal. Extremities have no cyanosis or clubbing. Right foot is wrapped in dressing and chronic edema on her lower extremities has improved significantly. Right arm atrioventricular (AV) fistula has a bruit and thrill present. Neurologically she is awake, alert and oriented times three. Today's labs show WBC count 6.6, hemoglobin 10.0 and hematocrit 32.6. Sodium 132, potassium 4.3, CO2 24, BUN 27 and creatinine 3.70. Glucose 299. PROBLEMS: 1. End-stage renal disease. Patient was dialyzed on Monday and yesterday she did not wish to have further dialysis. We will plan to dialyze her tomorrow. 2. Hypervolemia and lower extremity edema. Volume status has improved significantly with aggressive fluid removal during all this week. We will dialyze her tomorrow and try to remove at least 4-5 liters of fluid. 3. Hyponatremia. Sodium level is improving gradually as her volume status is improving and we anticipate further improvement with next hemodialysis. 4. Anemia. Her anemia is stable at present and we will continue with Aranesp once a week during dialysis. 5. Infected right foot stump wound. Patient did have the right main done and remains on intravenous vancomycin after dialysis. It remains to be seen how it heals. Her volume status has improved and edema of lower extremities has also improved significantly, which will help with her wound healing. 6. Right arm AV fistula. Her fistula is not maturing well and angioplasty could not be performed, as patient is allergic to radiocontrast dye. I will discuss with Dr. Stern for any other possible interventions. At present, we are using her catheter which is functioning reasonably well and at times she has required at the waist.
[2018-02-22] MEDS ORDERED: diphenhydrAMINE 25 MG CAP As Ordered ONE (15:21)
[2018-02-22] MEDS: **VANCO AFTER HD** MISC XX SCH (16:00)
[2018-02-22] MEDS: ATORVASTATIN 20 MG TAB PO SCH (21:44)
[2018-02-22 22:00] VITALS: BP 137/60
[2018-02-22] MEDS: GLUCOSE 4 GM CHEW TABLET PO PRN ×2 (22:17→23:14)
[2018-02-23 06:00] VITALS: BP 151/63
[2018-02-23] MEDS: **hydrALAZINE** 10 MG TAB PO SCH ×3 (06:00→20:42)
[2018-02-23] MEDS: DAKIN'S 0.25% HALF-STRENGTH SOLN 480 ML TOP SCH ×4 (06:00→20:43)
[2018-02-23 06:30] LABS: HEMATOCRIT 33.4 % (36.0-47.0); HEMOGLOBIN 9.8 g/dl (12.0-15.5); MEAN CORPUSCULAR HEMOGLOBIN 25.3 pg (27.0-33.0); MEAN CORPUSCULAR HGB CONC 29.3 g/dl (32.0-36.5); MEAN CORPUSCULAR VOLUME 86.1 fl (80.0-96.0); PLATELET COUNT, AUTOMATED 275 10^3/uL (150-450); RED BLOOD COUNT 3.88 10^6/uL (4.00-5.40); WHITE BLOOD COUNT 5.9 10^3/uL (4.0-10.0)
[2018-02-23] MEDS: HEPARIN SOD (PORCINE) 5000 UNITS/ML VIAL SQ SCH ×3 (06:48→20:41)
[2018-02-23] MEDS: NYSTATIN 100,000 UNITS/GM TOPICAL PWD 15 GM TOP SCH ×2 (06:49→20:44)
[2018-02-23] MEDS: SERTRALINE 100 MG TAB PO SCH (06:49)
[2018-02-23] MEDS: FAMOTIDINE 20 MG TAB PO SCH (06:49)
[2018-02-23] MEDS: CANDESARTAN 4MG TABLET PO SCH (06:49)
[2018-02-23] MEDS: guaiFENesin ER 600 MG TAB PO SCH ×2 (06:50→20:42)
[2018-02-23] MEDS: ALPRAZolam 0.5 MG TAB PO SCH ×3 (06:50→20:42)
[2018-02-23] MEDS: METOPROLOL TART 50 MG TAB PO SCH ×2 (06:50→20:42)
[2018-02-23] MEDS: ANEXSIA, NORCO 7.5MG/325MG TABLET(HYDROCODONE/APAP) PO PRN ×2 (06:51→17:09)
[2018-02-23 06:53] LABS: C REACTIVE PROTEIN QUANTITATIV 5.23 MG/DL (0.00-0.30); CALCIUM LEVEL 7.5 MG/DL (8.5-10.1); CREATININE FOR GFR 4.54 MG/DL (0.55-1.30); GLOMERULAR FILTRATION RATE 10.7 (>51); POTASSIUM SERUM 5.4 MEQ/L (3.5-5.1)
[2018-02-23] MEDS: CLOPIDOGREL 75 MG TAB PO SCH (06:53)
[2018-02-23] MEDS: ASPIRIN 81 MG ENTERIC TAB PO SCH (06:53)
[2018-02-23] MEDS: FLUTICASONE PROP 0.05% NASAL SPRAY 16 GM (FLONASE) SCH ×2 (06:56→20:43)
[2018-02-23] MEDS: HumaLOG INSULIN (NovoLOG) PER UNIT SC SCH ×4 (07:24→20:43)
[2018-02-23] MEDS: LEVEMIR (INSULIN DETEMIR) 1 UNITS/0.01ML SC SCH (07:24)
[2018-02-23 10:12] LABS: VANCOMYCIN RANDOM 17.3 UG/ML
--- NOTE | 2018-02-23 10:21 | PHACANCOPD ---
PHARMACY VANCOMYCIN DOSING Pt Demographics Demographics Patient Age:57 , Weight:75.800 , Gender: female Adjusted Body Weight Date: 01/17/18, Adjusted Body Weight: Kg Vancomycin Vancomycin indication: INFECTED FOOT WOUND Vancomycin Target Ranges: 15-20 mcg/ml Vancomycin Load Y/N: No Load Dose Date Time Vancomycin Load Dose: Date: Time: Vancomycin Dose Date: 02/15/18. Current Vancomycin Dose: [750mg after HD] Date: 01/17/18. Current Vancomycin Dose: [1GM AFTER HD] Intermittent Dosing?: No Labs Creatinine Clearance Date:01/17/18. Creatinine Clearance: . Assessment and Plan Maintaining Current Dose?: Yes Reason for dose change: No Dose Change Pharmacist Note Pharmacist Note 02/23/18: Random level this morning resulted at 17.3mcg/ml. The patient's last dose and dialysis session was 02/20/18, and the patient is scheduled to undergo dialysis today. We will continue the patient on her current regimen of 750mg of vancomycin given after dialysis. We will continue to monitor and make dose adjustments accordingly. 02/15: Patient was restarted on Vancomycin today due to increased pain in right foot. She is status post right foot metatarsal amputation with ulcer. She receives dialysis on Monday, and Saturdays. Patient has a history of E. faecalis, Staph aureus, and Corynebacteria for wound cultures. She was started on Vancomycin 750mg after dialysis. We will continue to monitor and make adjustments as necessary. 01/27/18: Random this AM resulted at 22.2mcg/ml. Level is coming down. I have scheduled a random for AM before next dialysis session to ensure appropriate level. We will continue to monitor and adjust dose as needed. 01/25/18: Random this AM resulted at 24.2mcg/ml. The patient is continuing to accumulate. I have lowered the dose to Vanco 750mg IV HD. We will continue to monitor and adjust dose as needed. 01/23: patient's trough is back in range today at 16.1 so we will resume her Vancomycin 1gm after HD today. She is receiving HD today. Her WBC is within normal limits and she is afebrile. She is waiting for consult from Dr. Stern to see what her next steps are for her wound care. WE will continue to monitor and make adjustments as necessary. 01/20: Patient's random came back at 32.8 today. Her vancomycin was put on hold due to the high random this morning. She is receiving dialysis today and we will reevaluate random in the morning. We will continue to monitor and make adjustments as necessary. Date: 01/17/18. Pharmacist note: Patient was started on Vancomycin today due to infected wound on her foot. Her previous wound cultures grew E.faecalis and MSSA. She is a dialysis patient with usual dialysis days of Monday, , and Monday. She has not received dialysis in over a week and therefore will receive dialysis today. They are unsure at this time what her dialysis schedule will be as they will be evaluating her day by day to see what her needs are. Currently she is set up with Vancomycin 1gm after HD and we will obtain a random level in the morning to make sure she is therapeutic range. We will continue to monitor and make adjustments as necessary. JAQUELINE TORIBIO PHARMACY Feb 23, 2018 10:20
[2018-02-23] MEDS ORDERED: HEPARIN 1,000 UNITS/ML 10ML VIAL (FOR RADIOLOGY& DIALYSIS ONLY) IV ONE (11:00)
[2018-02-23] MEDS ORDERED: FLUCONAZOLE 100 MG TAB PO ONE (11:00)
[2018-02-23] MEDS ORDERED: HEPARIN 1,000 UNITS/ML 10ML VIAL (FOR RADIOLOGY& DIALYSIS ONLY) XX ONE (11:00)
--- NOTE | 2018-02-23 12:08 | IPNPDOC ---
Text Note Date of Service The patient was seen on 02/23/18. NOTE Subjective: Patient is a 57 year old female with a PMHx of CAD s/p stent, PVD s/p L BKA, IDDM2, COPD, ESRD on HD (TTS), Hx of non-compliance who presented to the ER with SOB, N/V and diarrhea. Patient noted that she had received HD as scheduled but she was found to be positive for C. diff colitis. Patient was admitted to the hospitalist service for further evaluation and treatment. Patient was seen and examined at the bedside. Patient is anxious to get home. Denies any CP, SOB, palpitations, N/V, abdominal pain, C/D. Objective: Vitals (See below) General: Lying in bed, no acute distress, comfortable, AAOx3 HEENT: NC, AT CVS: RRR, +S1S2 Lungs: Fair air entry b/l, no evidence of rhonchi / rales / wheezing Abdomen: Soft, ND, Remain non-tender Extremities: No pitting ede3ma, - Calf tenderness, L BKA, R foot; dressing removed - reveals sloughed off tissue Assessment and plan: IDDM2 with Hyperglycemia and Hypoglycemia - c/w ISS and Levemir - Advised patient to remain compliant with dietary restrictions Right foot metatarsal amputation with ulcer - Hx of Wound culture 10/29: with Enterococcus faecalis, Staphylococcus aureus, Corynebacteria - No leukocytosis / Improving CRP - CT R foot 02/16: 1. Status post distal forefoot amputation at the distal ends of the first through fifth metatarsals. I do not see a definite subcutaneous emphysema or visible drainable fluid collection to suggest gangrene or abscess. There is some soft tissue swelling and edema, and irregularity of the flap that suggests it has not healed. 2. I do not see a significant change in the appearance of the bones since the study 4 weeks ago. - Vascular surgery (Dr. Stern) on consult; s/p Right foot debridement - 02/20/2018; will discuss with vascular surgery about further debridement - c/w Vancomycin with HD ESRD on HD - c/w HD on TTS - Dr. Stern (Vascular surgery) for right arm fistula evaluation / repair this coming week - Nephrology on consult - Will discuss with Dr. Stern s/p C. diff colitis - GI Panel 10/16: C. Diff A/B - Diarrhea resolved CAD s/p stent - c/w ASA, Plavix and Atorvastatin Systolic / Diastolic CHF - likely 2/2 Ischemic cardiomyopathy - No signs of fluid overload - c/w HD - c/w ASA, Plavix and Atorvastatin HTN - BP well controlled - c/w Candesartan, Hydralazine, Metoprolol DLP - c/w ASA and Atorvastatin COPD - no evidence of exacerbation - c/w inhaled therapy as ordered Anxiety - c/w Sertraline Medical non-compliance - complicating medical care GERD - c/w Famotidine DVT prophylaxis - c/w Heparin Prognosis: - Guarded Disposition: - Evaluation of fistula / further R foot debridement VS,Oc, I+O VS, Oc, I+O Laboratory Tests 02/23/18 05:51 Red Blood Count 3.88 L, Mean Corpuscular Volume 86.1, Mean Corpuscular Hemoglobin 25.3 L, Mean Corpuscular Hemoglobin Concent 29.3 L, Red Cell Distribution Width 23.3 H, Calcium Level 7.5 L Vital Signs Date Time Temp Pulse Resp B/P (MAP) Pulse Ox O2 Delivery O2 Flow Rate FiO2 02/23/18 06:51 20 02/23/18 06:50 70 132/60 02/23/18 06:00 97.3 100 Room Air I&O- Last 24 Hours up to 6 AM 02/23/18 06:00 Intake Total 2460 ml Output Total 0 ml Balance 2460 ml JUANCHO MOSLEY MD Feb 23, 2018 12:08
[2018-02-23] MEDS ORDERED: VANCOMYCIN HCL 750 MG, VIAL MATE ADAPTER 1 EACH in D5W 250 ML IV SCH (16:00)
[2018-02-23] MEDS: **VANCO AFTER HD** MISC XX SCH (16:00)
[2018-02-23 17:00] VITALS: BP 148/70
[2018-02-23] MEDS: ONDANSETRON 4 MG ORAL DISINTEGRATING TAB (Q0162 PER 1MG) PO PRN (19:33)
[2018-02-23] MEDS: ATORVASTATIN 20 MG TAB PO SCH (20:41)
[2018-02-23 22:00] VITALS: BP 163/57
[2018-02-24] MEDS: ANEXSIA, NORCO 7.5MG/325MG TABLET(HYDROCODONE/APAP) PO PRN ×2 (04:35→12:40)
[2018-02-24] MEDS: DAKIN'S 0.25% HALF-STRENGTH SOLN 480 ML TOP SCH ×3 (05:19→22:00)
[2018-02-24 06:00] VITALS: BP 161/73
[2018-02-24 06:35] LABS: HEMOGLOBIN 9.6 g/dl (12.0-15.5); MEAN CORPUSCULAR HEMOGLOBIN 24.9 pg (27.0-33.0); MEAN CORPUSCULAR HGB CONC 29.1 g/dl (32.0-36.5); MEAN CORPUSCULAR VOLUME 85.7 fl (80.0-96.0); PLATELET COUNT, AUTOMATED 267 10^3/uL (150-450); RED BLOOD COUNT 3.85 10^6/uL (4.00-5.40); WHITE BLOOD COUNT 4.7 10^3/uL (4.0-10.0)
[2018-02-24 06:57] LABS: C REACTIVE PROTEIN QUANTITATIV 5.57 MG/DL (0.00-0.30); CALCIUM LEVEL 7.4 MG/DL (8.5-10.1); CREATININE FOR GFR 3.52 MG/DL (0.55-1.30); GLOMERULAR FILTRATION RATE 14.3 (>51); POTASSIUM SERUM 4.6 MEQ/L (3.5-5.1)
[2018-02-24] MEDS: CANDESARTAN 4MG TABLET PO SCH (07:08)
[2018-02-24] MEDS: FAMOTIDINE 20 MG TAB PO SCH (07:09)
[2018-02-24] MEDS: HEPARIN SOD (PORCINE) 5000 UNITS/ML VIAL SQ SCH ×3 (07:09→21:44)
[2018-02-24] MEDS: HumaLOG INSULIN (NovoLOG) PER UNIT SC SCH ×4 (07:10→21:00)
[2018-02-24] MEDS: LEVEMIR (INSULIN DETEMIR) 1 UNITS/0.01ML SC SCH (07:10)
[2018-02-24] MEDS: **hydrALAZINE** 10 MG TAB PO SCH ×3 (07:10→21:44)
[2018-02-24] MEDS: METOPROLOL TART 50 MG TAB PO SCH ×2 (07:11→21:43)
[2018-02-24] MEDS: CLOPIDOGREL 75 MG TAB PO SCH (07:11)
[2018-02-24] MEDS: guaiFENesin ER 600 MG TAB PO SCH ×2 (07:11→21:43)
[2018-02-24] MEDS: SERTRALINE 100 MG TAB PO SCH (07:11)
[2018-02-24] MEDS: ALPRAZolam 0.5 MG TAB PO SCH ×3 (07:11→21:42)
[2018-02-24] MEDS: ASPIRIN 81 MG ENTERIC TAB PO SCH (07:12)
[2018-02-24] MEDS: NYSTATIN 100,000 UNITS/GM TOPICAL PWD 15 GM TOP SCH ×2 (07:41→21:45)
[2018-02-24] MEDS: FLUTICASONE PROP 0.05% NASAL SPRAY 16 GM (FLONASE) SCH ×2 (07:41→21:45)
[2018-02-24] MEDS: LACTULOSE 20 GM/30 ML SYRUP UD PO PRN ×2 (07:51→18:14)
--- NOTE | 2018-02-24 09:07 | IPN ---
DATE OF VISIT: 02/23/2018 Ms. Ibarra is seen this morning on her bedside. She is feeling about the same and reports that her foot dressing was changed this morning and foot looked good. She denies any nausea, vomiting, dyspnea, or chest pain. She has been afebrile on intravenous vancomycin after each dialysis. On physical exam, temperature 97.3 degrees Fahrenheit, heart rate 78 per minute, and respiratory rate 18 per minute. Blood pressure 132/60 mmHg, and oxygen saturation 98% on room air. Head: Is atraumatic. Neck is supple and without obvious jugular venous distention (JVD) or thyroid enlargement. She has no oral thrush or ulcers. Heart: Sounds are regular, and lungs sound clear to auscultation. Abdomen is soft and nontender. Extremities: Have no cyanosis or clubbing. Right foot stump is wrapped in dressing, and lower extremity edema is chronic and unchanged. She has a left gzren-[id number] amputation. Right arm arteriovenous (AV) fistula, where she had angioplasty, done is now completely thrombosed. Today's labs show WBC count 5.9, hemoglobin 9.8, and hematocrit 33.4. Platelets 275. Sodium 132, potassium 5.4, CO2 21, BUN 44, and creatinine 4.54. Glucose 320 and calcium 7.5. A random vancomycin level this morning is 17.3. PROBLEMS: 1. End-stage renal disease. Patient was last dialyzed on Monday, and we will plan to dialyze her again today. She is scheduled for dialysis this afternoon. I have discussed with patient, and she is agreeable to go for dialysis. We will try to remove about 5 liters of fluid today. 2. Hypervolemia/generalized edema. Volume status has much improved over last week. We have removed about 40 liters of excess fluid which has helped with her peripheral edema. We are going to remove 5 liters today with dialysis. 3. Hyponatremia. Mild hyponatremia is partly related to hyperglycemia and partly related to end-stage renal disease. This is likely to improve with dialysis and fluid removal today. 4. Hyperkalemia. Mild hyperkalemia is related to end-stage renal disease and this will also improved with dialysis today. 5. Infected wound, status post development of right foot stump. Patient remains on intravenous vancomycin. She receives 1 gram of vancomycin after each dialysis and levels are now therapeutic. She is being monitored by clinical pharmacy. 6. Thrombosed right arm arteriovenous fistula. I have let Dr. Stern know about her fistula. This was not developing even before, and it thrombosed after an attempted angioplasty. She is likely to require further intervention.
--- NOTE | 2018-02-24 11:31 | IPNPDOC ---
Text Note Date of Service The patient was seen on 02/24/18. NOTE Subjective: Patient is a 57 year old female with a PMHx of CAD s/p stent, PVD s/p L BKA, IDDM2, COPD, ESRD on HD (TTS), Hx of non-compliance who presented to the ER with SOB, N/V and diarrhea. Patient noted that she had received HD as scheduled but she was found to be positive for C. diff colitis. Patient was admitted to the hospitalist service for further evaluation and treatment. Patient was seen and examined at the bedside. Currently has no new complaints. Notes that she does not want to receive HD today. Denies any abdominal pain, CP, SOB, palpitations or cough. Reports some R foot pain. Objective: Vitals (See below) General: Lying in bed, no acute distress, comfortable, AAOx3 HEENT: NC, AT CVS: RRR, +S1S2 Lungs: Fair air entry b/l, no auscultated evidence of wheezing / rhonchi / rales Abdomen: Soft, ND, NT Extremities: No pitting edema at R leg, - Calf tenderness, L BKA, R foot - dressing intact Assessment and plan: IDDM2 with Hyperglycemia and Hypoglycemia - c/w ISS and Levemir - Advised patient to remain compliant with dietary restrictions Right foot metatarsal amputation with ulcer - Hx of Wound culture 10/29: with Enterococcus faecalis, Staphylococcus aureus, Corynebacteria - No leukocytosis / Improving CRP - CT R foot 02/16: 1. Status post distal forefoot amputation at the distal ends of the first through fifth metatarsals. I do not see a definite subcutaneous emphysema or visible drainable fluid collection to suggest gangrene or abscess. There is some soft tissue swelling and edema, and irregularity of the flap that suggests it has not healed. 2. I do not see a significant change in the appearance of the bones since the study 4 weeks ago. - Vascular surgery (Dr. Stern) on consult; s/p Right foot debridement - 02/20/2018; will evaluate today - c/w Vancomycin with HD ESRD on HD - c/w HD on TTS - Dr. Stern (Vascular surgery) for right arm fistula evaluation / repair this coming week - Nephrology on consult s/p C. diff colitis - GI Panel 01/16: C. Diff A/B - Diarrhea resolved CAD s/p stent - c/w ASA, Plavix and Atorvastatin Systolic / Diastolic CHF - likely 2/2 Ischemic cardiomyopathy - No signs of fluid overload - c/w HD - c/w ASA, Plavix and Atorvastatin HTN - BP well controlled - c/w Candesartan, Hydralazine, Metoprolol DLP - c/w ASA and Atorvastatin COPD - no evidence of exacerbation - c/w inhaled therapy as ordered Anxiety - c/w Sertraline Medical non-compliance - Complicating medical care GERD - c/w Famotidine DVT prophylaxis - c/w Heparin Prognosis: - Guarded Disposition: - Evaluation of fistula / further R foot debridement VS,Oc, I+O VS, Oc, I+O Laboratory Tests 02/24/18 06:08 Red Blood Count 3.85 L, Mean Corpuscular Volume 85.7, Mean Corpuscular Hemoglobin 24.9 L, Mean Corpuscular Hemoglobin Concent 29.1 L, Red Cell Distribution Width 23.2 H, Calcium Level 7.4 L Vital Signs Date Time Temp Pulse Resp B/P (MAP) Pulse Ox O2 Delivery O2 Flow Rate FiO2 02/24/18 07:10 163/57 02/24/18 06:00 99.4 64 18 94 Room Air I&O- Last 24 Hours up to 6 AM 02/24/18 06:00 Intake Total 1050 ml Output Total 5000 ml Balance -3950 ml JUANCHO MOSLEY MD Feb 24, 2018 11:31
[2018-02-24 14:25] VITALS: BP 140/56
[2018-02-24] MEDS: oxyCODONE 5MG TAB PO PRN ×2 (14:40→21:43)
[2018-02-24] MEDS: **VANCO AFTER HD** MISC XX SCH (16:00)
--- NOTE | 2018-02-24 16:10 | IPN ---
DATE: 02/24/2018 SUBJECTIVE: Patient seen and examined this morning at the bedside. I had a lengthy discussion with her about dialysis, but she is refusing her treatment today. She complains of poor sleep overnight. Her sugars remain very labile. VITAL SIGNS: Temperature 99, pulse 63, respiratory rate 18, blood pressure 141/56, saturating 98% on room air. Intake yesterday was 720. Dialysis yesterday removed 5000. Net negative 4280. Weight in the bed scale today was refused by the patient. GENERAL: She is seen sitting in a wheelchair eating lunch, comfortable. No acute distress. Extraocular muscles are intact. Tongue is moist. There is a right internal jugular (IJ) Perm-A-Cath. CARDIAC: Regular rate and rhythm. S1, S2. LUNGS: Clear to auscultation bilaterally. ABDOMEN: Soft and nontender. EXTREMITIES: Right foot stump is wrapped in dressings. She has pitting edema in the bilateral extremities. There is a left below-knee amputation. NEUROLOGIC: She is at her baseline mentation, awake, alert, and oriented. PSYCHIATRIC: She is frustrated. ABDOMEN: Soft and nontender. LABORATORY DATA: Sodium 130, potassium 4.6, glucose 544. Hemoglobin 9.6. INPATIENT MEDICATIONS: Reviewed by myself and no change from prior. PROBLEMS: 1. End-stage renal disease, on hemodialysis on a Monday, , Monday schedule. She was dialyzed off scheduled past week because of the . She was dialyzed on Monday, Monday, and Monday. She was supposed to be dialyzed today to bring her back to her usual schedule; however, she did refuse dialysis. She remains clinically volume overloaded and is noncompliant at baseline. 2. Systolic congestive heart failure with ejection fraction of 15% and also with concomitant diastolic dysfunction. She is hypervolemic. There is peripheral edema. Volume status is regulated via dialysis. She is refusing her treatment today. She will be dialyzed next on Monday. She is chronically noncompliant. In terms of her heart failure she continues on candesartan and metoprolol along with aspirin and statin. 3. Hypertension. Blood pressures are acceptable, and no changes are being made at present. 4. Insulin-dependent diabetes with very labile sugars, hyperglycemia and hypoglycemia. Insulin is adjusted as per the primary team. 5. Peripheral vascular disease. She continues on aspirin, statin, and Plavix. Her fistula has thrombosed. Dr. Stern will see her. She continues with local wound care for the right foot as well and with antimicrobials as per primary team. STARLA
[2018-02-24] MEDS: ATORVASTATIN 20 MG TAB PO SCH (21:42)
[2018-02-24 22:00] VITALS: BP 120/52
[2018-02-25 05:55] VITALS: BP 119/54
[2018-02-25] MEDS: HEPARIN SOD (PORCINE) 5000 UNITS/ML VIAL SQ SCH ×3 (05:56→23:14)
[2018-02-25] MEDS: **hydrALAZINE** 10 MG TAB PO SCH ×3 (05:56→23:15)
[2018-02-25] MEDS: DAKIN'S 0.25% HALF-STRENGTH SOLN 480 ML TOP SCH ×3 (05:57→22:00)
[2018-02-25 08:06] LABS: BASO # 0.1 10^3/uL (0.0-0.2); BASO % 2.2 % (0.0-1.0); EOS # 0.4 10^3/uL (0.0-0.50); EOS % 6.4 % (0.0-3.0); HEMATOCRIT 33.4 % (36.0-47.0); HEMOGLOBIN 10.1 g/dl (12.0-15.5); LYMPH # 1.1 10^3/uL (1.5-4.5); LYMPH % 16.7 % (24.0-44.0); MEAN CORPUSCULAR HEMOGLOBIN 25.6 pg (27.0-33.0); MEAN CORPUSCULAR HGB CONC 30.2 g/dl (32.0-36.5); MEAN CORPUSCULAR VOLUME 84.8 fl (80.0-96.0); MONO # 0.8 10^3/uL (0.0-0.8); MONO % 12.6 % (0.0-5.0); NEUTROPHILS # 3.8 10^3/uL (1.8-7.7); PLATELET COUNT, AUTOMATED 345 10^3/uL (150-450); RED BLOOD COUNT 3.94 10^6/uL (4.00-5.40); WHITE BLOOD COUNT 6.3 10^3/uL (4.0-10.0)
[2018-02-25] MEDS: CANDESARTAN 4MG TABLET PO SCH (08:08)
[2018-02-25] MEDS: SERTRALINE 100 MG TAB PO SCH (08:09)
[2018-02-25] MEDS: ASPIRIN 81 MG ENTERIC TAB PO SCH (08:09)
[2018-02-25] MEDS: METOPROLOL TART 50 MG TAB PO SCH ×2 (08:09→23:15)
[2018-02-25] MEDS: guaiFENesin ER 600 MG TAB PO SCH ×2 (08:09→23:14)
[2018-02-25] MEDS: ALPRAZolam 0.5 MG TAB PO SCH ×3 (08:09→23:14)
[2018-02-25] MEDS: CLOPIDOGREL 75 MG TAB PO SCH (08:09)
[2018-02-25] MEDS: FAMOTIDINE 20 MG TAB PO SCH (08:10)
[2018-02-25] MEDS: ANEXSIA, NORCO 7.5MG/325MG TABLET(HYDROCODONE/APAP) PO PRN ×2 (08:11→08:45)
[2018-02-25] MEDS: LEVEMIR (INSULIN DETEMIR) 1 UNITS/0.01ML SC SCH (08:13)
[2018-02-25] MEDS: HumaLOG INSULIN (NovoLOG) PER UNIT SC SCH ×4 (08:13→19:34)
[2018-02-25] MEDS: FLUTICASONE PROP 0.05% NASAL SPRAY 16 GM (FLONASE) SCH ×2 (08:14→23:16)
[2018-02-25] MEDS: NYSTATIN 100,000 UNITS/GM TOPICAL PWD 15 GM TOP SCH ×2 (08:14→23:16)
[2018-02-25 08:35] LABS: C REACTIVE PROTEIN QUANTITATIV 6.68 MG/DL (0.00-0.30); CALCIUM LEVEL 7.8 MG/DL (8.5-10.1); CREATININE FOR GFR 4.31 MG/DL (0.55-1.30); GLOMERULAR FILTRATION RATE 11.3 (>51); MAGNESIUM LEVEL 2.2 MG/DL (1.8-2.4); POTASSIUM SERUM 5.6 MEQ/L (3.5-5.1)
[2018-02-25] MEDS ORDERED: SOD POLYSTYRENE SULFONATE SUSP 15 GM/60 ML UD PO ONE (09:30)
--- NOTE | 2018-02-25 12:19 | IPNPDOC ---
Text Note Date of Service The patient was seen on 02/25/18. NOTE Subjective: Patient is a 57 year old female with a PMHx of CAD s/p stent, PVD s/p L BKA, IDDM2, COPD, ESRD on HD (TTS), Hx of non-compliance who presented to the ER with SOB, N/V and diarrhea. Patient noted that she had received HD as scheduled but she was found to be positive for C. diff colitis. Patient was admitted to the hospitalist service for further evaluation and treatment. Patient was seen and examined at the bedside. Has no new complaints this morning. Denies any CP, SOB or palpitations. Has not had any N/V, abdominal pain. Notes that her right foot occasionally experiences pain. Objective: Vitals (See below) General: Lying in bed, no acute distress, comfortable, AAOx3 HEENT: NC, AT CVS: RRR, +S1S2 Lungs: Fair air entry b/l, no evidence of rhonchi / wheezing / rales on auscultation Abdomen: Soft, ND, non-tender Extremities: No pitting edema at R leg, - Calf tenderness, L BKA, R foot - dressing intact Assessment and plan: IDDM2 with Hyperglycemia and Hypoglycemia - c/w ISS and Levemir - Advised patient to remain compliant with dietary restrictions Right foot metatarsal amputation with ulcer - Hx of Wound culture 10/29: with Enterococcus faecalis, Staphylococcus aureus, Corynebacteria - No leukocytosis / Improving CRP - CT R foot 02/16: 1. Status post distal forefoot amputation at the distal ends of the first through fifth metatarsals. I do not see a definite subcutaneous emphysema or visible drainable fluid collection to suggest gangrene or abscess. There is some soft tissue swelling and edema, and irregularity of the flap that suggests it has not healed. 2. I do not see a significant change in the appearance of the bones since the study 4 weeks ago. - Vascular surgery (Dr. Stern) on consult; s/p Right foot debridement - 02/20/2018; will possibly require further debridement - c/w Vancomycin with HD ESRD on HD - c/w HD on TTS - Dr. Stern (Vascular surgery) for right arm fistula evaluation / repair this coming week - Nephrology on consult s/p C. diff colitis - GI Panel 01/16: C. Diff A/B - Diarrhea resolved CAD s/p stent - c/w ASA, Plavix and Atorvastatin Systolic / Diastolic CHF - likely 2/2 Ischemic cardiomyopathy - No signs of fluid overload - c/w HD - c/w ASA, Plavix and Atorvastatin HTN - BP well controlled - c/w Candesartan, Hydralazine, Metoprolol DLP - c/w ASA and Atorvastatin COPD - no evidence of exacerbation - c/w inhaled therapy as ordered Anxiety - c/w Sertraline Medical non-compliance - Complicating medical care GERD - c/w Famotidine DVT prophylaxis - c/w Heparin Prognosis: - Guarded Disposition: - Evaluation of fistula / further R foot debridement VS,Oc, I+O VS, Oc, I+O Laboratory Tests 02/25/18 07:51 Red Blood Count 3.94 L, Mean Corpuscular Volume 84.8, Mean Corpuscular Hemoglobin 25.6 L, Mean Corpuscular Hemoglobin Concent 30.2 L, Red Cell Distribution Width 22.3 H, Neutrophils (%) (Auto) 61.0, Lymphocytes (%) (Auto) 16.7 L, Monocytes (%) (Auto) 12.6 H, Eosinophils (%) (Auto) 6.4 H, Basophils (%) (Auto) 2.2 H, Neutrophils # (Auto) 3.8, Lymphocytes # (Auto) 1.1 L, Monocytes # (Auto) 0.8, Eosinophils # (Auto) 0.4, Basophils # (Auto) 0.1, Calcium Level 7.8 L Vital Signs Date Time Temp Pulse Resp B/P (MAP) Pulse Ox O2 Delivery O2 Flow Rate FiO2 02/25/18 08:11 76 18 98 Room Air 02/25/18 08:09 119/54 02/25/18 05:55 97.2 l I&O- Last 24 Hours up to 6 AM 02/25/18 05:59 Intake Total 840 ml Output Total 0 ml Balance 840 ml JUANCHO MOSLEY MD Feb 25, 2018 12:19
[2018-02-25 14:00] VITALS: BP_SYST 132; BP_SYST 163; BP_DIAS 70; BP_DIAS 73
--- NOTE | 2018-02-25 14:57 | IPN ---
DATE OF SERVICE: 02/25/2018 SUBJECTIVE: Patient seen and examined this morning at the bedside. She refused dialysis yesterday. She is hyperkalemic today. She is given a dose of Kayexalate. She denies any new concerns. She is agreeable for dialysis tomorrow. VITAL SIGNS: Temperature 97.2, pulse 66, respiratory rate 18, blood pressure 119/54, saturating 95-98% on room air. Intake yesterday was 1300. Weight on the bed scale today is refused by the patient everyday. GENERAL: She is seen sitting in bed, no acute distress, eating. HEENT: Extraocular muscles are intact. Tongue is moist. PermaCath in the right IJ with dressing. CARDIAC: S1, S2 regular rate and rhythm. LUNGS: Clear to auscultation bilaterally. ABDOMEN: Soft and nontender. EXTREMITIES: The lower extremities have pitting edema that extends up to the hip, thigh and dependent area. The right foot stump has dressings. There is a left below-knee amputation. The right upper extremity brachiocephalic fistula has thrill and bruit, and dressing. NEUROLOGIC: She is at baseline mentation, awake, alert, and oriented. LABORATORY DATA: Sodium 131, potassium 5.6, glucose 368. Hemoglobin 10.1. INPATIENT MEDICATIONS: She received 30 grams of Kayexalate today. Her remainder of medications are unchanged from prior. PROBLEMS: 1. End-stage renal disease on hemodialysis on a Monday, , Monday schedule. She refused dialysis yesterday. She is volume overloaded. She is hyperkalemic. She is noncompliant. She is given Kayexalate today for a potassium of 5.6. She will be dialyzed tomorrow if she agrees. Her fistula appears patent but not mature on exam today. Chronic noncompliance very much complicates her care. 2. Hyperkalemia secondary to refused dialysis session. Given Kayexalate and continues on consistent carbohydrate diet and I added a 2 gram potassium restriction. She is on low dose candesartan for her severe systolic heart failure as well. We will continue that for the time being. 3. Systolic congestive heart failure, ejection fraction 15%, concomitant diastolic dysfunction. Hypervolemic on exam. Peripheral edema. Volume status regulated by dialysis. She refused her treatment. She refuses daily weights. We will dialyze her tomorrow if she agrees. She is chronically noncompliant. In terms of her heart failure she continues on beta-adeel and ARB (we may have to discontinue the ARB given hyperkalemia and noncompliance with dialysis). 3. Peripheral vascular disease on aspirin, statin and Plavix. Dr. Stern is seeing her. She has that right foot wound. She is on antimicrobials per the primary team. Her fistula was patent on exam today with palpable thrill.
[2018-02-25] MEDS: **VANCO AFTER HD** MISC XX SCH (16:00)
[2018-02-25] MEDS: GLUCOSE 4 GM CHEW TABLET PO PRN (17:54)
[2018-02-25 22:00] VITALS: BP 151/73
[2018-02-25] MEDS: oxyCODONE 5MG TAB PO PRN (23:13)
[2018-02-25] MEDS: ATORVASTATIN 20 MG TAB PO SCH (23:14)
[2018-02-26] MEDS: HEPARIN SOD (PORCINE) 5000 UNITS/ML VIAL SQ SCH ×3 (05:37→22:17)
[2018-02-26] MEDS: DAKIN'S 0.25% HALF-STRENGTH SOLN 480 ML TOP SCH ×3 (05:38→22:18)
[2018-02-26] MEDS: FAMOTIDINE 20 MG TAB PO SCH (05:38)
[2018-02-26] MEDS: NYSTATIN 100,000 UNITS/GM TOPICAL PWD 15 GM TOP SCH ×2 (05:38→20:32)
[2018-02-26] MEDS: CLOPIDOGREL 75 MG TAB PO SCH (05:39)
[2018-02-26] MEDS: ALPRAZolam 0.5 MG TAB PO SCH ×3 (05:39→20:30)
[2018-02-26] MEDS: SERTRALINE 100 MG TAB PO SCH (05:39)
[2018-02-26] MEDS: ASPIRIN 81 MG ENTERIC TAB PO SCH (05:39)
[2018-02-26] MEDS: FLUTICASONE PROP 0.05% NASAL SPRAY 16 GM (FLONASE) SCH ×2 (05:39→22:17)
[2018-02-26] MEDS: guaiFENesin ER 600 MG TAB PO SCH ×2 (05:39→20:30)
[2018-02-26] MEDS: METOPROLOL TART 50 MG TAB PO SCH ×2 (05:40→20:31)
[2018-02-26] MEDS: **hydrALAZINE** 10 MG TAB PO SCH ×3 (05:40→22:17)
[2018-02-26 06:00] VITALS: BP 135/62
[2018-02-26] MEDS: CANDESARTAN 4MG TABLET PO SCH (06:08)
[2018-02-26 06:41] LABS: BASO # 0.2 10^3/uL (0.0-0.2); BASO % 2.1 % (0.0-1.0); EOS # 0.4 10^3/uL (0.0-0.50); EOS % 5.7 % (0.0-3.0); HEMOGLOBIN 10.1 g/dl (12.0-15.5); LYMPH # 1.5 10^3/uL (1.5-4.5); LYMPH % 20.2 % (24.0-44.0); MEAN CORPUSCULAR HEMOGLOBIN 25.1 pg (27.0-33.0); MEAN CORPUSCULAR HGB CONC 29.7 g/dl (32.0-36.5); MEAN CORPUSCULAR VOLUME 84.6 fl (80.0-96.0); MONO % 13.2 % (0.0-5.0); NEUTROPHILS # 4.2 10^3/uL (1.8-7.7); NEUTROPHILS % 58.2 % (36.0-66.0); PLATELET COUNT, AUTOMATED 352 10^3/uL (150-450); RED BLOOD COUNT 4.02 10^6/uL (4.00-5.40); WHITE BLOOD COUNT 7.2 10^3/uL (4.0-10.0)
[2018-02-26 07:05] LABS: C REACTIVE PROTEIN QUANTITATIV 9.09 MG/DL (0.00-0.30); CREATININE FOR GFR 4.9 MG/DL (0.55-1.30); GLOMERULAR FILTRATION RATE 9.8 (>51); MAGNESIUM LEVEL 2.1 MG/DL (1.8-2.4); POTASSIUM SERUM 5.1 MEQ/L (3.5-5.1)
[2018-02-26] MEDS: HumaLOG INSULIN (NovoLOG) PER UNIT SC SCH ×4 (07:30→20:33)
[2018-02-26] MEDS: LEVEMIR (INSULIN DETEMIR) 1 UNITS/0.01ML SC SCH (08:40)
--- NOTE | 2018-02-26 11:48 | IPN ---
DATE OF SERVICE: 02/26/2018 SUBJECTIVE: The patient seen and examined this morning. On dialysis, receiving her off-scheduled treatment, as she refused dialysis on Monday over the weekend. She is insistent that she wants to be discharged. Otherwise, denies any new complaints. VITAL SIGNS: Temperature 96.6, pulse 62, respiratory rate 18, blood pressure 135/62, saturating 96% on room air. Weight on the bed scale today is 74.3 kg. GENERAL: She is seen on dialysis, receiving her maintenance treatment. No acute distress. Extraocular muscles are intact. Tongue is moist. Right internal jugular (IJ) PermCath is in use. CARDIAC: S1, S2, regular rate and rhythm. LUNGS: Clear to auscultation bilaterally. ABDOMEN: Soft and nontender. EXTREMITIES: Have pitting edema that extends up to the hip, thigh, and dependent area. The right foot stump has dressings. There is a left ulgno-nhm-crcn amputation. The right upper extremity brachiocephalic fistula has a thrill and bruit and dressing. NEUROLOGIC: She is at baseline mentation, awake, alert, and oriented. LABORATORIES: Sodium 133, potassium 5.1, bicarbonate net 19, magnesium 2.1. Hemoglobin 10.1. INPATIENT MEDICATIONS: Reviewed by me and no change from prior. PROBLEMS: 1. End-stage renal disease, on hemodialysis. Her maintenance schedule is Monday, , Monday. However, she refused dialysis on Monday. She is now being dialyzed off schedule today. Goal fluid removal will be about 4 liters as tolerated. She received Kayexalate over the weekend for hyperkalemia. Chronic noncompliance complicates her care. 2. Systolic congestive heart failure, ejection fraction 15%, concomitant diastolic dysfunction. Hypervolemic on examination. Peripheral edema, volume status regulated by dialysis. She has been refusing daily weights. Her goal fluid removal on dialysis session is about 4-5 liters. In terms of heart failure, she continues on beta-adeel and angiotensin receptor adeel (ARB). 3. Right foot, status post transmetatarsal amputation with ulcer. Continues on antimicrobials per the primary team with vascular surgery following and local wound care. There is no leukocytosis, but I see that the C-reactive protein (CRP) has risen for the past several days. She remains afebrile. 4. Hypertension. Blood pressures are acceptable, and no changes are being made.
[2018-02-26 12:53] LABS: VANCOMYCIN RANDOM 18.6 UG/ML
--- NOTE | 2018-02-26 12:58 | PHACANCOPD ---
PHARMACY VANCOMYCIN DOSING Pt Demographics Demographics Patient Age:57 , Weight:74.300 , Gender: female Adjusted Body Weight Date: 01/17/18, Adjusted Body Weight: Kg Events Past 24 Hours Events Past 24 Hours: YES: Dialysis; NO: Diuretic Therapy, Change in CrCl, Fever, Elevation in WBC, Pending Diagnostics, Pending Procedures, Other Vancomycin Vancomycin indication: INFECTED FOOT WOUND Vancomycin Target Ranges: 15-20 mcg/ml Vancomycin Load Y/N: No Load Dose Date Time Vancomycin Load Dose: Date: Time: Vancomycin Dose Date: 02/15/18. Current Vancomycin Dose: [750mg after HD] Date: 01/17/18. Current Vancomycin Dose: [1GM AFTER HD] Intermittent Dosing?: No Labs Labs Vital Signs Label Value Date Time Patient Temperature 96.6 degrees F 02/26/18 0600 Temperature Source Oral 02/26/18 0600 Patient Temperature 99.0 degrees F 02/25/18 2200 Temperature Source Oral 02/25/18 2200 Patient Temperature 98.3 degrees F 02/25/18 1400 Temperature Source Temporal 02/25/18 1400 Item Value Date Time White Blood Count 7.2 10^3/uL 02/26/18 0604 White Blood Count 6.3 10^3/uL 02/25/18 0751 White Blood Count 4.7 10^3/uL 02/24/18 0608 Creatinine 4.90 MG/DL H 02/26/18 0604 Creatinine 4.31 MG/DL H 02/25/18 0751 Creatinine 3.52 MG/DL H 02/24/18 0608 Random Vancomycin Level 18.6 UG/ML 02/26/18 0604 Random Vancomycin Level 17.3 UG/ML 02/23/18 0551 Random Vancomycin Level 16.2 UG/ML 02/19/18 0538 Creatinine Clearance Date:01/17/18. Creatinine Clearance: . Assessment and Plan Maintaining Current Dose?: Yes Reason for dose change: No Dose Change Pharmacist Note Pharmacist Note 02/26/18: Random level requested from AM lab draw. Pt being dialyzed today (monday) off schedule due to refusing dialysis on Monday. Level resulted at 18.6mcg/ml. This is within our goal. We will continue Vanco 750mcg IV HD. Of note, pt is continuing to accumulate. We will keep an eye on random levels and adjust dose when necessary. 02/23/18: Random level this morning resulted at 17.3mcg/ml. The patient's last dose and dialysis session was 02/20/18, and the patient is scheduled to undergo dialysis today. We will continue the patient on her current regimen of 750mg of vancomycin given after dialysis. We will continue to monitor and make dose adjustments accordingly. 02/15: Patient was restarted on Vancomycin today due to increased pain in right foot. She is status post right foot metatarsal amputation with ulcer. She receives dialysis on Monday, and Saturdays. Patient has a history of E. faecalis, Staph aureus, and Corynebacteria for wound cultures. She was started on Vancomycin 750mg after dialysis. We will continue to monitor and make adjustments as necessary. 01/27/18: Random this AM resulted at 22.2mcg/ml. Level is coming down. I have scheduled a random for AM before next dialysis session to ensure appropriate level. We will continue to monitor and adjust dose as needed. 01/25/18: Random this AM resulted at 24.2mcg/ml. The patient is continuing to accumulate. I have lowered the dose to Vanco 750mg IV HD. We will continue to monitor and adjust dose as needed. 01/23: patient's trough is back in range today at 16.1 so we will resume her Vancomycin 1gm after HD today. She is receiving HD today. Her WBC is within normal limits and she is afebrile. She is waiting for consult from Dr. Stern to see what her next steps are for her wound care. WE will continue to monitor and make adjustments as necessary. 01/20: Patient's random came back at 32.8 today. Her vancomycin was put on hold due to the high random this morning. She is receiving dialysis today and we will reevaluate random in the morning. We will continue to monitor and make adjustments as necessary. Date: 01/17/18. Pharmacist note: Patient was started on Vancomycin today due to infected wound on her foot. Her previous wound cultures grew E.faecalis and MSSA. She is a dialysis patient with usual dialysis days of Monday, , and Monday. She has not received dialysis in over a week and therefore will receive dialysis today. They are unsure at this time what her dialysis schedule will be as they will be evaluating her day by day to see what her needs are. Currently she is set up with Vancomycin 1gm after HD and we will obtain a random level in the morning to make sure she is therapeutic range. We will continue to monitor and make adjustments as necessary. [facility] Feb 26, 2018 12:58
[2018-02-26] MEDS ORDERED: HEPARIN 1,000 UNITS/ML 10ML VIAL (FOR RADIOLOGY& DIALYSIS ONLY) IV ONE (14:15)
--- NOTE | 2018-02-26 14:55 | IPNPDOC ---
Date Seen The patient was seen on 02/26/18. Progress Note SUBJECTIVE: Patient is rather cantankerous, denies any complaints tells me she wants to go home she admits she has refused in the past but for me she is more open to accepting moving forward OBJECTIVE PHYSICAL EXAMINATION: VITAL SIGNS: Please see below. GENERAL: Elderly female appears older than stated age sitting in a wheelchair speak in complete sentences awake alert oriented 3 she is in no distress HEENT: Nerves II through XII appear to be grossly intact CARDIOVASCULAR: S1 and S2 are regular. RESPIRATORY: Clear to auscultation bilaterally with scattered bibasilar Rales. ABDOMINAL: Bowel sounds present abdomen soft and nontender EXTREMITIES: 1+ edema bilaterally LABORATORY DATA, IMAGING STUDIES, MICROBIOLOGY: Please see below. DVT prophylaxis ordered?: Heparin ASSESSMENT AND PLAN: This is a 57-year-old female with end-stage renal disease on hemodialysis with a wound infection. PROBLEMS: 1. Right foot metatarsal amputation with ulcer: Vascular surgery help greatly appreciated, Hx of a positive Wound culture 10/29: with Enterococcus faecalis, Staphylococcus aureus, Corynebacteria. Patient denies any pain CRP is rising no leukocytosis for now we'll continue to monitor very closely patient remains afebrile. There is a possibility she may require further management in the future this may be able to be completed outpatient c/w Vancomycin with HD. Duration of therapy to be discussed with vascular surgery service. 2. IDDM2 with Hyperglycemia and Hypoglycemia, c/w ISS and Levemir, FS we'll controlled at this time 3. ESRD on HD: Lengthy discussion had regarding compliance with the patient tells me she will do hemodialysis today and she will work with physical therapy tomorrow. Dr. Villanueva reportedly was called the patient's right fistula will follow- up with the vascular surgery service. Nephrology's help is greatly appreciated 4. C. diff colitis: Resolved continue to monitor while she is on antibiotics 5. CAD s/p stent c/w ASA, Plavix, beta adeel and Atorvastatin. Stable no symptoms 6. 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 She is on a beta adeel we'll defer to her outpatient weight shifter should benefit from something like entresto versus hydralazine with nitroglycerin combination, her volume status is optimized via hemodialysis 7. HTN: BP well controlled, c/w Candesartan, Hydralazine, Metoprolol as outlined above 8. DLP c/w ASA and Atorvastatin 9. COPD: no evidence of exacerbation, c/w inhaled therapy as ordered, she is at her baseline respiratory status 10. Anxiety: c/w Sertraline 11: Medical non-compliance: Complicating medical care , I did a lengthy discussion with her today she is more agreeable to care 12. GERD: c/w Famotidine Prognosis: - Guarded VS, I&O, 24H, Fishbone Vital Signs/I&O Vital Signs Date Time Temp Pulse Resp B/P (MAP) Pulse Ox O2 Delivery O2 Flow Rate FiO2 02/26/18 06:00 96.6 62 18 135/62 (86) 96 Room Air I&O- Last 24 Hours up to 6 AM 02/26/18 06:00 Intake Total 1500 ml Balance 1500 ml Laboratory Data 24H LABS Laboratory Tests 2 02/25/18 16:55: Bedside Glucose (Misc Panel) 71 02/25/18 17:45: Bedside Glucose (Misc Panel) 55L 02/25/18 18:24: Bedside Glucose (Misc Panel) 71 02/25/18 19:25: Bedside Glucose (Misc Panel) 110H 02/26/18 02:15: Bedside Glucose (Misc Panel) 149H 02/26/18 06:04: Immature Granulocyte % (Auto) 0.6, White Blood Count 7.2, Red Blood Count 4.02, Hemoglobin 10.1L, Hematocrit 34.0L, Mean Corpuscular Volume 84.6, Mean Corpuscular Hemoglobin 25.1L, Mean Corpuscular Hemoglobin Concent 29.7L, Red Hoda l Distribution Width 22.2H, Platelet Count 352, Neutrophils (%) (Auto) 58.2, Lymphocytes (%) (Auto) 20.2L, Monocytes (%) (Auto) 13.2H, Eosinophils (%) (Auto) 5.7H, Basophils (%) (Auto) 2.1H, Neutrophils # (Auto) 4.2, Lymphocytes # (Auto) 1.5, Monocytes # (Auto) 1.0H, Eosinophils # (Auto) 0.4, Basophils # (Auto) 0.2, Nucleated Red Blood Cells % (auto) 0.0, Anion Gap 15, Glomerular Filtration Rate 9.8L, Blood Urea Nitrogen 57H, Creatinine 4.90H, Sodium Level 133L, Potassium Level 5.1, Chloride Level 99, Carbon Dioxide Level 19L, Calcium Level 8.0L, Magnesium Level 2.1, C-Reactive Protein, Quantitative 9.09H, Random Vancomycin Level 18.6 02/26/18 11:12: Bedside Glucose (Misc Panel) 283H CBC/BMP Laboratory Tests 02/26/18 06:04 Red Blood Count 4.02, Mean Corpuscular Volume 84.6, Mean Corpuscular Hemoglobin 25.1 L, Mean Corpuscular Hemoglobin Concent 29.7 L, Red Cell Distribution Width 22.2 H, Neutrophils (%) (Auto) 58.2, Lymphocytes (%) (Auto) 20.2 L, Monocytes (%) (Auto) 13.2 H, Eosinophils (%) (Auto) 5.7 H, Basophils (%) (Auto) 2.1 H, Neutrophils # (Auto) 4.2, Lymphocytes # (Auto) 1.5, Monocytes # (Auto) 1.0 H, Eosinophils # (Auto) 0.4, Basophils # (Auto) 0.2, Calcium Level 8.0 L SOLOMON HENDERSON MD Feb 26, 2018 14:55
[2018-02-26] MEDS: **VANCO AFTER HD** MISC XX SCH (16:00)
[2018-02-26] MEDS: GLUCOSE 4 GM CHEW TABLET PO PRN (20:30)
[2018-02-26 22:00] VITALS: BP 143/66
[2018-02-26] MEDS: ATORVASTATIN 20 MG TAB PO SCH (22:16)
[2018-02-27 06:00] VITALS: BP 139/57
[2018-02-27] MEDS: DAKIN'S 0.25% HALF-STRENGTH SOLN 480 ML TOP SCH ×3 (06:00→21:49)
[2018-02-27] MEDS: **hydrALAZINE** 10 MG TAB PO SCH ×3 (06:05→21:51)
[2018-02-27] MEDS: HEPARIN SOD (PORCINE) 5000 UNITS/ML VIAL SQ SCH ×3 (06:05→21:49)
[2018-02-27 06:22] LABS: BASO # 0.1 10^3/uL (0.0-0.2); BASO % 1.7 % (0.0-1.0); EOS # 0.3 10^3/uL (0.0-0.50); EOS % 3.5 % (0.0-3.0); HEMATOCRIT 30.6 % (36.0-47.0); HEMOGLOBIN 9.4 g/dl (12.0-15.5); LYMPH # 1.1 10^3/uL (1.5-4.5); LYMPH % 14.6 % (24.0-44.0); MEAN CORPUSCULAR HEMOGLOBIN 25.1 pg (27.0-33.0); MEAN CORPUSCULAR HGB CONC 30.7 g/dl (32.0-36.5); MEAN CORPUSCULAR VOLUME 81.8 fl (80.0-96.0); MONO # 0.9 10^3/uL (0.0-0.8); MONO % 11.4 % (0.0-5.0); NEUTROPHILS # 5.3 10^3/uL (1.8-7.7); NEUTROPHILS % 68.2 % (36.0-66.0); PLATELET COUNT, AUTOMATED 361 10^3/uL (150-450); RED BLOOD COUNT 3.74 10^6/uL (4.00-5.40); WHITE BLOOD COUNT 7.8 10^3/uL (4.0-10.0)
[2018-02-27 06:38] LABS: C REACTIVE PROTEIN QUANTITATIV 8.79 MG/DL (0.00-0.30); CALCIUM LEVEL 7.6 MG/DL (8.5-10.1); CREATININE FOR GFR 3.67 MG/DL (0.55-1.30); GLOMERULAR FILTRATION RATE 13.6 (>51); POTASSIUM SERUM 4.3 MEQ/L (3.5-5.1)
[2018-02-27] MEDS: LEVEMIR (INSULIN DETEMIR) 1 UNITS/0.01ML SC SCH (08:03)
[2018-02-27] MEDS: HumaLOG INSULIN (NovoLOG) PER UNIT SC SCH ×4 (08:04→21:00)
[2018-02-27] MEDS: CANDESARTAN 4MG TABLET PO SCH (08:04)
[2018-02-27] MEDS: ASPIRIN 81 MG ENTERIC TAB PO SCH (08:04)
[2018-02-27] MEDS: guaiFENesin ER 600 MG TAB PO SCH ×2 (08:04→21:49)
[2018-02-27] MEDS: FAMOTIDINE 20 MG TAB PO SCH (08:05)
[2018-02-27] MEDS: METOPROLOL TART 50 MG TAB PO SCH ×2 (08:05→21:50)
[2018-02-27] MEDS: SERTRALINE 100 MG TAB PO SCH (08:05)
[2018-02-27] MEDS: CLOPIDOGREL 75 MG TAB PO SCH (08:05)
[2018-02-27] MEDS: ALPRAZolam 0.5 MG TAB PO SCH ×3 (08:05→21:50)
[2018-02-27] MEDS: FLUTICASONE PROP 0.05% NASAL SPRAY 16 GM (FLONASE) SCH ×2 (08:06→21:51)
[2018-02-27] MEDS: NYSTATIN 100,000 UNITS/GM TOPICAL PWD 15 GM TOP SCH ×2 (08:06→21:51)
[2018-02-27] MEDS: oxyCODONE 5MG TAB PO PRN ×2 (12:32→14:03)
[2018-02-27 14:00] VITALS: BP 116/59
--- NOTE | 2018-02-27 15:00 | IPNPDOC ---
Date Seen The patient was seen on 02/27/18. Progress Note SUBJECTIVE: Patient continues to be cantankerous, denies any complaints tells me she feels good and she is able to care for herself at home OBJECTIVE PHYSICAL EXAMINATION: VITAL SIGNS: Please see below. GENERAL: female appears older than stated age sitting in a wheelchair speak in complete sentences awake alert oriented 3 she is in no distress HEENT: Nerves II through XII appear to be grossly intact poor dentition CARDIOVASCULAR: S1 and S2 are regular. RESPIRATORY: Clear to auscultation bilaterally with scattered bibasilar Rales. ABDOMINAL: Bowel sounds present abdomen soft and nontender EXTREMITIES: 1+ edema bilaterally LABORATORY DATA, IMAGING STUDIES, MICROBIOLOGY: Please see below. DVT prophylaxis ordered?: Heparin ASSESSMENT AND PLAN: This is a 57-year-old female with end-stage renal disease on hemodialysis with a wound infection. PROBLEMS: 1. Right foot metatarsal amputation with ulcer: Vascular surgery help greatly appreciated, Hx of a positive Wound culture 10/29: with Enterococcus faecalis, Staphylococcus aureus, Corynebacteria. Patient denies any pain at this time looking back it appears that she's completed about 20 days of vancomycin I did speak with Dr. Stern does not suspect osteomyelitis or any exposed bone as such at this time I will discontinue antibiotics soon she's completed good long course. No leukocytosis CRP downtrending today for now we'll continue to monitor very closely patient remains afebrile. There is a plan for further debridement to her foot down the road possibly to be completed outpatient as per Dr. Stern. The patient is assured me she'll work with physical therapy today I did have a lengthy conversation with her yesterday and early this morning regarding this. She 2. IDDM2 with Hyperglycemia and Hypoglycemia, c/w ISS and Levemir, FS we'll controlled at this time 3. ESRD on HD: Lengthy discussion had regarding compliance with the patient tells me she will do hemodialysis as scheduled. Nephrology's help is greatly appreciated. 4. C. diff colitis: Resolved 5. CAD s/p stent c/w ASA, Plavix, beta adeel and Atorvastatin. Stable no symptoms 6. 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 She is on a beta adeel will defer to her outpatient carrier associate if she would benefit from something like entresto versus hydralazine with nitroglycerin combination, her volume status is optimized via hemodialysis 7. HTN: BP well controlled, c/w Candesartan, Hydralazine, Metoprolol as outlined above 8. DLP c/w ASA and Atorvastatin 9. COPD: no evidence of exacerbation, c/w inhaled therapy as ordered, she is at her baseline respiratory status 10. Anxiety: c/w Sertraline 11: Medical non-compliance: Complicating medical care , I did a lengthy discussion with her today she is more agreeable to care 12. GERD: c/w Famotidine Disposition: Pending PT eval today home versus subacute rehabilitation versus AL C VS, I&O, 24H, Fishbone Vital Signs/I&O Vital Signs Date Time Temp Pulse Resp B/P (MAP) Pulse Ox O2 Delivery O2 Flow Rate FiO2 02/27/18 14:33 18 02/27/18 14:21 132/60 02/27/18 14:00 98.6 66 97 Room Air I&O- Last 24 Hours up to 6 AM 02/27/18 06:00 Intake Total 1080 ml Output Total 4000 ml Balance -2920 ml Laboratory Data 24H LABS Laboratory Tests 2 02/26/18 18:03: Bedside Glucose (Misc Panel) 75 02/26/18 20:16: Bedside Glucose (Misc Panel) 45L 02/26/18 21:22: Bedside Glucose (Misc Panel) 109H 02/27/18 06:04: Immature Granulocyte % (Auto) 0.6, White Blood Count 7.8, Red Blood Count 3.74L, Hemoglobin 9.4L, Hematocrit 30.6L, Mean Corpuscular Volume 81.8, Mean Corpuscular Hemoglobin 25.1L, Mean Corpuscular Hemoglobin Concent 30.7L, Red Cell Distribution Width 22.0H, Platelet Count 361, Neutrophils (%) (Auto) 68.2H, Lymphocytes (%) (Auto) 14.6L, Monocytes (%) (Auto) 11.4H, Eosinophils (%) (Auto) 3.5H, Basophils (%) (Auto) 1.7H, Neutrophils # (Auto) 5.3, Lymphocytes # (Auto) 1.1L, Monocytes # (Auto) 0.9H, Eosinophils # (Auto) 0.3, Basophils # (Auto) 0.1, Nucleated Red Blood Cells % (auto) 0.0, Anion Gap 12, Glomerular Filtration Rate 13.6L, Blood Urea Nitrogen 39H, Creatinine 3.67H, Sodium Level 134L, Potassium Level 4.3, Chloride Level 99, Carbon Dioxide Level 23, Calcium Level 7.6L, Magnesium Level 2.0, C-Reactive Protein, Quantitative 8.79H 02/27/18 11:20: Bedside Glucose (Misc Panel) 397H CBC/BMP Laboratory Tests 02/27/18 06:04 Red Blood Count 3.74 L, Mean Corpuscular Volume 81.8, Mean Corpuscular Hemoglobin 25.1 L, Mean Corpuscular Hemoglobin Concent 30.7 L, Red Cell Distribution Width 22.0 H, Neutrophils (%) (Auto) 68.2 H, Lymphocytes (%) (Auto) 14.6 L, Monocytes (%) (Auto) 11.4 H, Eosinophils (%) (Auto) 3.5 H, Basophils (%) (Auto) 1.7 H, Neutrophils # (Auto) 5.3, Lymphocytes # (Auto) 1.1 L, Monocytes # (Auto) 0.9 H, Eosinophils # (Auto) 0.3, Basophils # (Auto) 0.1, Calcium Level 7.6 L SOLOMON HENDERSON MD Feb 27, 2018 15:00
[2018-02-27] MEDS: **VANCO AFTER HD** MISC XX SCH (16:00)
[2018-02-27] MEDS: ATORVASTATIN 20 MG TAB PO SCH (21:50)
[2018-02-27 22:00] VITALS: BP 147/58
[2018-02-28 06:00] VITALS: BP 145/58
[2018-02-28] MEDS: DAKIN'S 0.25% HALF-STRENGTH SOLN 480 ML TOP SCH ×2 (06:00→13:58)
[2018-02-28] MEDS: **hydrALAZINE** 10 MG TAB PO SCH ×2 (06:25→14:09)
[2018-02-28] MEDS: HEPARIN SOD (PORCINE) 5000 UNITS/ML VIAL SQ SCH ×2 (06:25→14:09)
[2018-02-28 06:34] LABS: BASO # 0.2 10^3/uL (0.0-0.2); BASO % 2.2 % (0.0-1.0); EOS # 0.4 10^3/uL (0.0-0.50); EOS % 5.7 % (0.0-3.0); HEMATOCRIT 31.4 % (36.0-47.0); HEMOGLOBIN 9.5 g/dl (12.0-15.5); LYMPH # 1.1 10^3/uL (1.5-4.5); LYMPH % 16.6 % (24.0-44.0); MEAN CORPUSCULAR HEMOGLOBIN 25.2 pg (27.0-33.0); MEAN CORPUSCULAR HGB CONC 30.3 g/dl (32.0-36.5); MEAN CORPUSCULAR VOLUME 83.3 fl (80.0-96.0); MONO % 14.6 % (0.0-5.0); NEUTROPHILS % 59.4 % (36.0-66.0); PLATELET COUNT, AUTOMATED 399 10^3/uL (150-450); RED BLOOD COUNT 3.77 10^6/uL (4.00-5.40); WHITE BLOOD COUNT 6.7 10^3/uL (4.0-10.0)
[2018-02-28 07:03] LABS: C REACTIVE PROTEIN QUANTITATIV 7.35 MG/DL (0.00-0.30); CALCIUM LEVEL 7.7 MG/DL (8.5-10.1); CREATININE FOR GFR 4.37 MG/DL (0.55-1.30); GLOMERULAR FILTRATION RATE 11.1 (>51); MAGNESIUM LEVEL 1.9 MG/DL (1.8-2.4); POTASSIUM SERUM 4.7 MEQ/L (3.5-5.1)
[2018-02-28] MEDS: FLUTICASONE PROP 0.05% NASAL SPRAY 16 GM (FLONASE) SCH (09:00)
[2018-02-28] MEDS: NYSTATIN 100,000 UNITS/GM TOPICAL PWD 15 GM TOP SCH (09:00)
[2018-02-28] MEDS: ASPIRIN 81 MG ENTERIC TAB PO SCH (09:00)
[2018-02-28] MEDS: CLOPIDOGREL 75 MG TAB PO SCH (09:25)
[2018-02-28] MEDS: HumaLOG INSULIN (NovoLOG) PER UNIT SC SCH ×3 (09:25→17:17)
[2018-02-28] MEDS: oxyCODONE 5MG TAB PO PRN (09:26)
[2018-02-28] MEDS: SERTRALINE 100 MG TAB PO SCH (09:26)
[2018-02-28] MEDS: CANDESARTAN 4MG TABLET PO SCH (09:26)
[2018-02-28] MEDS: ALPRAZolam 0.5 MG TAB PO SCH ×2 (09:26→16:00)
[2018-02-28] MEDS: METOPROLOL TART 50 MG TAB PO SCH (09:27)
[2018-02-28] MEDS: guaiFENesin ER 600 MG TAB PO SCH (09:27)
[2018-02-28] MEDS: FAMOTIDINE 20 MG TAB PO SCH (09:27)
[2018-02-28] MEDS: LEVEMIR (INSULIN DETEMIR) 1 UNITS/0.01ML SC SCH (09:28)
[2018-02-28] MEDS ORDERED: HEPARIN 1,000 UNITS/ML 10ML VIAL (FOR RADIOLOGY& DIALYSIS ONLY) XX ONE (11:30)
[2018-02-28] MEDS ORDERED: HEPARIN 1,000 UNITS/ML 10ML VIAL (FOR RADIOLOGY& DIALYSIS ONLY) IV ONE (11:30)
--- NOTE | 2018-02-28 12:04 | IPNPDOC ---
Text Note Date of Service The patient was seen on 02/28/18. NOTE CC: Foot pain improved, refuse HD for today. Want to go home AMA. PE: VSS Gen: AAO x3, no acute distress Lungs: CTAB Heart: RRR, no G/M/R Abd: BS nl, NT/ND Ext: RLE: stump wound granulated from bottom and edge. minimal serous drainage Plan: Continue current management as per hospital medicine Wet to dry dressing change q8hr as directed unless being discharged/AMA then change dressing daily. VS,Fishbone, I+O VS, Fishbone, I+O Laboratory Tests 02/28/18 06:20 Red Blood Count 3.77 L, Mean Corpuscular Volume 83.3, Mean Corpuscular Hemoglobin 25.2 L, Mean Corpuscular Hemoglobin Concent 30.3 L, Red Cell Distribution Width 21.8 H, Neutrophils (%) (Auto) 59.4, Lymphocytes (%) (Auto) 16.6 L, Monocytes (%) (Auto) 14.6 H, Eosinophils (%) (Auto) 5.7 H, Basophils (%) (Auto) 2.2 H, Neutrophils # (Auto) 4.0, Lymphocytes # (Auto) 1.1 L, Monocytes # (Auto) 1.0 H, Eosinophils # (Auto) 0.4, Basophils # (Auto) 0.2, Calcium Level 7.7 L Vital Signs Date Time Temp Pulse Resp B/P (MAP) Pulse Ox O2 Delivery O2 Flow Rate FiO2 02/28/18 09:27 60 140/60 02/28/18 09:26 18 02/28/18 06:00 98.1 92 Room Air I&O- Last 24 Hours up to 6 AM 02/28/18 05:59 Intake Total 1680 ml Output Total 1 ml Balance 1679 ml PADMINI FIGUEROA PA-C Feb 28, 2018 12:04
[2018-02-28 14:00] VITALS: BP 159/62
[2018-02-28 14:09] VITALS: BP 135/58
[2018-02-28] MEDS: **VANCO AFTER HD** MISC XX SCH (16:00)
[2018-02-28] MEDS ORDERED: ATAC1TAB PO (17:05)
[2018-02-28] MEDS ORDERED: HYDR10TAB PO (17:05)
--- NOTE | 2018-03-01 07:46 | IPN ---
DATE OF SERVICE: 02/28/2018 SUBJECTIVE: Patient was seen and examined this morning at the bedside. She has been refusing hemodialysis. She refused treatment again today, tells me that she is leaving the hospital this afternoon after her son arrives. States if she is not discharged then she would leave against medical advice. Tells me she will plan to come for outpatient hemodialysis treatment tomorrow, but I am quite skeptical given her significant noncompliance. Vital Signs: Temperature 97.4, pulse 65, respiratory rate 16, blood pressure 159/62, saturating 95% on room air. Intake yesterday was 1680. Weight on the bed scale today is not recorded. General: Patient seen sitting in the wheelchair, frustrated. Does not make good eye contact. In no acute distress. Extraocular muscles are intact. Right IJ PermaCath with dressing. Cardiac: S1, S2, regular rate and rhythm. Lungs: Diminished breath sounds at the bases. Abdomen is soft and nontender. Extremities have pitting edema that comes up to the thighs. The right foot stump has dressings. There is a left below the knee amputation. The right upper extremity brachiocephalic fistula is patent, but not mature. Neurologic: She is at baseline mentation. Oriented. Psychiatric: She is frustrated and not interested in having a conversation. LABS: White count 6.7, hemoglobin 9.5, sodium 133, potassium 4.7, bicarbonate 19, BUN 50, CRP 7.3. INPATIENT MEDICATIONS: Reviewed by myself and no change from prior. PROBLEMS: 1. End stage renal disease on hemodialysis. Her outpatient maintenance schedule is Monday, , Monday. This past week she refused dialysis on Monday. She was subsequently dialyzed on Monday. She refused dialysis on Monday and Monday. Today, she tells me that she is leaving against medical advice if she is not discharged. She is a known noncompliant patient. She is advised to come for her outpatient treatment tomorrow and she is advised to continue with potassium restriction and fluid restriction. Chronic noncompliance greatly complicates her care. 2. Systolic congestive heart failure. Ejection fraction (EF) 15%. Concomitant diastolic dysfunction. Hypervolemic on examination. Usual fluid removal on dialysis is 4-5 liters. She has been refusing daily weights. In terms of heart failure, she continues on beta adeel and low dose angiotensin receptor adeel. I advised her to come for her three times weekly outpatient hemodialysis treatments. 3. Right foot wound status post transmetatarsal amputation with ulcer. She received almost three weeks of vancomycin. CRP is down trending. There is no leukocytosis. She remains afebrile. She is followed by wound care. She is to followup with Dr. Stern as an outpatient. I note her vancomycin is being stopped. 4. Hypertension. Blood pressures are acceptable and are expected to improve with dialysis and fluid removal. No changes are being made to her chronic regimen.
--- NOTE | 2018-03-05 10:19 | DSES ---
DATE OF ADMISSION: 01/16/2018 DATE OF LEAVING THE HOSPITAL AGAINST MEDICAL ADVICE: 02/28/2018 HOSPITAL COURSE: The patient had incredibly lengthy hospitalization that involved initially her being seen for Clostridium (C) difficile colitis and completing a course of antibiotics and with resolution of her symptoms followed by a right metatarsal infection that required amputation with subsequent debridement as well as chronic obstructive pulmonary disease (COPD) exacerbation. She remained in the hospital and was intermittently agreeable to care, periodically refusing hemodialysis, adamantly refusing physical therapy, and insisting that she would go home. On the day of her leaving against medical advice, she refused physical therapy and refused hemodialysis. She was seen in consultation by the nephrology service, the vascular surgery service. She did have a procedure on 01/25/2018 and 02/20/[address] Stern. She did complete a course of antibiotics for her C. difficile as well as her wound infection. I suspect she was approaching a medically stable discharge but prior to allowing us arranging for a safe disposition, safe discharge for her from physical therapy's perspective, from an end-stage renal disease perspective, and a followup perspective, she elected to leave the hospital against medical advice. SUBJECTIVE: This morning, the patient tells me she feels great. She is leaving for home and refuses to have any further discussions with me. OBJECTIVE: Vital signs: Temperature 97.4, pulse 65, respiratory rate 16, blood pressure 139/62, oxygen saturation 95% on room air. General: She is a disheveled female who appears older than her stated age sitting in a wheelchair. She does not appear to be in acute distress. She is rather cantankerous. HEENT: Cranial nerves II-XII grossly intact. She does not allow physical exam. Cardiovascular exam: S1, S2 regular. Respiratory exam: Quite clear. Abdominal exam: Benign. Extremities: No clubbing or cyanosis. There was 1+ edema bilaterally. LABORATORY STUDIES: WBC 6.7, hemoglobin 9.5, platelet count 399. Chemistry panel: Sodium 133, potassium 4.7, chloride 98, bicarbonate 19, BUN 50, creatinine 4.3. Microbiology was negative other than stool positive for C. difficile on 01/16/2018. Most recent imaging was a CT scan of her foot without contrast. There was concern of infection. There was no such evidence. ASSESSMENT AND PLAN: This is a 57-year-old female who initially presented for Clostridium difficile with end-stage renal disease on hemodialysis, hospital course complicated by wound infection and chronic obstructive pulmonary disease exacerbation. PROBLEMS: 1. Right metatarsal amputation and ulcer. Vascular surgery's help was greatly appreciated. I did speak with Dr. Stern. The patient will require outpatient followup. She did not allow us to arrange this for her prior to her leaving. Wound culture from earlier this year was positive for Enterococcus faecalis and Staphylococcus aureus and with corynebacterium. She completed a course of vancomycin dosed with dialysis while inpatient. Dr. Stern did not suspect any further osteomyelitis but did suspect she would benefit from further debridement down the road and did not need it to be completed in the hospital. At this time, she has no further questions regarding risks and benefits regarding continued treatment. CRP had been downtrending. 2. Insulin-dependent diabetes. She has been on sliding scale insulin while in the hospital. 3. End-stage renal disease, on hemodialysis. She is intermittently accepting dialysis, mostly depending on her mood and how she feels and has nothing to do with her goals of care or lack of wanting to live. She tells me that she will refuse it today but get it when she needs it outside the hospital at her own leisure. 4. Clostridium difficile colitis, resolved. 5. Coronary artery disease status post stent. She is on aspirin, Plavix, beta-adeel, and atorvastatin and was stable during the stay. 6. Combined systolic/diastolic congestive heart failure with decreased ejection fraction, likely secondary to ischemic cardiomyopathy. She appeared fairly euvolemic through much of her stay; however, at this time, she does appear to be mildly volume overloaded. She is on beta-adeel. Will defer to her outpatient mixer lever operator if she would benefit from something like Entresto versus hydralazine and nitrate combination. Volume status optimized by hemodialysis when she is compliant with the schedule. 7. Hypertension, controlled with candesartan, metoprolol Prescriptions were sent to her pharmacy at the time of her leaving against medical advice. 8. Chronic obstructive pulmonary disease. No evidence of exacerbation at this time. She is at her baseline respiratory status. She has completed treatment for exacerbation earlier during her stay. 9. Anxiety. She is continued on sertraline. 10. Medical noncompliance complicating care. Lengthy discussions were had by numerous providers. Patient refuses to cooperate with the care at multiple levels including physical therapy hemodialysis medication compliance appointment compliance she understands the risks of doing this lengthy discussions were had once again today DISPOSITION: Patient left the hospital against medical advice prior to allowing For scheduling of appropriate follow-up or chewing she is safe at home from a physical therapy perspective. She needs followup for her regular dialysis. Followup with her primary care provider (PCP) within 7 days. Followup with vascular surgery within 2 weeks. Diet is renal. Activity is as tolerated. She is to return to the emergency room (ER) if symptoms worsen. MEDICATION AT TIME OF DISCHARGE: - candesartan 2 mg daily - hydralazine 10 mg three times a day - acetaminophen/hydrocodone 10/325 one tablet every 4 hours - Ventolin HFA two puffs inhaled four times daily as needed for shortness of breath - alprazolam 0.5 mg three times a day - aspirin 81 mg daily - atorvastatin 40 mg daily nightly - Auryxia 420 mg with meals - calcitriol 0.25 mcg daily - Plavix 75 mg daily - Pepcid 40 mg daily - fluticasone 50 mcg spray inhaled twice a day - Breo Ellipta 100/25 mcg inhaled daily - NovoLog FlexPen sliding scale before meals - Levemir 30 units every morning - metoprolol 50 mg twice a day - Nitrostat 0.4 mg every 5 minutes as needed for chest pain - nystatin powder topically twice a day to affected area - senna laxative 8.5 mg two tablets twice a day - sertraline 100 mg daily Greater than 1 hour spent trying to organize as safe a disposition as the patient would allow and convincing her to stay in the hospital. STARLA
--- NOTE | 2018-03-21 11:22 | RO ---
DATE OF PROCEDURE: 02/20/2018 ATTENDING SURGEON: Dr. Royce Stern FINANCIAL ANALYST INTERN: None. PREOPERATIVE DIAGNOSES: Nonhealing right transverse metatarsal amputation wound, end-stage renal disease, diabetes mellitus, atherosclerotic arterial occlusive disease, status post left below-knee amputation, status post right transmetatarsal amputation. POSTOPERATIVE DIAGNOSES: Nonhealing right transverse metatarsal amputation wound, end-stage renal disease, diabetes mellitus, atherosclerotic arterial occlusive disease, status post left below-knee amputation, status post right transmetatarsal amputation. PROCEDURE: Excisional debridement of skin and subcutaneous tissue and muscle of the right transmetatarsal amputation wound. INDICATION: The patient is a 57-year-old female who underwent removal of her toes and forefoot with a right transmetatarsal amputation. The patient has not been seen since her discharge from the hospital in more than a month and half and has run out of dressing materials and had been using washcloths for coverage of her wound at home and was eventually seen in the office and noted to have dehiscence of her incision with opening of the incision and exposure of the underlying tissue. The patient will require debridement of the right transmetatarsal amputation wound. Risks, benefits, and alternative treatment options were discussed with the patient. ANESTHESIA: Was monitored anesthesia care (MAC). ESTIMATED BLOOD LOSS: 5 mL. IV FLUIDS: 5 mL. HEPARIN: None. COMPLICATIONS: None. DRAINS: None. SPECIMENS: None IMPLANTS: None. DESCRIPTION: The wound measures approximately 7 cm in width x 2 cm in length and approximately 3 mm in depth. Post debridement wound measurements were approximately the same. PROCEDURE: The patient was taken to the operating room, placed supine on the operating table and the right lower extremity was prepped and draped in the standard surgical fashion. Pickups and a scalpel were used to remove all nonviable skin, subcutaneous tissue, adipose tissue and muscle down to healthy bleeding tissue. The wound was then irrigated and a dressing was applied. All instrument, sponge, and needle counts were correct at the end of the case. There were no complications. Dr. Stern was present for directed the entire case. The patient was transferred to the recovery room awake, alert, extubated and in stable condition.
--- NOTE | 2018-03-21 12:32 | RO ---
DATE OF PROCEDURE: 02/21/2018 PREOPERATIVE DIAGNOSES: End-stage renal disease, dysfunctional right brachiocephalic arteriovenous fistula. POSTOPERATIVE DIAGNOSES: End-stage renal disease, dysfunctional right brachiocephalic arteriovenous fistula. PROCEDURE: Right brachiocephalic arteriovenous fistulogram, retrograde right brachial artery angiogram. ATTENDING SURGEON: Dr. Royce Stern ASSISTANTS: Jennifer Tan and Malik Camarena. ANESTHESIA: Was local with 1 mL of 2% lidocaine. INDICATION: Patient is a 57-year-old female with a right brachiocephalic arteriovenous fistula, which has been non-maturing and is unable to be used yet for hemodialysis access. Patient will undergo a fistulogram with possible angioplasty, stent, and/or atherectomy. Risks, benefits, and alternative treatment options were discussed with the patient. FLUOROSCOPY TIME: 2.222 minutes. CONTRAST: None. COMPLICATIONS: None. DRAINS: None. SPECIMENS: None. IMPLANTS: None. DESCRIPTION OF PROCEDURE: Patient was taken to the angiography suite, placed supine on the angiography room table, and the right upper extremity was prepped and draped in a standard surgical fashion. The fistula was cannulated with a micropuncture needle after anesthetizing the overlying skin with 2% lidocaine. The wire was passed through the micropuncture needle but only for a short distance with inability to pass the wire further. Patient has a contrast allergy and due to contrast allergy and not being premedicated, no contrast was able to be given. Due to inability to pass the wire further, the catheter and wire were removed and manual compression applied at the puncture site for hemostasis. Dressings were then applied. Patient tolerated the procedure well. All instrument, sponge, and needle counts were correct at the end of the case. There were no complications. Dr. Stern was present for and directed the entire case. Patient was transferred to the holding area and subsequently to the floor in stable condition. Patient will return for a formal fistulogram once she has undergone premedication for her contrast allergy. Edited: [facility] 03/22/2018 1514
--- NOTE | 2018-03-22 11:02 | RO ---
DATE OF PROCEDURE: 01/25/2018 ATTENDING SURGEON: Dr. Royce Stern ENVIRONMENTAL ASSOCIATE: None. PREOPERATIVE DIAGNOSIS: Nonhealing right transmetatarsal amputation incision. POSTOPERATIVE DIAGNOSIS: Nonhealing right transmetatarsal amputation incision. PROCEDURE: Excisional debridement with removal of skin, subcutaneous tissue and muscle of the nonhealing right transmetatarsal amputation incision. INDICATION The patient is a 57-year-old female with severe atherosclerotic arterial occlusive disease, renal failure and diabetes mellitus with recent transmetatarsal amputation with breakdown of the incision. The patient will require debridement of the incision. Risks, benefits and alternative treatment options were discussed with the patient. ANESTHESIA: Local MAC. ESTIMATED BLOOD LOSS: Minimal. IV FLUIDS: 150 mL HEPARIN: None. COMPLICATIONS: None. DRAINS: None. SPECIMENS: None. IMPLANTS: None. PROCEDURE The patient was taken to the operating room, placed supine on the operating room table and then prepped and draped in a standard surgical fashion. Excisional debridement was performed with a scalpel and pickups with removal of all nonviable skin, subcutaneous tissue and muscle down to healthy bleeding tissue. Once the debridement was completed, the wound was irrigated and dressings were applied. The patient tolerated the procedure well. All instrument, sponge and needle counts were correct at the end of the case. There were no complications. Dr. Stern was present for and directed the entire case. The patient was transferred to the recovery room awake, alert, extubated and in stable condition.
== END 2018-02-28 18:00 | disposition home or self-care (01) | DRG 981 ==
LOC: EDBD 16:11 → M ED 16:11 → M ED INP 21:19 → M MSPAV 01-17 00:44
PROVIDERS: ADMIT Hospitalist; ATTEND Internal Medicine
PROC: 0KBV0ZZ Excision of Right Foot Muscle, Open Approach (ICD-10-PCS; principal; 2018-01-25 13:49)
PROC: 0KBV0ZZ Excision of Right Foot Muscle, Open Approach (ICD-10-PCS; 2018-02-20)
PROC: B51WYZZ Fluoroscopy of Dialysis Shunt/Fistula using Other Contrast (ICD-10-PCS; 2018-02-21)
DX: A04.72 Enterocolitis due to Clostridium difficile, not specified as recurrent (principal); N18.6 End stage renal disease; I50.42 Chronic combined systolic (congestive) and diastolic (congestive) heart failure; T87.43 Infection of amputation stump, right lower extremity; I13.2 Hypertensive heart and chronic kidney disease with heart failure and with stage 5 chronic kidney disease, or end stage renal disease; J44.1 Chronic obstructive pulmonary disease with (acute) exacerbation; E87.2 Acidosis; I25.10 Atherosclerotic heart disease of native coronary artery without angina pectoris; Z95.2 Presence of prosthetic heart valve; F41.9 Anxiety disorder, unspecified; Z91.19 Patient's noncompliance with other medical treatment and regimen; Z79.82 Long term (current) use of aspirin; Z79.899 Other long term (current) drug therapy; Z79.4 Long term (current) use of insulin; Z89.512 Acquired absence of left leg below knee; E11.65 Type 2 diabetes mellitus with hyperglycemia; Z88.5 Allergy status to narcotic agent; Z91.041 Radiographic dye allergy status; F17.210 Nicotine dependence, cigarettes, uncomplicated; E87.5 Hyperkalemia; E78.5 Hyperlipidemia, unspecified; D63.1 Anemia in chronic kidney disease; I27.20 Pulmonary hypertension, unspecified; E83.42 Hypomagnesemia; E87.70 Fluid overload, unspecified; K21.9 Gastro-esophageal reflux disease without esophagitis; E11.649 Type 2 diabetes mellitus with hypoglycemia without coma; E11.22 Type 2 diabetes mellitus with diabetic chronic kidney disease; Z53.09 Procedure and treatment not carried out because of other contraindication

== ENCOUNTER → 2018-05-10 | Outpatient (CLI) | payer MEDICARE, MEDICAID ==
[~2018-05-10] MED LIST changes: -AMLO5TAB4 PO; +AMLO5TAB6 PO; -ATAC1TAB PO; +ATAC4TAB2 PO; +AURY1TAB PO; +CAND4TAB PO; +FLUTISP; +HEPARIN 1,000 UNITS/ML 10ML VIAL (FOR RADIOLOGY& DIALYSIS ONLY) As Ordered ONE; +HYDR10TAB PO; +HumaLOG INSULIN (NovoLOG) PER UNIT ONE; +HumaLOG INSULIN (NovoLOG) PER UNIT SC ONE; +HumaLOG INSULIN (NovoLOG) PER UNIT SC STA; +ISOVUE-300 61% 50ML VIAL (Q9967) As Ordered ONE; -LASI20TA PO; +LASI20TA3 PO; +LIDOCAINE 2% MDV 20 ML VIAL As Ordered ONE; +LOSA25TA14 PO; -LOSA25TA33 PO; +MIDAZOLAM INJ 2 MG/2 ML VIAL (J2250) As Ordered ONE; +NICO7DIS27 TD; -NICODIS3 TD; +NYST1POW9 TOP; +fentaNYL 100 MCG/2 ML INJECTION (J3010) As Ordered ONE
[2018-05-10 08:19] LABS: GLUCOSE,RANDOM 681 MG/DL (LESS THAN 200)
[2018-05-10 10:05] LABS: ABG BASE EXCESS -11.1 (-2.0-2.0); ABG HCO3 15.7 MEQ/L (22.0-26.0); ABG O2 LITER FLOW 3L; ABG O2 SATURATION 97.2 % (95.0-99.0); ABG PARTIAL PRESSURE CO2 38.6 mmHg (35.0-45.0); ABG PARTIAL PRESSURE O2 99.5 mmHg (75.0-100.0); ABG PATIENT RESP RATE 20 /MIN; ABG PATIENT TEMPERATURE 98.5; ABG STANDARD HCO3 15.7 MEQ/L (22.0-26.0); ABG TOTAL CO2 16.9 MEQ/L (22.0-29.0)
[2018-05-10 10:11] LABS: ALBUMIN 2.4 GM/DL (3.2-5.2); ALT/SGPT 32 U/L (12-78); BILIRUBIN,TOTAL 0.3 MG/DL (0.2-1.0); BLOOD UREA NITROGEN 95 MG/DL (7-18); CALCIUM LEVEL 6.8 MG/DL (8.5-10.1); CARBON DIOXIDE LEVEL 16 MEQ/L (21-32); CHLORIDE LEVEL 101 MEQ/L (98-107); CREATININE FOR GFR 5.73 MG/DL (0.55-1.30); GLOMERULAR FILTRATION RATE 8.1 (>51); POTASSIUM SERUM 4.8 MEQ/L (3.5-5.1); SODIUM LEVEL 132 MEQ/L (136-145); TOTAL PROTEIN 6.2 GM/DL (6.4-8.2)
[2018-05-10 10:11] LABS: ABG pH (ARTERIAL) 7.228 UNITS (7.350-7.450)
[2018-05-10 10:15] LABS: HEMATOCRIT 40.7 % (36.0-47.0); HEMOGLOBIN 12.3 g/dl (12.0-15.5); MEAN CORPUSCULAR HEMOGLOBIN 26.2 pg (27.0-33.0); MEAN CORPUSCULAR HGB CONC 30.2 g/dl (32.0-36.5); MEAN CORPUSCULAR VOLUME 86.8 fl (80.0-96.0); PLATELET COUNT, AUTOMATED 239 10^3/uL (150-450); RED BLOOD COUNT 4.69 10^6/uL (4.00-5.40); WHITE BLOOD COUNT 4.4 10^3/uL (4.0-10.0)
== END ==
LOC: M IRPRO 06:20 → M ICU 10:15 → UNDOADMIN 10:15 → UNDODISIN 10:35
PROVIDERS: ATTEND Surgery Vascular Surgery
DX: S91.301D Unspecified open wound, right foot, subsequent encounter (principal); Z53.8 Procedure and treatment not carried out for other reasons

== ENCOUNTER 2018-05-12 15:34 | Inpatient (IN) | payer MEDICARE, MEDICAID ==
[~2018-05-12] VITALS: Ht 170.2 cm; Wt 78.5 kg
[~2018-05-12 15:34] MED LIST changes: -CAND4TAB PO; -HEPARIN 1,000 UNITS/ML 10ML VIAL (FOR RADIOLOGY& DIALYSIS ONLY) As Ordered ONE; -HumaLOG INSULIN (NovoLOG) PER UNIT ONE; -HumaLOG INSULIN (NovoLOG) PER UNIT SC ONE; -HumaLOG INSULIN (NovoLOG) PER UNIT SC STA; -ISOVUE-300 61% 50ML VIAL (Q9967) As Ordered ONE; -LIDOCAINE 2% MDV 20 ML VIAL As Ordered ONE; -MIDAZOLAM INJ 2 MG/2 ML VIAL (J2250) As Ordered ONE; -fentaNYL 100 MCG/2 ML INJECTION (J3010) As Ordered ONE
[2018-05-12] MEDS ORDERED: ALBUTEROL SULFATE 2.5 MG/0.5 ML INH NEB SOLN INH ONE (16:15)
[2018-05-12] MEDS ORDERED: IPRATROPIUM 0.5MG/ALBUTEROL 2.5MG INH SOL UD 3ML (DUONEB)(J7620) NEB ONE (16:15)
[2018-05-12] MEDS ORDERED: methylPREDNISolone INJ 125 MG/2 ML VIAL (J2930) IV ONE (16:15)
[2018-05-12 16:25] LABS: BASO % 0.6 % (0.0-1.0); EOS # 0.1 10^3/uL (0.0-0.50); HEMATOCRIT 38.8 % (36.0-47.0); HEMOGLOBIN 11.7 g/dl (12.0-15.5); LYMPH # 0.6 10^3/uL (1.5-4.5); LYMPH % 8.9 % (24.0-44.0); MEAN CORPUSCULAR HEMOGLOBIN 26.1 pg (27.0-33.0); MEAN CORPUSCULAR HGB CONC 30.2 g/dl (32.0-36.5); MEAN CORPUSCULAR VOLUME 86.4 fl (80.0-96.0); MONO # 0.5 10^3/uL (0.0-0.8); MONO % 6.5 % (0.0-5.0); NEUTROPHILS # 5.9 10^3/uL (1.8-7.7); NEUTROPHILS % 82.2 % (36.0-66.0); PLATELET COUNT, AUTOMATED 233 10^3/uL (150-450); RED BLOOD COUNT 4.49 10^6/uL (4.00-5.40); WHITE BLOOD COUNT 7.2 10^3/uL (4.0-10.0)
[2018-05-12 16:31] LABS: INR 1.11; PARTIAL THROMBOPLASTIN TIME 28.1 SECONDS (25.4-37.6); PROTHROMBIN TIME 14.5 SECONDS (12.1-14.4)
[2018-05-12 17:10] LABS: ALBUMIN 2.6 GM/DL (3.2-5.2); BILIRUBIN,DIRECT 0.2 MG/DL (0.0-0.2); BILIRUBIN,TOTAL 0.4 MG/DL (0.2-1.0); CALCIUM LEVEL 7.2 MG/DL (8.5-10.1); CREATININE FOR GFR 6.37 MG/DL (0.55-1.30); FREE T4 0.58 NG/DL (0.76-1.46); GLOMERULAR FILTRATION RATE 7.2 (>51); MB/CK RELATIVE INDEX 7.72 (< OR =4); POTASSIUM SERUM 6.2 MEQ/L (3.5-5.1); THYROID STIMULATING HORMONE 5.67 uIU/ML (0.358-3.740); TOTAL PROTEIN 6.4 GM/DL (6.4-8.2); TROPONIN I 0.07 NG/ML (< 0.10)
[2018-05-12] MEDS ORDERED: PIPERACILLIN/TAZOBACTAM SOD 4.5 GM in D5W MINI-BAG PLUS 50 ML IV ONE (17:30)
[2018-05-12] MEDS ORDERED: ACETAMINOPHEN TAB 650MG DOSE (2X325MG) PO PRN (17:45)
[2018-05-12] MEDS ORDERED: DEXTROSE 50% 50 ML SYRINGE IV STA (17:52)
[2018-05-12] MEDS ORDERED: SODIUM BICARBONATE 8.4% INJ 50 ML SYRINGE IV STA (17:52)
[2018-05-12] MEDS ORDERED: HYDR10TAB PO (18:00)
[2018-05-12] MEDS ORDERED: TUMS500C PO (18:00)
[2018-05-12] MEDS ORDERED: INSUDET SC (18:00)
[2018-05-12] MEDS ORDERED: PATIROMER SORBITEX CALCIUM 8.4 GM POWDER PACKET (VELTASSA) PO SCH (18:00)
[2018-05-12] MEDS ORDERED: PATIROMER SORBITEX CALCIUM 8.4 GM POWDER PACKET (VELTASSA) PO ONE (18:00)
[2018-05-12] MEDS ORDERED: HumuLIN R (REGULAR) INSULIN (NovoLIN R) **100U/ML** PER UNIT IV ONE (18:00)
[2018-05-12] MEDS ORDERED: CAND4TAB PO (18:00)
[2018-05-12] MEDS ORDERED: CALC1CAP PO (18:00)
--- NOTE | 2018-05-12 19:04 | HPEPDOC ---
[facility] Medical History & Physical Date of Admission May 12, 2018 History and Physical CHIEF COMPLAINT: [sob HISTORY OF PRESENT ILLNESS: Ms. Ibarra is a 58 y/o female with past medical history of DM2, CAD s/p stenting, PVD s/p left BKA, COPD, HTN and ESRD on HD T,R,Sa. non-compliant with dialysis who presents to the ED with complaints of SOB which started today. She said she was also wheezing and coughing but fever, chills or chest pain. Patient missed HD and today, sop she came to the ED for HD. REVIEW OF SYSTEMS: All 14 points ROS is negative except what's stated in HPI PHYSICAL EXAMINATION: GEN: no acute distress HEENT : no lymphadenopathy, PERRLA , no oropharyngeal erythema or exudates CVS: Normal S1/s2, no murmurs, rubs or gallops, RESP: b/l crackles in bases, wheezes or rhonchi Abd: soft, nontender, nondistended, + BS MSK: full ROM, 5/5 strength in all extremities, left BKA and right TMA- some yel low exudate noted without swelling or erythema, but tender Integumentary: no rash or bruises Neuro: AOAx3, no focal deficit psych: normal mood, good judgement and cooperative PAST MEDICAL HISTORY: DM2, CAD s/p stenting, PVD s/p left BKA, COPD, HTN and ESRD on HD T,R,Sa PAST SURGICAL HISTORY: cardiac cath cardiac stent placement cholecystectomy left groin vascular surgery left BKA 2013 hx right toe amputations Allergies Codeine (Verified Allergy, Unknown, 07/11/17) hives Contrast Media (Verified Allergy, Unknown, 09/06/11) Morphine (Verified Allergy, Unknown, 07/11/17) hives Social * Smoker: current smoker (5-6 cigarettes a day for 35+ years) Alcohol: Denies Drugs: denies lives at home with her son LABORATORY DATA: See below. IMAGING: [cxr //CT chest - right basilar infiltrate ] MICROBIOLOGY: Please see below. ASSESSMENT AND PLAN: Hyperkalemia -likely secondary to missed dialysis sessions -patient received Kayexalate in ED, monitor on telemetry -HD scheduled for tonight - - gave one dose of calcium gluconate due to potassium of 6.2. no ekg changes. ESRD on HD -nephrology consulted, patient to be dialyzed tonight -history of non-compliance with outpatient HD- missed HD and today PNA on cxr will give levaquin f/u sputum gs and cx f/u resp panel f/u procal HTN -continue with home medications -likely to improve with dialysis Dyslipidemia -c/w home statin therapy DM2 -sliding scale -const. carb diet -hypoglycemic protocol CAD s/p stent -c/w home aspirin and plavix and metoprolol and atorvastatin -Stable, EKG in ED reviewed, no concern for ST changes or ischemia actively COPD - duoneb and symbicort , Oxygen therapy dvt ppx GI ppx full code, from home Vital Signs Vital Signs Date Time Temp Pulse Resp B/P (MAP) Pulse Ox O2 Delivery O2 Flow Rate FiO2 05/12/18 18:42 97.6 62 18 168/72 (104) 96 Room Air Laboratory Data Labs 24H Laboratory Tests 2 05/12/18 15:57: Immature Granulocyte % (Auto) 0.8, White Blood Count 7.2, Red Blood Count 4.49, Hemoglobin 11.7L, Hematocrit 38.8, Mean Corpuscular Volume 86.4, Mean Corpuscular Hemoglobin 26.1L, Mean Corpuscular Hemoglobin Concent 30.2L, Red Cell Distribution Width 20.8H, Platelet Count 233, Neutrophils (%) (Auto) 82.2H, Lymphocytes (%) (Auto) 8.9L, Monocytes (%) (Auto) 6.5H, Eosinophils (%) (Auto) 1.0, Basophils (%) (Auto) 0.6, Neutrophils # (Auto) 5.9, Lymphocytes # (Auto) 0.6L, Monocytes # (Auto) 0.5, Eosinophils # (Auto) 0.1, Basophils # (Auto) 0.0, Nucleated Red Blood Cells % (auto) 0.0, Prothrombin Time 14.5H, Prothromb Time International Ratio 1.11, Activated Partial Thromboplast Time 28.1, Anion Gap 8, Glomerular Filtration Rate 7.2L, Calcium Level 7.2L, Aspartate Amino Transf (AST/SGOT) 80H, Alanine Aminotransferase (ALT/SGPT) 61, Alkaline Phosphatase 423H, Total Bilirubin 0.4, Direct Bilirubin 0.2, Total Creatine Kinase 79, Creatine Kinase MB 6.0H, Creatine Kinase MB Relative Index 7.72H, Troponin I 0.07, XL-[id number]-[id number]-Type Natriuretic Peptide [id number], Total Protein 6.4, Albumin 2.6L, Albumin/Globulin Ratio 0.68L, Lipase 105, Thyroid Stimulating Hormone (TSH) 5.670H, Free Thyroxine 0.58L 05/12/18 17:34: Bedside Glucose (Misc Panel) 280H CBC/BMP Laboratory Tests 05/12/18 15:57 Red Blood Count 4.49, Mean Corpuscular Volume 86.4, Mean Corpuscular Hemoglobin 26.1 L, Mean Corpuscular Hemoglobin Concent 30.2 L, Red Cell Distribution Width 20.8 H, Neutrophils (%) (Auto) 82.2 H, Lymphocytes (%) (Auto) 8.9 L, Monocytes (%) (Auto) 6.5 H, Eosinophils (%) (Auto) 1.0, Basophils (%) (Auto) 0.6, Neutrophils # (Auto) 5.9, Lymphocytes # (Auto) 0.6 L, Monocytes # (Auto) 0.5, Eosinophils # (Auto) 0.1, Basophils # (Auto) 0.0 Microbiology Microbiology 05/12/18 Blood Culture, Received Pending 05/12/18 Gram Stain, Received Pending 05/12/18 Wound Culture, Received Pending Home Medications Scheduled Alprazolam (Alprazolam) 0.5 Mg Tab, 0.5 MG PO TID Aspirin (Aspirin EC) 81 Mg Tab, 81 MG PO DAILY Atorvastatin Calcium (Atorvastatin Calcium) 40 Mg Tab, 40 MG PO QHS Calcium Acetate (Calcium Acetate) 667 Mg Cap, 1,334 MG PO WM Calcium Carbonate (Tums) 500 Mg Chw, 1,000 MG PO QHS Candesartan Cilexetil (Candesartan Cilexetil) 4 Mg Tab, 2 MG PO DAILY Clopidogrel Bisulfate (Clopidogrel) 75 Mg Tab, 75 MG PO DAILY Famotidine (Famotidine) 40 Mg Tab, 40 MG PO DAILY Fluticasone Propionate (Fluticasone Propionate) 50 Mcg/Act Spr, 1 SPRAY NA TID Fluticasone/Vilanterol (Breo Ellipta 100-25 Mcg/INH) 1 Inh Inh, 1 PUFF INH DAILY Hydralazine HCl (Hydralazine HCl) 10 Mg Tab, 10 MG PO TID Insulin Aspart (Novolog Flexpen) 100 Unit/Ml Inj, 0 SC AC PER SLIDING SCALE Insulin Detemir (Levemir) 1 Units/0.01 Ml Susp, 20 UNITS SC DAILY Metoprolol Tartrate (Metoprolol Tartrate) 50 Mg Tab, 50 MG PO BID Senna (Senna Laxative) 8.6 Mg Tab, 8.6 MG PO BID Sertraline HCl (Sertraline HCl) 100 Mg Tab, 100 MG PO DAILY Scheduled PRN Acetaminophen/Hydrocodone (Hydrocodone/Acetaminophen 10-325 mg) 1 Tab Tab, 1 TAB PO Q4H PRN for PAIN Albuterol Sulfate (Ventolin Hfa) 108 Mcg/Act Aer, 2 PUFFS INH QID PRN for SHORTNESS OF BREATH Nitroglycerin (Nitrostat) 0.4 Mg Subl, 0.4 MG SL Q5MP PRN for CHEST PAIN Nystatin (Nystatin Powder) 100,000 Unit/Gm Pow, 1 APLCT TOP BID PRN for RASH APPLY UNDER BREASTS, ABD FOLDS, GROIN Allergies Coded Allergies: Codeine (Verified Allergy, Intermediate, hives, 01/28/18) Morphine (Verified Allergy, Intermediate, hives, 01/28/18) Contrast Media (Verified Allergy, Unknown, 09/06/11) ALVARO BATES MD May 12, 2018 19:04
[2018-05-12] MEDS ORDERED: CALCIUM GLUCONATE 1,000 MG in D5W MINI-BAG PLUS 100 ML IV ONE (19:30)
--- NOTE | 2018-05-12 19:39 | ECGEPIP ---
Stationary ECG Study [facility] - ED Test Date: 2018-05-12 Pat Name: MIGUELITO MALAVE Department: Room: - Gender: F Cad Intern: jack : 1960 Requested By: Daniel Heath Order Number: [id number] Reading MD: Daniel Heath Measurements Intervals [place] Rate: 59 P: 26 NM: 198 QRS: 9 QRSD: 107 T: 155 QT: 476 QTc: 474 Interpretive Statements SINUS BRADYCARDIA POSSIBLE INFERIOR MYOCARDIAL INFARCTION, PROBABLY OLD LOW QRS VOLTAGE LIMB LEADS ST DEPRESSION LATERAL LEADS TO CONSIDER ISCHEMIA DEPAYED R WAVE PROGRESSION PROLONGED QTC CW 01/16/[address] T WAVE CHANGES Electronically Signed On 05-12-2018 19:39:25 EST by Daniel Heath
[2018-05-12] MEDS ORDERED: NITROGLYCERIN 0.4 MG SUBL TABLET SL PRN (19:45)
[2018-05-12] MEDS ORDERED: LevoFLOXacin IV 500 MG in APPROPRIATE DILUENT 1 EA IV ONE (20:00)
[2018-05-12] MEDS ORDERED: PILL CRUSHER/CUTTER 1 EACH XX PRN (20:15)
[2018-05-12] MEDS ORDERED: GLUCOSE 4 GM CHEW TABLET PO PRN (21:00)
[2018-05-12] MEDS: FLUTICASONE PROP 0.05% NASAL SPRAY 16 GM (FLONASE) SCH (21:00)
[2018-05-12] MEDS ORDERED: GLUCAGON FOR INJ 1 MG VIAL (J1610) SC PRN (21:00)
[2018-05-12] MEDS: SYMBICORT 80/4.5MCG INHALER 6GM INH SCH (21:00)
[2018-05-12] MEDS ORDERED: DEXTROSE 50% 50 ML SYRINGE IV PRN (21:00)
[2018-05-12 22:20] VITALS: BP 148/66
[2018-05-12] MEDS: CALCIUM ACETATE 667 MG GELCAP PO SCH (23:27)
[2018-05-12] MEDS: CALCIUM CARBONATE 500 MG CHEW U/D PO SCH (23:28)
[2018-05-12] MEDS: ATORVASTATIN 20 MG TAB PO SCH (23:29)
[2018-05-12] MEDS: HEPARIN SOD (PORCINE) 5000 UNITS/ML VIAL SC SCH (23:30)
[2018-05-12] MEDS: ALPRAZolam 0.5 MG TAB PO SCH (23:31)
[2018-05-12] MEDS: METOPROLOL TART 50 MG TAB PO SCH (23:31)
[2018-05-12] MEDS: **hydrALAZINE** 10 MG TAB PO SCH (23:32)
[2018-05-12] MEDS: NORCO, ANEXSIA 5/325MG TABLET (HYDROcodone/ACETAMINOPHEN) PO PRN (23:57)
[2018-05-13] MEDS: HumaLOG INSULIN (NovoLOG) PER UNIT SC SCH ×5 (00:59→21:00)
[2018-05-13 06:00] VITALS: BP 156/67
[2018-05-13] MEDS: HEPARIN SOD (PORCINE) 5000 UNITS/ML VIAL SC SCH ×4 (06:00→21:51)
[2018-05-13 06:31] LABS: HEMATOCRIT 36.4 % (36.0-47.0); HEMOGLOBIN 11.1 g/dl (12.0-15.5); LYMPH # 0.3 10^3/uL (1.5-4.5); MEAN CORPUSCULAR HGB CONC 30.5 g/dl (32.0-36.5); MEAN CORPUSCULAR VOLUME 85.2 fl (80.0-96.0); MONO # 0.2 10^3/uL (0.0-0.8); MONO % 5.7 % (0.0-5.0); NEUTROPHILS # 3.4 10^3/uL (1.8-7.7); NEUTROPHILS % 86.8 % (36.0-66.0); PLATELET COUNT, AUTOMATED 192 10^3/uL (150-450); RED BLOOD COUNT 4.27 10^6/uL (4.00-5.40); WHITE BLOOD COUNT 3.9 10^3/uL (4.0-10.0)
[2018-05-13 06:53] LABS: CREATININE FOR GFR 4.68 MG/DL (0.55-1.30); GLOMERULAR FILTRATION RATE 10.3 (>51); MAGNESIUM LEVEL 1.7 MG/DL (1.8-2.4); POTASSIUM SERUM 4.5 MEQ/L (3.5-5.1)
[2018-05-13] MEDS: SYMBICORT 80/4.5MCG INHALER 6GM INH SCH ×2 (07:20→20:39)
[2018-05-13] MEDS: LEVEMIR (INSULIN DETEMIR) 1 UNITS/0.01ML SC SCH (08:05)
[2018-05-13] MEDS: ASPIRIN 81 MG ENTERIC TAB PO SCH (08:06)
[2018-05-13] MEDS: ALPRAZolam 0.5 MG TAB PO SCH ×3 (08:06→21:18)
[2018-05-13] MEDS: METOPROLOL TART 50 MG TAB PO SCH ×2 (08:06→21:19)
[2018-05-13] MEDS: FLUTICASONE PROP 0.05% NASAL SPRAY 16 GM (FLONASE) SCH ×3 (08:06→21:20)
[2018-05-13] MEDS: CLOPIDOGREL 75 MG TAB PO SCH (08:07)
[2018-05-13] MEDS: CALCIUM ACETATE 667 MG GELCAP PO SCH ×4 (08:07→17:10)
[2018-05-13] MEDS: FAMOTIDINE 20 MG TAB PO SCH (08:07)
[2018-05-13] MEDS: CANDESARTAN 4MG TABLET PO SCH (08:07)
[2018-05-13] MEDS: **hydrALAZINE** 10 MG TAB PO SCH ×3 (08:07→21:20)
[2018-05-13] MEDS: SERTRALINE 100 MG TAB PO SCH (08:07)
--- NOTE | 2018-05-13 09:01 | REP ---
CHEST, PORTABLE: AP portable view of the chest is performed and compared to a prior study of 01/22/2018. There is cardiomegaly. There is a right pleural effusion with adjacent right basilar infiltrate. Left lung is clear. Right central venous catheter is present with the tip in the superior vena cava. IMPRESSION: Cardiomegaly. Right basilar effusion and infiltrate. Electronically Signed by Abhi Khoury MD 05/13/2018 06:52 P
--- NOTE | 2018-05-13 09:10 | IPNPDOC ---
Text Note Date of Service The patient was seen on 05/13/18. NOTE Subjective: Patient seen and examined at bedside. No acute overnight events. Patient has no new medical complaints this morning. Objective: General: NAD, sitting comfortably in wheelchair HEENT: NC/AT, EOMI Lungs: coarse breath sound b/l bases Heart: +S1S2, RRR Abd: soft, NT, +BS Ext: no edema, left BKA, right TMA ASSESSMENT: 58 y/o female with PMHx DM2, CAD s/p stenting, PVD s/p left BKA, COPD, HTN and ESRD on HD TTS. Non-compliant with dialysis who presents to the ED with complaints of SOB, wheezing and coughing. #PNA on cxr - continue with levaquin - f/u SCx - respiratory panel pending - procalcitonin pending # Hyperkalemia - resolved -likely secondary to missed dialysis sessions -patient received Kayexalate, calcium gluconate #ESRD on HD - follow as per nephrology - assistance appreciated - non-compliant with outpatient HD #HTN -continue with home medications #DLP -c/w home statin therapy #DM2 -sliding scale -const. carb diet -hypoglycemic protocol #CAD s/p stent -c/w home aspirin and plavix and metoprolol and atorvastatin #COPD - duoneb and symbicort , Oxygen therapy #nicotine abuse #non-compliance #DVT prophylaxis - heparin SC full code, from home VS,Fishbone, I+O VS, Fishbone, I+O Laboratory Tests 05/12/18 15:57 Red Blood Count 4.49, Mean Corpuscular Volume 86.4, Mean Corpuscular Hemoglobin 26.1 L, Mean Corpuscular Hemoglobin Concent 30.2 L, Red Cell Distribution Width 20.8 H, Neutrophils (%) (Auto) 82.2 H, Lymphocytes (%) (Auto) 8.9 L, Monocytes (%) (Auto) 6.5 H, Eosinophils (%) (Auto) 1.0, Basophils (%) (Auto) 0.6, Neutrophils # (Auto) 5.9, Lymphocytes # (Auto) 0.6 L, Monocytes # (Auto) 0.5, Eosinophils # (Auto) 0.1, Basophils # (Auto) 0.0 05/13/18 05:54 Red Blood Count 4.27, Mean Corpuscular Volume 85.2, Mean Corpuscular Hemoglobin 26.0 L, Mean Corpuscular Hemoglobin Concent 30.5 L, Red Cell Distribution Width 20.8 H, Neutrophils (%) (Auto) 86.8 H, Lymphocytes (%) (Auto) 7.0 L, Monocytes (%) (Auto) 5.7 H, Eosinophils (%) (Auto) 0.0, Basophils (%) (Auto) 0.0, Neutrophils # (Auto) 3.4, Lymphocytes # (Auto) 0.3 L, Monocytes # (Auto) 0.2, Eosinophils # (Auto) 0.0, Basophils # (Auto) 0.0, Calcium Level 7.0 L Vital Signs Date Time Temp Pulse Resp B/P (MAP) Pulse Ox O2 Delivery O2 Flow Rate FiO2 05/13/18 08:06 60 156/67 05/13/18 06:00 97.4 18 93 05/12/18 18:42 Room Air I&O- Last 24 Hours up to 6 AM 05/13/18 05:59 Intake Total 100 ml Output Total 3500 ml Balance -3400 ml JAVIER ORDONEZ MD May 13, 2018 09:09
--- NOTE | 2018-05-13 09:39 | REP ---
CT CHEST WITHOUT IV CONTRAST: CT chest performed without IV contrast. Sagittal and coronal reconstruction images are performed. Comparison is made with a prior study of 01/18/2018. There is a moderate right pleural effusion which has increased since the prior CT scan. There is adjacent patchy atelectasis or infiltrate in the right middle and lower lobes. Mild chronic interstitial opacities are seen in the left upper lobe. There is mild cardiomegaly again seen. There is no pericardial effusion. There are several nonenlarged axillary and mediastinal lymph nodes present. There is diffuse edema in the chest and abdominal rick similar to the prior study. There is mild perihepatic ascites. IMPRESSION: Mild increase in right pleural effusion which is now moderate in size. There is patchy atelectasis or infiltrate in the right middle and lower lobes. Mild cardiomegaly unchanged. There is diffuse edema in the chest and abdominal rick similar to the prior study. There is new mild perihepatic ascites. Electronically Signed by Abhi Khoury MD 05/13/2018 06:54 P
[2018-05-13] MEDS: NORCO, ANEXSIA 5/325MG TABLET (HYDROcodone/ACETAMINOPHEN) PO PRN (14:52)
[2018-05-13] MEDS: LevoFLOXacin IV 250 MG in APPROPRIATE DILUENT 1 EA IV SCH (21:18)
[2018-05-13] MEDS: CALCIUM CARBONATE 500 MG CHEW U/D PO SCH (21:18)
[2018-05-13] MEDS: ATORVASTATIN 20 MG TAB PO SCH (21:18)
--- NOTE | 2018-05-13 21:28 | CR ---
DATE OF CONSULTATION: 05/12/2018 REQUESTING PHYSICIAN: Dr. Nic Medley CONSULTING PHYSICIAN: Dr. Gael Villanueva REASON FOR CONSULTATION: Management of end-stage renal disease on hemodialysis. CHIEF COMPLAINT: Patient presented to the hospital with progressive shortness of breath. HISTORY OF PRESENT ILLNESS: Isabella Ibarra is a 58-year-old female with past medical history of end-stage renal disease on hemodialysis every Monday, , Monday, history of chronic obstructive pulmonary disease (COPD), hypertension, peripheral vascular disease, diabetes mellitus type 2, multiple other comorbidities. As mentioned below, she was in intervention radiology about 2 days ago for angiogram of the right lower extremity, however vascular surgery refused to do the procedure on her because she was hyperglycemic. She needed to be admitted to the hospital for optimization of blood glucose levels, however she signed out against medical advice (AMA). Today was her regular day of dialysis. Instead of going to the dialysis center for dialysis, she came back to the emergency room and claimed that she was having shortness of breath which was progressive with some wheezing. She denies any fevers and chills. She has chronic nonhealing right transmetatarsal amputation site infection. She was also found to be hyperkalemic with a potassium of 6.2 in the emergency room. I saw and evaluated the patient today evening in the emergency room. She was complaining of shortness of breath and coughing and she reports right lower extremity edema as well. PAST MEDICAL HISTORY: End-stage renal disease on hemodialysis every Monday, , Monday, hypertension, peripheral vascular disease, history of left below-knee amputation and right transmetatarsal amputation, coronary artery disease, diabetes mellitus type 2, chronic combined systolic and diastolic congestive heart failure with a left ventricular (LV) ejection fraction of around 15% as of October 2017. PAST SURGICAL HISTORY: Status post right upper arm arteriovenous (AV) fistula placement, status post left below-knee amputation, status post right transmetatarsal amputation, status post cholecystectomy, status post right internal jugular (IJ) tunneled hemodialysis catheter placement. ALLERGIES: Patient is allergic to CODEINE, CONTRAST MEDIA, and MORPHINE. FAMILY HISTORY: No significant family history of end-stage renal disease requiring hemodialysis. SOCIAL HISTORY: Patient is a chronic active smoker. She denies any illicit drug abuse or alcohol abuse. She lives at home with her son. REVIEW OF SYSTEMS: CONSTITUTIONAL: Patient reports feeling weak and tired and reports shortness of breath. EYES: She denies any blurry vision or double vision. EARS, NOSE, THROAT (ENT): She denies any dysphagia or odynophagia. CARDIOVASCULAR: She denies any chest pain or palpitations. RESPIRATORY: She reports progressive shortness of breath. GASTROINTESTINAL (GI): She denies any nausea or vomiting. GENITOURINARY: She denies any dysuria or hematuria. MUSCULOSKELETAL: She reports infected right transmetatarsal amputation site. CENTRAL NERVOUS SYSTEM (WINDSHIELD INSTALLER): She denies any strokes or seizures. SKIN: She denies any rashes. ENDOCRINE: She reports history of diabetes mellitus type 2. HEMATOLOGICAL/ONCOLOGICAL: She denies any easy bleeding or bruising. All other review of systems is negative. PHYSICAL EXAMINATION: GENERAL: Patient is awake, alert, oriented times three, in mild respiratory distress. VITAL SIGNS: Temperature 97.6 degrees Fahrenheit, blood pressure 168/72, pulse 62, respiratory rate 18, saturating 96% on room air. HEAD and NECK EXAM: Extraocular muscles intact. Pupils equally round and reactive to light. Mucous membranes are moist. Neck is supple. There is mildly elevated jugular venous distention (JVD). Right IJ tunneled hemodialysis catheter. CARDIOVASCULAR: S1, S2. 1+ edema of the right lower extremity. RESPIRATORY: Decreased breath sounds at the bases bilaterally with inspiratory crackles bilaterally on deep inspiration. ABDOMEN: Soft, positive bowel sounds, nontender. No organomegaly. MUSCULOSKELETAL: Patient has a right transmetatarsal amputation site ulcer which is covered with a dressing. She has a left below-knee amputation. WINDSHIELD INSTALLER: No focal deficit. Power is 5/5 in bilateral upper extremities. AV ACCESS: She has a right upper arm AV fistula which is not ready for dialysis at this point. LABORATORY REVIEW: CBC showed WBC of 7.2, hemoglobin 11.7, platelets are 233. BMP showed sodium 137, potassium 6.2, chloride 107, bicarbonate 22, BUN 106, creatinine 6.3, calcium 7.2, glucose 282. proBNP is 133,259. TSH is 5.6. MICROBIOLOGY: Blood cultures are pending. IMAGING: Chest x-ray is done which showed pulmonary edema and vascular congestion. Official report is still pending. CURRENT INPATIENT MEDICATIONS: Patient has got: - calcium gluconate - IV Levaquin - IV Zosyn one dose - Tylenol - albuterol nebulizations - Xanax - aspirin 81 mg daily - Lipitor 40 mg nightly - PhosLo 1334 mg by mouth with meals - Tums 1 gram nightly - candesartan 2 mg daily - Plavix 75 mg daily - DuoNeb nebulizations - Pepcid 40 mg daily - hydralazine 10 mg by mouth three times a day - insulin Levemir 20 units subcutaneous daily - insulin sliding scale - Solu-Medrol 125 mg IV times one dose - metoprolol 50 mg by mouth twice a day - Zofran 4 mg as needed - Veltassa 8.4 grams by mouth times one dose - Zoloft 100 mg daily - sodium bicarbonate 50 mEq IV times one dose ASSESSMENT: 58-year-old female with history of chronic combined severe congestive heart failure with a left ventricular ejection (LVEF) around 15%, end-stage renal disease on hemodialysis, diabetes mellitus type 2, peripheral vascular disease, right transmetatarsal amputation site nonhealing ulcer, admitted at this time because of shortness of breath and hyperkalemia after missing dialysis. PLAN: 1. Acute respiratory distress secondary to fluid overload. Patient is being emergently dialyzed today. I will try to remove at least 3 kg of fluid during hemodialysis today. 2. Hyperkalemia. It is secondary to missed dialysis. Apparently, patient did not go for last dialysis on . Patient will be dialyzed with a 1K bath. She was already emergently given calcium gluconate and Veltassa in the emergency room. Potassium is expected to improve after hemodialysis. 3. End-stage renal disease on hemodialysis. As mentioned above, today is patient's regular day of dialysis. She will be dialyzed for 3 hours and at least 3.5 kg of fluid will be removed. 4. Acute decompensated combined systolic and diastolic congestive heart failure. Patient is noncompliant with fluid restriction and outpatient dialysis. 3.5 liters of fluid will be removed. Continue home dose of candesartan, metoprolol, and hydralazine. Avoid use of calcium channel blockers. 5. Chronic kidney disease-mineral bone disease. Patient to continue home dose of PhosLo 1334 mg with meals and Tums once a day. 6. Diabetes mellitus type 2 insulin dependent. Continue home dose of Levemir and continue insulin sliding scale. Glucose is better controlled at this point. 7. Infiltrate on chest x-ray. I strongly believe that patient has pulmonary edema. However, she has empirically been started on Levaquin. Cultures are pending. 8. Chronic nonhealing right transmetatarsal amputation site ulcer. Patient was seen by interventional radiology as outpatient 2 days ago. Procedure was postponed because of hyperglycemia. The patient is noncompliant with medications. She was advised on admission at that time and she refused. I would request vascular surgery to see the patient again. Thank you for involving me in the care of this patient. I shall be happy to follow the patient along with you tomorrow morning. Total critical care time spent in the management of this patient today evening in the emergency room was 1 hour. That does not include any procedures.
[2018-05-13 22:00] VITALS: BP 114/56
[2018-05-14] MEDS: NORCO, ANEXSIA 5/325MG TABLET (HYDROcodone/ACETAMINOPHEN) PO PRN ×4 (00:16→23:29)
[2018-05-14 06:00] VITALS: BP 113/54
[2018-05-14] MEDS: HEPARIN SOD (PORCINE) 5000 UNITS/ML VIAL SC SCH ×3 (06:00→23:28)
[2018-05-14 06:13] LABS: BASO % 0.7 % (0.0-1.0); EOS # 0.1 10^3/uL (0.0-0.50); EOS % 1.6 % (0.0-3.0); HEMATOCRIT 35.4 % (36.0-47.0); LYMPH % 17.8 % (24.0-44.0); MEAN CORPUSCULAR HEMOGLOBIN 26.3 pg (27.0-33.0); MEAN CORPUSCULAR HGB CONC 31.1 g/dl (32.0-36.5); MEAN CORPUSCULAR VOLUME 84.5 fl (80.0-96.0); MONO # 0.5 10^3/uL (0.0-0.8); MONO % 8.7 % (0.0-5.0); NEUTROPHILS % 70.5 % (36.0-66.0); PLATELET COUNT, AUTOMATED 183 10^3/uL (150-450); RED BLOOD COUNT 4.19 10^6/uL (4.00-5.40); WHITE BLOOD COUNT 5.7 10^3/uL (4.0-10.0)
[2018-05-14 06:42] LABS: CALCIUM LEVEL 6.9 MG/DL (8.5-10.1); CREATININE FOR GFR 4.91 MG/DL (0.55-1.30); GLOMERULAR FILTRATION RATE 9.7 (>51); MAGNESIUM LEVEL 1.8 MG/DL (1.8-2.4); POTASSIUM SERUM 4.9 MEQ/L (3.5-5.1)
[2018-05-14] MEDS: SYMBICORT 80/4.5MCG INHALER 6GM INH SCH ×2 (08:28→20:13)
[2018-05-14] MEDS: LEVEMIR (INSULIN DETEMIR) 1 UNITS/0.01ML SC SCH (09:42)
[2018-05-14] MEDS: METOPROLOL TART 50 MG TAB PO SCH ×2 (09:43→23:25)
[2018-05-14] MEDS: ALPRAZolam 0.5 MG TAB PO SCH ×3 (09:43→23:26)
[2018-05-14] MEDS: SERTRALINE 100 MG TAB PO SCH (09:43)
[2018-05-14] MEDS: HumaLOG INSULIN (NovoLOG) PER UNIT SC SCH ×4 (09:43→23:26)
[2018-05-14] MEDS: CANDESARTAN 4MG TABLET PO SCH (09:44)
[2018-05-14] MEDS: ASPIRIN 81 MG ENTERIC TAB PO SCH (09:44)
[2018-05-14] MEDS: FAMOTIDINE 20 MG TAB PO SCH (09:44)
[2018-05-14] MEDS: CALCIUM ACETATE 667 MG GELCAP PO SCH ×3 (09:44→17:28)
[2018-05-14] MEDS: FLUTICASONE PROP 0.05% NASAL SPRAY 16 GM (FLONASE) SCH ×3 (09:44→23:27)
[2018-05-14] MEDS: CLOPIDOGREL 75 MG TAB PO SCH (09:44)
[2018-05-14] MEDS: **hydrALAZINE** 10 MG TAB PO SCH ×3 (09:44→23:25)
--- NOTE | 2018-05-14 10:12 | IPNPDOC ---
Text Note Date of Service The patient was seen on 05/14/18. NOTE Subjective: Patient seen and examined at bedside. No acute overnight events. Patient has no new medical complaints this morning. Objective: General: NAD, lying comfortably in bed HEENT: NC/AT, EOMI Lungs: coarse breath sound b/l bases Heart: +S1S2, RRR Abd: soft, NT, +BS Ext: no edema, left BKA, right TMA ASSESSMENT: 58 y/o female with PMHx DM2, CAD s/p stenting, PVD s/p left BKA, COPD, HTN and ESRD on HD TTS. Non-compliant with dialysis who presents to the ED with complaints of SOB, wheezing and coughing. #PNA on cxr - continue with levaquin - f/u SCx - respiratory panel pending - procalcitonin suggestive of infectious process # Hyperkalemia - resolved -likely secondary to missed dialysis sessions -patient received Kayexalate, calcium gluconate #ESRD on HD - follow as per nephrology - assistance appreciated - non-compliant with outpatient HD - planned for fistulogram today #HTN -continue with home medications #DLP -c/w home statin therapy #DM2 -sliding scale -const. carb diet -hypoglycemic protocol #CAD s/p stent -c/w home aspirin and plavix and metoprolol and atorvastatin #COPD - duoneb and symbicort , Oxygen therapy #nicotine abuse #non-compliance #DVT prophylaxis - heparin SC full code, from home VS,Fishbone, I+O VS, Fishbone, I+O Laboratory Tests 05/14/18 05:35 Red Blood Count 4.19, Mean Corpuscular Volume 84.5, Mean Corpuscular Hemoglobin 26.3 L, Mean Corpuscular Hemoglobin Concent 31.1 L, Red Cell Distribution Width 21.0 H, Neutrophils (%) (Auto) 70.5 H, Lymphocytes (%) (Auto) 17.8 L, Monocytes (%) (Auto) 8.7 H, Eosinophils (%) (Auto) 1.6, Basophils (%) (Auto) 0.7, Neutrophils # (Auto) 4.0, Lymphocytes # (Auto) 1.0 L, Monocytes # (Auto) 0.5, Eosinophils # (Auto) 0.1, Basophils # (Auto) 0.0, Calcium Level 6.9 L Vital Signs Date Time Temp Pulse Resp B/P (MAP) Pulse Ox O2 Delivery O2 Flow Rate FiO2 05/14/18 06:00 97.2 58 18 113/54 (73) 94 05/12/18 18:42 Room Air I&O- Last 24 Hours up to 6 AM 05/14/18 06:00 Intake Total 1400 ml Output Total 0 ml Balance 1400 ml JAVIER ORDONEZ MD May 14, 2018 10:12
[2018-05-14] MEDS: NYSTATIN 100,000 UNITS/GM TOPICAL PWD 15 GM TOP SCH ×2 (10:28→23:28)
[2018-05-14] MEDS ORDERED: HEPARIN 1,000 UNITS/ML 10ML VIAL (FOR RADIOLOGY& DIALYSIS ONLY) IV ONE (12:15)
[2018-05-14] MEDS ORDERED: HEPARIN 1,000 UNITS/ML 10ML VIAL (FOR RADIOLOGY& DIALYSIS ONLY) XX ONE (12:15)
--- NOTE | 2018-05-14 21:37 | IPN ---
DATE: 05/13/2018 SUBJECTIVE: Isabella is seen and examined this morning at the bedside. Denies any acute overnight events. Reports, "I just want to sleep." She was dialyzed yesterday with 3.5 liters removed. She refuses to tell me how many outpatient dialysis treatments she had missed. Vital Signs: Temperature 97.4, pulse 60, respiratory rate 18, blood pressure 156/67, saturating 93% on room air. Intake yesterday was not fully recorded. Hemodialysis yesterday removed 3.5 liters. The patient is seen lying in bed in no acute distress. Extraocular muscles are intact. Tongue is moist. Comfortable on room air. There is a right internal jugular (IJ) tunneled hemodialysis catheter present. Lungs show diminished breath sounds at the bases, otherwise clear. Abdomen is soft and nontender. There is some induration in the flanks. Cardiac: S1, S2, regular rate and rhythm. Extremities: There is 1+ edema present. The right upper extremity fistula has no appreciable thrill. There is a left yqnij-[id number]-[id number] amputation and a right transmetatarsal amputation (TMA). Neurologic: She is at her usual mentation, oriented, interactive and frustrated. LABORATORY: White count 3.9, hemoglobin 11.1, platelets 192. Sodium 133, potassium 4.5, bicarbonate 19, glucose 485. Blood cultures with no growth for 24 hours times one set. CT chest 05/12/2018 shows a moderate right pleural effusion and patchy atelectasis or infiltrate in the right middle and lower lobes, and there is also diffuse edema present in the chest and abdominal rick. INPATIENT MEDICATIONS: The patient is on Levaquin 250 mg IV daily. She was resumed on her candesartan 2 mg by mouth daily. Her insulin was adjusted per the primary team. Remainder of medications are unchanged from prior. PROBLEMS: 1. End-stage renal disease, on hemodialysis on a Monday, , Monday schedule. The patient is very noncompliant with dialysis as an outpatient. She is noncompliant with diet, fluid restriction. She is noncompliant with her hemodialysis treatments. She misses multiple treatments. She presented to the hospital this time with hyperkalemia and volume overload. She was dialyzed yesterday with 3.5 liters of fluid removed. Next dialysis will likely be on Monday for an extra treatment if the patient agrees for the same. 2. Systolic congestive heart failure, decompensated at present. Ejection fraction was 15% on her last echocardiogram, and she also has diastolic dysfunction. She is noncompliant with dialysis. She is chronically fluid overloaded. I will try to do an extra dialysis treatment if the patient agrees; she usually refuses. 3.5 liters were removed yesterday. 3. Hyperkalemia secondary to dietary indiscretions and missed dialysis session. This resolved with dialysis yesterday, and it is okay to resume the patient on her usual candesartan in view of her severe systolic congestive heart failure. 4. Peripheral vascular disease. She continues on her home medications - aspirin, statin, and Plavix. 5. History of coronary artery disease, status post stenting and systolic congestive heart failure. She continues on angiotensin receptor adeel, beta adeel, aspirin, statin, and Plavix. 6. Poorly controlled insulin-dependent diabetes. Insulin is adjusted per the primary team. Glucose ranged from 100s to 400s today.
[2018-05-14 22:00] VITALS: BP 110/60
[2018-05-14] MEDS: ATORVASTATIN 20 MG TAB PO SCH (23:25)
[2018-05-14] MEDS: CALCIUM CARBONATE 500 MG CHEW U/D PO SCH (23:26)
[2018-05-14] MEDS: LevoFLOXacin IV 250 MG in APPROPRIATE DILUENT 1 EA IV SCH (23:27)
[2018-05-14] MEDS: ONDANSETRON 4 MG TAB (S0181) PO PRN (23:31)
[2018-05-15 06:00] VITALS: BP 132/78
[2018-05-15] MEDS: HEPARIN SOD (PORCINE) 5000 UNITS/ML VIAL SC SCH ×3 (06:28→22:26)
[2018-05-15] MEDS: CANDESARTAN 4MG TABLET PO SCH (06:29)
[2018-05-15] MEDS: **hydrALAZINE** 10 MG TAB PO SCH ×3 (06:29→22:23)
[2018-05-15] MEDS: ALPRAZolam 0.5 MG TAB PO SCH ×3 (06:30→22:24)
[2018-05-15] MEDS: FLUTICASONE PROP 0.05% NASAL SPRAY 16 GM (FLONASE) SCH ×3 (06:30→22:26)
[2018-05-15] MEDS: CLOPIDOGREL 75 MG TAB PO SCH (06:30)
[2018-05-15] MEDS: SERTRALINE 100 MG TAB PO SCH (06:30)
[2018-05-15] MEDS: NYSTATIN 100,000 UNITS/GM TOPICAL PWD 15 GM TOP SCH ×2 (06:30→22:26)
[2018-05-15] MEDS: FAMOTIDINE 20 MG TAB PO SCH (06:30)
[2018-05-15] MEDS: ASPIRIN 81 MG ENTERIC TAB PO SCH (06:30)
[2018-05-15] MEDS: NORCO, ANEXSIA 5/325MG TABLET (HYDROcodone/ACETAMINOPHEN) PO PRN ×2 (06:31→22:27)
[2018-05-15] MEDS: METOPROLOL TART 50 MG TAB PO SCH ×2 (06:34→22:24)
[2018-05-15 07:00] LABS: BASO # 0.1 10^3/uL (0.0-0.2); BASO % 0.9 % (0.0-1.0); EOS # 0.1 10^3/uL (0.0-0.50); EOS % 1.7 % (0.0-3.0); HEMOGLOBIN 10.7 g/dl (12.0-15.5); LYMPH % 17.6 % (24.0-44.0); MEAN CORPUSCULAR HEMOGLOBIN 26.4 pg (27.0-33.0); MEAN CORPUSCULAR HGB CONC 30.6 g/dl (32.0-36.5); MEAN CORPUSCULAR VOLUME 86.2 fl (80.0-96.0); MONO # 0.5 10^3/uL (0.0-0.8); MONO % 8.9 % (0.0-5.0); NEUTROPHILS # 3.8 10^3/uL (1.8-7.7); NEUTROPHILS % 70.2 % (36.0-66.0); PLATELET COUNT, AUTOMATED 190 10^3/uL (150-450); RED BLOOD COUNT 4.06 10^6/uL (4.00-5.40); WHITE BLOOD COUNT 5.4 10^3/uL (4.0-10.0)
[2018-05-15 07:16] LABS: CALCIUM LEVEL 6.9 MG/DL (8.5-10.1); CREATININE FOR GFR 3.57 MG/DL (0.55-1.30); MAGNESIUM LEVEL 1.8 MG/DL (1.8-2.4); POTASSIUM SERUM 4.4 MEQ/L (3.5-5.1)
[2018-05-15] MEDS: HumaLOG INSULIN (NovoLOG) PER UNIT SC SCH ×4 (08:21→22:25)
[2018-05-15] MEDS: CALCIUM ACETATE 667 MG GELCAP PO SCH ×3 (08:21→17:29)
[2018-05-15] MEDS: LEVEMIR (INSULIN DETEMIR) 1 UNITS/0.01ML SC SCH (08:23)
[2018-05-15] MEDS ORDERED: HEPARIN 1,000 UNITS/ML 10ML VIAL (FOR RADIOLOGY& DIALYSIS ONLY) XX ONE (11:30)
[2018-05-15] MEDS ORDERED: HEPARIN 1,000 UNITS/ML 10ML VIAL (FOR RADIOLOGY& DIALYSIS ONLY) IV ONE (11:30)
[2018-05-15] MEDS: SYMBICORT 80/4.5MCG INHALER 6GM INH SCH ×2 (11:42→20:03)
--- NOTE | 2018-05-15 14:33 | IPN ---
DATE: 05/14/2018 SUBJECTIVE: Isabella is seen and examined this morning at the bedside and again in the afternoon on dialysis, receiving an extra treatment due to her fluid overload. She denies any acute overnight events. Vital Signs: Temperature 97.2, pulse 58, respiratory rate 18, blood pressure 113/54, saturating 94 to 99% on room air. Intake yesterday was 1500, goal fluid removal with dialysis today will be 3.5 liters. PHYSICAL EXAMINATION: GENERAL: The patient is seen awake, alert, comfortable, in no acute distress. Appears older than stated age. Extraocular muscles are intact. Tongue is moist. Neck is supple There is a right internal jugular (IJ) tunneled hemodialysis catheter present. Cardiac: S1, S2, regular rate and rhythm. Lungs show diminished breath sounds at the bases and improvement in her prior crackles. Abdomen is soft and nontender. Extremities: The lower extremities show a right transmetatarsal amputation (TMA) with dressing and a left below the knee amputation. There is 1+ edema in the legs. Her right upper extremity fistula is not patent. There is no appreciable thrill. Neurologic: She is at her usual mentation, oriented, interactive. LABORATORY: White count 5.7, hemoglobin 11.0, platelets 183. Sodium 132, potassium 4.9. INPATIENT MEDICATIONS: Reviewed by myself and unchanged from prior. PROBLEMS: 1. End-stage renal disease, on hemodialysis on a Monday, , Monday schedule. The patient is chronically noncompliant with dialysis and misses multiple treatments. She is also noncompliant with fluid restriction and dietary restriction. She presented with hyperkalemia and significant fluid overload. She is receiving an extra dialysis treatment today for further control of her volume status. 2. Decompensated systolic and diastolic congestive heart failure. Her left ventricular ejection fraction on most recent echocardiogram was 15%. She is grossly volume overloaded. She is receiving an extra dialysis treatment today. She is noncompliant as an outpatient. She continues on her usual congestive heart failure (CHF) medications, including ARB, beta adeel, hydralazine. She has a history of coronary artery disease and she continues on aspirin, statin and Plavix. 3. Hypertension. Blood pressure is acceptable and no changes are being made to the current medications. 4. Immature/nonpatent fistula in the right upper extremity. The patient is pending further vascular intervention, including fistulogram.
[2018-05-15] MEDS ORDERED: DARBEPOETIN 100 MCG/0.5 ML *DIALYSIS* SYRINGE (J0882) IV SCH (14:45)
[2018-05-15 15:16] LABS: PERCENT SATURATION 19.2 % (13.2-45.0)
--- NOTE | 2018-05-15 18:58 | IPN ---
DATE: 05/15/2018 SUBJECTIVE: Patient is seen and examined in the room today. Patient complaining about discomfort of her lower back. Patient also complained of the pain at the right lower extremity where she had a wound. Denies any fever or chills. OBJECTIVE: VITAL SIGNS: Temperature is 97.8, pulse 60, respirations 20, blood pressure 132/78, pulse oximetry 93% on room air. GENERAL: Mild distress. Alert and awake. HEENT: Normocephalic, atraumatic. Extraocular movements grossly intact. CARDIOVASCULAR: Positive S1, S2, regular rate. LUNGS: Coarse lung sounds. Diminished breath sounds. No wheezes appreciated. ABDOMEN: Soft, nontender, nondistended. EXTREMITIES: There is a dressing wrapped at the right foot. Left below the knee amputation (BKA). LABORATORY DATA: WBC is 5.4, hemoglobin 10.7, hematocrit 35, platelet count is 190. Sodium is 136, potassium 4.4, chloride 102. Carbon dioxide 25, BUN 46, creatinine 3.57. GFR is 14, fasting glucose 280. Calcium is 6.9. Magnesium 1.8. Iron is 42. TIBC is 219. ASSESSMENT AND PLAN: 1. Decompensated systolic diastolic congestive heart failure. Most recent echo was done October 2017. Ejection fraction (EF) 15%, grade 1 diastolic dysfunction. Patient has a history of noncompliance. Patient has missed multiple dialysis sessions prior to admission. Currently change manager is assisting on the dialysis and fluid management. Appreciate their assistance. 2. Patchy infiltrate or atelectasis on imaging study. Patient placed on empiric antibiotics. Continue to monitor the patient. Respiratory panel ordered. 3. End-stage renal disease, on hemodialysis. Nephrology consulted. 4. Hypertension. On hydralazine, metoprolol. 5. Diabetes. Levemir. On sliding scale. 6. Coronary artery disease, status post stent. Aspirin, Lipitor and Plavix. 7. COPD. Continue as needed nebulizers. Currently no sign of exacerbation. 8. Medical noncompliance complicates patient care. 9. Deep venous thrombosis (DVT) prophylaxis. On heparin.
[2018-05-15] MEDS ORDERED: predniSONE 50 MG TAB PO ONE (19:00)
[2018-05-15] MEDS ORDERED: diphenhydrAMINE 50 MG CAP PO ONE (19:00)
[2018-05-15 22:00] VITALS: BP 138/59
[2018-05-15] MEDS: ATORVASTATIN 20 MG TAB PO SCH (22:24)
[2018-05-15] MEDS: CALCIUM CARBONATE 500 MG CHEW U/D PO SCH (22:24)
[2018-05-15] MEDS: LevoFLOXacin IV 250 MG in APPROPRIATE DILUENT 1 EA IV SCH (22:25)
[2018-05-16] MEDS ORDERED: predniSONE 50 MG TAB PO ONE ×2 (00:05→06:40)
[2018-05-16] MEDS ORDERED: diphenhydrAMINE 50 MG CAP PO ONE ×2 (00:05→06:40)
[2018-05-16] MEDS: HumaLOG INSULIN (NovoLOG) PER UNIT SC SCH ×6 (00:52→22:12)
[2018-05-16] MEDS: HEPARIN SOD (PORCINE) 5000 UNITS/ML VIAL SC SCH ×3 (05:25→22:08)
[2018-05-16 05:53] LABS: BASO % 0.2 % (0.0-1.0); HEMATOCRIT 37.2 % (36.0-47.0); HEMOGLOBIN 11.3 g/dl (12.0-15.5); LYMPH # 0.3 10^3/uL (1.5-4.5); MEAN CORPUSCULAR HEMOGLOBIN 26.3 pg (27.0-33.0); MEAN CORPUSCULAR HGB CONC 30.4 g/dl (32.0-36.5); MEAN CORPUSCULAR VOLUME 86.5 fl (80.0-96.0); MONO % 0.8 % (0.0-5.0); NEUTROPHILS # 4.3 10^3/uL (1.8-7.7); NEUTROPHILS % 91.2 % (36.0-66.0); PLATELET COUNT, AUTOMATED 182 10^3/uL (150-450); WHITE BLOOD COUNT 4.7 10^3/uL (4.0-10.0)
[2018-05-16 06:14] LABS: CALCIUM LEVEL 6.9 MG/DL (8.5-10.1); CREATININE FOR GFR 2.98 MG/DL (0.55-1.30); GLOMERULAR FILTRATION RATE 17.3 (>51); MAGNESIUM LEVEL 1.8 MG/DL (1.8-2.4); POTASSIUM SERUM 4.4 MEQ/L (3.5-5.1)
[2018-05-16 06:30] VITALS: BP 170/78
[2018-05-16] MEDS: NORCO, ANEXSIA 5/325MG TABLET (HYDROcodone/ACETAMINOPHEN) PO PRN ×4 (06:51→22:13)
[2018-05-16] MEDS ORDERED: MIDAZOLAM INJ 2 MG/2 ML VIAL (J2250) As Ordered ONE (07:22)
[2018-05-16] MEDS ORDERED: fentaNYL 100 MCG/2 ML INJECTION (J3010) As Ordered ONE (07:22)
[2018-05-16] MEDS ORDERED: HEPARIN 1,000 UNITS/ML 10ML VIAL (FOR RADIOLOGY& DIALYSIS ONLY) As Ordered ONE (07:23)
[2018-05-16] MEDS ORDERED: ISOVUE-300 61% 50ML VIAL (Q9967) As Ordered ONE (07:23)
[2018-05-16] MEDS ORDERED: LIDOCAINE 2% MDV 20 ML VIAL As Ordered ONE (07:23)
[2018-05-16] MEDS: ALPRAZolam 0.5 MG TAB PO SCH ×4 (09:00→20:11)
[2018-05-16] MEDS: FLUTICASONE PROP 0.05% NASAL SPRAY 16 GM (FLONASE) SCH ×3 (09:00→20:11)
[2018-05-16] MEDS ORDERED: PROTAMINE SULF INJ 50 MG/5 ML VIAL (J2720) As Ordered ONE (10:00)
[2018-05-16] MEDS: CALCIUM ACETATE 667 MG GELCAP PO SCH ×3 (11:55→17:54)
[2018-05-16] MEDS: **hydrALAZINE** 10 MG TAB PO SCH ×3 (11:56→20:11)
[2018-05-16] MEDS: CANDESARTAN 4MG TABLET PO SCH (11:57)
[2018-05-16] MEDS: ASPIRIN 81 MG ENTERIC TAB PO SCH (11:57)
[2018-05-16] MEDS: FAMOTIDINE 20 MG TAB PO SCH (11:58)
[2018-05-16] MEDS: CLOPIDOGREL 75 MG TAB PO SCH (11:58)
[2018-05-16] MEDS: LEVEMIR (INSULIN DETEMIR) 1 UNITS/0.01ML SC SCH (11:59)
[2018-05-16 12:00] VITALS: BP 140/80
[2018-05-16] MEDS: NYSTATIN 100,000 UNITS/GM TOPICAL PWD 15 GM TOP SCH ×2 (12:00→20:11)
[2018-05-16] MEDS: SYMBICORT 80/4.5MCG INHALER 6GM INH SCH ×2 (12:00→19:50)
[2018-05-16] MEDS: METOPROLOL TART 50 MG TAB PO SCH ×2 (12:24→20:11)
[2018-05-16] MEDS: SERTRALINE 100 MG TAB PO SCH (12:25)
[2018-05-16 14:00] VITALS: BP 199/80
[2018-05-16 15:00] VITALS: BP 164/73
--- NOTE | 2018-05-16 15:27 | IPN ---
DATE: 05/15/2018 SUBJECTIVE: Isabella is seen and examined this morning at the bedside. She complains of difficulty sleeping overnight. She has pain in her foot. She was dialyzed yesterday with 4 liters of fluid removed and she agrees to go for dialysis this afternoon as well. VITAL SIGNS: Temperature 97.8, pulse 60, respiratory rate 20, blood pressure 132/78, saturating 93% on room air. Intake yesterday was not fully recorded. Dialysis yesterday removed 4000 mL. Weight in the bed scale today is 77.8 kg. GENERAL: The patient is seen lying in bed, sleepy, but easily arousable, in no acute distress, oriented and interactive. Extraocular muscles are intact. Tongue is moist. She is comfortable on room air. There is a right internal jugular (IJ) tunneled hemodialysis catheter present. Lungs show diminished breath sounds at the bases, otherwise clear. Abdomen is soft and nontender. There is some induration and pitting edema in the flanks. CARDIAC: S1, S2, regular rate and rhythm. EXTREMITIES: The right upper extremity fistula is not patent. The is a left gwnxo-uvy-keag amputation and a right transmetatarsal amputation (TMA). There is 1+ edema present in her lower extremities. NEUROLOGIC: She is at her usual mentation, oriented, interactive and frustrated. LABORATORY DATA: White count 5.4, hemoglobin 10.7, platelets 190. Sodium 136, potassium 4.4, bicarbonate 25. Right foot wound culture grew Enterobacter cloacae complex. Blood cultures have been no growth for 48 hours times two sets. INPATIENT MEDICATIONS: Reviewed by myself and no change from prior. PROBLEMS: 1. End-stage renal disease, on hemodialysis on a Monday, , Monday schedule. The patient is chronically noncompliant with dialysis as an outpatient. She misses treatments. There is dietary noncompliance and noncompliance with fluid restriction. She was dialyzed emergently on Monday for hyperkalemia. She was dialyzed again yesterday because of fluid overload and congestive heart failure (CHF) exacerbation and she will be dialyzed again today with goal fluid removal of about three liters. After that, I will plan to resume her usual Monday, , Monday schedule. 2. Systolic congestive heart failure, decompensated. Ejection fraction 15% on last echocardiogram. She also has diastolic dysfunction. She is noncompliant with dialysis. She is chronically fluid overloaded. She received an treatment yesterday with 4 liters of fluid removed. She is being dialyzed again today with goal fluid removal of another three liters. She is counseled regarding compliance with her outpatient schedule and also with dietary and fluid restrictions. In view of her congestive heart failure, she also continues on her low dose angiotensin receptor adeel and her beta adeel. She has coronary artery disease and continues on aspirin, statin, and Plavix. She has significant peripheral vascular disease as well. 3. Anemia related to chronic renal failure. Hemoglobin is 10.7 which is acceptable. Iron studies are pending and she will receive weekly Aranesp.
--- NOTE | 2018-05-16 17:32 | IPNPDOC ---
Text Note Date of Service The patient was seen on 05/16/18. NOTE SUBJECTIVE: Patient is seen and examined in the room today. Patient states her lower extremity pain is under better control. Denies acute complaint. OBJECTIVE: VITAL SIGNS: Listed below. GENERAL: No distress. Alert and awake. HEENT: Normocephalic, atraumatic. Extraocular movements grossly intact. CARDIOVASCULAR: Positive S1, S2, regular rate. LUNGS: Coarse lung sounds. Diminished breath sounds. No wheezes appreciated. ABDOMEN: Soft, nontender, nondistended. MSK: Dialysis catheter located at right upper chest. AV fistula at right upper extremity. Right foot is wrapped with dressing. Left below the knee amputation (BKA). LABORATORY DATA: Listed below. ASSESSMENT AND PLAN: #. Decompensated systolic diastolic congestive heart failure. - echocardiogram was done on October 2017. Ejection fraction (EF) 15%, grade 1 diastolic dysfunction. - Patient has a history of noncompliance. Patient has missed multiple dialysis sessions prior to admission. Currently jackerman is assisting on the dialysis and fluid management. Appreciate their assistance. #. End-stage renal disease - Nephrology consulted. Hemodialysis through dialysis catheter. - Right arm AV fistula is not ready. Discussed with vascular surgery. Continue outpatient followup. # Right foot wound. - Vascular surgery consulted. Angiogram of lower extremity on 05/16/18. Possible wound debridement on 05/18/18. #. Patchy infiltrate or atelectasis on imaging study. - Patient placed on empiric antibiotics. Continue to monitor the patient. Respiratory panel ordered. #. Hypertension. - On hydralazine, metoprolol. #. Diabetes. - Levemir. On sliding scale. #. Coronary artery disease, status post stent. - Aspirin, Lipitor and Plavix. #. COPD. - Continue as needed nebulizers. Currently no sign of exacerbation. #. Medical noncompliance. complicating patient's care. #. Deep venous thrombosis (DVT) prophylaxis. On heparin. VS,Fishbone, I+O VS, Fishbone, I+O Laboratory Tests 05/16/18 05:42 Red Blood Count 4.30, Mean Corpuscular Volume 86.5, Mean Corpuscular Hemoglobin 26.3 L, Mean Corpuscular Hemoglobin Concent 30.4 L, Red Cell Distribution Width 21.2 H, Neutrophils (%) (Auto) 91.2 H, Lymphocytes (%) (Auto) 7.0 L, Monocytes (%) (Auto) 0.8, Eosinophils (%) (Auto) 0.0, Basophils (%) (Auto) 0.2, Neutrophils # (Auto) 4.3, Lymphocytes # (Auto) 0.3 L, Monocytes # (Auto) 0.0, Eosinophils # (Auto) 0.0, Basophils # (Auto) 0.0, Calcium Level 6.9 L Vital Signs Date Time Temp Pulse Resp B/P (MAP) Pulse Ox O2 Delivery O2 Flow Rate FiO2 05/16/18 16:22 16 05/16/18 15:50 150/70 05/16/18 15:00 98.6 62 95 05/12/18 18:42 Room Air I&O- Last 24 Hours up to 6 AM 05/16/18 06:00 Intake Total 570 ml Output Total 3300 ml Balance -2730 ml WILIAM JOHNS DO May 16, 2018 17:32
[2018-05-16] MEDS: SANTYL OINT 30GM TOP SCH (17:49)
[2018-05-16] MEDS: LevoFLOXacin 250 MG TABLET PO SCH (17:55)
[2018-05-16] MEDS: CALCIUM CARBONATE 500 MG CHEW U/D PO SCH (20:11)
[2018-05-16] MEDS: ATORVASTATIN 20 MG TAB PO SCH (20:11)
[2018-05-16] MEDS ORDERED: GLUCAGON FOR INJ 1 MG VIAL (J1610) SC PRN ×2 (21:00)
[2018-05-16] MEDS ORDERED: GLUCOSE 4 GM CHEW TABLET PO PRN ×2 (21:00)
[2018-05-16] MEDS ORDERED: DEXTROSE 50% 50 ML SYRINGE IV PRN ×2 (21:00)
[2018-05-16 22:00] VITALS: BP 138/60
[2018-05-17] MEDS: NORCO, ANEXSIA 5/325MG TABLET (HYDROcodone/ACETAMINOPHEN) PO PRN ×3 (05:20→22:46)
[2018-05-17 05:47] LABS: BASO % 0.2 % (0.0-1.0); HEMATOCRIT 35.7 % (36.0-47.0); HEMOGLOBIN 11.1 g/dl (12.0-15.5); LYMPH % 11.7 % (24.0-44.0); MEAN CORPUSCULAR HEMOGLOBIN 26.9 pg (27.0-33.0); MEAN CORPUSCULAR HGB CONC 31.1 g/dl (32.0-36.5); MEAN CORPUSCULAR VOLUME 86.7 fl (80.0-96.0); MONO # 0.8 10^3/uL (0.0-0.8); MONO % 9.3 % (0.0-5.0); NEUTROPHILS # 6.5 10^3/uL (1.8-7.7); NEUTROPHILS % 78.2 % (36.0-66.0); PLATELET COUNT, AUTOMATED 213 10^3/uL (150-450); RED BLOOD COUNT 4.12 10^6/uL (4.00-5.40); WHITE BLOOD COUNT 8.4 10^3/uL (4.0-10.0)
[2018-05-17 06:00] VITALS: BP 140/58
[2018-05-17 06:08] LABS: CALCIUM LEVEL 6.7 MG/DL (8.5-10.1); CREATININE FOR GFR 3.78 MG/DL (0.55-1.30); GLOMERULAR FILTRATION RATE 13.1 (>51); MAGNESIUM LEVEL 1.9 MG/DL (1.8-2.4); POTASSIUM SERUM 4.2 MEQ/L (3.5-5.1)
[2018-05-17] MEDS: HEPARIN SOD (PORCINE) 5000 UNITS/ML VIAL SC SCH ×3 (06:41→22:09)
[2018-05-17] MEDS: CANDESARTAN 4MG TABLET PO SCH (06:42)
[2018-05-17] MEDS: **hydrALAZINE** 10 MG TAB PO SCH ×3 (06:42→22:10)
[2018-05-17] MEDS: FAMOTIDINE 20 MG TAB PO SCH (06:43)
[2018-05-17] MEDS: METOPROLOL TART 50 MG TAB PO SCH ×2 (06:43→22:10)
[2018-05-17] MEDS: CLOPIDOGREL 75 MG TAB PO SCH (06:43)
[2018-05-17] MEDS: ALPRAZolam 0.5 MG TAB PO SCH ×3 (06:43→20:16)
[2018-05-17] MEDS: SERTRALINE 100 MG TAB PO SCH (06:43)
[2018-05-17] MEDS: ASPIRIN 81 MG ENTERIC TAB PO SCH (06:43)
[2018-05-17] MEDS: NYSTATIN 100,000 UNITS/GM TOPICAL PWD 15 GM TOP SCH ×2 (06:44→22:09)
[2018-05-17] MEDS: FLUTICASONE PROP 0.05% NASAL SPRAY 16 GM (FLONASE) SCH ×3 (06:44→22:08)
[2018-05-17] MEDS: SYMBICORT 80/4.5MCG INHALER 6GM INH SCH ×2 (07:48→18:45)
[2018-05-17] MEDS: CALCIUM ACETATE 667 MG GELCAP PO SCH ×3 (08:00→17:19)
[2018-05-17] MEDS: HumaLOG INSULIN (NovoLOG) PER UNIT SC SCH ×4 (09:53→21:00)
[2018-05-17] MEDS: LEVEMIR (INSULIN DETEMIR) 1 UNITS/0.01ML SC SCH (09:54)
[2018-05-17] MEDS: SANTYL OINT 30GM TOP SCH (09:55)
[2018-05-17] MEDS ORDERED: IRON SUCROSE 100MG 5ML VIAL (J1756 PER 1MG) IV SCH (12:00)
[2018-05-17] MEDS: IPRATROPIUM 0.5MG/ALBUTEROL 2.5MG INH SOL UD 3ML (DUONEB)(J7620) NEB PRN (12:45)
[2018-05-17 14:00] VITALS: BP 130/54
--- NOTE | 2018-05-17 16:51 | IPNPDOC ---
Text Note Date of Service The patient was seen on 05/17/18. NOTE SUBJECTIVE: Patient is seen and examined in the room today. Patient complains about right groin discomfort where she had angiogram insertion. She also complains about right lower extremity pain. OBJECTIVE: VITAL SIGNS: Listed below. GENERAL: No distress. Alert and awake. HEENT: Normocephalic, atraumatic. Extraocular movements grossly intact. CARDIOVASCULAR: Positive S1, S2, regular rate. LUNGS: Coarse lung sounds. Diminished breath sounds. No wheeze appreciated. ABDOMEN: Soft, nontender, nondistended. MSK: Dialysis catheter located at right upper chest. AV fistula at right upper extremity. Right foot is wrapped with dressing. Left below the knee amputation (BKA). LABORATORY DATA: Listed below. ASSESSMENT AND PLAN: #. Decompensated systolic diastolic congestive heart failure. - Echocardiogram was done on October 2017. Ejection fraction (EF) 15%, grade 1 diastolic dysfunction. - Patient has a history of noncompliance. Patient has missed multiple dialysis sessions prior to admission. Currently hand scudder is assisting on the dialysis and fluid management. Appreciate their assistance. # Right foot wound. - Vascular surgery consulted. Angiogram of lower extremity on 05/16/18. Possible wound debridement on 05/18/18. #. End-stage renal disease - Nephrology consulted. Hemodialysis through dialysis catheter. - Right arm AV fistula is not ready. Discussed with vascular surgery. Continue outpatient followup. #. Patchy infiltrate or atelectasis on imaging study. - Patient placed on empiric antibiotics. Continue to monitor the patient. Respiratory panel is negative. #. Hypertension. - On hydralazine, metoprolol. #. Diabetes. - Levemir. On sliding scale. #. Coronary artery disease, status post stent. - Aspirin, Lipitor and Plavix. #. COPD. - Continue as needed nebulizers. No sign of exacerbation. #. Medical noncompliance. Complicating patient's care. #. Deep venous thrombosis (DVT) prophylaxis. On heparin. VS,Fishbone, I+O VS, Fishbone, I+O Laboratory Tests 05/17/18 05:31 Red Blood Count 4.12, Mean Corpuscular Volume 86.7, Mean Corpuscular Hemoglobin 26.9 L, Mean Corpuscular Hemoglobin Concent 31.1 L, Red Cell Distribution Width 21.5 H, Neutrophils (%) (Auto) 78.2 H, Lymphocytes (%) (Auto) 11.7 L, Monocytes (%) (Auto) 9.3 H, Eosinophils (%) (Auto) 0.0, Basophils (%) (Auto) 0.2, N eutrophils # (Auto) 6.5, Lymphocytes # (Auto) 1.0 L, Monocytes # (Auto) 0.8, Eosinophils # (Auto) 0.0, Basophils # (Auto) 0.0, Calcium Level 6.7 L Vital Signs Date Time Temp Pulse Resp B/P (MAP) Pulse Ox O2 Delivery O2 Flow Rate FiO2 05/17/18 14:00 130/54 (79) 05/17/18 06:43 62 05/17/18 06:00 96.8 19 93 05/12/18 18:42 Room Air I&O- Last 24 Hours up to 6 AM 05/17/18 06:00 Intake Total 1020 ml Output Total 300 ml Balance 720 ml WILIAM JOHNS DO May 17, 2018 16:51
[2018-05-17] MEDS: LevoFLOXacin 250 MG TABLET PO SCH (17:19)
[2018-05-17] MEDS: ATORVASTATIN 20 MG TAB PO SCH (20:16)
[2018-05-17] MEDS: CALCIUM CARBONATE 500 MG CHEW U/D PO SCH (20:17)
[2018-05-17 22:00] VITALS: BP 148/67
[2018-05-18] MEDS: IPRATROPIUM 0.5MG/ALBUTEROL 2.5MG INH SOL UD 3ML (DUONEB)(J7620) NEB PRN (00:08)
[2018-05-18] MEDS: NORCO, ANEXSIA 5/325MG TABLET (HYDROcodone/ACETAMINOPHEN) PO PRN ×3 (02:45→21:48)
[2018-05-18 06:00] VITALS: BP 130/72
[2018-05-18] MEDS: CALCIUM ACETATE 667 MG GELCAP PO SCH ×6 (06:11→18:00)
[2018-05-18] MEDS: HEPARIN SOD (PORCINE) 5000 UNITS/ML VIAL SC SCH ×3 (06:11→21:41)
[2018-05-18] MEDS: ONDANSETRON 4 MG TAB (S0181) PO PRN (06:15)
[2018-05-18 08:01] LABS: HEMATOCRIT 35.1 % (36.0-47.0); HEMOGLOBIN 10.7 g/dl (12.0-15.5); MEAN CORPUSCULAR HEMOGLOBIN 26.5 pg (27.0-33.0); MEAN CORPUSCULAR HGB CONC 30.5 g/dl (32.0-36.5); MEAN CORPUSCULAR VOLUME 86.9 fl (80.0-96.0); PLATELET COUNT, AUTOMATED 190 10^3/uL (150-450); RED BLOOD COUNT 4.04 10^6/uL (4.00-5.40)
[2018-05-18] MEDS: SYMBICORT 80/4.5MCG INHALER 6GM INH SCH ×2 (08:03→19:45)
[2018-05-18] MEDS: HumaLOG INSULIN (NovoLOG) PER UNIT SC SCH ×4 (08:04→21:40)
[2018-05-18] MEDS: ALPRAZolam 0.5 MG TAB PO SCH ×3 (08:04→21:41)
[2018-05-18] MEDS: CLOPIDOGREL 75 MG TAB PO SCH (08:04)
[2018-05-18] MEDS: SERTRALINE 100 MG TAB PO SCH (08:04)
[2018-05-18] MEDS: METOPROLOL TART 50 MG TAB PO SCH ×2 (08:06→21:40)
[2018-05-18] MEDS: ASPIRIN 81 MG ENTERIC TAB PO SCH (08:06)
[2018-05-18] MEDS: **hydrALAZINE** 10 MG TAB PO SCH ×3 (08:07→21:41)
[2018-05-18] MEDS: FAMOTIDINE 20 MG TAB PO SCH (08:07)
[2018-05-18] MEDS: CANDESARTAN 4MG TABLET PO SCH (08:07)
[2018-05-18] MEDS: NYSTATIN 100,000 UNITS/GM TOPICAL PWD 15 GM TOP SCH ×2 (08:08→21:41)
[2018-05-18] MEDS: FLUTICASONE PROP 0.05% NASAL SPRAY 16 GM (FLONASE) SCH ×3 (08:08→21:41)
[2018-05-18] MEDS: SANTYL OINT 30GM TOP SCH (08:09)
[2018-05-18] MEDS: LEVEMIR (INSULIN DETEMIR) 1 UNITS/0.01ML SC SCH (08:09)
[2018-05-18 08:35] LABS: CALCIUM LEVEL 6.7 MG/DL (8.5-10.1); CREATININE FOR GFR 4.52 MG/DL (0.55-1.30); GLOMERULAR FILTRATION RATE 10.7 (>51); POTASSIUM SERUM 5.5 MEQ/L (3.5-5.1)
[2018-05-18] MEDS ORDERED: HEPARIN 1,000 UNITS/ML 10ML VIAL (FOR RADIOLOGY& DIALYSIS ONLY) XX ONE (10:15)
[2018-05-18] MEDS ORDERED: HEPARIN 1,000 UNITS/ML 10ML VIAL (FOR RADIOLOGY& DIALYSIS ONLY) IV ONE (10:15)
[2018-05-18 14:15] VITALS: BP 148/64
--- NOTE | 2018-05-18 15:21 | IPN ---
DATE: 05/16/2018 SUBJECTIVE: Isabella is seen and examined this morning at the bedside. She went for angiogram with Dr. Stern earlier. She complained of being hungry since she was nothing by mouth for the procedure, otherwise denies any new complaints. Vital signs: Temperature 98.6, pulse 62, respiratory rate 19, blood pressure 164/73, saturating 95% on room air. Intake yesterday was 620, dialysis yesterday removed 3 liters, net negative 2680, weight in the bed scale today is 77.3 kg. General: Patient is seen lying in bed, awake, alert, oriented, comfortable, no acute distress. Extraocular muscles are intact. Tongue is moist. Neck is supple. There is a tunneled hemodialysis catheter with a dressing present in the right internal jugular (IJ). Cardiac: S1, S2, regular rate and rhythm. Lungs: Diminished breath sounds, anterior auscultation only. No crackle or rale. Abdomen is soft and nontender. There is some pitting edema present in the flanks. There is a right upper extremity fistula without thrill. The lower extremities show left [id number] amputation. Right foot wrapped with dressing. There is 1+ edema present in the peripheries. LABORATORY DATA: White count 4.7, hemoglobin 11.3, platelets 182, sodium 136, potassium 4.4, magnesium 1.8. INPATIENT MEDICATIONS: She received premedication for contrast with prednisone and Benadryl and she is now on oral Levaquin. Remainder of medications are unchanged from prior. PROBLEMS: 1. End-stage renal disease on hemodialysis on Monday, , Monday schedule. Patient is chronically noncompliant with dialysis, misses many treatments, is also noncompliant with fluid restriction and dietary restriction. She received an extra treatment in-house on Monday and she will be dialyzed again on . Her fistula is not patent and her Permacath remains in use. 2. Decompensated systolic and diastolic congestive heart failure. Ejection fraction 15%, grade 1 diastolic dysfunction. Noncompliant with dialysis and fluid restriction. We will do extra dialysis treatments in-house whenever the patient is agreeable for the same with a goal fluid removal of 3-4 liters with each dialysis treatment. I have advised her regarding fluid restriction. In terms of her heart failure, she also continues on her angiotensin receptor adeel and beta adeel and she is also on aspirin, statin, and Plavix for history of coronary artery disease and peripheral vascular disease. 3. Right foot wound. She is status post angiogram today and she is for wound debridement coming up. 4. Hypertension. Blood pressures are acceptable and no changes are being made to the current anti-hypertensives. 5. Anemia related to chronic renal failure and inflammation. Her hemoglobin is at goal and no changes are being made at present.
--- NOTE | 2018-05-18 16:42 | IPN ---
DATE: 05/17/2018 SUBJECTIVE: Isabella is seen and examined this morning at the bedside. She denies any acute new complaints. She is for possible debridement of the right foot wound tomorrow. She is scheduled for dialysis later this afternoon, however patient informs me this morning that she just feels like sleeping and will most likely refuse dialysis this afternoon. I advised her at length to go for her scheduled dialysis treatment. Vital signs: Temperature 96.8, pulse 62, respiratory rate 19, blood pressure 140/58, saturating 93% on room air. Intake yesterday 1020. Weight in the bed scale today is not recorded. General: Patient is seen lying in bed, awake, alert, oriented, no acute distress. Extraocular muscles are intact. Tongue is moist. There is a tunneled right internal jugular (IJ) Permacath with dressing. She appears older than stated age. Cardiovascular: S1, S2, regular rate and rhythm. Lungs: There is diminished breath sounds at the bases, otherwise clear. The abdomen is soft, obese, and nontender. The lower extremities show right foot with dressing and left [id number] amputation. There is 1+ pitting edema in the extremities. The arteriovenous (AV) fistula at the right upper extremity is not patent. She has excoriations on her arms. LABORATORY DATA: White count 8.4, hemoglobin 11.1, platelets 213, sodium 136, potassium 4.2, bicarbonate 24. INPATIENT MEDICATIONS: Reviewed by myself. Her insulin was adjusted per the primary team. Remainder of medications are unchanged from prior. PROBLEMS: 1. End-stage renal disease on hemodialysis on a Monday, , Monday schedule. Patient received an extra dialysis treatment this week due to her decompensated combined heart failure. Today is her usual day of dialysis but she is refusing to go this afternoon. I advised her at length to comply with the dialysis schedule. She has been chronically noncompliant in the past, has multiple missed dialysis sessions, and oftentimes refuses dialysis while in-house as well. Dialysis nurse will try again in the afternoon or evening to arrange dialysis for Isabella. 2. Systolic congestive heart failure, decompensated. Ejection fraction 15% on last echo also with diastolic dysfunction. She is noncompliant with dialysis. She is chronically fluid overloaded. She received an extra dialysis treatment this week. Goal fluid removal with each treatment is 3-4 liters as tolerated. She is counseled regarding fluid restriction and compliance with dialysis sessions. In view of her congestive heart failure she also continues on angiotensin receptor adeel and beta adeel. For her coronary artery disease she continues on aspirin, statin, and Plavix and she has significant peripheral vascular disease as well. 3. Anemia related to chronic renal failure. Her hemoglobin is at goal. Her iron stores show transferrin saturation of only 19%. We will continue her on weekly Aranesp and start Venofer with hemodialysis treatment. 4. Hypertension. Blood pressures are acceptable and no changes are being made to her current regimen. She continues on metoprolol, candesartan, and hydralazine. 5. Right foot chronic wound with peripheral vascular disease. She had an angiogram yesterday. She is for possible wound debridement tomorrow with vascular surgery.
[2018-05-18] MEDS: LevoFLOXacin 250 MG TABLET PO SCH (18:00)
--- NOTE | 2018-05-18 18:08 | IPNPDOC ---
Text Note Date of Service The patient was seen on 05/18/18. NOTE SUBJECTIVE: Patient is seen and examined in the room today after her dialysis. Patient complains about right lower extremity discomfort. Denies fever or chill. OBJECTIVE: VITAL SIGNS: Listed below. GENERAL: No distress. Alert and awake. HEENT: Normocephalic, atraumatic. Extraocular movements grossly intact. CARDIOVASCULAR: Positive S1, S2, regular rate. LUNGS: Diminished breath sounds. No significant wheeze is appreciated. ABDOMEN: Soft, nontender, nondistended. MSK: Dialysis catheter located at right upper chest. AV fistula at right upper extremity. Right foot is wrapped with dressing. Left below the knee amputation (BKA). LABORATORY DATA: Listed below. ASSESSMENT AND PLAN: # Right foot wound. - Vascular surgery consulted. Angiogram of lower extremity on 05/16/18. Possible wound debridement on 05/19/18. #. Decompensated systolic diastolic congestive heart failure. - Echocardiogram was done on October 2017. Ejection fraction (EF) 15%, grade 1 diastolic dysfunction. - Patient has a history of noncompliance. Patient has missed multiple dialysis sessions prior to admission. Currently case specialist is assisting on the dialysis and fluid management. Appreciate their assistance. #. End-stage renal disease - Nephrology consulted. Hemodialysis through dialysis catheter. - Right arm AV fistula is not ready. Discussed with vascular surgery. Continue outpatient followup. #. Patchy infiltrate or atelectasis on imaging study. - Respiratory panel is negative. Patient finished course of antibiotic. #. Hypertension. - On hydralazine, metoprolol. #. Diabetes. - Levemir. On sliding scale. #. Coronary artery disease, status post stent. - Aspirin, Lipitor and Plavix. #. COPD. - Continue as needed nebulizers. No sign of exacerbation. #. Medical noncompliance. Complicating patient's care. #. Deep venous thrombosis (DVT) prophylaxis. On heparin. VS,Fishbone, I+O VS, Fishbone, I+O Laboratory Tests 05/18/18 07:52 Red Blood Count 4.04, Mean Corpuscular Volume 86.9, Mean Corpuscular Hemoglobin 26.5 L, Mean Corpuscular Hemoglobin Concent 30.5 L, Red Cell Distribution Width 21.5 H, Calcium Level 6.7 L Vital Signs Date Time Temp Pulse Resp B/P (MAP) Pulse Ox O2 Delivery O2 Flow Rate FiO2 05/18/18 14:54 148/64 05/18/18 14:15 96.9 59 19 94 05/12/18 18:42 Room Air I&O- Last 24 Hours up to 6 AM 05/18/18 06:00 Intake Total 270 ml Output Total 0 ml Balance 270 ml WILIAM JOHNS DO May 18, 2018 18:08
[2018-05-18] MEDS: CALCIUM CARBONATE 500 MG CHEW U/D PO SCH (21:40)
[2018-05-18] MEDS: ATORVASTATIN 20 MG TAB PO SCH (21:41)
[2018-05-18 22:00] VITALS: BP 148/62
[2018-05-18] MEDS: BISACODYL 5 MG TAB PO PRN (22:43)
[2018-05-19 06:00] VITALS: BP 140/60
[2018-05-19 06:00] LABS: HEMATOCRIT 34.2 % (36.0-47.0); HEMOGLOBIN 10.5 g/dl (12.0-15.5); MEAN CORPUSCULAR HEMOGLOBIN 26.6 pg (27.0-33.0); MEAN CORPUSCULAR HGB CONC 30.7 g/dl (32.0-36.5); MEAN CORPUSCULAR VOLUME 86.8 fl (80.0-96.0); PLATELET COUNT, AUTOMATED 202 10^3/uL (150-450); RED BLOOD COUNT 3.94 10^6/uL (4.00-5.40); WHITE BLOOD COUNT 6.3 10^3/uL (4.0-10.0)
[2018-05-19] MEDS: METOPROLOL TART 50 MG TAB PO SCH ×2 (06:20→21:55)
[2018-05-19] MEDS: ALPRAZolam 0.5 MG TAB PO SCH ×3 (06:20→21:55)
[2018-05-19] MEDS: FAMOTIDINE 20 MG TAB PO SCH (06:21)
[2018-05-19] MEDS: CALCIUM ACETATE 667 MG GELCAP PO SCH ×3 (06:21→17:30)
[2018-05-19] MEDS: CANDESARTAN 4MG TABLET PO SCH (06:21)
[2018-05-19] MEDS: SERTRALINE 100 MG TAB PO SCH (06:21)
[2018-05-19] MEDS: **hydrALAZINE** 10 MG TAB PO SCH ×3 (06:22→21:55)
[2018-05-19] MEDS: CLOPIDOGREL 75 MG TAB PO SCH (06:22)
[2018-05-19] MEDS: NORCO, ANEXSIA 5/325MG TABLET (HYDROcodone/ACETAMINOPHEN) PO PRN ×3 (06:23→21:54)
[2018-05-19] MEDS: HEPARIN SOD (PORCINE) 5000 UNITS/ML VIAL SC SCH ×3 (06:23→22:54)
[2018-05-19] MEDS: ASPIRIN 81 MG ENTERIC TAB PO SCH (06:24)
[2018-05-19 06:42] LABS: CREATININE FOR GFR 3.51 MG/DL (0.55-1.30); GLOMERULAR FILTRATION RATE 14.3 (>51); MAGNESIUM LEVEL 1.6 MG/DL (1.8-2.4); POTASSIUM SERUM 5.2 MEQ/L (3.5-5.1)
[2018-05-19] MEDS: MAGNESIUM OXIDE 400 MG TAB (MAG-OX) PO SCH ×2 (08:20→21:55)
[2018-05-19] MEDS: FLUTICASONE PROP 0.05% NASAL SPRAY 16 GM (FLONASE) SCH ×3 (08:22→21:58)
[2018-05-19] MEDS: SYMBICORT 80/4.5MCG INHALER 6GM INH SCH ×2 (08:22→20:07)
[2018-05-19] MEDS: NYSTATIN 100,000 UNITS/GM TOPICAL PWD 15 GM TOP SCH ×2 (08:22→21:00)
[2018-05-19] MEDS: HumaLOG INSULIN (NovoLOG) PER UNIT SC SCH ×4 (08:24→21:00)
[2018-05-19] MEDS: LEVEMIR (INSULIN DETEMIR) 1 UNITS/0.01ML SC SCH (08:25)
[2018-05-19] MEDS: SANTYL OINT 30GM TOP SCH (09:00)
[2018-05-19] MEDS ORDERED: HEPARIN 1,000 UNITS/ML 10ML VIAL (FOR RADIOLOGY& DIALYSIS ONLY) XX ONE (11:00)
[2018-05-19] MEDS ORDERED: HEPARIN 1,000 UNITS/ML 10ML VIAL (FOR RADIOLOGY& DIALYSIS ONLY) IV ONE (11:00)
--- NOTE | 2018-05-19 14:17 | IPN ---
DATE: 05/19/2018 Mrs. Ibarra is seen this morning on her bedside. She is sitting in the chair and is somewhat upset as she has been n.p.o. and feels hungry. She is scheduled for debridement of her foot wound later today by Dr. Stern. She is also due for dialysis as she had missed her dialysis on and did have it yesterday. She denies any dyspnea, chest pain, nausea or vomiting. She does have significant lower extremity edema. PHYSICAL EXAMINATION: Temperature 98.0 degrees Fahrenheit, heart rate 64 per minute and respiratory rate 18 per minute. Blood pressure 140/64 mmHg and oxygen saturation 96% on room air. Head is atraumatic. Neck is supple and JVD is elevated even sitting upright in the chair. She has no oral thrush or ulcers. Heart sounds are regular and lungs with slightly diminished breath sounds at bases and few basilar rales. Abdomen soft and nontender and bowel sounds are present. Extremities have no cyanosis or clubbing. Lower extremity edema is significant. She has a prior left [id number] amputation. Her right foot is wrapped in dressing. Neurologically she is at her baseline mentation without a focal deficit. Today's labs show WBC count 6.3, hemoglobin 10.5 and hematocrit 34.2. Platelets 202. Sodium 133, potassium 5.2, CO2 24, BUN 50 and creatinine 3.51. Glucose 463 and calcium 7.0. PROBLEMS: 1. End-stage renal disease. The patient is regularly dialyzed on Monday, and Monday schedule. Today is her regular dialysis day and she will be dialyzed this afternoon. She missed her dialysis on and had it done yesterday. The patient understands that she is willing to go for dialysis at noon. 2. Generalized edema and hypervolemia. This is a chronic issue related to noncompliance with dietary and fluid restrictions. We have been trying to remove 3-4 liters of fluid with each dialysis. Unfortunately, she has not been following her fluid restriction. We will try to remove another 3-4 liters today and see how she does. 3. Hyperkalemia. She does have mild hyperkalemia which will be corrected with dialysis and no other intervention will be needed. Most likely this is related to hyperglycemia and is likely to resolve by itself as her blood sugar has improved. 4. Anemia. Her anemia has been stable and will continue to monitor closely. She gets Aranesp 100 mcg once a week which will be continued. 5. Nonhealing wound on right foot. The patient is scheduled for wound debridement later today. She has significant lower extremity edema and understands that it will improve only if she follows fluid restriction.
[2018-05-19] MEDS ORDERED: MIDAZOLAM INJ 2 MG/2 ML VIAL (J2250) As Ordered ONE (14:45)
[2018-05-19] MEDS ORDERED: fentaNYL 100 MCG/2 ML INJECTION (J3010) As Ordered ONE (14:46)
--- NOTE | 2018-05-19 14:46 | IPNPDOC ---
Text Note Date of Service The patient was seen on 05/19/18. NOTE SUBJECTIVE: Patient is seen and examined in the room today. Denies fever or chill. Patient has been NPO for wound debridement. OBJECTIVE: VITAL SIGNS: Listed below. GENERAL: No distress. Alert and awake. HEENT: Normocephalic, atraumatic. Extraocular movements grossly intact. CARDIOVASCULAR: Positive S1, S2, regular rate. LUNGS: Diminished breath sounds. No significant wheeze is appreciated. ABDOMEN: Soft, nontender, nondistended. MSK: Dialysis catheter located at right upper chest. AV fistula at right upper extremity. Right foot is wrapped with dressing. Left below the knee amputation (BKA). LABORATORY DATA: Listed below. ASSESSMENT AND PLAN: # Right foot wound. - Vascular surgery consulted. Angiogram of lower extremity on 05/16/18. Possible wound debridement on 05/19/18. Patient is NPO. #. End-stage renal disease - Nephrology consulted. Hemodialysis through dialysis catheter. - Right arm AV fistula is not ready. Discussed with vascular surgery. Continue outpatient followup. #. Decompensated systolic diastolic congestive heart failure. - Echocardiogram was done on October 2017. Ejection fraction (EF) 15%, grade 1 diastolic dysfunction. - Patient has a history of noncompliance. Currently mobile equipment servicer is assisting on the dialysis and fluid management. Appreciate their assistance. #. Patchy infiltrate or atelectasis on imaging study. - Respiratory panel is negative. Patient finished course of antibiotic. #. Hypertension. - On hydralazine, metoprolol. #. Diabetes. - Levemir. On sliding scale. #. Coronary artery disease, status post stent. - Aspirin, Lipitor and Plavix. #. COPD. - Continue as needed nebulizers. No sign of exacerbation. #. Medical noncompliance. Complicating patient's care. #. Deep venous thrombosis (DVT) prophylaxis. On heparin. VS,Fishbone, I+O VS, Fishbone, I+O Laboratory Tests 05/19/18 05:50 Red Blood Count 3.94 L, Mean Corpuscular Volume 86.8, Mean Corpuscular Hemoglobin 26.6 L, Mean Corpuscular Hemoglobin Concent 30.7 L, Red Cell Distribution Width 21.7 H, Calcium Level 7.0 L Vital Signs Date Time Temp Pulse Resp B/P (MAP) Pulse Ox O2 Delivery O2 Flow Rate FiO2 05/19/18 06:23 19 05/19/18 06:20 64 140/64 05/19/18 06:00 98.0 96 I&O- Last 24 Hours up to 6 AM 05/19/18 06:00 Intake Total 1080 ml Output Total 3000 ml Balance -1920 ml WILIAM JOHNS DO May 19, 2018 14:46
[2018-05-19] MEDS ORDERED: PROPOFOL 200 MG/20 ML VIAL As Ordered ONE (14:47)
[2018-05-19] MEDS ORDERED: LIDOCAINE 2% INJ 100 MG/5 ML SDV (FOR ANES.) As Ordered ONE (14:48)
[2018-05-19] MEDS ORDERED: D5W/0.45% SODIUM CHLORIDE 1,000 ML IV SCH (16:30)
[2018-05-19] MEDS ORDERED: fentaNYL 100 MCG/2 ML INJECTION (J3010) IV PRN (16:30)
--- NOTE | 2018-05-19 19:22 | ROOPDOC ---
[facility] Report Of Operation Report of Operation DATE OF PROCEDURE: 05/19/2018 PREOPERATIVE DIAGNOSES: Nonhealing right transmetatarsal amputation wound Diabetes mellitus End-stage renal disease Right iliofemoral, femoral popliteal and tibio-peroneal arterial atherosclerotic occlusive disease POSTOPERATIVE DIAGNOSES: Nonhealing right transmetatarsal amputation wound Diabetes mellitus End-stage renal disease Right iliofemoral, femoral popliteal and tibio-peroneal arterial atherosclerotic occlusive disease WOUND DESCRIPTION: The wound is along the transmetatarsal amputation incision line and measures approximately 6 cm in medial lateral orientation 2 cm anterior posterior orientation and is approximately 0.5 cm in depth. PROCEDURE: Right transmetatarsal amputation wound excisional debridement with removal of skin subcutaneous tissue and muscle. SURGEON: Dr. Royce Stern M.D. HR SPECIALIST: None INDICATION: Patient is a 58-year-old female with history of end-stage renal disease, diabetes mellitus and severe atherosclerotic arterial occlusive disease in her right lower extremity who developed ischemia and gangrene of the toes and underwent angioplasty and stenting of her right superficial femoral and popliteal arteries with improved blood flow but required amputation of the forefoot and underwent a right transmetatarsal amputation. The patient's incision is nonhealing and the wound has nonviable skin scalp subcutaneous tissue and muscle as well as fibrinous exudate at the base of the wound. Patient recently underwent repeat angioplasty of her previously stented right superficial femoral and popliteal arteries as well as her right common femoral artery with improved blood flow to the right lower extremity. Patient will now undergo excisional debridement of her right transmetatarsal amputation wound. The procedure was explained and described to the patient in detail including drawing of pictures demonstrating the procedure pertinent anatomy. Risks, benefits and alternative treatment options were discussed with the patient. Benefits included but were not limited to removal of nonviable tissue to reduce infection, aid in healing and prevent loss of limb or life. Alternative treatment options included but were not limited to no intervention with continued conservative management. Risks included but were not limited to infection, bleeding, renal failure requiring hemodialysis, possible need for further open surgical intervention, increased wound size, increased wound pain, hematoma formation, scarring, bruising, possible need for transfusion of blood products, complication and/or allergic reaction from the prepping and draping materials, complication and/or allergic reaction to the anesthetic medications, increased size or worsening of the wound, cerebrovascular accident, myocardial infarction, pulmonary embolus, deep venous thrombosis, loss of limb, loss of l srikanth, poor satisfaction, poor results and poor outcome. Risks of not performing the procedure included but were not limited to infection, worsening wound size or depth, loss of limb and loss of life. All of the patient's questions were answered. Patient voices understanding and acceptance of these risks, benefits and alternative treatment options and consents to proceed with excisional debridement of the right transmetatarsal amputation wound. No promises or guarantees were made to the patient regarding the results or outcome of the procedure. ANESTHESIA: Mac. ESTIMATED BLOOD LOSS: 15 mL. IV FLUIDS: 50 mL's HEPARIN: None PROTAMINE: None COMPLICATIONS: None. DRAINS: None SPECIMENS: None IMPLANTS: None PROCEDURE: Patient was taken to the operating room, placed supine on the operating room table and the patient was prepped and draped in a standard surgical fashion. A surgical time out confirming the correct patient, procedure and laterality was then performed by myself and the team members within the operating room. Excisional debridement was then performed with pickups and a scalpel with excision of all nonviable skin subcutaneous tissue and muscle down to healthy bleeding tissue. The wound base was debrided sharply with removal of fibrinous exudate down to healthy bleeding tissue. There was no bone exposed. The wound was then irrigated with Vashe solution. Dressings were then applied. All instruments sponge and needle counts were correct at the end of the case. There were no complications. Dr. Stern was present for and directed the entire case. Patient was transferred to the recovery room awake, alert, extubated and in stable condition. The results of the procedure were explained and described to the patient in the recovery room with all of her questions being answered. Jono Stern MD May 19, 2018 19:22
[2018-05-19 20:00] VITALS: BP 126/59
[2018-05-19 21:00] VITALS: BP 138/60
[2018-05-19] MEDS: CALCIUM CARBONATE 500 MG CHEW U/D PO SCH (21:53)
[2018-05-19] MEDS: ATORVASTATIN 20 MG TAB PO SCH (21:55)
[2018-05-19 22:00] VITALS: BP 130/58
[2018-05-19] MEDS: IPRATROPIUM 0.5MG/ALBUTEROL 2.5MG INH SOL UD 3ML (DUONEB)(J7620) NEB PRN (23:55)
[2018-05-20 02:00] VITALS: BP 145/70
[2018-05-20] MEDS: NORCO, ANEXSIA 5/325MG TABLET (HYDROcodone/ACETAMINOPHEN) PO PRN ×2 (03:03→21:51)
[2018-05-20] MEDS: LEVEMIR (INSULIN DETEMIR) 1 UNITS/0.01ML SC SCH (04:56)
[2018-05-20] MEDS: HEPARIN SOD (PORCINE) 5000 UNITS/ML VIAL SC SCH ×3 (05:00→21:43)
[2018-05-20 06:00] VITALS: BP 165/80
[2018-05-20 06:38] LABS: HEMATOCRIT 34.2 % (36.0-47.0); HEMOGLOBIN 10.5 g/dl (12.0-15.5); MEAN CORPUSCULAR HEMOGLOBIN 26.8 pg (27.0-33.0); MEAN CORPUSCULAR HGB CONC 30.7 g/dl (32.0-36.5); MEAN CORPUSCULAR VOLUME 87.2 fl (80.0-96.0); PLATELET COUNT, AUTOMATED 188 10^3/uL (150-450); RED BLOOD COUNT 3.92 10^6/uL (4.00-5.40); WHITE BLOOD COUNT 6.4 10^3/uL (4.0-10.0)
[2018-05-20 07:15] LABS: CALCIUM LEVEL 7.1 MG/DL (8.5-10.1); CREATININE FOR GFR 3.77 MG/DL (0.55-1.30); GLOMERULAR FILTRATION RATE 13.2 (>51); MAGNESIUM LEVEL 1.9 MG/DL (1.8-2.4)
[2018-05-20] MEDS: CANDESARTAN 4MG TABLET PO SCH (07:56)
[2018-05-20] MEDS: FAMOTIDINE 20 MG TAB PO SCH (07:57)
[2018-05-20] MEDS: CLOPIDOGREL 75 MG TAB PO SCH (07:57)
[2018-05-20] MEDS: MAGNESIUM OXIDE 400 MG TAB (MAG-OX) PO SCH ×2 (07:57→21:42)
[2018-05-20] MEDS: ALPRAZolam 0.5 MG TAB PO SCH ×3 (07:58→21:41)
[2018-05-20] MEDS: SERTRALINE 100 MG TAB PO SCH (07:58)
[2018-05-20] MEDS: ASPIRIN 81 MG ENTERIC TAB PO SCH (07:58)
[2018-05-20] MEDS: CALCIUM ACETATE 667 MG GELCAP PO SCH ×3 (08:00→18:00)
[2018-05-20] MEDS: METOPROLOL TART 50 MG TAB PO SCH ×2 (08:00→21:42)
[2018-05-20] MEDS: **hydrALAZINE** 10 MG TAB PO SCH ×3 (08:01→21:41)
[2018-05-20] MEDS: NYSTATIN 100,000 UNITS/GM TOPICAL PWD 15 GM TOP SCH ×2 (08:01→21:43)
[2018-05-20] MEDS: FLUTICASONE PROP 0.05% NASAL SPRAY 16 GM (FLONASE) SCH ×3 (08:02→21:44)
[2018-05-20] MEDS: SYMBICORT 80/4.5MCG INHALER 6GM INH SCH ×2 (08:02→20:01)
[2018-05-20] MEDS: SANTYL OINT 30GM TOP SCH (08:03)
[2018-05-20] MEDS: HumaLOG INSULIN (NovoLOG) PER UNIT SC SCH ×4 (08:04→21:00)
[2018-05-20 10:00] VITALS: BP 151/64
--- NOTE | 2018-05-20 12:54 | REP ---
CT MAXILLOFACIAL WITHOUT CONTRAST: 05/20/2018. TECHNIQUE: Axial soft-tissue and bone windows were obtained with both coronal and sagittal reconstructions provided in bone window settings. FINDINGS: No prior study. The nasal septum is deviated towards the left side. The ethmoid, frontal, and sphenoid sinuses are clear. The maxillary sinuses show minor mucosal thickening near the OMC on the left but no air-fluid level or other areas of thickened mucosa. The infundibulum shows mild stenosis on the left due to mucosal thickening, but it is patent on the right. The ostium and infundibulum are intact. Hiatus semilunaris preserved. There is no contra bullosa, and the middle turbinates are grossly intact. Nasal air passages are preserved. The nasal bones and the nasal spine of the maxilla are intact. Zygomatic arches are preserved. The medial orbital rick, orbital struts, and floors all intact. Fat anterior to the masseter muscles on both sides is symmetric, has lower CT attenuation values than other subcutaneous fat about the submandibular and malar regions. Suggests a slightly different character of the fat. It has subtle edges that may reflect margins. The bony mandible shows no acute finding. There is some missing dentition. The maxilla is edentulous. There are some degenerative changes at the articulation of the dens with anterior arch of C1. Visible cervical vertebral levels otherwise intact. The mastoids are symmetric and without opacification to suggest mastoiditis. The internal auditory canals and semicircular canals are unremarkable. There is no opacification of the middle ear. Bony ossicles are grossly symmetric. There is no opacification of Prussak space. The bony scutum is sharply defined. The nasopharynx, oropharynx, and visualized hypopharynx intact. Tongue base grossly intact. Visualized parotid and submandibular glands are unremarkable. No pathologic-sized adenopathy visible in the neck. IMPRESSION: 1. There is no acute or chronic sinusitis. No air-fluid levels, mucosal thickening, or destructive lesions in the sinuses. 2. There is trace mucosal thickening at the OMC on the left with narrowed ostium and infundibulum, but no occlusion. The right OMC and infundibulum are normal. 3. Mastoids, IACs, and semicircular canals grossly intact. No gross abnormality of the middle ears. Bony skull base intact. 4. Slight deviation nasal septum towards the left. Electronically Signed by Jai Matson MD 05/20/2018 07:06 P
[2018-05-20 14:00] VITALS: BP 151/64
--- NOTE | 2018-05-20 14:24 | IPN ---
DATE: 05/18/2018 SUBJECTIVE: Isabella is seen and examined today in the hemodialysis unit receiving her maintenance treatment. She refused dialysis yesterday but was agreeable be dialyzed today. Goal fluid removal is 3 liters. She has no new complaints apart from her chronic right foot pain. Temperature 98.0, pulse 58, respiratory rate 17, blood pressure 130/72, saturating 97 on room air. Intake yesterday was not fully recorded. Neither was her output. Dialysis today removed 3 liters. Weight on the bed scale today is not recorded. General: Patient is seen in the dialysis unit receiving her maintenance treatment, awake, alert and oriented, in no acute distress. Appears older than stated age. Extraocular muscles are intact. Tongue is moist. Neck is supple. Jugular veins are elevated. There is a tunneled hemodialysis catheter present in the right chest wall which is in use. Cardiac: S1 and S2, regular rate and rhythm. Lungs: Show diminished breath sounds at the bases. No wheeze or rhonchus. Abdomen is soft and nontender. There is some pitting edema present in the flanks. The right upper extremity fistula is not patent. The right foot is wrapped in dressings. There is a left below knee amputation. There is 1+ peripheral edema. LABS: White count 7.0, hemoglobin 10.7, platelets 190, sodium 137, potassium 5.5, bicarbonate 23. INPATIENT MEDICATIONS: Reviewed by myself. She is started on Venofer with dialysis for five doses. Her insulin was adjusted per the primary team. Remainder of medications are unchanged from prior. PROBLEMS: 1. End-stage renal disease on hemodialysis on a Monday, , Monday schedule. Patient refused her dialysis treatment yesterday. She is chronically noncompliant with dialysis in the outpatient setting and often times refuses treatment while . She is being dialyzed today, goal fluid removal will be 3 liters. We will dialyze her again tomorrow if she is agreeable as well. 2. Systolic congestive heart failure, decompensated. Ejection fraction 15%, also concomitant diastolic dysfunction. She is chronically noncompliant with dialysis and fluid restriction and is chronically fluid overloaded. She refused dialysis yesterday. She is being dialyzed today with 3 liters removal as goal. I will hope to dialyze her again tomorrow if she is agreeaable. In terms of her congestive heart failure (CHF) and coronary artery disease, she continues candesartan and beta-adeel, aspirin, statin and Plavix. 3. Anemia related to chronic renal failure. Hemoglobin is at goal. Her transferrin saturation was only 19%. We will continue her on weekly Aranesp and I have ordered five doses of Venofer with hemodialysis treatment. 4. Hypertension. Blood pressures are acceptable and no changes are being made to her current regimen at present. She continues on metoprolol, candesartan, and hydralazine. 5. Hyperkalemia due to skipping her dialysis treatment yesterday. She is being dialyzed today. 6. Right foot chronic wound with peripheral vascular disease. She had an angiogram with vascular surgery and she is pending wound debridement as well and she is continued on aspirin, statin and Plavix.
--- NOTE | 2018-05-20 16:42 | IPNPDOC ---
Text Note Date of Service The patient was seen on 05/20/18. NOTE SUBJECTIVE: Patient is seen and examined in the room today. Patient is complaining about sore throat, sinus pain and left ear pain. Denies nasal congestion. Denies fever or chill. Patient states her granddaughter had RSV and strep throat infection. OBJECTIVE: VITAL SIGNS: Listed below. GENERAL: fatigue. No distress. Alert and awake. HEENT: Normocephalic, atraumatic. Extraocular movements grossly intact. CARDIOVASCULAR: Positive S1, S2, regular rate. LUNGS: Diminished breath sounds. No significant wheeze is appreciated. ABDOMEN: Soft, nontender, nondistended. MSK: Dialysis catheter located at right upper chest. AV fistula at right upper extremity. Right foot is wrapped with dressing. Left below the knee amputation (BKA). LABORATORY DATA: Listed below. ASSESSMENT AND PLAN: # Sore throat - Strep screening. CT maxillofacial ordered. #. End-stage renal disease - Nephrology consulted. Hemodialysis through dialysis catheter. - Right arm AV fistula is not ready. Discussed with vascular surgery. Continue outpatient followup. # Right foot wound. - Vascular surgery consulted. Angiogram of lower extremity on 05/16/18. Wound debridement on 05/19/18. #. Decompensated systolic diastolic congestive heart failure. - Echocardiogram was done on October 2017. Ejection fraction (EF) 15%, grade 1 diastolic dysfunction. - Patient has a history of noncompliance. Currently educational technology coordinator is assisting on the dialysis and fluid management. Appreciate their assistance. #. Patchy infiltrate or atelectasis on imaging study. - Respiratory panel is negative. Patient finished course of antibiotic. #. Hypertension. - On hydralazine, metoprolol. #. Diabetes. - Levemir. On sliding scale. #. Coronary artery disease, status post stent. - Aspirin, Lipitor and Plavix. #. COPD. - Continue as needed nebulizers. No sign of exacerbation. #. Medical noncompliance. Complicating patient's care. #. Deep venous thrombosis (DVT) prophylaxis. On heparin. VS,Fishbone, I+O VS,Fishbone, I+O VS, Fishbone, I+O Laboratory Tests 05/20/18 06:01 Red Blood Count 3.92 L, Mean Corpuscular Volume 87.2, Mean Corpuscular Hemoglobin 26.8 L, Mean Corpuscular Hemoglobin Concent 30.7 L, Red Cell Distribution Width 22.1 H, Calcium Level 7.1 L Vital Signs Date Time Temp Pulse Resp B/P (MAP) Pulse Ox O2 Delivery O2 Flow Rate FiO2 05/20/18 14:00 98.6 66 18 151/64 (93) 95 05/19/18 16:10 Room Air I&O- Last 24 Hours up to 6 AM 05/20/18 06:00 Intake Total 1720 ml Output Total 3016 ml Balance -1296 ml WILIAM JOHNS DO May 20, 2018 16:42
[2018-05-20 18:16] LABS: BASO % 0.4 % (0.0-1.0); EOS # 0.1 10^3/uL (0.0-0.50); EOS % 1.8 % (0.0-3.0); HEMATOCRIT 34.2 % (36.0-47.0); HEMOGLOBIN 10.5 g/dl (12.0-15.5); LYMPH # 0.9 10^3/uL (1.5-4.5); LYMPH % 11.9 % (24.0-44.0); MEAN CORPUSCULAR HEMOGLOBIN 26.6 pg (27.0-33.0); MEAN CORPUSCULAR HGB CONC 30.7 g/dl (32.0-36.5); MEAN CORPUSCULAR VOLUME 86.6 fl (80.0-96.0); MONO # 0.9 10^3/uL (0.0-0.8); MONO % 12.9 % (0.0-5.0); NEUTROPHILS # 5.1 10^3/uL (1.8-7.7); NEUTROPHILS % 72.3 % (36.0-66.0); PLATELET COUNT, AUTOMATED 186 10^3/uL (150-450); RED BLOOD COUNT 3.95 10^6/uL (4.00-5.40); WHITE BLOOD COUNT 7.1 10^3/uL (4.0-10.0)
[2018-05-20 18:29] LABS: ALBUMIN 2.5 GM/DL (3.2-5.2); BILIRUBIN,TOTAL 0.4 MG/DL (0.2-1.0); CALCIUM LEVEL 7.2 MG/DL (8.5-10.1); CREATININE FOR GFR 4.01 MG/DL (0.55-1.30); GLOMERULAR FILTRATION RATE 12.3 (>51); MB/CK RELATIVE INDEX 7.91 (< OR =4); POTASSIUM SERUM 4.9 MEQ/L (3.5-5.1); TOTAL PROTEIN 5.9 GM/DL (6.4-8.2); TROPONIN I 0.04 NG/ML (< 0.10)
[2018-05-20] MEDS: CALCIUM CARBONATE 500 MG CHEW U/D PO SCH (21:42)
[2018-05-20] MEDS: ATORVASTATIN 20 MG TAB PO SCH (21:42)
[2018-05-20] MEDS: BISACODYL 5 MG TAB PO PRN (21:50)
[2018-05-20 22:00] VITALS: BP 162/74
[2018-05-20] MEDS: ONDANSETRON 4 MG TAB (S0181) PO PRN (22:22)
[2018-05-21] MEDS: HEPARIN SOD (PORCINE) 5000 UNITS/ML VIAL SC SCH ×3 (05:13→21:00)
[2018-05-21] MEDS: NORCO, ANEXSIA 5/325MG TABLET (HYDROcodone/ACETAMINOPHEN) PO PRN ×3 (05:18→18:03)
[2018-05-21 06:00] VITALS: BP 129/61
[2018-05-21 06:26] LABS: HEMATOCRIT 35.1 % (36.0-47.0); HEMOGLOBIN 10.7 g/dl (12.0-15.5); MEAN CORPUSCULAR HEMOGLOBIN 26.5 pg (27.0-33.0); MEAN CORPUSCULAR HGB CONC 30.5 g/dl (32.0-36.5); MEAN CORPUSCULAR VOLUME 86.9 fl (80.0-96.0); PLATELET COUNT, AUTOMATED 186 10^3/uL (150-450); RED BLOOD COUNT 4.04 10^6/uL (4.00-5.40); WHITE BLOOD COUNT 5.5 10^3/uL (4.0-10.0)
[2018-05-21 06:54] LABS: CALCIUM LEVEL 7.7 MG/DL (8.5-10.1); CREATININE FOR GFR 4.42 MG/DL (0.55-1.30); GLOMERULAR FILTRATION RATE 10.9 (>51); POTASSIUM SERUM 5.7 MEQ/L (3.5-5.1)
[2018-05-21] MEDS: SYMBICORT 80/4.5MCG INHALER 6GM INH SCH ×2 (07:22→18:28)
[2018-05-21] MEDS: CALCIUM ACETATE 667 MG GELCAP PO SCH ×4 (08:00→17:57)
[2018-05-21] MEDS: HumaLOG INSULIN (NovoLOG) PER UNIT SC SCH ×4 (08:37→21:00)
[2018-05-21] MEDS: CANDESARTAN 4MG TABLET PO SCH (08:39)
[2018-05-21] MEDS: LEVEMIR (INSULIN DETEMIR) 1 UNITS/0.01ML SC SCH (08:39)
[2018-05-21] MEDS: CLOPIDOGREL 75 MG TAB PO SCH (08:39)
[2018-05-21] MEDS: ALPRAZolam 0.5 MG TAB PO SCH ×3 (08:42→20:49)
[2018-05-21] MEDS: METOPROLOL TART 50 MG TAB PO SCH ×2 (08:42→20:50)
[2018-05-21] MEDS: SERTRALINE 100 MG TAB PO SCH (08:43)
[2018-05-21] MEDS: ASPIRIN 81 MG ENTERIC TAB PO SCH (08:43)
[2018-05-21] MEDS: MAGNESIUM OXIDE 400 MG TAB (MAG-OX) PO SCH ×2 (08:43→20:51)
[2018-05-21] MEDS: **hydrALAZINE** 10 MG TAB PO SCH ×3 (08:43→20:50)
[2018-05-21] MEDS: FLUTICASONE PROP 0.05% NASAL SPRAY 16 GM (FLONASE) SCH ×3 (08:44→20:51)
[2018-05-21] MEDS: NYSTATIN 100,000 UNITS/GM TOPICAL PWD 15 GM TOP SCH ×2 (08:44→20:51)
[2018-05-21] MEDS: FAMOTIDINE 20 MG TAB PO SCH (08:45)
[2018-05-21] MEDS: SANTYL OINT 30GM TOP SCH (08:45)
--- NOTE | 2018-05-21 10:08 | ECGEPIP ---
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 Electronically Signed On 05-21-2018 10:08:37 EST by Kamran Viveros
[2018-05-21] MEDS ORDERED: HEPARIN 1,000 UNITS/ML 10ML VIAL (FOR RADIOLOGY& DIALYSIS ONLY) IV ONE (10:45)
[2018-05-21] MEDS ORDERED: HEPARIN 1,000 UNITS/ML 10ML VIAL (FOR RADIOLOGY& DIALYSIS ONLY) XX ONE (10:45)
--- NOTE | 2018-05-21 15:17 | IPNPDOC ---
Text Note Date of Service The patient was seen on 05/21/18. NOTE SUBJECTIVE: Patient is seen today. Patient complains about left chest discomfort yesterday night. Painful with direct palpation. OBJECTIVE: VITAL SIGNS: Listed below. Physical examination: Patient refused physical examination today. LABORATORY DATA: Listed below. ASSESSMENT AND PLAN: #. End-stage renal disease - Nephrology consulted. Hemodialysis through dialysis catheter. - Right arm AV fistula is not ready. Discussed with vascular surgery. Continue outpatient followup. # Chest discomfort - Negative troponin. EKG reviewed. pain is reproducible with direct pressure. Suspect musculoskeletal origin. # Right foot wound. - Vascular surgery consulted. Angiogram of lower extremity on 05/16/18. Wound debridement on 05/19/18. #. Decompensated systolic diastolic congestive heart failure. - Echocardiogram was done on October 2017. Ejection fraction (EF) 15%, grade 1 di astolic dysfunction. - Patient has a history of noncompliance. Currently debug technician is assisting on the dialysis and fluid management. Appreciate their assistance. #. Patchy infiltrate or atelectasis on imaging study. - Respiratory panel is negative. Patient finished course of antibiotic. #. Hypertension. - On hydralazine, metoprolol. #. Diabetes. - Levemir. On sliding scale. #. Coronary artery disease, status post stent. - Aspirin, Lipitor and Plavix. #. COPD. - Continue as needed nebulizers. No sign of exacerbation. #. Medical noncompliance. Complicating patient's care. #. Deep venous thrombosis (DVT) prophylaxis. On heparin. VS,Fishbone, I+O VS, Fishbone, I+O Laboratory Tests 05/20/18 17:54 Red Blood Count 3.95 L, Mean Corpuscular Volume 86.6, Mean Corpuscular Hemoglobin 26.6 L, Mean Corpuscular Hemoglobin Concent 30.7 L, Red Cell Distribution Width 22.0 H, Neutrophils (%) (Auto) 72.3 H, Lymphocytes (%) (Auto) 11.9 L, Monocytes (%) (Auto) 12.9 H, Eosinophils (%) (Auto) 1.8, Basophils (%) (Auto) 0.4, Neutrophils # (Auto) 5.1, Lymphocytes # (Auto) 0.9 L, Monocytes # (Auto) 0.9 H, Eosinophils # (Auto) 0.1, Basophils # (Auto) 0.0, Calcium Level 7.2 L, Aspartate Amino Transf (AST/SGOT) 46 H, Alanine Aminotransferase (ALT/SGPT) 55, Total Creatine Kinase 43, Alkaline Phosphatase 375 H, Total Bilirubin 0.4, Total Protein 5.9 L, Albumin 2.5 L 05/21/18 05:48 Red Blood Count 4.04, Mean Corpuscular Volume 86.9, Mean Corpuscular Hemoglobin 26.5 L, Mean Corpuscular Hemoglobin Concent 30.5 L, Red Cell Distribution Width 22.0 H, Calcium Level 7.7 L Vital Signs Date Time Temp Pulse Resp B/P (MAP) Pulse Ox O2 Delivery O2 Flow Rate FiO2 05/21/18 13:10 16 05/21/18 08:42 66 169/70 05/21/18 06:00 97.2 93 05/19/18 16:10 Room Air I&O- Last 24 Hours up to 6 AM 05/21/18 06:00 Intake Total 660 ml Output Total 0 ml Balance 660 ml WILIAM JOHNS DO May 21, 2018 15:17
[2018-05-21] MEDS: IPRATROPIUM 0.5MG/ALBUTEROL 2.5MG INH SOL UD 3ML (DUONEB)(J7620) NEB PRN (18:29)
[2018-05-21] MEDS: ATORVASTATIN 20 MG TAB PO SCH (20:49)
[2018-05-21] MEDS: CALCIUM CARBONATE 500 MG CHEW U/D PO SCH (20:49)
[2018-05-21 22:00] VITALS: BP 132/60
[2018-05-21] MEDS: BISACODYL 5 MG TAB PO PRN (23:06)
[2018-05-22] MEDS: NORCO, ANEXSIA 5/325MG TABLET (HYDROcodone/ACETAMINOPHEN) PO PRN ×3 (01:52→21:48)
[2018-05-22] MEDS: METOPROLOL TART 50 MG TAB PO SCH ×2 (05:51→21:48)
[2018-05-22] MEDS: FAMOTIDINE 20 MG TAB PO SCH (05:51)
[2018-05-22] MEDS: **hydrALAZINE** 10 MG TAB PO SCH ×3 (05:52→21:49)
[2018-05-22] MEDS: CLOPIDOGREL 75 MG TAB PO SCH (05:52)
[2018-05-22] MEDS: CANDESARTAN 4MG TABLET PO SCH (05:52)
[2018-05-22] MEDS: ASPIRIN 81 MG ENTERIC TAB PO SCH (05:52)
[2018-05-22] MEDS: ALPRAZolam 0.5 MG TAB PO SCH ×3 (05:53→21:47)
[2018-05-22] MEDS: HEPARIN SOD (PORCINE) 5000 UNITS/ML VIAL SC SCH ×3 (05:53→22:00)
[2018-05-22] MEDS: MAGNESIUM OXIDE 400 MG TAB (MAG-OX) PO SCH ×2 (05:53→21:49)
[2018-05-22] MEDS: NYSTATIN 100,000 UNITS/GM TOPICAL PWD 15 GM TOP SCH ×2 (05:53→21:50)
[2018-05-22] MEDS: FLUTICASONE PROP 0.05% NASAL SPRAY 16 GM (FLONASE) SCH ×3 (05:54→21:50)
[2018-05-22] MEDS: SERTRALINE 100 MG TAB PO SCH (05:54)
[2018-05-22 05:55] LABS: HEMATOCRIT 31.9 % (36.0-47.0); HEMOGLOBIN 9.9 g/dl (12.0-15.5); MEAN CORPUSCULAR HEMOGLOBIN 26.6 pg (27.0-33.0); MEAN CORPUSCULAR VOLUME 85.8 fl (80.0-96.0); PLATELET COUNT, AUTOMATED 181 10^3/uL (150-450); RED BLOOD COUNT 3.72 10^6/uL (4.00-5.40); WHITE BLOOD COUNT 5.8 10^3/uL (4.0-10.0)
[2018-05-22 06:00] VITALS: BP 172/70
[2018-05-22 06:24] LABS: CALCIUM LEVEL 7.6 MG/DL (8.5-10.1); CREATININE FOR GFR 3.46 MG/DL (0.55-1.30); GLOMERULAR FILTRATION RATE 14.5 (>51); MAGNESIUM LEVEL 1.9 MG/DL (1.8-2.4)
[2018-05-22] MEDS: CALCIUM ACETATE 667 MG GELCAP PO SCH ×3 (07:01→18:00)
[2018-05-22] MEDS: LEVEMIR (INSULIN DETEMIR) 1 UNITS/0.01ML SC SCH (07:06)
[2018-05-22] MEDS: HumaLOG INSULIN (NovoLOG) PER UNIT SC SCH ×4 (07:07→21:00)
[2018-05-22] MEDS: SANTYL OINT 30GM TOP SCH (07:37)
[2018-05-22] MEDS: SYMBICORT 80/4.5MCG INHALER 6GM INH SCH ×3 (08:11→18:41)
--- NOTE | 2018-05-22 10:38 | IPN ---
DATE OF VISIT: 05/20/2018 Mrs. Ibarra is seen this afternoon on her bedside. She is resting comfortably in her bed at present. She was dialyzed yesterday, and then, she also had debridement of her foot wound. She has known history of peripheral vascular disease with prior left ejofq-zws-[id number] amputation and now she has a nonhealing wound on her right foot following transmetatarsal amputation. On physical exam, temperature 98.6 degrees Fahrenheit, heart rate 66 per minute and respiratory rate 18 per minute. Blood pressure 151/64 mmHg and oxygen saturation 95% on room air. Head atraumatic. Neck supple and jugular venous distention (JVD) mildly elevated. No oral thrush or ulcers. Heart sounds regular and lungs clear to auscultation. Abdomen soft and nontender. Extremities without any cyanosis or clubbing. Right lower extremity edema is at least 3+. Foot is wrapped in dressing. She has prior left kqger-wsh-cxsu amputation. Today's labs show WBC count 7.1, hemoglobin 10.5 and hematocrit 34.2. Sodium 136, potassium 4.9, CO2 24, BUN 49 and creatinine 4.01. PROBLEMS: 1. End-stage renal disease. Patient was dialyzed yesterday prior to operating room (OR). We will try to schedule her next dialysis either on Monday or Monday. At present, her volume status is still slightly decompensated. However, there is no emergent need for dialysis today. 2. Peripheral edema and congestive heart failure. She does have significant edema on lower extremities and has been noncompliant with fluid restriction. We have tried to remove as much fluid possible. However, when she goes home, she misses her dialysis treatments for several days and also gains significant amount of weight between treatments. We are trying to optimize her volume status now, and she needs to follow fluid restriction of 1500 mL per day. 3. Hyperkalemia. She was dialyzed and her hyperkalemia has improved. She needs to follow low potassium diet. We will continue to maintain her potassium in normal range with dialysis treatments. She needs to comply with her dietary restrictions and dialysis treatments. 4. Anemia. Her anemia has been stable and optimally corrected. No intervention is indicated at this point. 5. Hypertension. Blood pressure is also reasonably well-controlled on current antihypertensive meds.
[2018-05-22] MEDS ORDERED: HEPARIN 1,000 UNITS/ML 10ML VIAL (FOR RADIOLOGY& DIALYSIS ONLY) XX ONE (10:45)
[2018-05-22] MEDS ORDERED: HEPARIN 1,000 UNITS/ML 10ML VIAL (FOR RADIOLOGY& DIALYSIS ONLY) IV ONE (10:45)
[2018-05-22] MEDS: BISACODYL 5 MG TAB PO PRN (10:51)
--- NOTE | 2018-05-22 14:45 | IPNPDOC ---
Subjective Date Seen The patient was seen on 05/22/18. Subjective Chief Complaint/HPI Patient seen and examined at the bedside. Reports that she is feeling better overall this morning. She is scheduled for dialysis today. Objective Physical Examination General Exam: Positive: Alert, Cooperative, No Acute Distress ENT Exam: Positive: Atraumatic, Mucous membr. moist/pink Chest Exam: Positive: Clear to auscultation, Normal air movement Heart Exam: Positive: Rate Normal, Normal S1, Normal S2 Abdomen Exam: Positive: Soft; Negative: Tenderness Extremity Exam: Positive: Other (Left BKA, surgical dressing noted on right foot); Negative: Tenderness Psych Exam: Positive: Oriented x 3 Assessment /Plan Plan/VTE VTE Prophylaxis Ordered?: Yes Plan End-stage renal disease on HD Patient has a history of non-compliance and refused dialysis sessions in the past Nephrology consulted--patient scheduled for dialysis today Right foot wound. Vascular surgery consulted--Angiogram of lower extremity done on 05/16/18 s/p Wound debridement on 05/19/18. Decompensated systolic diastolic congestive heart failure. Echocardiogram from October 2017 revealed Ejection fraction (EF) 15%, grade 1 diastolic dysfunction. Nephrology on board for management of volume status with Dialysis ?Patchy infiltrate vs Atelectasis on imaging study. Respiratory panel is negative s/p course of antibiotic. Hypertension. Cont hydralazine, candesartan, metoprolol. Diabetes. Levemir Insulin sliding scale. Hx of Coronary artery disease, status post stent. Cont Aspirin, Plavix, Metoprolol and Lipitor Hx of COPD. Cont meds as ordered Medical noncompliance Complicating patient's care. Deep venous thrombosis (DVT) prophylaxis Heparin SC Dispo--Anticipate D/C in the next 24-48hrs VS, I&O, 24H, Fishbone Vital Signs/I&O Vital Signs Date Time Temp Pulse Resp B/P (MAP) Pulse Ox O2 Delivery O2 Flow Rate FiO2 05/22/18 11:22 18 05/22/18 06:00 98.4 64 172/70 (104) 98 05/19/18 16:10 Room Air I&O- Last 24 Hours up to 6 AM 05/22/18 06:00 Intake Total 1740 ml Output Total 3000 ml Balance -1260 ml Laboratory Data 24H LABS Laboratory Tests 2 05/21/18 17:56: Bedside Glucose (Misc Panel) 116H 05/21/18 21:05: Bedside Glucose (Misc Panel) 117H 05/22/18 05:42: Nucleated Red Blood Cells % (auto) 0.0, Anion Gap 9, Glomerular Filtration Rate 14.5L, Blood Urea Nitrogen 40H, Creatinine 3.46H, Sodium Level 131L, Potassium Level 5.0, Chloride Level 98, Carbon Dioxide Level 24, Calcium Level 7.6L, Magnesium Level 1.9 05/22/18 11:09: Bedside Glucose (Misc Panel) 259H CBC/BMP Laboratory Tests 05/22/18 05:42 Red Blood Count 3.72 L, Mean Corpuscular Volume 85.8, Mean Corpuscular Hemoglobin 26.6 L, Mean Corpuscular Hemoglobin Concent 31.0 L, Red Cell Distribution Width 22.2 H, Calcium Level 7.6 L Microbiology Microbiology 05/12/18 Blood Culture - Final, Complete NO GROWTH AFTER 5 DAYS 05/12/18 Blood Culture - Final, Complete NO GROWTH AFTER 5 DAYS 05/20/18 Group A Streptococcus Screen ([facility]G) - Final, Complete 05/20/18 Group A Streptococcus Screen ([facility]G) - Final, Complete 05/16/18 Respiratory Virus Panel (PCR) ([facility]) - Final, Complete 05/12/18 Gram Stain - Final, Complete 05/12/18 Wound Culture - Final, Complete Enterobacter Cloacae Complex MAYI HOLT MD May 22, 2018 14:45
[2018-05-22 17:00] VITALS: BP 158/76
[2018-05-22] MEDS: DAKIN'S 0.25% HALF-STRENGTH SOLN 480 ML TOP SCH (18:00)
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
--- NOTE | 2018-05-22 19:47 | IPN ---
DATE: 05/22/2018 Mrs. Ibarra is seen this morning on her bedside. She is sitting in her wheelchair and reports not feeling well due to neck and headache. Her chest pain has improved. She denies any nausea or vomiting. Her diarrhea has also improved. She was dialyzed yesterday and 3 liters fluid was removed. PHYSICAL EXAMINATION: Temperature 98.1 degrees Fahrenheit, heart rate 80 per minute and respiratory rate 18 per minute. Blood pressure 142/76 mmHg and oxygen saturation 98% on room air. Head is atraumatic. Neck is supple and without JVD sitting upright in the chair. Lungs sound clear to auscultation and heart sounds are regular. Abdomen soft and nontender. Bowel sounds are present. Extremities have no cyanosis or clubbing. Her extremities have significant edema on the lower extremities and right foot is wrapped in dressing. She has a left [id number]-kgh-xvpk amputation. Neurologically, she is awake, alert and at her baseline mentation. Today's labs show white blood cell (WBC) count 5.8, hemoglobin 9.9 and hematocrit 31.9. Platelets 181. Sodium 131, potassium, chloride 98, CO2 24, BUN 40 and creatinine 3.46. PROBLEMS: 1. End-stage renal disease. The patient is regularly dialyzed on Monday, and Monday schedule. She was dialyzed yesterday due to hyperkalemia and hypervolemia. We will plan to dialyze her again this afternoon as she still has significant peripheral edema. This will also help to get her back on her regular schedule. We will try to remove about 3 liters of fluid again today. 2. Hypervolemia and peripheral edema. Her volume status is chronically decompensated due to noncompliance with fluid restriction and dialysis treatments. We are going to dialyze her again today and try to remove at least 3 liters of fluid as tolerated. 3. Hyponatremia. Mild hyponatremia persists despite mild improvement in her glucose level. We hope that this will correct with dialysis and fluid removal today. 4. Hyperkalemia. Potassium level has already corrected since yesterday. We will dialyze her with 2.0 mEq potassium bath today, which will bring her potassium level down to about 4.0 range. 5. Anemia. Her anemia is stable at present and we will continue to treat her with Aranesp once a week during dialysis. 6. Nonhealing right foot wound. The patient had a transmetatarsal amputation and her foot wound has been infected and not healing. Unfortunately, she has been quite noncompliance with her care and has significant edema. She also is known to have peripheral vascular disease and is being followed by Dr. Stern.
[2018-05-22] MEDS: ATORVASTATIN 20 MG TAB PO SCH (21:47)
[2018-05-22] MEDS: CALCIUM CARBONATE 500 MG CHEW U/D PO SCH (21:49)
[2018-05-22 22:00] VITALS: BP 132/56
[2018-05-23 05:48] LABS: HEMATOCRIT 34.8 % (36.0-47.0); HEMOGLOBIN 10.5 g/dl (12.0-15.5); MEAN CORPUSCULAR HEMOGLOBIN 26.6 pg (27.0-33.0); MEAN CORPUSCULAR HGB CONC 30.2 g/dl (32.0-36.5); MEAN CORPUSCULAR VOLUME 88.1 fl (80.0-96.0); PLATELET COUNT, AUTOMATED 179 10^3/uL (150-450); RED BLOOD COUNT 3.95 10^6/uL (4.00-5.40); WHITE BLOOD COUNT 5.8 10^3/uL (4.0-10.0)
[2018-05-23] MEDS: HEPARIN SOD (PORCINE) 5000 UNITS/ML VIAL SC SCH (05:58)
[2018-05-23 06:00] VITALS: BP 155/76
[2018-05-23 06:23] LABS: CALCIUM LEVEL 7.7 MG/DL (8.5-10.1); CREATININE FOR GFR 2.88 MG/DL (0.55-1.30); GLOMERULAR FILTRATION RATE 17.9 (>51); MAGNESIUM LEVEL 2.1 MG/DL (1.8-2.4); POTASSIUM SERUM 4.6 MEQ/L (3.5-5.1)
[2018-05-23] MEDS: CALCIUM ACETATE 667 MG GELCAP PO SCH ×2 (07:59→13:19)
[2018-05-23] MEDS: HumaLOG INSULIN (NovoLOG) PER UNIT SC SCH ×2 (07:59→11:46)
[2018-05-23] MEDS: ALPRAZolam 0.5 MG TAB PO SCH (07:59)
[2018-05-23 08:02] VITALS: BP 155/76
[2018-05-23] MEDS: ASPIRIN 81 MG ENTERIC TAB PO SCH (08:02)
[2018-05-23] MEDS: **hydrALAZINE** 10 MG TAB PO SCH (08:02)
[2018-05-23] MEDS: CLOPIDOGREL 75 MG TAB PO SCH (08:02)
[2018-05-23] MEDS: MAGNESIUM OXIDE 400 MG TAB (MAG-OX) PO SCH (08:02)
[2018-05-23] MEDS: SERTRALINE 100 MG TAB PO SCH (08:02)
[2018-05-23] MEDS: METOPROLOL TART 50 MG TAB PO SCH (08:03)
[2018-05-23] MEDS: CANDESARTAN 4MG TABLET PO SCH (08:03)
[2018-05-23] MEDS: FAMOTIDINE 20 MG TAB PO SCH (08:04)
[2018-05-23] MEDS: LEVEMIR (INSULIN DETEMIR) 1 UNITS/0.01ML SC SCH (08:05)
[2018-05-23] MEDS: NYSTATIN 100,000 UNITS/GM TOPICAL PWD 15 GM TOP SCH (08:05)
[2018-05-23] MEDS: DAKIN'S 0.25% HALF-STRENGTH SOLN 480 ML TOP SCH (08:06)
[2018-05-23] MEDS: FLUTICASONE PROP 0.05% NASAL SPRAY 16 GM (FLONASE) SCH (08:06)
[2018-05-23] MEDS: SANTYL OINT 30GM TOP SCH (08:06)
[2018-05-23] MEDS: NORCO, ANEXSIA 5/325MG TABLET (HYDROcodone/ACETAMINOPHEN) PO PRN (08:21)
[2018-05-23 08:31] VITALS: BP 172/78
[2018-05-23] MEDS: SYMBICORT 80/4.5MCG INHALER 6GM INH SCH (09:07)
[2018-05-23] MEDS ORDERED: HYDR-3719 PO (10:22)
[2018-05-23] MEDS ORDERED: ALPR0.5T3 PO (10:22)
[2018-05-23] MEDS ORDERED: NEBUMIS2 XX (10:22)
--- NOTE | 2018-05-23 15:45 | IPN ---
DATE: 05/23/2018 Ms. Ibarra is seen this morning on her bedside. She was dialyzed Monday and again Monday due to hypervolemia and hyperkalemia. She still has a complaint of leg swelling which seems to be much improved to me. She denies any dyspnea or chest pain. She does have a complaint of pain in her neck and headache. She has no nausea or vomiting. PHYSICAL EXAMINATION: Temperature 97 degrees Fahrenheit, heart rate 72 per minute and respiratory rate 18 per minute. Blood pressure 172/78 mmHg and oxygen saturation 95% on room air. Head is atraumatic. Neck is supple and without jugular venous distention (JVD) or thyroid enlargement. Heart sounds are regular. Lungs sound clear to auscultation. Abdomen is soft and nontender. Bowel sounds are normal. Extremities have no cyanosis or clubbing. Right foot is wrapped in dressing. She has a left ncosr-lyh-cvol amputation previously with well-healed stump. She does have edema on her thighs and right lower leg. Neurologically, she is awake, alert and oriented times three. LABORATORY DATA: Today's laboratories show WBC count 5.8, hemoglobin 10.5 and hematocrit 34.8. Platelets 179. Sodium 133, potassium 4.6, CO2 27, BUN 24 and creatinine 2.88. Glucose 434 and calcium 7.7. PROBLEMS: 1. End-stage renal disease. The patient has been dialyzed on Monday and Monday this week and volume status is much improved. We are not planning to dialyze her today and she can go to outpatient dialysis clinic tomorrow if she gets discharged. 2. Hyponatremia. Her corrected calcium is within normal range now. Mild hyponatremia is related to hyperglycemia and will not need any intervention other than her regular insulin for getting her hyperglycemia corrected. 3. Anemia. At this point, her anemia is stable and we will continue to manage with dialysis and weekly dose of Aranesp in the hospital. She should come to dialysis clinic regularly and there she will also be monitored as an outpatient. 4. Peripheral vascular disease and nonhealing right foot wound. She had a transmetatarsal amputation of right foot, following which her wound healing has been slow with infection. She did have a debridement done and will be followed as an outpatient. Unfortunately, she has been quite noncompliant with her treatments. DISPOSITION: From a renal standpoint, the patient can be discharged to home and followup in outpatient dialysis clinic. She will be scheduled for next dialysis tomorrow. Patient has a long history of noncompliance and she has been missing her dialysis treatments for more than a week at a time. I have discussed with her about the importance for getting her dialysis treatment every other day, three times a week.
--- NOTE | 2018-05-23 17:31 | DS.PDOC ---
Discharge Summary General Date of Admission May 12, 2018 at 17:44 Date of Discharge 05/23/18 Specialist/Consultants Involve Dr. Stern of Vascular Surgery, Dr. Michel Coffey, Dr. 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 HISTORY OF PRESENT ILLNESS: . 58 y/o female with past medical history of DM2, CAD s/p stenting, PVD s/p left BKA, COPD, HTN and ESRD on HD T,R,Sa. non-compliant with dialysis who presented to the ED with complaints of SOB. Of note, the patient has a significant history of noncompliance and had not been following up with her dialysis sessions regularly. In the ER, the patient was noted to be anasarcic and she was admitted to the hospitalist service for further evaluation. During hospitalization, nephrology was consulted and volume optimized the patient with dialysis. Also, the patient was seen by vascular surgery and underwent an angiogram of the lower extremity on 05/16/18, and underwent wound debridement on 05/19/18. Also of note, the patient was treated with empiric antibiotic therapy for her wound and for possible underlying pneumonia. At this time, the patient states that she is feeling much better and is eager to return home. She has been volume optimized. I have had an extensive conversation with the patient regarding compliance to her medical therapy including dialysis. The patient has verbalized understanding of the same, and notes that she will do her best to make her regularly scheduled dialysis appointments. I advised patient to follow-up with her primary care physician within 7 days, with vascular surgery in 1-2 weeks, and with nephrology for her regularly scheduled dialysis appointment. She has been consulted to return to the ER for any acute emergencies. DISCHARGE MEDICATIONS: Please see below. ALLERGIES: Please see below. PHYSICAL EXAMINATION ON DISCHARGE: VITAL SIGNS: Please see below. General Exam: Positive: Alert, Cooperative, No Acute Distress ENT Exam: Positive: Atraumatic, Mucous membr. moist/pink Chest Exam: Positive: Clear to auscultation, Normal air movement Heart Exam: Positive: Rate Normal, Normal S1, Normal S2 Abdomen Exam: Positive: Soft; Negative: Tenderness Extremity Exam: Negative: Tenderness, Left BKA, surgical dressing noted on right foot Psych Exam: Positive: Oriented x 3 LABORATORY DATA: Please see below. IMAGING: CT MAXILLOFACIAL WITHOUT CONTRAST: 05/20/2018. TECHNIQUE: Axial soft-tissue and bone windows were obtained with both coronal and sagittal reconstructions provided in bone window settings. FINDINGS: No prior study. The nasal septum is deviated towards the left side. The ethmoid, frontal, and sphenoid sinuses are clear. The maxillary sinuses show minor mucosal thickening near the OMC on the left but no air-fluid level or other areas of thickened mucosa. The infundibulum shows mild stenosis on the left due to mucosal thickening, but it is patent on the right. The ostium and infundibulum are intact. Hiatus semilunaris preserved. There is no contra bullosa, and the middle turbinates are grossly intact. Nasal air passages are preserved. The nasal bones and the nasal spine of the maxilla are intact. Zygomatic arches are preserved. The medial orbital rick, orbital struts, and floors all intact. Fat anterior to the masseter muscles on both sides is symmetric, has lower CT attenuation values than other subcutaneous fat about the submandibular and malar regions. Suggests a slightly different character of the fat. It has subtle edges that may reflect margins. The bony mandible shows no acute finding. There is some missing dentition. The maxilla is edentulous. There are some degenerative changes at the articulation of the dens with anterior arch of C1. Visible cervical vertebral levels otherwise intact. The mastoids are symmetric and without opacification to suggest mastoiditis. The internal auditory canals and semicircular canals are unremarkable. There is no opacification of the middle ear. Bony ossicles are grossly symmetric. There is no opacification of Prussak space. The bony scutum is sharply defined. The nasopharynx, oropharynx, and visualized hypopharynx intact. Tongue base grossly intact. Visualized parotid and submandibular glands are unremarkable. No pathologic-sized adenopathy visible in the neck. IMPRESSION: 1. There is no acute or chronic sinusitis. No air-fluid levels, mucosal thickening, or destructive lesions in the sinuses. 2. There is trace mucosal thickening at the OMC on the left with narrowed ostium and infundibulum, but no occlusion. The right OMC and infundibulum are normal. 3. Mastoids, IACs, and semicircular canals grossly intact. No gross abnormality of the middle ears. Bony skull base intact. 4. Slight deviation nasal septum towards the left. CT CHEST WITHOUT IV CONTRAST: CT chest performed without IV contrast. Sagittal and coronal reconstruction images are performed. Comparison is made with a prior study of 01/18/2018. There is a moderate right pleural effusion which has increased since the prior CT scan. There is adjacent patchy atelectasis or infiltrate in the right middle and lower lobes. Mild chronic interstitial opacities are seen in the left upper lobe. There is mild cardiomegaly again seen. There is no pericardial effusion. There are several nonenlarged axillary and mediastinal lymph nodes present. There is diffuse edema in the chest and abdominal rick similar to the prior study. There is mild perihepatic ascites. IMPRESSION: Mild increase in right pleural effusion which is now moderate in size. There is patchy atelectasis or infiltrate in the right middle and lower lobes. Mild cardiomegaly unchanged. There is diffuse edema in the chest and abdominal rick similar to the prior study. There is new mild perihepatic ascites. PROGNOSIS: Poor long-term prognosis given history of noncompliance ACTIVITY: As tolerated. DIET: Renal diet, 1500 mL fluid restricted diet DISCHARGE PLAN: DISPOSITION: 01 Home, Self-Care. DISCHARGE INSTRUCTIONS: I advised patient to follow-up with her primary care physician within 7 days, with vascular surgery in 1-2 weeks, and with nephrology for her regularly scheduled dialysis appointment. She has been consulted to return to the ER for any acute emergencies. DISCHARGE CONDITION: Stable. TIME SPENT ON DISCHARGE: Greater than 30 minutes. Vital Signs/I&Os Vital Signs Date Time Temp Pulse Resp B/P (MAP) Pulse Ox O2 Delivery O2 Flow Rate FiO2 05/23/18 08:51 18 05/23/18 08:31 97.1 72 172/78 (109) 95 05/19/18 16:10 Room Air I&O- Last 24 Hours up to 6 AM 05/23/18 06:00 Intake Total 360 ml Output Total 3500 ml Balance -3140 ml Laboratory Data Labs 24H Laboratory Tests 2 05/22/18 20:35: Bedside Glucose (Misc Panel) 70 05/23/18 05:35: Nucleated Red Blood Cells % (auto) 0.0 05/23/18 05:36: Anion Gap 7L, Glomerular Filtration Rate 17.9L, Blood Urea Nitrogen 24H, Creatinine 2.88H, Sodium Level 133L, Potassium Level 4.6, Chloride Level 99, Carbon Dioxide Level 27, Calcium Level 7.7L, Magnesium Level 2.1 05/23/18 11:32: Bedside Glucose (Misc Panel) 329H CBC/BMP Laboratory Tests 05/23/18 05:35 Red Blood Count 3.95 L, Mean Corpuscular Volume 88.1, Mean Corpuscular Hemoglobin 26.6 L, Mean Corpuscular Hemoglobin Concent 30.2 L, Red Cell Distribution Width 22.6 H 05/23/18 05:36 Calcium Level 7.7 L FSBS Laboratory Tests Test 05/22/18 20:35 05/23/18 11:32 Range/Units Bedside Glucose (Misc Panel) 70 329 70-105 MG/DL Microbiology Microbiology 05/20/18 Group A Streptococcus Screen ([facility]G) - Final, Complete 05/20/18 Group A Streptococcus Screen ([facility]) - Final, Complete 05/16/18 Respiratory Virus Panel (PCR) ([facility]G) - Final, Complete Discharge Medications Scheduled Alprazolam (Alprazolam) 0.5 Mg Tab, 0.5 MG PO TID Aspirin (Aspirin EC) 81 Mg Tab, 81 MG PO DAILY, (Reported) Atorvastatin Calcium (Atorvastatin Calcium) 40 Mg Tab, 40 MG PO QHS, (Reported) Calcium Acetate (Calcium Acetate) 667 Mg Cap, 1,334 MG PO WM, (Reported) Calcium Carbonate (Tums) 500 Mg Chw, 1,000 MG PO QHS, (Reported) Candesartan Cilexetil (Candesartan Cilexetil) 4 Mg Tab, 2 MG PO DAILY, (Reported) Clopidogrel Bisulfate (Clopidogrel) 75 Mg Tab, 75 MG PO DAILY, (Reported) Famotidine (Famotidine) 40 Mg Tab, 40 MG PO DAILY, (Reported) Fluticasone Propionate (Fluticasone Propionate) 50 Mcg/Act Spr, 1 SPRAY NA TID, (Reported) Fluticasone/Vilanterol (Breo Ellipta 100-25 Mcg/INH) 1 Inh Inh, 1 PUFF INH DAILY, (Reported) Hydralazine HCl (Hydralazine HCl) 10 Mg Tab, 10 MG PO TID, (Reported) Insulin Aspart (Novolog Flexpen) 100 Unit/Ml Inj, 0 SC AC, (Reported) PER SLIDING SCALE Insulin Detemir (Levemir) 1 Units/0.01 Ml Susp, 20 UNITS SC DAILY, (Reported) Metoprolol Tartrate (Metoprolol Tartrate) 50 Mg Tab, 50 MG PO BID, (Reported) Senna (Senna Laxative) 8.6 Mg Tab, 8.6 MG PO BID, (Reported) Sertraline HCl (Sertraline HCl) 100 Mg Tab, 100 MG PO DAILY, (Reported) Scheduled PRN Acetaminophen/Hydrocodone (Hydrocodone/Acetaminophen 10-325 mg) 1 Tab Tab, 1 TAB PO Q4H PRN for PAIN Albuterol Sulfate (Ventolin Hfa) 108 Mcg/Act Aer, 2 PUFFS INH QID PRN for SHORTNESS OF BREATH, (Reported) Nitroglycerin (Nitrostat) 0.4 Mg Subl, 0.4 MG SL Q5MP PRN for CHEST PAIN, (Reported) Nystatin (Nystatin Powder) 100,000 Unit/Gm Pow, 1 APLCT TOP BID PRN for RASH, (Reported) APPLY UNDER BREASTS, ABD FOLDS, GROIN Allergies Coded Allergies: Codeine (Verified Allergy, Intermediate, hives, 01/28/18) Morphine (Verified Allergy, Intermediate, hives, 01/28/18) Contrast Media (Verified Allergy, Unknown, 09/06/11) MAYI HOLT MD May 23, 2018 17:31
== END 2018-05-23 13:24 | disposition home health service (06) | DRG 981 ==
LOC: EDBD 15:34 → M ED 15:34 → M ED INP 17:44 → M MSPAV 22:28
PROVIDERS: ADMIT Internal Medicine; ATTEND Internal Medicine
PROC: 5A1D70Z Performance of Urinary Filtration, Intermittent, Less than 6 Hours Per Day (ICD-10-PCS; 2018-05-12)
PROC: 0KBV0ZZ Excision of Right Foot Muscle, Open Approach (ICD-10-PCS; principal; 2018-05-19 15:49)
DX: I13.2 Hypertensive heart and chronic kidney disease with heart failure and with stage 5 chronic kidney disease, or end stage renal disease (principal); N18.6 End stage renal disease; J18.9 Pneumonia, unspecified organism; I50.41 Acute combined systolic (congestive) and diastolic (congestive) heart failure; L97.515 Non-pressure chronic ulcer of other part of right foot with muscle involvement without evidence of necrosis; E87.1 Hypo-osmolality and hyponatremia; T87.89 Other complications of amputation stump; E87.5 Hyperkalemia; E11.51 Type 2 diabetes mellitus with diabetic peripheral angiopathy without gangrene; I25.10 Atherosclerotic heart disease of native coronary artery without angina pectoris; Z95.2 Presence of prosthetic heart valve; J44.9 Chronic obstructive pulmonary disease, unspecified; Z91.15 Patient's noncompliance with renal dialysis; Z79.4 Long term (current) use of insulin; Z79.899 Other long term (current) drug therapy; Z79.82 Long term (current) use of aspirin; Z88.5 Allergy status to narcotic agent; Z91.041 Radiographic dye allergy status; F17.210 Nicotine dependence, cigarettes, uncomplicated; E78.5 Hyperlipidemia, unspecified; D63.1 Anemia in chronic kidney disease; I70.25 Atherosclerosis of native arteries of other extremities with ulceration; Y83.5 Amputation of limb(s) as the cause of abnormal reaction of the patient, or of later complication, without mention of misadventure at the time of the procedure

== ENCOUNTER 2018-06-12 17:50 | Emergency (ER) | payer MEDICAID, MEDICARE ==
[~2018-06-12 17:50] MED LIST changes: +CAND4TAB PO; +NEBUMIS2 XX
[2018-06-12] MEDS ORDERED: ATROPINE SULF 1MG/10ML SYRINGE (J0461) ONE (17:51)
[2018-06-12] MEDS ORDERED: CALCIUM CHLORIDE 10% 1 GM/10 ML SYR ONE (17:51)
[2018-06-12] MEDS ORDERED: AMIODARONE 150MG/3ML INJ (J0282) ONE (17:51)
[2018-06-12] MEDS ORDERED: EPINEPHrine 1MG/10ML SYRINGE 1.5IN ONE ×2 (17:51)
[2018-06-12] MEDS ORDERED: SODIUM BICARBONATE 8.4% INJ 50 ML SYRINGE ONE ×2 (17:51)
[2018-06-12] MEDS ORDERED: NALOXONE INJ 0.4 MG/1 ML VIAL (J2310) ONE (17:51)
[2018-06-12 18:22] LABS: HEMOGLOBIN 11.1 g/dl (12.0-15.5); MEAN CORPUSCULAR HEMOGLOBIN 27.3 pg (27.0-33.0); MEAN CORPUSCULAR HGB CONC 28.5 g/dl (32.0-36.5); MEAN CORPUSCULAR VOLUME 95.8 fl (80.0-96.0); PLATELET COUNT, AUTOMATED 143 10^3/uL (150-450); RED BLOOD COUNT 4.07 10^6/uL (4.00-5.40)
[2018-06-12 18:23] LABS: ABG BASE EXCESS -16.7 (-2.0-2.0); ABG HCO3 14.8 MEQ/L (22.0-26.0); ABG O2 SATURATION 81.8 % (95.0-99.0); ABG PARTIAL PRESSURE O2 66.4 mmHg (75.0-100.0); ABG STANDARD HCO3 11.7 MEQ/L (22.0-26.0); ABG TOTAL CO2 16.7 MEQ/L (22.0-29.0)
[2018-06-12 18:25] LABS: ABG PARTIAL PRESSURE CO2 61.3 mmHg (35.0-45.0)
[2018-06-12 18:26] LABS: INR 1.42; PROTHROMBIN TIME 17.6 SECONDS (12.1-14.4)
[2018-06-12 18:27] LABS: PARTIAL THROMBOPLASTIN TIME 62.3 SECONDS (25.4-37.6)
[2018-06-12] MEDS ORDERED: D5W 1,000 ML IV SCH (18:30)
[2018-06-12] MEDS ORDERED: NOREPINEPHRINE 4 MG/4 ML AMP As Ordered ONE (18:42)
[2018-06-12 18:46] LABS: D-DIMER QUANT > 4000 ng/ml (<500)
--- NOTE | 2018-06-12 18:48 | REP ---
Portable chest, single AP supine view, 06:29 p.m.: Comparison is 05/12/2018. There is an endotracheal tube with the tip in satisfactory position at the level of the aortic arch, above the neptali as an interval change. The right IJ dual lumen central venous catheter remains in satisfactory position with the tip at the confluence of the superior vena cava and right atrium, unchanged. The previous right pleural effusion has resolved. There is diffuse bilateral interstitial coarsening and indistinctness as an interval change compatible with interstitial infiltrates. There is cardiomegaly, unchanged. Impression: Bilateral interstitial infiltrates as an interval change. Cardiomegaly, unchanged. The previous right pleural effusion has resolved. Endotracheal tube with the tip in satisfactory position. Right IJ central venous catheter with the tip in satisfactory position, unchanged. Electronically Signed by Abhi De La Cruz MD 06/12/2018 06:40 P
[2018-06-12 18:52] LABS: ALBUMIN 2.1 GM/DL (3.2-5.2); ATYPICAL LYMPH 4 % (0-5); BILIRUBIN,DIRECT 0.2 MG/DL (0.0-0.2); BILIRUBIN,TOTAL 0.3 MG/DL (0.2-1.0); C REACTIVE PROTEIN QUANTITATIV 2.07 MG/DL (0.00-0.30); CALCIUM LEVEL 6.8 MG/DL (8.5-10.1); CREATININE FOR GFR 4.65 MG/DL (0.55-1.30); GLOMERULAR FILTRATION RATE 10.3 (>51); LYMPHOCYTES 35 % (16-52); MB/CK RELATIVE INDEX 3.93 (< OR =4); MONOCYTES 13 % (0-8); MYELOCYTES 1 % (0-0); NEUTROPHILS 46 % (35-75); PHOSPHORUS LEVEL 4.8 MG/DL (2.5-4.9); POTASSIUM SERUM 3.8 MEQ/L (3.5-5.1); TOTAL PROTEIN 5.4 GM/DL (6.4-8.2); TROPONIN I 0.17 NG/ML (< 0.10)
[2018-06-12 18:53] LABS: ANISOCYTOSIS 1+; POIKILOCYTOSIS 1+
[2018-06-12 18:54] LABS: BURR CELLS 1+; SCHISTOCYTES 1+
[2018-06-12 18:55] LABS: PLATELET ESTIMATE DECREASED (NORMAL)
[2018-06-12] MEDS ORDERED: NOREPINEPHRINE BITARTRATE 8 MG in D5W 492 ML IV SCH (19:00)
[2018-06-12 20:06] VITALS: BP 72/46
--- NOTE | 2018-06-12 21:06 | RO ---
DATE OF PROCEDURE: 06/12/2018 PREPROCEDURE DIAGNOSIS: Cardiac arrest. POSTPROCEDURE DIAGNOSIS: Cardiac arrest. PROCEDURE PERFORMED: Left IJ triple lumen central line. PHYSICIAN PERFORMING PROCEDURE: Margie Adam MD PULP MILL SUPERVISOR: None. SEDATION: None. VENTILATION: Patient on mechanical ventilation with 100% FiO2. Refer to emergency room orders. ANESTHETIC: None. ESTIMATED BLOOD LOSS: 10 mL HISTORY: Requested by Dr. Nguyen from the emergency room to place a emergent left triple lumen central line, status post cardiac arrest. Emergent procedure consent was not done. DESCRIPTION OF PROCEDURE: Patient was in supine position on the ventilator. The left side of patient has a right PermaCath. The left side of patient's neck was cleaned with Chloraprep. Patient was covered in the usual manner. Ultrasound probe with sterile probe cover was used. Introducer needle was inserted with ultrasound guidance. Blood return was obtained. Wire was threaded through the introducer needle and introducer needle was removed. Wire position was confirmed with ultrasound. Subsequently site was dilated and triple lumen central line was inserted over the guidewire via Seldinger technique and subsequently, all three ports of the central line were flushed and clamped. The central line was secured with stitches. Dressing was placed. Central line placement was confirmed with x-ray. Patient tolerated the procedure. Procedure was done in-between cardiac arrests. Please refer to emergency room documentation for further information.
--- NOTE | 2018-06-12 21:13 | RO ---
DATE OF PROCEDURE: 06/12/2018 PREPROCEDURE DIAGNOSIS: Cardiac arrest. POSTPROCEDURE DIAGNOSIS: Cardiac arrest. Hypotension. PROCEDURE PERFORMED: Attempted arterial line. PHYSICIAN PERFORMING PROCEDURE: Margie Adam MD APPRENTICE ELECTRICIAN: None. SEDATION: None. VENTILATION: Patient on ventilator receiving 100% FiO2. Vent setting as per emergency room provider. ANESTHETIC: None. ESTIMATED BLOOD LOSS: 10 mL HISTORY: Emergency procedure was done following cardiac arrest. DESCRIPTION OF PROCEDURE: Initially patient's right wrist was cleaned with Chloraprep. Attempt was made to get a arterial line. Two attempts were made. Due to low blood pressure, arterial line placement was unsuccessful. Subsequently, right femoral was attempted, but while attempting, patient had another cardiac arrest. Subsequently, procedure was aborted. Therefore arterial femoral and radial lines were both unsuccessful. Dressing was placed. Procedure was aborted due to cardiac arrest. Refer to emergency room documentation for further information.
--- NOTE | 2018-06-12 21:19 | ECGEPIP ---
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
--- NOTE | 2018-06-12 21:26 | ER ---
DATE: 06/12/2018 Critical care consult was called for patient Isabella Ibarra. She had presented to the emergency department (ED) after having a PEA arrest at dialysis earlier this evening. Cardiopulmonary resuscitation was started at dialysis with return of spontaneous circulation (ROSC), reportedly. Upon arrival to the ED, the patient was pulseless again, and she had another round of CPR done including rounds of epinephrine and bicarbonate and calcium chloride. The patient had ROSC again achieved. The total time from her initial arrest to second ROSC was approximately 40-45 minutes. However, the patient then suffered another cardiac arrest and CPR was initiated again She had a central line placed by the hospitalist in between arrests. She was also started on Levophed and a bicarbonate drip. The patient's family was in the waiting area. She has multiple sons as well as a daughter and other family members. I updated them on her condition and her repeated cardiac arrests and poor prognosis. There were repeated discussions about her goals of care and her prognosis. The patient suffered her approximately fourth or fifth event of asystole and CPR was started again. Discussed with the family again about her extremely poor prognosis at that time given her multiple arrests and prolonged down time, and likely concern for anoxic brain injury. At that time, the family decided that they would want to cease any further resuscitation efforts and to make her comfortable. The patient's sons and daughter were all there and were in agreement. The patient's family then went to her bedside to be with her for her eventual passing. Total time spent with family discussions was approximately 50 minutes. STARLA
[2018-06-12] MEDS ORDERED: SODIUM BICARBONATE 8.4% INJ 50 ML SYRINGE IV STA (22:36)
[2018-06-12] MEDS ORDERED: EPINEPHrine 1MG/10ML SYRINGE 1.5IN IV STA ×2 (22:36)
[2018-06-12] MEDS ORDERED: SODIUM BICARBONATE 100 MEQ in D5W 1,000 ML IV SCH (22:45)
--- NOTE | 2018-06-13 08:49 | REP ---
Portable chest, single AP supine view, 07:27 p.m.: Comparison is from 06:29 p.m. earlier today. There has been interval placement of an a central line. There is a new central venous catheter entering from a left IJ approach with the tip in satisfactory location in the superior vena cava. There is no pneumothorax or hemothorax. The bilateral infiltrates have worsened and in addition to the interstitial infiltrates, there are now bilateral diffuse alveolar infiltrates. Electronically Signed by Abhi De La Cruz MD 06/13/2018 08:40 A
[2018-06-13] MEDS ORDERED: EPINEPHrine 1MG/10ML SYRINGE 1.5IN IV STA ×3 (09:46)
[2018-06-13] MEDS ORDERED: SODIUM BICARBONATE 8.4% INJ 50 ML SYRINGE IV STA ×3 (09:46)
== END 2018-06-12 23:05 | disposition expired ==
LOC: M ED 17:50
DX: I46.9 Cardiac arrest, cause unspecified (principal); E11.51 Type 2 diabetes mellitus with diabetic peripheral angiopathy without gangrene; I25.10 Atherosclerotic heart disease of native coronary artery without angina pectoris; I73.9 Peripheral vascular disease, unspecified; Z99.2 Dependence on renal dialysis; Z88.5 Allergy status to narcotic agent; Z91.041 Radiographic dye allergy status
CPT/HCPCS: 31500; 36415; 36556; 51702; 71045; 80048; 80076; 82150; 82550; 82553; 82803; 83605; 83690; 83735; 84100; 84484; 85025; 85379; 85610; 85730; 86140; 86850; 86900; 86901; 87040; 92950; 93005; 93041; 96374; 96375; 96376; 99291; J0282; J0461; J2310